=== PATIENT | female | born 1985 | race Caucasian/White ===

== ENCOUNTER 2022-12-24 14:55 | Outpatient (OUT) | payer OTHER, SELFPAY ==
--- NOTE | 2022-12-24 15:01 | CT_ITS ---
The [address] [address] Patient Name: TARYN SANTACRUZ MRN: [id number] date: 1985 Sex: F Assigned Patient Location: CT Current Patient Location: Accession/Order Number: [id number] Exam Date: 12/24/2022 15:06 Report Date: 12/25/2022 08:05 At the request of: NIRAV RAMOS Procedure: CT chest wo con EXAMINATION: CT chest wo con HISTORY: Multiple Pulmonary Nodules R91.8 COMPARISON: No relevant comparison available. TECHNIQUE: Multi-planar CT images were created with IV contrast. Axial, Coronal, and Sagittal images. Dose reduction techniques were achieved by using automated exposure control and/or adjustment of mA and/or kV according to patient size and/or use of iterative reconstruction technique. FINDINGS: LUNGS: A few scattered subcentimeter pulmonary nodules noted throughout both lungs the largest identified in the right upper lobe subpleural axial image #42 measuring 6 mm in diameter, semisolid. No bronchiectasis or peribronchial thickening. No focal parenchymal infiltrates PLEURA: No mass, effusion, or pneumothorax. VASCULATURE: No abnormality. LISA: No mass or adenopathy. MEDIASTINUM: No mass or adenopathy. CARDIAC: No enlargement, pericardial thickening, or significant calcification. AORTA: No aneurysm or dissection. CHEST WALL: No mass or axillary adenopathy. BONES: No bone lesion or fracture. LIMITED ABDOMEN: No suspicious findings. Limited images of the upper abdomen. OTHER: Negative. CT/CT chest wo con IMPRESSION: Scattered pulmonary nodules measuring up to 6 mm in the right, nonspecific Electronically authenticated by: SHIVANI METZGER Date: 12/25/2022 08:05
== END 2022-12-24 14:56 | disposition home or self-care (01) ==
LOC: CT 14:55
PROVIDERS: PCP Internal Medicine; Visit Provider Internal Medicine
DX: R91.8 Other nonspecific abnormal finding of lung field (principal)
CPT/HCPCS: 71250

== ENCOUNTER 2023-04-19 06:38 | Outpatient (OUT) | payer OTHER, SELFPAY ==
[2023-04-19 07:32] LABS: Bilirubin Urine NEGATIVE (NEGATIVE); Blood Urine TRACE-I (NEGATIVE); Clarity Urine CLEAR (CLEAR); Color Urine YELLOW (YELLOW); Glucose Urine UA NEGATIVE (NEGATIVE); Ketones Urine TRACE mg/dL (NEGATIVE); Leukocyte Esterase Urine NEGATIVE (NEGATIVE); Nitrite Urine NEGATIVE (NEGATIVE); Protein Urine NEGATIVE (NEG/TRACE); Urobilinogen Urine 0.2 EU/dL (0.2-1.0); pH Urine 6.5 (5.0-9.0)
[2023-04-19 07:56] LABS: Bacteria Urine NONE SEEN #/HPF (NONE SEEN); Microalbumin Urine Random <1.3 mg/dL (<=30.0); Mucus Urine NONE SEEN (NONE SEEN); RBC Urine 0-2 #/HPF (0-2); Squamous Epithelial Cell Urine FEW #/LPF (NONE/RARE); WBC Urine NONE SEEN #/HPF (NONE SEEN)
[2023-04-19 07:56] LABS: Chol HDL Ratio 3.3; Cholesterol 175 mg/dL (<=200); Estimated GFR (African America >60 (>=60); Estimated GFR (Non-African Ame >60 (>=60); Glucose 92 mg/dL (74-106); HDL Cholesterol 53 mg/dL (40-60); Phosphorus 2.9 mg/dL (2.6-4.7); Triglycerides 70 mg/dL (<=150)
[2023-04-19 08:14] LABS: Estimated Average Glucose 91 mg/dL; Glycohemoglobin A1C 4.8 % (4.5-6.2)
== END 2023-04-19 06:39 | disposition home or self-care (01) ==
LOC: LAB 06:43
PROVIDERS: PCP Internal Medicine
DX: Z52.4 Kidney donor (principal)
CPT/HCPCS: 36415; 80061; 81001; 82043; 82565; 82947; 83036; 84100; 86900; 86901

== ENCOUNTER 2024-02-04 14:59 | Outpatient (OUT) | payer OTHER, SELFPAY ==
--- OUTSIDE RECORDS SUMMARY | 2024-02-04 15:26 | XMS_ITS | CCD ---
Author Organization [facility] Care Team Providers Care Art History Professor Name Role Phone MICHELINE BELLE Unavailable Unavailable FLAQUITO MASSEY Unavailable Unavailable Tonia Morin Unavailable Tonia Morin Unavailable SAMSA, NIRAV Primary Care Unavailable SHIVANI KENDRICK Consulting Unavailable FORTE, QUINN Admitting Unavailable FORTE, QUINN Attending Unavailable ANDRE RED Consulting Unavailable FORTE, QUINN Consulting Unavailable SAMSA, NIRAV Primary Care Unavailable SAMSA, NIRAV Admitting Unavailable SAMSA, NIRAV Attending Unavailable SAMSA, NIRAV Consulting Unavailable SAMSA, NIRAV Primary Care Unavailable SAMSA, NIRAV Admitting Unavailable SAMSA, NIRAV Attending Unavailable DR VALENCIA KEMP Consulting Unavailable SAMSA, NIRAV Consulting Unavailable SAMSA, NIRAV Primary Care Unavailable SAMSA, NIRAV Admitting Unavailable SAMSA, NIRAV Attending Unavailable SAMSA, NIRAV Consulting Unavailable Wes Chaves Attending Unavailable Wes Chaves Admitting Unavailable Tonia Morin Primary Care Unavailable DO Tonia Morin Primary Care Provider [phone] DO Wes Chaves Attending Provider [facility], Other Unavailable Christopher-Archuleta DO, Fatou Primary Care Provider NASEEM BAGLEY Attending Unavailable NASEEM BAGLEY Referring Unavailable CHRISTOPHER-EMERY, FATOU Primary Care Unavailable SELF, SELF Referring Unavailable CHRISTOPHER-EMERY, FATOU Primary Care Unavailable CHRISTOPHER-EMERY, FATOU Primary Care Unavailable JOAB AMER Referring Unavailable YUMIKO MAZARIEGOSER Attending Unavailable CHRISTOPHER-EMERY, FATOU Primary Care Unavailable SELF, SELF Referring Unavailable NASEEM BAGLEY Attending Unavailable CHRISTOPHER-EMERY, FATOU Primary Care Unavailable SELF, SELF Referring Unavailable RAJAB, AMER Attending Unavailable RAJAB, AMER Referring Unavailable CHRISTOPHER-EMERY, FATOU Primary Care Unavailable RAJAB, AMER Attending Unavailable BALDERRAMA, BEBETO Admitting Unavailable BALDERRAMA, BEBETO Attending Unavailable CHRISTOPHER-EMERY, FATOU Primary Care Unavailable RAJAB, AMER Attending Unavailable CHRISTOPHER-EMERY, FATOU Primary Care Unavailable SELF, SELF Referring Unavailable RAJAB, AMER Referring Unavailable RAJAB, AMER Attending Unavailable CHRISTOPHER-EMERY, FATOU Primary Care Unavailable CHRISTOPHER-EMERY, FATOU Primary Care Unavailable SELF, SELF Referring Unavailable RAJAB, AMER Attending Unavailable Ashwin-Fatou Alarcon DO Primary Care Provider Fatou Marr DO Unavailable FATOU MARR Attending Unavailab FATOU Cabezas Referring Unavailab le MAY THOMAS Attending Unavailable Medications Current Medications Medication Drug Class(es) Dates Sig (Normalized) Sig (Original) acetaminophen 325 mg oral tablet (5 sources) Start: 08-25-2023 End: 09-01-2023 take 2 tablets by mouth every six hours as needed Acetaminophen 325 MG tablet Take 2 tablets by mouth every 6 hours as needed for Mild Pain or Moderate Pain for up to 7 days. Maximum dose 4000 mg from all sources in 24 hours. 56 tablet 08/25/2023 Active Start: 08-23-2023 End: 08-25-2023 650 mg, Oral, EVERY 6 HOURS, First dose on Sat08/23/23 at 1800, Until Discontinued, Maximum dose of acetaminophen is 4000 mg from all sources in 24 hours., Post-op/Post-Proc ascorbic acid 500 mg chewable tablet (11 sources) Vitamin C take 1 tablet by jono th in the morning ascorbic acid (Vitamin C) 500 MG tablet Take 500 mg by mouth in the morning. Active End: 08-22-2023 Ascorbic Acid (VITAMIN C PO) Take by mouth. 08/22/2023 Discontinued (Medication Reconciliation (suppress cancel msg)) Ascorbic Acid (V ITAMIN C PO) Take by mouth. Active Breo Ellipta 200-25 MCG/INH (1 source) take 1 puff(s) by inhalation once daily Breo Ellipta 200-25 MCG/INH 1 puff Inhalation Once a day Active cephalexin 500 mg oral capsule (1 source) Cephalosporin Antibacterial Start: 2018 take 1 capsule by mouth every six hours Cephalexin (Keflex) 500 mg capsule Active 500 MG PO Q6H 28 October 27, 2018 12:00am cholecalciferol 0.025 mg oral capsule (10 sources) Vitamin D take 1 capsule by mouth once daily cholecalciferol (Vitamin D-3) 25 MCG (1000 UT) capsule Take 1 capsule by mouth 1 (one) time each day at the same time. Active Cholecalciferol (VITAMIN D-3 PO) Take by mouth. Active docusate sodium 100 mg oral capsule (2 sources) Start: 08-23-2023 End: 09-01-2023 take 1 capsule by mouth twice daily docusate 100 MG capsule Take 1 capsule by mouth 2 times daily for 7 days. Hold for loose stool 14 capsule 08/25/2023 09/01/2023 Active 0.4 ml enoxaparin sodium 100 mg/ml prefilled syringe (2 sources) Low Molecular Weight Heparin Start: 08-25-2023 End: 09-24-2023 inject 40 mg by subcutaneous injection every twenty-four hours Enoxaparin Sodium 40 MG/0.4ML injection Inject one syringe (0.4 mL) under the skin every 24 hours. 12 mL 08/25/2023 09/24/2023 Active ethinyl estradiol 0.02 mg / norethindrone acetate 1 mg oral tablet (13 sources) Estrogen Start: 01-09-2024 End: 01-08-2025 norethindrone-ethi nyl estradiol (Loestrin 120, 21,) 1-20 MG-MCG tablet Indications: Encounter for surveillance of contraceptive pills Take 1 tablet by mouth Daily Take continuous. 84 tablet 4 01/09/2024 01/08/2025 Active Start: 08-24-2023 End: 08-25-2023 take 1 tablet by mouth once daily 1 tablet, Oral, DAILY, First dose on 08/24/23 at 1215, Until Discontinued Start: 03-01-2023 End: 01-09-2024 take 1 tablet by mouth in the morning Loestrin 1/20, 21, 1-20 MG-MCG tablet Indications: Encounter for surveillance of contraceptive pills Take 1 tablet by mouth in the morning. Take continuous.. 84 tablet 4 03/01/2023 01/09/2024 Discontinued (Reorder) {21 (ethinyl estradiol 0.035 MG / norgestimate 0.25 MG Oral Tablet) / 7 (inert ingredients 1 MG Oral Tablet) } Pack (2 sources) Progestin, Estrogen take 1 tablet by mouth every twenty-four hours Norgestimate-Eth Estradiol 0.25-35 MG-MCG 1 tablet Orally Once a day for 28 day(s) Active 30 actuat fluticasone furoate 0.2 mg/actuat / vilanterol 0.025 mg/actuat dry powder inhaler (1 source) Corticosteroid, beta2-Adrenergic Agonist take 1 puff(s) by inhalation once daily Breo Ellipta 200-25 MCG/INH 1 puff Inhalation Once a day Active Fluticasone-Umeclidi n-Vilant (TRELEGY ELLIPTA IN) (6 sources) Fluticasone-Umec lidin- Vilant (TRELEGY ELLIPTA IN) Inhale. Active Fluticasone-Umeclidi n-Vilant (Trelegy Ellipta) 200-62.5-25 MCG/ACT aerosol powder (2 sources) take 1 puff(s) by inhalation in the morning Fluticasone-Umeclidin- Vilant (Trelegy Ellipta) 200-62.5-25 MCG/ACT aerosol powder Inhale 1 puff in the morning. Rx'd by Dr. Hewitt. Active Fluticasone-Umeclidi n-Vilant 200-62.5-25 MCG/ACT Aerosol Powder, breath activated (2 sources) take 1 puff(s) by inhalation once daily Fluticasone-Umeclidin- Vilant 200-62.5-25 MCG/ACT Aerosol Powder, breath activated Inhale 1 puff daily. Active ibuprofen 600 mg oral tablet (1 source) Nonsteroidal Anti-inflammatory Drug Start: 2018 take 600 mg by mouth every six hours Ibuprofen Active 600 MG PO Q6H October 22, 2018 12:00am meclofenamate 100 mg oral capsule (1 source) Start: 2018 take 100 mg by mouth three times daily Meclofenamate Active 100 MG PO Three times daily 9 3 October 27, 2018 12:00am melatonin 5 mg sublingual tablet (2 sources) Melatonin [address] 5 mg under the tongue as needed at bedtime (sleep issues). Active metroNIDAZOLE 500 mg oral tablet (1 source) Nitroimidazole Antimicrobial Start: 2018 take 1 tablet by mouth twice daily Metronidazole (Flagyl) 500 mg tablet Active 500 MG PO Twice daily 14 October 27, 2018 12:00am Multiple Vitamin (multivitamin) capsule (8 sources) take 1 capsule by mouth once daily Multiple Vitamin (multivitamin) capsule Take 1 capsule by mouth daily. Active Multiple Vitamins-Minerals (MULTIVITAMIN GUMMIES ADULTS PO) (2 sources) take 1 tablet by mouth in the morning Multiple Vitamins-Minerals (MULTIVITAMIN GUMMIES ADULTS PO) Take 1 tablet by mouth in the morning. Active ondansetron 4 mg disintegrating oral tablet (2 sources) Serotonin-3 Receptor Antagonist Start: 2023 End: 2023 take 1 tablet by mouth every eight hours as needed Ondansetron 4 MG Tab Dispersible tablet Take 1 tablet by mouth every 8 hours as needed for Nausea / Vomiting for up to 3 days. 9 tablet 08/25/2023 08/28/2023 Active Start: 08-23-2023 End: 08-25-2023 take 4 mg intravenously every four hours as needed 4 mg, Intravenous, EVERY 4 HOURS NEEDED, Starting on 08/23/23 at 1557, Until 08/25/23 at 1837, Nausea / Vomiting, 1st Line, Post-op/Post-Proc Probiotic Product (PROBIOTIC PO) (8 sources) take 1 tablet by jono th once daily Probiotic Product (PROBIOTIC PO) Take 1 tablet by mouth daily. Active Probiotic Produc t (PROBIOTIC PO) Take by mouth. Active traMADol hydrochloride 50 mg oral tablet (4 sources) Opioid Agonist Start: 08-23-2023 End: 09-01-2023 take 1 tablet by mouth every six hours as needed for pain traMADol 50 MG tablet Indications: Renal donor Take 1 tablet by mouth every 6 hours as needed for Moderate Pain (First line pain) for up to 7 days. 28 tablet 08/25/2023 Active Start: 10-27-2018 Tramadol (Ultr am) 50 mg tablet Active 50 MG PO every 6 to 8 hours 7 3 October 27, 2018 12:00am turmeric extract 500 mg oral capsule (2 sources) take 1 tablet by jono th once daily Turmeric 500 MG capsule Take 1 tablet by mouth 1 (one) time each day. Active Completed/Discontinued Medications Medication Drug Class(es) Dates Sig (Normalized) Sig (Original) [id number] 60 actuat albuterol 0.09 mg/actuat metered dose inhaler (4 sources) beta2-Adrenergic Agonist Start: 06-15-2021 take 2 puff(s) by inhalation twice daily as needed Albuterol Sulfate HFA 108 (90 Base) MCG/ACT Inhalation Aerosol Solution 2 puffs twice daily as needed Quantity: 0 Refills: 0 Ordered: 15-Jun-2021 DO Start : 15-Jun-2021 Active take 2 puff(s) by in halation every four hours for wheezing albuterol HFA 90 mcg/act inhaler Inhale 2 puffs every 4 (four) hours if needed for wheezing or shortness of breath. Rx'd by Dr. Hewitt Active Estradiol-Norethindrone Acet 0.5-0.1 MG Oral Tablet (2 sources) Start: 07-10-2021 Estradiol-Norethindrone Acet 0.5-0.1 MG Oral Tablet TAKE 1 TABLET DAILY. Quantity: 0 Refills: 0 Ordered: 10-Jul-2021 Juan C GARNER [facility] Start : 10-Jul-2021 Active Oyabzhzgzpk-Fbjoqpije-Za lant 200-62.5-25 MCG/ACT AEPB 1 puff ++Patient supplied++ (1 source) Start: 08-24-2023 End: 08-25-2023 take 1 puff(s) by inhalation once daily 1 puff, Inhalation, DAILY, First dose on Sat08/24/23 at 1115, Until Discontinued gabapentin 100 mg oral capsule (1 source) Anti-epilepti c Agent Start: 08-23-2023 End: 08-25-2023 take 100 mg by mouth once daily at bedtime 100 mg, Oral, DAILY AT BEDTIME, First dose on Sat08/23/23 at 2100, Until Discontinued, Post-op/Post-Proc Gadopiclenol SOLN 1-25 mL (1 source) Start: 06-24-2023 End: 06-24-2023 1-25 mL, Intravenous, ONCE, 1 dose, On Sat06/24/23 at 1715 1 ml heparin sodium, porcine 5000 unt/ml prefilled syringe (2 sources) Unfractionate d Heparin, Anti-coagulan t Start: 08-23-2023 End: 08-25-2023 inject 5000 [IU] by subcutaneous injection every eight hours 5,000 Units, Subcutaneous, EVERY 8 HOURS (0800/1600/2200), First dose on Sat08/23/23 at 1600, Until Discontinued, Post-op/Post-Proc Start: 08-23-2023 End: 08-23-2023 5,000 Units, Subcutaneous, O N CALL TO PROCEDURE, 1 dose, Starting on Sat08/23/23 at 0739, Until Sat08/23/23 at 1142, Other, Pre-op/Pre-Proc 1 ml HYDROmorphone hydrochloride 1 mg/ml cartridge (1 source) Opioid Agonist Start: 08-23-2023 End: 08-23-2023 0.5 mg, Intravenous, EVERY 10 MINUTES NEEDED, 8 doses, Starting on Sat08/23/23 at 1453, Until Sat08/23/23 at 1550, Moderate Pain, Severe Pain, May give a total of 4mg in PACU., Recovery iohexol (OMNIPAQUE) 350 MG/ML injection 1-171 mL (1 source) Start: 06-10-2023 End: 06-10-2023 1-171 mL, Intravenous, ONCE, 1 dose, On Sat06/10/23 at 1115, Extravasation Risk, CT Procedure 1 ml ketorolac tromethamine 15 mg/ml cartridge (1 source) Nonsteroidal Anti-inflammatory Drug, Cyclooxygenase Inhibitor Start: 08-23-2023 End: 08-25-2023 15 mg, Intravenous, EVERY 6 HOURS, 8 doses, First dose on Sat08/23/23 at 1800, Last dose on Sat08/25/23 at 1200, Post-op/Post-Proc promethazine hydrochloride 25 mg oral tablet (1 source) Phenothiazine Start: 08-25-2023 End: 08-25-2023 take 1 dose by mouth once 25 mg, Oral, ONCE, 1 dose, On Sat08/25/23 at 1300 sennosides, snf 8.6 mg oral tablet (1 source) Start: 08-23-2023 End: 08-25-2023 take 8.6 mg by mouth twice daily 8.6 mg, Oral, 2 TIMES DAILY, First dose on Sat08/23/23 at 1700, Until Discontinued, Post-op/Post-Proc simethicone 80 mg chewable tablet (1 source) Start: 08-23-2023 End: 08-25-2023 take 1 tablet by mouth every four hours as needed 80 mg, Oral, EVERY 4 HOURS NEEDED, Starting on Sat08/23/23 at 1557, Until 08/25/23 at 1837, Gas, Post-op/Post-Proc 1000 ml sodium chloride 9 mg/ml injection (4 sources) Start: 08-23-2023 End: 08-24-2023 Intravenous, at 100 mL/hr, CONTINUOUS, Starting on Sat08/23/23 at 1600, Until 08/24/23 at 0820, Post-op/Post-Proc Start: 06-24-2023 End: 06-24-2023 1-250 mL, Intravenous, ONCE NEEDED, 1 dose, Starting on Sat06/24/23 at 1713, Until Sat06/24/23 at 1717, Flush, MR Procedure Start: 06-10-2023 End: 06-10-2023 1-100 mL, Intravenous, ONCE NEEDED, 1 dose, Starting on Sat06/10/23 at 1102, Until Sat06/10/23 at 1103, Flush, CT Procedure Problems Active Problems Problem Classification Problem Date Documented Da te Episodic/Chronic Acquired foot deformities (2 sources) Bunion; Translations: [Bunion of right foot] Episodic Acute and chronic tonsillitis (2 sources) Hypertrophy of tonsils; Translations: [Hypertrophy of tonsils] Chronic Asthma (5 sources) Asthma; Translations: [Asthma, unspecified type, unspecified] Onset: 04-17-2021 03-06-2023 Chronic Contraceptive and procreative management (2 sources) Oral contraception; Translations: [Encounter for surveillance of contraceptive pills] 01-08-2024 Episodic Endometriosis (3 sources) Endometriosis, unspecified; Translations: [Endometriosis (clinical)] Onset: 02-28-2022 11-08-2022 Chronic Mood disorders (2 sources) Major depression, single episode; Translations: [Major depressive disorder, single episode, unspecified] Onset: 11-08-2022 11-08-2022 Chronic Nonspecific chest pain (1 source) Chest pain, unspecified; Translations: [Chest pain, unspecified] Onset: 02-20-2018 Episodic Osteoarthritis (5 sources) Unspecified osteoarthritis, unspecified site; Translations: [Primary osteoarthritis, unspecified site] Onset: 02-24-2022 Chronic Other connective tissue disease (2 sources) Pain in limb; Translations: [Pain in left foot] Episodic Other connective tissue disease (2 sources) Foot pain; Translations: [Pain in right foot] Episodic Other female genital disorders (1 source) Abnormal vaginal bleeding; Translations: [Abnormal uterine and vaginal bleeding, unspecified] 10-27-2018 Chronic Other gastrointestinal disorders (2 sources) Irritable bowel syndrome characterized by constipation; Translations: [Irritable bowel syndrome with constipation] Onset: 03-06-2023 03-06-2023 Chronic Other lower respiratory disease (5 sources) Other nonspecific abnormal finding of lung field; Translations: [OTH NONSPECIFIC ABN FIND LNG FIELD] Onset: 12-26-2021 Episodic Other nervous system disorders (2 sources) Chronic pain; Translations: [Other chronic pain] Chronic Other nervous system disorders (2 sources) Chronic pain syndrome; Translations: [Chronic pain syndrome] Onset: 11-09-2022 11-13-2022 Chronic Other screening for suspected conditions (not mental disorders or infectious disease) (2 sources) Cancer cervix screening status; Translations: [Encounter for screening for malignant neoplasm of cervix] 01-08-2024 Episodic Other upper respiratory infections (1 source) Chronic sinusitis, unspecified; Translations: [CHRONIC SINUSITIS UNSPECIFIED] Onset: 04-17-2021 Chronic Residual codes; unclassified (1 source) Periodic limb movement disorder; Translations: [PERIODIC LIMB MOVEMENT DISORDER] Onset: 02-28-2022 Chronic Residual codes; unclassified (1 source) Hypersomnia, unspecified; Translations: [HYPERSOMNIA UNSPECIFIED] Onset: 02-28-2022 Chronic Residual codes; unclassified (4 sources) Obstructive sleep apnea (adult) (pediatric); Translations: [OBSTRUCTIVE SLEEP APNEA] Onset: 01-30-2022 Chronic Residual codes; unclassified (1 source) Idiopathic hypersomnia with long sleep time; Translations: [IDIO HYPERSOMNIA W/LONG SLEEP TIME] Onset: 02-05-2022 Chronic Residual codes; unclassified (2 sources) Periodic limb movement disorder; Translations: [Periodic limb movement disorder] Onset: 11-09-2022 03-06-2023 Chronic Residual codes; unclassified (2 sources) Hypersomnia; Translations: [Hypersomnia, unspecified] Onset: 11-09-2022 11-09-2022 Chronic Syncope (1 source) Syncope Onset: 02-20-2018 Systemic lupus erythematosus and connective tissue disorders (3 sources) Granulomatosis with polyangiitis; Translations: [Steffen's granulomatosis without renal involvement] Onset: 02-28-2021 Resolved: 02-28-2021 Chronic Unclassified (2 sources) Chest pain, unspecified / R07.9(ICD-9) Onset: 02-20-2018 Urinary tract infections (1 source) Acute cystitis; Translations: [Acute cystitis without hematuria] 10-27-2018 Episodic Past or Other Problems Problem Classification Problem Date Documented Date Episodic/Chronic Immunizations and screening for infectious disease (7 sources) Anti-nuclear factor positive; Translations: [Other and unspecified nonspecific immunological findings] Onset: 02-28-2022 11-09-2022 Episodic Other lower respiratory disease (2 sources) Multiple nodules of lung; Translations: [Other nonspecific abnormal finding of lung field] Onset: 11-09-2022 03-06-2023 Episodic Residual codes; unclassified (13 sources) Kidney donor; Translations: [Kidney donors] Onset: 08-23-2023 06-09-2023 Episodic Results Test Name Value Interpretation Reference Range Facility CBC AND ELECTRONIC DIFFon Basophils (Bld) [#/Vol] 0.08 10*3/uL 0.00 - 0.15 K/uL [facility] Basophils/100 WBC (Bld) 1.2 % [facility] Differential cell count method Nom (Bld) Electronic Differential [facility] Eosinophils (Bld) [#/Vol] 0.08 10*3/uL 0.00 - 0.42 K/uL [facility] Eosinophils/100 WBC (Bld) 1.2 % [facility] Erythrocyte distribution width (RBC) [Ratio] 12.1 % 10.8 - 14.9 % [facility] Hematocrit (Bld) [Volume fraction] 43.1 % 34.9 - 44.3 % [facility] Hemoglobin (Bld) [Mass/Vol] 13.6 g/dL 11.4 - 15.2 g/dL [facility] Immature granulocytes (Bld) [#/Vol] K/uL NINF - 0.08 K/uL [facility] Immature granulocytes/100 WBC (Bld) 0.4 % [facility] Interpretation and review of laboratory results Abnormal [facility] Lymphocytes (Bld) [#/Vol] 2.17 10*3/uL 1.16 - 3.51 K/uL [facility] Lymphocytes/100 WBC (Bld) 32.4 % [facility] MCH (RBC) [Entitic mass] 28.4 pg 25.9 - 33.9 pg [facility] MCHC (RBC) [Mass/Vol] 31.6 g/dL 31.4 - 35.9 g/dL [facility] MCV (RBC) [Entitic vol] 90.0 fL 79.6 - 97.7 fL [facility] Monocytes (Bld) [#/Vol] 0.63 10*3/uL 0.22 - 0.87 K/uL [facility] Monocytes/100 WBC (Bld) 9.4 % [facility] Neutrophils (Bld) [#/Vol] 3.70 10*3/uL 1.64 - 7.28 K/uL [facility] Nucleated RBC/100 WBC (Bld) [Ratio] 0.0 % [facility] Platelet mean volume (Bld) [Entitic vol] 9.2 fL 8.5 - 12.2 fL [facility] Platelets (Bld) [#/Vol] 482 10*3/uL High 150 - 393 K/uL [facility] RBC (Bld) [#/Vol] 4.79 10*6/uL [facility] Segmented neutrophils/100 WBC (Bld) 55.4 % [facility] WBC (Bld) [#/Vol] 6.69 10*3/uL 3.99 - 11. 19 K/uL [facility] Basophils (Bld) [#/Vol] 0.08 10*3/uL Normal 0.00-0.15 [facility] Comment on above: Performed By: #### P TPTT #### [facility] (DEFAULT) [address] [address] Basophils/100 WBC (Bld) 1.2 % Normal [facility] Comment on above: Performed By: #### P TPTT #### [facility] (DEFAULT) [address] [address] DIFF STATUS Electronic Differential Normal [facility] Comment on above: Performed By: #### P TPTT #### [facility] (DEFAULT) [address] [address] Eosinophils (Bld) [#/Vol] 0.08 10*3/uL Normal 0.00-0.42 [facility] Comment on above: Performed By: #### P TPTT #### [facility] (DEFAULT) [address] [address] Eosinophils/100 WBC (Bld) 1.2 % Normal [facility] Comment on above: Performed By: #### P TPTT #### [facility] (DEFAULT) [address] [address] Hematocrit (Bld) [Volume fraction] 43.1 % Normal 34.9-44.3 [facility] Comment on above: Performed By: #### P TPTT #### [facility] (DEFAULT) [address] [address] Hemoglobin (Bld) [Mass/Vol] 13.6 g/dL Normal 11.4-15.2 [facility] Comment on above: Performed By: #### P TPTT #### [facility] (DEFAULT) [address] [place] [address] Immature Grans % 0.4 % Normal [facility] Comment on above: Performed By: #### P TPTT #### [facility] (DEFAULT) [address] [address] Immature Grans Absolute < Normal <=0.08 [facility] Comment on above: Performed By: #### P TPTT #### [facility] (DEFAULT) [address] [address] Lymphocytes (Bld) [#/Vol] 2.17 10*3/uL Normal 1.16-3.51 [facility] Comment on above: Performed By: #### P TPTT #### [facility] (DEFAULT) [address] [address] Lymphocytes/100 WBC (Bld) 32.4 % Normal [facility] Comment on above: Performed By: #### P TPTT #### [facility] (DEFAULT) [address] [address] MCV (RBC) [Entitic vol] 90.0 fL Normal 79.6-97.7 [facility] Comment on above: Performed By: #### P TPTT #### [facility] (DEFAULT) [address] [address] Mean Cell Hgb 28.4 pg Normal 25.9-33.9 [facility] Comment on above: Performed By: #### P TPTT #### [facility] (DEFAULT) [address] [address] Mean Cell Hgb Conc 31.6 g/dL Normal 31.4-35.9 [facility] Comment on above: Performed By: #### P TPTT #### [facility] (DEFAULT) [address] [address] Monocytes (Bld) [#/Vol] 0.63 10*3/uL Normal 0.22-0.87 [facility] Comment on above: Performed By: #### P TPTT #### [facility] (DEFAULT) [address] [place] [address] Monocytes/100 WBC (Bld) 9.4 % Normal [facility] Comment on above: Performed By: #### P TPTT #### [facility] (DEFAULT) [address] [place] [address] Nucleated RBC 0.0 /100 WBC Normal <=0.2 [facility] Comment on above: Performed By: #### P TPTT #### [facility] (DEFAULT) [address] [place] [address] Platelet mean volume (Bld) [Entitic vol] 9.2 fL Normal 8.5-12.2 [facility] Comment on above: Performed By: #### P TPTT #### [facility] (DEFAULT) [address] [place] [address] Platelets (Bld) [#/Vol] 482 10*3/uL High 150-393 [facility] Comment on above: Performed By: #### P TPTT #### [facility] (DEFAULT) [address] [place] [address] RBC (Bld) [#/Vol] 4.79 10*6/uL Normal 3.91-5.04 [facility] Comment on above: Performed By: #### P TPTT #### [facility] (DEFAULT) [address] [place] [address] RBC Distribution 12.1 % Normal 10.8-14.9 [facility] Comment on above: Performed By: #### P TPTT #### [facility] (DEFAULT) [address] [place] [address] Segs + Bands Auto 55.4 % Normal [facility] Comment on above: Performed By: #### P TPTT #### [facility] (DEFAULT) [address] [place] [address] Segs + Bands,Absolute Auto 3.70 K/uL Normal 1.64-7.28 [facility] Comment on above: Performed By: #### P TPTT #### [facility] (DEFAULT) [address] [place] [address] WBC (Bld) [#/Vol] 6.69 10*3/uL Normal 3.99-11.19 [facility] Comment on above: Performed By: #### P TPTT #### [facility] (DEFAULT) [address] [place] [address] CHEM 7 (LYTES,BUN,CREA,GLUC) on 09-18-2023 Anion gap [Moles/Vol] 12 mmol/L 7 - 17 mmol/L [facility] Chloride [Moles/Vol] 102 mmol/L 98 - 10 8 mmol/L [facility] CO2 [Moles/Vol] 29 mmol/L 21 - 31 mmol/L [facility] Creatinine [Mass/Vol] 1.19 mg/dL 0.50 - 1.20 mg/dL [facility] eGFR, CKD-EPI, Female 63 - PINF [facility] Comment on above: Reported eGFR is bas ed on the CKD-EPI 2020 equation using creatinine, age, and sex. Glucose [Mass/Vol] 88 mg/dL 70 - 99 mg/dL [facility] Osmolality Calc [Osmolality] 291 [facility] Potassium [Moles/Vol] 3.8 mmol/L 3.5 - 5.0 mmol/L [facility] Sodium [Moles/Vol] 139 mmol/L 135 - 145 mmol/L [facility] Urea nitrogen [Mass/Vol] 17 mg/dL 7 - 25 mg/dL [facility] Urea nitrogen/Creatinine [Mass ratio] 14 mg/mg [facility] Anion gap [Moles/Vol] 12 mmol/L Normal 7-17 [facility] Comment on above: Performed By: #### H LAB #### [facility] (DEFAULT) [address] [place] [address] 40987 Chloride [Moles/Vol] 102 mmol/L Normal 98-108 [facility] Comment on above: Performed By: #### H LAB #### [facility] (DEFAULT) [address] [place] [address] 61256 CO2 [Moles/Vol] 29 mmol/L Normal 21-31 [facility] Comment on above: Performed By: #### H LAB #### [facility] (DEFAULT) [address] [place] [address] 01977 Creatinine [Mass/Vol] 1.19 mg/dL Normal 0.50-1.20 [facility] Comment on above: Performed By: #### H LAB #### [facility] (DEFAULT) [address] [place] [address] 04450 GFR/1.73 sq M.predicted among non-blacks MDRD (S/P/Bld) [Vol rate/Area] 61 mL/min/{1.73_m2} Normal >=60 [facility] Comment on above: Result Comment: Repo rted eGFR is based on the CKD-EPI 2020 equation using creatinine, age, and sex. Performed By: #### H LAB #### [facility] (DEFAULT) [address] [place] [address] 54826 Glucose [Mass/Vol] 88 mg/dL Normal 70-99 [facility] Comment on above: Performed By: #### H LAB #### [facility] (DEFAULT) [address] [place] [address] 51595 Osmolality [Osmolality] 291 mosm/kg Normal 278-305 [facility] Comment on above: Performed By: #### H LAB #### [facility] (DEFAULT) [address] [address] Potassium [Moles/Vol] 3.8 mmol/L Normal 3.5-5.0 [facility] Comment on above: Performed By: #### H LAB #### [facility] (DEFAULT) [address] [place] [address] 99598 Sodium [Moles/Vol] 139 mmol/L Normal 135-145 [facility] Comment on above: Performed By: #### H LAB #### [facility] (DEFAULT) [address] [place] [address] 03241 Urea nitrogen [Mass/Vol] 17 mg/dL Normal 7-25 [facility] Comment on above: Performed By: #### H LAB #### [facility] (DEFAULT) [address] [address] Urea nitrogen/Creatinine [Mass ratio] 14 mg/mg Normal [facility] Comment on above: Performed By: #### H LAB #### [facility] (DEFAULT) [address] [place] [address] 96337 URINALYSIS REFLEX TO CULTURE PERFORMABLEon 09-18-2023 Appearance (U) Clear Clear [facility] Bacteria LM Ql (Urine sed) ABSENT ABSENT [facility] Color (U) Yellow Yellow [facility] Epithelial cells.squamous LM Ql (Urine sed) 0-2/hpf 0-2/hpf, 3-5/hpf = 1+ [facility] Glucose Test strip (U) [Mass/Vol] Negative Negative [facility] Interpretation and review of laboratory results Abnormal [facility] Ketones (U) [Mass/Vol] Negative Negative [facility] Leukocyte esterase Test strip Ql (U) Trace Abnormal Negative [facility] Nitrite Ql (U) [facility] pH (U) 7.0 [pH] 5.0 - 7.0 [facility] Protein (U) [Mass/Vol] Negative Negative [facility] RBC (U) [#/Vol] [facility] RBC LM.HPF (Urine sed) [#/Area] 0-[facility] Specific gravity (U) [Rel density] 1.008 1.001 - 1.035 [facility] Urobilinogen (U) [Mass/Vol] 0.2 E.U./dL 0.2 E.U/dL, 1.0 E.U/dL [facility] WBC LM.HPF (Urine sed) [#/Area] 0 - 5 [facility] Appearance (U) Clear Normal Clear [facility] Comment on above: Performed By: #### U RIN #### [facility] (DEFAULT) [address] [place] [address] 19306 Bacteria ABSENT Normal ABSENT [facility] Comment on above: Performed By: #### U RIN #### [facility] (DEFAULT) [address] [place] [address] 19262 Blood Urine Negative Normal Negative [facility] Comment on above: Performed By: #### U RIN #### [facility] (DEFAULT) [address] [place] [address] 89527 Color (U) Yellow Normal Yellow [facility] Comment on above: Performed By: #### U RIN #### [facility] (DEFAULT) [address] [place] [address] 99182 Glucose Ql (U) Negative Normal Negative [facility] Comment on above: Performed By: #### U RIN #### [facility] (DEFAULT) [address] [place] [address] 19938 Ketones Ql (U) Negative Normal Negative [facility] Comment on above: Performed By: #### U RIN #### [facility] (DEFAULT) [address] [place] [address] 95353 Leukocyte esterase Test strip Ql (U) Trace Abnormal Negative [facility] Comment on above: Performed By: #### U RIN #### [facility] (DEFAULT) [address] [place] [address] 08631 Nitrites Urine Negative Normal Negative [facility] Comment on above: Performed By: #### U RIN #### [facility] (DEFAULT) [address] [place] [address] 46170 pH (U) 7.0 [pH] Normal 5.0-7.0 [facility] Comment on above: Performed By: #### U RIN #### [facility] (DEFAULT) [address] [place] [address] 51636 Protein Urine Negative Normal Negative [facility] Comment on above: Performed By: #### U RIN #### [facility] (DEFAULT) [address] [place] [address] 38606 RBC Urine 0-2 Normal 0-2 [facility] Comment on above: Performed By: #### U RIN #### [facility] (DEFAULT) [address] [place] [address] 69590 Specific [place] Urine 1.008 Normal 1.001-1.035 [facility] Comment on above: Performed By: #### U RIN #### [facility] (DEFAULT) [address] [place] [address] 77203 Squamous/Epithelial Cells 0-2/hpf Normal 0-2/hpf, 3-5/hpf = 1+ [facility] Comment on above: Performed By: #### U RIN #### [facility] (DEFAULT) [address] [place] [address] 36121 Urobilinogen Urine 0.2 E.U./dL Normal 0.2 E.U/d L, 1.0 E.U/dL [facility] Comment on above: Performed By: #### U RIN #### [facility] (DEFAULT) [address] [place] [address] 37966 WBC Urine 0 - 5 Normal 0 - 5 [facility] Comment on above: Performed By: #### U RIN #### [facility] (DEFAULT) [address] [place] [address] 01340 BUN CREAon 08-25-2023 Creatinine [Mass/Vol] 1.02 mg/dL 0.50 - 1.20 mg/dL [facility] eGFR, CKD-EPI, Female 75 - PINF [facility] Comment on above: Reported eGFR is bas ed on the CKD-EPI 2020 equation using creatinine, age, and sex. Urea nitrogen [Mass/Vol] 14 mg/dL 7 - 25 mg/dL [facility] Urea nitrogen/Creatinine [Mass ratio] 14 mg/mg [facility] Creatinine [Mass/Vol] 1.02 mg/dL Normal 0.50-1.20 [facility] Comment on above: Performed By: #### P TPTT #### [facility] (DEFAULT) [address] [place] [address] 76897 GFR/1.73 sq M.predicted among non-blacks MDRD (S/P/Bld) [Vol rate/Area] 73 mL/min/{1.73_m2} Normal >=60 [facility] Comment on above: Result Comment: Repo rted eGFR is based on the CKD-EPI 2020 equation using creatinine, age, and sex. Performed By: #### P TPTT #### [facility] (DEFAULT) [address] [place] [address] 08357 Urea nitrogen [Mass/Vol] 14 mg/dL Normal 7-25 [facility] Comment on above: Performed By: #### P TPTT #### [facility] (DEFAULT) [address] [place] [address] 26963 Urea nitrogen/Creatinine [Mass ratio] 14 mg/mg Normal [facility] Comment on above: Performed By: #### P TPTT #### [facility] (DEFAULT) [address] [place] [address] 82513 RUBENS AURIS SCREEN BY PCRO rdered By: Tuan Liu on 08-25-2023 Rubens auris Screen by PCR Not detected Not Detected [facility] Interpretation and review of laboratory results Normal [facility] This test was performed using a real-time PCR assay. This test was developed, and its performance characteristics determined by [facility]. It has not been cleared or approved by the FDA. The laboratory is regulated under CLIA as qualified to perform high-complexity testing. This test is used for clinical purposes. It should not be regarded as investigational or for research. This test was performed using a real-time PCR assay. This test was developed, and its performance characteristics determined by [facility]. It has not been cleared or approved by the FDA. The laboratory is regulated under CLIA as qualified to perform high-complexity testing. This test is used for clinical purposes. It should not be regarded as investigational or for research. [facility] BUN CREAon 08-24-2023 Creatinine [Mass/Vol] 1.16 mg/dL 0.50 - 1.20 mg/dL [facility] eGFR, CKD-EPI, Female 65 - PINF [facility] Comment on above: Reported eGFR is bas ed on the CKD-EPI 2021 equation using creatinine, age, and sex. Urea nitrogen [Mass/Vol] 12 mg/dL 7 - 25 mg/dL [facility] Urea nitrogen/Creatinine [Mass ratio] 10 mg/mg [facility] Creatinine [Mass/Vol] 1.16 mg/dL Normal 0.50-1.20 [facility] Comment on above: Performed By: #### H LAB #### [facility] (DEFAULT) [address] [place] [address] 03259 GFR/1.73 sq M.predicted among non-blacks MDRD (S/P/Bld) [Vol rate/Area] 63 mL/min/{1.73_m2} Normal >=60 [facility] Comment on above: Result Comment: Repo rted eGFR is based on the CKD-EPI 2021 equation using creatinine, age, and sex. Performed By: #### H LAB #### [facility] (DEFAULT) [address] [place] [address] 42621 Urea nitrogen [Mass/Vol] 12 mg/dL Normal 7-25 [facility] Comment on above: Performed By: #### H LAB #### [facility] (DEFAULT) [address] [place] [address] 14858 Urea nitrogen/Creatinine [Mass ratio] 10 mg/mg Normal [facility] Comment on above: Performed By: #### H LAB #### [facility] (DEFAULT) [address] [place] [address] 48394 HEMOGLOBIN & HEMATOCRITon Hematocrit (Bld) [Volume fraction] 39.9 % 34.9 - 44.3 % [facility] Hemoglobin (Bld) [Mass/Vol] 12.8 g/dL 11.4 - 15.2 g/dL [facility] Interpretation and review of laboratory results Normal [facility] Hematocrit (Bld) [Volume fraction] 39.9 % Normal 34.9-44.3 [facility] Comment on above: Performed By: #### H LAB #### [facility] (DEFAULT) [address] [place] [address] 01068 Hemoglobin (Bld) [Mass/Vol] 12.8 g/dL Normal 11.4-15.2 [facility] Comment on above: Performed By: #### H LAB #### [facility] (DEFAULT) [address] [place] [address] 52895 BETA HCG, URINE (POC DEVICE) on 08-23-2023 Beta HCG ( test) Ql (U) Negative Negative [facility] Interpretation and review of laboratory results Normal [facility] Test performed at address of the patient encounter. [facility] RUBENS AURIS SCREEN BY PCRo n 08-23-2023 Rubens auris Screen by PCR Not detected Normal Not Detected [facility] Comment on above: Order Comment: This test was performed using a real-time PCR assay. This test was developed, and its performance characteristics determined by [facility]. It has not been cleared or approved by the FDA. The laboratory is regulated under CLIA as qualified to perform high-complexity testing. This test is used for clinical purposes. It should not be regarded as investigational or for research. This test was performed using a real-time PCR assay. This test was developed, and its performance characteristics determined by [facility]. It has not been cleared or approved by the FDA. The laboratory is regulated under CLIA as qualified to perform high-complexity testing. This test is used for clinical purposes. It should not be regarded as investigational or for research. Performed By: #### C ROBIN AURIS SCREEN BY PCR #### [facility] (DEFAULT) [address] [place] [address] 17031 CARDIAC RHYTHM (SCANNED)on 0 08-23-2023 [facility] No Panel Informationon 08-22 Sample Received Yes [facility] PRE-TX LIVING DONOR ACD SAMP LE (TISSUE TYPING)on 08-23-2023 Sample Received Yes Normal [facility] Comment on above: Order Comment: Ok to use EDTA tube. Performed By: #### A COLBY #### [facility] (DEFAULT) [address] [place] [address] 22086 Performed By: #### C ANDIDA AURIS SCREEN BY PCR #### [facility] (DEFAULT) [address] [place] [address] 13142 [place] Unspecified body regionOr dered By: Unassigned Pacs on 08-23-2023 [facility] Work Phone: [place] Unspecified body regionon 08-23-2023 Radiology Study observation (narrative) [facility] BETA HCG, QUANT, BLOODon HCG (Quant) Serum <2.[address] [facility] Comment on above: Result Comment: Non- : <10 mIU/mL Postmenopause: <10 mIU/mL Male: <10 mIU/mL FEMALE GESTATIONAL AGE 2-4 Weeks: 39.1-8,388 mIU/mL 5-6 Weeks: 861-88,769 mIU/mL 6-8 Weeks: 8,636-218,085 mIU/mL 8-10 Weeks: 18,700-244,467 mIU/mL 10-12 Weeks: 23,143-181,899 mIU/mL 13-27 Weeks: 6,303-97,171 mIU/mL 24-40 Weeks: 4,360-74,883 mIU/mL Test results cannot be interpreted as absolute evidence for the presence or absence of malignant disease. Performed By: #### A BORH #### [facility] (DEFAULT) [address] [place] [address] 86402 CALCIUMon 08-12-2023 Calcium [Mass/Vol] 9.4 mg/dL Normal 8.6-10.5 [facility] Comment on above: Performed By: #### C A, MGO, CHM7, IPB #### [facility] (DEFAULT) [address] [place] [address] 43643 CBC,PLATELETSon 08-12-2023 Hematocrit (Bld) [Volume fraction] 47.1 % High 34.9-44.3 [facility] Comment on above: Performed By: #### C ANDIDA AURIS SCREEN BY PCR #### [facility] (DEFAULT) [address] [place] [address] 53924 Hemoglobin (Bld) [Mass/Vol] 14.8 g/dL Normal 11.4-15.2 [facility] Comment on above: Performed By: #### C ANDIDA AURIS SCREEN BY PCR #### [facility] (DEFAULT) [address] [address] MCV (RBC) [Entitic vol] 88.5 fL Normal 79.6-97.7 [facility] Comment on above: Performed By: #### C ANDIDA AURIS SCREEN BY PCR #### [facility] (DEFAULT) [address] [address] Mean Cell Hgb 27.8 pg Normal 25.9-33.9 [facility] Comment on above: Performed By: #### C ANDIDA AURIS SCREEN BY PCR #### [facility] (DEFAULT) [address] [address] Mean Cell Hgb Conc 31.4 g/dL Normal 31.4-35.9 [facility] Comment on above: Performed By: #### C ANDIDA AURIS SCREEN BY PCR #### [facility] (DEFAULT) [address] [address]22 Platelet mean volume (Bld) [Entitic vol] 9.6 fL Normal 8.5-12.2 [facility] Comment on above: Performed By: #### C ANDIDA AURIS SCREEN BY PCR #### [facility] (DEFAULT) [address] [place] [address] 10494 Platelets (Bld) [#/Vol] 351 10*3/uL Normal 150-393 [facility] Comment on above: Performed By: #### C ANDIDA AURIS SCREEN BY PCR #### [facility] (DEFAULT) [address] [place] [address] 11636 RBC (Bld) [#/Vol] 5.32 10*6/uL High 3.91-5.04 [facility] Comment on above: Performed By: #### C ANDIDA AURIS SCREEN BY PCR #### [facility] (DEFAULT) [address] [place] [address] 47641 RBC Distribution 12.1 % Normal 10.8-14.9 [facility] Comment on above: Performed By: #### C ANDIDA AURIS SCREEN BY PCR #### [facility] (DEFAULT) [address] [place] [address] 61852 WBC (Bld) [#/Vol] 7.52 10*3/uL Normal 3.99-11.19 [facility] Comment on above: Performed By: #### C ANDIDA AURIS SCREEN BY PCR #### [facility] (DEFAULT) [address] [place] [address] 71712 CHEM 7 (LYTES,BUN,CREA,GLUC) on 08-12-2023 Anion gap [Moles/Vol] 14 mmol/L Normal 7-17 [facility] Comment on above: Performed By: #### C A, MGO, CHM7, IPB #### [facility] (DEFAULT) [address] [place] [address] 58908 Chloride [Moles/Vol] 105 mmol/L Normal 98-108 [facility] Comment on above: Performed By: #### C A, MGO, CHM7, IPB #### [facility] (DEFAULT) [address] [place] [address] 71523 CO2 [Moles/Vol] 25 mmol/L Normal 21-31 [facility] Comment on above: Performed By: #### C A, MGO, CHM7, IPB #### [facility] (DEFAULT) [address] [place] [address] 68317 Creatinine [Mass/Vol] 0.80 mg/dL Normal 0.50-1.20 [facility] Comment on above: Performed By: #### C A, MGO, CHM7, IPB #### [facility] (DEFAULT) [address] [place] [address] 26457 eGFR, CKD-EPI, Female > Normal >=60 [facility] Comment on above: Result Comment: Repo rted eGFR is based on the CKD-EPI 2020 equation using creatinine, age, and sex. Performed By: #### C A, MGO, CHM7, IPB #### [facility] (DEFAULT) [address] [place] [address] 18023 Glucose [Mass/Vol] 100 mg/dL High 70-99 [facility] Comment on above: Performed By: #### C A, MGO, CHM7, IPB #### [facility] (DEFAULT) [address] [place] [address] 46092 Osmolality [Osmolality] 293 mosm/kg Normal 278-305 [facility] Comment on above: Performed By: #### C A, MGO, CHM7, IPB #### [facility] (DEFAULT) [address] [place] [address] 10211 Potassium [Moles/Vol] 4.0 mmol/L Normal 3.5-5.0 [facility] Comment on above: Performed By: #### C A, MGO, CHM7, IPB #### [facility] (DEFAULT) [address] [place] [address] 60908 Sodium [Moles/Vol] 140 mmol/L Normal 135-145 [facility] Comment on above: Performed By: #### JONO Buckner CHM7, IPB #### [facility] (DEFAULT) [address] [place] [address] 30424 Urea nitrogen [Mass/Vol] 14 mg/dL Normal 7-25 [facility] Comment on above: Performed By: #### JONO Buckner CHM7, IPB #### [facility] (DEFAULT) [address] [place] [address] 18734 Urea nitrogen/Creatinine [Mass ratio] 18 mg/mg Normal [facility] Comment on above: Performed By: #### JONO Buckner CHM7, DAMIANB #### [facility] (DEFAULT) [address] [place] [address] 96488 CMV IGG/IGM TOTAL - CIBCon 0 08-12-2023 CMV Antibody (total IgG/IgM) Negative Normal [facility] Comment on above: Result Comment: [id number] Testing performed by [address] [place] [address] Performed By: #### A BORH #### [facility] (DEFAULT) [address] [place] [address] 24097 DLIDON PERFOMABLEon 08-12-19 24 BKR CIRBC [id number] Normal [facility] Comment on above: Result Comment: Test ing performed by [address] [place] [address] Performed By: #### H LAB #### [facility] (DEFAULT) [address] [place] [address] 91017 Chagas Antibody (T. cruzi) Negative Normal [facility] Comment on above: Result Comment: Test ing performed by [address] [place] [address] Performed By: #### H LAB #### [facility] (DEFAULT) [address] [place] [address] 46483 HBV CARY (IDT) Negative Normal [facility] Comment on above: Result Comment: Test ing performed by [address] [place] [address] Performed By: #### H LAB #### [facility] (DEFAULT) [address] [address] HCV CARY (IDT) Negative Normal [facility] Comment on above: Result Comment: Test ing performed by [address] [place] [address] Performed By: #### H LAB #### [facility] (DEFAULT) [address] [address] Hepatitis B Core Antibody Negative Normal [facility] Comment on above: Result Comment: Test ing performed by [address] [place] [address] Performed By: #### H LAB #### [facility] (DEFAULT) [address] [address] Hepatitis B Surface Antigen Negative Normal [facility] Comment on above: Result Comment: Test ing performed by [address] [place] [address] Performed By: #### H LAB #### [facility] (DEFAULT) [address] [address] Hepatitis C Virus Antibody Negative [facility] Comment on above: Result Comment: Test ing performed by [address] [place] [address] Performed By: #### H LAB #### [facility] (DEFAULT) [address] [place] [address] 26377 HIV CARY (IDT) Negative [facility] Comment on above: Result Comment: Test ing performed by [address] [place] [address] Performed By: #### H LAB #### [facility] (DEFAULT) [address] [address] HIV-1/2/O Antibody Negative Normal [facility] Comment on above: Result Comment: Test ing performed by [address] [place] [address] Performed By: #### H LAB #### [facility] (DEFAULT) [address] [place] [address] 17397 West Nile Virus CARY (IDT) Negative Normal [facility] Comment on above: Result Comment: Test ing performed by [address] [place] [address] Performed By: #### H LAB #### [facility] (DEFAULT) [address] [place] [address] 16081 EBV VCA IGG ABon 08-12-2023 EBV VCA IgG Antibody Positive Abnormal Negative [facility] Comment on above: Performed By: #### P TPTT #### [facility] (DEFAULT) [address] [place] [address] 15982 MAGNESIUMon 08-12-2023 Magnesium [Mass/Vol] 1.8 mg/dL Normal 1.6-2.6 [facility] Comment on above: Performed By: #### C A, MGO, CHM7, IPB #### [facility] (DEFAULT) [address] [place] [address] 60839 PHOSPHATE, INORGANICon 08-11 Phosphorous 2.7 mg/dL Normal 2.2-4.6 [facility] Comment on above: Performed By: #### P TPTT #### [facility] (DEFAULT) [address] [place] [address] 37458 PT,INR,PTTon 08-12-2023 aPTT Coag (Bld) [Time] 26.0 s Normal 24.0-34.3 [facility] Comment on above: Performed By: #### H LAB #### [facility] (DEFAULT) [address] [place] [address] 92247 INR Coag (PPP) [Relative time] 1.0 {INR} Normal 0.9-1.1 [facility] Comment on above: Performed By: #### H LAB #### [facility] (DEFAULT) [address] [place] [address] 17147 PT Coag (PPP) [Time] 13.2 s Normal 11.9-14.2 [facility] Comment on above: Performed By: #### H LAB #### [facility] (DEFAULT) [address] [place] [address] 89238 RPR (CIB)on 08-12-2023 Syphillis (PK-TP) Negative Normal [facility] Comment on above: Result Comment: [id number] Testing performed by [facility] [address] [place] [address] Performed By: #### H LAB #### [facility] (DEFAULT) [address] [id number] TYPE AND SCREEN - PREADMISSI ONon 08-12-2023 ABO/RH(D) TYPE Positive Normal [facility] Comment on above: Performed By: #### P TPTT #### [facility] (DEFAULT) [address] [place] [phone] URINALYSIS REFLEX TO CULTURE PERFORMABLEon 08-12-2023 Appearance (U) Clear Normal Clear [facility] Comment on above: Performed By: #### C ANDIDA AURIS SCREEN BY PCR #### [facility] (DEFAULT) [address] [address] Bacteria ABSENT Normal ABSENT [facility] Comment on above: Performed By: #### C ANDIDA AURIS SCREEN BY PCR #### [facility] (DEFAULT) [address] [place] [address] Blood Urine Negative Normal Negative [facility] Comment on above: Performed By: #### C ANDIDA AURIS SCREEN BY PCR #### [facility] (DEFAULT) [address] [address] Color (U) Yellow Normal Yellow [facility] Comment on above: Performed By: #### C ANDIDA AURIS SCREEN BY PCR #### [facility] (DEFAULT) [address] [place] [address] Glucose Ql (U) Negative Normal Negative [facility] Comment on above: Performed By: #### C ANDIDA AURIS SCREEN BY PCR #### [facility] (DEFAULT) [address] [place] [address] Ketones Ql (U) Negative Normal Negative [facility] Comment on above: Performed By: #### C ANDIDA AURIS SCREEN BY PCR #### [facility] (DEFAULT) [address] [place] [address] Leukocyte esterase Test strip Ql (U) Trace Abnormal Negative [facility] Comment on above: Performed By: #### C ANDIDA AURIS SCREEN BY PCR #### [facility] (DEFAULT) [address] [place] [address] Nitrites Urine Negative Normal Negative [facility] Comment on above: Performed By: #### C ANDIDA AURIS SCREEN BY PCR #### [facility] (DEFAULT) [address] [place] [address] pH (U) 7.0 [pH] Normal 5.0-7.0 [facility] Comment on above: Performed By: #### C ANDIDA AURIS SCREEN BY PCR #### [facility] (DEFAULT) [address] [address] Protein Urine Negative Normal Negative [facility] Comment on above: Performed By: #### C ANDIDA AURIS SCREEN BY PCR #### [facility] (DEFAULT) [address] [place] [address]91 RBC Urine 0-2 Normal 0-2 [facility] Comment on above: Performed By: #### C ANDIDA AURIS SCREEN BY PCR #### [facility] (DEFAULT) [address] [address] Specific [place] Urine 1.007 Normal 1.001-1.035 [facility] Comment on above: Performed By: #### C ANDIDA AURIS SCREEN BY PCR #### [facility] (DEFAULT) [address] [address] Squamous/Epithelial Cells 0-2/hpf Normal 0-2/hpf, 3-5/hpf = 1+ [facility] Comment on above: Performed By: #### C ANDIDA AURIS SCREEN BY PCR #### [facility] (DEFAULT) [address] [place] [address] Urobilinogen Urine 0.2 E.U./dL Normal 0.2 E.U/d L, 1.0 E.U/dL [facility] Comment on above: Performed By: #### C ANDIDA AURIS SCREEN BY PCR #### [facility] (DEFAULT) [address] [place] [address] WBC Urine 0 - 5 Normal 0 - 5 [facility] Comment on above: Performed By: #### C ANDIDA AURIS SCREEN BY PCR #### [facility] (DEFAULT) [address] [address] XR CHEST PA AND LATERAL 2 EWSon 08-12-2023 XR CHEST PA AND LATERAL 2 VIEWS EXAM: XR CHEST PA AND LATERAL 2 VIEWS, 08/12/2023 11:16 AM COMPARISON: Compared to prior study dated June 24, 2023. CLINICAL INDICATIONS: LIVING KIDNEY DONOR EVALUATION RELEVANT CLINICAL HISTORY: Z52.4:Kidney donor FINDINGS: (Adequate technique) Implanted Devices: None Lungs: Clear, without mass, interstitial disease, or consolidation. Pleural Spaces: No pleural effusion. No pneumothorax. Mediastinum and Alia: Normal Cardiac silhouette and great vessels: Normal heart size. Unremarkable aorta. Chest Wall: Normal IMPRESSION: No acute cardiopulmonary disease I personally viewed and interpreted these images and I have reviewed and approved this report. Normal [facility] XR Chest PA and Lateralon IMPRESSION: No acute cardiopulmonary disease I personally viewed and interpreted these images and I have reviewed and approved this report. OLOGY EXAM: XR CHEST PA AN D LATERAL 2 VIEWS, 08/12/2023 11:16 AM COMPARISON: Compared to prior study dated June 24, 2023. CLINICAL INDICATIONS: LIVING KIDNEY DONOR EVALUATION RELEVANT CLINICAL HISTORY: Z52.4:Kidney donor FINDINGS: (Adequate technique) Implanted Devices: None Lungs: Clear, without mass, interstitial disease, or consolidation. Pleural Spaces: No pleural effusion. No pneumothorax. Mediastinum and Alia: Normal Cardiac silhouette and great vessels: Normal heart size. Unremarkable aorta. Chest Wall: Normal RADIOLOGY Sabrina Silvestre M D - 08/12/2023 EXAM: XR CHEST PA AND LATERAL 2 VIEWS, 08/12/2023 11:16 AM COMPARISON: Compared to prior study dated June 24, 2023. CLINICAL INDICATIONS: LIVING KIDNEY DONOR EVALUATION RELEVANT CLINICAL HISTORY: Z52.4:Kidney donor FINDINGS: (Adequate technique) Implanted Devices: None Lungs: Clear, without mass, interstitial disease, or consolidation. Pleural Spaces: No pleural effusion. No pneumothorax. Mediastinum and Alia: Normal Cardiac silhouette and great vessels: Normal heart size. Unremarkable aorta. Chest Wall: Normal IMPRESSION IMPRESSION: No acute cardiopulmonary disease I personally viewed and interpreted these images and I have reviewed and approved this report. [facility] Radiology Study observation (narrative) [facility] XR Chest PA and LateralOrder ed By: Sabrina Silvestre on 08-12-2023 [facility] Work Phone: MR Abdomen WO and W contrast Charlene 06-25-2023 IMPRESSION: 1. Benign hepatic hemangioma in segment 7/8. 2. Stable small arterially enhancing focus in hepatic segment 2/3 which is favored to be benign. It may be a small FNH or a shunt. OLOGY EXAM: MRI ABDOMEN WITH AND WITHOUT CONTRAST, 06/24/2023 18:13 PM CLINICAL INDICATIONS: CT angiogram on 06/10/2023 demonstrated a1.4 cm hepatic lesion, which may represent a hemangioma. - Hepatology f/u MRI requested; Z52.4:Kidney donor Sex: Female, Age: 38 years COMPARISON: CTA dated June 10, 2023 TECHNIQUE: Multiplanar, multisequence MRI scanning was performed of the abdomen before and after the administration of intravenous contrast. CONTRAST: Gadopiclenol SOLN 1-25 mL; Route of Administration: Intravenous; Dose: 6 mL. FINDINGS: Lung Bases: Normal. Liver: Normal size, morphology and signal. Segment 7/8 markedly T2 hyperintense lesion measuring 0.9 cm (series 8 image 8). On postcontrast sequences, this has discontinuous peripheral nodular enhancement with progressive fill-in, consistent with a benign hemangioma. Segment 2/3 arterially enhancing focus measures 1.0 x 0.8 cm, stable. This is not seen on T2 or precontrast T1 images. It fades to background liver on subsequent phases. There are a few tiny cysts. Gallbladder: Normal. Bile Ducts: Normal in caliber. Spleen: Normal. Pancreas: Normal. Adrenals: Normal. Right Kidney: Normal aside from a tiny interpolar simple cyst. No hydronephrosis. Left Kidney: There are couple of tiny superior pole simple cysts. No hydronephrosis. Gastrointestinal: No bowel dilation or wall thickening. Lymph nodes: No enlarged or morphologically abnormal lymph nodes. Peritoneum/retroperit oneum: No ascites. Vasculature: The abdominal aorta is normal in course and caliber. Patent celiac and superior mesenteric arteries. Patent portal, splenic, and superior mesenteric veins. Body Wall: Normal. Bones: Benign hemangiomas. No aggressive lesion RADIOLOGY Blanka Mcgraw MD - 06/25/2023 EXAM: MRI ABDOMEN WITH AND WITHOUT CONTRAST, 06/24/2023 18:13 PM CLINICAL INDICATIONS: CT angiogram on 06/10/2023 demonstrated a1.4 cm hepatic lesion, which may represent a hemangioma. - Hepatology f/u MRI requested; Z52.4:Kidney donor Sex: Female, Age: 38 years COMPARISON: CTA dated June 10, 2023 TECHNIQUE: Multiplanar, multisequence MRI scanning was performed of the abdomen before and after the administration of intravenous contrast. CONTRAST: Gadopiclenol SOLN 1-25 mL; Route of Administration: Intravenous; Dose: 6 mL. FINDINGS: Lung Bases: Normal. Liver: Normal size, morphology and signal. Segment 7/8 markedly T2 hyperintense lesion measuring 0.9 cm (series 8 image 8). On postcontrast sequences, this has discontinuous peripheral nodular enhancement with progressive fill-in, consistent with a benign hemangioma. Segment 2/3 arterially enhancing focus measures 1.0 x 0.8 cm, stable. This is not seen on T2 or precontrast T1 images. It fades to background liver on subsequent phases. There are a few tiny cysts. Gallbladder: Normal. Bile Ducts: Normal in caliber. Spleen: Normal. Pancreas: Normal. Adrenals: Normal. Right Kidney: Normal aside from a tiny interpolar simple cyst. No hydronephrosis. Left Kidney: There are couple of tiny superior pole simple cysts. No hydronephrosis. Gastrointestinal: No bowel dilation or wall thickening. Lymph nodes: No enlarged or morphologically abnormal lymph nodes. Peritoneum/retroperit oneum: No ascites. Vasculature: The abdominal aorta is normal in course and caliber. Patent celiac and superior mesenteric arteries. Patent portal, splenic, and superior mesenteric veins. Body Wall: Normal. Bones: Benign hemangiomas. No aggressive lesion IMPRESSION IMPRESSION: 1. Benign hepatic hemangioma in segment 7/8. 2. Stable small arterially enhancing focus in hepatic segment 2/3 which is favored to be benign. It may be a small FNH or a shunt. [facility] MR Abdomen WO and W contrast IVOrdered By: Blanka Mcgraw on 06-25-2023 [facility] Work Phone: MRI ABDOMEN WITH AND WITHOUT CONTRASTon 06-25-2023 MRI ABDOMEN WITH AND WITHOUT CONTRAST EXAM: MRI ABDOMEN WITH AND WITHOUT CONTRAST, 06/24/2023 18:13 PM CLINICAL INDICATIONS: CT angiogram on 06/10/2023 demonstrated a1.4 cm hepatic lesion, which may represent a hemangioma. - Hepatology f/u MRI requested; Z52.4:Kidney donor Sex: Female, Age: 38 years COMPARISON: CTA dated June 10, 2023 TECHNIQUE: Multiplanar, multisequence MRI scanning was performed of the abdomen before and after the administration of intravenous contrast. CONTRAST: Gadopiclenol SOLN 1-25 mL; Route of Administration: Intravenous; Dose: 6 mL. FINDINGS: Lung Bases: Normal. Liver: Normal size, morphology and signal. Segment 7/8 markedly T2 hyperintense lesion measuring 0.9 cm (series 8 image 8). On postcontrast sequences, this has discontinuous peripheral nodular enhancement with progressive fill-in, consistent with a benign hemangioma. Segment 2/3 arterially enhancing focus measures 1.0 x 0.8 cm, stable. This is not seen on T2 or precontrast T1 images. It fades to background liver on subsequent phases. There are a few tiny cysts. Gallbladder: Normal. Bile Ducts: Normal in caliber. Spleen: Normal. Pancreas: Normal. Adrenals: Normal. Right Kidney: Normal aside from a tiny interpolar simple cyst. No hydronephrosis. Left Kidney: There are couple of tiny superior pole simple cysts. No hydronephrosis. Gastrointestinal: No bowel dilation or wall thickening. Lymph nodes: No enlarged or morphologically abnormal lymph nodes. Peritoneum/retroperit oneum: No ascites. Vasculature: The abdominal aorta is normal in course and caliber. Patent celiac and superior mesenteric arteries. Patent portal, splenic, and superior mesenteric veins. Body Wall: Normal. Bones: Benign hemangiomas. No aggressive lesion IMPRESSION: 1. Benign hepatic hemangioma in segment 7/8. 2. Stable small arterially enhancing focus in hepatic segment 2/3 which is favored to be benign. It may be a small FNH or a shunt. Normal [facility] AFP TUMOR MARKERon 4 AFP Tumor Marker <2.2 Normal <8.1 [facility] Comment on above: Result Comment: This test was performed on the [employer] IM Immunoassay platform by [employer] which is a two-site sandwich chemiluminescent immunoassay. It is important to note that assays using different manufacturers and/or methods may not be comparable. Performed By: #### A FPTMR #### [facility] (DEFAULT) [address] [place] [address] CA 19-9on 06-24-2023 CA 19-9 <15.00 Normal <=37.00 [facility] Comment on above: Result Comment: This test was performed on the Siemens Atellica IM Immunoassay platform which is a 2-step sandwich chemiluminescent immunoassay. It is important to note that assays using different manufacturers and/or methods may not be comparable. Performed By: #### C ANDIDA AURIS SCREEN BY PCR #### [facility] (DEFAULT) [address] [place] [address] MR Abdomen WO and W contrast Charlene 06-24-2023 [facility]) [facility] LATERAL 2 EWSon 06-24-2023 XR CHEST PA AND LATERAL 2 VIEWS EXAM: XR CHEST PA AND LATERAL 2 VIEWS, 06/24/2023 15:28 PM COMPARISON: No prior studies available for comparison. CLINICAL INDICATIONS: Living Kidney Donor Evaluation RELEVANT CLINICAL HISTORY: Z52.4:Kidney donor Living Kidney Donor Evaluation; FINDINGS: (Adequate technique) Implanted Devices: None Lungs: Clear, without mass, interstitial disease, or consolidation. Pleural Spaces: No pleural effusion. No pneumothorax. Mediastinum and Alia: Normal Cardiac silhouette and great vessels: Normal heart size. Unremarkable aorta. Chest Wall: Normal IMPRESSION: No acute cardiopulmonary disease Normal [facility] XR Chest PA and Lateralon IMPRESSION: No acute cardiopulmonary disease OLOGY EXAM: XR CHEST PA AN D LATERAL 2 VIEWS, 06/24/2023 15:28 PM COMPARISON: No prior studies available for comparison. CLINICAL INDICATIONS: Living Kidney Donor Evaluation RELEVANT CLINICAL HISTORY: Z52.4:Kidney donor Living Kidney Donor Evaluation; FINDINGS: (Adequate technique) Implanted Devices: None Lungs: Clear, without mass, interstitial disease, or consolidation. Pleural Spaces: No pleural effusion. No pneumothorax. Mediastinum and Alia: Normal Cardiac silhouette and great vessels: Normal heart size. Unremarkable aorta. Chest Wall: Normal RADIOLOGY Sabrina Silvestre M D - 06/24/2023 EXAM: XR CHEST PA AND LATERAL 2 VIEWS, 06/24/2023 15:28 PM COMPARISON: No prior studies available for comparison. CLINICAL INDICATIONS: Living Kidney Donor Evaluation RELEVANT CLINICAL HISTORY: Z52.4:Kidney donor Living Kidney Donor Evaluation; FINDINGS: (Adequate technique) Implanted Devices: None Lungs: Clear, without mass, interstitial disease, or consolidation. Pleural Spaces: No pleural effusion. No pneumothorax. Mediastinum and Alia: Normal Cardiac silhouette and great vessels: Normal heart size. Unremarkable aorta. Chest Wall: Normal IMPRESSION IMPRESSION: No acute cardiopulmonary disease [facility]narrative) [facility] and LateralOrder ed By: Sabrina Silvestre on 06-24-2023 [facility] Work Phone: HLA TYPING (SOLID ORGAN)on 0 06-14-2023 BW 4,6 [facility] DPA1* 01:03 [facility] DPA11 - [facility] DPB1* DPB11 04:01 [facility] DPB1*DPB1A 02:01 [facility] DQA1* 01:02 [facility] DQA1*DQA11 03:01 [facility] DQB1 8,6 [facility] DQB1* 03:02 [facility] DQB1* - DQB11 06:[address] [facility] [address] 4,[address] [facility] [address]51,52,53 53,51 [facility] DRB1* 04:01 [facility] DRB1* - DRB11 15:01 [facility] DRB4* 01:03 [facility] DRB5* 01:01 [facility] HLA A* 02:01 [facility] HLA A* - HLAAA 31:01 [facility] HLA B* 13:02 [facility] HLA B* - HLABBB 15:01 [facility] HLA C* 03:03 [facility] HLA C* - HLACC 06:02 [facility] HLA INTERPRETATION LISTED AMBIGUITIES ARE NOT EXCLUDED: DPB1*1315:01 DPB1*1321:03/1321:01/ 1436:03/1443:01Q [facility] Comment on above: Testing performed by NGS (next-generation sequencing) and/or SSOP (sequence-specific oligonucleotide probe methodology). Additional testing may be performed by real-time PCR (qPCR).Some of the reagents used for testing in the Clinical Histocompatibility Laboratory have yet to be approved by the FDA. Our certification by CLIA to perform high complexity tests allows us to use these reagents in the context of a stringent QC program, and obviates the need for FDA approval.Testing performed by the [facility] Clinical Histocompatibility Laboratory. [facility] number: [id number]. CLIA number: [id number], Director: Jamal Jim, PhD, F([facility]). HLA-A High resolution Nom (Bld/Tiss) 2,31 [facility] HLA-B SBT High resolution Nom (Bld/Tiss) 13,62 [facility] HLA-C SBT High resolution Nom (Bld/Tiss) 9,6 [facility] CA 125on 06-12-2023 Cancer Ag 125 Qn 17 [arb'U]/mL NINF - 30 U/mL [facility] Comment on above: This test was perfor med on the Siemens [employer] IM Immunoassay platform which is a 2-step sandwich chemiluminescent immunoassay. It is important to note that assays using different manufacturers and/or methods may not be comparable. Interpretation and review of laboratory results Normal [facility] CEAon 06-12-2023 Carcinoembryonic Ag [Mass/Vol] ng/mL NINF - 5.0 ng/mL [facility] Comment on above: This test was perfor med on the Siemens [employer] IM Immunoassay platform which is a 2-step sandwich chemiluminescent immunoassay. It is important to note that assays using different manufacturers and/or methods may not be comparable. Interpretation and review of laboratory results Normal [facility] OXALATE, 24HR URINEon 2023 Collection duration (U) 24 h O [facility] Oxalate (24H U) [Mass/Time] 27.3 [facility] Oxalate (24H U) [Moles/Time] 0.31 [facility] Comment on above: ADDITIONAL INFORMATION This test has been modified from the engineering supplies sales's instructions. Its performance characteristics were determined by [facility] in a manner consistent with CLIA requirements. This test has not been cleared or approved by the U.S. Food and Drug Administration. Specimen volume (24H U) 4.387 L O [facility] Comment on above: Test Performed by: [address] [address] Hair Dresser: Brennan Cummings M.D. Ph.D.; CLIA# [id number] [facility] CT ANGIO LIVING KIDNEY DONOR on 06-11-2023 CT ANGIO LIVING KIDNEY DONOR EXAM: CT ANGIO LIVING KIDNEY DONOR (CTA of the Abdomen), 06/10/2023 11:35 AM CLINICAL INDICATIONS: Living Kidney Donor Evaluation; RELEVANT CLINICAL HISTORY: Z52.4:Kidney donor CONTRAST: iohexol (OMNIPAQUE) 350 MG/ML injection 1-171 mL; Route of Administration: Intravenous; Dose: 80 mL. COMPARISON: No prior studies available for comparison. TECHNIQUE: Submillimeter contiguous axial sections were taken from the dome of the diaphragm to the mid-iliac region during and following intravenous injection of contrast. Both arterial and venous phases were obtained. Delayed imaging was also performed to the proximal femur to depict the renal collection systems and ureters. Oral contrast was not used so as to optimize the visualization of the vasculature. Additional multiplanar and 3D reconstructions were provided. FINDINGS: Left Kidney: Normal cortical enhancement. Subcentimeter hypodensities are too small to characterize, but are likely cysts. No hydronephrosis or renal calculi. Number of ureters: 1 The kidney measures approximately 104 x 61 x 47 mm. Volumetrically it measures 145 cm^3. Left Renal Artery: Underlying renal artery disease: None Number of renal arteries: 1 Percentage of kidney supplied by renal artery(ies): 100% Diameter of main renal artery origin: 6.9 x 5.2 mm Distance from the main renal artery aortic origin to its first branching point is 15 mm. First arterial branching point is located approximately 23 mm from the renal hilum. Left Renal Vein: Number of renal veins: 1 Location of renal vein(s): Anatomical Right Kidney: Normal cortical enhancement. Subcentimeter hypodensities are too small to characterize, but are likely cysts. No hydronephrosis or renal calculi. Number of ureters: 1 The kidney measures approximately 105 x 54 x 41 mm. Volumetrically it measures 145 cm^3. Right Renal Artery: Underlying renal artery disease: None Number of renal arteries: 1 Percentage of kidney supplied by renal artery(ies): 100% Diameter of main renal artery origin: 6.9 x 5.2 mm Distance from the main renal artery origin to its first branching point is 35 mm. First arterial branching point is located approximately 15 mm from the renal hilum. First arterial branching point is located approximately 3.3 mm from the lateral edge of the IVC. Right Renal Vein: Number of renal veins: 1 Location of renal vein(s): Anatomical Lung Bases: Punctate subpleural pulmonary nodule in the right lung base on image 3, series 19 is likely of doubtful clinical significance. Liver: There is a right hepatic lobe 1.4 cm hypodense lesion with nodular peripheral enhancement on image 31, series 19. Suspected cholelithiasis, without evidence for acute cholecystitis. Spleen: Unremarkable. Additional findings: The remaining visualized soft tissues are unremarkable. IMPRESSION: 1. Patent bilateral renal vasculature as described within the body of the report. 2. Normal bilateral renal cortical enhancement. Subcentimeter hypodensities are too small to characterize, but are likely cysts. No hydronephrosis or renal calculi. 3. Right hepatic lobe 1.4 cm hypodense lesion with nodular peripheral enhancement is incompletely evaluated although a hemangioma is on the differential. 4. Ancillary findings as described above. Normal [facility] DLIDON PERFOMABLEon 06-11-19 24 BKR [facility] [id number] [facility] Comment on above: Testing performed by [facility] [address] [place] [address] [place] Antibody (T. cruzi) Negative [facility] Comment on above: Testing performed by [facility] [address] [place] [place] [address] HBV CARY (IDT) Negative [facility] Comment on above: Testing performed by [address] [place] [address] HCV CARY (IDT) Negative [facility] Comment on above: Testing performed by [address] [place] [address] Hepatitis B Core Antibody Negative [facility] Comment on above: Testing performed by [address] [place] [address] Hepatitis B Surface Antigen Negative [facility] Comment on above: Testing performed by [address] [place] [address] Hepatitis C Virus Antibody Negative [facility] Comment on above: Testing performed by [address] [place] [address] HIV CARY (IDT) Negative [facility] Comment on above: Testing performed by [address] [place] [address] HIV-1/2/O Antibody Negative [facility] Comment on above: Testing performed by [address] [place] [address] West Nile Virus CARY (IDT) Negative [facility] Comment on above: Testing performed by [address] [place] [address] [facility] Laboratory - Chemistry and C hemistry - challengeon 06-11-2023 Citrate (24H U) [Mass/Time] 439 [facility] Comment on above: ADDITIONAL INFORMATION This test was developed and its performance characteristics determined by [facility] in a manner consistent with CLIA requirements. This test has not been cleared or approved by the U.S. Food and Drug Administration. Laboratory - Specimen inform ationon 06-11-2023 Collection duration (U) 24 h O [facility] Specimen volume (24H U) 4.387 L O [facility] Comment on above: Test Performed by: [facility] - [address] [address] Hair Dresser: Brennan Cummings M.D. Ph.D.; CLIA# [id number] No Panel Informationon 06-10 [facility] No Panel InformationOrdered By: Judie Reeves on 06-11-2023 CMV Antibody (total IgG/IgM) Negative [facility] Comment on above: [id number] Testing performed by [address] [place] [address] [facility] RPR (CIBC)on 06-11-2023 Syphillis (PK-TP) Negative [facility] Comment on above: [id number] Testing performed by [address] [place] [address] [facility] ABO/RH(D) TYPINGon ABO/RH(D) TYPE Positive Normal [facility] Comment on above: Performed By: #### A COLBY #### [facility] (DEFAULT) [address] [place] [address] BASIC METABOLIC PANELon Anion gap [Moles/Vol] 15 mmol/L Normal 7-17 [facility] Comment on above: Performed By: #### A COLBY #### [facility] (DEFAULT) [address] [place] [address]223 Calcium [Mass/Vol] 9.6 mg/dL Normal 8.6-10.5 [facility] Comment on above: Performed By: #### A COLBY #### [facility] (DEFAULT) [address] [place] [address] 43891 Chloride [Moles/Vol] 101 mmol/L Normal 98-108 [facility] Comment on above: Performed By: #### A COLBY #### [facility] (DEFAULT) [address] [place] [address] CO2 [Moles/Vol] 26 mmol/L Normal 21-31 [facility] Comment on above: Performed By: #### A COLBY #### [facility] (DEFAULT) [address] [place] [address] Creatinine [Mass/Vol] 0.65 mg/dL Normal 0.50-1.20 [facility] Comment on above: Performed By: #### A COLBY #### [facility] (DEFAULT) [address] [place] [address] Performed By: #### C ROBIN WHITTEN SCREEN BY PCR #### [facility] (DEFAULT) [address] [place] [address] 08928 eGFR, CKD-EPI, Female > Normal >=60 [facility] Comment on above: Result Comment: Repo rted eGFR is based on the CKD-EPI 2020 equation using creatinine, age, and sex. Performed By: #### A COLBY #### [facility] (DEFAULT) [address] [place] [address] 88526 Glucose [Mass/Vol] 85 mg/dL Normal 70-99 [facility] Comment on above: Performed By: #### A COLBY #### [facility] (DEFAULT) [address] [place] [address] 42867 Osmolality [Osmolality] 288 mosm/kg Normal 278-305 [facility] Comment on above: Performed By: #### A COLBY #### [facility] (DEFAULT) [address] [place] [address] 95955 Potassium [Moles/Vol] 3.6 mmol/L Normal 3.5-5.0 [facility] Comment on above: Performed By: #### A COLBY #### [facility] (DEFAULT) [address] [place] [address] 45145 Sodium [Moles/Vol] 138 mmol/L Normal 135-145 [facility] Comment on above: Performed By: #### A COLBY #### [facility] (DEFAULT) [address] [place] [address] 65321 Urea nitrogen [Mass/Vol] 15 mg/dL Normal 7-25 [facility] Comment on above: Performed By: #### A COLBY #### [facility] (DEFAULT) [address] [address] Urea nitrogen/Creatinine [Mass ratio] 23 mg/mg Normal [facility] Comment on above: Performed By: #### A COLBY #### [facility] (DEFAULT) [address] [place] [address] 57526 BETA HCG, QUANT, BLOODon HCG (Quant) Serum 3.9 mIU/mL Normal [facility] Comment on above: Result Comment: Non- : <10 mIU/mL Postmenopause: <10 mIU/mL Male: <10 mIU/mL FEMALE GESTATIONAL AGE 2-4 Weeks: 39.1-8,388 mIU/mL 5-6 Weeks: 861-88,769 mIU/mL 6-8 Weeks: 8,636-218,085 mIU/mL 8-10 Weeks: 18,700-244,467 mIU/mL 10-12 Weeks: 23,143-181,899 mIU/mL 13-27 Weeks: 6,303-97,171 mIU/mL 24-40 Weeks: 4,360-74,883 mIU/mL Test results cannot be interpreted as absolute evidence for the presence or absence of malignant disease. Performed By: #### P TPTT #### [facility] (DEFAULT) [address] [address] [place] 125on 06-10-2023 CA-125 17 U/mL Normal <=30 [facility] Comment on above: Result Comment: This test was performed on the [employer] IM Immunoassay platform which is a 2-step sandwich chemiluminescent immunoassay. It is important to note that assays using different manufacturers and/or methods may not be comparable. Performed By: #### P TPTT #### [facility] (DEFAULT) [address] [place] [address] CALCIUM, URINE 24HRon 2023 Urine Calcium 5.3 mg/dL Normal [facility] Comment on above: Performed By: #### U RIN #### [facility] (DEFAULT) [address] [place] [address] Urine Calcium 24 Hr 232.5 mg/24 hrs Normal 100.0-300.0 [facility] Comment on above: Performed By: #### U RIN #### [facility] (DEFAULT) [address] [place] [address] CBC AND ELECTRONIC DIFFon Basophils (Bld) [#/Vol] 0.07 10*3/uL 0.00 - 0.15 K/uL [facility] Basophils/100 WBC (Bld) 0.8 % [facility] Differential cell count method Nom (Bld) Electronic Differential [facility] Eosinophils (Bld) [#/Vol] K/uL 0.00 - 0.42 K/uL [facility] Eosinophils/100 WBC (Bld) 0.0 % [facility] Erythrocyte distribution width (RBC) [Ratio] 12.2 % 10.8 - 14.9 % [facility] Hematocrit (Bld) [Volume fraction] 47.4 % High 34.9 - 44.3 % [facility] Hemoglobin (Bld) [Mass/Vol] 15.3 g/dL High 11.4 - 15.2 g/dL [facility] Immature granulocytes (Bld) [#/Vol] 0.05 10*3/uL NINF - 0.08 K/uL [facility] Immature granulocytes/100 WBC (Bld) 0.6 % [facility] Interpretation and review of laboratory results Abnormal [facility] Lymphocytes (Bld) [#/Vol] 1.96 10*3/uL 1.16 - 3.51 K/uL [facility] Lymphocytes/100 WBC (Bld) 21.9 % [facility] MCH (RBC) [Entitic mass] 28.8 pg 25.9 - 33.9 pg [facility] MCHC (RBC) [Mass/Vol] 32.3 g/dL 31.4 - 35.9 g/dL [facility] MCV (RBC) [Entitic vol] 89.3 fL 79.6 - 97.7 fL [facility] Monocytes (Bld) [#/Vol] 0.49 10*3/uL 0.22 - 0.87 K/uL [facility] Monocytes/100 WBC (Bld) 5.5 % [facility] Neutrophils (Bld) [#/Vol] 6.39 10*3/uL 1.64 - 7.28 K/uL [facility] Nucleated RBC/100 WBC (Bld) [Ratio] 0.0 % [facility] Platelet mean volume (Bld) [Entitic vol] 9.1 fL 8.5 - 12.2 fL [facility] Platelets (Bld) [#/Vol] 439 10*3/uL High 150 - 393 K/uL [facility] RBC (Bld) [#/Vol] 5.31 10*6/uL High [facility] Segmented neutrophils/100 WBC (Bld) 71.2 % [facility] WBC (Bld) [#/Vol] 8.96 10*3/uL 3.99 - 11. 19 K/uL [facility] Abs Eos Auto < Normal 0.00-0.42 [facility] Comment on above: Performed By: #### H LAB #### [facility] (DEFAULT) [address] [address] Basophils (Bld) [#/Vol] 0.07 10*3/uL Normal 0.00-0.15 [facility] Comment on above: Performed By: #### H LAB #### [facility] (DEFAULT) [address] [place] [address]94 Basophils/100 WBC (Bld) 0.8 % Normal [facility] Comment on above: Performed By: #### H LAB #### [facility] (DEFAULT) [address] [address] DIFF STATUS Electronic Differential Normal [facility] Comment on above: Performed By: #### H LAB #### [facility] (DEFAULT) [address] [address] Eosinophils/100 WBC (Bld) 0.0 % Normal [facility] Comment on above: Performed By: #### H LAB #### [facility] (DEFAULT) [address] [address] Hematocrit (Bld) [Volume fraction] 47.4 % High 34.9-44.3 [facility] Comment on above: Performed By: #### H LAB #### [facility] (DEFAULT) [address] [address] Hemoglobin (Bld) [Mass/Vol] 15.3 g/dL High 11.4-15.2 [facility] Comment on above: Performed By: #### H LAB #### [facility] (DEFAULT) [address] [address] Immature Grans % 0.6 % Normal [facility] Comment on above: Performed By: #### H LAB #### [facility] (DEFAULT) [address] [address] Immature Grans Absolute 0.05 K/uL Normal <=0.08 [facility] Comment on above: Performed By: #### H LAB #### [facility] (DEFAULT) [address] [address] Lymphocytes (Bld) [#/Vol] 1.96 10*3/uL Normal 1.16-3.51 [facility] Comment on above: Performed By: #### H LAB #### [facility] (DEFAULT) [address] [address] Lymphocytes/100 WBC (Bld) 21.9 % Normal [facility] Comment on above: Performed By: #### H LAB #### [facility] (DEFAULT) [address] [address] MCV (RBC) [Entitic vol] 89.3 fL Normal 79.6-97.7 [facility] Comment on above: Performed By: #### H LAB #### [facility] (DEFAULT) [address] [address] Mean Cell Hgb 28.8 pg Normal 25.9-33.9 [facility] Comment on above: Performed By: #### H LAB #### [facility] (DEFAULT) [address] [address] Mean Cell Hgb Conc 32.3 g/dL Normal 31.4-35.9 [facility] Comment on above: Performed By: #### H LAB #### [facility] (DEFAULT) [address] [address] Monocytes (Bld) [#/Vol] 0.49 10*3/uL Normal 0.22-0.87 [facility] Comment on above: Performed By: #### H LAB #### [facility] (DEFAULT) [address] [address] Monocytes/100 WBC (Bld) 5.5 % Normal [facility] Comment on above: Performed By: #### H LAB #### [facility] (DEFAULT) [address] [address] Nucleated RBC 0.0 /100 WBC Normal <=0.2 [facility] Comment on above: Performed By: #### H LAB #### [facility] (DEFAULT) [address] [address] Platelet mean volume (Bld) [Entitic vol] 9.1 fL Normal 8.5-12.2 [facility] Comment on above: Performed By: #### H LAB #### [facility] (DEFAULT) [address] [address] Platelets (Bld) [#/Vol] 439 10*3/uL High 150-393 [facility] Comment on above: Performed By: #### H LAB #### [facility] (DEFAULT) [address] [place] [address] RBC (Bld) [#/Vol] 5.31 10*6/uL High 3.91-5.04 [facility] Comment on above: Performed By: #### H LAB #### [facility] (DEFAULT) [address] [address] RBC Distribution 12.2 % Normal 10.8-14.9 [facility] Comment on above: Performed By: #### H LAB #### [facility] (DEFAULT) [address] [address] Segs + Bands Auto 71.2 % Normal [facility] Comment on above: Performed By: #### H LAB #### [facility] (DEFAULT) [address] [address] Segs + Bands,Absolute Auto 6.39 K/uL Normal 1.64-7.28 [facility] Comment on above: Performed By: #### H LAB #### [facility] (DEFAULT) [address] [address] WBC (Bld) [#/Vol] 8.96 10*3/uL Normal 3.99-11.19 [facility] Comment on above: Performed By: #### H LAB #### [facility] (DEFAULT) [address] [address] CEAon 06-10-2023 Cea <2.0 Normal <=5.0 [facility] Comment on above: Result Comment: This test was performed on the [employer] IM Immunoassay platform which is a 2-step sandwich chemiluminescent immunoassay. It is important to note that assays using different manufacturers and/or methods may not be comparable. Performed By: #### P TPTT #### [facility] (DEFAULT) [address] [address] CITRATE URINE 24 HOURon 04-0 CITRATE, URINE 24 HOUR 439 mg/24 h Normal 264-1191 [facility] Comment on above: Result Comment: ADDITIONAL INFORMATION This test was developed and its performance characteristics determined by [facility] in a manner consistent with CLIA requirements. This test has not been cleared or approved by the U.S. Food and Drug Administration. Performed By: #### U RIN #### [facility] (DEFAULT) [address] [address] INTERVAL: 24 h Normal [facility] Comment on above: Performed By: #### U RIN #### [facility] (DEFAULT) [address] [address] VOLUME: 4387 mL Normal [facility] Comment on above: Result Comment: Test Performed by: [place] [address] Hair Dresser: Brennan Cummings M.D. Ph.D.; CLIA# [id number] Performed By: #### U RIN #### [facility] (DEFAULT) [address] [address] CMV IGG/IGM TOTAL - CIBCon 0 06-10-2023 CMV Antibody (total IgG/IgM) Negative Normal [facility] Comment on above: Result Comment: [id number] Testing performed by [facility] Blood [place] [id number] [facility] [address] Performed By: #### A COLBY #### [facility] (DEFAULT) [address] [address] CREATININE, 24 HR URINEon Creatinine (U) [Mass/Vol] 34.14 mg/dL Normal [facility] Comment on above: Performed By: #### U RIN #### [facility] (DEFAULT) [address] [address] Creatinine Urine 24 Hr 1.50 g/24 hrs Normal 0.60-1.80 [facility] Comment on above: Performed By: #### U RIN #### [facility] (DEFAULT) [address] [address] CREATININE,RANDOM URINEon Creatinine (U) [Mass/Vol] 39.32 mg/dL Normal [facility] Comment on above: Order Comment: This test was performed using a real-time PCR assay. This test was developed, and its performance characteristics determined by [facility]. It has not been cleared or approved by the FDA. The laboratory is regulated under CLIA as qualified to perform high-complexity testing. This test is used for clinical purposes. It should not be regarded as investigational or for research. This test was performed using a real-time PCR assay. This test was developed, and its performance characteristics determined by [facility]. It has not been cleared or approved by the FDA. The laboratory is regulated under CLIA as qualified to perform high-complexity testing. This test is used for clinical purposes. It should not be regarded as investigational or for research. Performed By: #### C ANDIDA AURIS SCREEN BY PCR #### [facility] (DEFAULT) [address] [address] CYSTATIN C AND CREATININE WI TH ESTIMATED GFRon 06-10-2023 Cystatin C 0.79 mg/L Normal 0.51-1.05 [facility] Comment on above: Performed By: #### C ANDIDA AURIS SCREEN BY PCR #### [facility] (DEFAULT) [address] [address] EGFR BY CYS C AND CREATININE, FEMALE 115 mL/min/1.73m2 Normal >=60 [facility] Comment on above: Result Comment: Repo rted eGFR is based on the CKD-EPI 2020 equation using cystatin C, creatinine, age, and sex. Performed By: #### C ANDIDA AURIS SCREEN BY PCR #### [facility] (DEFAULT) [address] [address] DLIDON PERFOMABLEon 06-10-19 24 BKR CIRBC [id number] Normal [facility] Comment on above: Result Comment: Test ing performed by [facility] [address] [facility] [place] [address] Performed By: #### P TPTT #### [facility] (DEFAULT) [address] [place] [address] Chagas Antibody (T. cruzi) Negative Normal [facility] Comment on above: Result Comment: Test ing performed by [address] [place] [address] Performed By: #### P TPTT #### [facility] (DEFAULT) [address] [address] HBV CARY (IDT) Negative Normal [facility] Comment on above: Result Comment: Test ing performed by [address] [place] [address] Performed By: #### P TPTT #### [facility] (DEFAULT) [address] [address] HCV CARY (IDT) Negative Normal [facility] Comment on above: Result Comment: Test ing performed by [address] [place] [address] Performed By: #### P TPTT #### [facility] (DEFAULT) [address] [address] Hepatitis B Core Antibody Negative Normal [facility] Comment on above: Result Comment: Test ing performed by [address] [place] [address] Performed By: #### P TPTT #### [facility] (DEFAULT) [address] [address] Hepatitis B Surface Antigen Negative Normal [facility] Comment on above: Result Comment: Test ing performed by [address] [place] [address] Performed By: #### P TPTT #### [facility] (DEFAULT) [address] [address] Hepatitis C Virus Antibody Negative Normal [facility] Comment on above: Result Comment: Test ing performed by [address] [place] [address] Performed By: #### P TPTT #### [facility] (DEFAULT) [address] [place] [address] HIV CARY (IDT) Negative Normal [facility] Comment on above: Result Comment: Test ing performed by [address] [place] [address] Performed By: #### P TPTT #### [facility] (DEFAULT) [address] [place] [address] HIV-1/2/O Antibody Negative Normal [facility] Comment on above: Result Comment: Test ing performed by [address] [place] [address] Performed By: #### P TPTT #### [facility] (DEFAULT) [address] [place] [address] West Nile Virus CARY (IDT) Negative Normal [facility] Comment on above: Result Comment: Test ing performed by [address] [place] [address] Performed By: #### P TPTT #### [facility] (DEFAULT) [address] [place] [address] EBV VCA IGG ABon 06-10-2023 EBV VCA IgG Antibody Positive Abnormal Negative [facility] Comment on above: Performed By: #### H LAB #### [facility] (DEFAULT) [address] [place] [address] GGTon 06-10-2023 Gamma glutamyl transferase [Catalytic activity/Vol] 16 U/L Normal 8-64 [facility] Comment on above: Performed By: #### A BORH #### [facility] (DEFAULT) [address] [place] [address] HCG ( test) Qlon HCG.beta subunit [Moles/Vol] 3.9 mmol/L mIU/mL [facility] Comment on above: Non-: <10 mI U/mL Postmenopause: <10 mIU/mL Male: <10 mIU/mL FEMALE GESTATIONAL AGE 2-4 Weeks: 39.1-8,388 mIU/mL 5-6 Weeks: 861-88,769 mIU/mL 6-8 Weeks: 8,636-218,085 mIU/mL 8-10 Weeks: 18,700-244,467 mIU/mL 10-12 Weeks: 23,143-181,899 mIU/mL 13-27 Weeks: 6,303-97,171 mIU/mL 24-40 Weeks: 4,360-74,883 mIU/mL Test results cannot be interpreted as absolute evidence for the presence or absence of malignant disease. [facility] HEMOGLOBIN A1Con 06-10-2023 Glucose [Mass/Vol] 88 mg/dL Normal [facility] Comment on above: Performed By: #### P TPTT #### [facility] (DEFAULT) [address] [address] Hemoglobin A1C HPLC 4.7 % Normal 4.7-5.6 [facility] Comment on above: Performed By: #### P TPSIMEON #### [facility] (DEFAULT) [address] [address] HEPATIC FUNCTION PANELon Albumin [Mass/Vol] 4.7 g/dL Normal 3.5-5.0 [facility] Comment on above: Performed By: #### A COLBY #### [facility] (DEFAULT) [address] [address] ALP [Catalytic activity/Vol] 50 U/L Normal 32-126 [facility] Comment on above: Performed By: #### A BORPablito #### [facility] (DEFAULT) [address] [address] ALT [Catalytic activity/Vol] 22 U/L Normal 9-48 [facility] Comment on above: Performed By: #### A BORPablito #### [facility] (DEFAULT) [address] [address] AST [Catalytic activity/Vol] 25 U/L Normal 10-39 [facility] Comment on above: Performed By: #### A COLBY #### [facility] (DEFAULT) [address] [place] [address] Bilirubin [Mass/Vol] 0.5 mg/dL Normal <1.5 [facility] Comment on above: Performed By: #### A COLBY #### [facility] (DEFAULT) [address] [place] [address] Bilirubin.indirect [Mass/Vol] 0.1 mg/dL Normal <0.3 [facility] Comment on above: Performed By: #### A COLBY #### [facility] (DEFAULT) [address] [place] [address] Protein [Mass/Vol] 8.2 g/dL Normal 6.4-8.3 [facility] Comment on above: Performed By: #### A COLBY #### [facility] (DEFAULT) [address] [place] [address] HLA TYPING (SOLID ORGAN)on 0 06-10-2023 A 2,31 [facility] Comment on above: Performed By: #### H LAB #### [facility] (DEFAULT) [address] [place] [address] B 13,62 [facility] Comment on above: Performed By: #### H LAB #### [facility] (DEFAULT) [address] [place] [address] BW 4,6 [facility] Comment on above: Performed By: #### H LAB #### [facility] (DEFAULT) [address] [place] [address] C 9,6 [facility] Comment on above: Performed By: #### H LAB #### [facility] (DEFAULT) [address] [address] DPA1* 01:03 [facility] Comment on above: Performed By: #### H LAB #### [facility] (DEFAULT) [address] [place] [address] DPA11 - [facility] Comment on above: Performed By: #### H LAB #### [facility] (DEFAULT) [address] [place] [address] DPB1* DPB11 04:01 [facility] Comment on above: Performed By: #### H LAB #### [facility] (DEFAULT) [address] [place] [address] DPB1*DPB1A 02:01 [facility] Comment on above: Performed By: #### H LAB #### [facility] (DEFAULT) [address] [place] [address] DQA1* 01:02 [facility] Comment on above: Performed By: #### H LAB #### [facility] (DEFAULT) [address] [place] [address] DQA1*DQA11 03:01 [facility] Comment on above: Performed By: #### H LAB #### [facility] (DEFAULT) [address] [place] [address] DQB1 8,6 [facility] Comment on above: Performed By: #### H LAB #### [facility] (DEFAULT) [address] [place] [address] DQB1* 03:02 [facility] Comment on above: Performed By: #### H LAB #### [facility] (DEFAULT) [address] [place] [address] DQB1* - DQB11 06:02 [facility] Comment on above: Performed By: #### H LAB #### [facility] (DEFAULT) [address] [place] [address] 4,15 [facility] Comment on above: Performed By: #### H LAB #### [facility] (DEFAULT) [address] [place] [address] DR51,52,53 53,51 [facility] Comment on above: Performed By: #### H LAB #### [facility] (DEFAULT) [address] [place] [address] DRB1* 04:01 [facility] Comment on above: Performed By: #### H LAB #### [facility] (DEFAULT) [address] [place] [address] DRB1* - DRB11 15:01 [facility] Comment on above: Performed By: #### H LAB #### [facility] (DEFAULT) [address] [place] [address] DRB4* 01:03 [facility] Comment on above: Performed By: #### H LAB #### [facility] (DEFAULT) [address] [place] [address] DRB5* 01:01 [facility] Comment on above: Performed By: #### H LAB #### [facility] (DEFAULT) [address] [place] [address] HLA A* 02:01 [facility] Comment on above: Performed By: #### H LAB #### [facility] (DEFAULT) [address] [place] [address] HLA A* - HLAAA 31:01 [facility] Comment on above: Performed By: #### H LAB #### [facility] (DEFAULT) [address] [place] [address] HLA B* 13:02 [facility] Comment on above: Performed By: #### H LAB #### [facility] (DEFAULT) [address] [place] [address] HLA B* - HLABBB 15:01 [facility] Comment on above: Performed By: #### H LAB #### [facility] (DEFAULT) [address] [place] [address] HLA C* 03:03 [facility] Comment on above: Performed By: #### H LAB #### [facility] (DEFAULT) [address] [address] HLA C* - HLACC 06:02 Normal [facility] Comment on above: Performed By: #### H LAB #### [facility] (DEFAULT) [address] [address] HLA INTERPRETATION Normal [facility] Comment on above: Result Comment: LIST ED AMBIGUITIES ARE NOT EXCLUDED: DPB1*1315:01 DPB1*1321:03/1321:03/1435:03/1443:01Q Testing performed by NGS (next-generation sequencing) and/or SSOP (sequence-specific oligonucleotide probe methodology). Additional testing may be performed by real-time PCR (qPCR).Some of the reagents used for testing in the Clinical Histocompatibility Laboratory have yet to be approved by the FDA. Our certification by CLIA to perform high complexity tests allows us to use these reagents in the context of a stringent QC program, and obviates the need for FDA approval.Testing performed by the [facility] Clinical Histocompatibility Laboratory. [facility] number: [id number]. CLIA number: [id number], Director: Jamal Jim, PhD, F([facility]). Performed By: #### H LAB #### [facility] (DEFAULT) [address] [address] LACTATE DEHYDROGENASEon 04-0 LD Total 178 U/L Normal 100-190 [facility] Comment on above: Performed By: #### A COLBY #### [facility] (DEFAULT) [address] [address] Laboratory - Chemistry and C hemistry - challengeon 06-10-2023 Albumin DL <= 20 mg/L (24H U) [Mass/Time] [facility] Comment on above: Not Calculated Albumin DL <= 20 mg/L (U) [Mass/Vol] mg/L mg/L [facility] Creatinine (24H U) [Mass/Vol] 34.14 mg/dL [facility] Creatinine (24H U) [Mass/Vol] 1.50 [facility] Sodium (24H U) [Moles/Vol] 50 mmol/L [facility] Sodium (24H U) [Moles/Vol] 219 [facility] Calcium (24H U) [Mass/Time] 5.3 mg/dL [facility] Calcium (24H U) [Mass/Time] 232.5 [facility] Urate (24H U) [Mass/Time] 0.8 [facility] Urate (U) [Mass/Vol] 18.9 mg/dL [facility] Creatinine [Mass/Vol] 0.65 mg/dL 0.50 - 1.20 mg/dL [facility] Average glucose Estimated from glycated hemoglobin (Bld) [Mass/Vol] 88 mg/dL [facility] Albumin DL <= 20 mg/L (U) [Mass/Vol] mg/L mg/L [facility] Albumin/Creatinine DL <= 20 mg/L (U) [Ratio] [facility] Comment on above: Not Calculated Creatinine (24H U) [Mass/Vol] 38.96 mg/dL [facility] Creatinine (24H U) [Mass/Vol] 39.32 mg/dL [facility] Albumin [Mass/Vol] 4.7 g/dL 3.5 - 5.0 g/dL [facility] ALP [Catalytic activity/Vol] 50 U/L 32 - 126 U/L [facility] ALT [Catalytic activity/Vol] 22 U/L 9 - 48 U/L [facility] Anion gap [Moles/Vol] 15 mmol/L 7 - 17 mmol/L [facility] AST [Catalytic activity/Vol] 25 U/L 10 - 39 U/L [facility] Bilirubin [Mass/Vol] 0.5 mg/dL NINF - 1.5 mg/dL [facility] Bilirubin.direct [Mass/Vol] 0.1 mg/dL NINF - 0.3 mg/dL [facility] Calcium [Mass/Vol] 9.6 mg/dL 8.6 - 10. 5 mg/dL [facility] Chloride [Moles/Vol] 101 mmol/L 98 - 10 8 mmol/L [facility] CO2 [Moles/Vol] 26 mmol/L 21 - 31 mmol/L [facility] Creatinine [Mass/Vol] 0.65 mg/dL 0.50 - 1.20 mg/dL [facility] Gamma glutamyl transferase [Catalytic activity/Vol] 16 U/L 8 - 64 U/L [facility] Glucose [Mass/Vol] 85 mg/dL 70 - 99 mg/dL [facility] LDH Lactate to pyruvate reaction [Catalytic activity/Vol] 178 U/L 100 - 190 U/L [facility] Magnesium [Mass/Vol] 2.0 mg/dL 1.6 - 2 .6 mg/dL [facility] Osmolality Calc [Osmolality] 288 [facility] Phosphate [Mass/Vol] 3.0 mg/dL 2.2 - 4 .6 mg/dL [facility] Potassium [Moles/Vol] 3.6 mmol/L 3.5 - 5.0 mmol/L [facility] Protein [Mass/Vol] 8.2 g/dL 6.4 - 8.3 g/dL [facility] Sodium [Moles/Vol] 138 mmol/L 135 - 145 mmol/L [facility] Urea nitrogen [Mass/Vol] 15 mg/dL 7 - 25 mg/dL [facility] Urea nitrogen/Creatinine [Mass ratio] 23 mg/mg [facility] Urate [Mass/Vol] 3.4 mg/dL 2.8 - 6.0 mg/dL [facility] pH (U) 7.0 [pH] 5.0 - 7.0 [facility] Specific gravity (U) [Rel density] 1.007 1.001 - 1.035 [facility] Urobilinogen (U) [Mass/Vol] 0.2 E.U./dL 0.2 E.U/dL, 1.0 E.U/dL [facility] Laboratory - Chemistry and C hemistry - challengeOrdered By: Nora Langford on 06-10-2023 Protein (24H U) [Mass/Time] [facility] Comment on above: Not Calculated Laboratory - Coagulationon 0 06-10-2023 aPTT Coag (PPP) [Time] 27.2 s [facility] INR Coag (Bld) [Relative time] 0.9 {INR} 0.9 - 1.1 [facility] PT Coag (PPP) [Time] 12.4 [facility] Laboratory - Fertility testi ngOrdered By: Nora Langford on 06-10-2023 Specimen volume (Deon) 4387 mL [facility] - Fertility testi ngon 06-10-2023 Specimen volume (Deon) 4387 mL [facility] Specimen volume (Deon) 4387 mL [facility] Specimen volume (Deon) 4387 mL [facility] Laboratory - Hematology and Cell countson 06-10-2023 HbA1c (Bld) [Mass fraction] 4.7 % 4.7 - 5.6 % [facility] Laboratory - Microbiology an d Antimicrobial susceptibilityon 06-10-2023 EBV capsid IgG Ql (S) Positive Abnormal Negative [facility] Laboratory - Specimen inform ationOrdered By: Nora Langford on 06-10-2023 Collection interval from baseline (Specimen) [Time] 24 hrs [facility] Laboratory - Specimen inform ationon 06-10-2023 Collection interval from baseline (Specimen) [Time] 24 hrs [facility] Collection interval from baseline (Specimen) [Time] 24 hrs [facility] Collection interval from baseline (Specimen) [Time] 24 hrs [facility] Appearance (U) Clear Clear [facility] Color (U) Yellow Yellow [facility] Laboratory - UrinalysisOrder ed By: Nora Langford on 06-10-2023 Protein Unsp time (U) [Mass/Vol] mg/dL mg/dL [facility] Laboratory - UrinalysisOrder ed By: Pawel Ruffin on 06-10-2023 Protein Unsp time (U) [Mass/Vol] mg/dL mg/dL [facility] Laboratory - Urinalysison Bacteria LM Ql (Urine sed) ABSENT ABSENT U [facility] Epithelial cells.squamous LM Ql (Urine sed) 0-2/hpf 0-2/hpf, 3-5/hpf = 1+ [facility] Glucose Test strip (U) [Mass/Vol] Negative Negative [facility] Ketones (U) [Mass/Vol] Negative Negative OS [facility] Leukocyte esterase Test strip Ql (U) Negative Negative [facility] Nitrite Ql (U) Negative Negative [facility] Protein (U) [Mass/Vol] Negative Negative OS [facility] RBC (U) [#/Vol] Negative Negative [facility] RBC LM.HPF (Urine sed) [#/Area] 0-2 [facility] WBC LM.HPF (Urine sed) [#/Area] 0 - 5 [facility] MAGNESIUMon 06-10-2023 Magnesium [Mass/Vol] 2.0 mg/dL Normal 1.6-2.6 [facility] Comment on above: Performed By: #### A COLBY #### [facility] (DEFAULT) [address] [place] [address] MICROALBUMIN, 24HR URINEon 0 06-10-2023 Albumin DL <= 20 mg/L (U) [Mass/Vol] mg/dL Normal [facility] Comment on above: Performed By: #### U RIN #### [facility] (DEFAULT) [address] [place] [address] Microalbumin 24 HR URINE Normal [facility] Comment on above: Result Comment: Not Calculated Performed By: #### U RIN #### [facility] (DEFAULT) [address] [place] [address] MICROALBUMIN,RANDOM URINEon 06-10-2023 Creatinine (U) [Mass/Vol] 38.96 mg/dL Normal [facility] Comment on above: Performed By: #### U RIN #### [facility] (DEFAULT) [address] [place] [address] Microalbumin/Creatinine Ratio Normal [facility] Comment on above: Result Comment: Not Calculated Performed By: #### U RIN #### [facility] (DEFAULT) [address] [place] [address] No Panel InformationOrdered By: Nora Langford on 06-10-2023 [facility] No Panel Informationon 06-09 [facility] Interpretation and review of laboratory results Abnormal [facility] Cystatin C 0.79 mg/L 0.51 - 1.05 mg/L [facility] EGFR BY CYS C AND CREATININE, FEMALE 115 - PINF [facility] Comment on above: Reported eGFR is bas ed on the CKD-EPI 2020 equation using cystatin C, creatinine, age, and sex. Interpretation and review of laboratory results Normal [facility] ABO/RH(D) TYPE Positive [facility] The reference range has not been established for random urine specimens. The test result should be integrated into the clinical context for interpretation. [facility] eGFR, CKD-EPI, Female - PINF [facility] Comment on above: Reported eGFR is bas ed on the CKD-EPI 2020 equation using creatinine, age, and sex. Interpretation and review of laboratory results Normal [facility] Interpretation and review of laboratory results Normal [facility] Interpretation and review of laboratory results Normal [facility] Interpretation and review of laboratory results Normal [facility] No Panel InformationOrdered By: Pawel Ruffin on 06-10-2023 The reference range has not been established for random urine specimens. The test result should be integrated into the clinical context for interpretation. [facility] OXALATE, 24HR URINEon 2023 Oxalate, Urine 24 Hour 0.31 mmol/24 h Normal 0.11-0.46 [facility] Comment on above: Result Comment: ADDITIONAL INFORMATION This test has been modified from the engineering supplies sales's instructions. Its performance characteristics were determined by [facility] in a manner consistent with CLIA requirements. This test has not been cleared or approved by the U.S. Food and Drug Administration. Performed By: #### U RIN #### [facility] (DEFAULT) [address] [place] [address] OXALATES, URINE 24HR 27.3 mg/24 h Normal 9.7-40.5 [facility] Comment on above: Performed By: #### U RIN #### [facility] (DEFAULT) [address] [place] [address] PHOSPHATE, INORGANICon 06-09 Phosphorous 3.0 mg/dL Normal 2.2-4.6 [facility] Comment on above: Performed By: #### A BORH #### [facility] (DEFAULT) [address] [place] [address] PROTEIN ,RANDOM URINEon 04-0 Protein Ql (U) <4 Normal [facility] Comment on above: Order Comment: This test was performed using a real-time PCR assay. This test was developed, and its performance characteristics determined by The [facility] Laboratory at [facility]. It has not been cleared or approved by the FDA. The laboratory is regulated under CLIA as qualified to perform high-complexity testing. This test is used for clinical purposes. It should not be regarded as investigational or for research. This test was performed using a real-time PCR assay. This test was developed, and its performance characteristics determined by [facility]. It has not been cleared or approved by the FDA. The laboratory is regulated under CLIA as qualified to perform high-complexity testing. This test is used for clinical purposes. It should not be regarded as investigational or for research. Performed By: #### C ANDIDA AURIS SCREEN BY PCR #### [facility] (DEFAULT) [address] [address] Performed By: #### U RIN #### [facility] (DEFAULT) [address] [place] [address] PROTEIN, 24 HR URINEon 06-09 Protein, Urine 24 Hr Normal [facility] Comment on above: Result Comment: Not Calculated Performed By: #### U RIN #### [facility] (DEFAULT) [address] [address] PT,INR,PTTon 06-10-2023 aPTT Coag (Bld) [Time] 27.2 s Normal 24.0-34.3 [facility] Comment on above: Performed By: #### P TPTT #### [facility] (DEFAULT) [address] [address] INR Coag (PPP) [Relative time] 0.9 {INR} Normal 0.9-1.1 [facility] Comment on above: Performed By: #### P TPTT #### [facility] (DEFAULT) [address] [address] PT Coag (PPP) [Time] 12.4 s Normal 11.9-14.2 [facility] Comment on above: Performed By: #### P TPTT #### [facility] (DEFAULT) [address] [address] RPR (CIB)on 06-10-2023 Syphillis (PK-TP) Negative Normal [facility] Comment on above: Result Comment: [id number] Testing performed by [facility] Blood [place] [address] [place] [address] Performed By: #### H LAB #### [facility] (DEFAULT) [address] [place] [address] SODIUM, 24 HR URINEon 2023 Sodium (U) [Moles/Vol] 50 mmol/L Normal [facility] Comment on above: Performed By: #### U RIN #### [facility] (DEFAULT) [address] [address] Urine Sodium 24 Hr 219 mmol/24 hrs Normal 40-220 [facility] Comment on above: Performed By: #### U RIN #### U [facility] (DEFAULT) [address] [address] URIC ACIDon 06-10-2023 Urate [Mass/Vol] 3.4 mg/dL Normal 2.8-6.0 [facility] Comment on above: Performed By: #### H LAB #### [facility] (DEFAULT) [address] [address] URIC ACID, 24HRon 06-10-2023 Interval 24 hrs Normal [facility] Comment on above: Performed By: #### U RIN #### [facility] (DEFAULT) [address] [address] Urine Uric Acid 18.9 mg/dL Normal [facility] Comment on above: Performed By: #### U RIN #### [facility] (DEFAULT) [address] [address] Urine Uric Acid 24 Hr 0.8 g/24 hrs Normal 0.3-0.8 [facility] Comment on above: Performed By: #### U RIN #### [facility] (DEFAULT) [address] [address] Urine Volume 4387 mL Normal [facility] Comment on above: Performed By: #### U RIN #### [facility] (DEFAULT) [address] [address] URINALYSISon 06-10-2023 Appearance (U) Clear Normal Clear [facility] Comment on above: Performed By: #### U RIN #### [facility] (DEFAULT) [address] [address] Bacteria ABSENT Normal ABSENT [facility] Comment on above: Performed By: #### U RIN #### [facility] (DEFAULT) [address] [place] [address] Blood Urine Negative Normal Negative [facility] Comment on above: Performed By: #### U RIN #### [facility] (DEFAULT) [address] [place] [address] Color (U) Yellow Normal Yellow [facility] Comment on above: Performed By: #### U RIN #### [facility] (DEFAULT) [address] [place] [address] Glucose Ql (U) Negative Normal Negative [facility] Comment on above: Performed By: #### U RIN #### [facility] (DEFAULT) [address] [place] [address] Ketones Ql (U) Negative Normal Negative [facility] Comment on above: Performed By: #### U RIN #### [facility] (DEFAULT) [address] [place] [address] Leukocyte esterase Test strip Ql (U) Negative Normal Negative [facility] Comment on above: Performed By: #### U RIN #### [facility] (DEFAULT) [address] [place] [address] Nitrites Urine Negative Normal Negative [facility] Comment on above: Performed By: #### U RIN #### [facility] (DEFAULT) [address] [place] [address] pH (U) 7.0 [pH] Normal 5.0-7.0 [facility] Comment on above: Performed By: #### U RIN #### [facility] (DEFAULT) [address] [place] [address] Protein Urine Negative Normal Negative [facility] Comment on above: Performed By: #### U RIN #### [facility] (DEFAULT) [address] [place] [address] RBC Urine 0-2 Normal 0-2 [facility] Comment on above: Performed By: #### U RIN #### [facility] (DEFAULT) [address] [place] [address] Specific [place] Urine 1.007 Normal 1.001-1.035 [facility] Comment on above: Performed By: #### U RIN #### [facility] (DEFAULT) [address] [place] [address] Squamous/Epithelial Cells 0-2/hpf Normal 0-2/hpf, 3-5/hpf = 1+ [facility] Comment on above: Performed By: #### U RIN #### [facility] (DEFAULT) [address] [address] Urobilinogen Urine 0.2 E.U./dL Normal 0.2 E.U/d L, 1.0 E.U/dL [facility] Comment on above: Performed By: #### U RIN #### [facility] (DEFAULT) [address] [place] [address] WBC Urine 0 - 5 Normal 0 - 5 [facility] Comment on above: Performed By: #### U RIN #### [facility] (DEFAULT) [address] [address] Basic Metabolic Panelon 09- Anion gap [Moles/Vol] 12.5 mmol/L Normal 6.0-15.0 [facility] Comment on above: Performed By: #### L IPID, BMP #### [facility] [address] [place] [address] [place] Calcium [Mass/Vol] 9.5 mg/dL Normal 8.6-10.3 [facility] Comment on above: Performed By: #### L IPID, BMP #### [facility] [address] [place] [address] [place] Chloride [Moles/Vol] 104 mmol/L Normal 98-107 [facility] Comment on above: Performed By: #### L IPID, BMP #### [facility] [address] [place] [address] [place] CO2 [Moles/Vol] 25.9 mmol/L Normal 21.0-31.0 [facility] Comment on above: Performed By: #### L IPID, BMP #### [facility] [address] [place] [address] [place] Creatinine [Mass/Vol] 0.82 mg/dL Normal 0.60-1.20 [facility] Comment on above: Performed By: #### L IPID, BMP #### [facility] [address] [place] [address] [place] GFR/1.73 sq M.predicted MDRD (S/P/Bld) [Vol rate/Area] mL/min/{1.73_m2} Normal [facility] Comment on above: Performed By: #### L IPID, BMP #### [facility] [address] [place] [address] [place] Glucose [Mass/Vol] 77 mg/dL Normal 70-100 [facility] Comment on above: Result Comment: [facility] Glucose Reference Range is dependent on time and content of last meal. Glucose of more than 200 mg/dL in a nonstressed, ambulatory subject supports the diagnosis of Diabetes Mellitus. ADA recommended reference range Performed By: #### L IPID, BMP #### [facility] [address] [place] [address] [place] Potassium [Moles/Vol] 4.4 mmol/L Normal 3.5-5.1 [facility] Comment on above: Performed By: #### L IPID, BMP #### [facility] [address] [place] [address] [place] Sodium [Moles/Vol] 138 mmol/L Normal 136-145 [facility] Comment on above: Performed By: #### L IPID, BMP #### [facility] [address] [place] [id number] [place] Urea nitrogen [Mass/Vol] 12 mg/dL Normal 7-25 [facility] Comment on above: Performed By: #### L IPID, BMP #### [facility] [address] [place] [address] [place] Calcium [Mass/volume] in Ser um or PlasmaOrdered By: Wes Chaves on 11-22-2022 Calcium [Mass/Vol] 9.5 mg/dL 8.6-10.3 [facility] Carbon dioxide, total [Moles /volume] in Serum or PlasmaOrdered By: Wes Chaves on 11-22-2022 CO2 [Moles/Vol] 25.9 mmol/L 21.0-31.0 [facility] Chloride [Moles/volume] in S kaci or PlasmaOrdered By: Wes Chaves on 11-22-2022 Chloride [Moles/Vol] 104 mmol/L 98-107 [facility] Cholesterol [Mass/volume] in Serum or PlasmaOrdered By: Wes Chaves on 11-22-2022 Cholesterol [Mass/Vol] 181 mg/dL 140-200 [facility] Comment on above: Chol less than 200 m g/dl low riskChol 201-239 mg/dl borderline riskChol 240 mg/dl and greater high risk Cholesterol in LDL Calc [Mas s/Vol]Ordered By: Wes Chaves on 11-22-2022 Cholesterol in LDL [Mass/Vol] 107 mg/dL 0-100 [facility] Comment on above: LDL ATP III CLASSIFI CATIONLDL less than 100 mg/dL OptimalLDL 100-129 mg/dL Near or above optimalLDL 130-159 mg/dL Borderline highLDL 160-189 mg/dL HighLDL greater than 189 mg/dL Very high Cholesterol in VLDL Calc [Ma ss/Vol]Ordered By: Wes Chaves on 11-22-2022 Cholesterol in VLDL [Mass/Vol] 16 mg/dL [facility] Creatinine [Mass/volume] in Serum or PlasmaOrdered By: Wes Chaves on 11-22-2022 Creatinine [Mass/Vol] 0.82 mg/dL 0.60-1.20 [facility] Glucose [Mass/volume] in Ser um or PlasmaOrdered By: Wes Chaves on 11-22-2022 Glucose [Mass/Vol] 77 mg/dL 70-100 [facility] Comment on above: ADA recommended refe rence rangeRandom Glucose Reference Range is dependent on time and content of last meal. Glucose of more than 200 mg/dL in a nonstressed, ambulatory subject supports the diagnosis of Diabetes Mellitus. Lipid Panelon 11-22-2022 Cholesterol [Mass/Vol] 181 mg/dL Normal 140-200 [facility] Comment on above: Result Comment: Chol less than 200 mg/dl low risk Chol 201-239 mg/dl borderline risk Chol 240 mg/dl and greater high risk Performed By: #### L IPID, BMP #### [facility] [address] Cholesterol in HDL [Mass/Vol] 58 mg/dL Normal 23-92 [facility] Comment on above: Result Comment: HDL CHOL ATP-III CLASSIFICATION Cardiovascular Risk HDL > or equal to 60 mg/dL LOW HDL < 40 mg/dL HIGH Performed By: #### L IPID, BMP #### [facility] [address] Cholesterol.total/Tangela sterol in HDL [Mass ratio] 3.1 {ratio} Normal <5.0 [facility] Comment on above: Result Comment: PERF ORMED BY: [place] [address] PATHOLOGIST [employer] GLENROY DÍAZ M.D. Performed By: #### L IPID, BMP #### [address] LDL Cholesterol,Calculated 107 mg/dL High 0-100 [facility] Comment on above: Result Comment: LDL ATP III CLASSIFICATION LDL less than 100 mg/dL Optimal LDL 100-129 mg/dL Near or above optimal LDL 130-159 mg/dL Borderline high LDL 160-189 mg/dL High LDL greater than 189 mg/dL Very high Performed By: #### L IPID, BMP #### [facility] [address] [place] [address] [place] Triglyceride w/Reflex 82 mg/dL Normal 0-149 [facility] Comment on above: Result Comment: TRIG ATP III CLASSIFICATION TRIG less than 150 mg/dL Normal TRIG 150-199 mg/dL Borderline high TRIG 200-500 mg/dL High TRIG greater than 500 mg/dL Very high Standard traceable to the Center for Disease Conrtrol and Prevention (CDC) test method. Performed By: #### L IPID, BMP #### [facility] [address] VLDL CHOLESTEROL 16 mg/dL Normal [facility] Comment on above: Performed By: #### L IPID, BMP #### [facility] [address] No Panel InformationOrdered By: Wes Chaves on 11-22-2022 Estimated GFR (CKD-EPI) > 60.0 mL/Min [facility] Creatinine Clearance (Chem N/A [facility] Potassium [Moles/volume] in Serum or PlasmaOrdered By: Wes Chaves on 11-22-2022 Potassium [Moles/Vol] 4.4 mmol/L 3.5-5.1 [facility] Serum or plasma anion gap de terminationOrdered By: Wes Chaves on 11-22-2022 Anion gap [Moles/Vol] 12.5 mmol/L 6.0-15.0 [facility] Serum or plasma high density lipoprotein (HDL) cholesterol measurementOrdered By: Wes Chaves on 11-22-2022 Cholesterol in HDL [Mass/Vol] 58 mg/dL 23-92 [facility] Comment on above: HDL CHOL ATP-III CLA SSIFICATION Cardiovascular RiskHDL > or equal to 60 mg/dL LOWHDL < 40 mg/dL HIGH Serum or plasma total choles terol/high density lipoprotein (HDL) cholesterol mass ratOrdered By: Wes Chaves on 11-22-2022 Cholesterol.total/Tangela sterol in HDL [Mass ratio] 3.1 {ratio} <5.0 [facility] Sodium [Moles/volume] in Ser um or PlasmaOrdered By: Wes Chaves on 11-22-2022 Sodium [Moles/Vol] 138 mmol/L 136-145 [facility] Triglyceride [Mass/volume] i n Serum or PlasmaOrdered By: Wes Chaves on 11-22-2022 Triglyceride [Mass/Vol] 82 mg/dL 0-149 [facility] Comment on above: TRIG ATP III CLASSIF ICATIONTRIG less than 150 mg/dL NormalTRIG 150-199 mg/dL Borderline highTRIG 200-500 mg/dL High TRIG greater than 500 mg/dL Very highStandard traceable to the Center for Disease Conrtrol and Prevention (CDC) test method. Urea nitrogen [Mass/volume] in Serum or PlasmaOrdered By: Wes Chaves on 11-22-2022 Urea nitrogen [Mass/Vol] 12 mg/dL 7-25 [facility] COMPLEMENT C1Qon 03-02-2022 Complement C1q, Quantitative 14.5 mg/dL Normal 10.3-20.5 [facility] Comment on above: Performed By: #### C OMPC1 #### [facility] [address] [address] [address] Rose Marie Robles CRYOGLOBIN QUAL W/QUANT REFE LXon 03-01-2022 Cryoglobulin, Ql, Serum, Rflx Comment Normal None detected [facility] Comment on above: Result Comment: None Detected at 72 hours This test was developed and its performance characteristics determined by [facility]. It has not been cleared or approved by the Food and Drug Administration. Performed By: #### C RYOGLO ####[facility] [address] [address]Dr. Rose Marie Robles IMMUNOGLOBULIN E, TOTALon Immunoglobulin E, Total 9 IU/mL Normal 6-495 T [facility] Comment on above: Performed By: #### I GETOT #### [facility] [address] [address] [address] Rose Marie Robles CK TOTAL ISO ENZYMESon 02-27 CK-BB 0 % Normal 0 [facility] Comment on above: Performed By: #### C K ISO #### [facility] [address] [address] [address] Rose Marie Robles CK-MB 0 % Normal 0-3 [facility] Comment on above: Performed By: #### C K ISO #### [facility] [address] [address] [address] Rose Marie Robles CK-MM 100 % Normal 97-100 [facility] Comment on above: Performed By: #### C K ISO #### [facility] [address] [address] [address] Rose Marie Robles Creatine Kinase,Total,Serum 94 U/L Normal 32-182 [facility] Comment on above: Performed By: #### C K ISO #### [facility] [address] [place] [address] Dr. Rose Marie Robles Macro Type 1 0 % Normal Not Observed The [facility] Comment on above: Performed By: #### C K ISO #### [facility] [address] [place] [address] Dr. Rose Marie Robles Macro Type 2 0 % Normal Not Observed The [facility] Comment on above: Performed By: #### C K ISO #### [facility] [address] [place] [address] Dr. Rose Marie Robles IGG SUBCLASSES (1-4) AND TOT Lily 02-27-2022 IgG, Subclass 1 700 mg/dL Normal 248-810 [facility] Comment on above: Performed By: #### I GGSB #### [facility] [address] [place] [address] Dr. Rose Marie Robles IgG, Subclass 2 436 mg/dL Normal 130-555 [facility] Comment on above: Performed By: #### I GGSB #### [facility] [address] [place] [address] Dr. Rose Marie Robles IgG, Subclass 3 58 mg/dL Normal 15-102 [facility] Comment on above: Performed By: #### I GGSB #### [facility] [address] [place] [address] Dr. Rose Marie Robles IgG, Subclass 4 29 mg/dL Normal 2-96 [facility] Comment on above: Performed By: #### I GGSB #### [facility] [address] [place] [address] Dr. Rose Marie Robles Immunoglobulin G, Qn, Serum 1111 mg/dL Normal 586-1602 [facility] Comment on above: Performed By: #### I GGSB #### [facility] [address] [place] [address] Dr. Rose Marie Robles ALDOLASEon 02-26-2022 Aldolase 2.1 U/L Critically low 3.3-10.3 [facility] Comment on above: Performed By: #### A LDOLAS #### [facility] [address] [address] [address] Rose Marie Robles C3 and C4 COMPLEMENTon 02-26 Complement C3, Serum 104 mg/dL Normal 82-167 [facility] Comment on above: Performed By: #### C SUITE ####[facility] [address] [id number] Rose Marie Robles Complement C4, Serum 15 mg/dL Normal 12-38 [facility] Comment on above: Performed By: #### C SUITE ####[facility] [address] [id number]. Rose Marie Robles COMPLEMENT TOTAL (CH50)on Complement, Total (CH50) 53 U/mL Normal >41 [facility] Comment on above: Result Comment: Age Male Female 1 - 30 days Not Estab. Not Estab. 31 days - 6 months >32 >20 7 months - 17 years >39 >39 >17 years >41 >41 NOTE: The adult ( >17 years ) reference interval range is used to flag abnormals on this report. If the patient is 17 years old or younger, use the table above to determine out of range values. Performed By: #### C H50T #### [facility] [address] [address] [address] Rose Marie Robles HEPATITIS PANEL, ACUTEon HBsAg Screen Negative Normal Negative [facility] Comment on above: Performed By: #### H EPACUT #### [facility] [address] [address] [address] Rose Marie Robles HCV AB <0.1 Normal 0.0-0.9 [facility] Comment on above: Performed By: #### H EPACUT #### [facility] [address] [place] [address] Dr. Rose Marie Robles Hep A Ab, IgM Negative Normal Negative [facility] Comment on above: Performed By: #### H EPACUT #### [facility] [address] [address] [address] Rose Marie Robles Hep B Core Ab, IgM Negative Normal Negative [facility] Comment on above: Performed By: #### H EPACUT #### [facility] [address] [place], [place] [address] Dr. Rose Marie Robles Interpretation: Comment Normal [facility] Comment on above: Result Comment: Nega tive Not infected with HCV, unless recent infection is suspected or other evidence exists to indicate HCV infection. Performed By: #### H EPACUT #### [facility] [address] [place], [place] [address] Dr. Rose Marie Robles IMMUNOGLOBULIN IGA QUANTITIA VEon 02-25-2022 Immunoglobulin A, Qn, Serum 268 mg/dL Normal 87-352 [facility] Comment on above: Performed By: #### I MIGAQN #### [facility] [address] [place], [place] [address] Dr. Rose Marie Robles IMMUNOGLOBULIN IGM QUANTITAT IVEon 02-25-2022 Immunoglobulin M, Qn, Serum 192 mg/dL Normal 26-217 [facility] Comment on above: Performed By: #### I MIGMQN ####[facility] [address] [place], [place] [address]RtDr. Rose [address]les CT CHEST WO CONon 12-26-2021 CT CHEST WO CON EXAMINATION: CT CHES T WO CON HISTORY: Lung field abnormal ; follow-up lung nodules COMPARISON: CT chest 04/15/2021 TECHNIQUE: Axial, Coronal, and Sagittal images were created without the administration of IV contrast material. Dose reduction techniques were achieved by using automated exposure control and/or adjustment of mA and/or kV according to patient size and/or use of iterative reconstruction technique. FINDINGS: LUNGS: Stable appearance of the 2 small nodules, one within the right upper lobe and one within the right lower lobe. No new nodules, acute infiltrates, or chronic interstitial changes. PLEURA: No mass, effusion, or pneumothorax. VASCULATURE: No abnormality. ALIA: No mass or adenopathy. MEDIASTINUM: No mass or adenopathy. CARDIAC: No enlargement or pericardial thickening. AORTA: No aneurysm or dissection. CHEST WALL: No mass or axillary adenopathy. BONES: No bone lesion or fracture. LIMITED ABDOMEN: No suspicious findings. Limited images of the upper abdomen. OTHER: Negative. IMPRESSION: 1. Stable appearance of the 2 small nodules within the right lung, largest is 6 mm. Neither or overtly suspicious. If patient is at increased risk for lung cancer consider follow-up imaging in one year. Otherwise no additional follow-up recommended at this time. Electronically authenticated by: VALENCIA KEMP Date: 2021-12-26 21:30 Normal [facility] URINALYSISon 07-12-2021 Appearance (U) CLEAR Normal CLEAR [facility] Comment on above: Performed By: #### U A #### [facility] [address] [place] [address] Bilirubin Ql (U) Negative Normal NEGATIVE [facility] Comment on above: Performed By: #### U A #### [facility] [address] [place] [address] Color (U) YELLOW Normal STRAW,YELLOW [facility] Comment on above: Performed By: #### U A #### [facility] [address] [place] [address] Glucose Ql (U) Negative Normal NEGATIVE [facility] Comment on above: Performed By: #### U A #### [facility] [address] [place] [address] Hemoglobin Ql (U) Negative Normal NEGATIVE [facility] Comment on above: Performed By: #### U A #### [facility] [address] [place] [address] Ketones Ql (U) 5 (TRACE) Abnormal NEGATIVE [facility] Comment on above: Performed By: #### U A #### [facility] [address] [place] [address] Leukocyte esterase Test strip Ql (U) Negative Normal NEGATIVE [facility] Comment on above: Performed By: #### U A #### [facility] [address] [place] [address] Nitrite Ql (U) Negative Normal NEGATIVE [facility] Comment on above: Performed By: #### U A #### [facility] [address] [place] [address] pH (U) 6.0 [pH] Normal 5.0 - 8.0 [facility] Comment on above: Performed By: #### U A #### [facility] [address] [place] [address] Protein Ql (U) Negative Normal NEGATIVE [facility] Comment on above: Performed By: #### U A #### [facility] [address] [place] [address] Specific gravity (U) [Rel density] 1.020 Normal 1.005 - 1.035 [facility] Comment on above: Performed By: #### U A #### [facility] [address] [place] [address] Urobilinogen (U) [Mass/Vol] mg/dL Normal 0.0 - 1.9 [facility] Comment on above: Performed By: #### U A #### [facility] [address] 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 Her pulm wants to r/o GPA. However, pt has clear sinus and pulm CTs. She does not have hypereosinophilia, although she does have mild asthma. She does not have hemoptysis, epistaxis, or other sx to suggest active vasculitis. I cannot find a UA CORINE+ with low +ds DNA RF, CCP Ab, ESR, CRP, CBC, CMP, and TSH are nl The significance of her +autoantibodies is unclear. MPO antibodies are seen in MPA but can be seen in people with autoimmune thyroid dz, RA, SLE, other atuoimmune dz, infection, malignancy, and in people without any obvious dz. Pt had cardiac monitoring, and although she reported palpitations, nausea, CP, and SOB, there were no events recorded, and the monitoring was unremarkable She may have an element of FM - she has had decades of chronic pain and fatigue. I d/w pt and expl that I do not treat I cannot r/o a low-level CTD, but clinically, she does not have evidence of vasculitis or CTD She has not had a UA, so I will check to r/o hematuria I discussed periodic re-eval - she lives 2 hrs away, so I recommended that she establish with a closer rheum, although she is free to f/u with me if she desires. >80 min with pt and reviewing notes Chief Complaint Ref per Dr. Hewitt abnormal labs with poss autoimmune issue. Eval with Dr. carroll with no definitive diagnosis. She continued to offer me all kinds of pain medication and that is not what I want Ordered repeat labs from Dr. Hewitt. CT scan sinus / lung, neg results with exception of small nodule of no concern per Dr. Hewitt. C/O chronic fatigue I feel like I ran a marathon every day. Bilat foot coldness Joint stiffness with dull achiness head to toe. Red / hot rash on cheeks off and on, significantly out with light exposure. Small lumps with exposure to sunlight, disappearing in approx 3 days. mother has sever arthritis, hospitalized as at age 17, unsure of diagosis New diagnosis of asthma x 1 year. bc History of Present IllnessShe is here for a second opinion. Sx are lifelong She has chronic bronchitis, pulmonary - related issues and has a lot of drainage. She has a lot of fatigue. She was found to have a positive ANCA which kind of correlated with a lot of my other sx - her feet and hands always seem like they are submerged in ice but the rest of her body feels very hot. For 7 yrs, her face gets hot and red, but the rest of her body is ice cold - can last quite awhile - hours. Id she is in a bright room or in sunlight all day, she gets these little dots - they look like the start of a plantar wart She has pain everywhere - legs, ankles, arms deep dull pain. She will pop little blood vessels in my hands . She has had pain even as a young child and was told that she has growing pains - she hasn't seen rheum as child. Most recently, she was referred to a local rheum but said never saw the dr, just the nurse, and they wouldn't see her because they thought she had GPA. She was sent to [facility], and she states that she was offered any kind of pain medicine that I wanted - yet she couldn't say what she had rambled off - this was at a phone note - per chart, she was offered hcq, but pt refused because no definitive dx was given. The pain is not my biggest complaint by any means - her cold ft, her hot face, and her fatiguge ar her problems. She sometimes takes tylenol qhs for a better night's rest but doesn't take very often I know it's not good to take I usually curl up with a heating pad or hot bath to relax She gen sleeps well 7 hrs and wakes at least 1x for BR. She is achy when she gets OOB I sound like a rice krispie treat She used to run, but this made her knees hurt. She uses an exercise bike and does yardwork on [address]. Sometimes she feels like she is dragging herself through it. Her hands swell, mainly upon awakening or with overuse. Gets fevers I also have endometriosis easily 102 or [address] about this. There was no pattern to this. +freq BRITO. Lips get very dry sometimes but no sicca. No mouth sores. No raynauds although nailbeds get purple. Had episodes of sharp R-sided CP. Sl SOB - she was dx with asthma - breo helped, and she doesn't get drainage any more. No epistaxis or hemoptysis. A lot of gastrointestinal pain - I want to curl up in a position No other GI. Rare numbness in her hands. FH - +arthritis. GM - lupus SH - nonsmoker. No EtOH. No drugs Active Problems Asthma (493.90) (J45.909) Surgical History History of Appendectomy History of Tonsillectomy Social History Never a smoker Occasional alcohol use Allergies No Known Allergies Recorded By: Antonella Ritchie; 07/10/2021 4:32:03 PM Current Meds Medi (more content not included)... Normal [facility] Urinalysison 07-11-2021 Color (U) YELLOW See Below [facility] 150 Work Phone: Comment on above: Reference Range: STR AW,YELLOW Glucose Ql (U) Negative NEGATIVE [facility] 150 Work Phone: Ketones Ql (U) 5 (TRACE) Abnormal NEGATIVE [facility] 150 Work Phone: Leukocyte esterase Test strip Ql (U) Negative NEGATIVE [facility] Work Phone: pH (U) 6.0 [pH] 5.0 - 8.0 [facility] 150 Work Phone: Protein (U) [Mass/Vol] Negative NEGATIVE [facility] 150 Work Phone: RBC (U) [#/Vol] Negative NEGATIVE [facility] 150 Work Phone: Specific gravity (U) [Rel density] 1.020 1 See Below [facility] 150 Work Phone: Comment on above: Reference Range: 1.0 05 - 1.035 Urinalysis Negative NEGATIVE [facility] 150 Work Phone: Urinalysis <2.0 0.0 - 1.9 [facility] 150 Work Phone: Urinalysis CLEAR [facility]AR [facility] Work Phone: CNPNon 05-01-2021 CNPN Telephone (RHEUMN) CHRYSTAL TERAN ([id number]) 1985 F Date Time Provider Department 05/01/21 QUINN LEVINN During your visit today, we recorded the following information about you: Sonya Gisele Tovar 05/01/2021 3:[address] Zhu, The patient is calling for her next treatment steps. Please call her at [phone] (home) Thank you Quinn Garza MD 05/02/2021 7:09 AM Signed I spoke to patient yesterday She continues to have polyarthralgia and fatigue Cough and SOB better since on Breo Chest and sinus CT were normal + MPO-ANCA Symptoms, physical exam, labs and CTs - at this time, despite positive ANCA, the diagnosis of GPA cannot be established with certainty Her main symptom is joint pain - I suggested a trial of hydroxychloroquine: benefits and risks discussed. She will read and think more about it an call me back with a decision. Electronically Signed by Quinn Zhu MD, MPH Allergies As of Date: 05/01/2021 (No Known Allergies) Date Reviewed: 04/07/2021 Reviewed by: Paris Jaramillo Ma - Fully Assessed Reason for Visit: Patient Question [9647] Prescriptions as of 05/02/2021 - Biotin 10,000 mcg cap - cholecalciferol (VITAMIN D-3) 5,000 unit tab - Cyanocobalamin 2,000 mcg TbER Take 1 tablet by mouth once daily. - BREO ELLIPTA 200-25 mcg/dose inhaler - ibuprofen (MOTRIN) 600 mg tablet 600 mg. - Lacto no.76/Bifido/FOS/larc h (WOMEN'S PROBIOTIC ORAL) - Norethindrone Acet-Ethinyl Est 1-20 mg-mcg per tablet - pcjyi-0k-dlq-epa-fish oil 600-1,200 mg cap - multivitamin (MULTIPLE VITAMIN ORAL) Take 1 tablet by mouth once daily. - TURMERIC ORAL - MULTIVITAMIN TAB Take one(1) tablet daily. Problem List As Of Date 05/01/2021 Noted Resolved Anemia [D64.9] 01/03/2009 Encounter Status:Closed by QUINN LEVIN on 05/02/21 Normal [facility] CNPNupur 04-27-2021 CNPN Telephone (RHEUMN) CHRYSTAL TERAN ([id number]) 1985 F Date Time Provider Department 04/27/21 QUINN LEVIN During your visit today, we recorded the following information about you: Mireille Sung 04/27/2021 9:29 AM Signed Received an office note from Dr. Hewitt dated 04/26/2021. Scanned to chart and forwarded to doctor for review. Allergies As of Date: 04/27/2021 (No Known Allergies) Date Reviewed: 04/07/2021 Reviewed by: Paris Jaramillo Ma - Fully Assessed Reason for Visit: Office Note Received [Other] Prescriptions as of 04/27/2021 - Biotin 10,000 mcg cap - cholecalciferol (VITAMIN D-3) 5,000 unit tab - Cyanocobalamin 2,000 mcg TbER Take 1 tablet by mouth once daily. - BREO ELLIPTA 200-25 mcg/dose inhaler - ibuprofen (MOTRIN) 600 mg tablet 600 mg. - Lacto no.76/Bifido/FOS/larc h (WOMEN'S PROBIOTIC ORAL) - Norethindrone Acet-Ethinyl Est 1-20 mg-mcg per tablet - lvuih-2b-mnd-epa-fish oil 600-1,200 mg cap - multivitamin (MULTIPLE VITAMIN ORAL) Take 1 tablet by mouth once daily. - TURMERIC ORAL - MULTIVITAMIN TAB Take one(1) tablet daily. Problem List As Of Date 04/27/2021 Noted Resolved Anemia [D64.9] 01/03/2009 Encounter Status:Closed by MIREILLE MARX on 04/27/21 [facility] MILLIEN Telephone (RHEUMN) CHRYSTAL TERAN ([id number]) 1985 F Date Time Provider Department 04/27/21 QUINN LEVIN During your visit today, we recorded the following information about you: Mireille Anh Sung 04/27/2021 8:28 AM Signed Patient has been identified by name and date of : Yes . Patient calling for :results. Patient was calling to discuss her CT results (scanned into [employer]) Pharmacy has been updated: Yes . [facility] Return call needed: Patient is expecting a call back. Can be reached at phone number listed below.. Patient can be reached at : [phone] Allergies As of Date: 04/27/2021 (No Known Allergies) Date Reviewed: 04/07/2021 Reviewed by: Paris Jaramillo Ma - Fully Assessed Reason for Visit: Results [95] Prescriptions as of 05/24/2021 - Biotin 10,000 mcg cap - cholecalciferol (VITAMIN D-3) 5,000 unit tab - Cyanocobalamin 2,000 mcg TbER Take 1 tablet by mouth once daily. - BREO ELLIPTA 200-25 mcg/dose inhaler - ibuprofen (MOTRIN) 600 mg tablet 600 mg. - Lacto no.76/Bifido/FOS/larc h (WOMEN'S PROBIOTIC ORAL) - Norethindrone Acet-Ethinyl Est 1-20 mg-mcg per tablet - rcblm-6v-hsw-epa-fish oil 600-1,200 mg cap - multivitamin (MULTIPLE VITAMIN ORAL) Take 1 tablet by mouth once daily. - TURMERIC ORAL - MULTIVITAMIN TAB Take one(1) tablet daily. Problem List As Of Date 04/27/2021 Noted Resolved Anemia [D64.9] 01/03/2009 Encounter Status:Closed by MIREILLE MARX on 05/24/[address] [facility] [address] CHEST WO CONon 04-15-2021 CT CHEST WO CON CT CHEST WITHOUT CONTRAST CLINICAL: Immunoglobulin level -patient reports history of positive ANCA. COMPARISON: No prior CT is available. Correlation is with chest radiographs 01/17/2021. TECHNIQUE: High-resolution thin section axial images were obtained from thoracic inlet to the level of the adrenals. Dose reduction: mA and/or kV are were adjusted by automated exposure control software based upon patients height and weight. FINDINGS: Thoracic inlet and axillary structures are grossly intact. Triangular soft tissue density in the anterior mediastinum is consistent with thymic remnant in light of patient's age. No mediastinal or hilar adenopathy, within limits of noninfused technique. Heart size is normal. No pericardial effusion or mediastinal fluid collection. Limited upper abdominal images show a small calcification in the gallbladder fossa at the derrick hepatis level which may be vascular or represent a tiny gallstone. No CT evidence of biliary obstruction. No acute upper abdominal findings. Lung windows show no regional airspace consolidation, focal infiltrate, pleural effusion or pneumothorax. There is a pleural-based nodule of 6 mm in the anterior right upper lobe on series 3 image 63 additional tiny pleural-based nodular density in the posteromedial right lower lobe measures 3 mm on image 84. Osseous structures show no acute traumatic or osseous destructive lesion. Sclerotic opacity within the left scapular acromion process likely a benign bone island. IMPRESSION: 1. No acute intrathoracic findings. 2. Two right sided pleural-based nodules of up to 6 mm are identified. Although patient is below typical age threshold of 35 for application of Fleischner Society criteria, the criteria would suggest a 3-6 month follow-up for nodules of this size. Correlate clinically, with CT follow-up as warranted. Electronically authenticated by: SHIVANI KENDRICK Date: 2021-04-15 11:16 Normal [facility] CT SINUSES WO CONon 04-15-[address] SINUSES WO CON CT SINUS WITHOUT CONTRAST COMPARISON: Head CT 12/26/2020 TECHNIQUE: Axial CT images of the paranasal sinuses were obtained without intravenous contrast. Coronal and sagittal reconstructions were obtained after post processing. Dose reduction techniques were achieved by using automated exposure control and/or adjustment of mA and/or kV according to patient size and/or use of iterative reconstruction technique. HISTORY: Chronic sinusitis FINDINGS: The frontal sinuses and frontal ethmoidal junctions are clear. The sphenoid sinuses and sphenoid-ethmoidal recesses are clear. The ethmoid air cells are clear. The maxillary sinuses are clear. The ostiomeatal units are patent. The carotid canals are well covered by bone. The laminae papyracea are intact. The roofs of the ethmoid air cells are symmetric. The optic canals are well covered by bone. Visualized soft tissues of the face are unremarkable. The imaged intracranial structures, calvarium, skull base, craniocervical junction and cervical spine are unremarkable. IMPRESSION: Unremarkable noncontrast CT of the paranasal sinuses. Electronically authenticated by: ANDRE RED Date: 2021-04-15 15:19 Normal [facility] Anti-Neutro.Cyto.Abon 2021 ANCA Interpretation Positive for P-ANCA pattern by confirmatory indirect immunofluorescence and by multiplex flow immunoassay for Myeloperoxidase. Clinical correlation is required. Normal [facility] Comment on above: Performed By: #### T SH, CBCDIF, WSR, CANBLL, PANBLL, CMP, CRP, ANCA #### [place] [address] [place] [phone] C-ANCA Fluorescence Negative Normal Negative [facility] Comment on above: Performed By: #### T SH, CBCDIF, WSR, CANBLL, PANBLL, CMP, CRP, ANCA #### [place] [address] [place] [phone] Myeloperoxidase Ab >8.0 High <1.0 [facility] Comment on above: Performed By: #### T SH, CBCDIF, WSR, CANBLL, PANBLL, CMP, CRP, ANCA #### [place] [address] [place] [phone] P-ANCA Fluorescence Positive Critically abnormal Negative [facility] Comment on above: Performed By: #### T SH, CBCDIF, WSR, CANBLL, PANBLL, CMP, CRP, ANCA #### [place] [address] [place] [phone] Proteinase-3 Ab <0.2 Normal <1.0 [facility] Comment on above: Performed By: #### T SH, CBCDIF, WSR, CANBLL, PANBLL, CMP, CRP, ANCA #### [place] [address] [place] [phone] Staff Review Reviewed by Felix Pradhan, Ph.D, D([facility]) Normal [facility] Comment on above: Performed By: #### T SH, CBCDIF, WSR, CANBLL, PANBLL, CMP, CRP, ANCA #### [place] [address] [place], [place] [id number] C-Reactive Proteinon 022 CRP [Mass/Vol] mg/L Normal <0.9 [facility] Comment on above: Performed By: #### T SH, CBCDIF, WSR, CANBLL, PANBLL, CMP, CRP, ANCA #### [place] [address] CANCA Reflexon 04-07-2021 CANCA Reflex Billed for services performed Normal [facility] Comment on above: Performed By: #### T SH, CBCDIF, WSR, CANBLL, PANBLL, CMP, CRP, ANCA #### [place] [address] CBC and Differentialon 04-07 Abs Baso 0.05 k/uL Normal <0.11 [facility] Comment on above: Performed By: #### T SH, CBCDIF, WSR, CANBLL, PANBLL, CMP, CRP, ANCA #### [address] [address] Abs Eosin <0.03 Normal <0.46 [facility] Comment on above: Performed By: #### T SH, CBCDIF, WSR, CANBLL, PANBLL, CMP, CRP, ANCA #### [place] [address] [place], [place] [address] Abs Fulton 0.44 k/uL Normal <0.87 [facility] Comment on above: Performed By: #### T SH, CBCDIF, WSR, CANBLL, PANBLL, CMP, CRP, ANCA #### [address] [address] Abs Neut 4.28 k/uL Normal 1.45-7.50 [facility] Comment on above: Performed By: #### T SH, CBCDIF, WSR, CANBLL, PANBLL, CMP, CRP, ANCA #### [place] [address] [place] [address] Absolute nRBC <0.01 Normal <0.01 [facility] Comment on above: Performed By: #### T SH, CBCDIF, WSR, CANBLL, PANBLL, CMP, CRP, ANCA #### [place] [address] Basophils/100 WBC (Bld) 0.8 % [facility] on above: Performed By: #### T SH, CBCDIF, WSR, CANBLL, PANBLL, CMP, CRP, ANCA #### [place] [address] DTYPE Auto Diff Normal [facility] Comment on above: Performed By: #### T SH, CBCDIF, WSR, CANBLL, PANBLL, CMP, CRP, ANCA #### [place] [address] [place] [address] Eosinophils/100 WBC (Bld) 0.2 % Normal [facility] Comment on above: Performed By: #### T SH, CBCDIF, WSR, CANBLL, PANBLL, CMP, CRP, ANCA #### [place] [address] Erythrocyte distribution width (RBC) [Ratio] 12.8 % Normal 11.5-15.0 [facility] Comment on above: Performed By: #### T SH, CBCDIF, WSR, CANBLL, PANBLL, CMP, CRP, ANCA #### [place] [id number] Hematocrit (Bld) [Volume fraction] 45.3 % Normal 36.0-46.0 [facility] Comment on above: Performed By: #### T SH, CBCDIF, WSR, CANBLL, PANBLL, CMP, CRP, ANCA #### [place] [address] [place], [place] [address] Hemoglobin (Bld) [Mass/Vol] 13.8 g/dL Normal 11.5-15.5 [facility] Comment on above: Performed By: #### T SH, CBCDIF, WSR, CANBLL, PANBLL, CMP, CRP, ANCA #### [place] [address] Lymphocytes (Bld) [#/Vol] 1.84 10*3/uL Normal 1.00-4.00 [facility] Comment on above: Performed By: #### T SH, CBCDIF, WSR, CANBLL, PANBLL, CMP, CRP, ANCA #### [place] [address] [place] [address] Lymphocytes/100 WBC (Bld) 27.7 % Normal [facility] Comment on above: Performed By: #### T SH, CBCDIF, WSR, CANBLL, PANBLL, CMP, CRP, ANCA #### [place] [address] [place] [address] MCH 27.9 pG Normal 26.0-34.0 [facility] Comment on above: Performed By: #### T SH, CBCDIF, WSR, CANBLL, PANBLL, CMP, CRP, ANCA #### [place] [address] [place] [address] MCHC (RBC) [Mass/Vol] 30.5 g/dL Normal 30.5-36.0 [facility] Comment on above: Performed By: #### T SH, CBCDIF, WSR, CANBLL, PANBLL, CMP, CRP, ANCA #### [place] [address] [place], [place] [address] MCV (RBC) [Entitic vol] 91.5 fL Normal 80.0-100.0 C [facility] Comment on above: Performed By: #### T SH, CBCDIF, WSR, CANBLL, PANBLL, CMP, CRP, ANCA #### [place] [address] [place] [address] Monocytes/100 WBC (Bld) 6.6 % Normal C [facility] Comment on above: Performed By: #### T SH, CBCDIF, WSR, CANBLL, PANBLL, CMP, CRP, ANCA #### [place] [address] [place] [address] Neutrophils/100 WBC (Bld) 64.7 % Normal [facility] Comment on above: Performed By: #### T SH, CBCDIF, WSR, CANBLL, PANBLL, CMP, CRP, ANCA #### [address] [address] NRBCs 0.0 /100 WBC Normal 0 [facility] Comment on above: Performed By: #### T SH, CBCDIF, WSR, CANBLL, PANBLL, CMP, CRP, ANCA #### [place] [address] [place], [place] [address] Platelet mean volume (Bld) [Entitic vol] 9.6 fL Normal 9.0-12.7 [facility] Comment on above: Performed By: #### T SH, CBCDIF, WSR, CANBLL, PANBLL, CMP, CRP, ANCA #### [place] [address] [place], [place] [address] Platelets (Bld) [#/Vol] 426 10*3/uL High 150-400 [facility] Comment on above: Performed By: #### T SH, CBCDIF, WSR, CANBLL, PANBLL, CMP, CRP, ANCA #### [facility] [address] [place], [place] [address] RBC (Bld) [#/Vol] 4.95 10*6/uL Normal 3.90-5.20 [facility] Comment on above: Performed By: #### T SH, CBCDIF, WSR, CANBLL, PANBLL, CMP, CRP, ANCA #### [facility] [address] [place], [place] [address] WBC (Bld) [#/Vol] 6.64 10*3/uL Normal 3.70-11.00 [facility] Comment on above: Performed By: #### T SH, CBCDIF, WSR, CANBLL, PANBLL, CMP, CRP, ANCA #### [facility] [address] [place], [place] [address] CNOVon 04-07-2021 CNOV Office Visit (RHEUMN ) CHRYSTAL TERAN ([id number]) 1985 F Date Time Provider Department 04/07/21 8:00 QUINN SOLER During your visit today, we recorded the following information about you: Temperature Pulse Blood pressure Weight 99 degrees 89/minute 116/69 61.7 kg Height 1.575 m Quinn Garza MD 04/11/2021 2:42 PM Signed Chrystal Lino is a 35 year old female. Consultation was requested by Dr. Hewitt (mail handler assistant) for an opinion regarding possible ANCA-vasculitis; my final assessment and recommendations will be communicated back to the requesting physician by way of shared medical record, or by letter via fax or [place] mail. Evaluation Date: 04/07/2021 Chief Complaint: abnormal blood tests: ANCA HPI: History was obtained from the patient and from outside records. Chrystal Teran dates her history back to about 2 yrs ago when she started to have worse symptoms fatigue, multiple joint pain and stiffness, mainly in the morning. She has had chronic sinus symptoms all her life: pressure, drainage, chronic cough Frequent episodes of bronchitis She had tonsillectomy May 2020 and she had relief of some of the symptoms Fall 2020: she went back to ENT because of persistent SOB (last 2-3 yrs but didn't get better after the tonsillectomy). ENT referred her to pulmonology. Jan 2021: first visit with mail handler assistant; she had PFTs: mildly abnormal suggestive of asthma. She was started on BREO with minimal improvement: SOB and cough CXR normal She has had fatigue all her life but has been feeling it much worse in the last 2 yrs She had a positive MPO-ANCA and was referred for evaluation of possible GPA or EGPA No chest CT She has not been given prednisone She exercises every day. She is able to walk on the treadmill with resistance for 30 minutes since age 6 she has been taken to doctors because of severe body pain and she was told she had growing pains Review of Systems CONSTITUTION: Negative for: Fever and Recent weight change HEENT: Negative for: Nosebleeds, Mouth sores, Trouble swallowing and Dry mouth RESPIRATORY: Positive for: Cough and Shortness of breath Negative for: Pain with breathing and Coughing up blood GASTROINTESTINAL: Negative for: Melena, Diarrhea, Heartburn and Abdominal pain MUSCULOSKELETAL: Positive for: Arthralgias and Morning Joint Stiffness Negative for: Myalgias, Muscle weakness and Joint swelling NEUROLOGICAL: Positive for: Headaches and Numbness Negative for: Memory loss SKIN: Positive for: Skin changes and Hair loss Negative for: Rash and Nail changes thinning of the hair in the last 3 yrs no rashes EYES: Positive for: Eye dryness Negative for: Eye pain, Eye redness and visual disturbance CARDIOVASCULAR: Negative for: Chest pain and Leg swelling GENITOURINARY: Negative for: Dysuria and Hematuria HEMATOLOGIC/LYMPHATIC : Negative for: Swollen glands hands and feet always feel very cold ROS GENERAL: fatigue FEVER: at least once a week - up to 100.3. She attributes it to endometriosis WEIGHT CHANGE: none HEAD: negative for, scalp tenderness, jaw claudication, tongue claudication, temporal tenderness + migraines ENT: negative for, sinus tenderness, nasal crusting, epistaxis, ear pain, decreased hearing, sore throat, difficulty swallowing, mouth lesions, voice changes, loud noisy breathing or stridor + post nasal drip EYES: negative for , pain, visual blurring, permanent visual loss, transient visual loss, diplopia, proptosis NECK: negative for, mass, pain, swelling, tenderness RESPIRATORY: + dry cough and sometimes with clear phlegm No hemoptysis + SOB, worse with exertion no chest pain CARDIOVASCULAR: negative for, extremity claudication, digital ischemia, Raynaud's GASTROINTESTINAL: negative for, abdominal pain, vomiting, diarrhea URINARY: negative for, dysuria, hematuria 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 endometriosis PAST SURGICAL HISTORY: PAST SURGICAL HISTORY Procedure Laterality Date tonsillectomy bilateral bunionectomy CURRENT MEDICATIONS: Current Outpatient Medications Medication Sig - Biotin 10,000 mcg cap - cholecalciferol (VITAMIN D-3) 5,000 unit tab - Cyanocobalamin 2,000 mcg TbER Take 1 tablet by mouth once daily. - BREO ELLIPTA 200-25 mcg/dose inhaler - ibuprofen (MOTRIN) 600 mg tablet 600 mg. - Lacto no.76/Bifido/FOS/larc h (WOMEN'S PROBIOTIC ORAL) - Norethindrone Acet-Ethinyl Est 1-20 mg-mcg per tablet - urmhd-8a-ceo-epa-fish oil 600-1,200 mg cap - multivitamin (MUL (more content not included)... Normal [facility] Comp Metabolic Panelon 04-07 Albumin [Mass/Vol] 4.3 g/dL Normal 3.9-4.9 [facility] Comment on above: Performed By: #### T SH, CBCDIF, WSR, CANBLL, PANBLL, CMP, CRP, ANCA #### [facility] [address] [place], [place] [address] ALP [Catalytic activity/Vol] 58 U/L Normal 34-123 [facility] Comment on above: Performed By: #### T SH, CBCDIF, WSR, CANBLL, PANBLL, CMP, CRP, ANCA #### [place] [address] [place] [address] ALT [Catalytic activity/Vol] 21 U/L Normal 7-38 [facility] Comment on above: Performed By: #### T SH, CBCDIF, WSR, CANBLL, PANBLL, CMP, CRP, ANCA #### [place] [address] [place] [address] Anion gap [Moles/Vol] 11 mmol/L Normal 9-18 [facility] Comment on above: Performed By: #### T SH, CBCDIF, WSR, CANBLL, PANBLL, CMP, CRP, ANCA #### [address] [address] AST [Catalytic activity/Vol] 27 U/L Normal 13-35 [facility] Comment on above: Performed By: #### T SH, CBCDIF, WSR, CANBLL, PANBLL, CMP, CRP, ANCA #### [place] [address] [place], [place] [address] Bilirubin [Mass/Vol] 0.2 mg/dL Normal 0.2-1.3 [facility] Comment on above: Performed By: #### T SH, CBCDIF, WSR, CANBLL, PANBLL, CMP, CRP, ANCA #### [place] [address] [place] [address] Calcium [Mass/Vol] 9.3 mg/dL Normal 8.5-10.2 [facility] Comment on above: Performed By: #### T SH, CBCDIF, WSR, CANBLL, PANBLL, CMP, CRP, ANCA #### [place] [address] [place], [place] [address] Chloride [Moles/Vol] 106 mmol/L High 97-105 [facility] Comment on above: Performed By: #### T SH, CBCDIF, WSR, CANBLL, PANBLL, CMP, CRP, ANCA #### [place] [address] [place] [phone] CO2 [Moles/Vol] 24 mmol/L Normal 22-30 [facility] Comment on above: Performed By: #### T SH, CBCDIF, WSR, CANBLL, PANBLL, CMP, CRP, ANCA #### [place] [address] [place] [phone] Creatinine [Mass/Vol] 0.75 mg/dL Normal 0.58-0.96 [facility] Comment on above: Performed By: #### T SH, CBCDIF, WSR, CANBLL, PANBLL, CMP, CRP, ANCA #### [place] [phone] eGFR- Amer. >60 Normal [facility] Comment on above: Performed By: #### T SH, CBCDIF, WSR, CANBLL, PANBLL, CMP, CRP, ANCA #### [place] [phone] eGFR-All Other Races >60 Normal [facility] Comment on above: Result Comment: eGFR (Estimated GFR) Units of measure: mL/min/1.73 meters squared eGFR is derived from the reexpressed MDRD Study equation using the following parameters: serum creatinine, age, gender and race. The creatinine assay has been calibrated to be traceable to IDMS. An eGFR <60 mL/min/1.73m2 for >3 months is consistent with chronic kidney disease. Refer to KDOQI guidelines for clinical interpretation. In patients with unstable renal function, e.g. those with acute kidney injury, the eGFR may not accurately reflect actual GFR. Note: On 05/06/2021, the eGFR calculation will be updated to the NKF-ASN Task Force recommended 2020 CKD-EPI creatinine equation which does not include a race variable. For more information or to access a 2020 CKD-EPI calculator, visit the National Kidney Foundation website at kidney.org/professionals/kdoqi/gfr_calculator. Performed By: #### T SH, CBCDIF, WSR, CANBLL, PANBLL, CMP, CRP, ANCA #### [facility] [address] [place], [place] [address] Glucose [Mass/Vol] 96 mg/dL Normal 74-99 [facility] Comment on above: Result Comment: The [place] Diabetes Association (ADA) provides guidance for cutoff values for fasting glucose and random glucose. The ADA defines fasting as no caloric intake for at least 8 hours. Fasting plasma glucose results between 100 to 125 mg/dL indicate increased risk for diabetes (prediabetes). Fasting plasma glucose results greater than or equal to 126 mg/dL meet the criteria for diagnosis of diabetes. In the absence of unequivocal hyperglycemia, results should be confirmed by repeat testing. In a patient with classic symptoms of hyperglycemia or hyperglycemic crisis, random plasma glucose results greater than or equal to 200 mg/dL meet the criteria for diagnosis of diabetes. Reference: Standards of Medical Care in Diabetes 2016, [place] Diabetes Association. Diabetes Care. 2016.39(Suppl 1). Performed By: #### T SH, CBCDIF, WSR, CANBLL, PANBLL, CMP, CRP, ANCA #### [facility] [address] [place], [place] [address] Potassium [Moles/Vol] 4.1 mmol/L Normal 3.7-5.1 [facility] Comment on above: Performed By: #### T SH, CBCDIF, WSR, CANBLL, PANBLL, CMP, CRP, ANCA #### [facility] [address] [place], [place] [address] Protein [Mass/Vol] 7.1 g/dL Normal 6.3-8.0 [facility] Comment on above: Performed By: #### T SH, CBCDIF, WSR, CANBLL, PANBLL, CMP, CRP, ANCA #### [facility] [address] [place], [place] [address] Sodium [Moles/Vol] 141 mmol/L Normal 136-144 [facility] Comment on above: Performed By: #### T SH, CBCDIF, WSR, CANBLL, PANBLL, CMP, CRP, ANCA #### [place] [address] [place] [id number] Urea nitrogen [Mass/Vol] 11 mg/dL Normal 7-21 [facility] Comment on above: Performed By: #### T SH, CBCDIF, WSR, CANBLL, PANBLL, CMP, CRP, ANCA #### [place] [address] PANCA Reflexon 04-07-2021 PANCA Reflex Billed for services performed Normal [facility] Comment on above: Performed By: #### T SH, CBCDIF, WSR, CANBLL, PANBLL, CMP, CRP, ANCA #### [place] [id number] Sed Rate Westergrenon 2021 Sed Rate Westergren 2 mm/hr Normal 0-20 [facility] Comment on above: Performed By: #### T SH, CBCDIF, WSR, CANBLL, PANBLL, CMP, CRP, ANCA #### [place] [id number] TSHon 04-07-2021 TSH Qn 1.770 m[IU]/L Normal 0.270-4.200 [facility] Comment on above: Result Comment: If t he patient is , TSH reference range varies by gestational period: First Trimester (weeks 9-12): 0.180-2.990 mcIU/mL Second Trimester: 0.110-3.980 mcIU/mL Third Trimester: 0.480-4.710 mcIU/mL Garcia Stuart et al. A Practical Approach for the Verifications and Determination of Site- and Trimester-Specific Reference Intervals for Thyroid Function tests in . Thyroid, 2019:29:3:412-420. Juan Perez, et al. 2017 Guidelines of the [place] Thyroid Association for the Diagnosis and Management of Thyroid Disease during and the . Thyroid, 2017:27:3:315-389. Performed By: #### T SH, CBCDIF, WSR, CANBLL, PANBLL, CMP, CRP, ANCA #### [facility] [address] [place], [place] [address] CNPNupur 04-04-2021 CNPN Telephone (RHEUMN) CHRYSTAL TERAN ([id number]) 1985 F Date Time Provider Department 04/04/21 QUINN LEVIN During your visit today, we recorded the following information about you: Mireille Sung 04/04/2021 12:18 PM Signed Records received from Dr. Hewitt at [facility] for upcoming appt w/ Dr. Frandy Garza on Apr 07 Records scanned to chart. Allergies As of Date: 04/04/2021 (No Known Allergies) Date Reviewed: 07/07/2009 Reviewed by: Rosa Isela Mitchell Ma - Reviewed Reason for Visit: Received Outside Medical Records [[id number]] Prescriptions as of 04/04/2021 - MULTIVITAMIN TAB Take one(1) tablet daily. Problem List As Of Date 04/04/2021 Noted Resolved Anemia [D64.9] 01/03/2009 Encounter Status:Closed by MIREILLE MARX on 04/04/21 Normal [facility] CNPNupur 02-22-2021 CNPN Telephone (ORQ) CHRYSTAL TERAN ([id number]) 1985 F Date Time Provider Department 02/22/21 LILI PRECIADO During your visit today, we recorded the following information about you: Nayla Irwin 02/22/2021 8:47 AM Signed Per message waitlist leave detailed VM rfv GPA (Granulomatosis with Polyangiitis) LAYO NEW VASCULITIS [[id number]] All patients must be scheduled within 5 business days, send TRIAGE to department. no appts pulling Block match required for LAYO NEW VASCULITIS but not enough providers with matching blocks could be found. DECLINED ALL OTHER PROVIDER PLEASE CALL TO SCHEDULE Radha Haro 02/28/2021 12:25 PM Signed Patient is scheduled as requested below. Allergies As of Date: 02/22/2021 (No Known Allergies) Date Reviewed: 07/07/2009 Reviewed by: Rosa Isela Mitchell Ma - Reviewed Reason for Visit: Appointment [[id number]] Prescriptions as of 03/01/2021 - MULTIVITAMIN TAB Take one(1) tablet daily. Problem List As Of Date 02/22/2021 Noted Resolved Anemia [D64.9] 01/03/2009 Encounter Status:Closed by FARTUN HENNING on 03/01/21 Normal [facility] Vital Signs Date Time Vital Sign Value Performing Clinician Facility 01-09-2024 15:48-0400 Body mass index (BMI) [Ratio] 24.87 kg/m2 [employer] DO Work Phone: [facility] 01-09-2024 15:48-0400 Body weight 61.69 kg [employer] DO Work Phone: [facility] 01-09-2024 15:48-0400 Diastolic blood pressure 74 mm[Hg] [employer] DO Work Phone: [facility] 01-09-2024 15:48-0400 Systolic blood pressure 122 mm[Hg] [employer] DO Work Phone: [facility] 09-18-2023 09:48-0400 Body mass index (BMI) [Ratio] 23.65 kg/m2 Tayla Mazariegos MD, PhD Work Phone: [facility] 09-18-2023 09:48-0400 Body temperature 98.6 [degF] Tayla Mazariegos MD, PhD Work Phone: [facility] 09-18-2023 09:48-0400 Body weight 58.65 kg Tayla Mazariegos MD, PhD Work Phone: 8(184)988-774024 [place] [address] 09-18-2023 09:48-0400 Diastolic blood pressure 84 mm[Hg] Tayla Mazariegos MD, PhD Work Phone: 5(194)322-331824 [place] [address] 09-18-2023 09:48-0400 Heart rate 113 /min Tayla Mazariegos MD, PhD Work Phone: 4(021)929-72[address] [place] [address] 09-18-2023 09:48-0400 Systolic blood pressure 132 mm[Hg] Tayla Mazariegos MD, PhD Work Phone: 0(277)[phone] [place] [address] 08-25-2023 10:46-0400 Body temperature 97.81 [degF] Bebeto MCFADDEN Work Phone: 8(269)422-261924 [place] [address] 08-25-2023 10:46-0400 Diastolic blood pressure 62 mm[Hg] Bebeto MCFADDEN Work Phone: 3(635)087-151424 [place] [address] 08-25-2023 10:46-0400 Heart rate 76 /min Bebeto MCFADDEN Work Phone: 9(778)676-523424 [place] [address] 08-25-2023 10:46-0400 Respiratory rate 12 /min Bebeto MCFADDEN Work Phone: 9(360)528-807524 [place] [address] 08-25-2023 10:46-0400 SaO2% (BldA) [Mass fraction] 97 % Bebeto MCFADDEN Work Phone: [facility] 08-25-2023 10:46-0400 Systolic blood pressure 111 mm[Hg] Bebeto MCFADDEN Work Phone: 8(641)153-439924 [place] [address] 08-23-2023 07:42-0400 Body height 157.5 cm Bebeto Balderrama [facility] Work Phone: [facility] 08-23-2023 07:42-0400 Body mass index (BMI) [Ratio] 23.59 kg/m2 Bebeto Balderrama [facility] Work Phone: [facility] 08-23-2023 07:42-0400 Body weight 58.51 kg Bebeto Balderrama [facility] Work Phone: [facility] 06-24-2023 17:10-0400 Diastolic blood pressure 78 mm[Hg] Tayla Mazariegos MD, PhD Work Phone: 1(700)107-443048 [address] 06-24-2023 17:10-0400 Systolic blood pressure 115 mm[Hg] Tayla Mazariegos MD, PhD Work Phone: 5(327)002-310248 [address] 06-10-2023 08:28-0400 Diastolic blood pressure 83 mm[Hg] Naseem Bagley MD Work Phone: [facility] 06-10-2023 08:28-0400 Heart rate 95 /min Naseem Bagley MD Work Phone: [facility] 06-10-2023 08:28-0400 Systolic blood pressure 128 mm[Hg] Naseem Bagley MD Work Phone: [facility] 06-10-2023 08:27-0400 Body height 157.5 cm Naseem Bagley MD Work Phone: [facility] 06-10-2023 08:27-0400 Body mass index (BMI) [Ratio] 24.66 kg/m2 Naseem Bagley MD Work Phone: [facility] 06-10-2023 08:27-0400 Body temperature 98.2 [degF] Naseem Bagley MD Work Phone: [facility] 06-10-2023 08:27-0400 Body weight 61.15 kg Naseem Bagley MD Work Phone: [facility] 06-10-2023 07:28-0400 Diastolic blood pressure 87 mm[Hg] Tayla Mazariegos MD, PhD Work Phone: [facility] 06-10-2023 07:28-0400 Heart rate 105 /min Tayla Mazariegos MD, PhD Work Phone: [facility] 06-10-2023 07:28-0400 Systolic blood pressure 129 mm[Hg] Tayla Mazariegos MD, PhD Work Phone: [facility] 06-10-2023 07:25-0400 Body height 157.5 cm Tayla Mazariegos MD, PhD Work Phone: [facility] 06-10-2023 07:25-0400 Body mass index (BMI) [Ratio] 24.66 kg/m2 Tayla Mazariegos MD, PhD Work Phone: [facility] 06-10-2023 07:25-0400 Body temperature 98.2 [degF] Tayla Mazariegos MD, PhD Work Phone: [facility] 06-10-2023 07:25-0400 Body weight 61.15 kg Tayla Mazariegos MD, PhD Work Phone: [facility] 07-11-2021 16:08-0400 Diastolic blood pressure 64 mm[Hg] Tonia Morin Work Phone: [facility] Work Phone: 07-11-2021 16:08-0400 Systolic blood pressure 118 mm[Hg] Tonia Morin Work Phone: [facility] Work Phone: 07-11-2021 15:57-0400 Body height 157.48 cm Tonia Morin Work Phone: [facility] Work Phone: 07-11-2021 15:57-0400 Body mass index (BMI) [Ratio] 24.51 kg/m2 Tonia Morin Work Phone: [facility] Work Phone: 07-11-2021 15:57-0400 Body surface area Derived from formula 1.61 m2 Tonia Morin Work Phone: [facility] Work Phone: 07-11-2021 15:57-0400 Body weight 60.78 kg Tonia Morin Work Phone: [facility] Work Phone: 02-28-2021 16:00-0500 Body height 157.48 cm Tonia Morin Other [facility] Other 02-28-2021 16:00-0500 Body mass index (BMI) [Ratio] 24.43 kg/m2 Tonia Morin Other [facility] Other 02-28-2021 16:00-0500 Body temperature 98.8 [degF] Tonia Morin Other [facility] Other 02-28-2021 16:00-0500 Body weight 60.6 kg Tonia Morin Other [facility] Other 02-28-2021 16:00-0500 Diastolic blood pressure 80 mm[Hg] Tonia Morin Other [facility] Other 02-28-2021 16:00-0500 Respiratory rate 18 /min Tonia Morin Other [facility] Other 02-28-2021 16:00-0500 SaO2% (BldA) [Mass fraction] 98 % Tonia Morin Other [facility] Other 02-28-2021 16:00-0500 Systolic blood pressure 118 mm[Hg] Tonia Morin Other [facility] Other Encounters Encounter Date Encounter Type Care Provider Facility Start: 01-09-2024 End: 01-09-2024 Patient encounter status May Thomas DO Work Phone: [facility] Start: 01-09-2024 End: 01-09-2024 Periodic preventive med est patient 18-39 yrs May Perez Zainabtara DO Work Phone: [facility] Comment on above: Encounter for gyneco logical examination without abnormal finding; Screening for malignant neoplasm of cervix; Encounter for surveillance of contraceptive pills Start: 01-09-2024 End: 01-09-2024 ambulatory MAY THOMAS Not Available Start: 09-18-2023 End: 09-18-2023 Postop follow up visit related to original px Tayla Mazariegos MD, PhD Work Phone: [facility] Comment on above: Donor, kidney (Prima ry Dx) Start: 09-18-2023 ambulatory [facility] Facility:[facility] Start: 08-23-2023 End: 08-25-2023 Evaluation and management of inpatient Bebeto MCFADDEN Work Phone: [facility] Comment on above: Kidney donor Start: 08-12-2023 ambulatory [facility] Facility:[facility] Start: 08-12-2023 End: 08-12-2023 Subsequent hospital visit by physician Tayla Mazariegos MD, PhD Work Phone: [facility] Comment on above: Arrived Start: 08-12-2023 ambulatory FATOU [place]:[facility] Start: 06-24-2023 End: 06-24-2023 Subsequent hospital visit by physician Tayla Mazariegos MD, PhD Work Phone: [facility] Comment on above: Arrived Start: 06-24-2023 ambulatory [facility] Start: 06-10-2023 End: 06-10-2023 Office outpatient new 60 minutes Naseem Bagley MD Work Phone: [facility] Comment on above: Kidney living donor evaluation, pre-op (Primary Dx); Kidney donor Start: 06-10-2023 End: 06-10-2023 Patient encounter status Naseem Bagley MD Work Phone: [facility] Work Phone: Start: 06-10-2023 End: 06-10-2023 Patient encounter procedure Tayla Mazariegos MD, PhD Work Phone: [facility] Comment on above: Kidney donor (Primar y Dx) Start: 06-10-2023 End: 06-10-2023 Subsequent hospital visit by physician Tayla Mazariegos MD, PhD Work Phone: [facility] Comment on above: Arrived Start: 06-10-2023 ambulatory TAYLA MAZARIEGOS Facility:[facility] Start: 03-06-2023 End: 03-06-2023 ambulatory FATOU MARR Not Available Start: 11-22-2022 End: 11-22-2022 ambulatory Wes Chaves Facility:[facility] Start: 11-22-2022 End: 11-22-2022 ambulatory DO Tonia Morin Work Phone: [facility] Work Phone: Start: 11-22-2022 End: 11-22-2022 Departed Referred DO Tonia Morin Work Phone: [facility] Work Phone: Start: 04-16-2022 End: 04-16-2022 ambulatory Tonia Morin Other [facility] Other Start: 04-16-2022 Telephone encounter Tonia Mikel [facility] Start: 02-24-2022 End: 02-25-2022 ambulatory [facility] Facility: Start: 01-30-2022 End: 01-31-2022 ambulatory [facility] Facility: Start: 12-26-2021 End: 12-27-2021 ambulatory [facility] Facility: Start: 07-12-2021 Chart Update Tonia B Sajan rs Work Phone: [facility] Work Phone: Start: 07-11-2021 Patient encounter procedure Tonia Morin Work Phone: [facility] Work Phone: Start: 04-17-2021 Encounter for genera l adult medical examination without abnormal findings [facility] Start: 04-15-2021 End: 04-16-2021 ambulatory [facility] Facility: Start: 04-15-2021 End: 04-16-2021 Encounter for general adult medical examination without abnormal findings [facility] Facility: Start: 02-28-2021 End: 02-28-2021 ambulatory Tonia Morin Other [facility] Other Start: 02-28-2021 Encounter for genera l adult medical examination without abnormal findings Tonia Mikel [facility] Start: 02-28-2021 Periodic preventive med est patient 18-39 yrs Tonia Morin [facility] Start: 02-20-2018 Patient encounter procedure MICHELINE DENNEYNIKOS Facility:[id number] Procedures Date Procedure Procedure Detail Performing Clinician Start: 09-18-2023 CBC AND ELECTRONIC DIFF Tayla Mazariegos MD, PhD Work Phone: Start: 09-18-2023 Complete blood count with white cell differential, automated Tayla Mazariegos MD, PhD Work Phone: Start: 09-18-2023 Creatinine blood Tayla chino MD, PhD Work Phone: Start: 09-18-2023 Urnls dip stick/tabl et reagent auto microscopy Tayla Mazariegos MD, PhD Work Phone: Start: 08-25-2023 Creatinine blood Libby MCFADDEN Work Phone: Start: 08-24-2023 Blood count hematocrit Steven Llanos MD Work Phone: Start: 08-23-2023 RUBENS AURIS SCREEN BY PCR Charu Lyon Pepe GRAIN 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 Work Phone: Start: 08-23-2023 US Unspecified body region Mar Barragan MD Work Phone: Start: 08-23-2023 CARDIAC RHYTHM Other Ot her Start: 08-23-2023 PRE-TX LIVING DONOR ACD SAMPLE (TISSUE TYPING) Anum Marsh PA-C Work Phone: Start: 08-23-2023 PRE-TX LIVING DONOR SERUM SAMPLE Anum ISABEL-Constantine Work Phone: Start: 08-23-2023 Gonadotropin chorion ic qualitative Bebeto MCFADDEN Work Phone: Start: 08-12-2023 Radiologic exam ches t 2 views Tayla Mazariegos MD, PhD Work Phone: Start: 08-12-2023 Antibody screen NASEEM VILLASENOR Comment on above: Performed By: #### P TPTT #### [facility] [address] [place] [address] Start: 06-24-2023 Mri abdomen w/o & w/contrast material Tayla Mazariegos MD, PhD Work Phone: Start: 06-24-2023 Radiologic exam ches t 2 views Naseem Bagley MD Work Phone: Start: 06-10-2023 CBC AND ELECTRONIC DIFF Naseem Bagley MD Work Phone: Start: 06-10-2023 Complete blood count with white cell differential, automated Naseem Bagley MD Work Phone: Start: 06-10-2023 Comprehensive metabo lic panel Naseem Bagley MD Work Phone: Start: 06-10-2023 Hla class i&ii low h la-a -b -c -drb1/3/4/5&dqb Tayla Mazariegos MD, PhD Work Phone: Start: 06-10-2023 Immunoassay tumor an tigen quantitative ca 125 Tayla Mazariegos MD, PhD Work Phone: Start: 06-10-2023 TXP LIVING DONOR Naseem Bagley MD Work Phone: Start: 06-10-2023 Urnls dip stick/tabl et reagent auto microscopy Naseem Bagley MD Work Phone: Start: 12-18-2022 Microscopic observat ion [Identifier] in Cervix by Cyto stain May Thomas DO Work Phone: Appendectomy Tonia Blanchard s Work Phone: Tonsillectomy Tonia Moeller rs Work Phone: Plan of Treatment Date Care Activity Detail Author Start: 12-19-2027 Screening for malign ant neoplasm of cervix [facility] Start: 12-18-2025 Screening for malign ant neoplasm of cervix Pap Smear [facility] Start: 08-25-2025 End: 08-25-2025 Patient encounter procedure 08/25/2025 10:00 AM EDT Office Visit [facility] [address] [place] [address] May Thomas DO [address] [place] [address] [facility] Start: 02-25-2024 End: 02-25-2024 Patient encounter procedure 02/25/2024 3:00 PM EST Office Visit [facility] [address] [place] [address] Fatou Marr, DO [address] [place] [address] [facility] Start: 11-10-2023 Influenza vaccination [facility] Start: 09-18-2023 End: 09-17-2024 URINALYSIS REFLEX TO CULTURE [facility] Comment on above: Expected: 09/18/2023 , Expires: 09/17/2024 Start: 09-18-2023 End: 09-18-2023 Patient encounter procedure 09/18/2023 10:00 AM EDT Office Visit [facility] [address] [place] [id number] Natanael Kay MD, PhD [address] [place] [address] [facility] Start: 08-23-2023 End: 08-23-2023 Laparoscopy donor nephrectomy living donor DONOR NEPHRECTOMY LIVING DONOR LAPAROSCOPIC Kidney donor 08/23/2023 11:35 AM EDT [facility] Start: 08-23-2023 End: 08-23-2023 Evaluation and management of inpatient [facility] Comment on above: Kidney donor DONOR NEPHRECTOMY LI VING DONOR LAPAROSCOPIC Start: 06-24-2023 Subsequent hospital visit by physician 06/24/2023 7:40 PM EDT Hospital Encounter Imaging [facility] [address] [place] [id number] Tayla Mazariegos MD, PhD [address] [place] [address] Imaging [facility] Start: 06-10-2023 End: 05-26-2024 XR Chest PA and Lateral XR CHEST PA AND LATERAL 2 VIEWS Imaging Routine Kidney donor Expected: 06/10/2023, Expires: 05/26/2024 [facility] Comment on above: Expected: 06/10/2023 , Expires: 05/26/2024 Start: 05-27-2023 End: 05-26-2024 DONOR T&B FLOW CROSSMATCH DONOR T&B FLOW CROSSMATCH Lab Routine Kidney donor Expected: 05/27/2023, Expires: 05/26/2024 [facility] Comment on above: Expected: 05/27/2023 , Expires: 05/26/2024 Start: 05-27-2023 End: 05-26-2024 HLA TYPING (SOLID ORGAN) HLA TYPING (SOLID ORGAN) Lab Routine Kidney donor Expected: 05/27/2023, Expires: 05/26/2024 [facility] Comment on above: Expected: 05/27/2023 , Expires: 05/26/2024 Start: 05-27-2023 End: 05-26-2024 Standard ECG ECG ECG Routine Kidney donor Expected: 05/27/2023, Expires: 05/26/2024 [facility] Work Phone: Comment on above: Expected: 05/27/2023 , Expires: 05/26/2024 Start: 11-09-2022 COVID-19 VACCINE ( season) COVID-19 VACCINE () [facility] Start: 02-07-2009 Tetanus vaccination TETANUS [facility] Start: 05-29-2008 Screening for malign ant neoplasm of cervix CERVICAL CANCER SCREENING DISCUSSION [facility] Start: 05-29-2006 Third diphtheria, tetanus and acellular pertussis (DTaP) vaccination TDAP (ADULT) [facility] Start: 05-29-2002 HIV screening HIV SCREENING DISCUSSION [facility] Start: 1987 Hepatitis C screening HEPATITI S C VIRUS SCREENING [facility] End: 06-09-2023 CT angiography of renal artery [facility] Work Phone: Comment on above: 1 Occurrences starti ng 06/09/2023 until 06/09/2023 DONOR T&B FLOW CROSSMATCH DONOR T&B FLOW CROSSMATCH Lab Routine Kidney donor 06/10/2023 10:47 AM EDT [facility] EXTRA 24 HR URINE TUBE EXTRA 24 HR URINE TUBE Lab Routine Kidney donor 06/10/2023 10:47 AM EDT [facility] EXTRA MICRO EXTRA MICRO Flui ds Routine Donor, kidney 09/18/2023 10:04 AM EDT [facility] EXTRA TUBES EXTRA TUBES Lab Routine Kidney donor 06/10/2023 10:47 AM EDT [facility] HLA TYPING (SOLID ORGAN) HLA TYPING (SOLID ORGAN) Lab Routine Kidney donor 06/10/2023 10:47 AM EDT [facility] OXALATE, 24HR URINE OXALATE, 24H R URINE Fluids Routine Kidney donor 06/10/2023 10:47 AM [facility] SENDOUT TEST MISCELLANEOUS [facility] SENDOUT TEST MISCELLANEOUS [facility] Lab Routine Screening for malignant neoplasm of cervix Ordered: 01/09/2024 [facility] Work Phone: Comment on above: Ordered: 01/09/2024 Immunizations Immunization Date Immunization Notes Care Provider [facility] 07-01-2009 human papilloma viru s vaccine, quadrivalent May Rinkes DO Work Phone: [facility] 02-28-2009 human papilloma viru s vaccine, quadrivalent May Rinkes DO Work Phone: [facility] 12-24-2008 human papilloma viru s vaccine, quadrivalent May Rinkes DO Work Phone: [facility] 12-24-2008 influenza virus vaccine, unspecified formulation Tayla Mazariegos MD, PhD Work Phone: [facility] 08-10-1999 hepatitis B vaccine, pediatric or pediatric/adolescent dosage Tonia Morin Work Phone: [facility] Work Phone: 03-09-1999 hepatitis B vaccine, pediatric or pediatric/adolescent dosage Tonia Morin Work Phone: [facility] Work Phone: 02-07-1999 hepatitis B vaccine, pediatric or pediatric/adolescent dosage Tonia Morin Work Phone: [facility] Work Phone: 02-07-1999 measles, mumps and rubella virus vaccine Tonia Morin Work Phone: [facility] Work Phone: 02-07-1999 tetanus and diphther ia toxoids, adsorbed, preservative free, for adult use (5 Lf of tetanus toxoid and 2 Lf of diphtheria toxoid) Tonia Morin Work Phone: [facility] Work Phone: 07-04-1992 diphtheria, tetanus toxoids and pertussis vaccine Tonia Morin Work Phone: [facility] Work Phone: 07-04-1992 trivalent poliovirus vaccine, live, oral Tonia Morin Work Phone: [facility] Work Phone: 11-14-1990 diphtheria, tetanus toxoids and pertussis vaccine Tonia Morin Work Phone: [facility] Work Phone: 11-14-1990 trivalent poliovirus vaccine, live, oral Tonia Morin Work Phone: [facility] Work Phone: 12-04-1988 haemophilus influenz ae type b vaccine, HbOC conjugate Tonia Morin Work Phone: [facility] Work Phone: 10-31-1988 measles, mumps and rubella virus vaccine Tonia Morin Work Phone: [facility] Work Phone: 1985 diphtheria, tetanus toxoids and pertussis vaccine Tonia Terrie Morin Work Phone: [facility] Work Phone: 1987 diphtheria, tetanus toxoids and pertussis vaccine Tonia B Morin Work Phone: [facility] Work Phone: 1987 trivalent poliovirus vaccine, live, oral Tonia B Morin Work Phone: [facility] Work Phone: 1987 diphtheria, tetanus toxoids and pertussis vaccine Tonia B Mikel Work Phone: [facility] Work Phone: 1987 trivalent poliovirus vaccine, live, oral Tonia B Omrin Work Phone: [facility] Work Phone: Payers Date Payer Category Payer Unknown [id number] 2023 Unknown [id number] 2022 Self-pay 2022 Private Health Insurance [id number] 2020 Unknown 2020 Unknown [id number] 1987 Unknown [id number] 1987 Unknown [id number] 1987 Unknown [id number] [id number] 1987 Unknown [id number] [id number] 1987 Unknown [id number] [id number] 1987 Unknown [id number] [id number] 9 1987 Unknown [id number] [id number] 9 1959 Unknown [id number] Unknown [id number] [id number] Unknown [id number] [id number] Unknown [id number] [id number] Unknown [id number] [id number] Unknown [id number] [id number] Unknown [id number] [id number] Unknown [id number] [id number] Unknown [id number] [id number] Unknown [id number] [id number] Unknown [id number] [id number] Unknown [id number] [id number] Unknown HCAP/HFA/FAP Active [id number] Social History Date Type Detail Facility Start: 03-06-2023 End: 05-10-2023 Never a smoker Never a smoker [facility] Other Start: 03-06-2023 End: 05-10-2023 Sex Assigned At [facility] Other Start: 10-27-2018 End: 11-08-2022 Tobacco smoking status NHIS Never smoked tobacco (finding) [facility] Start: 1985 Sex Assigned At Female [facility] Start: 11-08-2022 End: 05-10-2023 Tobacco use and exposure Smokeless tobacco non-user [facility] Start: 06-10-2023 End: 01-09-2024 Alcoholic beverage intake Ex-drinker (finding) [facility] Start: 1985 Sex assigned at Not on file [facility] Start: 12-12-2022 Alcohol Comment Caffeine intake: none [facility] Start: 11-08-2022 Gender identity Identifies as female gender (finding) [facility] Start: 11-08-2022 Sexual orientation Heterosexual (finding) [facility] Clinical Notes 02-28-2021 to 01-09-2024 May Thomas, - 01/09/2024 4:00 PM Luis Herrera RN - 09/18/2023 10:00 AM Nora Mazariegos MD, PhD - 09/18/2023 10:00 AM BOB Quintero - 09/18/2023 10:00 AM EDTPatient Instructions Note Date & Type Note Facility 01-09-2024 History of Present illness Narrative Images from the original note were not included. May Thomas D.O. 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 Pt would like to discuss control.Pt happy with current OCP. Menses silent with OCP, take OCP continuously. Denies bowel/bladder/breast concerns. Visit Vitals BP 122/74 Wt 136 lb BMI 24.87 kg/m Smoking Status Never BSA 1.64 m No Known Allergies History of Present Illness, Associated Treatments and Results - OB History Para Term AB Living 0 0 0 0 0 0 SAB IAB Ectopic Multiple Live Births 0 0 0 0 0 Obstetric Comments Pap smear 12/13/22 wnl Review of Systems - General: Chills denies. Allergy/Immunology: Rash Denies. ENT: Denies Difficulty swallowing. Endocrine: Denies Cold intolerance denies. Heat intolerance denied. Respiratory: Denies Chest pain denies. Shortness of breath denies. Breast: Denies Bloody nipple discharge denies. Breast lump denies. Cardiovascular: Denies Chest pain. Gastrointestinal: Abdominal pain denies. Blood in stool denies. Hematology: Easy bruising denies. Prolonged bleeding denies. Women Only: Breast lump denies. Vaginal bleeding between periods is denied. Vaginal discharge/itching denied. Genitourinary: Blood in urine denies. Painful urination denies. Incontinence denies. Skin: Hair changes. Neurologic: Seizures denied. Stroke denies. Psychiatric: Anxiety denies. Depressed mood denies. Medication Documentation Review Audit Reviewed by Milli Wilde MA ([employer]) on 01/09/24 at 1545 Medication Order Taking? Sig Documenting Provider Last Dose Status acetaminophen (Tylenol) 325 MG tablet [id number] No Take 325 mg by mouth every 6 (six) hours. Take two tablets as needed Historical ProviderMD Taking Active albuterol HFA 90 mcg/act inhaler [id number] No Inhale 2 puffs every 4 (four) hours if needed for wheezing or shortness of breath. Rx'd by Dr. Hewitt Historical Provider, Taking Active ascorbic acid (Vitamin C) 500 MG tablet [id number] No Take 500 mg by mouth in the morning. Fatou Marr DO Taking Active cholecalciferol (Vitamin D-3) 25 MCG (1000 UT) capsule [id number] No Take 1 capsule by mouth 1 (one) time each day at the same time. Historical ProviderMD Taking Active Naboxdnzggg-Udujtgvxw-Lekoux (Trelegy Ellipta) 200-62.5-25 MCG/ACT aerosol powder [id number] No Inhale 1 puff in the morning. Rx'd by Dr. Hewitt. Historical Provider, Taking Active Loestrin /, 21, 1-20 MG-MCG tablet [id number] No Take 1 tablet by mouth in the morning. Take continuous.. May Thomas, Taking Active Melatonin 5 MG sublingual tablet [id number] No Place 5 mg under the tongue as needed at bedtime (sleep issues). Historical Provider, Taking Active Multiple Vitamins-Minerals (MULTIVITAMIN GUMMIES ADULTS PO) [id number] No Take 1 tablet by mouth in the morning. Historical Provider, Taking Active Turmeric 500 MG capsule [id number] No Take 1 tablet by mouth 1 (one) time each day. 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 Hewitt Multiple pulmonary nodules she follows with PULM/XDr Marcelina Periodic limb movement 01/30/2022 PSG done Positive P-ANCA titer per [facility] notes Past Surgical History: Procedure Laterality Date BUNIONECTOMY Bilateral 2016 Right Foot 08/10/2016; Left Foot 09/14/2016 CT ANGIOGRAM PELVIS 06/10/2023 CT ANGIOGRAM PELVIS 06/10/2023 IR INJECTION NERVE BLOCK 08/23/2023 IR INJECTION NERVE BLOCK PELVIC LAPAROSCOPY 2018 Diagnostic laparoscopy PELVIC LAPAROSCOPY 2013 Diagnostic laparoscopy with fulguration of endometriosis: Irregular menstrual cycle SURGICAL PROCUREMENT, KIDNEY, LIVING DONOR Left 08/2023 TONSILLECTOMY Bilateral 05/17/2020 tonsils and adenoids removed Family History Problem Relation Name Age of Onset Arthritis Mother Endometriosis Mother Diverticulosis Mother COPD Father Hypertension Father Coronary artery disease Father Other (susbstance abuse) Father Other (substance abuse) Brother Lupus Mother's Sister Colon cancer Mother's Sister dx in her 40s Lupus Father's Sister Crohn's disease Father's Sister Hypertension Maternal Grandmother Heart disease Maternal Grandmother Arthritis Maternal Grandmother Lupus Maternal Grandmother Hypertension Maternal Grandfather Diabetes Maternal Grandfather Hyperlipidemia Maternal Grandfather Other (bladder cancer) Maternal Grandfather Other (Carcinoma in situ of esphagus) Maternal Grandfather Coronary artery disease Maternal Grandfather Other (liver cancer) Paternal Grandmother Stroke Paternal Grandfather Physical Exam - General appearance, mentation, extraocular movements, facial strength and movement, hearing, upper and lower extremity strength and tone, sensation to gross testing, coordination, and gait are normal or at baseline unless noted below. General Examination: GENERAL APPEARANCE: alert oriented well developed, well nourished. HEAD: normocephalic atraumatic. EYES: sclera anicteric. EARS: no obvious hearing deficit. SKIN: warm and dry. HEART: regular rate and rhythm. LUNGS: clear to auscultation bilaterally. CHEST: axillary nodes grossly normal. BREASTS: no masses palpable bilaterally, normal nipples bilaterally. ABDOMEN: soft, nontender, nondistended, no masses palpable. BACK: no costovertebral angle tenderness, no obvious scoliosis/kyphosis. FEMALE GENITOURINARY: normal vaginal mucosa, cervix absent of lesions, nontender, uterus AV, mobile, ovaries nonpalpable and nontender. EXTREMITIES: no edema. NEUROLOGIC: alert and oriented. PSYCH: cooperative with exam. Diagnoses and all orders for this visit: Encounter for gynecological examination without abnormal finding Screening for malignant neoplasm of cervix - SENDOUT TEST MISCELLANEOUS [facility] Encounter for surveillance of contraceptive pills - norethindrone-ethinyl estradiol (Loestrin 03/30, ,) 1-20 MG-MCG tablet; Take 1 tablet by mouth Daily Take continuous. Pap, pelvic and breast exam completed. Findings of today's exam discussed with the patient. Continue MSBE. Ca/Vit D recommendations reviewed with the patient. The patient is to contact the office with any changes to her gynecological condition. The patient is to return in 1 year or as needed Patient wishing to continue to ANALILIA LoEstrin 03/30. Has tried several other OCPs and unable to take, including generics of Loestrin ICD-10-CM 1. Encounter for gynecological examination without abnormal finding Z01.419 2. Screening for malignant neoplasm of cervix Z12.4 SENDOUT TEST MISCELLANEOUS [facility] 3. Encounter for surveillance of contraceptive pills Z30.41 norethindrone-ethinyl estradiol (Loestrin 03/30, 21,) 1-20 MG-MCG tablet documented in this encounter [facility] 09-18-2023 History of Present illness Narrative Patient denies complaints BM: WNL Urination: WNL Pain: tylenol as needed Activity: good, still increasing NVD: denies Appetite: good Patient denies complaints BM: WNL Urination: WNL Pain: tylenol as needed Activity: good, still increasing NVD: denies Appetite: good Physical Exam: Pulse Readings from Last 1 Encounters: 09/18/23 113 BP Readings from Last 1 Encounters: 09/18/23 132/84 Wt Readings from Last 1 Encounters: 09/18/23 58.7 kg (129 lb 4.8 oz) Estimated body mass index is 23.65 kg/m as calculated from the following: Height as of 08/23/23: 1.575 m (5' 2 ). Weight as of this encounter: 58.7 kg (129 lb 4.8 oz). General Appearance: normal HEENT:normal Respiratory: normal Cardiac: normal Abdomen:normal Extremities:normal Other: Assessment: status post left donor nephrectomy and she is doing well Plan: Labs: today We discussed with patient follow up, blood pressure monitoring and avoiding NSAIDS Lab Letter: Scripts: Current Outpatient Medications Medication Sig Dispense Refill Acetaminophen 325 MG tablet Take 2 tablets by mouth every 6 hours as needed for Mild Pain or Moderate Pain for up to 7 days. Maximum dose 4000 mg from all sources in 24 hours. 56 tablet 0 Ascorbic acid 500 MG tablet Take 1 tablet by mouth daily. Cholecalciferol (Vitamin D-3) 25 MCG (1000 UT) capsule Take 1 capsule by mouth daily. Enoxaparin Sodium 40 MG/0.4ML injection Inject one syringe (0.4 mL) under the skin every 24 hours. 12 mL 0 Knpddcpetbr-Vzvctgjrm-Edtutp 200-62.5-25 MCG/ACT Aerosol Powder, breath activated Inhale 1 puff daily. Multiple Vitamin (multivitamin) capsule Take 1 capsule by mouth daily. norethindrone-ethinyl estradiol (Loestrin 1/, 21,) 1-20 MG-MCG tablet Take 1 tablet by mouth daily. Probiotic Product (PROBIOTIC PO) Take 1 tablet by mouth daily. traMADol 50 MG tablet Take 1 tablet by mouth every 6 hours as needed for Moderate Pain (First line pain) for up to 7 days. 28 tablet 0 No current facility-administered medications for this visit. Ms. Mason is scheduled to [facility] on Visit date not found MOOSE met with pt during her first post-donation clinic appointment on 09/18/2023. Patient donated to her friend on 08/23/2023. Patient stated that she feels positive about being able to donate. Patient stated that her friend has been doing well. Pt denied experiencing any depression, anxiety or PTSD associated with donating. LDA provided emotional support. Patient was able to receive paid leave while she was off. Patient denied that donating caused her any financial hardship. Patient stated that she feels that donating did not have a negative impact on her life in anyway. MOOSE reminded pt of her follow-up (6months, one year and two years). Patient did not identify any additional questions or concerns. MOOSE provided patient with contact information and encouraged her to call with any needs. documented in this encounter [facility] 09-18-2023 Instructions Prema Herrera RN - 09/18/2023 10:00 AM EDT You may slowly increase activities at tolerated. Stop any activities that cause pain, your body may not be ready. Call donor nurses with names of new medications. Inform your provider your GFR is likely 50-60% at this time. * Most people live normal, healthy lives with one kidney. However, it's important to stay as healthy as possible, and protect the only kidney you have * Lifelong avoidance of NSAIDS ( Motrin, Ibuprofen, Advil, Aleve, Naprosyn and certain arthritis medications) * It is OK to use Tylenol and occasional Aspirin * Seek prompt treatment of UTI or kidney stone symptoms ( painful urination, inability to pass urine, pelvic pain, pain in mid back on side of remaining kidney, urine that does not look or smell normal, bloody or dark urine) * Check blood pressure every few months and seek prompt evaluation if your blood pressure is greater than 140/85 mmHg * Drink at least 2 liters of fluid daily ( mostly water ) * You will preserve 75% of you pre donation renal function. You will run a slightly higher creatinine reaching a new baseline between 1-2 years post donation * Make sure you see your PCP annually and have a Blood Creatinine and Urine test for protein each year ( We will obtain these at your 6, 12 and 24 month post donation visit ) .........what living donors have in common is that they stepped up to help others live better lives...family, friends, even total strangers. Thank you for your amazing gift!!! documented in this encounter [facility] 08-25-2023 Nurse Note AVS reviewed with pt and family. All questions and concerns answered and addressed. Pt discharged with all personal belongings, accompanied by RN and family, via wheelchair. No barriers to discharge at this time. [facility] 08-25-2023 Miscellaneous Notes AVS reviewed with pt and family. All questions and concerns answered and addressed. Pt discharged with all personal belongings, accompanied by RN and family, via wheelchair. No barriers to discharge at this time. Problem: Oral Intake Inadequate Goal: Improved Oral Intake Outcome: Progressing Nutrition Plan of Care/DISCHARGE PLAN Continue current diet order; Monitor return of bowel function adj bowel regimen assisted avoid protein powders and other protein supplements, encouraged joint terminal attack controller hydration, Encouraged to contact donor transplant team for any issues after discharge; Discharge Planning: Oral Diet Suggestion: Heart Healthy (subject to change based on organ function and labs at discharge) Nutrition education and materials provided to patient and family Provided: Living Kidney Donor Diet Guide and Heart Healthy Eating with the DASH diet RD will continue to follow per clinical protocol and assess further as needed. Should patient discharge this will act as their discharge recommendations Ms. Mason was admitted to [address] [place] [address]. On admission to 0, from PACU a dual RN initial assessment of skin condition was performed by Zakia Moya RN and Batool Corado RN. Skin Assessment: Skin not within defined limits. Abd incision and 2 lap sites with dermabond Mc Score: 20 LDA Added: Yes Based on fall prevention risk stratification tool, patient is at low risk for fall. The following interventions were implemented: Low Risk 0-16 GREEN Call light plugged into bed Fall Color placed above door Gait belt at bedside Education on falls provided. Operative Report DATE PERFORMED: 08/23/23 PREOPERATIVE DIAGNOSIS: Kidney donor POSTOPERATIVE DIAGNOSIS: Kidney donor PROCEDURE PERFORMED Procedure(s) (LRB): Hand assisted Laparoscopic left donor nephrectomy SURGEON: Gamaliel Drake, MBBS Fellow- Steven Llanos MD ANESTHESIA: General endotracheal. COMPLICATION: none ESTIMATED BLOOD LOSS: minimal SPECIMEN: None FINDINGS: DESCRIPTION OF PROCEDURE: The patient was appropriately identified and wheeled into the operating room and placed on the operating table in supine position. A sign-in was conducted. The patient received perioperative prophylactic antibiotics in addition to preoperative immunosuppressive medications. Sequential compression devices were applied to the legs bilaterally. General endotracheal anesthesia was administered without complications. A Belcher catheter was inserted into the bladder under sterile conditions. The abdomen was then prepped and draped in standard sterile fashion. A time-out was conducted. Patient was then placed in left lateral position, patient secured to the table and care taken to cushion all the pressure points. After position abdomen prepped and draped using all sterile precautions. Lower midline incision given, the fascia opened in the midline and peritoneum entered. Rubia wound retractor placed in the incision and gel port applied on top of the rubia wound retractor. Right hand inserted into the abdomen, 12 mm port inserted in the mid clavicular line in sub costal region, 12mm camera port inserted above the umbilicus. The left colon reflected medially from the kidney upto the gonadal vein. Splenic flexure of colon also mobilized. Ureter identified and mobilized. Gonadal vein traced upto the origin from the left renal vein and divided between clips, adrenal vein identified and divided between clips. Kidney mobilized from all sides and adrenal grand from upper pole the kidney with ligasure. Lower polar artery identified and dissected. The main renal vein dissection uptil below the adrenal vein origin. MAIN Renal Artery dissected free from lymphatics and upto origin from aorta. Ureter clipped above the common iliac artery and divided, urine seen spurting out of cut end of ureter. Patient given 3000 U of heparin intraop. Renal vein divided with 45 caldwell vascular stapler. Kidney taken out via lower midline incision. Kidney placed in cold solution and taken to recipient room by the attending surgeon. Heparin was reversed with 30 ml protamine Lower midline peritoneal and fascia closed. Peritoneal cavity inspected for hemostatis. Compete hemostasis achieved. Ports taken out and gas removed from the abdomen. Ports site closed with vicryl 1-0 and skin incisions closed with subcuticular sutures. Abdominal TAP block given by the anesthesia team and patient extubated and shifted to the PACU. I was present in the room throughout the case. Bebeto Balderrama Attending Chrystal Mason ([id number]) PRE OPERATIVE DIAGNOSIS Kidney donor [Z52.4] POST OPERATIVE DIAGNOSIS Kidney donor [Z52.4] PROCEDURE PERFORMED Procedure(s) (LRB): DONOR NEPHRECTOMY LIVING DONOR LAPAROSCOPIC (Left) PRIMARY CLOSURE Yes INTRAOPERATIVE FINDINGS No abnormalities SURGEON Surgeons and Role: * BOGDAN Drake - Primary ANESTHESIOLOGIST Anesthesiologist: Cher Cash MD; Chino Andrews MD HIGH SCHOOL HISTORY TEACHER: ALMA Manrique; ALMA Barney SURGICAL STAFF Twine Reeling Machine Operator: Titus Traore RN Relief Twine Reeling Machine Operator: Sweta Cleary RN Scrub Person: Kyle lEkins Resident Assisting: Manish Naranjo MD Fellow: Steven Llanos MD COMPLICATIONS None ESTIMATED BLOOD LOSS 100 ml SPECIMENS No specimen sent * No specimens in log * OLD JOSE New JOSE [facility] BOGDAN Drake August 23, 2023 2:14 PM Report given to Beverly Sharpe RN SPR documented in this encounter [facility] 08-25-2023 History of Present illness Narrative Images from the original note were not included. [facility] Note: Bedside Delivery Documentation The following prescription(s) were delivered to the nurse's station, Nurse Crystal Cao RN . [facility] ([place]) [phone] [facility] [phone] [facility] Bedside Delivery [phone] [facility] [phone] [facility] Bedside Delivery [phone] [facility] [phone] [facility] Bedside Delivery [phone] [place] [phone] [place] [phone] Images from the original note were not included. [facility] Note: Non-Verbal Med Rec [facility] received the following discharge prescription(s): Total cost is $0. I have reviewed the Discharge Rx Reconciliation Report. The discharge prescription(s) will be delivered to the patient on 08/25/2023. Sabrina Kellogg RPH Specialty ([place]) [phone] [facility] [phone] [facility] Bedside Delivery [phone] [facility] [phone] [facility] Bedside Delivery [phone] [facility] [phone] [facility] Bedside Delivery [phone] [place] [phone] [place] [phone] MOOSE called pt in order to follow-up with her regarding her recent donation. Pt donated to her friend on 08/23/2023. MOOSE left pt a message requesting a return call. Mere NESBITT,AIRPLANE TUBE BUILDER [facility] [phone] TRANSPLANT SURGERY PROGRESS NOTE: Date of Service: 08/25/2023 Admit Date: 08/23/2023 Date of last transplant: 08/23/23 Surgery Post-op Days: 2 Days Post-Op s/p Procedure(s) (LRB): DONOR NEPHRECTOMY LIVING DONOR LAPAROSCOPIC (Left) SUBJECTIVE: NAEON, on RA. Passed void trial. Tolerating RD, passing flatus, denies BM. Denies N/V. Ambulating. Cr stable 1.02 < 1.16. Lovenox teaching completed. Plan: Will need prophylactic lovenox at discharge for 4 weeks post-op while taking OCP for endometriosis. Discharge today. PMH/PSH/ROS: Refer to H&P OBJECTIVE: BP 103/66 (BP Location: Right arm, BP Position: Lying) Pulse 78 Temp 98.8 F (37.1 C) (Oral) Resp 16 Ht 1.575 m (5' 2 ) Wt 58.5 kg (129 lb) SpO2 96% BMI 23.59 kg/m Smoking Status Never Intake/Output Summary (Last 24 hours) at 08/25/2023 0540 Last data filed at 08/25/2023 0529 Gross per 24 hour Intake 4234.36 ml Output 800 ml Net 3434.36 ml Physical Exam: General: No acute distress Neuro: alert and oriented x 3 Cardiovascular: regular rate and rhythm, no murmurs, rubs, gallops Pulmonary: CTAB Abdomen: soft, nondistended incision-clean, dry, intact, appropriate periincisional erythema and tenderness Extremities: warm and well perfused, 2+dp/pt pulses Skin: no lesions Medications: Refer to [facility] Labs: Lab Results Component Value Date WBC 7.52 08/12/2023 HGB 12.8 08/24/2023 HCT 39.9 08/24/2023 PLATELET 351 08/12/2023 MCV 88.5 08/12/2023 Lab Results Component Value Date SODIUM 140 08/12/2023 POTASSIUM 4.0 08/12/2023 CHLORIDE 105 08/12/2023 CO2 25 08/12/2023 BUN 14 08/25/2023 CREATSERUM 1.02 08/25/2023 GLUCOSE 100 (H) 08/12/2023 Lab Results Component Value Date ALT 22 06/10/2023 AST 25 06/10/2023 GGT 16 06/10/2023 ALKPHOS 50 06/10/2023 BILITOTAL 0.5 06/10/2023 BILIDIRECT 0.1 06/10/2023 ASSESSMENT/PLAN 2 Days Post-Op s/p Procedure(s) (LRB): DONOR NEPHRECTOMY LIVING DONOR LAPAROSCOPIC (Left) Blood pressure: continue to monitor Electrolytes: continue to monitor Nutrition: DIET REGULAR Belcher: removed POD1 08/23 Pain adequately controlled on intermittent narcotic IV fluids: discontinued 08/23 Prophylaxis: DVT: subcutaneous heparin/SCDs GI: colace, pepcid/protonix Dispo: home 08/24, lovenox teaching completed Complexity. Any conditions listed below are present on admission unless otherwise specified. . . The plan of care was discussed with the patient and nursing staff. All questions and concerns addressed. These multidisciplinary rounds were represented by transplant surgery including attending surgeon, fellow, advanced practice provider and/or resident, physician care assistant, transplant pharmacy, discharge planning and nursing. Manish Naranjo MD Associated attestation - Trisha Acevedo MD, PhD - 08/25/2023 8:42 PM EDT Transplant Attending Staff Progress and Discharge Note: The patient is 2 Days Post-Op. I interviewed, examined, reviewed records and formulated plans for this patient. I discussed the patient's condition and care plans with the residents, fellows, NELIA and entire care team and agree with the details of the progress note above with the following additions: The patient's VS are stable (BP 111/62 (BP Location: Right arm, BP Position: Lying) Pulse 76 Temp 97.8 F (36.6 C) (Oral) Resp 12 Ht 1.575 m (5' 2 ) Wt 58.5 kg (129 lb) SpO2 97% BMI 23.59 kg/m Smoking Status Never ). On exam the patient is alert, Lungs clear, CV RRR, abdomen soft nondistended and nontender, incision without sign of infection, LE warm and well perfused. Feeling better today, ambulating, eating a regular diet, urinating without difficulty; Has received teaching for Lovenox given to cover continued taking of BCP for endometriosis postop. Her has been taught how to administer it. Postop labs hgb creat good. The patient is alert and comfortable and appropriate for discharge to home. The patient's condition, potential and actual diagnoses have been discussed with the patient. The care plan has been communicated to the patient and care team. All questions have been answered. Trisha Acevedo MD PhD Clinical Reclamation Supervisor (CCM) Post-Operative Assessment of Discharge Needs for Living Donor Assessment Patient presented to hospital for kidney donation surgery on 08/23/23. She is independent with activities of daily living, including driving. Patient's primary support person at discharge will be spouse and mother. CCM did review demographic sheet with the patient to confirm accuracy. Outside services: Not Applicable Provided by: Not Applicable Durable medical equipment: None. Medical supplies: None. Patient Care Team: Fatou Marr DO as PCP - General (Internal Medicine) Other [facility] as PCP - X Ray Technologist (Transplant) Financial Patient is employed full-time. Patient denies financial concerns related to taking time off from work related to her organ donation. Post-Operative Appointments & Medications Follow-Up Appointments scheduled by the [facility]. CCM has reviewed the patient's chart to confirm appointments are reflected. Patient was reminded to grain picker discharge transplant medications from the outpatient [facility]. Discharge Plan Prior to admission she was living with her . Patient will discharge home with the support of her and mother. Patient will not need transportation assistance home at discharge. Patient assessment does not identify needs by the clinical director of casework at this time. Reconsult Case Management if discharge needs arise. Gardenia BRADFORD RN Clinical Reclamation Supervisor Please note that I am a float director of casework and may not cover the same service every day. Please call the main Case Management office at [phone] for up-to-date coverage. Verified patients identity using date of . Appropriate PPE utilized. NUTRITION CONSULT FOR DONOR NEPHRECTOMYASSESSMENT & EDUCATION Nutrition Plan of Care/DISCHARGE PLAN Continue current diet order; Monitor return of bowel function adj bowel regimen intermediate project manager avoid protein powders and other protein supplements, encouraged joint terminal attack controller hydration, Encouraged to contact donor transplant team for any issues after discharge; Discharge Planning: Oral Diet Suggestion: Heart Healthy (subject to change based on organ function and labs at discharge) Nutrition education and materials provided to patient and family Provided: Living Kidney Donor Diet Guide and Heart Healthy Eating with the DASH diet RD will continue to follow per clinical protocol and assess further as needed. Should patient discharge this will act as their discharge recommendations Thanks Dipika Arellano, MS, RD, LD Pager: [phone] For up to date coverage please see [employer] schedule for Dietitian Stone Rougher or Dietitian Weekends/Holidays Schedule. Thank you. 08/24/23Pt seen for inpatient nutrition assessment: POD#1; BMI Class normal; Reason for Admission/History of Present Illness: Per team notes, Chrystal Mason is a 38 y.o. female s/p donor nephrectomy 08/23/23 Past Medical History: Diagnosis Date Asthma Endometriosis Past Surgical History: Procedure Laterality Date BUNIONECTOMY Bilateral LAPAROSCOPY ABDOMEN PERITONEUM OMENTUM DIAGNOSTIC TONSILLECTOMY ADENOIDECTOMY No Known Allergies Nutrition History: Transplant Donor Screen completed 06/11/23 08/23/23 Nutrition Risk Screening (MST) Have you recently lost weight without trying?: 0- no Have you been eating poorly because of decreased appetite?: 0- No Malnutrition Screening Tool Score: 0 Met w/ patient this morning; family arrived at bedside; no problems with appetite prior to admission; eating healthier; lean proteins, more fruits/vegetables; no added salt; occ uses protein powder for a meal replacement at breakfast- discussed using whole foods like yogurt, peanut butter- PB2 powder instead of protein powder; reviewed spark energy drink from [employer] and discussed avoiding r/t vitamin/mineral supplementation significantly above 100%; uses a fiber supplement and may use an [employer] rehydration powder; Activity some recombinat bike, weights, large piece of property; Denies N/V especially since able to eat now; denies diarrhea/constipation prior to admission; Food Allergies: NKFA 08/24/23 Current Diet Orders Procedures DIET REGULAR Standing Status: Standing Number of Occurrences: 1 Assessments Edema: none noted Gastrointestinal:WDL except abd tender, hypoactive BSx4; LBM? Enteral Access: none Skin Mc Score: 20 Wound Incision 08/23/23 1223 Abdomen (1) Labs: Latest Reference Range & Units 08/24/23 03:08 BUN 7 - 25 mg/dL 12 Creatinine 0.50 - 1.20 mg/dL 1.16 BUN/CREA RATIO 10 eGFR, CKD-EPI, Female >=60 mL/min/1.73m2 63 Latest Reference Range & Units 04/19/23 07:00 06/10/23 10:47 HDL, MANUAL ENTER 53 LDL, MANUAL ENTER 108 TOTAL CHOLESTERL, MANUAL ENTER 175 TRIGLYCERIDES, MANUAL ENTER 70 HEMOGLOBIN A1C 4.7 - 5.6 % 4.7 HEMOGLOBIN A1C, MANUAL ENTER % 4.8 Current Meds reviewed including: docusate, gabapentin, heparin, scopalamine, senna PRNs reviewed including: morphine*, ondansetron*, simethicone*, tramadol* (*if given on or after 08/23/23) Monitored Food-Drug Interactions: None Continuous Infusions:none Fluid Management:Since Adm Net+2340 ml,UOP 3200 ml Anthropometrics Height: 157.5 cm (5' 2 ) IBW: 50 lg 08/23/23 Admission/Adult (Dosing) Weight: 58.5 kg (129 lb) %IBW: 118% BMI of 23.6kg/mg Wt Readings from Last 10 Encounters: 08/23/23 58.5 kg (129 lb) 08/12/23 59.3 kg (130 lb 12.8 oz) 06/10/23 61.1 kg (134 lb 12.8 oz) 06/10/23 61.1 kg (134 lb 12.8 oz) 04/16/23 60.3 kg (133 lb) Estimated Nutrition Needs Weight Used: other (see comments) (adm wt: 58.5 kg) Energy Requirements (kcal/day): 4669-8955 Kcal/k-33 Protein Requirements (g/day): 45-70 Protein (g/kg): other (see comments) (0.8-1.2) Fluid Requirements (mL): 2000+ Nutrition Focused Physical Exam Subcutaneous Fat Loss: Subcutaneous Fat Loss: Orbital: (WNL) Subcutaneous Fat Loss: Buccal: (WNL) Muscle Wasting: Muscle Wasting: Temples (temporalis): (WNL) Muscle Wasting: Clavicles (pectoralis & deltoids): (WNL) Muscle Wasting: Shoulders (deltoids): (WNL) Muscle Wasting: Dorsal Hand (Interosseous): (WNL) Fluid Evaluation: (WNL) Malnutrition Statement: Malnutrition criteria met: Does the patient meet criteria for malnutrition: No *Based on The Academy and ASPEN Indicators to Diagnose Malnutrition (AAIM) criteria (2012) TRANSPLANT SURGERY PROGRESS NOTE: Date of Service: 08/24/2023 Admit Date: 08/23/2023 Date of last transplant: 08/23/23 Surgery Post-op Days: 1 Day Post-Op s/p Procedure(s) (LRB): DONOR NEPHRECTOMY LIVING DONOR LAPAROSCOPIC (Left) SUBJECTIVE: POD1 lap assisted donor nephrectomy. NAEON, on RA. Tolerating CLD, belching, denies flatus or BM. Denies N/V. Appropriate peter-incisional pain controlled with PRN narcotics. Belcher removed this morning. Looking forward to food. Plan: discontinue IVF, regular diet, encourage PO and ambulation. Will need prophylactic lovenox at discharge for 2-4 weeks post-op while taking OCP for endometriosis PMH/PSH/ROS: Refer to H&P OBJECTIVE: BP 96/60 (BP Location: Right arm, BP Position: Lying) Pulse 84 Temp 97.5 F (36.4 C) (Oral) Resp 14 Ht 1.575 m (5' 2 ) Wt 58.5 kg (129 lb) SpO2 97% BMI 23.59 kg/m Smoking Status Never Intake/Output Summary (Last 24 hours) at 08/24/2023 0916 Last data filed at 08/24/2023 0850 Gross per 24 hour Intake 5590 ml Output 3250 ml Net 2340 ml Physical Exam: General: No acute distress Neuro: alert and oriented x 3 Cardiovascular: regular rate and rhythm, no murmurs, rubs, gallops Pulmonary: CTAB Abdomen: soft, nondistended incision-clean, dry, intact, appropriate periincisional erythema and tenderness Extremities: warm and well perfused, 2+dp/pt pulses Skin: no lesions Medications: Refer to [facility] Labs: Lab Results Component Value Date WBC 7.52 08/12/2023 HGB 12.8 08/24/2023 HCT 39.9 08/24/2023 PLATELET 351 08/12/2023 MCV 88.5 08/12/2023 Lab Results Component Value Date SODIUM 140 08/12/2023 POTASSIUM 4.0 08/12/2023 CHLORIDE 105 08/12/2023 CO2 25 08/12/2023 BUN 12 08/24/2023 CREATSERUM 1.16 08/24/2023 GLUCOSE 100 (H) 08/12/2023 Lab Results Component Value Date ALT 22 06/10/2023 AST 25 06/10/2023 GGT 16 06/10/2023 ALKPHOS 50 06/10/2023 BILITOTAL 0.5 06/10/2023 BILIDIRECT 0.1 06/10/2023 ASSESSMENT/PLAN 1 Day Post-Op s/p Procedure(s) (LRB): DONOR NEPHRECTOMY LIVING DONOR LAPAROSCOPIC (Left) Blood pressure: continue to monitor Electrolytes: continue to monitor Nutrition: DIET REGULAR Belcher: removed POD1 08/23 Pain adequately controlled on intermittent narcotic IV fluids: discontinue Prophylaxis: DVT: subcutaneous heparin/SCDs GI: colace, pepcid/protonix Dispo: home 08/24 Complexity. Any conditions listed below are present on admission unless otherwise specified. . . The plan of care was discussed with the patient and nursing staff. All questions and concerns addressed. These multidisciplinary rounds were represented by transplant surgery including attending surgeon, fellow, advanced practice provider and/or resident, physician care assistant, transplant pharmacy, discharge planning and nursing. Manish Naranjo MD Associated attestation - Tayla Mazariegos MD, PhD - 08/24/2023 3:48 PM EDT I. Tayla Mazariegos MD, PhD, have independently seen and examined the patient, reviewed the labs, discussed the patient with the fellow/resident and agree with the note. Transplant Surgery Post-Operative Check ID/CC: Chrystal Mason is a 38 y.o. female who is now status donor nephrectomy. I came to evaluate the patient after she came up to the hospital floor. Subjective: Patient reports mild abdominal pain, well-controlled with pain medications. She denies any nausea, emesis, chest pain, palpitations, or dyspnea. She has had adequate UOP, has not ambulated, has tolerated CLD PO. The patient would like to advance her diet but had no other immediate concerns. Objective: BP 106/67 Pulse 97 Temp 97.1 F (36.2 C) (Infrared) Resp 14 Ht 1.575 m (5' 2 ) Wt 58.5 kg (129 lb) SpO2 100% BMI 23.59 kg/m Smoking Status Never Physical Exam: Gen: lying in bed, NAD Cardiac: regular rate and rhythm Lung: no increased work of breathing, equal chest rise bilaterally, oxygen via RA Abdomen: soft, appropriately tender to palpation, non-distended; dermabond over umbilicus, LLQ, pfannensteil incisions clean, dry, and intact : belcher bag with clear yellow urine Extremities: no cyanosis, no edema, warm and well-perfused Neuro: AAOx3, CN 2-12 grossly intact, no focal motor or sensory deficits Psych: no evidence of delirium or psychosis, appropriate mood and affect Assessment/Plan: Chrystal Mason is a 38 y.o. female who is now s/p donor nephrectomy. She is recovering well post-operatively. - pain and nausea control as needed - DIET CLEAR LIQUID, anticipate advance in AM - IS, OOB; ambulate as able - I/Os, continue belcher, IVF - will continue to monitor If there are any questions or concerns, please do not hesitate to page the groundwater consultant resident (on Web Exchange, search Transplant > groundwater consultant now > Resident Consult Days TRR OR Resident Evenings and Weekends [Evenings start at 5pm except start at 6pm] ). Stephie Jon MD PGY-2 General Surgery [phone] Department of Pharmacy Transplant Note Patient: Chrystal Mason Room/Bed: [facility] Chrystal Mason is s/p donor nephrectomy on 08/23/23. This patient's medications prior to surgery were reviewed and restarted as appropriate for the hospital admission. On discharge, the following medications should NOT be resumed: Loestrin for 30 days post operatively due to clot risk . No further needs anticipated, patient ready for discharge from a pharmacy perspective. I remain available for consultation and can be contacted, as needed by the other members of the transplant team. Name: Radha Cosby RPH Phone #: [phone] Date/Time: 08/23/2023 3:39 PM Summary: Pharmacy Med Rec--Donor Department of Pharmacy Admission Medication Reconciliation Note Patient: Chrystal Mason Room/Bed: Room/bed info not found The patient's allergies have been reviewed with Patient.I also have reviewed the patient's home medication list with the following sources Patient recall with prompting, Dispense Report, OARRs, Outside hospital record in Care Everywhere, and [facility] Review. I have also reviewed this list with the pharmacist. I am recommending the following changes to the home medication list. These recommendations are considered preliminary until attestation of this note by a pharmacist. Edits to Home Medications: ascorbic acid PO TO 500 mg tab daily. cholecalciferol PO TO 1,000 unit cap daily. fryqxkeonwh-foeqisued-itfoms IN, inhale TO 200-62.5-25 mcg/act, inhale 1 puff daily. Probiotic product PO TO take 1 cap daily. OARRs Report: Has been reviewed. Medications that need removed from Outside Medication Reconciliation list: Please remove all medications. Please feel free to contact me with any further questions. Name: Sheyla Ceronalba Phone #: [phone] Date/Time: 08/22/2023 3:50 PM Time Spent: 10 minutes Associated attestation - Rahda Cosby, [facility] - 08/22/2023 4:04 PM EDT Department of Pharmacy Admission Medication Reconciliation Note Patient: Chrystal Mason Room/Bed: Room/bed info not found I have reviewed the home medication list with the Excellence Manager. The home medication list status is: complete. All changes to the home medication list have been updated in IHIS. Updated PLAN EXAMINER Med List: Cannot display prior to admission medications because the patient has not been admitted in this contact. Please feel free to contact me with any further questions. Name: Radha Cosby [facility] Phone #: [phone] Date/Time: 08/22/2023 4:04 PM documented in this encounter [facility] 08-24-2023 Plan of care note Problem: Oral Intake Inadequate Goal: Improved Oral Intake Outcome: Progressing Nutrition Plan of Care/DISCHARGE PLAN Continue current diet order; Monitor return of bowel function adj bowel regimen intermediate project manager avoid protein powders and other protein supplements, encouraged joint terminal attack controller hydration, Encouraged to contact donor transplant team for any issues after discharge; Discharge Planning: Oral Diet Suggestion: Heart Healthy (subject to change based on organ function and labs at discharge) Nutrition education and materials provided to patient and family Provided: Living Kidney Donor Diet Guide and Heart Healthy Eating with the DASH diet RD will continue to follow per clinical protocol and assess further as needed. Should patient discharge this will act as their discharge recommendations [facility] 08-23-2023 Nurse Note Ms. Mason was admitted to [address] [place] [address]. On admission to 0, from PACU a dual RN initial assessment of skin condition was performed by Zakia Moya, CHANDRAKANT and Batool Corado RN. Skin Assessment: Skin not within defined limits. Abd incision and 2 lap sites with dermabond Mc Score: 20 LDA Added: Yes Based on fall prevention risk stratification tool, patient is at low risk for fall. The following interventions were implemented: Low Risk 0-16 GREEN Call light plugged into bed Fall Color placed above door Gait belt at bedside Education on falls provided. [facility] 08-23-2023 Hospital Discharge instructions Yesica Alas, JANETT-SOLID DIE CUTTER - 08/23/2023 3:22 PM EDT TO CONTACT US: To reach a Coordinator: Call the PreTransplant Office [phone] (8:00am -4:00pm) After hours call the PreTransplant Call ACTIVITY - No driving for 1-[address] if you are taking narcotic pain medication. - No lifting, pulling or pushing over 5-10 pounds until your post-operative exam. A gallon of milk weighs about 8 pounds. - Wear an abdominal binder while up and moving for next 2 weeks - Activity as tolerated. Walking is good exercise and is appropriate as tolerated. - May resume sexual activity INCISION CARE - Covering your incision will be white strips called steri-strips. If you do not have steri-strips you will have dermabond (a glue) closing your incision. - Your steri strips should remain dry and in place for 7-10 days after your surgery date. - If your steri strips begin to loosen and curl, you may trim them. - Do not soak your incision or take a tub bath until your incision is healed (approximately 6-8 weeks You may allow water to run over your incision during your daily shower, but do not scrub the incision. Gently pat dry. - Do not put creams, lotions, or ointments on your incision. DONOR GUIDELINES - Check blood pressure every few months and seek prompt evaluation if your blood pressure is consistently greater than 140/85 mmHg - Whenever you seek medical care, always let your healthcare provider know that you have one kidney. - Make sure you see your donor team for checkups at 4-6 weeks post operatively, 6 months, 1 year and 2 years post donation. Lab tests for kidney function will be completed at each time interval. - You should also have an annual exam with your primary care physician to have your urine checked for protein and to have your blood drawn to check your kidney function. -Eat plenty of fruits, vegetables, juices, and drink 2 liters of fluid daily (mostly water) - If you are prescribed any medications, you should let your health care provider know that you have only one kidney. This may effect the dose you are prescribed. - DO NOT use any NSAIDS (non-steroidal anti-inflammatory drugs). Examples are ibuprofen (Advil, Motrin), Aleve and Naprosyn. It is safer for your kidney to use acetaminophen (Tylenol) for pain. Contact your coordinator if you have the following symptoms FEVER/CHILLS/FLU - Temperature greater than 101 degrees F and/or chills/ or body aches. SYMPTOMS OF WOUND INFECTION - Increase in pain in or around wound - Change in the amount of drainage - Change in the color of drainage - Change in the odor of drainage - Warmth in the tissues around the wound - Red streaks on the skin near the wound - Fever (temperature greater than 100.5 degrees F) - Incision separates or opens up NAUSEA VOMITING - Nausea and vomiting that continues for more than 24 hours - Not able to keep medicine down - Not able to keep fluids down CONSTIPATION - If you have not had a bowel movement 3 days after your discharge. PAIN MEDICATION You have been given a prescription containing oxycodone or hydrocodone. This is an opioid pain medication. It can be helpful in controlling pain after your surgery. Use this medication sparingly. If you continue to have discomfort and you have taken all of your prescription, you can use acetaminophen (Tylenol) 325-650mg every six hours. Side effects of opioid pain medicine: Dizziness Light-headedness Feeling faint Sleepiness Nausea or vomiting Constipation You must not drink alcohol with this medicine. If you take this medication and drink alcohol, it can slow down your breathing, or stop it altogether. When you take this medicine, you should not drive. If you are driving and are stopped while on this medicine, you may be charged with a DUI. You should not run machinery or other heavy equipment. You may have difficulty thinking clearly, or you may not be able to respond quickly when taking this medicine, which could place you, or others around you, in danger. This medication can be addictive. Usually, patients do not become addicted to this medication if used as prescribed and if taken for a short period of time. However, people respond to medications in different ways and it is important to know that there are risks. Store this medicine in a locked cabinet, drawer or lock box. Because of its potential for addiction and misuse, this medication should be kept away from anyone for whom it is not prescribed. Do not share this medication with anyone. Find a place that you can lock to keep it away from children, teens and young adults. Dispose of this medication properly if you no longer have the need and have leftover tablets. Extra tablets can be flushed, or turned in to specific locations. See link for more information: http://rxdrugdropbox.org/ Potential serious long-term effects If you chose to continue with this drug or get additional prescriptions from other clinicians you run the risk of addiction, increased pain, inability to perform sexually, serious health problems, and . The following attachments cannot be sent through Care Everywhere.Anticoagulant: Injectable (Bangladeshi)documented in this encounter [facility] 08-23-2023 Nurse Surgical operation note Report given to Roseanna WRAPPING MACHINE HELPER. All questions answered. Patient to be transported to PACU with anesthesia. [facility] Note Report given to Roseanna WRAPPING MACHINE HELPER. All questions answered. Patient to be transported to PACU with anesthesia. documented in this encounter [facility] 08-23-2023 Surgery Postoperative evaluation and management note Operative Report DATE PERFORMED: 08/23/23 PREOPERATIVE DIAGNOSIS: Kidney donor POSTOPERATIVE DIAGNOSIS: Kidney donor PROCEDURE PERFORMED Procedure(s) (LRB): Hand assisted Laparoscopic left donor nephrectomy SURGEON: Gamaliel Drake, MBBS Fellow- Steven Llanos MD ANESTHESIA: General endotracheal. COMPLICATION: none ESTIMATED BLOOD LOSS: minimal SPECIMEN: None FINDINGS: DESCRIPTION OF PROCEDURE: The patient was appropriately identified and wheeled into the operating room and placed on the operating table in supine position. A sign-in was conducted. The patient received perioperative prophylactic antibiotics in addition to preoperative immunosuppressive medications. Sequential compression devices were applied to the legs bilaterally. General endotracheal anesthesia was administered without complications. A Belcher catheter was inserted into the bladder under sterile conditions. The abdomen was then prepped and draped in standard sterile fashion. A time-out was conducted. Patient was then placed in left lateral position, patient secured to the table and care taken to cushion all the pressure points. After position abdomen prepped and draped using all sterile precautions. Lower midline incision given, the fascia opened in the midline and peritoneum entered. Rubia wound retractor placed in the incision and gel port applied on top of the rubia wound retractor. Right hand inserted into the abdomen, 12 mm port inserted in the mid clavicular line in sub costal region, 12mm camera port inserted above the umbilicus. The left colon reflected medially from the kidney upto the gonadal vein. Splenic flexure of colon also mobilized. Ureter identified and mobilized. Gonadal vein traced upto the origin from the left renal vein and divided between clips, adrenal vein identified and divided between clips. Kidney mobilized from all sides and adrenal grand from upper pole the kidney with ligasure. Lower polar artery identified and dissected. The main renal vein dissection uptil below the adrenal vein origin. MAIN Renal Artery dissected free from lymphatics and upto origin from aorta. Ureter clipped above the common iliac artery and divided, urine seen spurting out of cut end of ureter. Patient given 3000 U of heparin intraop. Renal vein divided with 45 caldwell vascular stapler. Kidney taken out via lower midline incision. Kidney placed in cold solution and taken to recipient room by the attending surgeon. Heparin was reversed with 30 ml protamine Lower midline peritoneal and fascia closed. Peritoneal cavity inspected for hemostatis. Compete hemostasis achieved. Ports taken out and gas removed from the abdomen. Ports site closed with vicryl 1-0 and skin incisions closed with subcuticular sutures. Abdominal TAP block given by the anesthesia team and patient extubated and shifted to the PACU. I was present in the room throughout the case. Bebeto Balderrama Attending [facility] Work Phone: 08-23-2023 Surgery Postoperative evaluation and management note Chrystal Mason ([id number]) PRE OPERATIVE DIAGNOSIS Kidney donor [Z52.4] POST OPERATIVE DIAGNOSIS Kidney donor [Z52.4] PROCEDURE PERFORMED Procedure(s) (LRB): DONOR NEPHRECTOMY LIVING DONOR LAPAROSCOPIC (Left) PRIMARY CLOSURE Yes INTRAOPERATIVE FINDINGS No abnormalities SURGEON Surgeons and Role: * BOGDAN Drake - Primary ANESTHESIOLOGIST Anesthesiologist: Cher Cash MD; Chino Andrews MD HIGH SCHOOL HISTORY TEACHER: Leila Gallo APRN-HIGH SCHOOL HISTORY TEACHER; Aristides George APRN-VAL SURGICAL STAFF Twine Reeling Machine Operator: Titus Traore RN Relief Twine Reeling Machine Operator: Sweta Cleary RN Scrub Person: Kyle Polk Assisting: Manish Naranjo MD Fellow: Steven Llanos MD COMPLICATIONS None ESTIMATED BLOOD LOSS 100 ml SPECIMENS No specimen sent * No specimens in log * [facility] BOGDAN Drake August 23, 2023 2:14 PM [facility] 08-23-2023 Nurse Note Report given to Beverly Sharpe RN SPR [facility] 08-23-2023 History and physical note Transplant Surgery Admission Note Patient: Chrystal Mason Date: 08/23/2023 7:52 AM Reason for Admission: possible kidney transplant HPI: Chrystal Mason is a 38 y.o. female with no pertinent PMH who presents for lap donor nephrectomy. The patient has had no changes to their medical status since last being seen. No recent emergency department visits, and no recent illnesses. She has been compliant with pre-op testing. She has had no cough, fever, chills, headache, chest pain, nausea, vomiting, abdominal pain, constipation, or diarrhea at this time. The patient is not anticoagulated. The patient is not on steroids or chemotherapy. REVIEW OF SYSTEMS: (all positives in bold, otherwise negative) GENERAL: fever, chills, weight loss, fatigue, night sweats EYES: blurry vision, eye pain HENT: headache, hearing loss, sore throat, dysphagia, sinus pain CARDIO: chest pain, palpitations, orthopnea PULM: shortness of breath, wheezing, cough, sputum, hemoptysis GI: nausea, vomiting, diarrhea, abdominal pain, blood in stool : urinary frequency, urgency, dysuria, urethral discharge MSK: joint pain, back pain, swelling SKIN: rash, redness HEME: easy bruising, bleeding Medical History PAST MEDICAL/SURGICAL HISTORY has a past medical history of Asthma and Endometriosis. has a past surgical history that includes bunionectomy (Bilateral); laparoscopy abdomen peritoneum omentum diagnostic; and tonsillectomy adenoidectomy. MEDS Current Outpatient Medications Medication Instructions Ascorbic acid (VITAMIN C) 500 mg, Oral, DAILY Zbmbawctkqo-Prxsychkh-Ksvhqv 200-62.5-25 MCG/ACT Aerosol Powder, breath activated 1 puff, Inhalation, DAILY Multiple Vitamin (multivitamin) capsule 1 capsule, Oral, DAILY norethindrone-ethinyl estradiol (Loestrin 03/30, ,) 1-20 MG-MCG tablet 1 tablet, Oral, DAILY Probiotic Product (PROBIOTIC PO) 1 tablet, Oral, DAILY Vitamin D-3 1,000 Units, Oral, DAILY FAMILY HISTORY Her family history is not on file. SOCIAL HISTORY reports that she has never smoked. She has never used smokeless tobacco. She reports that she does not currently use alcohol. No history on file for drug use. ALLERGIES Patient has no known allergies. Vitals/Physical Exam VITALS: PHYSICAL EXAM Constitutional: No acute distress. HEENT: Head normocephalic, atraumatic. Cardiovascular: Regular rate and rhythm. Pulmonary/Chest: Unlabored breathing on room air. Abdomen: Soft, non-distended, non-tender. Extremities: Moving all extremities equally and purposefully. Neurological: Alert, oriented. No gross deficits. Skin: No rash noted. Psychiatric: Mood, affect, and memory normal. Labs/Imaging LABS: No results for input(s): WBC , HGB , PLATELET , CREATSERUM , INR , LACT , CRP in the last 72 hours. No results for input(s): SODIUM , POTASSIUM , CHLORIDE , CO2 , BUN , CREATSERUM , MAGNESIUM , PHOSPHORUS in the last 72 hours. No results for input(s): PT , PTT , INR in the last 72 hours. No results for input(s): AST , ALT , BILITOTAL , BILIDIRECT , TOTALPROTEIN , ALBUMIN , ALBUMINALB , ALBUMINFLD , ALBUMINCSF , ALBUMINSERUM , ALKPHOS , PREALBUMIN in the last 72 hours. Invalid input(s): ALB Assessment/Plan Chrystal Mason is a 38 y.o. female with no pertinent medical history presenting for lap assisted donor nephrectomy. - NPO, IVF - Routine pre-op labs and imaging - Patient consented, discussed procedure and all questions were answered The plan was discussed with transplant fellow/attending. Manish Naranjo MD Department of General Surgery Pager: [phone] Associated attestation - Bebeto Balderrama MBBS - 08/23/2023 11:01 AM EDT I saw and examined Chrystal Mason on 08/23/2023 prior to surgery. The risks and benefits of donor nephrectomy were discussed. I explained the potential complications that may occur during/after donor nephrectomy that include but are not limited to bleeding, infection, need for additional procedures. BOGDAN Drake [facility] 08-23-2023 History and physical note Transplant Surgery Admission Note Patient: Chrystal Mason Date: 08/23/2023 7:52 AM Reason for Admission: possible kidney transplant HPI: Chrystal Mason is a 38 y.o. female with no pertinent PMH who presents for lap donor nephrectomy. The patient has had no changes to their medical status since last being seen. No recent emergency department visits, and no recent illnesses. She has been compliant with pre-op testing. She has had no cough, fever, chills, headache, chest pain, nausea, vomiting, abdominal pain, constipation, or diarrhea at this time. The patient is not anticoagulated. The patient is not on steroids or chemotherapy. REVIEW OF SYSTEMS: (all positives in bold, otherwise negative) GENERAL: fever, chills, weight loss, fatigue, night sweats EYES: blurry vision, eye pain HENT: headache, hearing loss, sore throat, dysphagia, sinus pain CARDIO: chest pain, palpitations, orthopnea PULM: shortness of breath, wheezing, cough, sputum, hemoptysis GI: nausea, vomiting, diarrhea, abdominal pain, blood in stool : urinary frequency, urgency, dysuria, urethral discharge MSK: joint pain, back pain, swelling SKIN: rash, redness HEME: easy bruising, bleeding Medical History PAST MEDICAL/SURGICAL HISTORY has a past medical history of Asthma and Endometriosis. has a past surgical history that includes bunionectomy (Bilateral); laparoscopy abdomen peritoneum omentum diagnostic; and tonsillectomy adenoidectomy. MEDS Current Outpatient Medications Medication Instructions Ascorbic acid (VITAMIN C) 500 mg, Oral, DAILY Lapplelytud-Mngondijd-Zarilv 200-62.5-25 MCG/ACT Aerosol Powder, breath activated 1 puff, Inhalation, DAILY Multiple Vitamin (multivitamin) capsule 1 capsule, Oral, DAILY norethindrone-ethinyl estradiol (Loestrin 03/30, ,) 1-20 MG-MCG tablet 1 tablet, Oral, DAILY Probiotic Product (PROBIOTIC PO) 1 tablet, Oral, DAILY Vitamin D-3 1,000 Units, Oral, DAILY FAMILY HISTORY Her family history is not on file. SOCIAL HISTORY reports that she has never smoked. She has never used smokeless tobacco. She reports that she does not currently use alcohol. No history on file for drug use. ALLERGIES Patient has no known allergies. Vitals/Physical Exam VITALS: PHYSICAL EXAM Constitutional: No acute distress. HEENT: Head normocephalic, atraumatic. Cardiovascular: Regular rate and rhythm. Pulmonary/Chest: Unlabored breathing on room air. Abdomen: Soft, non-distended, non-tender. Extremities: Moving all extremities equally and purposefully. Neurological: Alert, oriented. No gross deficits. Skin: No rash noted. Psychiatric: Mood, affect, and memory normal. Labs/Imaging LABS: No results for input(s): WBC , HGB , PLATELET , CREATSERUM , INR , LACT , CRP in the last 72 hours. No results for input(s): SODIUM , POTASSIUM , CHLORIDE , CO2 , BUN , CREATSERUM , MAGNESIUM , PHOSPHORUS in the last 72 hours. No results for input(s): PT , PTT , INR in the last 72 hours. No results for input(s): AST , ALT , BILITOTAL , BILIDIRECT , TOTALPROTEIN , ALBUMIN , ALBUMINALB , ALBUMINFLD , ALBUMINCSF , ALBUMINSERUM , ALKPHOS , PREALBUMIN in the last 72 hours. Invalid input(s): ALB Assessment/Plan Chrystal Mason is a 38 y.o. female with no pertinent medical history presenting for lap assisted donor nephrectomy. - NPO, IVF - Routine pre-op labs and imaging - Patient consented, discussed procedure and all questions were answered The plan was discussed with transplant fellow/attending. Manish Naranjo MD Department of General Surgery Pager: [phone] Associated attestation - Bebeto Balderrama MBBS - 08/23/2023 11:01 AM EDT I saw and examined Chrystal Mason on 08/23/2023 prior to surgery. The risks and benefits of donor nephrectomy were discussed. I explained the potential complications that may occur during/after donor nephrectomy that include but are not limited to bleeding, infection, need for additional procedures. BOGDAN Drake documented in this encounter [facility] 06-10-2023 History of Present illness Narrative Transplant Donor Psychosocial Evaluation Demographics: Patient is a 38 y.o., White, female who presented for a Kidney donor transplant evaluation. Patient completed evaluation with spouse. Patient was AOx4. The [facility] psychosocial assessment consent form has been signed and this social media marketing specialist informed patient confidentiality. Patient does demonstrate the ability to make informed decisions. grease rack worker educated patient on the benefits of having advanced directives. Patient identifies with HOLINESS worship. Patient confirms being a [place] Citizen. Patient's preferred language is Bangladeshi. Patient identifies as an MYRANDA donor and her relationship to recipient is friend. Education: Patient's highest level of education is an Associate's degree in applied science (PLAN EXAMINER). She denies a history of developmental delay or learning disabilities. Patient is literate. Patient denies recent changes to memory, concentration, or attention. Functional Status: Patient's current transportation is has valid license, has own vehicle, independent/drives and patient identifies additional access to transportation through her spouse and mother. She reports no sensory impairments. There is no evidence of patient having difficulty following medical recommendations. Support/Caregiver: Patient lives in a house that she owns with her spouse and two dogs (indoors- other farm animals not in house). Patient plans on discharging to home for post donation care. Patient's primary support team will include spouse (Vinicio -[phone]). Additional support includes her mother (61) who is recently retired. She has a valid license and vehicle, is generally healthy, lives 15 minutes away. She will come stay during the day while spouse is at work. Patient was encouraged to discuss needs with family and friends to ensure that she has appropriate care post-surgery. Education was provided on the need to avoid steps, lifting, and driving post-surgery. Patient and social work spent approximately 15 minutes discussing post care protocol and need for patient to access supportive care for recovery. Financial: Social work explained financial, employment and insurance implications related to being an organ donor. Financial resources provided to patient, including NLDAC and tax incentives. Patient's employment status is Full-Time. 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 Patient denies current financial concerns. Social work reviewed the importance with patient the need to discuss with employer, if applicable, time expected off of work and access to Family Medical Leave Act. Patient reports access to insurance through Own employer, Spouse employer (spouse employer insuance as secondary). Social work reviewed with patient the importance of life-long routine medical follow-up. Mental Health: Patient denies being previously diagnosed with a mental health diagnosis. Patient denies current symptoms and/or daily functioning concerns. Patient confirms current or history of outpatient grief counseling when her grandfather . Patient denies current or history of psychotropic medication use. She denies a history of psychiatric hospitalizations. Patient denies a history of abuse. Patient confirms feeling safe in her current environment and relationship. grease rack worker reviewed stress related to medical procedures and major surgery, including stress of staying in the hospital, being away from home, and being unable to complete typical household and work tasks. Patient's coping skills include watching television, watching movies (drawing). Patient and patient's support were educated about the mental health symptoms that some patients have reported experiencing post-transplant including depression and anxiety. Patient was informed of the availability of mental health resources and access to the Transplant Clinical Health Psychologist. Mental Status Exam: Patient's mood was noted as euthymic Patient's appearance was noted as appropriately dressed and groomed Patient affect was noted as appropriately groomed with normal affect Her behavior was noted as calm, cooperative and appropriate Eye contact was maintained and appropriate Insight was good Memory was noted as intact, no impairments noted Patient's attention was sustained. Patient's judgment was noted to be good Patient's speech was of adequate volume and rate Patient's thought content was noted as logical and coherent Psychomotor functioning was within normal limits Visual/auditory/olfactory hallucinations were not noted. Delusions were not noted as present. Patient denies current SI, plan and intent along with HI, plan and intent. Patient denies a history of suicide attempts or self-injurious behaviors. Alcohol and Substance Use: Tobacco: denies Alcohol: denies (has maybe one drink a year, if that) Patient denies all other substance use and support person(s) present, outside documentation, and patient's medical records appear to confirm same. Based on evaluation, patient meets criteria for No Alcohol or Substance Use Disorder diagnosis Donor Motivation: The patient states that they have known the recipient for 15 years. Patient states that she learned about the recipient's need for a transplant through a facebook page that recipient uses to update friends and family on her health issues. She reports that they offered to donate and the recipient was very touched . She states that their motivation to donate includes I have donated blood since I was 18 and always loved the feeling of donating and helping others She stated that she has been interested in organ donation for a long time, but seeing that her friend had an imminent need spurred her to look into it more. The donor feels that the recipient's life will change because time is the greatest gift, it's not just her life it's her son and her and her parents' lives too . Patient does not expect donation to change their relationship with the recipient. Patient reports that her family and friends have been supportive of the desire to donate. Patient denies having any second thoughts regarding organ donation. If donor is ruled out for any reason, patient voices that they would feel pretty defeated, it would be a bummer . I'm a helper and a caregiver at heart but stated that if she wasn't able to donate there would be a purpose for that too. The donor indicates that if recipient experiences complications at any point post-transplant they would feel It would be bummer, but I wouldn't feel like it was a waste or anything like that. Patient voices that she has no concerns regarding donation . Patient denies feeling pressure to donate or being offered pay/reward to donate. Patient's decision to donate was free of coercion and other undue pressure. Social work explained the option for a medical out with the patient and encouraged they were encourage to notify transplant staff at any time to express those wishes. Understanding of Donation Process: Patient voices understanding regarding how donation will change their life as a potential organ donor including post-surgical limitations and long-term needs, as well as transplant care for recipient. Patient does demonstrate understanding regarding organ donation process. Social work reviewed with patient Donor Risk Criteria Survey and they verbalized understanding the purpose of the questions. Patient denies current or history of surveyed behaviors to note within the last 30 days. She identified with none of the indicated behaviors. Patient denies any questions regarding Donor Risk Criteria Survey. Patient was encouraged to discuss additional questions with pre coordinator or physician. She has demonstrated an understanding of short-term and long-term risks associated with organ donation and transplant. Patient acknowledged being educated and receiving information about the short and long-term medical and psychosocial risks of living donation for both the donor and recipient. Patient demonstrates minimal knowledge of the recipient's diagnosis and prognosis. Social work discussed and reviewed the short and joint terminal attack controller psychological risks associated with donation, which include: body image, scarring, functional status, treatment benefits and risks, PTSD, anxiety, and depression. She denies current concerns regarding psychological risks factors. Patient was given a donor education packet with checklist to prepare for donation, financial/tax incentives, support information, and smoking cessation resources. Psychosocial impression: Social work reinforced the option for a medical out with the patient and encouraged them to notify transplant staff at any time to express those wishes. Based on patient's presentation, it appears that patient has been forthcoming with evaluation information. Patient does present as an adequate psychosocial candidate at this time. Psychosocial evaluation information shared multidisciplinary team for continuity of care. DELICIA Garcia, ROSALIO-Mar Outpatient Transplant Apparatus Cleaner [facility] [address] [place], [place] [address] [email or web address] Chrystal Mason was seen for evaluation for kidney donation. The patient observed the donor education video and completed a questionnaire to show understanding of the donation process and requirements. The patient was provided with donor education booklet, consent for donor evaluation and copy of surgical consent. Patient has reviewed consent for evaluation and wishes to proceed. Patient and present support asked appropriate questions and demonstrated understanding of answers. [facility] high risk survey completed and reviewed by physician, SW and coordinator; patient does not endorse risk behaviors. Medical history and current medications were reviewed with the patient. Patient is being evaluated for kidney donation to other - friend. Patient endorsed medical/surgical history as documented. Medications and allergies were reviewed. Patient has completed donor laboratory studies, HLA typing, ABO confirmation. Will complete EKG, CXR and renal CTA today during evaluation. Social work, KIKE, academic assistant and transplant surgeon also evaluated this patient. Patient's case will be discussed by the multidisciplinary team and discussed at Patient Selection Committee when evaluation is complete. Patient has no further concerns or questions today and understands that we will be in touch after review of donor evaluation studies. Patient has contact information for the transplant clinic and was encouraged to call if there are any further questions. Outstanding Needs: none Chrystal Mason [id number] 06/19/23 Living Kidney Donor Evaluation Chief complaint: To be a living kidney donor History of present situation: 38 y.o. year-old female who seeks to be a living kidney donor. 1. She is overall healthy without any chronic active medical problems. 2. She specifically denies any history of hypertension, diabetes, cardiovascular disease, or renal disease. 3. There is no history of any urinary tract infections or kidney stones. 4. There is no history of any chronic analgesic use. 5. There is no history of hematuria, proteinuria, nocturia, or enuresis. 6. Other pertinent history includes: Asthma, controlled with no ER visits 7. She has a total of 0 pregnancies without the development of hypertension, hyperglycemia, or proteinuria. 8. She has been healthy all of her adult life 9. She voluntarily has come forward to be a kidney donor and has no reservations Past medical history: overall unremarkable except for what has already been listed. She denies any liver disease, lung disease, or malignancies. 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 Other review of systems are all negative unless noted below. Family history: Mother: 61 alive and well Father: copd, alcoholic Siblings: brother alive and well Are there other primary family members who have: diabetes: no renal disease: no renal cell carcinoma: no Physical examination: - in general, well-developed, well-nourished 38 y.o. female in no acute distress. Vitals: 06/10/23 0827 06/10/23 0828 BP: 129/87 128/83 Pulse: 95 95 Temp: 98.2 degrees F (36.8 degrees C) TempSrc: Temporal Weight: 61.1 kg (134 lb 12.8 oz) Height: 1.575 m (5' 2 ) 1. HEENT - normocephalic, atraumatic, pupils equal, round and reactive to light. Extraocular muscles were intact. Funduscopic exam showed sharp discs with normal vascularity. There is no hemorrhages or exudates. Her nasal and oropharynx were clear. 2. Neck was supple. There was no lymphadenopathy, JVP, carotid bruits, or thyromegaly. 3. Lungs were clear to auscultation and percussion. 4. Heart had a regular rate and rhythm with a normal S1 and S2. There was no S3 or S4 or murmur. Her PMI was nondisplaced. 5. Abdomen was obese, soft, nontender with good bowel sounds. Liver and spleen not palpable. No other abdominal masses or bruits. 6. Extremities - 2+ pulses. No cyanosis, clubbing or edema. 7. Neurological exam was overall normal grossly to motor and sensory exam. 8. Musculoskeletal - there was no spinal or CVA tenderness or joint inflammation. 9. Skin - no obvious abnormal skin lesions. Impression and plan: Based on the above information, she appears to be an overall healthy individual and genuinely motivated to be a kidney donor. At this point, I would proceed with a standard transplant work up. She needs to have an up to date pap smear and clinical breast exam. Females over the age of 40 need a mammogram. Females over the age of 50 should have an update colonoscopy or stool hemocults. She has been explained the donation process in detail, and specifically understands the potential of the future development of hypertension, proteinuria, need for chronic or temporary dialysis or . She further understands that the recipient may have rejection or loss of the transplanted organ or recurrence of any [place] kidney disease. She understands everything, all questions have been answered and wishes to proceed. She has been advised to avoid the use of non-steroidal anti-inflammatory medications, to promptly seek medical attention if she develops signs or symptoms of a urinary tract infection or kidney stone. She knows she should have annual physical examinations and assessment of renal function and blood pressure with her primary physician. She does not report a family history of diabetes and does not need to have an oral glucose tolerance test. She has been explained the potential for the future development of diabetes and the implications of that upon a solitary kidney. This information supplements what has been written at the time of her initial clinic evaluation. Greater than 60 minutes has been spent in evaluation of the patient, review of records and data, counseling and coordination of care. Naseem Bagley M.D. senior actuarial analyst Enforcement Manager, Kidney and Pancreas Transplantation documented in this encounter [facility] 06-10-2023 Instructions Chino Sweeney RN - 06/10/2023 10:00 AM EDT Images from the original note were not included. You have been seen in the living donor evaluation clinic. Your living donor coordinators are Cl, they can be reached at [phone] for questions during the donation process. You will need to complete additional testing today. When your visit is complete please take the elevator to the second floor, turn right and follow the hallway to the end for radiology. You will have a chest x-ray and CTA scan completed (2 separate tests). Once that is complete your appointment today is finished. You need to complete the following tests: none Donor Education Reminders: * Most people live normal, healthy lives with one kidney. However, it's important to stay as healthy as possible, and protect the only kidney you have * Lifelong avoidance of NSAIDS ( Motrin, Ibuprofen, Advil, Aleve, Naprosyn and certain arthritis medications) * It is OK to use Tylenol and occasional Asprin * Seek prompt treatment of UTI or kidney stone symptoms ( painful urination, inability to pass urine, pelvic pain, pain in mid back on side of remaining kidney, urine that does not look or smell normal, bloody or dark urine) * Check blood pressure every few months and seek prompt evaluation if your blood pressure is greater than 140/85 mmHg * Drink at least 2 liters of fluid daily ( mostly water ) * You will preserve 75% of you pre donation renal function. You will run a slightly higher creatinine reaching a new baseline between 1-2 years post donation * Make sure you see your PCP annually and have a Blood Creatinine and Urine test for protein each year ( We will obtain these at your 6, 12 and 24 month post donation visit ) .........what living donors have in common is that they stepped up to help others live better lives...family, friends, even total strangers. Thank you for your amazing gift!!! Laparoscopic Nephrectomy: Before Your Surgery What is laparoscopic nephrectomy? A nephrectomy is surgery to take out part or all of the kidney. Sometimes other tissue near the kidney is taken out at the same time. The doctor will put special tools and a thin, lighted tube called a laparoscope through several small cuts in your belly. These cuts are called incisions. Then the doctor will remove your kidney through one of the incisions. The incisions will leave scars that will fade with time. Your body can work fine with one healthy kidney. You will probably spend 3 or 4 days in the hospital. You will need to take it easy for 4 to 6 weeks at home. Follow-up care is a waters part of your treatment and safety. Be sure to make and go to all appointments, and call your doctor if you are having problems. It's also a good idea to know your test results and keep a list of the medicines you take. How do you prepare for surgery? Surgery can be stressful. This information will help you understand what you can expect. And it will help you safely prepare for surgery. Preparing for surgery If you take aspirin or some other blood thinner, ask your doctor if you should stop taking it before your surgery. Make sure that you understand exactly what your doctor wants you to do. These medicines increase the risk of bleeding. Tell your doctor ALL the medicines, vitamins, supplements, and herbal remedies you take. Some may increase the risk of problems during your surgery. Your doctor will tell you if you should stop taking any of them before the surgery and how soon to do it. Stop taking aspirin, NSAIDS (Motrin, Ibuprofen, Advil, Aleve, Naprosyn and certain arthritis medications) and/or herbal medications two weeks prior to surgery Discontinue tobacco and alcohol use at least 2 (two) weeks before donation and need to refrain from use until seen for follow up appointment after donation Women must stop control pills or hormone therapy at least 1 (one) month before donation What happens on the day of surgery? Follow the instructions exactly about when to stop eating and drinking. If you don't, your surgery may be canceled. If your doctor told you to take your medicines on the day of surgery, take them with only a sip of water. Take a bath or shower before you come in for your surgery. Do not apply lotions, perfumes, deodorants, or nail kyrgyz. Do not shave the surgical site yourself. Take off all jewelry and piercings. And take out contact lenses, if you wear them. At the hospital or surgery center Bring a picture ID. The area for surgery is often marked to make sure there are no errors. You will be kept comfortable and safe by your anesthesia provider. You will be asleep during the surgery. The surgery will take about 2 to 4 hours. You will have a tube that drains urine from your bladder. This is called a urinary catheter. When should you call your doctor? You have questions or concerns. You don't understand how to prepare for your surgery. You become ill before the surgery (such as fever, flu, or a cold). You need to reschedule or have changed your mind about having the surgery. Where can you learn more? Go to [email or web address] [email or web address]. Enter A409 in the search box to learn more about 'Laparoscopic Nephrectomy: Before Your Surgery.' Interested in seeing a video go to [email or web address]/video library to see all video content. Current as of: October 20, 2018 Content Version: 12.5 [employer]. Care instructions adapted under license by your healthcare professional. If you have questions about a medical condition or this instruction, always ask your healthcare professional. [employer] disclaims any warranty or liability for your use of this information. Laparoscopic Nephrectomy: What to Expect at Home Your Recovery Your belly will feel sore after the surgery. This usually lasts about 1 to 2 weeks. Your doctor will give you pain medicine for this. You may also have other symptoms such as nausea, diarrhea, constipation, gas, or a headache. At first, you may have low energy and get tired quickly. It may take 3 to 6 months for your energy to fully return. This care sheet gives you a general idea about how long it will take for you to recover. But each person recovers at a different pace. Follow the steps below to get better as quickly as possible. How can you care for yourself at home? Activity Rest when you feel tired. Getting enough sleep will help you recover. Try to walk each day. Start by walking a little more than you did the day before. Bit by bit, increase the amount you walk. Walking boosts blood flow and helps prevent pneumonia and constipation. Avoid exercises that use your belly muscles and strenuous activities such as bicycle riding, jogging, weight lifting, or aerobic exercise until your doctor says it is okay. For at least 4 weeks, avoid lifting anything that would make you strain. This may include a child, heavy grocery bags and milk containers, a heavy briefcase or backpack, cat litter or dog food bags, or a vacuum service cleaner. Hold a pillow over the cuts the doctor made (incisions) when you cough or take deep breaths. This will support your belly and decrease your pain. Do breathing exercises at home as instructed by your doctor. This will help prevent pneumonia. No driving for 2 weeks after surgery or while taking narcotic pain medication. You will probably need to take 4 to 6 weeks off from work. It depends on the type of work you do and how you feel. You may be able to take showers. Do not take a bath for the first 2 weeks, or until your doctor tells you it is okay. Ask your doctor when it is okay for you to have sex. Diet You can eat your normal diet. If you were on a special diet for your kidneys before surgery, follow that diet until your doctor tells you to stop. If your stomach is upset, try bland, low-fat foods like plain rice, broiled chicken, toast, and yogurt. Drink plenty of fluids (unless your doctor tells you not to). You may notice that your bowel movements are not regular right after your surgery. This is common. Try to avoid constipation and straining with bowel movements. You may want to take a fiber supplement every day. If you have not had a bowel movement after a couple of days, ask your doctor about taking a mild laxative. Medicines Your doctor will tell you if and when you can restart your medicines. He or she will also give you instructions about taking any new medicines. If you take aspirin or some other blood thinner, ask your doctor if and when to start taking it again. Make sure that you understand exactly what your doctor wants you to do. Take pain medicines exactly as directed. If the doctor gave you a prescription medicine for pain, take it as prescribed. If you are not taking a prescription pain medicine, take an gmoe-ehu-gkkaigy medicine that your doctor recommends. Read and follow all instructions on the label. Do not take aspirin, ibuprofen (Advil, Motrin), or naproxen (Aleve), or other nonsteroidal anti-inflammatory drugs (NSAIDs) unless your doctor says it is okay. If you think your pain medicine is making you sick to your stomach: Take your medicine after meals (unless your doctor has told you not to). Ask your doctor for a different pain medicine. If your doctor prescribed antibiotics, take them as directed. Do not stop taking them just because you feel better. You need to take the full course of antibiotics. Incision care If you have strips of tape on the incisions, leave the tape on for a week or until it falls off. Wash the area around the incisions daily with warm, soapy water and pat it dry. Don't use hydrogen peroxide or alcohol, which can slow healing. You may cover the incisions with gauze bandages if they weep or rub against clothing. Change the bandages every day. Keep the area around the incisions clean and dry. Follow-up care is a waters part of your treatment and safety. Be sure to make and go to all appointments, and call your doctor if you are having problems. It's also a good idea to know your test results and keep a list of the medicines you take. When should you call for help? Call 911 anytime you think you may need emergency care. For example, call if: You passed out (lost consciousness). You have chest pain, are short of breath, or cough up blood. Call your doctor now or seek immediate medical care if: You have pain that does not get better after you take your pain medicine. You have symptoms of a urinary tract infection. These may include: Pain or burning when you urinate. A frequent need to urinate without being able to pass much urine. Pain in the flank, which is just below the rib cage and above the waist on either side of the back. Blood in the urine. A fever. You have signs of infection, such as: Increased pain, swelling, warmth, or redness. Red streaks leading from the incisions. Pus draining from the incisions. A fever. Your incisions come open. You are bleeding from the incisions. You cannot urinate. You are sick to your stomach or cannot drink fluids. You have signs of a blood clot in your leg (called a deep vein thrombosis), such as: Pain in the calf, back of the knee, thigh, or groin. Redness and swelling in your leg. Watch closely for changes in your health, and be sure to contact your doctor if you are having any problems. Where can you learn more? Go to [email or web address] pitt. Enter L270 in the search box to learn more about 'Laparoscopic Nephrectomy: What to Expect at Home.' Interested in seeing a video go to [email or web address] library to see all video content. Current as of: October 20, 2018 Content Version: 12.5 [employer]. Care instructions adapted under license by your healthcare professional. If you have questions about a medical condition or this instruction, always ask your healthcare professional. [employer] disclaims any warranty or liability for your use of this information. Checking Your Blood Pressure What is blood pressure? Your heart is a pump. Its job is to pump blood throughout your body. Each time your heart beats, it creates a force. Blood pressure is the force of your blood pushing against the aguila of your blood vessels. Blood pressure is written as two numbers. The higher number is the amount of force or pressure pushing against the artery when your heart pumps out blood. This is your systolic pressure. The lower number is the amount of pressure pushing against the artery when your heart relaxes. This second number is called the diastolic pressure. A blood pressure is written like this: 120 / 80 (systolic/diastolic). Be sure to keep a record of your blood pressure readings Always write your blood pressure down on your record sheet. Ask your doctor or nurse what your blood pressure goal range should be. A normal blood pressure is below 120 / 80. Take your blood pressure record with you to share with your doctor when you go in for your appointments. Ask your doctor or nurse what your blood pressure is when it is checked in the office. Follow your diet and exercise plan. Take any medicines your doctor has prescribed for you, even if you feel better. documented in this encounter [facility] 06-10-2023 History of Present illness Narrative Note placed under Txp Neph Chrystal Mason was examined for surgical evaluation as a living kidney donor to friend. I discussed risks and benefits of laparoscopic donor nephrectomy. Potential donor understands and wishes to proceed. All questions answered to donor's satisfaction. Previous abdominal surgeries: LS laparoscopy for endometriosis : None BMI: 24.3 Additional comments: Abdomen: Normal I discussed with patient all aspect of surgery, side selection (left versus right) and location of incisions. We also discussed post operative recovery and pain management. I explained to them in details that the post operative pain may be more intense than expected due to the fact that they are healthy individual undergoing a major surgery. We discuss pain management including block by anesthesia during surgery, oral and IV medications as well as MECHANICAL MANUFACTURING TECHNICIAN if needed. I explained to her that the natural history of endometriosis and the possibility of flare after donations. LIVING DONOR ADVOCATE ASSESSMENT grease rack worker requested as Living Donor Advocate for patient who is a potential kidney donor. The potential recipient is her friend. Pt met her friend when she worked with her friend's 15 years ago. Pt's friend has since moved away, but they have remained in contact. This social media marketing specialist met with patient and discussed her motivations, concerns and understanding of the donation process. TRUE Patient has reviewed the surgical consent form and has had her questions answered to her satisfaction. LDA comments: Patient acknowledged receiving the surgical consent form today and reviewing it. Patient has received detailed information from the LDA about 6,12 and 24 month follow-up requirements, including the benefits of the follow-up and the importance of participating in the follow-up process to ensure the donor receives the best care possible. Patient did not identify any questions or concerns. TRUE Patient understands the surgical procedure of kidney donation. LDA comments: Patient stated that she feels that she has a better understanding of the surgery after attending the teaching session today. Patient learned about the psychosocial evaluation requirements and medical evaluation requirements. Patient did not identify any additional questions. TRUE Patient understands that the evaluation process includes both a psychosocial evaluation and medical evaluation and he various components involved in these evaluations. LDA comments: none TRUE Patient understands the risks, complications and side-effects associated with kidney donation. LDA comments: Patient is also aware of the risk for depression, anxiety and/or PTSD post donation. Patient was informed that there are transplant psychologist, in addition to this LDA, that are available, if needed. Patient did not identify any concerns. TRUE Patient denies feeling any pressure or compulsion to donate her kidney. LDA comments: Patient stated that she volunteered to donate to her friend after seeing a Facebook post expressing her need. Pt has been interested in being a kidney donor since she first donated blood when she was 18yo. Knowing someone that is in need gave her the motivation to pursue donation. Pt's friend is aware of her desire to donate. Patient denied feeling any pressure to donate. TRUE Patient denies any financial compensation from the recipient for this kidney donation. Patient has been educated by LDA and acknowledges and understands that it is a federal crime for any person knowingly acquire, obtain or otherwise transfer any human organ or anything of value, including, but not limited to, [place], property and vacations. LDA comments: none TRUE Patient denies any secondary gain from her kidney donation. LDA comments: none TRUE Patient understands her medical records are confidential and will not be shared with the recipient. LDA comments: none TRUE Patient understands she has a right to withdraw from the donor program at any time prior to surgery without repercussions LDA comments: LDA explained medical out to patient. Patient declined stating that she is committed to the donation process. Patient verbalized her understanding. LDA provided patient with contact information and encouraged her to call with any needs. TRUE None of the patient s comments or questions during the interview generated any concerns regarding her mental capacity. LDA comments: Patient denied having any history/current depression or anxiety. Pt attended grief counseling for a short time after her grandpa . Pt denied drinking, smoking, using illicit substances or having any citations from law enforcement. Patient denied having any learning challenges. Patient answered all questions appropriately. TRUE Patient has identified a support person(s) to help her during recovery. LDA comments: Patient lives with her of a year. They do not have any children. Pt is aware of the need to wait at least a year after donation in order to try to become . Patient stated that she feels that her family and friends have been supportive of her decision to donate. Patient stated that her and mom will be able to assist her during her recovery. Pt's mom is retired and lives 10 minutes from pt. Pt's attended the donor education with pt. LDA met with pt separately from her support person. Patient states she is motivated to donate her kidney because: she wants to see her friend feel better. 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 She has enough ill time to cover her leave, but she hopes to donate when she is on break. Pt denied that donating would cause her a financial hardship. Living Donor Advocate concerns: LDA did not identify any concerns and supports this patient s decision to donate. documented in this encounter [facility] 06-10-2023 Instructions Chino Sweeney RN - 06/10/2023 7:30 AM EDT documented in this encounter [facility] 04-07-2021 Note HNO ID: [id number] Author: Quinn Garza MD Service: ? Author Type: Physician Type: Progress Notes Filed: 04/11/2021 2:42 PM Note Text: Chrystal Teran is a 35 year old female. Consultation was requested by Dr. Hewitt (mail handler assistant) for an opinion regarding possible ANCA-vasculitis; my final assessment and recommendations will be communicated back to the requesting physician by way of shared medical record, or by letter via fax or US mail. Evaluation Date: 04/07/2021 Chief Complaint: abnormal blood tests: ANCA HPI: History was obtained from the patient and from outside records. Chrystal Teran dates her history back to about 2 yrs ago when she started to have worse symptoms fatigue, multiple joint pain and stiffness, mainly in the morning. She has had chronic sinus symptoms all her life: pressure, drainage, chronic cough Frequent episodes of bronchitis She had tonsillectomy May 2020 and she had relief of some of the symptoms Fall 2020: she went back to ENT because of persistent SOB (last 2-3 yrs but didn't get better after the tonsillectomy). ENT referred her to pulmonology. Jan 2021: first visit with mail handler assistant; she had PFTs: mildly abnormal suggestive of asthma. She was started on BREO with minimal improvement: SOB and cough CXR normal She has had fatigue all her life but has been feeling it much worse in the last 2 yrs She had a positive MPO-ANCA and was referred for evaluation of possible GPA or EGPA No chest CT She has not been given prednisone She exercises every day. She is able to walk on the treadmill with resistance for 30 minutes since age 6 she has been taken to doctors because of severe body pain and she was told she had growing pains Review of Systems CONSTITUTION: Negative for: Fever and Recent weight change HEENT: Negative for: Nosebleeds, Mouth sores, Trouble swallowing and Dry mouth RESPIRATORY: Positive for: Cough and Shortness of breath Negative for: Pain with breathing and Coughing up blood GASTROINTESTINAL: Negative for: Melena, Diarrhea, Heartburn and Abdominal pain MUSCULOSKELETAL: Positive for: Arthralgias and Morning Joint Stiffness Negative for: Myalgias, Muscle weakness and Joint swelling NEUROLOGICAL: Positive for: Headaches and Numbness Negative for: Memory loss SKIN: Positive for: Skin changes and Hair loss Negative for: Rash and Nail changes thinning of the hair in the last 3 yrs no rashes EYES: Positive for: Eye dryness Negative for: Eye pain, Eye redness and visual disturbance CARDIOVASCULAR: Negative for: Chest pain and Leg swelling GENITOURINARY: Negative for: Dysuria and Hematuria HEMATOLOGIC/LYMPHATIC: Negative for: Swollen glands hands and feet always feel very cold ROS GENERAL: fatigue FEVER: at least once a week - up to 100.3. She attributes it to endometriosis WEIGHT CHANGE: none HEAD: negative for, scalp tenderness, jaw claudication, tongue claudication, temporal tenderness + migraines ENT: negative for, sinus tenderness, nasal crusting, epistaxis, ear pain, decreased hearing, sore throat, difficulty swallowing, mouth lesions, voice changes, loud noisy breathing or stridor + post nasal drip EYES: negative for , pain, visual blurring, permanent visual loss, transient visual loss, diplopia, proptosis NECK: negative for, mass, pain, swelling, tenderness RESPIRATORY: + dry cough and sometimes with clear phlegm No hemoptysis + SOB, worse with exertion no chest pain CARDIOVASCULAR: negative for, extremity claudication, digital ischemia, Raynaud's GASTROINTESTINAL: negative for, abdominal pain, vomiting, diarrhea URINARY: negative for, dysuria, hematuria 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 endometriosis PAST SURGICAL HISTORY: PAST SURGICAL HISTORY Procedure Laterality Date tonsillectomy bilateral bunionectomy CURRENT MEDICATIONS: Current Outpatient Medications Medication Sig - Biotin 10,000 mcg cap - cholecalciferol (VITAMIN D-3) 5,000 unit tab - Cyanocobalamin 2,000 mcg TbER Take 1 tablet by mouth once daily. - BREO ELLIPTA 200-25 mcg/dose inhaler - ibuprofen (MOTRIN) 600 mg tablet 600 mg. - Lacto no.76/Bifido/FOS/larch (WOMEN'S PROBIOTIC ORAL) - Norethindrone Acet-Ethinyl Est 1-20 mg-mcg per tablet - yyblu-3h-nib-epa-fish oil 600-1,200 mg cap - multivitamin (MULTIPLE VITAMIN ORAL) Take 1 tablet by mouth once daily. - TURMERIC ORAL - MULTIVITAMIN TAB Take one(1) tablet daily. No current facility-administered medications for this visit. ALLERGIES: Patient has no known allergies. SOCIAL HISTORY: Social History Tobacco Use (more content not included)... [facility] 02-28-2021 Evaluation note Encounter Date Diagnosis Assessment Notes Feb, Wellness examination (ICD-10 - Z00.00) Age appropriate screening & recommendations reviewed & discussed with patient. Feb, Granulomatosis with polyangiitis (ICD-10 - M31.30) See HPI for details on dx. Since last seen patient has been dx with Wegeners. She is seeing pulm, doing well. [facility] Other Evaluation noteNo InformationNort Kog[place] Other Evaluation noteNo assessment information available [facility] Work Phone: Evaluation note* Diagnosis [facility] Diagnosis Kidney living donor evaluation, pre-op- Primary Kidney donor [facility] donor Kid[facility] Diagnosis Kidney donor- Primary Renal donor Kidney [facility] Donor, kidney- Primary [facility] Diagnosis Encounter for preventative adult health care examination- Primary Periodic limb movement disorder Multiple pulmonary nodules Other diseases of lung, not elsewhere classified Irritable bowel syndrome with predominant constipation Mild intermittent asthma without complication ([facility]) Encounter for gynecological examination without abnormal finding Screening for malignant neoplasm of cervix Screening for malignant neoplasm of the cervix Encounter for surveillance of contraceptive pills documented in this encounter [facility] HealthcareHistory general Narrative - Reported* Type Description Date Medical History Polycystic ovaries Medical History Endometriosis Medical History Bunions Medical History Granulomatosis with polyangitis ([facility]) Surgical History laparoscopy for cyst removal on ovaries 2013 Surgical History Laparoscopy for endometriosis Surgical History Tonsilectomy 05/2020 Hospitalization History see above [facility] Other History of Present illness Narrative* She is here for a second opinion. Sx are lifelong She has chronic bronchitis, pulmonary - related issues and has a lot of drainage. She has a lot of fatigue. She was found to have a positive ANCA which kind of correlated with a lot of my other sx - her feet and hands always seem like they are submerged in ice but the rest of her body feels very hot. For 7 yrs, her face gets hot and red, but the rest of her body is ice cold - can last quite awhile - hours. Id she is in a bright room or in sunlight all day, she gets these little dots - they look like the start of a plantar wart She has pain everywhere - legs, ankles, arms deep dull pain. She will pop little blood vessels inmy hands . She has had pain even as a young child and was told that she has growing pains - she hasn't seen rheum as child. Most recently, she was referred to a local rheum but said never saw the dr,just the nurse, and they wouldn't see her because they thought she had GPA. She was sent to [facility], and she states that she was offered any kind of pain medicine that I wanted - yet she couldn't say what she had rambled off - this was at a phone note - per chart, she was offered hcq, but pt refused because no definitive dx was given. The pain is not my biggest complaint by any means - her coldft, her hot face, and her fatiguge ar her problems. She sometimes takes tylenol qhs for a better ni ght's rest but doesn't take very often I know it's not good to take I usually curl up with a heating pad or hot bath to relax She gen sleeps well 7 hrs and wakes at least 1x for BR. She is achy when she gets OOB I sound like a rice krispie treat She used to run, but this made her knees hurt.She uses an exercise bike and does yardwork on [address]. Sometimes she feels like she is draggingherself through it. Her hands swell, mainly upon awakening or with overuse. Gets fevers I also have endometriosis easily 102 [address] about this. There was no pattern to this. +freq BRITO. Lips get very dry sometimes but no sicca. No mouth sores. No raynauds although nailbeds get purple. Had episodes of sharp R-sided CP. Sl SOB - she was dx with asthma - breo helped, and she doesn't get drainage any more. No epistaxis or hemoptysis. A lot of gastrointestinal pain - I want to curl up in a position No other GI. Rare numbness in her hands. * FH - +arthritis. GM - lupus * SH - nonsmoker. No EtOH. No drugs [facility] Work Phone: Reason for referral (narrative)* (Routine) Specialty Diagnoses / Procedures Referred By [facility] Referred To Contact [address] [place] [address] Referral ID Status Reason Start Date Expiration Date Visits Re quested Visits Authorized * Radiology (Routine) - New Request Specialty Diagnoses / Procedures Referred By [facility] Referred To Contact Procedures [facility] Jhonathan Santos MD [address] [place] [address] Referral ID Status Reason Start Date Expiration Date V isits Requested Visits Authorized [id number] New Request 08/23/2023 09/16/2024 1 1 [facility] Summary Purpose Family History No Family History Records FoundUnknown Family Member Name Dates Details Family history of hypertensi on: Father(V17.49, Z82.49) Status:Active Family history of cardiac di sorder: Father(V17.49, Z82.49) Status:Active Family history of chronic ob structive pulmonary disease: Father(V17.6, Z82.5) Status:Active Unknown Family Member Name Dates Details Family history of hypertensi on: Father(V17.49, Z82.49) Status:Active Family history of cardiac di sorder: Father(V17.49, Z82.49) Status:Active Family history of chronic ob structive pulmonary disease: Father(V17.6, Z82.5) Status:Active Relationship Condition Age at Onset Recorded Date/T flo family member Malignant neoplasm of colon Unknown Not Specified Endometriosis Unknown Advance Directives No Advanced Directives Records Found Advance Directive Response Recorded Date/ Time Advance Directives No November 2:24pm Documents on File Type Date Recorded Patient Cloth Mercerizer Back Tender Expl anation HealthCare Power of Nurses Medical Assistants Phlebotomists 08/23/2023 6:54 AM Advance Directives/Living Will 08/23/2023 6:54 AM Date Activated Date Inactivated Comments 08/23/2023 7:39 AM Documents on File Type Date Recorded Patient Cloth Mercerizer Back Tender Expl anation HealthCare Power of Nurses Medical Assistants Phlebotomists 08/23/2023 6:54 AM Advance Directives/Living Will 08/23/2023 6:54 AM Date Activated Date Inactivated Comments 08/23/2023 7:39 AM Chief Complaint * Ref per Dr. Hewitt abnormal labs with poss autoimmune issue. Eval with Dr. carroll with no definitive diagnosis. She continued to offer me all kinds of pain medication and that is not what I want Ordered repeat labs from Dr. Hewitt. CT scan sinus / lung, neg results with exception of small nodule of no concern per Dr. Hewitt. * C/O chronic fatigue I feel like I ran a marathon every day. Bilat foot coldness Joint stiffness with dull achiness head to toe. Red / hot rash on cheeks off and on, significantly out with light exposure. Small lumps with exposure to sunlight, disappearing in approx 3 days. * mother has sever arthritis, hospitalized as at age 17, unsure of diagosis * New diagnosis of asthma x 1 year. Chief Complaint and Reason for Visit Chief Complaint [facility] Reason for Referral Specialty Diagnoses / Procedures Referred By Anna river Referred To Contact Diagnoses Kidney donor Procedures MRI ABDOMEN WITH AND WITHOUT CONTRAST MO MRI, ABDOMEN, COMBO Tayla Mazariegos MD, PhD [address] [place] [address] Referral ID Status Reason Start Date Expiration Date Visits Re quested Visits Authorized [id number] Closed 06/12/2023 07/06/2024 1 1 Specialty Diagnoses / Procedures Referred By Anna river Referred To Contact Diagnoses Kidney donor Procedures ECG Naseem Bagley MD [address] [place] [address] Referral ID Status Reason Start Date Expiration Date V isits Requested Visits Authorized [id number] New Request 05/27/2023 06/20/2024 1 1 Specialty Diagnoses / Procedures Referred By Anna river Referred To Contact Diagnoses Kidney donor Procedures CT ANGIO LIVING KIDNEY DONOR MO CT ANGIO, PELVIS, COMBO, INCL IMAGE PROC Tayla Mazariegso MD, PhD [address] [place] [address] Referral ID Status Reason Start Date Expiration Date Visits Re quested Visits Authorized [id number] Closed 05/09/2023 06/02/2024 1 1 Additional Source Comments INFORMATION SOURCE (unrecogn ized section and content) DATE CREATED AUTHOR 02/23/2018 [facility] DATE CREATED AUTHOR AUTHOR'S ORGANIZ ATION 06/01/2021 [facility] DATE CREATED AUTHOR AUTHOR'S ORGANIZ ATION 07/13/2021 [facility] DATE CREATED AUTHOR AUTHOR'S ORGANIZ ATION 08/02/2021 [facility] DATE CREATED AUTHOR AUTHOR'S ORGANIZ ATION 03/04/2022 [facility] DATE CREATED AUTHOR AUTHOR'S ORGANIZ ATION 11/24/2022 [facility] DATE CREATED AUTHOR AUTHOR'S ORGANIZ ATION 12/23/2023 [facility] DATE CREATED AUTHOR AUTHOR'S ORGANIZ ATION 01/11/2024 [facility] EPIC REASON FOR VISIT (unrecogniz ed section and content) Specialty Diagnoses / Procedures Referred By Contac t Referred To Contact Diagnoses Kidney donor Procedures CT ANGIO LIVING KIDNEY DONOR MO CT ANGIO, PELVIS, COMBO, INCL IMAGE PROC Tayla Mazariegos MD, PhD [address] [place] [address] Referral ID Status Reason Start Date Expiration Date Visits Re quested Visits Authorized [id number] Closed 05/09/2023 06/02/2024 1 1 Reason Comments Kidney Donor Evaluation Reason Comments Kidney Donor Evaluation Specialty Diagnoses / Procedures Referred By Contac t Referred To Contact Diagnoses Kidney donor Procedures MRI ABDOMEN WITH AND WITHOUT CONTRAST MO MRI, ABDOMEN, COMBO Tayla Mazariegos MD, PhD [address] [place] [address] Referral ID Status Reason Start Date Expiration Date Visits Re quested Visits Authorized [id number] Closed 06/12/2023 07/06/2024 1 1 Specialty Diagnoses / Procedures Referred By Contac t Referred To Contact Diagnoses Kidney donor Kidney donor [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 Pt would like to discuss control.Pt happy with current OCP. Menses silent with OCP, take OCP continuously. Denies bowel/bladder/breast concerns. Care Teams (unrecognized sec tion and content) Team Status: Active Member Role Status Dates Tonia Morin DO Primary Care Provider Active Team Status: Inactive Member Role Status Dates Tonia Morin DO Primary Care Provider Active Wes Chaves DO [facility] Attending Provider Active Art History Professor Relationship Specialty Start Date End Date [facility] [place], Other [address] [place], [place] [phone] PCP - X Ray Technologist Transplant 04/16/23 Fatou Marr DO [address] [facility] [place] [address] PCP - General Internal Medicine 06/10/23 Art History Professor Relationship Specialty Start Date End Date [facility], [facility] [address] [place], [place] [phone] PCP - X Ray Technologist Transplant 04/16/23 Fatou Marr DO [address] [place] [address] PCP - General Internal Medicine 06/10/23 Art History Professor Relationship Specialty Start Date End Date [facility], [facility] [address] [place] [address] PCP - X Ray Technologist Transplant 04/16/23 Fatou Marr DO [address] [place] [address] PCP - General Internal Medicine 06/10/23 Art History Professor Relationship Specialty Start Date End Date [facility], Other [address] [place] [address] PCP - X Ray Technologist Transplant 04/16/23 Fatou Marr DO [address] [place] [address] PCP - General Internal Medicine 06/10/23 Art History Professor Relationship Specialty Start Date End Date [facility], Other [address] [place], [place] [phone] PCP - X Ray Technologist Transplant 04/16/23 Fatou Marr DO [address] [place] [address] PCP - General Internal Medicine 06/10/23 Art History Professor Relationship Specialty Start Date End Date [facility] [place], Other [address] [place] [address] PCP - X Ray Technologist Transplant 04/16/23 Fatou Marr DO [address] [place] [address] PCP - General Internal Medicine 06/10/23 Art History Professor Relationship Specialty Start Date End Date [facility] [place], Other [address] [place] [address] PCP - X Ray Technologist Transplant 04/16/23 Fatou aMrr DO [address] [place] [address] PCP - General Internal Medicine 06/10/23 Art History Professor Relationship Specialty Start Date End Date [facility], Other [address] [place] [address] PCP - X Ray Technologist Transplant 04/16/23 Fatou Marr DO [address] [place] [address] PCP - General Internal Medicine 06/10/23 Art History Professor Relationship Specialty Start Date End Date Fatou Marr DO PCP - General Internal Medicine 10/15/22 Fatou Marr DO [address] [place] [address] PCP - Medical [employer] 11/09/14 03/10/99 Goals (unrecognized section and content) Goals may be documented in a n alternate section Scheduled Active and Recently Administ ered Medications (unrecognized section and content) Medication Order 08/23/2023 08/24/2023 08/25/2023 Acetaminophen (TYLENOL) tablet 650 mg 650 mg, Oral, EVERY 6 HOURS, First dose on Sat08/23/23 at 1800, Until Discontinued, Maximum dose of acetaminophen is 4000 mg from all sources in 24 hours., Post-op/Post-Proc 1733 (Given - Provider: Zakia Moya, CHANDRAKANT)2318 (Given - Provider: Yesica Stallworth, CHANDRAKANT) 0607 (Given - Provider: Yesica Stallworth, CHANDRAKANT)1102 (Given - Provider: Zakia Moya RN)1701 (Given - Provider: Zakia Moya RN)2344 (Given - Provider: Yesica Stallworth, CHANDRAKANT) 0624 (Given - Provider: Yesica Stallworth, CHANDRAKANT)1108 (Given - Provider: Crystal Cao RN)1800 (Canceled Entry - Provider: System Discharge - Comment: Automatically canceled at discontinue of medication order) Docusate (COLACE) capsule 100 mg 100 mg, Oral, 2 TIMES DAILY, First dose on Sat08/23/23 at 1700, Until Discontinued, Post-op/Post-Proc 173 (Given - Provider: Zakia Moya RN) 08 (Given - Provider: Zakia Moya RN)170 (Given - Provider: Zakia Moya RN) 09 (Given - Provider: Crystal Cao RN)170 (Canceled Entry - Provider: System Discharge - Comment: Automatically canceled at discontinue of medication order) Yjhgmqoqqcv-Xbgymiwky-P ilant 200-62.5-25 MCG/ACT AEPB 1 puff ++Patient supplied++ 1 puff, Inhalation, DAILY, First dose on Sat08/24/23 at 1115, Until Discontinued 0900 (Given - Provider: Zakia Moya RN - Comment: Pt took after getting the okay from Dr. Mazariegos. Took prior to RN entering room) 925 (Given - Provider: Crystal Cao RN) Gabapentin (NEURONTIN) capsule 100 mg 100 mg, Oral, DAILY AT BEDTIME, First dose on Sat08/23/23 at 2100, Until Discontinued, Post-op/Post-Proc 2017 (Given - Provider: Yesica Stallworth RN) 193 (Given - Provider: Yesica Stallworth RN) Heparin injection 5,000 Units 5,000 Units, Subcutaneous, EVERY 8 HOURS (0800/1600/2200), First dose on Sat08/23/23 at 1600, Until Discontinued, Post-op/Post-Proc 1700 (Not Given - Provider: Zakia Moya RN - Reason: Other - Comment: received dose at 1200)2017 (Given - Provider: Yesica Stallworth RN) 830 (Given - Provider: Zakia Moya RN)1700 (Given - Provider: Zakia Moya RN)221 (Given - Provider: Yesica Stallworth RN) 925 (Given - Provider: Crystal Cao RN)1600 (Canceled Entry - Provider: System Discharge - Comment: Automatically canceled at discontinue of medication order) Ketorolac (TORADOL) injection 15 mg (COMPLETED) 15 mg, Intravenous, EVERY 6 HOURS, 8 doses, First dose on Sat08/23/23 at 1800, Last dose on Sat08/25/23 at 1200, Post-op/Post-Proc 1734 (Given - Provider: Zakia Moya RN) 0043 (Given - Provider: Yesica Stallworth RN)0608 (Given - Provider: Yesica Stallworth RN)1102 (Given - Provider: Zakia Moya RN)1702 (Given - Provider: Zakia Moya, CHANDRAKANT)2344 (Given - Provider: Yesica Stallworth, CHANDRAKANT) 0624 (Given - Provider: Yesica Stallworth RN)1108 (Given - Provider: Crystal Cao RN) norethindrone-ethinyl estradiol (MICROGESTIN 03/30) 1-20 MG-MCG tablet ++Patient supplied++ 1 tablet, Oral, DAILY, First dose on Sat08/24/23 at 1215, Until Discontinued 0900 (Given - Provider: Zakia Moya RN - Comment: Pt took after getting the okay from Dr. Mazariegos. Took prior to RN entering room) 0926 (Given - Provider: Crystal Coa RN) Promethazine (PHENERGAN) tablet 25 mg (COMPLETED) 25 mg, Oral, ONCE, 1 dose, On Sat08/25/23 at 1300 1533 (Given - Provider: Crystal Cao RN) Scopolamine (TRANSDERM-SCOP) patch 1 patch(Linked Group 1) 1 patch, Transdermal, ONCE, 1 dose, On Sat08/23/23 at 0945, Apply patch to site behind the ear. Rotate sites for each application. Do not cut or alter patch. Each patch delivers 1 mg over 72 hours., Pre-op/Pre-Proc 0938 (Patch Applied - Provider: Anum Wyatt RN) 1637 (Due: Patch Removed - Provider: System Discharge - Comment: Time automatically adjusted from order being discontinued) Senna (SENOKOT) tablet 8.6 mg 8.6 mg, Oral, 2 TIMES DAILY, First dose on Sat08/23/23 at 1700, Until Discontinued, Post-op/Post-Proc 1734 (Given - Provider: Zakia Moya RN) 0831 (Given - Provider: Zakia Moya RN)1701 (Given - Provider: Zakia Moya RN) 0926 (Given - Provider: Crystal Cao RN)1700 (Canceled Entry - Provider: System Discharge - Comment: Automatically canceled at discontinue of medication order) Continuous Medication Order 08/23/2023 08/24/2023 08/25/2023 Sodium chloride 0.9% IV solution (CANCELED) Intravenous, at 75 mL/hr, CONTINUOUS, Starting on Sat08/23/23 at 0745, Until Sat08/23/23 at 1550, Pre-op/Pre-Proc 0835 ($$New Bag$$ - Provider: Tonie Avalos RN)1626 (Stopped - Provider: Zakia Moya RN) Sodium chloride 0.9% IV solution (CANCELED) Intravenous, at 100 mL/hr, CONTINUOUS, Starting on Sat08/23/23 at 1600, Until 08/24/23 at 0820, Post-op/Post-Proc 1612 ($$New Bag$$ - Provider: Batool Corado, CHANDRAKANT)2320 (Rate/Dose Verify - Provider: Zakia Moya RN) 0618 (Stopped - Provider: Zakia Moya RN)0618 ($$New Bag$$ - Provider: Yesica Stallworth RN)0833 (Stopped - Provider: Zakia Moya, CHANDRAKANT) PRN Medication Order 08/23/2023 08/24/2023 08/25/2023 ceFAZolin (ANCEF) 2 g in dextrose 100 mL premix IVPB (COMPLETED) 2 g, Intravenous, Administer over 30 Minutes, CLAIM TECHNICIAN TO PROCEDURE, 1 dose, Starting on Sat08/23/23 at 0739, Until Sat08/23/23 at 1218, Other, surgical prophylaxis, Initiate antibiotic administration 30-60 minutes prior to surgical incision and complete administration prior to surgical incision., Pre-op/Pre-Proc 1203 ($$New Bag$$ - Provider: Aristides George APRN-HIGH SCHOOL HISTORY TEACHER) Heparin injection 5,000 Units (COMPLETED) 5,000 Units, Subcutaneous, CLAIM TECHNICIAN TO PROCEDURE, 1 dose, Starting on Sat08/23/23 at 0739, Until Sat08/23/23 at 1142, Other, Pre-op/Pre-Proc 1142 (Given - Provider: Isabel Snell RN) HYDROmorphone (DILAUDID) injection 0.5 mg (CANCELED) 0.5 mg, Intravenous, EVERY 10 MINUTES NEEDED, 8 doses, Starting on Sat08/23/23 at 1453, Until Sat08/23/23 at 1550, Moderate Pain, Severe Pain, May give a total of 4mg in PACU., Recovery 1515 (Given - Provider: Lissette Weaver RN) Morphine (PF) injection 2 mg ()(Linked Group 2) 2 mg, Intravenous, EVERY 4 HOURS NEEDED, Starting on Sat08/23/23 at 1557, Until 08/24/23 at 1556, Moderate Pain, Severe Pain, 2nd Line Pain Control, Use as initial dose. Higher dose may be administered if lower dose was previously documented as ineffective and did not result in adverse effects (RR<10, decrease in level of consciousness). For severe pain IF patient unable to tolerate PO., Post-op/Post-Proc 1607 (Given - Provider: Batool Corado RN) Ondansetron 4mg/2ml (ZOFRAN) injection 4 mg 4 mg, Intravenous, EVERY 4 HOURS NEEDED, Starting on Sat08/23/23 at 1557, Until 08/25/23 at 1837, Nausea / Vomiting, 1st Line, Post-op/Post-Proc 2130 (Given - Provider: Yesica Stallworth RN) 2222 (Given - Provider: Yesica Stallworth RN) simethicone (MYLICON) chewable tablet 80 mg 80 mg, Oral, EVERY 4 HOURS NEEDED, Starting on Sat08/23/23 at 1557, Until 08/25/23 at 1837, Gas, Post-op/Post-Proc 1746 (Given - Provider: Zakia Moya RN) 0831 (Given - Provider: Zakia Moya RN) traMADol (ULTRAM) tablet 50 mg 50 mg, Oral, EVERY 6 HOURS NEEDED, Starting on Sat08/23/23 at 1557, Until 08/25/23 at 1837, Mild Pain, Moderate Pain, First line pain, Post-op/Post-Proc 1745 (Given - Provider: Zakia Moya, CHANDRAKANT) 0831 (Given - Provider: Zakia Moya RN) Linked Groups Order Group 1: Scopolamine (TRANSDERM-SCOP) patch 1 patchJump to med 1 patch, Transdermal, ONCE, 1 dose, On Sat08/23/23 at 0945, Apply patch to site behind the ear. Rotate sites for each application. Do not cut or alter patch. Each patch delivers 1 mg over 72 hours., Pre-op/Pre-Proc And VERIFY LINKED PATCH PLACEMENT (CANCELED) Other, EVERY 12 HOURS, First dose on Sat08/23/23 at 0945, Until Discontinued, Confirm continued adhesion of scopolamine 1.5 mg/72hr patch at documented site. Group 2: Morphine (PF) injection 2 mg ()Jump to med 2 mg, Intravenous, EVERY 4 HOURS NEEDED, Starting on Sat08/23/23 at 1557, Until 08/24/23 at 1556, Moderate Pain, Severe Pain, 2nd Line Pain Control, Use as initial dose. Higher dose may be administered if lower dose was previously documented as ineffective and did not result in adverse effects (RR<10, decrease in level of consciousness). For severe pain IF patient unable to tolerate PO., Post-op/Post-Proc Or Morphine sulfate (PF) injection 4 mg () 4 mg, Intravenous, EVERY 4 HOURS NEEDED, Starting on Sat08/23/23 at 1557, Until 08/24/23 at 1556, Moderate Pain, Severe Pain, 2nd Line Pain Control, Higher dose may be administered if lower dose was previously documented as ineffective and did not result in adverse effects (RR<10, decrease in level of consciousness). Decrease back to lower dose if patient has adverse effects, or no PRN used in previous 12 hours. For severe pain IF patient unable to tolerate PO., Post-op/Post-Proc FOR RECORDS PERTAINING TO PATIENTS WHO ARE OR HAVE BEEN ENROLLED IN A CHEMICAL DEPENDENCY/SUBSTANCEABUSE PROGRAM, SOME INFORMATION MAY BE OMITTED. This clinical summary was aggregated from multiple sources. Caution should be exercised in using it in the provision of clinical care. This summary normalizes information from multiple sources, and as a consequence, information in this document may materially change the coding, format and clinical context of patient data. In addition, data may be omitted in some cases. CLINICAL DECISIONS SHOULD BE BASED ON THE PRIMARY CLINICAL RECORDS. [facility]. provides no warranty or guarantee of the accuracy or completeness of information in this document.
[2024-02-04 15:34] LABS: Estimated GFR (African America 59 (>=60 mL/min/1.73m^2); Estimated GFR (Non-African Ame 49 (>=60 mL/min/1.73m^2)
[2024-02-04 15:35] LABS: Creatinine Urine Random 38.76 mg/dL (20.00-300.00); Microalbumin Urine Random <1.3 mg/dL (<=30.0); Total Protein Urine Random <6.0 mg/dL (<=11.9)
== END 2024-02-04 15:00 | disposition home or self-care (01) ==
LOC: LAB 15:03
PROVIDERS: PCP Internal Medicine
DX: Z52.4 Kidney donor (principal)
CPT/HCPCS: 36415; 82043; 82565; 82570; 84156

== ENCOUNTER 2024-08-13 10:15 | Outpatient (OUT) | payer OTHER, SELFPAY ==
[2024-08-13 10:43] LABS: Microalbumin Urine Random <1.3 mg/dL (<=30.0); Protein Creatinine Ratio Urine 0.12; Total Protein Urine Random 13.1 mg/dL (<=11.9)
[2024-08-13 11:02] LABS: Estimated GFR (African America >60 (>=60 mL/min/1.73m^2); Estimated GFR (Non-African Ame 50 (>=60 mL/min/1.73m^2)
== END 2024-08-13 10:16 | disposition home or self-care (01) ==
LOC: LAB 10:18
PROVIDERS: PCP Internal Medicine
DX: Z52.4 Kidney donor (principal)
CPT/HCPCS: 36415; 82043; 82565; 82570; 84156

== ENCOUNTER 2025-01-06 13:36 | Outpatient (OUT) | payer OTHER, SELFPAY ==
--- OUTSIDE RECORDS SUMMARY | 2025-01-05 09:45 | XMS_ITS | Encounter Summary ---
Author Organization [facility] Address [address] [place] [address] Care Team Providers Care Retail Brand Ambassador Name Role Phone Fatou Kelly DO Primary Care Provider Fatou Kelly DO Unavailable [phone] Reason for Referral * Imaging (Routine) - AuthorizedSpecialtyDiagnoses / ProceduresReferred By ContactReferred To ContactRadiology Diagnoses Positive P-ANCA titer Elevated platelet count New onset headache Procedures MR brain w and wo contrast routine Fatou Kelly DO [address] [place] [address] Phone: tel: fax: [facility] Schedule fax: Referral IDStatusReasonStart DateExpiration DateVisits RequestedVisits [id number]/28/20254/ Reason for Visit * ReasonCommentsMigraine Encounter Details DateTypeDepartmentCare Team (Latest Contact Info)Sxvbznwfclb72/28/2025 9:45 AM EDTOffice Visit [facility] [address] [place] [phone] Fatou Kelly DO [address] [place] [address] New onset headache (Primary Dx); Positive P-ANCA titer; Elevated platelet count; Episodic paroxysmal hemicrania, not intractable; Kidney donor Social History Tobacco UseTypesPacks/DayYears UsedDateSmoking Tobacco: NeverSmokeless Tobacco: Never Tobacco Cessation:Counseling Given: Not Answered Alcohol UseStandard Drinks/WeekCommentsNever0 (1 standard drink = 0.6 oz pure alcohol)Caffeine intake: noneCommentsUnknownSex and Gender Information ValueDate RecordedSex Assigned at GdsqxEzxhie47/31/2023 10:34 AM EDTLegal Sex Raspcc5305/23/2022 6:46 PM EDTGender QvrkxemfMlwako99/31/2023 10:34 AM EDTSexual MsxlpzxemchUsdqdygm45/31/2023 10:34 AM EDTOccupationIndustryJob Start DateJob End DatePhysical Therapist AssistantNot on fileNot on fileNot on filedocumented as of this encounter Last Filed Vital Signs Vital SignReadingTime TakenCommentsBlood Qktgvtaq095/7401/05/2025 10:03 AM EDT Tkwll525501/05/2025 10:03 AM EDTTemperature--Respiratory Rate--Oxygen Saturation 98%01/05/2025 10:03 AM EDTInhaled Oxygen Concentration--Bapfch02.7 kg (140 lb 6.4 oz)01/05/2025 10:03 AM SEQKvlecm285.5 cm (5' 2 )01/05/2025 10:03 AM EDTBody [...] years, but has mainly discussed with her CYTOTECHNOLOGIST/HISTOTECHNOLOGIST as she has seemed to correlate the [...] UT) capsule 1 capsule, Every 24 hours Byectwcavul-Ifzmjrpaf-Iuwneo (Trelegy Ellipta) 200-62.5-25 MCG/ACT aerosol powder 1 [...] HEMOGRAM CBC WITHOUT DIFF ([facility]) TSH Sedimentation rate, automated [...] HEMOGRAM CBC WITHOUT DIFF ([facility]) Comprehensive metabolic panel TSH [...] previously scheduled. Fatou Kelly D.O. Board Certified Patrol Lady [1] No Known Allergies [2] Patient Active [...] Plan of Treatment DateTypeDepartmentCare Team (Latest Contact Info)Fhtgbsqkord91/03/2025 3:30 PM ESTOffice Visit MATTHI[facility]Mar PurdyMillers [place] [address] [place] [phone] May Thomas, DO [address] [place] [address] 02/25/2025 3:30 PM ESTOffice Visit [facility] [address] [place] [phone] Fatou Kelly, [address] [place] [address] 08/25/2025 10:00 AM EDTOffice Visit [facility] [address] [place] [phone] May Thomas, DO [address] [place] [address] NameTypePriorityAssociated DiagnosesOrder ScheduleHEMOGRAM CBC WITHOUT DIFF ([facility])LabRoutine Positive P-ANCA titer Elevated [...] DO [address] [place] [address] PCP - GeneralInternal Medicine10/15/22 Fatou Kelly DO [address] [place] [address] PCP - Medical [place] [employer]11/10/1511documented as of this encounter
--- OUTSIDE RECORDS SUMMARY | 2025-01-06 13:47 | XMS_ITS | Clinical Summary ---
Author Organization [facility] Address [address] [place] [address] Care Team Providers Care Enamel Shader Name Role Phone Fatou Kelly DO Primary Care Provider Fatou Kelly DO Unavailable [phone] Allergies No known active allergies Medications MedicationSigDispense QuantityRefillsLast FilledStart DateEnd DateStatus Multiple Vitamins-Minerals (MULTIVITAMIN GUMMIES ADULTS PO) Take 1 tablet by mouth in the morning.Active cholecalciferol (Vitamin D-3) 25 MCG (1000 UT) capsule Take 1 capsule by mouth 1 (one) time each day at the same time.Active acetaminophen (Tylenol) 325 MG tablet Take 325 mg by mouth every 6 (six) hours. Take two tablets as neededActive Crssgimlmvy-Htntpwwwn-Gfckmi (Trelegy Ellipta) 200-62.5-25 MCG/ACT aerosol powder Inhale 1 puff in the morning. Rx'd by Dr. Hewitt.Active albuterol HFA 90 mcg/act inhaler Inhale 2 puffs every 4 (four) hours if needed for wheezing or shortness of breath. Rx'd by Dr. HewittActive Melatonin [address] 5 mg under the tongue as needed at bedtime (sleep issues).Active norethindrone-ethinyl estradiol (Loestrin 03/30, ,) 1-20 MG-MCG tablet Indications:Encounter for surveillance of contraceptive pillsTake 1 tablet by mouth Daily Take continuous. 84 tablet [id number] Rimegepant Sulfate (Nurtec) 75 MG tablet dispersible Indications:Episodic paroxysmal hemicrania, not intractableTake 75 mg by mouth Daily as needed (migraine) 10 tablet 5Active Turmeric 500 MG capsule Take 1 tablet by mouth 1 (one) time each day.01/05/2025Discontinued(Therapy completed) Active Problems ProblemNoted DateDiagnosed DateEpisodic paroxysmal hemicrania, not intractable 01/05/2025 Overview (01/05/2025): 12/2024- samples of Nurtec Assessment & Plan (01/05/2025 1:36 PM EDT): Discussed using meds for acute treatment of [...] Rx to see is insurance will cover. 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 She reports the recipient (a friend of hers) is doing very well. -She will be followed by the Transplant Team for 2 years Irritable bowel syndrome with predominant bckfsfdxxhbo69/27/2023 Assessment & Plan (03/06/2023 9:14 AM EST): While she reports that her overall sx are tolerable, she does worry a little due to family hx of bowel issues. She reports she tends to follow a pretty healthy diet, but could maybe do a little more. She will work on this to see if that helps. If she has any worsening issues, would consider referral to GI for possible colonoscopy Periodic limb movement noczhosv76/01/2023 Overview (03/06/2023): PSG done 01/30/2022: no evidence of MARJORIE. +PLM with 239 events. Limb movement index 44.7/hr with 24.3 causing arousals Medication options have been discussed with her by her art dealer (Dr Hewitt); ie Mirapex, Neurontin -She has tried both neurontin and mirapex, but did not really not much improvement with some SE. Soshe just takes melatonin 5mg when feeling more restless at night. Positive P-ANCA titer11/09/2022 Assessment & Plan (01/05/2025 1:23 PM EDT): Since having this condition predisposes her to microscopic polyangiitis and other forms of vasculitis, need to assess for this as a cause for her new (worsening) headaches. Will get labs and MRI (with and without contrast) to better assess for evidence of inflammation Multiple pulmonary edotzhj3911/09/2022 Overview (03/06/2023): she follows with PULM/Dr Hewitt. The areas have been stable Saidevvxksf50/01/2023 Overview (11/09/2022): STOP-BANG-3; [place]-12 PSG 01/2022- no evidence of MARJORIE Chronic pain grtybtny01/01/2023 Overview (11/13/2022): -She reports that since the age of 6, she has been taken to the doctor because of severe body pain . When she was younger, the doctors said she had growing pains . -She reports pain more in muscles than in her joints, eps forearms. 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 She has been seen by [facility] - Dr Zhu at [facility] and then 07/11/2021 she got a 2nd opinionfrom Dr Rick Al at ) and dx with fibromyalgia, but she does not agree with this dx. There has also been discussion of MCTD Major depressive disorder, single episode, fcddkoifakr04/31/2023Mild intermittent asthma without norjfscannfu57/31/2023 Overview (03/06/2023): Follows with Dr. Hewitt PFT 01/23/2021 She is using Trelegy and has reported significant improvement in her symptoms (on Spiriva and Breo in the past). 02/2023- she reports overall sx control have been very good since starting Trelegy (no recent use of Albuterol rescue) Ykyeetrgjavfu04/31/2023 Overview (11/08/2022): Follows with Dr. Thomas Encounters DateTypeDepartmentCare CiqrMjuxqwkzija05/28/2025 9:45 AM EDTOffice Visit [facility] [address] [place] [phone] Fatou Kelly, New onset headache (Primary Dx); Positive P-ANCA titer; Elevated platelet count; Episodic paroxysmal hemicrania, not intractable; Kidney donor01/05/20256836Zclexq28/27/2025Travelfrom Last 3 Months Immunizations ImmunizationAdministration DatesNext DueHPV, Umjshimiysvf35/23/2010,02/28/2009, 12/24/2008Td (adult), 5 Lf tetanus toxoid, preservative free, /30/1999 Family History Medical HistoryRelationNameCommentsAlcohol abuseBrotherDavid RossDrug abuse BrotherDavid Rosssubstance abuseBrotherDavid RossAlcohol abuseFatherDarrell Ross AsthmaFatherDarrell RossCOPDFatherDarrell RossCoronary artery diseaseFather Edward RossHypertensionFatherDarrell Rosssusbstance abuseFatherDarrell Ross Crohn's diseaseFather's Sister 1LupusFather's Sister 1Alcohol abuseFather's Sister 2Kathy RossDrug abuseFather's Sister 2Kathy RossAlcohol abuseFather's Sister 3Kathy RossDrug abuseFather's Sister 3Kathy RossCarcinoma in situ of esphagusMaternal GrandfatherThomas DzobaCoronary artery diseaseMaternal GrandfatherThomas DzobaDiabetesMaternal GrandfatherThomas DzobaHeart disease Maternal GrandfatherThomas DzobaHyperlipidemiaMaternal GrandfatherThomas Dzoba HypertensionMaternal GrandfatherThomas Dzobabladder cancerMaternal Grandfather Shailesh DzobaArthritisMaternal GrandmotherAlice DzobaHeart diseaseMaternal GrandmotherAlice DzobaHypertensionMaternal GrandmotherAlice DzobaLupusMaternal GrandmotherAlice DzobaAlcohol abuseMotherCatherine RossArthritisMotherCatherine RossDiverticulosisMotherCatherine RossEndometriosisMotherCatherine Ross HypertensionMotherCatherine RossColon cancerMother's Sister 1dx in her 40sLupus Mother's Sister 1Alcohol abuseMother's Sister 2Donna KnowlinCancerMother's Sister 2Donna KnowlinAlcohol abuseMother's Sister 3Donna KnowlinStrokePaternal GrandfatherDavid Rossliver cancerPaternal GrandmotherRelationNameStatusComments BrotherDavid Ross1, healthyFatherDarrell RossDeceasedFather's Sister 1Father's Sister 2Kathy RossAliveFather's Sister 3Kathy RossAliveMaternal Grandfather Shailesh DzobaAliveMaternal GrandmotherAlice DzobaMotherCatherine RossMother's Sister 1Mother's Sister 2Donna KnowlinAliveMother's Sister 3Donna KnowlinAlive Paternal GrandfatherDavid RossPaternal Grandmother Social History Tobacco UseTypesPacks/DayYears UsedDateSmoking Tobacco: NeverSmokeless Tobacco: Never Tobacco Cessation:Counseling Given: Not Answered Alcohol UseStandard Drinks/WeekCommentsNever0 (1 standard drink = 0.6 oz pure alcohol)Caffeine intake: noneCommentsUnknownSex and Gender Information ValueDate RecordedSex Assigned at XqziaDapwvu87/31/2023 10:34 AM EDTLegal Sex Qccntw3305/23/2022 6:46 PM EDTGender VhdhnlfeOqfttt15/31/2023 10:34 AM EDTSexual TsvjefrqgujPcchycyc50/31/2023 10:34 AM EDTOccupationIndustryJob Start DateJob End DatePhysical Therapist AssistantNot on fileNot on fileNot on file Last Filed Vital Signs Vital SignReadingTime TakenCommentsBlood Counvqvx288/7410 10:03 AM EDT Otbnk4282 10:03 AM EDTTemperature--Respiratory Rate--Oxygen Saturation 98%01/05/2025 10:03 AM EDTInhaled Oxygen Concentration--Arvzsj74.7 kg (140 lb 6.4 oz)01/05/2025 10:03 AM QVWDskqsw352.5 cm (5' 2 )01/05/2025 10:03 AM EDTBody Mass Index25.6801/05/2025 10:03 AM EDT Plan of Treatment DateTypeDepartmentCare Team (Latest Contact Info)Klxrrsazqki16/03/2025 3:30 PM ESTOffice Visit [facility] [address] [place] [phone] May Thomas, DO [address] [place] [address] 02/25/2025 3:30 PM ESTOffice Visit [facility] [address] [place] [phone] Fatou Kelly, DO [address] [place] [address] 08/25/2025 10:00 AM EDTOffice Visit [facility] [address] [place] [phone] May Thomas, DO [address] [place] [address] Health MaintenanceDue DateLast DoneCommentsMMR Vaccines (1 of 1 - Standard series)05/29/1988DTaP/Tdap/Td Vaccines (2 - Tdap)Varicella Vaccines (1 of 2 - 13+ 2-dose series)05/29/2000Hepatitis B Vaccines (1 of 3 - 19+ 3-dose series)05/29/2006Pneumococcal Vaccine: Pediatrics (0 to 5 Years) and At-Risk Patients (6 to 64 Years) (1 of 2 - PCV)05/29/2006COVID-19 Vaccine (1 - season)2024Influenza Vaccine (#1)Pap Smear , 12/18/2022ervical Cancer Zvdullqpa29/10/2028HPV/Cotest , 11/23/2021, 11/17/2020, Additional history existsHPV IhxtpasaNbngvnqza20/23/2010, 02/28/2009, 12/24/2008HIB VaccinesAged OutNo longer eligible based on patient's age to complete this topicHepatitis A VaccinesAged OutNo longer eligible based on patient's age to complete this topicIPV Vaccines Aged OutNo longer eligible based on patient's age to complete this topic Meningococcal B VaccineAged OutNo longer eligible based on patient's age to complete this topicMeningococcal VaccineAged OutNo longer eligible based on patient's age to complete this topicRotavirus VaccinesAged OutNo longer eligible based on patient's age to complete this topic Procedures Procedure NamePriorityDate/TimeAssociated DiagnosisCommentsTHINPREP TIS PAP W/REFL HPV MRNA E6/U9Oahekcr65/10/2023 9:04 AM EDT Screening for malignant neoplasm of cervix from Last 3 Months or Most Recently Relevant to Health Maintenance Results * THINPREP TIS PAP W/REFL HPV MRNA E6/E7 (12/18/2022 9:04 AM EDT)ComponentValue Ref RangeTest MethodAnalysis TimePerformed AtPathologist SignatureCLINICAL INFORMATIONQUESTComment:CERVICALLMPQUESTComment:SILENT WITH OCPPREV. PAPQUEST Comment:NONE GIVENPREV. BXQUESTComment:NONE GIVENSOURCEQUESTComment:None given STATEMENT OF ADEQUACYQUESTComment: Satisfactory for evaluation. Endocervical/transformation zone component present. INTERPRETATION/RESULTQUESTComment: Cytology Results: Negative for intraepithelial lesion or malignancy. CYTOTECHNOLOGISTQUESTComment: DMK CT(ASCP) CT screening location: [place] [address]. REVIEW CYTOTECHNOLOGISTQUESTComment: PEREECE(ASCP) CT screening location: [facility], [address] [place] [address], [place] [address]. (ALWAYS MESSAGE)QUESTComment: EXPLANATORY NOTE: The Pap is a screening test for cervical cancer. It is not a diagnostic test and is subject to false negative and false positive results. It is most reliable when a satisfactory sample, regularly obtained, is submitted with relevant clinical findings and history, and when the Pap result is evaluated along with historic and current clinical information. EFFECTIVE FEBRUARY 04, 2023, the version of ThinPrep you ordered, commonly known as manual ThinPrep, will be DISCONTINUED. An alternative form of ThinPrep, called ThinPrep Imaging, will continue to be available. For a copy of the client communication (TIS Client Letter) showing TIS test codes, see [email or web address].[email or web address], and navigate to [employer]>Physician Materials>TIS Client Letter. You can also call for test code assistance. Specimen (Source)Anatomical Location / LateralityCollection Method / Volume Collection TimeReceived TimeVaginal Fluid12/18/2022 9:04 AM EDT1 4:27 AM EDT Narrative Resulting Agency Comment Performing Organization Information ?Site ID: [id number] ?Name: [facility] ?Address: [address] [place] [id number] ?Director: Ilya Canchola MD Authorizing ProviderResult TypeResult StatusKatstuart Thomas [facility] ORDERABLESFinal ResultPerforming OrganizationAddressCity/State/ZIP CodePhone Number [facility] from Last 3 Months or Most Recently Relevant to Health Maintenance Insurance Care Teams Team MemberRelationshipSpecialtyStart DateEnd Date Fatou Kelly DO [address] [facility] [address] [place] [address] PCP - GeneralInternal Medicine10/15/22 Fatou Kelly DO [address] [facility] [address] [place] [address] PCP - Medical [facility]11/10/1511
--- OUTSIDE RECORDS SUMMARY | 2025-01-06 13:47 | XMS_ITS | Encounter Summary ---
Author Organization [facility] Address [address] [place] [address] Care Team Providers Care Grab Jack Man Name Role Phone Fatou Kelly DO Primary Care Provider Fatou Kelly DO Unavailable [phone] Encounter Details DateTypeDepartmentCare Team (Latest Contact Info)Cgvkmxffbmv17/27/2025Travel Social History Tobacco UseTypesPacks/DayYears UsedDateSmoking Tobacco: NeverSmokeless Tobacco: NeverAlcohol UseStandard Drinks/WeekCommentsNot Currently0 (1 standard drink = 0.6 oz pure alcohol)Caffeine intake: noneCommentsUnknownSex and Gender InformationValueDate RecordedSex Assigned at LdbzhVfcgkc79/31/2023 10:34 AM EDT Legal RheKqizfl91/15/2023 6:46 PM EDTGender GwtfbbwrWabhmu79/31/2023 10:34 AM EDTSexual QfkjwbdtmztWewvrgel72/31/2023 10:34 AM EDTOccupationIndustryJob Start DateJob End DatePhysical Therapist AssistantNot on fileNot on fileNot on file documented as of this encounter Plan of Treatment DateTypeDepartmentCare Team (Latest Contact Info)Qmnkkzebifz52/03/2025 3:30 PM ESTOffice Visit [facility] [address] [place] [phone] Rinkes, May E, DO [address] [place] [address] 02/25/2025 3:30 PM ESTOffice Visit [facility] [address] [place] [phone] Fatou Kelly, DO [address] [place] [address] 08/25/2025 10:00 AM EDTOffice Visit [facility] [address] [place] [phone] Mya Thomas, DO [address] [place] [address] documented as of this encounter Visit Diagnoses Not on filedocumented in this encounter Care Teams Team MemberRelationshipSpecialtyStart DateEnd Date Fatou Kelly DO [address] [place] [address] PCP - GeneralInternal Medicine10/15/22 Fatou Kelly DO [address] [place] [address] PCP - Medical [place] [employer]11/10/1511documented as of this encounter
--- OUTSIDE RECORDS SUMMARY | 2025-01-06 13:47 | XMS_ITS | Encounter Summary ---
Author Organization [facility] Address [address] [place] [address] Care Team Providers Care Cashier Supervisor Name Role Phone Fatou Kelly DO Primary Care Provider Fatou Kelly DO Unavailable Encounter Details DateTypeDepartmentCare Team (Latest Contact Info)Gkmdglaxqml30/28/2025Travel Social History Tobacco UseTypesPacks/DayYears UsedDateSmoking Tobacco: NeverSmokeless Tobacco: NeverAlcohol UseStandard Drinks/WeekCommentsNever0 (1 standard drink = 0.6 oz pure alcohol)Caffeine intake: noneCommentsUnknownSex and Gender InformationValueDate RecordedSex Assigned at OubhgUhzkym52/31/2023 10:34 AM EDT Legal JfsGbpakg63/15/2023 6:46 PM EDTGender FzzyfwmwQdcevx69/31/2023 10:34 AM EDTSexual FyknbduyaciFxodbtps37/31/2023 10:34 AM EDTOccupationIndustryJob Start DateJob End DatePhysical Therapist AssistantNot on fileNot on fileNot on file documented as of this encounter Plan of Treatment DateTypeDepartmentCare Team (Latest Contact Info)Bqyudkyiexn84/03/2025 3:30 PM ESTOffice Visit [facility] [address] [place] [phone] Rinkes, May E, DO [address] [place] [address] 02/25/2025 3:30 PM ESTOffice Visit [facility] [address] [place] [phone] Fatou Kelly, DO [address] [place] [address] 08/25/2025 10:00 AM EDTOffice Visit [facility] [address] [place] [phone] May Thomas, DO [address] [place] [address] documented as of this encounter Visit Diagnoses Not on filedocumented in this encounter Care Teams Team MemberRelationshipSpecialtyStart DateEnd Date Fatou Kelly DO [address] [place] [address] PCP - GeneralInternal Medicine10/15/22 Fatou Kelly DO [address] [place] [address] PCP - Medical [place] [employer]11/10/1511documented as of this encounter
--- OUTSIDE RECORDS SUMMARY | 2025-01-06 13:47 | XMS_ITS | Clinical Summary ---
Author Organization [facility] Address [address] [place] [address] Care Team Providers Care Professor Of Forest Planning Name Role Phone [facility], Other Unavailable [phone] Fatou Kelly DO Primary Care Provider [phone] Allergies No known active allergies Medications MedicationSigDispense QuantityRefillsLast FilledStart DateEnd DateStatus norethindrone-ethinyl estradiol (Loestrin ,) 1-20 MG-MCG tablet Take 1 tablet by mouth daily.Active Multiple Vitamin (multivitamin) capsule Take 1 capsule by mouth daily.Active Probiotic Product (PROBIOTIC PO) Take 1 tablet by mouth daily.Active Efhtrdrocrn-Ndmstuarc-Gchqbc 200-62.5-25 MCG/ACT Aerosol Powder, breath activated Inhale 1 puff daily.Active Cholecalciferol (Vitamin D-3) 25 MCG (1000 UT) capsule Take 1 capsule by mouth daily.Active Ascorbic acid 500 MG tablet Take 1 tablet by mouth daily.Active Enoxaparin Sodium 40 MG/0.4ML injection Inject one syringe (0.4 mL) under the skin every 24 hours. 12 mL 08/25/2023 12:04 PM EDT08/25/2023ctive Acetaminophen 325 MG tablet Take 2 tablets by mouth every 6 hours as needed for Mild Pain or Moderate Pain for up to 7 days. Maximum dose 4000 mg from all sources in 24 hours. 56 tablet 08/25/2023 12:04 PM EDT08/25/2023ctive traMADol 50 MG tablet Indications:Renal donorTake 1 tablet by mouth every 6 hours as needed for Moderate Pain (First line pain) for up to 7 days. 28 tablet 08/25/2023 12:04 PM EDT08/25/2023ctive Active Problems ProblemNoted DateDiagnosed DateKidney donor08/23/2023 Social History Tobacco UseTypesPacks/DayYears UsedDateSmoking Tobacco: NeverSmokeless Tobacco: Never Tobacco Cessation:Counseling Given: Not Answered Alcohol UseStandard Drinks/WeekCommentsNot Currently0 (1 standard drink = 0.6 oz pure alcohol)CommentsNoSex and Gender InformationValueDate RecordedSex Assigned at BirthNot on fileLegal HxnQcfhac81/06/2024 8:05 AM ESTGender Identity Not on fileSexual OrientationNot on file Last Filed Vital Signs Vital SignReadingTime TakenCommentsBlood Hqjafhkg615/8409/18/2023 9:48 AM EDT Qfhut30348/10/2024 9:48 AM BNNNgwjhgritst27 ??C (98.6 ??F)09/18/2023 9:48 AM EDT Respiratory Jtib236008/25/2023 10:46 AM EDTOxygen Ppkizajqcb75%08/25/2023 10:46 AM EDTInhaled Oxygen Concentration--Kfionf72.7 kg (129 lb 4.8 oz)09/18/2023 9:48 AM SGJUfhzum225.5 cm (5' 2 )08/23/2023 7:42 AM EDTBody Mass Index23.65008/23/2023 7:42 AM EDT Plan of Treatment Health MaintenanceDue DateLast DoneCommentsHEPATITIS C VIRUS HLGRPDMTL17/21/1988 HIV SCREENING LEMXOSJWIA22/21/2003TDAP (ADULT)05/29/2006CERVICAL CANCER SCREENING LCGDWHOXJB09/21/1382DEDQLJC49COVID-19 VACCINE ( season)2024INFLUENZA VACCINE (#1)51HEP B VACCINE Sfcfusfko42/01/2000, 03/09/1999, 02/07/1999HPV SHWKNMDHxejjkqrh42/23/2010, 02/28/2009, 12/24/2008PNEUMOCOCCAL VACCINE SERIESAged OutNo longer eligible based on patient's age to complete this topic Insurance * Guarantor: [facility] TypeRelation to PatientDate of BirthPhone Billing AddressDonorOther [address] [place] [address] on file Advance Directives For more information, please contact: [phone] (7:30 AM - 6PM [facility], Saturday-Saturday) TypeDate RecordedPatient RepresentativeExplanationHealthCare Power of Steward/Stewardess Deck 08/23/2023 6:54 AMAdvance Directives/Living Will08/23/2023 6:54 AM * Full Code (Latest Code Status on File) Date ActivatedDate InactivatedComments08/23/2023 7:39 AM Care Teams Team MemberRelationshipSpecialtyStart DateEnd Date [facility], Other [address] [place] [address] PCP - Transplant CoordinatorTransplant04/16/23 Fatou Kelly DO [address] [place] [address] PCP - GeneralInternal Medicine06/10/23
--- OUTSIDE RECORDS SUMMARY | 2025-01-06 13:53 | XMS_ITS | CCD ---
Author Organization [facility] CliniSymt Care Team Providers Care Patient Relations Director Name Role Phone MICHELINE BELLE Unavailable Unavailable MASSEY, FLAQUITO Unavailable Unavailable Tonia Morin Unavailable Tonia Morin [...] NIRAV Attending Unavailable SAMSA, NIRAV Consulting Unavailable DO Tonia Morin Primary Care Provider DO Wes Chaves Attending Provider [facility], Other Unavailable [phone] Fatou Marr DO Primary Care Provider Fatou Marr DO Primary Care Provider Fatou Marr DO Unavailable Fatou Marr DO Primary Care Provider CHRISTOPHER-RONDA FATOU Primary Care Unavailable BEBETO BALDERRAMA Attending Unavailable BEBETO BALDERRAMA Admitting Unavailable FATOU MARR Primary Care Unavailable TAYLA MAZARIEGOS Referring Unavailable TAYLA MAZARIEGOS Attending Unavailable CHRISTOPHER-EMERY, FATOU Primary Care Unavailable TAYLA MAZARIEGOS Attending Unavailable SELF, SELF Referring Unavailable SELF, SELF Referring Unavailable FATOU MARR Primary Care Unavailable TAYLA MAZARIEGOS Attending Unavailable JAELYN FOWLER Attending Unavailable JAELYN FOWLER Attending Unavailable MAY THOMAS Attending Unavailable FATOU MARR Attending UnavailJAELYN Gonzales Attending Unavailable Tonia Morin DO Primary Care Provider [facility] Wes ADAME Attending [facility] Un[facility] Admitting Unavailable Tonia Morin Primary Care Unavailable Medications Current Medications MedicationDrug Class(es)DatesSig (Normalized)Sig (Original)acetaminophen 325 mg oral tablet (15 sources)Start: 08-25-2023 End: 01-65-9471bzky 2 tablets by mouth every six hours as neededAcetaminophen 325 MG tablet Take 2 tablets by mouth every 6 hours as needed for Mild Pain or Moderate Pain for up to 7 days. Maximum dose 4000 mg from all sources in 24 hours. 56 tablet 08/25/2023 ActiveStart: 08-23-2023 End: 37-37-5788141 mg, Oral, EVERY 6 HOURS, First dose on Sat08/23/23 at 1800, Until Discontinued, Maximum dose ofacetaminophen is 4000 mg from all sources in 24 hours., Post-op/Post-[id number] 200 actuat albuterol 0.09 mg/actuat metered dose inhaler (15 sources)beta2-Adrenergic AgonistStart: 35-58-9677Otxnx: 93-73-2539jnrj 2 puff(s) by inhalation twice daily as neededAlbuterol Sulfate HFA 108 (90 Base) MCG/ACT Inhalation Aerosol Solution 2 puffs twice daily as needed Quantity: 0 Refills: 0 Ordered: 15-Jun-2021 DO Start : 15-Jun-2021 Activetake 2 puff(s) by inhalation every four hours for wheezingalbuterol HFA 90 mcg/act inhaler Inhale 2 puffs every 4 (four) hours if needed for wheezing or shortness of breath. Rx'd by Dr. Hewitt Activeamoxicillin 875 mg / clavulanate 125 mg oral tablet (1 source)Penicillin-class AntibacterialStart: 66-60-5349dzty 1 tablet by mouth twice dailyascorbic acid 500 mg chewable tablet (16 sources)Vitamin C End: 91-32-2939bpga 1 tablet by mouth in the morningascorbic acid (Vitamin C) 500 MG tablet Take 500 mg by mouth in the morning. 06/03/2024 Discontinued End: 80-37-2390Ynkfraiw Acid (VITAMIN C PO) Take by mouth. 08/22/2023 Discontinued (Medication Reconciliation (suppress cancel msg))Ascorbic Acid (VITAMIN C PO) Take by mouth. ActiveBreo Ellipta 200-25 MCG/INH (1 source)take 1 puff(s) by inhalation once dailyBreo Ellipta 200-25 MCG/INH 1 puff Inhalation Once a day Activecholecalciferol 0.025 mg oral capsule (20 sources)Vitamin Dtake 1 capsule by mouth once dailycholecalciferol (Vitamin D-3) 25 MCG (1000 UT) capsule Take 1 capsule by mouth 1 (one) time each day at the same time. ActiveCholecalciferol (VITAMIN D-3 PO) Take by mouth. Active docusate sodium 100 mg oral capsule (2 sources)Start: 08-23-2023 End: 09-91-6595bvlw 1 capsule by mouth twice dailydocusate 100 MG capsule Take 1 capsule by mouth 2 times daily for 7 days. Hold for loose stool 14 capsule 08/25/2023 09/01/2023 Active0.4 ml enoxaparin sodium 100 mg/ml prefilled syringe (2 sources)Low Molecular Weight HeparinStart: 08-25-2023 End: 07-74-5227hcdzun 40 mg by subcutaneous injection every twenty-four hours Enoxaparin Sodium 40 MG/0.4ML injection Inject one syringe (0.4 mL) under the skin every 24 hours. 12 mL 08/25/2023 09/24/2023 ActiveNorethindrone Ac-Eth Estradiol (20 sources)EstrogenStart: 02-36-6683Iisna: 01-09-2024 End: 98-68-0015adilaptrpycpc-ethinyl estradiol (Loestrin 03/30, 21,) 1-20 MG-MCG tablet Indications: Encounter for surveillance of contraceptive pills Take 1 tablet by mouth Daily Take continuous. 84 tablet 4 01/09/2024 01/08/2025 Active Start: 08-24-2023 End: 43-43-1651eijq 1 tablet by mouth once daily1 tablet, Oral, DAILY, First dose on 08/24/23 at 1215, Until DiscontinuedStart: 03-01-2023 End: 85-88-2060yjlb 1 tablet by mouth in the morningLoestrin 1/, 21, 1-20 MG- MCG tablet Indications: Encounter for surveillance of contraceptive pills Take 1 tablet by mouth in the morning. Take continuous.. 84 tablet 4 03/01/2023 01/09/2024 Discontinued (Reorder)norethindrone-ethinyl estradiol (Loestrin /20, 21,) 1-20 MG-MCG tablet Take 1 tablet by mouth daily. Active{21 (ethinyl estradiol 0.035 MG / norgestimate 0.25 MG Oral Tablet) / 7 (inert ingredients 1 MG Oral Tablet) } Pack (2 sources)Progestin, Estrogentake 1 tablet by mouth every twenty-four hours Norgestimate-Eth Estradiol 0.25-35 MG-MCG 1 tablet Orally Once a day for 28 day(s) Ryengq28 actuat fluticasone furoate 0.2 mg/actuat / vilanterol 0.025 mg/actuat dry powder inhaler (1 source)Corticosteroid, beta2-Adrenergic Agonisttake 1 puff(s) by inhalation once dailyBreo Ellipta 200-25 MCG/INH 1 puff Inhalation Once a day Active Ojbdwhfmawm-Morqkoxbp-Yaxvud (TRELEGY ELLIPTA IN) (7 sources)Yornuaozbdk-Kggmgxerr-Gegjjy (TRELEGY ELLIPTA IN) Inhale. Active Abkdnndsojs-Dmgbbmxyf-Lbcprv (Trelegy Ellipta) 200-62.5-25 MCG/ACT aerosol powder (12 sources)take 1 puff(s) by inhalation in the morning Pjupyndftng-Nktakxtmc-Zpbyne (Trelegy Ellipta) 200-62.5-25 MCG/ACT aerosol powder Inhale 1 puff in the morning. Rx'd by Dr. Hewitt. Active Yurbeugfhvm-Iaygjchvd-Ezbbuz 200-62.5-25 MCG/ACT Aerosol Powder, breath activated (2 sources)take 1 puff(s) by inhalation once vdawpIomghxxnudm-Zccktgebq-Lfzgnk 200-62.5-25 MCG/ACT Aerosol Powder, breath activated Inhale 1 puff daily. Active Tzuklowvboq-Vmoanpmas-Btitcdsv (1 source)Start: 66-96-5589rrbdbqath 5 mg sublingual tablet (12 sources)Melatonin [address] 5 mg under the tongue as needed at bedtime (sleep issues). ActiveMultiple Vitamin (multivitamin) capsule (9 sources)take 1 capsule by mouth once dailyMultiple Vitamin (multivitamin) capsule Take 1 capsule by mouth daily. ActiveMultiple Vitamins-Minerals (MULTIVITAMIN GUMMIES ADULTS PO) (12 sources)take 1 tablet by mouth in the morningMultiple Vitamins-Minerals (MULTIVITAMIN GUMMIES ADULTS PO) Take 1 tablet by mouth in the morning. Active ondansetron 4 mg disintegrating oral tablet (2 sources)Serotonin-3 Receptor AntagonistStart: 08-25-2023 End: 51-91-0112bhnp 1 tablet by mouth every eight hours as neededOndansetron 4 MG Tab Dispersible tablet Take 1 tablet by mouth every 8 hours as needed for Nausea /Vomiting for up to 3 days. 9 tablet 08/25/2023 08/28/2023 ActiveStart: 08-23-2023 End: 33-93-4727qdoy 4 mg intravenously every four hours as needed4 mg, Intravenous, EVERY 4 HOURS NEEDED, Starting on Sat08/23/23 at 1557, Until 08/25/23 at 1837, Nausea / Vomiting, 1st Line, Post-op/Post-ProcProbiotic Product (PROBIOTIC PO) (9 sources)take 1 tablet by mouth once dailyProbiotic Product (PROBIOTIC PO) Take 1 tablet by mouth daily. ActiveProbiotic Product (PROBIOTIC PO) Take by mouth. ActivetraMADol hydrochloride 50 mg oral tablet (5 sources)Opioid AgonistStart: 10-27-2018 End: 17-28-9271vkyj 1 tablet by mouth every six hours as needed for paintraMADol 50 MG tablet Indications: Renal donor Take 1 tablet by mouth every 6 hours as needed for Moderate Pain (First line pain) for up to 7 days. 28 tablet 08/25/2023 Activeturmeric extract 500 mg oral capsule (12 sources)take 1 tablet by mouth once dailyTurmeric 500 MG capsule Take 1 tablet by mouth 1 (one) time each day. Active Completed/Discontinued Medications MedicationDrug Class(es)DatesSig (Normalized)Sig (Original)cephalexin 500 mg oral capsule (2 sources)Cephalosporin AntibacterialStart: 10-27-2018 End: 21-86-4216ltzf 1 capsule by mouth every six hoursCephalexin (Keflex) 500 mg capsule Discontinued 500 MG PO Q6H 28 October 27, 2018 12:00am February 12, 2024 1:21pmEstradiol-Norethindrone Acet 0.5-0.1 MG Oral Tablet (2 sources)Start: 81-05-7052Azvxbprpe-Norethindrone Acet 0.5-0.1 MG Oral Tablet TAKE 1 TABLET DAILY. Quantity: 0 Refills: 0 Ordered: 10-Jul-2021 Lory Irizarry MD Start : 10-Jul-2021 DlxxtzJdvjtnzedqv-Noclwnqxr-Akajyx 200-62.5-25 MCG/ACT AEPB 1 puff ++Patient supplied++ (1 source)Start: 08-24-2023 End: 92-45-0730rzvq 1 puff(s) by inhalation once daily1 puff, Inhalation, DAILY, First dose on Sat08/24/23 at 1115, Until Discontinuedgabapentin 100 mg oral capsule (1 source)Anti-epileptic AgentStart: 08-23-2023 End: 19-11-0852jctq 100 mg by mouth once daily at madgbrj189 mg, Oral, DAILY AT BEDTIME, First dose on Sat08/23/23 at 2100, Until Discontinued, Post-op/Post- ProcGadopiclenol SOLN 1-25 mL (1 source)Start: 06-24-2023 End: -25 mL, Intravenous, ONCE, 1 dose, [place] Sat06/24/23 [place] 567[address] ml heparin sodium, porcine 5000 unt/ml prefilled syringe (2 sources)Unfractionated Heparin, Anti-coagulantStart: 08-23-2023 End: 18-44-7442rabxtz 5000 [IU] by subcutaneous injection every eight hours5,000 Units, Subcutaneous, EVERY 8 HOURS (0800/1600/2200), First dose on Sat08/23/23 at 1600, UntilDiscontinued, Post-op/Post-ProcStart: 08-23-2023 End: ,000 Units, Subcutaneous, MINIBUS DRIVER TO PROCEDURE, 1 dose, Starting on Sat08/23/23 at 0739, Until Sat08/23/23 at 1142, Other, Pre-op/Pre-Proc1 ml HYDROmorphone hydrochloride 1 mg/ml cartridge (1 source)Opioid AgonistStart: 08-23-2023 End: .5 mg, Intravenous, EVERY 10 MINUTES NEEDED, 8 doses, Starting on Sat08/23/23 at 1453, Until Sat08/23/23 at 1550, Moderate Pain, Severe Pain, May give a total of 4mg in PACU., Recoveryibuprofen 600 mg oral tablet (2 sources)Nonsteroidal Anti-inflammatory DrugStart: 10-22-2018 End: 96-30-1013rwbx 1 tablet by mouth every six hours as needed for pain Ibuprofen 600 mg tablet Discontinued 600 MG PO Q6H as needed for pain October 22, 2018 12:00am February 12, 2024 1:21pmiohexol (OMNIPAQUE) 350 MG/ML injection 1-171 mL (1 source)Start: 06-10-2023 End: -171 mL, Intravenous, ONCE, 1 dose, On Sat06/10/23 at 1115, Extravasation Risk, CT Procedure1 ml ketorolac tromethamine 15 mg/ml cartridge (1 source)Nonsteroidal Anti-inflammatory Drug, Cyclooxygenase InhibitorStart: 08-23-2023 End: 03-28-340727 mg, Intravenous, EVERY 6 HOURS, 8 doses, First dose on Sat08/23/23 at 1800, Last dose on Sat08/25/23 at 1200, Post-op/Post-Proc meclofenamate 100 mg oral capsule (2 sources)Start: 10-27-2018 End: 48-03-1729ayqr 1 capsule by mouth three times dailyMeclofenamate 100 mg capsule Discontinued 100 MG PO Three times daily 9 October 27, 2018 12:00am February 12, 2024 1:21pmmetroNIDAZOLE 500 mg oral tablet (2 sources)Nitroimidazole AntimicrobialStart: 10-27-2018 End: 97-68-6859wknk 1 tablet by mouth twice dailyMetronidazole (Flagyl) 500 mg tablet Discontinued 500 MG PO Twice daily 14 October 27, 2018 12:00am February 12, 2024 1:21pmpromethazine hydrochloride 25 mg oral tablet (1 source)PhenothiazineStart: 08-25-2023 End: 54-32-9743jfln 1 dose by mouth once25 mg, Oral, ONCE, 1 dose, On Sat08/25/23 at 1300sennosides, intermediate 8.6 mg oral tablet (1 source)Start: 08-23-2023 End: 93-01-3346tizq 8.6 mg by mouth twice daily8.6 mg, Oral, 2 TIMES DAILY, First dose on Sat08/23/23 at 1700, Until Discontinued, Post-op/Post-Proc simethicone 80 mg chewable tablet (1 source)Start: 08-23-2023 End: 32-86-2537lbci 1 tablet by mouth every four hours as tfuitj62 mg, Oral, EVERY 4 HOURS NEEDED, Starting on Sat08/23/23 at 1557, Until 08/25/23 at 1837, Gas, Post-op/Post-Rkot0318 ml sodium chloride 9 mg/ml injection (4 sources)Start: 08-23-2023 End: 29-91-6479Ejldxbdrdvc, at 100 mL/hr, CONTINUOUS, Starting on Sat08/23/23 at 1600, Until Sat08/24/23 at 0820, Post-op/Post-ProcStart: 06-24-2023 End: -250 mL, Intravenous, ONCE NEEDED, 1 dose, Starting on Sat06/24/23 at 1713, Until Sat06/24/23 at 1717, Flush, MR ProcedureStart: 06-10-2023 End: -100 mL, Intravenous, ONCE NEEDED, 1 dose, Starting on Sat06/10/23 at 1102, Until Sat06/10/23 at 1103, Flush, CT Procedure Problems Active Problems Problem ClassificationProblemDateDocumented DateEpisodic/ChronicAcquired foot deformities (2 sources)Bunion; Translations: [Bunion of right foot]EpisodicAcute and chronic tonsillitis (2 sources)Hypertrophy of tonsils; Translations: [Hypertrophy of tonsils]Chronic Asthma (15 sources)Asthma; Translations: [Asthma, unspecified type, unspecified]Onset: 952305-35-9440EpgfyibTlcizkocrcpi of device; implant or graft (6 sources)Mechanical complication associated with orthopedic device; Translations: [Other mechanical complication of other internal orthopedic devices, implants and grafts, initial encounter]23-18-2882UpuynkbfAqccvrpcxjrxm and procreative management (2 sources)Oral contraception; Translations: [Encounter for surveillance of contraceptive pills]56-04-8776EjfsnuffQykzwpevfhoyz (13 sources)Endometriosis, unspecified; Translations: [Endometriosis (clinical)] Onset: 792523-37-8759AgipsczHpej disorders (12 sources)Major depression, single episode; Translations: [Major depressive disorder, single episode, unspecified]Onset: 777997-34-7084Sqifrdb Nonspecific chest pain (1 source)Chest pain, unspecified; Translations: [Chest pain, unspecified]Onset: 38-07-6957CucxmxebWjsasdjdqahxmj (5 sources)Unspecified osteoarthritis, unspecified site; Translations: [Primary osteoarthritis, unspecified site]Onset: 15-99-3161IoqsggmNraaj aftercare (2 sources)Surgical follow-up; Translations: [Encounter for follow-up examination after completed treatment for conditions other than malignant neoplasm]12-77-0115DrevzztwDucfp connective tissue disease (2 sources)Pain in limb; Translations: [Pain in left foot]EpisodicOther connective tissue disease (2 sources)Foot pain; Translations: [Pain in right foot]EpisodicOther connective tissue disease (6 sources)Pain in left foot; Translations: [Pain in left foot]06-03-2024 EpisodicOther female genital disorders (2 sources)Abnormal vaginal bleeding; Translations: [Abnormal uterine and vaginal bleeding, unspecified]41-23-6501WdgrmygXxtbibx on above:Problem List clean-up per request of Phys. EHR CmteOther gastrointestinal disorders (12 sources)Irritable bowel syndrome characterized by constipation; Translations: [Irritable bowel syndrome with constipation]Onset: 03-06-2023 22-96-9591CvvixjwWlvtz lower respiratory disease (5 sources)Other nonspecific abnormal finding of lung field; Translations: [OTH NONSPECIFIC ABN FIND LNG FIELD]Onset: 95-23-5774KjwzjwswEwbpb nervous system disorders (2 sources)Chronic pain; Translations: [Other chronic pain]ChronicOther nervous system disorders (12 sources)Chronic pain syndrome; Translations: [Chronic pain syndrome]Onset: 768347-42-6472WdxzdihUglth screening for suspected conditions (not mental disorders or infectious disease) (2 sources)Cancer cervix screening status; Translations: [Encounter for screening for malignant neoplasm of cervix]12-76-0885WjekbdwbEirfw upper respiratory infections (1 source)Chronic sinusitis, unspecified; Translations: [CHRONIC SINUSITIS UNSPECIFIED]Onset: 43-42-1038KbikfsoArfpo upper respiratory infections (1 source)Acute bacterial sinusitis; Translations: [Acute sinusitis, unspecified]27-20-5919PclvkshpIreuubbu codes; unclassified (1 source)Periodic limb movement disorder; Translations: [PERIODIC LIMB MOVEMENT DISORDER]Onset: 19-99-4278PueyvljAyduquan codes; unclassified (1 source)Hypersomnia, unspecified; Translations: [HYPERSOMNIA UNSPECIFIED] Onset: 53-91-8263PxulvwwGblolklx codes; unclassified (4 sources)Obstructive sleep apnea (adult) (pediatric); Translations: [OBSTRUCTIVE SLEEP APNEA]Onset: 17-07-7971YwtbflkYghuituy codes; unclassified (1 source)Idiopathic hypersomnia with long sleep time; Translations: [IDIO HYPERSOMNIA W/LONG SLEEP TIME]Onset: 04-04-3691SjyjskmYldhvbcd codes; unclassified (6 sources)Periodic limb movement disorder; Translations: [Periodic limb movement disorder]Onset: 933949-99-9435DyjqzceEzbenbwl codes; unclassified (12 sources)Hypersomnia; Translations: [Hypersomnia, unspecified]Onset: 521620-29-8367CwsylcqMqmllmbs codes; unclassified (6 sources)Periodic leg movements of sleep ; Translations: [Periodic limb movement disorder]Onset: 044395-77-6492WdifakaZtnngwgq codes; unclassified (2 sources)Influenza vaccination declined; Translations: [Immunization not carried out because of patient refusal]23-53-0936FpmruxvaCjfghtp (1 source)SyncopeOnset: 05-74-3999Rtqmpzoj lupus erythematosus and connective tissue disorders (3 sources)Granulomatosis with polyangiitis; Translations: [Steffen's granulomatosis without renal involvement]Onset: 02-28-2021 Resolved: 08-36-5648IrnaflmLrzuxgwbxxfk (2 sources)Chest pain, unspecified / R07.9(ICD-9)Onset: 51-56-6780Jazibei tract infections (2 sources)Acute cystitis; Translations: [Acute cystitis without hematuria] 71-01-6606OuxofqriFuelrsg on above:Problem List clean-up per request of Phys. EHR Cmte Past or Other Problems Problem ClassificationProblemDateDocumented DateEpisodic/ChronicImmunizations and screening for infectious disease (17 sources)Anti-nuclear factor positive; Translations: [Other and unspecified nonspecific immunological findings]Onset: 713451-63-7391DwqowmypAfkna lower respiratory disease (12 sources)Multiple nodules of lung; Translations: [Other nonspecific abnormal finding of lung field]Onset: 457619-07-4631OqgwkskbAqjcvjai codes; unclassified (20 sources)Kidney donor; Translations: [Kidney donors]Onset: 08-10-2023 81-59-7414Nkykvmlt Results Test NameValueInterpretationReference RangeFacilityCholesterol [Mass/volume] in Serum or PlasmaOrdered By: Wes Chaves on 33-78-3820Zaaaaajfifb [Mass/Vol]193 mg/xEAvjzve900-180MsjigwduxProtestant Deaconess HospitalComment on above:Chol less than 200 mg/dl low riskChol 201-239 mg/dl borderline riskChol 240 mg/dl and greater high riskResult Comment: Chol less than 200 mg/dl low risk Chol 201-239 mg/dl borderline risk Chol 240 mg/dl and greater high riskPerformed By: #### LIPID, GLU #### [address] [address] USACholesterol in HDL [Mass/volume] in Serum or PlasmaOrdered By: Wes Chaves on 49-62-9369Soahmmzdjpv in HDL [Mass/Vol]58 mg/bTByswrz88-14 [facility]acon[facility] HospitalComment on above:HDL CHOL ATP-III CLASSIFICATION Cardiovascular RiskHDL > or equal to 60 mg/dL LOWHDL < 40 mg/dL HIGHResult Comment: HDL CHOL ATP-III CLASSIFICATION Cardiovascular Risk HDL > or equal to 60 mg/dL LOW HDL < 40 mg/dL HIGHPerformed By: #### LIPID, GLU #### [facility] [address] [place] [address] USACholesterol in LDL Calc [Mass/Vol]Ordered By: Wes Chaves on 70-88-5028Xglxpyoauvs in LDL [Mass/Vol]114 mg/dLHigh0-100Pro[facility]acon[facility] HospitalComment on above:LDL ATP III CLASSIFICATIONLDL less than 100 mg/dL OptimalLDL 100-129 mg/dL Near or above itwcpkoCWD301-368 mg/dL Borderline highLDL 160-189 mg/dL HighLDL greater than 189 mg/dL Very highCholesterol in VLDL Calc [Mass/Vol]Ordered By: Wes Chaves on 22-69-1132Phqxyjdmtub in VLDL [Mass/Vol]20 mg/dLProtestant Deaconess HospitalGlucose [Mass/volume] in Serum or PlasmaOrdered By: Wes Chaves on 49-83-0489Gudvtqn [Mass/Vol]89 mg/dL Mqzarj36-707SddmkfveuProtestant Deaconess HospitalComment on above:ADA recommended reference rangeRandom Glucose Reference Range is dependent on time and content of last meal. Glucose of more than 200 mg/dL in a nonstressed, ambulatory subject supports the diagnosisof Diabetes Mellitus.Result Comment: Random Glucose Reference Range is dependent on time and content of last meal. Glucose of more than 200 mg/dL in a nonstressed, ambulatory subject supports the diagnosis of Diabetes Mellitus. ADA recommended reference rangePerformed By: #### LIPID, GLU #### [facility] [address] [place] [address] USALipid Panelon 22-44-3070IHX Cholesterol,Ejjmtbczfv429 mg/dLHigh0-100The Replaced By [facility] Physician GroupComment on above:Result Comment: LDL ATP III CLASSIFICATION LDL less than 100 mg/dL Optimal LDL 100-129 mg/dL Near or above optimal LDL 130-159 mg/dL Borderline high LDL 160-189 mg/dL High LDL greater than 189 mg/dL Very highPerformed By: #### LIPID, GLU #### [facility] [address] [place] [address] USATriglyceride w/Dhsajk420 mg/dLNormal0-149[facility] Physician GroupComment on above:Result Comment: TRIG ATP III CLASSIFICATION TRIG less than 150 mg/dL Normal TRIG 150-199 mg/dL Borderline high TRIG 200-500 mg/dL High TRIG greater than 500 mg/dL Very high Standard traceable to the Center for Disease Conrtrol and Prevention (CDC) test method.Performed By: #### LIPID, GLU #### [place] [address] USAVLDL YZRCHWONWID66 mg/dLNormalThSt. Luke's McCall Physician [facility] BiloxiComment on above:Performed By: #### LIPID, GLU #### [place] [id number] USASerum or plasma total cholesterol/high density lipoprotein (HDL) cholesterol mass ratOrdered By: Wes Chaves on 11-20-2024 Cholesterol.total/Cholesterol in HDL [Mass ratio]3.3 {ratio}Normal<5.0Pro[facility] Deaconess HospitalComment on above:Result Comment: PERFORMED BY: [place] [address] PATHOLOGIST AURICULAR THERAPIST KADY NOGUERA M.D.Performed By: #### LIPID, GLU #### [place] [id number] USATriglyceride [Mass/volume] in Serum or PlasmaOrdered By: Wes Chaves on 43-61-1668Errklbfuywpu [Mass/Vol]104 mg/dL0-149Pro[facility]acon[facility] HospitalComment on above:TRIG ATP III CLASSIFICATIONTRIG less than 150 mg/dL NormalTRIG 150-199 mg/dL Borderline highTRIG 200-500 mg/dL High TRIG greater than 500 mg/dL Very highStandard traceable to the Center for Disease Co nrtrol and Prevention (CDC) test method.XR Foot - left 2 Viewson 06-03-2024 Imaging Result: Two views of the left foot: AP, MO, LAT were performed today in the office. Radiographs were read by myself and demonstrate: No evidence of acute fracture or dislocation. Normal joint spaces noted with no evidence of narrowing or osteophyte formation. There are no structural deformities noted. K-wire intact to the left 1st metatarsal.[facility] Radiology Study observation (narrative)[facility] InstituteCBC AND ELECTRONIC DIFFon 20-66-1694Roodrnpbr (Bld) [#/Vol]0.08 10*3/uL0.00 - 0.15 K/uLOSOhiohealth Southeastern Medical CenterBasophils/100 WBC (Bld)1.2 %[facility] HospitalDifferential cell count method Nom (Bld)Electronic DifferentialOSU Memorial Health System Eosinophils (Bld) [#/Vol]0.08 10*3/uL0.00 - 0.42 K/uLCleveland Clinic [facility] Eosinophils/100 WBC (Bld)1.2 %[facility] HospitalErythrocyte distribution width (RBC) [Ratio]12.1 %10.8 - 14.9 %[facility] HospitalHematocrit (Bld) [Volume fraction]43.1 %34.9 - 44.3 %[facility] HospitalHemoglobin (Bld) [Mass/Vol]13.6 g/dL11.4 - 15.2 g/dLCleveland Clinic [facility] HospitalImmature granulocytes (Bld) [#/Vol]K/uLNINF - 0.08 K/uLOSU Memorial Health SystemImmature granulocytes/100 WBC (Bld)0.4 %[facility] HospitalInterpretation and review of laboratory resultsAbnormalOSU Memorial Health SystemLymphocytes (Bld) [#/Vol]2.17 10*3/uL1.16 - 3.51 K/uLOSU Memorial Health SystemLymphocytes/100 WBC (Bld)32.4 %[facility] HospitalMCH (RBC) [Entitic mass]28.4 pg25.9 - 33.9 pgOSU Wexner Medical Center CenterMCHC (RBC) [Mass/Vol]31.6 g/dL31.4 - 35.9 g/dLCleveland Clinic Ak[facility] General Lodi HospitalMCV (RBC) [Entitic vol]90.0 fL79.6 - 97.7 [facility] HospitalMonocytes (Bld) [#/Vol]0.63 10*3/uL0.22 - 0.87 K/[facility] CenterMonocytes/100 WBC (Bld)9.4 %[facility] HospitalNeutrophils (Bld) [#/Vol]3.70 10*3/uL1.64 - 7.28 K/[facility] Medical CenterNucleated RBC/100 WBC (Bld) [Ratio]0.0 %NINVan Wert County HospitalPlatelet mean volume (Bld) [Entitic vol]9.2 fL8.5 - 12.2 [facility] HospitalPlatelets (Bld) [#/Vol]482 10*3/rVWsrd252 - 393 K/[facility] Medical CenterRBC (Bld) [#/Vol] 4.79 10*6/uLSouthwest General Health Centeregmented neutrophils/100 WBC (Bld)55.4 % [facility] HospitalWBC (Bld) [#/Vol]6.69 10*3/uL3.99 - 11.19 K/[facility] Medical CenterOSOhiohealth Southeastern Medical CenterBasophils (Bld) [#/Vol]0.08 10*3/uLNormal0.00-0.15[facility] TownshipComment on above:Performed By: #### PTPTT #### [facility] (DEFAULT) [address] [address]Vzxgsbmlz/100 WBC (Bld)1.2 %NormalKettering Health Washington TownshipComment on above:Performed By: #### PTPTT #### [facility] (DEFAULT) [address] [address]PZQD STATUSElectronic DifferentialNormalOTrumbull Memorial HospitalComment on above:Performed By: #### PTPTT #### [facility] (DEFAULT) [address] [place] [address] 13904Czcmetsgmfh (Bld) [#/Vol]0.08 10*3/uLNormal0.00-0.42[facility] TownshipComment on above:Performed By: #### PTPTT #### [facility] (DEFAULT) [address] [place] [address] 60363Qrpmrvclcpb/100 WBC (Bld)1.2 %[facility] County HospitalComment on above:Performed By: #### PTPTT #### [facility] (DEFAULT) [address] [place] [address] 76453Ggoclvwspn (Bld) [Volume fraction]43.1 %Xdukmh64.9-44.3[facility] TownshipComment on above:Performed By: #### PTPTT #### [facility] (DEFAULT) [address] [place] [address] 07130Ntcatwsyfh (Bld) [Mass/Vol]13.6 g/nBHeoxrm36.4-15.2[facility] TownshipComment on above:Performed By: #### PTPTT #### [facility] (DEFAULT) [address] [place] [address] 38716Ulcpopio Grans %0.4 %[facility] County HospitalComment on above:Performed By: #### PTPTT #### [facility] (DEFAULT) [address] [place] [address] 45312Ehxmqkkv Grans Absolute<Normal<=0.08[facility] TownshipComment on above:Performed By: #### PTPTT #### [facility] (DEFAULT) [address] [place] [address] 96307Udmvbrsgekf (Bld) [#/Vol]2.17 10*3/uLNormal1.16-3.51[facility] TownshipComment on above:Performed By: #### PTPTT #### [facility] (DEFAULT) [address] [place] [address] 48507Aytnhmbmttj/100 WBC (Bld)32.4 %NormalKettering Health Washington TownshipComment on above:Performed By: #### PTPTT #### [facility] (DEFAULT) [address] [place] [address] 22467TVW (RBC) [Entitic vol]90.0 uLCtrhuq01.6-97.7[facility] TownshipComment on above:Performed By: #### PTPTT #### [facility] (DEFAULT) [address] [place] [address] 51226Ydxz Cell Hgb28.4 jrEotfqx28.9-33.9[facility] TownshipComment on above:Performed By: #### PTPTT #### [facility] (DEFAULT) [address] [place] [address] 74063Helg Cell Hgb Conc31.6 g/lIYhbsrg21.4-35.9[facility] TownshipComment on above:Performed By: #### PTPTT #### [facility] (DEFAULT) [address] [place] [address] 07681Ptmbtqdja (Bld) [#/Vol]0.63 10*3/uLNormal0.22-0.87[facility] TownshipComment on above:Performed By: #### PTPTT #### [facility] (DEFAULT) [address] [place] [address] 95530Pbibjjxsn/100 WBC (Bld)9.4 %NormalKettering Health Washington TownshipComment on above:Performed By: #### PTPTT #### [facility] (DEFAULT) [address] [place] [address] 30654Klodveukr RBC0.0 /100 WBCNormal<=0.2[facility] TownshipComment on above:Performed By: #### PTPTT #### [facility] (DEFAULT) [address] [place] [address] 67647Wqerwwli mean volume (Bld) [Entitic vol]9.2 fLNormal8.5-12.2 [facility] TownshipComment on above:Performed By: #### PTPTT #### [facility] (DEFAULT) [address] [place] [address] 49533Mfbpeevge (Bld) [#/Vol]482 10*3/sGZkpi151-337VnntKettering Health Washington TownshipComment on above:Performed By: #### PTPTT #### [facility] (DEFAULT) [address] [place] [address] 55724ZUF (Bld) [#/Vol]4.79 10*6/uLNormal3.91-5.04[facility] TownshipComment on above:Performed By: #### PTPTT #### [facility] (DEFAULT) [address] [place] [address] 50594ZIU Vjbpcfpzmpbn12.1 %Cfcqmm40.8-14.9[facility] TownshipComment on above:Performed By: #### PTPTT #### [facility] (DEFAULT) [address] [place] [address] 86585Mcxh + Bands Auto55.4 %NormalKettering Health Washington TownshipComment on above:Performed By: #### PTPTT #### [facility] (DEFAULT) [address] [place] [address] 32012Mngm + Bands,Absolute Auto3.70 K/uLNormal1.64-7.28[facility] TownshipComment on above:Performed By: #### PTPTT #### [facility] (DEFAULT) [address] [place] [address] 81744FCV (Bld) [#/Vol]6.69 10*3/uLNormal3.99-11.19[facility] TownshipComment on above:Performed By: #### PTPTT #### [facility] (DEFAULT) [address] [place] [address] 75640YECB 7 (LYTES,BUN,CREA,GLUC)on 76-00-7402Yuqft gap [Moles/Vol] 12 mmol/L7 - 17 mmol/[facility] HospitalChloride [Moles/Vol]102 mmol/L98 - 108 mmol/[facility] HospitalCO2 [Moles/Vol]29 mmol/L21 - 31 mmol/[facility] HospitalCreatinine [Mass/Vol]1.19 mg/dL0.50 - 1.20 mg/dLOSOhiohealth Southeastern Medical CentereGFR, CKD-EPI, Xcqjlz04- [facility] HospitalComment on above:Reported eGFR is based on the CKD-EPI 2020 equation using creatinine, age, and sex.Glucose [Mass/Vol]88 mg/dL70 - 99 mg/dLCleveland Clinic [facility] Osmolality Calc [Osmolality]291OSOhiohealth Southeastern Medical CenterPotassium [Moles/Vol]3.8 mmol/L3.5 - 5.0 mmol/[facility] Francis Hospitalodium [Moles/Vol]139 mmol/L135 - 145 mmol/[facility] HospitalUrea nitrogen [Mass/Vol]17 mg/dL7 - 25 mg/dLCleveland Clinic [facility] HospitalUrea nitrogen/Creatinine [Mass ratio]14 mg/mgOak Valley HospitalAnion gap [Moles/Vol]12 mmol/L Normal7-17[facility] TownshipComment on above:Performed By: #### CHM7 #### [facility] (DEFAULT) [address] [place] [address] 80524Btxzqcrw [Moles/Vol]102 mmol/SOhhbng55-422XuxqKettering Health Washington TownshipComment on above:Performed By: #### CHM7 #### [facility] (DEFAULT) [address] [place], [place] [address]TV3 [Moles/Vol]29 mmol/PTfyozs67-46GwdeKettering Health Washington TownshipComment on above:Performed By: #### CHM7 #### [facility] (DEFAULT) [address] [place], [place] [address]Jpgxsiiryo [Mass/Vol]1.19 mg/dLNormal0.50-1.20[facility] TownshipComment on above:Performed By: #### CHM7 #### [facility] (DEFAULT) [address] [place] [address] 18548BQB/1.73 sq M.predicted among non-blacks MDRD (S/P/Bld) [Vol rate/Area]61 mL/min/{1.73_m2}Normal>=60[facility] TownshipComment on above:Result Comment: Reported eGFR is based on the CKD-EPI 2020 equation using creatinine, age, and sex.Performed By: #### CHM7 #### [facility] (DEFAULT) [address] [address]Apwpzkc [Mass/Vol]88 mg/iVRgrgui79-70AheyKettering Health Washington TownshipComment on above:Performed By: #### CHM7 #### [facility] (DEFAULT) [address] [place] [address] 28263Ltixxypulu [Osmolality]291 mosm/oqQquhjw108-799XlmmKettering Health Washington TownshipComment on above:Performed By: #### CHM7 #### [facility] (DEFAULT) [address] [place] [address] 02045Tvxdcfueo [Moles/Vol]3.8 mmol/LNormal3.5-5.0[facility] TownshipComment on above:Performed By: #### CHM7 #### [facility] (DEFAULT) [address] [address]Xqyfcb [Moles/Vol]139 mmol/QAskqlb712-954LhzlKettering Health Washington TownshipComment on above:Performed By: #### CHM7 #### [facility] (DEFAULT) [address] [address]Sadb nitrogen [Mass/Vol]17 mg/dLNormal7-25[facility] TownshipComment on above:Performed By: #### CHM7 #### [facility] (DEFAULT) [address] [address]Zvkr nitrogen/Creatinine [Mass ratio]14 mg/mgNoOhioHealth Grant Medical CenterComment on above:Performed By: #### CHM7 #### [facility] (DEFAULT) [address] [address]MAQIJNPABH REFLEX TO CULTURE PERFORMABLEon 09-18-2023 Appearance (U)ClearClearOCommunity Memorial HospitalBacteria LM Ql (Urine sed) ABSENTABSENTOSU Memorial Health SystemColor (U)YellowYellowOSOhiohealth Southeastern Medical CenterEpithelial cells.squamous LM Ql (Urine sed)0-2/hpf0-2/hpf, 3-5/hpf = 1+[facility] HospitalGlucose Test strip (U) [Mass/Vol]NegativeNegativeOSOhiohealth Southeastern Medical CenterInterpretation and review of laboratory resultsAbnoMadison HealthKetones (U) [Mass/Vol]NegativeNegativeOSOhiohealth Southeastern Medical Center Leukocyte esterase Test strip Ql (U)TraceAbnormalNegativeOSU Memorial Health SystemNitrite Ql (U)NegativeNegativeOSOhiohealth Southeastern Medical CenterpH (U)7.0 [pH]5.0 - 7.0OS[facility] Health SystemProtein (U) [Mass/Vol]NegativeNegativeOSU Memorial Health SystemRBC (U) [#/Vol]NegativeNegativeOSU Memorial Health SystemRBC LM.HPF (Urine sed) [#/Area]0-2OSU [facility] - Andersonpecific gravity (U) [Rel density]1.0081.001 - 1.035OSU Memorial Health SystemUrobilinogen (U) [Mass/Vol] 0.2 E.U./dL0.2 E.U/dL, 1.0 E.U/dLOSU Memorial Health SystemWBC LM.HPF (Urine sed) [#/Area]0 - 5OS[facility] Health SystemOSU Memorial Health SystemAppearance (U) ClearNormalCCentervilleComment on above: Performed By: #### [id number] #### [facility] (DEFAULT) [address] [place], [place] [address]ZrtscttgQGCJNNPljmziSEPZHBDintKettering Health Washington TownshipComment on above:Performed By: #### [id number] #### [facility] (DEFAULT) [address] [place], [place] [address]Doftf UrineNegativeNormalNegativeKettering Health Washington TownshipComment on above:Performed By: #### [id number] #### [facility] (DEFAULT) [address] [place], [place] [address]Scawo (U)YellowNormalYellowKettering Health Washington TownshipComment on above:Performed By: #### [id number] #### [facility] (DEFAULT) [address] [place] [address] 32096Wwakrsv Ql (U)NegativeNormalNegWexner Medical CenterComment on above:Performed By: #### [id number] #### [facility] (DEFAULT) [address] [place] [address] 03873Vjxpmqm Ql (U)NegativeNormalNegWexner Medical CenterComment on above:Performed By: #### [id number] #### [facility] (DEFAULT) [address] [place] [address] 56466Bunhuowwm esterase Test strip Ql (U)TraceAbnormalNegWexner Medical CenterComment on above:Performed By: #### [id number] #### [facility] (DEFAULT) [address] [place] [address] 63733Vozymtvq UrineNegativeNormalNegWexner Medical CenterComment on above:Performed By: #### [id number] #### [facility] (DEFAULT) [address] [place] [address] 19571sR (U)7.0 [pH]Normal5.0-7.0[facility] TownshipComment on above:Performed By: #### [id number] #### [facility] (DEFAULT) [address] [place] [address] 26073Odrmcus UrineNegativeNormalNegativeKettering Health Washington TownshipComment on above:Performed By: #### [id number] #### [facility] (DEFAULT) [address] [place] [address] 23043KYV Ykvcm9-1Dhnmbl8-5BtylKettering Health Washington TownshipComment on above:Performed By: #### [id number] #### [facility] (DEFAULT) [address] [place] [address] 60697Omozpsgb Ashkum Urine1.224Rreiha8.001-1.035[facility] TownshipComment on above:Performed By: #### [id number] #### [facility] (DEFAULT) [address] [place] [address] 988[address]Swaphkys/Epithelial Cells0-2/hpfNormal0-2/hpf, 3-5/hpf = 1+ [facility] TownshipComment on above:Performed By: #### [id number] #### [facility] (DEFAULT) [address] [place] [address] 97023Norcgbvfcywq Urine0.2 E.U./dLNormal0.2 E.U/dL, 1.0 E.U/dLKettering Health Washington TownshipComment on above:Performed By: #### [id number] #### [facility] (DEFAULT) [address] [place] [address] 85552RXE Urine0 - 6Xohygu1 - 5[facility] TownshipComment on above:Performed By: #### [id number] #### [facility] (DEFAULT) [address] [place] [address] 37991ITY CREAon [id number] [Mass/Vol]1.02 mg/dL0.50 - 1.20 mg/dLOSOhiohealth Southeastern Medical CentereGFR, CKD-EPI, Fwonyx54- PINFOSU Memorial Health SystemComment on above:Reported eGFR is based on the CKD-EPI 2021 equation using creatinine, age, and sex.Urea nitrogen [Mass/Vol]14 mg/dL7 - 25 mg/dLU Memorial Health SystemUrea nitrogen/Creatinine [Mass ratio]14 mg/mgU Memorial Health SystemOSU Memorial Health SystemCreatinine [Mass/Vol]1.02 mg/dL Normal0.50-1.20[facility] TownshipComment on above: Performed By: #### CHM7 #### [facility] (DEFAULT) [address] [address]TCY/1.73 sq M.predicted among non-blacks MDRD (S/P/Bld) [Vol rate/Area]73 mL/min/{1.73_m2}Normal>=60[facility] TownshipComment on above:Result Comment: Reported eGFR is based on the CKD-EPI 2020 equation using creatinine, age, and sex.Performed By: #### CHM7 #### [facility] (DEFAULT) [address] [address]Rqot nitrogen [Mass/Vol]14 mg/dLNormal7-25[facility] TownshipComment on above:Performed By: #### CHM7 #### [facility] (DEFAULT) [address] [address]Kodw nitrogen/Creatinine [Mass ratio]14 mg/mgNoalOTrumbull Memorial HospitalComment on above:Performed By: #### CHM7 #### [facility] (DEFAULT) [address] [address]VBICAJJ AURIS SCREEN BY PCROrdered By: Tuan Liu on 25-57-5104Ixaltcg auris Screen by PCRNot detectedNot DetectedC[facility] Clinic [facility] HospitalInterpretation and review of laboratory resultsNormRegency Hospital CompanyThis test was performed using a real-time PCR assay. This test was developed, and its performance characteristics determined by [facility]. It has not been cleared or approved by the FDA. The laboratory is regulated under C BISMARK as qualified to perform high-complexity testing. This test is used for clinical purposes. It should not be regarded as investigational or for research. This test was performed using a real-time PCR assay. This test was developed, and its performance characteristics determined by [facility]. It has not been cleared or approved by the FDA. The laboratory is regulated under CLIA as qualified to perform high-complexity testing. This test is used for clinical purposes. It should not be regarded as investigational or for research. [facility] HospitalBUN CREAon 08-24-2023 Creatinine [Mass/Vol]1.16 mg/dL0.50 - 1.20 mg/dLCleveland Clinic [facility] HospitaleGFR, CKD-EPI, Ygxgmd02- PINFOCommunity Memorial HospitalComment on above:Reported eGFR is based on the CKD-EPI 2021 equation using creatinine, age, and sex.Urea nitrogen [Mass/Vol]12 mg/dL7 - 25 mg/dLCleveland Clinic [facility] HospitalUrea nitrogen/Creatinine [Mass ratio]10 mg/mgOak Valley HospitalCreatinine [Mass/Vol]1.16 mg/dLNormal0.50-1.20[facility] TownshipComment on above:Performed By: #### BCR #### [facility] (DEFAULT) [address] [place] [address] 70715WHT/1.73 sq M.predicted among non-blacks MDRD (S/P/Bld) [Vol rate/Area]63 mL/min/{1.73_m2}Normal>=60[facility] TownshipComment on above:Result Comment: Reported eGFR is based on the CKD-EPI 2021 equation using creatinine, age, and sex.Performed By: #### BCR #### [facility] (DEFAULT) [address] [place] [address] 83049Bjfy nitrogen [Mass/Vol]12 mg/dLNormal7-25[facility] TownshipComment on above:Performed By: #### BCR #### [facility] (DEFAULT) [address] [address]Dmjw nitrogen/Creatinine [Mass ratio]10 mg/mgNormHighland District HospitalComment on above:Performed By: #### BCR #### [facility] (DEFAULT) [address] [place] [address] 20534TPGXUTRACL & HEMATOCRITon [id number] (Bld) [Volume fraction]39.9 %34.9 - 44.3 %[facility] HospitalHemoglobin (Bld) [Mass/Vol] 12.8 g/dL11.4 - 15.2 g/dLCleveland Clinic [facility] HospitalInterpretation and review of laboratory resultsNoVencor Hospital Hematocrit (Bld) [Volume fraction]39.9 %Weeply39.9-44.3[facility] TownshipComment on above:Performed By: #### CHM7 #### [facility] (DEFAULT) [address] [place] [address] 17501Wotkaymran (Bld) [Mass/Vol]12.8 g/mLGafqvu26.4-15.2[facility] TownshipComment on above:Performed By: #### CHM7 #### [facility] (DEFAULT) [address] [place] [address] 962[address]MEJG HCG, URINE (POC DEVICE)on [id number] HCG ( test) Ql (U)NegativeNegativeCleveland Clinic [facility] HospitalInterpretation and review of laboratory resultsNoMadison HealthTest performed at address of the patient encounter.[facility] HospitalCANDIDA AURIS SCREEN BY PCRon [id number] auris Screen by PCRNot detectedNormal Not DetectedKettering Health Washington TownshipComment on above:Order Comment: This test was performed using a real-time PCR assay. This test was developed, and its performance characteristics determined by [facility]. It has not been cleared or approved [...] by [facility]. It has not been cleared or approved by the FDA. The laboratory is regulated under CLIA as qualified to perform high-complexity testing. This test is used for clinical purposes. It should not be regarded as investigational or for research.Performed By: #### RUBENS AURIS SCREEN BY PCR #### [facility] (DEFAULT) [address] [address]BWVWTBU RHYTHM (SCANNED)on [id number] Clinic [facility] Hospital No Panel Informationon [id number] ReceivedLoma Linda University Medical Center-EastPRE-TX LIVING DONOR SERUM SAMPLEon [id number] ReceivedKettering Health PrebleComment on above: Performed By: #### PTXSER #### [facility] (DEFAULT) [address] [address]Vociy Comment: Ok to use EDTA tube.Performed By: #### PTPTT #### [facility] (DEFAULT) [address] [address]VE Unspecified body regionOrdered By: Unassigned Pacs on [id number] Clinic [facility] Hospital Work Phone: [place] Unspecified body regionon [id number] Study observation (narrative)[facility] HospitalBETA HCG, QUANT, BLOODon [id number] (Quant) Serum<2.6[facility] Comment on above:Result Comment: Non-: <10 mIU/mL Postmenopause: <10 mIU/mL Male: <10 mIU/mL FEMALE GESTATIONAL AGE 2-4 Weeks: 39.1-8,388 mIU/mL 5-6 Weeks: 861-88,769 mIU/mL 6-8 Weeks: 8,636-218,085 mIU/mL 8-10 Weeks: 18,700-244,467 mIU/mL 10-12 Weeks: 23,143-181,899 mIU/mL 13-27 Weeks: 6,303-97,171 mIU/mL 24-40 Weeks: 4,360-74,883 mIU/mL Test results cannot be interpreted as absolute evidence for the presence or absence of malignant disease.Performed By: #### PTPTT #### [facility] (DEFAULT) [address] [place], [place] [address]AUKTFKTfv 29-34-4518Koybtwj [Mass/Vol]9.4 mg/dL8.6 - 10.5 mg/dLCleveland Clinic [facility] General [facility] HospitalCalcium [Mass/Vol]9.4 mg/dLNormal8.6-10.5[facility] TownshipComment on above:Performed By: #### PTPTT #### [facility] (DEFAULT) [address] [place], [place] [address]CHL,PLATELETSon 43-10-0640Wdmsqwtqemn distribution width (RBC) [Ratio]12.1 %10.8 - 14.9 %[facility] HospitalHematocrit (Bld) [Volume fraction]47.1 %High34.9 - 44.3 %[facility] HospitalHemoglobin (Bld) [Mass/Vol]14.8 g/dL11.4 - 15.2 g/dLCleveland Clinic [facility] HospitalInterpretation and review of laboratory resultsAbnormRegency Hospital CompanyMCH (RBC) [Entitic mass]27.8 pg25.9 - 33.9 pgCleveland Clinic Akron General Lodi HospitalMCHC (RBC) [Mass/Vol]31.4 g/dL31.4 - 35.9 g/dLCleveland Clinic [facility] HospitalMCV (RBC) [Entitic vol]88.5 fL79.6 - 97.7 [facility] HospitalPlatelet mean volume (Bld) [Entitic vol]9.6 fL 8.5 - 12.2 [facility] HospitalPlatelets (Bld) [#/Vol]351 10*3/uL150 - 393 K/uLOSU Memorial Health SystemRBC (Bld) [#/Vol]5.32 10*6/uLHighOSU Memorial Health SystemWBC (Bld) [#/Vol]7.52 10*3/uL3.99 - 11.19 K/uLOSU Memorial Health SystemOSU Memorial Health SystemHematocrit (Bld) [Volume fraction]47.1 %High 34.9-44.3[facility] TownshipComment on above:Performed By: #### PTPTT #### [facility] (DEFAULT) [address] [place], [place] [address]Lvdojmabjs (Bld) [Mass/Vol]14.8 g/tBGzlswa73.4-15.2[facility] TownshipComment on above:Performed By: #### PTPTT #### [facility] (DEFAULT) [address] [place] [address] 59874QLG (RBC) [Entitic vol]88.5 lZHhskmu17.6-97.7[facility] TownshipComment on above:Performed By: #### PTPTT #### [facility] (DEFAULT) [address] [place] [address] 20229Mibt Cell Hgb27.8 ryZquyfv93.9-33.9[facility] TownshipComment on above:Performed By: #### PTPTT #### [facility] (DEFAULT) [address] [place] [address] 83477Brqj Cell Hgb Conc31.4 g/qLFtkkcd19.4-35.9[facility] TownshipComment on above:Performed By: #### PTPTT #### [facility] (DEFAULT) [address] [place] [address] 81983Gqjulvag mean volume (Bld) [Entitic vol]9.6 fLNormal8.5-12.2 [facility] TownshipComment on above:Performed By: #### PTPTT #### [facility] (DEFAULT) [address] [place] [address] 34681Gbackllqe (Bld) [#/Vol]351 10*3/rLXtqbwb644-729NvroKettering Health Washington TownshipComment on above:Performed By: #### PTPTT #### [facility] (DEFAULT) [address] [place], [place] [address]KAZ (Bld) [#/Vol]5.32 10*6/uLHigh3.91-5.04[facility] TownshipComment on above:Performed By: #### PTPTT #### [facility] (DEFAULT) [address] [place], [place] [address]YHU Uysrjnxsjvdy52.1 %Eztmnt57.8-14.9[facility] TownshipComment on above:Performed By: #### PTPTT #### [facility] (DEFAULT) [address] [place], [place] [address]QCE (Bld) [#/Vol]7.52 10*3/uLNormal3.99-11.19K[facility]tering Health Washington TownshipComment on above:Performed By: #### PTPTT #### [facility] (DEFAULT) [address] [place] [address] 33328RVQC 7 (LYTES,BUN,CREA,GLUC)on 49-84-1316Weslg gap [Moles/Vol] 14 mmol/L7 - 17 mmol/[facility] HospitalChloride [Moles/Vol]105 mmol/L98 - 108 mmol/[facility] HospitalCO2 [Moles/Vol]25 mmol/L21 - 31 mmol/[facility] HospitalCreatinine [Mass/Vol]0.80 mg/dL0.50 - 1.20 mg/dLCleveland Clinic Akron General Lodi HospitaleGFR, CKD-EPI, Female- PINFOCommunity Memorial HospitalComment on above:Reported eGFR is based on the CKD-EPI 2020 equation using creatinine, age, and sex.Glucose [Mass/Vol]100 mg/dVJzph15 - 99 mg/dLCleveland Clinic [facility] Interpretation and review of laboratory resultsAbnoMadison Health Osmolality Calc [Osmolality]293OS[facility] SystemPotassium [Moles/Vol]4.0 mmol/L3.5 - 5.0 mmol/LONE [facility] HOSPITALU [facility] - Andersonodium [Moles/Vol]140 mmol/L135 - 145 mmol/LONE [facility]AK HOSPITALU [facility] SystemUrea nitrogen [Mass/Vol]14 mg/dL7 - 25 mg/dLU Memorial Health SystemUrea nitrogen/Creatinine [Mass ratio]18 mg/mgOSOhiohealth Southeastern Medical CenterAnion gap [Moles/Vol]14 mmol/LNormal7-17[facility] TownshipComment on above:Performed By: #### PTPTT #### [facility] (DEFAULT) [address] [place] [address] 12325Ooziecjt [Moles/Vol]105 mmol/WSykelq59-695WwzqKettering Health Washington TownshipComment on above:Performed By: #### PTPTT #### [facility] (DEFAULT) [address] [place] [address] 11040NQ7 [Moles/Vol]25 mmol/HTglked70-27QdltKettering Health Washington TownshipComment on above:Performed By: #### PTPTT #### [facility] (DEFAULT) [address] [place] [address] 60431Yjnjglqtsx [Mass/Vol]0.80 mg/dLNormal0.50-1.20[facility] TownshipComment on above:Performed By: #### PTPTT #### [facility] (DEFAULT) [address] [place] [address] 57621tYFN, CKD-EPI, Female>Normal>=60K[facility] Washington TownshipComment on above:Result Comment: Reported eGFR is based on the CKD-EPI 2020 equation using creatinine, age, and sex.Performed By: #### PTPTT #### [facility] (DEFAULT) [address] [place] [address] 32740Nkzmfbm [Mass/Vol]100 mg/aPDjoe81-28VjovKettering Health Washington TownshipComment on above:Performed By: #### PTPTT #### [facility] (DEFAULT) [address] [place], [place] [address]Gamzptpvjs [Osmolality]293 mosm/zbJwayua716-561GlntKettering Health Washington TownshipComment on above:Performed By: #### PTPTT #### [facility] (DEFAULT) [address] [place] [address] 12289Vtjvxqyhe [Moles/Vol]4.0 mmol/LNormal3.5-5.0[facility] TownshipComment on above:Performed By: #### PTPTT #### [facility] (DEFAULT) [address] [place], [place] [address]Dlrgxv [Moles/Vol]140 mmol/LJiflwl916-863YfujKettering Health Washington TownshipComment on above:Performed By: #### PTPTT #### [facility] (DEFAULT) [address] [place] [address] 85496Hctb nitrogen [Mass/Vol]14 mg/dLNoformerly [facility]7-25[facility] Washington TownshipComment on above:Performed By: #### PTPTT #### [facility] (DEFAULT) [address] [place] [address] 69254Vmve nitrogen/Creatinine [Mass ratio]18 mg/mgClermont County HospitalComment on above:Performed By: #### PTPTT #### [facility] (DEFAULT) [address] [place] [address] 00960RCR IGG/IGM TOTAL - CIBCon 90-98-0763SNY Antibody (total IgG/IgM)NegativeClermont County HospitalComment on above:Result Comment: [id number] Testing performed by [address], [place] [address]Umxycuqtr By: #### PTPTT #### [facility] (DEFAULT) [address] [place] [address] 93469IBOLHC PERFOMABLEon 08-58-6158RYD [id number] County HospitalComment on above:Result Comment: Testing performed by [address], [place] [address]Klvdcnxvg By: #### [id number] #### [facility] (DEFAULT) [address] [place] [address] 12248Ifrisr Antibody (T. cruzi)NegativeClermont County HospitalComment on above:Result Comment: Testing performed by [address], [place] [address]Lcwmtgqag By: #### [id number] #### [facility] (DEFAULT) [address] [place] [address] 15317NWK CARY (IDT)NegativeClermont County HospitalComment on above:Result Comment: Testing performed by [address], [place] [address]Imxpvbpyc By: #### [id number] #### [facility] (DEFAULT) [address] [place] [address] 14029MSV CARY (IDT)NegativeClermont County HospitalComment on above:Result Comment: Testing performed by [address], [place] [address]Vzjjqcxbq By: #### [id number] #### [facility] (DEFAULT) [address] [place] [address] 35684Bkgfmzuro B Core AntibodyNegativeClermont County HospitalComment on above:Result Comment: Testing performed by [address], [place] [address]Nawvcezpd By: #### [id number] #### [facility] (DEFAULT) [address] [place] [address] 41710Cecmnturm B Surface AntigenNegativeClermont County HospitalComment on above:Result Comment: Testing performed by [address], [place] [address]Hadhrisfh By: #### [id number] #### [facility] (DEFAULT) [address] [place] [address] 90834Jfaqqxknc C Virus AntibodyNegativeClermont County HospitalComment on above:Result Comment: Testing performed by [address], [place] [address]Lnsniawib By: #### [id number] #### [facility] (DEFAULT) [address] [address]KUJ CARY (IDT)NegativeClermont County HospitalComment on above:Result Comment: Testing performed by [address], [place] [address]Shcduszul By: #### [id number] #### [facility] (DEFAULT) [address] [address]BIN-5/2/O AntibodyNegativeClermont County HospitalComment on above:Result Comment: Testing performed by [address] [place] [address]Fvtgwnwta By: #### [id number] #### [facility] (DEFAULT) [address] [address]Rcai Nile Virus CARY (IDT)NegativeClermont County HospitalComment on above:Result Comment: Testing performed by [address], [place] [address]Eterbdfyw By: #### [id number] #### [facility] (DEFAULT) [address] [address]BME VCA IGG ABon 24-43-6127RRD capsid IgG Ql (S)Positive AbnormalNegativeCleveland Clinic [facility] HospitalInterpretation and review of laboratory resultsAbnoMadison HealthOSOhiohealth Southeastern Medical CenterEBV VCA IgG AntibodyPositiveAbnormalNegativeK[facility]tering Health Washington Township Comment on above:Performed By: #### PTPTT #### [facility] (DEFAULT) [address] [address]QDH ( test) QlOrdered By: Cathy Lubin on 08-12-2023 HCG.beta subunit [Moles/Vol]mIU/mLOSOhiohealth Southeastern Medical CenterComment on above:Non- : <10 mIU/mL Postmenopause: <10 mIU/mL Male: <10 mIU/mL FEMALE GESTATIONAL AGE 2-4 Weeks: 39.1-8,388 mIU/mL 5-6 Weeks: 861-88,769 mIU/mL 6-8 Weeks: 8,636-218,085 mIU/mL 8-10 Weeks: 18,700-244,467 mIU/mL 10-12 Weeks: 23,143-181,899 mIU/mL 13-27 Weeks: 6,303-97,171 mIU/mL 24-40 Weeks: 4,360-74,883 mIU/mL Test results cannot be interpreted as absolute evidence for the presence or absence of malignant disease. [facility] HospitalMAGNESIUMon 89-30-5897Evxgqyouz [Mass/Vol]1.8 mg/dL1.6 - 2.6 mg/dLCleveland Clinic [facility] HospitalMagnesium [Mass/Vol]1.8 mg/dLNormal1.6-2.6 [facility] TownshipComment on above:Performed By: #### PTPTT #### [facility] (DEFAULT) [address] [address]Ka Panel Informationon 96-20-3280Qjivipqkbrxvqy and review of laboratory resultsNoVencor Hospital PHOSPHATE, INORGANICon 15-56-7674Fpsatncms [Mass/Vol]2.7 mg/dL2.2 - 4.6 mg/dLCleveland Clinic [facility] HospitalPhosphorous2.7 mg/dLNormal2.2-4.6[facility] TownshipComment on above:Performed By: #### PTPTT #### [facility] (DEFAULT) [address] [address]MI,INR,PTTon 50-85-9695kHDX Coag (PPP) [Time]26.0 [facility] HospitalINR Coag (Bld) [Relative time]1.0 {INR}0.9 - 1.1[facility] HospitalInterpretation and review of laboratory resultsNoMadison HealthPT Coag (PPP) [Time]13.2 sOSU Memorial Health SystemOSU Memorial Health SystemaPTT Coag (Bld) [Time]26.0 zLnobum41.0-34.3[facility] TownshipComment on above:Performed By: #### PTPTT #### [facility] (DEFAULT) [address] [place] [address] 24024JEK Coag (PPP) [Relative time]1.0 {INR}Normal0.9-1.1[facility] TownshipComment on above:Performed By: #### PTPTT #### [facility] (DEFAULT) [address] [place] [address] 27274QI Coag (PPP) [Time]13.2 xVbzkhv01.9-14.2[facility] TownshipComment on above:Performed By: #### PTPTT #### [facility] (DEFAULT) [address] [place] [address] 88758VWI ([facility])on 74-21-7200Omiobijkx (PK-TP)NegativeClermont County HospitalComment on above:Result Comment: [id number] Testing performed by [address] [place] [address]Ljofhwvgz By: #### XRPR #### [facility] (DEFAULT) [address] [place] [address] 14658EYHV AND SCREEN - PREADMISSIONon 67-04-1221ZRZ/RH(D) TYPE PositiveClermont County HospitalComment on above: Performed By: #### XMPO #### [facility] (DEFAULT) [address] [place] [address] 38937PGTHRLYFZW REFLEX TO CULTURE PERFORMABLEon 08-12-2023 Appearance (U)ClearClearOSU Memorial Health SystemBacteria LM Ql (Urine sed) ABSENTABSENTOSU Memorial Health SystemColor (U)YellowYellowOSOhiohealth Southeastern Medical CenterEpithelial cells.squamous LM Ql (Urine sed)0-2/hpf0-2/hpf, 3-5/hpf = 1+[facility] HospitalGlucose Test strip (U) [Mass/Vol]NegativeNegativeOSOhiohealth Southeastern Medical CenterInterpretation and review of laboratory resultsAbnormalOSU Memorial Health SystemKetones (U) [Mass/Vol]NegativeNegativeOSOhiohealth Southeastern Medical CenterLeukocyte esterase Test strip Ql (U)TraceAbnormalNegativeOSU Memorial Health SystemNitrite Ql (U)NegativeNegativeOSOhiohealth Southeastern Medical CenterpH (U)7.0 [pH]5.0 - 7.0OS[facility] Health SystemProtein (U) [Mass/Vol]NegativeNegativeOSU Memorial Health SystemRBC (U) [#/Vol]NegativeNegativeOSU Memorial Health SystemRBC LM.HPF (Urine sed) [#/Area]0-2OSU [facility] - Andersonpecific gravity (U) [Rel density]1.0071.001 - 1.035OSU Memorial Health SystemUrobilinogen (U) [Mass/Vol]0.2 E.U./dL0.2 E.U/dL, 1.0 E.U/dLOSU Memorial Health SystemWBC LM.HPF (Urine sed) [#/Area]0 - 5OS[facility] SystemOS[facility] Appearance (U)ClearNormalClearKettering Health Washington TownshipComment on above:Performed By: #### CHM7 #### [facility] (DEFAULT) [address] [place] [address] 83857HxlmyatjEBZFPBPlvmrxGYWNGBRtcrKettering Health Washington TownshipComment on above:Performed By: #### CHM7 #### [facility] (DEFAULT) [address] [place], [place] [address]Yjgik UrineNegativeNormalNegativeKettering Health Washington TownshipComment on above:Performed By: #### CHM7 #### [facility] (DEFAULT) [address] [place], [place] [address]Acbah (U)YellowNormalYellowKettering Health Washington TownshipComment on above:Performed By: #### CHM7 #### [facility] (DEFAULT) [address] [place] [address] 757[address]Dltedkn Ql (U)NegativeNormalNegWexner Medical CenterComment on above:Performed By: #### CHM7 #### [facility] (DEFAULT) [address] [place] [address] 18230Cbvrlgy Ql (U)NegativeNormalNegWexner Medical CenterComment on above:Performed By: #### CHM7 #### [facility] (DEFAULT) [address] [place] [address] 25122Wuxvvjqwr esterase Test strip Ql (U)TraceAbnormalNegWexner Medical CenterComment on above:Performed By: #### TAYAM7 #### [facility] (DEFAULT) [address] [place] [address] 88367Mtsottnh UrineNegativeNormalNegWexner Medical CenterComment on above:Performed By: #### TAYAM7 #### [facility] (DEFAULT) [address] [place] [address] 11297zY (U)7.0 [pH]Normal5.0-7.0K[facility] Washington TownshipComment on above:Performed By: #### TAYAM7 #### [facility] (DEFAULT) [address] [place] [address]Wchsrua UrineNegativeNormalNegWexner Medical CenterComment on above:Performed By: #### TAYAM7 #### [facility] (DEFAULT) [address] [place] [address] 93246UVV Zoolc2-3Hkjfle3-9McfqKettering Health Washington TownshipComment on above:Performed By: #### CHM7 #### [facility] (DEFAULT) [address] [place] [address] 35568Woctjpse Ashkum Urine1.639Hdzcye4.001-1.035K[facility] Health Washington TownshipComment on above:Performed By: #### CHM7 #### [facility] (DEFAULT) [address] [place], [place] [address]Mlhefghn/Epithelial Cells0-2/hpfNormal0-2/hpf, 3-5/hpf = 1+ [facility] TownshipComment on above:Performed By: #### CHM7 #### [facility] (DEFAULT) [address] [place] [address] 854[address]Ubsxjroowksn Urine0.2 E.U./dLNormal0.2 E.U/dL, 1.0 E.U/dLKettering Health Washington TownshipComment on above:Performed By: #### CHM7 #### [facility] (DEFAULT) [address] [place] [address] 13933JOR Urine0 - 8Hcihxj9 - 5K[facility] Health Washington TownshipComment on above:Performed By: #### CHM7 #### [facility] (DEFAULT) [address] [place] [address] 0[address]BP CHEST PA AND LATERAL 2 VIEWSon 87-21-1447CK CHEST PA AND LATERAL 2 VIEWSEXAM: XR CHEST PA AND LATERAL 2 VIEWS, [...] I have reviewed and approved this report. NormalKettering Health Washington TownshipXR Chest PA and Lateralon 84-12-2753WPGTKDPTPM: No acute cardiopulmonary disease I personally viewed and interpreted these images and I have reviewed and approved this report. RADIOLOGYEXAM: XR CHEST PA AND LATERAL 2 VIEWS, [...] heart size. Unremarkable aorta. Chest Wall: Normal RADIOLOGYWright, Sabrina Perez MD - 08/12/2023 EXAM: XR CHEST PA AND [...] I have reviewed and approved this report. [facility] HospitalRadiology Study observation (narrative)[facility] HospitalXR Chest PA and LateralOrdered By: Sabrina Silvestre on 45-81-9078YTICleveland Clinic [facility] Hospital Work Phone: mr Abdomen WO and W contrast Charlene 06-25-2023 IMPRESSION: 1. Benign hepatic hemangioma in segment 7/8. 2. Stable small arterially enhancing focus in hepatic segment 2/3 which is favored to be benign. It may be a small FNH or a shunt. RADIOLOGYEXAM: MRI ABDOMEN WITH AND WITHOUT CONTRAST, 06/24/2023 [...] No enlarged or morphologically abnormal lymph nodes. Peritoneum/retroperitoneum: No ascites. Vasculature: The abdominal aorta is normal in course and caliber. Patent celiac and superior mesenteric arteries. Patent portal, splenic, and superior mesenteric veins. Body Wall: Normal. Bones: Benign hemangiomas. No aggressive lesion RADIOLOGYBlanka Mcgraw MD - 06/25/2023 EXAM: MRI ABDOMEN [...] No enlarged or morphologically abnormal lymph nodes. Peritoneum/retroperitoneum: No ascites. Vasculature: The abdominal aorta is [...] be a small FNH or a shunt. [facility] HospitalMR Abdomen WO and W contrast IVOrdered By: Blanka Mcgraw on 17-80-2816RYXCleveland Clinic [facility] Work Phone: MR Abdomen WO and W contrast Charlene 71-39-1151Jcfdkoiqu Study observation (narrative)[facility] HospitalXR Chest PA and Lateralon 70-98-2703YRWOFGOPAU: No acute cardiopulmonary disease RADIOLOGYEXAM: XR CHEST PA AND LATERAL 2 VIEWS, [...] heart size. Unremarkable aorta. Chest Wall: Normal RADIOLOGYWright, Sabrina Perez MD - 06/24/2023 EXAM: XR CHEST PA AND [...] Normal IMPRESSION IMPRESSION: No acute cardiopulmonary disease [facility] SystemRadiology Study observation (narrative)OSOhiohealth Southeastern Medical CenterXR Chest PA and LateralOrdered By: Sabrina Silvestre on 05-94-8497UDWCleveland Clinic [facility] Work Phone: HLX TYPING (SOLID ORGAN)on 76-02-6280ST4,6OSOhiohealth Southeastern Medical CenterDPA1*01:03OS[facility] SystemDPA11-[facility] DPB1* IGD1488:01OSOhiohealth Southeastern Medical CenterDPB1*RML8J00:01OSOhiohealth Southeastern Medical CenterDQA1*01:02OS[facility] Health SystemDQA1*CMK3253:01OSOhiohealth Southeastern Medical CenterDQB18,6OS[facility] SystemDQB1*03:02[facility] SystemDQB1* - VDQ6649:02[facility] SystemDR4,15OS[facility] SystemDR51,52,53 53,51OS[facility] Health SystemDRB1*04:01[facility] SystemDRB1* - DRB11 15:01[facility] SystemDRB4*01:03[facility] SystemDRB5*01:01OSOhiohealth Southeastern Medical CenterHLA A*02:01OSU [facility] Health SystemHLA A* - HLAAA31:01[facility] SystemHLA B*13:02OS[facility] Health SystemHLA B* - XJYEAI10:01OS[facility] Health SystemHLA C*03:03[facility] Health SystemHLA C* - HLACC06:02OSU [facility] Health SystemHL INTERPRETATIONLISTED AMBIGUITIES ARE NOT EXCLUDED: DPB1*1315:01 DPB1*1321:03/1321:03/1435:03/1443:01QOSU Memorial Health SystemComment on above: Testing performed by NGS (next-generation sequencing) and/or SSOP (sequence- specific oligonucleotide probe methodology). Additional testing may be [...] need for FDA approval.Testing performed by the [facility] Clinical Histocompatibility Laboratory. [facility] number: [id number]. CLIA number: [id number], Director: Jamal Jim, PhD, F([facility]). HLA-A High resolution Nom (Bld/Tiss)2,31OSU [facility] Health SystemHLA-B SBT High resolution Nom (Bld/Tiss)13,62OSU Memorial Health SystemHLA-C SBT High resolution Nom (Bld/Tiss)9,6OS[facility] Health SystemOSOhiohealth Southeastern Medical CenterCA 125on 62-61-4855Giawwy Ag 125 Qn17 [arb'U]/mLNINF - 30 U/mLCleveland Clinic [facility] General [facility] Hospital Comment on above:This test was performed on the Quantum OPS Immunoassay platform which is a 2-step sandwich chemiluminescent immunoassay. It is important to note that assays using different manufacturers and/or methods may not be comparable.Interpretation and review of laboratory resultsNormalOSU Memorial Health SystemOSOhiohealth Southeastern Medical CenterCEAon 92-38-9942Eohhqvnmmykgnzky Ag [Mass/Vol]ng/mLNINF - 5.0 ng/mLCleveland Clinic Akron General Lodi HospitalComment on above:This test was performed on the Siemens CeloNova IM Immunoassay platform which is a 2-step sandwich chemiluminescent immunoassay. It is important to note that assays using different manufacturers and/or methods may not be comparable. Interpretation and review of laboratory resultsNoMadison Health OSU Memorial Health SystemOXALATE, 24HR URINEon 94-88-5059Vcinfvtngb duration (U) 24 hOSU Memorial Health SystemOxalate (24H U) [Mass/Time]27.3OSU Memorial Health SystemOxalate (24H U) [Moles/Time]0.31OSU [facility] Health SystemComment on above: ADDITIONAL INFORMATION This test has been modified from the executive assistant to general counsel's instructions. Its performance characteristics were determined by [facility] in a manner consistent with CLIA requirements. This test has not been cleared or approved by the U.S. Food and Drug Administration. Specimen volume (24H U)4.387 LOSOhiohealth Southeastern Medical CenterComment on above: Test Performed by: [place] [address] Can Reconditioner: Brennan Cummings M.D. Ph.D.; CLIA# [id number] [facility] HospitalDLIDON PERFOMABLEon 18-12-1290KCA [id number] Clinic [facility] HospitalComment on above:Testing performed by [address] [place] [address] Chag[place] Antibody (T. cruzi)NegativeCleveland Clinic Akron General Lodi HospitalComment on above: Testing performed by [address] [place] [address] HBV CARY (IDT)NegativeCleveland Clinic Akron General Lodi HospitalComment on above:Testing performed by [address] [place] [address] HCV CARY (IDT)NegativeCleveland Clinic Akron General Lodi HospitalComment on above:Testing performed by [address] [place] [address] Hepatitis B Core AntibodyNegativeCleveland Clinic [facility] Lodi HospitalComment on above: Testing performed by [address] [place] [address] Hepatitis B Surface AntigenNegativeCleveland Clinic [facility] HospitalComment on above: Testing performed by [address] [place] [address] Hepatitis C Virus AntibodyNegativeCleveland Clinic [facility] Lodi HospitalComment on above: Testing performed by [address] [place] [address] HIV CARY (IDT)NegativeCleveland Clinic [facility] General Lodi HospitalComment on above:Testing performed by [address] [place] [address] HIV-1/2/O AntibodyNegativeCleveland Clinic [facility] L[facility] HospitalComment on above:Testing performed by [address] [place] [address] West Nile Virus CARY (IDT)NegativeCleveland Clinic Akron General Lodi HospitalComment on above: Testing performed by [address] [place] [address] [facility] SystemLaboratory - Chemistry and Chemistry - challengeon 06-29-5484Lbhcmht (24H U) [Mass/Time]439[facility] HospitalComment on above: ADDITIONAL INFORMATION This test was developed and its performance characteristics determined by [facility] in a manner consistent with CLIA requirements. This test has not been cleared or approved by the U.S. Food and Drug Administration. Laboratory - Specimen informationon 41-19-0345Nhqxktbgwb duration (U)[address] [facility] Hospitalpecimen volume (24H U)4.387 [facility] Comment on above: Test Performed by: [facility] [address] [address] Can Reconditioner: Brennan Cummings M.D. Ph.D.; CLIA# [id number] No Panel Informationon 43-04-0072EQCCleveland Clinic [facility]ron General [facility] HospitalNo Panel Information Ordered By: Judie Reeves on 95-61-5490MUI Antibody (total IgG/IgM)Negative [facility] HospitalComment on above:[id number] Testing performed by [address] [place] [address] [facility] HospitalRPR (CIBC)on 13-53-5006Othkfjbox (PK-TP)NegativeCleveland Clinic Ak[facility] General Lodi HospitalComment on above:[id number] Testing performed by [address] [place] [address] [facility] HospitalCBC AND ELECTRONIC DIFFon 17-77-3703Xdjmafjmq (Bld) [#/Vol]0.07 10*3/uL0.00 - 0.15 K/uLCleveland Clinic [facility] General [facility] HospitalBasophils/100 WBC (Bld)0.8 %[facility] HospitalDifferential cell count method Nom (Bld) Electronic DifferentialCleveland Clinic [facility] HospitalEosinophils (Bld) [#/Vol]K/uL 0.00 - 0.42 K/uLCleveland Clinic [facility] HospitalEosinophils/100 WBC (Bld)0.0 %[facility] HospitalErythrocyte distribution width (RBC) [Ratio]12.2 %10.8 - 14.9 %[facility] HospitalHematocrit (Bld) [Volume fraction]47.4 %High34.9 - 44.3 %[facility] HospitalHemoglobin (Bld) [Mass/Vol]15.3 g/tLHhwz03.4 - 15.2 g/dLCleveland Clinic [facility] HospitalImmature granulocytes (Bld) [#/Vol]0.05 10*3/uLNINF - 0.08 K/uLOSOhiohealth Southeastern Medical CenterImmature granulocytes/100 WBC (Bld)0.6 %[facility] HospitalInterpretation and review of laboratory resultsAbnormalOCommunity Memorial HospitalLymphocytes (Bld) [#/Vol]1.96 10*3/uL 1.16 - 3.51 K/uLCleveland Clinic Akron General Lodi HospitalLymphocytes/100 WBC (Bld)21.9 %[facility] HospitalH (RBC) [Entitic mass]28.8 pg25.9 - 33.9 pgCleveland Clinic Akron General Lodi HospitalMCHC (RBC) [Mass/Vol]32.3 g/dL31.4 - 35.9 g/dLCleveland Clinic Akron General Lodi HospitalMCV (RBC) [Entitic vol]89.3 fL79.6 - 97.7 [facility] Monocytes (Bld) [#/Vol]0.49 10*3/uL0.22 - 0.87 /[facility] Monocytes/100 WBC (Bld)5.5 %[facility] HospitalNeutrophils (Bld) [#/Vol] 6.39 10*3/uL1.64 - 7.28 /[facility] CenterNucleated RBC/100 WBC (Bld) [Ratio]0.0 %[facility] HospitalPlatelet mean volume (Bld) [Entitic vol]9.1 fL8.5 - 12.2 [facility] HospitalPlatelets (Bld) [#/Vol]439 10*3/dIBnzv155 - 393 K/[facility] CenterRBC (Bld) [#/Vol]5.31 10*6/uL HighSouthwest General Health Centeregmented neutrophils/100 WBC (Bld)71.2 %[facility] HospitalWBC (Bld) [#/Vol]8.96 10*3/uL3.99 - 11.19 /[facility]CSF Medical CenterHCG ( test) Ql 84-85-6745ADB.beta subunit [Moles/Vol]3.9 mmol/LmIU/mLCleveland Clinic Akron General Lodi HospitalComment on above: Non-: <10 mIU/mL Postmenopause: <10 mIU/mL Male: <10 mIU/mL FEMALE GESTATIONAL AGE 2-4 Weeks: 39.1-8,388 mIU/mL 5-6 Weeks: 861-88,769 mIU/mL 6-8 Weeks: 8,636-218,085 mIU/mL 8-10 Weeks: 18,700-244,467 mIU/mL 10-12 Weeks: 23,143-181,899 mIU/mL 13-27 Weeks: 6,303-97,171 mIU/mL 24-40 Weeks: 4,360-74,883 mIU/mL Test results cannot be interpreted as absolute evidence for the presence or absence of malignant disease. [facility] HospitalLaboratory - Chemistry and Chemistry - challengeon 46-52-9400Tspneef DL <= 20 mg/L (24H U) [Mass/Time][facility] Comment on above:Not CalculatedAlbumin DL <= 20 mg/L (U) [Mass/Vol]mg/Lmg/LOSU [facility] Health SystemCreatinine (24H U) [Mass/Vol]34.14 mg/dLCleveland Clinic Akron General Lodi HospitalCreatinine (24H U) [Mass/Vol]1.50OS[facility] Andersonodium (24H U) [Moles/Vol]50 mmol/LOSU [facility] Andersonodium (24H U) [Moles/Vol]219OS[facility] SystemCalcium (24H U) [Mass/Time]5.3 mg/dLCleveland Clinic Akron General Lodi HospitalCalcium (24H U) [Mass/Time]232.5OS[facility] Health SystemUrate (24H U) [Mass/Time]0.8OS[facility] Health SystemUrate (U) [Mass/Vol]18.9 mg/dLCleveland Clinic Ak[facility] Lodi HospitalCreatinine [Mass/Vol]0.65 mg/dL0.50 - 1.20 mg/dLCleveland Clinic [facility] HospitalAverage glucose Estimated from glycated hemoglobin (Bld) [Mass/Vol]88 mg/dLCleveland Clinic [facility] HospitalAlbumin DL <= 20 mg/L (U) [Mass/Vol]mg/Lmg/LOSOhiohealth Southeastern Medical CenterAlbumin/Creatinine DL <= 20 mg/L (U) [Ratio][facility] HospitalComment on above:Not CalculatedCreatinine (24H U) [Mass/Vol]38.96 mg/dLCleveland Clinic [facility] HospitalCreatinine (24H U) [Mass/Vol]39.32 mg/dLOSU Memorial Health SystemAlbumin [Mass/Vol]4.7 g/dL3.5 - 5.0 g/dLOSU [facility] ALP [Catalytic activity/Vol]50 U/L32 - 126 U/[facility] HospitalALT [Catalytic activity/Vol]22 U/L9 - 48 U/[facility] HospitalAnion gap [Moles/Vol]15 mmol/L7 - 17 mmol/[facility] HospitalAST [Catalytic activity/Vol]25 U/L10 - 39 U/[facility] HospitalBilirubin [Mass/Vol]0.5 mg/dLNINF - 1.5 mg/dLOSU Memorial Health SystemBilirubin.direct [Mass/Vol]0.1 mg/dLNINF - 0.3 mg/dLOSU Memorial Health SystemCalcium [Mass/Vol]9.6 mg/dL8.6 - 10.5 mg/dLOSOhiohealth Southeastern Medical CenterChloride [Moles/Vol]101 mmol/L98 - 108 mmol/L [facility] SystemCO2 [Moles/Vol]26 mmol/L21 - 31 mmol/[facility] HospitalCreatinine [Mass/Vol]0.65 mg/dL0.50 - 1.20 mg/dLOSOhiohealth Southeastern Medical CenterGamma glutamyl transferase [Catalytic activity/Vol]16 U/L8 - 64 U/[facility] HospitalGlucose [Mass/Vol]85 mg/dL70 - 99 mg/dLCleveland Clinic Akron General Lodi HospitalLDH Lactate to pyruvate reaction [Catalytic activity/Vol]178 U/L100 - 190 U/[facility] HospitalMagnesium [Mass/Vol]2.0 mg/dL1.6 - 2.6 mg/dLOSOhiohealth Southeastern Medical CenterOsmolality Calc [Osmolality]288[facility] Phosphate [Mass/Vol]3.0 mg/dL2.2 - 4.6 mg/dLOSU Memorial Health SystemPotassium [Moles/Vol]3.6 mmol/L3.5 - 5.0 mmol/[facility] HospitalProtein [Mass/Vol] 8.2 g/dL6.4 - 8.3 g/dLOSU [facility] - Andersonodium [Moles/Vol]138 mmol/L135 - 145 mmol/LOSU Memorial Health SystemUrea nitrogen [Mass/Vol]15 mg/dL7 - 25 mg/dL [facility] Health SystemUrea nitrogen/Creatinine [Mass ratio]23 mg/mgOSU Memorial Health SystemUrate [Mass/Vol]3.4 mg/dL2.8 - 6.0 mg/dLOSOhiohealth Southeastern Medical Center pH (U)7.0 [pH]5.0 - 7.0OS[facility] - Andersonpecific gravity (U) [Rel density]1.0071.001 - 1.035OSOhiohealth Southeastern Medical CenterUrobilinogen (U) [Mass/Vol] 0.2 E.U./dL0.2 E.U/dL, 1.0 E.U/dLOSOhiohealth Southeastern Medical CenterLaboratory - Chemistry and Chemistry - challengeOrdered By: Nora Langford on 02-48-1647Iblemvb (24H U) [Mass/Time][facility] Health SystemComment on above: Not Calculated Laboratory - Coagulationon 26-77-7128eLKB Coag (PPP) [Time]27.2 [facility] HospitalINR Coag (Bld) [Relative time]0.9 {INR}0.9 - 1.1[facility] HospitalPT Coag (PPP) [Time]12.4 [facility] HospitalLaboratory - Fertility testingOrdered By: Nora Langford on 27-55-4281Yflaxmcm volume (Deon)4387 mLCleveland Clinic Akron General [facility] HospitalLaboratory - Fertility testingon 67-14-2187Nbsmmtvr volume (Deon)4387 mLSouthwest General Health Centerpecimen volume (Deon)4387 mLSouthwest General Health Centerpecimen volume (Deon)4387 mLCleveland Clinic Ak[facility] HospitalLaboratory - Hematology and Cell countson 65-06-9404VtD9w (Bld) [Mass fraction]4.7 %4.7 - 5.6 %[facility] SystemLaboratory - Microbiology and Antimicrobial susceptibilityon 97-36-9195FTR capsid IgG Ql (S)PositiveAbnormalNegativeOSU Memorial Health SystemLaboratory - Specimen informationOrdered By: Nora Langford on 64-16-3581Dkhwtxmpno interval from baseline (Specimen) [Time]24hrs [facility] SystemLaboratory - Specimen informationon 06-10-2023 Collection interval from baseline (Specimen) [Time]24hrsOSU Memorial Health SystemCollection interval from baseline (Specimen) [Time]24hrsOSU Memorial Health SystemCollection interval from baseline (Specimen) [Time]24hrsOSU Memorial Health SystemAppearance (U)ClearClearOSU Memorial Health SystemColor (U)Yellow YellowOSU Memorial Health SystemLaboratory - UrinalysisOrdered By: Nora Langford on 12-32-8878Khegjec Unsp time (U) [Mass/Vol]mg/dLmg/dLOSU Memorial Health SystemLaboratory - UrinalysisOrdered By: Pawel Ruffin on 06-10-2023 Protein Unsp time (U) [Mass/Vol]mg/dLmg/dLOSU Memorial Health SystemLaboratory - Urinalysison 39-13-6332Todglcbv LM Ql (Urine sed)ABSENTABSENTOSU Memorial Health SystemEpithelial cells.squamous LM Ql (Urine sed)0-2/hpf0-2/hpf, 3-5/hpf = 1+[facility] SystemGlucose Test strip (U) [Mass/Vol]NegativeNegativeOSU Memorial Health SystemKetones (U) [Mass/Vol]NegativeNegativeOSU Memorial Health SystemLeukocyte esterase Test strip Ql (U)NegativeNegativeOSU Memorial Health SystemNitrite Ql (U)NegativeNegativeOSU Memorial Health SystemProtein (U) [Mass/Vol]NegativeNegativeOSU Memorial Health SystemRBC (U) [#/Vol]Negative NegativeOSU Memorial Health SystemRBC LM.HPF (Urine sed) [#/Area]0-2OS[facility] Health SystemWBC LM.HPF (Urine sed) [#/Area]0 - 5OS[facility] SystemNo Panel InformationOrdered By: Nora Langford on 59-50-9258DVUOhiohealth Southeastern Medical CenterNo Panel Informationon 14-94-3684WID Virtua MarltonInterpretation and review of laboratory resultsAbHighland Springs Surgical CenterCystatin C0.79 mg/L0.51 - 1.05 mg/LOSU [facility] Health SystemEGFR BY CYS C AND CREATININE, VRETDT030- [facility] HospitalComment on above:Reported eGFR is based on the CKD-EPI 2020 equation using cystatin C, creatinine, age, and sex. Interpretation and review of laboratory resultsNoWest Anaheim Medical CenterABO/RH(D) TYPEPositiveOSOhiohealth Southeastern Medical CenterOSOhiohealth Southeastern Medical CenterOSOhiohealth Southeastern Medical CenterOSOhiohealth Southeastern Medical CenterThe reference range has not been established for random urine specimens. The test result should be integrated into the clinical context for interpretation.[facility] Valley HospitaleGFR, CKD-EPI, Female- [facility] HospitalComment on above:Reported eGFR is based on the CKD-EPI 2020 equation using creatinine, age, and sex.Interpretation and review of laboratory resultsNoVencor HospitalInterpretation and review of laboratory resultsNoVencor HospitalInterpretation and review of laboratory resultsNoVencor HospitalInterpretation and review of laboratory resultsNoVencor HospitalNo Panel InformationOrdered By: Pawel Ruffin on 05-56-8966Lxd reference range has not been established for random urine specimens. The test result should be i ntegrated into the clinical context for interpretation.[facility] OaklandCalcium [Mass/volume] in Serum or PlasmaOrdered By: Wes Chaves on 35-25-2936Dxatkck [Mass/Vol]9.5 mg/dL8.6-10.3FSelect Medical [place]Health Rehabilitation HospitalCarbon dioxide, total [Moles/volume] in Serum or PlasmaOrdered By: Wes Chaves on 07-16-4013VT3 [Moles/Vol]25.9 mmol/L21.0-31.0[facility]acon[facility] HospitalChloride [Moles/volume] in Serum or PlasmaOrdered By: Wes Chaves on 44-08-0877Hvytlayi [Moles/Vol]104 mmol/F21-417ThbbocpvtProtestant Deaconess HospitalCholesterol [Mass/volume] in Serum or PlasmaOrdered By: Wes Chaves on 07-39-7985Ilovclulkxj [Mass/Vol]181 mg/oH069-168JuizxmedxProtestant Deaconess HospitalComment on above:Chol less than 200 mg/dl low riskChol 201-239 mg/dl borderline riskChol 240 mg/dl and greater high riskCholesterol in LDL Calc [Mass/Vol]Ordered By: Wes Chaves on 85-95-3455Xgvxgydrcxk in LDL [Mass/Vol]107 mg/dL0-100[facility] HospitalComment on above:LDL ATP III CLASSIFICATIONLDL less than 100 mg/dL OptimalLDL 100-129 mg/dL Near or above qjkvqfyZUJ833-254 mg/dL Borderline highLDL 160-189 mg/dL HighLDL greater than 189 mg/dL Very highCholesterol in VLDL Calc [Mass/Vol]Ordered By: Wes Chaves on 09-09-2459Bgkleqdrrpm in VLDL [Mass/Vol]16 mg/dLProtestant Deaconess HospitalCreatinine [Mass/volume] in Serum or PlasmaOrdered By: Wes Chaves on 24-86-6567Viungztnws [Mass/Vol]0.82 mg/dL0.60-1.20[facility] HospitalGlucose [Mass/volume] in Serum or PlasmaOrdered By: Wes Chaves on 00-14-3131Pdwfniz [Mass/Vol]77 mg/qY18-908YxmllzgxzProtestant Deaconess Hospital Comment on above:ADA recommended reference rangeRandom Glucose Reference Range is dependent on time and content of last meal. Glucose of more than 200 mg/dL in a nonstressed, ambulatory subject supports the diagnosisof Diabetes Mellitus.No Panel InformationOrdered By: Wes Chaves on 94-35-1123Ojhiiqsem GFR (CKD-EPI)> 60.0 mL/MinProtestant Deaconess HospitalPharmacy Creatinine Clearance (Chem N/AFSelect Medical OhioHealth Rehabilitation HospitalPotassium [Moles/volume] in Serum or Plasma Ordered By: Wes Chaves on 54-51-2365Lzcywbinj [Moles/Vol]4.4 mmol/L3.5-5.1 [facility] Hospitalerum or plasma anion gap determinationOrdered By: Wes Chaves on 53-88-4392Sbqnq gap [Moles/Vol]12.5 mmol/L6.0-15.0[facility] Hospitalerum or plasma high density lipoprotein (HDL) cholesterol measurementOrdered By: Wes Chaves on 39-97-7681Elitjgdbqgg in HDL [Mass/Vol]58 mg/nE91-45IihprnacrProtestant Deaconess HospitalComment on above:HDL CHOL ATP-III CLASSIFICATION Cardiovascular RiskHDL > or equal to 60 mg/dL LOWHDL < 40 mg/dL HIGHSerum or plasma total cholesterol/high density lipoprotein (HDL) cholesterol mass ratOrdered By: Wes Chaves on 11-22-2022 Cholesterol.total/Cholesterol in HDL [Mass ratio]3.1 {ratio}<5.0[facility] Hospitalodium [Moles/volume] in Serum or PlasmaOrdered By: Wes Chaves on 40-25-4268Pbbzsv [Moles/Vol]138 mmol/B836-998UqhxvhlfwProtestant Deaconess HospitalTriglyceride [Mass/volume] in Serum or PlasmaOrdered By: Wes Chaves on 39-36-3119Hqcregaulfcm [Mass/Vol]82 mg/dL0-149[facility] Comment on above:TRIG ATP III CLASSIFICATIONTRIG less than 150 mg/dL NormalTRIG 150-199 mg/dL Borderline highTRIG 200-500 mg/dL High TRIG greater than 500 mg/dL Very highStandard traceable to the Center for Disease Conrtrol and Prevention (CDC) test method.Urea nitrogen [Mass/volume] in Serum or PlasmaOrdered By: Wes Chaves on 68-74-5368Shri nitrogen [Mass/Vol]12 mg/dL7-[facility] HospitalCOMPLEMENT C1Qon 72-02-8946Kqdipnocjw C1q, Lhtrwlerqeks48.5 mg/dL Tppopp03.3-20.5ThBarnesville HospitalComment on above:Performed By: #### COMPC1 #### [facility] [address] [address] [address] Rose Marie CruzGLOBINicol QUAL W/QUANT REFELXon 46-47-8693Vwecewmrtqtg, Ql, Serum, RflxCommentNormalNone detectedThe [facility] Hospitalment on above: Result Comment: None Detected at 72 hours This test was developed and its performance characteristics determined by [facility]. It has not been cleared or approved by the Food and Drug Administration.Performed By: #### CRYOGLO ####[facility] [address] [address]Dr. Rose Marie Robles IMMUNOGLOBULIN E, TOTALon 53-31-6630Uddegpssvzrkom E, Total9 IU/mLNormal6-495The [facility] on above:Performed By: #### IGETOT #### [facility] [address] [place] [address] Dr. Rose Marie Zurita TOTAL ISO ENZYMESon 05-91-0406KK-BB0 %Hafsky8Qhn [facility] Hospitalment on above:Performed By: #### CK ISO #### [facility] [address] [place] [address] Dr. Rose Marie Zurita-MB0 %Normal0-3The [facility] Hospitalment on above:Performed By: #### CK ISO #### [facility] [address] [place] [address] Dr. Rose Marie Zurita-MM100 %Zyvcwj42-306Kbj [facility] Hospitalment on above: Performed By: #### CK ISO #### [facility] [address] [place] [address] Dr. Rose Marie RoblesCreatine Kinase,Total,Serum94 U/PYrazul64-530Jvg [facility] on above:Performed By: #### CK ISO #### [facility] [address] [place] [address] Dr. Rose Marie Causey Type 10 %NormalNot ObservedThe [facility] HospitalCombronson lakeview hospital on above:Performed By: #### CK ISO #### [facility] [address] [place] [address] Dr. Rose Marie Causey Type 20 %NormalNot ObservedThe [facility] HospitalComment on above:Performed By: #### CK ISO #### [facility] [address] [place] [address] Dr. Rose Marie Matos SUBCLASSES (1-4) AND TOTALon 57-31-0493CtC, Subclass 1700 mg/vOTvdhuz663-931Zfx [facility] HospitalComment on above:Performed By: #### IGGSB #### [facility] [address] [place] [address] Dr. Rose Marie Matos, Subclass 2436 mg/iFHcmdwv605-242Akp [facility] on above:Performed By: #### IGGSB #### [facility] [address] [place] [address] Dr. Rose Marie Matos, Subclass 358 mg/zXEwpfru18-740Saf [facility] on above:Performed By: #### IGGSB #### [facility] [address] [place] [address] Dr. Rose Marie Matos, Subclass 429 mg/dLNormal2-96The [facility] Hospitalment on above:Performed By: #### IGGSB #### [facility] [address] [place] [address] Dr. Rose Marie RoblesImmunoglobulin G, Qn, Cwkem1256 mg/mLBclsst769-5624Cuc [facility] on above:Performed By: #### IGGSB #### [facility] [address] [place] [address] Dr. Rose Marie RoblesALDOLASEon 24-31-3958Hqkklibf3.1 U/LCritically low3.3-10.3The [facility] HospitalComment on above:Performed By: #### ALDOLAS #### [facility] [address] [place] [address] Dr. Rose Marie RoblesC3 and C4 COMPLEMENTon 77-95-0995Jtmkybdihv C3, Tedmz863 mg/dL Uqwuic42-499Rxh [facility] HospitalComment on above:Performed By: #### CSUITE ####[facility] [address] [address]Dr. Rose Marie Rosenbergplement C4, Serum15 mg/eQXytphf72-26Aob [facility] HospitalComment on above:Performed By: #### CSUITE ####[facility] [address] [address]Dr. Rose Marie RosenbergPLEMENT TOTAL (CH50)on 22-30-9694Intocjqswx, Total (CH50)53 U/mLNormal>41The [facility] HospitalComment on above:Result Comment: Age Male Female 1 - 30 [...] table above to determine out of range values.Performed By: #### CH50T #### [facility] [address] [place] [address] Dr. Rose Marie MoffettTIS PANEL, ACUTEon 29-93-5353NPgSi ScreenNegativeNormal NegativeThe [facility] HospitalComment on above:Performed By: #### HEPACUT #### [facility] [address] [place] [address] Dr. Rose Marie RoblesHCV AB<0.8Ogjmlr7.0-0.9The [facility] HospitalComment on above: Performed By: #### HEPACUT #### [facility] [address] [place] [address] Dr. Rose Marie Jaramillo Ab, IgMNegativeNormalNegativeThe [facility] HospitalComment on above:Performed By: #### HEPACUT #### [facility] [address] [place] [address] Dr. Rose Marie Falcon Core Ab, IgMNegativeNormalNegativeThe [facility] Comment on above:Performed By: #### HEPACUT #### [facility] [address] [place] [address] Dr. Rose Marie RoblesInterpretation:CommentWright-Patterson Medical Center on above:Result Comment: Negative Not infected with HCV, unless recent infection is suspected or other evidence exists to indicate HCV infection.Performed By: #### HEPACUT #### [facility] [address] [place], [place] [address] Dr. Rose Marie RoblesIMMUNOGLOBULIN IGA QUANTITIAVEon 71-15-9995Gcbpbqlxfvwteh A, Qn, Exaue047 mg/tQOdsukn17-318Srh [facility] on above:Performed By: #### IMIGAQN #### [facility] [address] [place], [place] [address] Dr. Rose Marie RoblesIMMUNOGLOBULIN IGM QUANTITATIVEon 73-82-7903Csaispxgeryabt M, Qn, Bdxqj409 mg/mWBdilvc22-862Ewb [facility] on above:Performed By: #### IMIGMQN ####[facility] [address] [place], [place] [address]LuDr. Rose Marie RoblesCT CHEST WO CONon 64-62-2490KN CHEST WO CONEXAMINATION: CT CHEST WO CON HISTORY: Lung field abnormal ; [...] Electronically authenticated by: VALENCIA KEMP Date: 2021-12-26 21:30[facility] SystemURINALYSISon 1987Jlthhsaumd (U)CLEARNormalCLEARAncora Psychiatric HospitalComment on above:Performed By: #### UA #### [facility] [address] [place], [place] [address]Joijrlalu Ql (U)NegativeNormalNEGATIVEAncora Psychiatric HospitalComment on above:Performed By: #### UA #### [facility] [address] [place], [place] [address]Sgwqc (U)YELLOWNormalSTRAW,YELLOWAncora Psychiatric Hospital Comment on above:Performed By: #### UA #### [facility] [address] [place], [place] [address]Ftyttik Ql (U)NegativeNormalNEGATIVEAncora Psychiatric HospitalComment on above:Performed By: #### UA #### [facility] [address] [place], [place] [address]Ibgpyyhjij Ql (U)NegativeNormalNEGATIVEAncora Psychiatric HospitalComment on above:Performed By: #### UA #### [facility] [address] [place], [place] [address]Aiktodj Ql (U)5 (TRACE)AbnormalNEGATIVEAncora Psychiatric HospitalComment on above:Performed By: #### UA #### [facility] [address] [place], [place] [address]Ejsbuntuo esterase Test strip Ql (U)NegativeNormalNEGATIVEAncora Psychiatric HospitalComment on above:Performed By: #### UA #### [place] [address] [place], [place] [address]Okwfzoi Ql (U)NegativeNormalNEGATIVEAncora Psychiatric HospitalComment on above:Performed By: #### UA #### [facility] [address] [place], [place] [address]iF (U)6.0 [pH]Normal5.0 - 8.0[facility] Comment on above:Performed By: #### UA #### [facility] [address] [place], [place] [address]Scacvss Ql (U)NegativeNormalNEGATIVEAncora Psychiatric HospitalComment on above:Performed By: #### UA #### [facility] [address] [place], [place] [address]Qqartifr gravity (U) [Rel density]1.940Dbiepx1.005 - 1.035[facility] Psychiatric HospitalComment on above:Performed By: #### UA #### [facility] [address] [place], [place] [address]Clnvlrungkyc (U) [Mass/Vol]mg/dLNormal0.0 - 1.9[facility] HospitalComment on above:Performed By: #### UA #### [facility] [address] 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 Her pulm wants to r/o GPA. However, pt has clear sinus and pulm CTs. She does nothave hypereosinophilia, although she does have mild asthma. [...] my other sx - her feet and handsalways seem like they are submerged in ice [...] I know it's not good to take Iusually curl up with a heating pad or hot bath to relax She gen sleeps well 7 hrs and wakes at least 1x for BR. She is achy when she gets OOB I sound like a rice krispie treat She used to run, butthis made her knees hurt. She uses an [...] PM Current Meds Medi (more content not included)...NormalUH TouchworksUrinalysison 07-11-2021 Color (U)YELLOWSee BelowFirstHealth 150 Work Phone: Comment on above:Reference Range: STRAW,YELLOWGlucose Ql (U)NegativeNEGATIVEFirstHealth 150 Work Phone: Ketones Ql (U)5 (TRACE)AbnormalNEGATIVEMP-[facility] 150 Work Phone: Leukocyte esterase Test strip Ql (U)NegativeNEGATIVE MP-[facility] 150 Work Phone: pH (U)6.0 [pH]5.0 - 8.0MP-[facility] 150 Work Phone: Protein (U) [Mass/Vol]NegativeNEGATIVEMP-[facility] 150 Work Phone: RBC (U) [#/Vol]NegativeNEGATIVE-[facility] 150 Work Phone: Specific gravity (U) [Rel density]1.020 1See Below- [facility] 150 Work Phone: Comment on above:Reference Range: 1.005 - 1.035 UrinalysisNegativeNEGATIVEMP-[facility] 150 Work Phone: Urinalysis<2.00.0 - 1.9MP-[facility] 150 Work Phone: [phone]-FhqmgrwnuE[facility] 150 Work Phone: CNPNon [phone] (RHEUMN) CHRYSTAL TERAN ([id number]) 1985 F Date Time Provider Department 05/01/21 QUINN LEVINN During your visit today, we recorded the following information about you: Sonya Jaquez Ma 05/01/2021 3:[address] Zhu, The patient is calling for her next treatment steps. Please call her at [phone] (home) Thank you Quinn Garza MD 05/02/2021 [...] Fully Assessed Reason for Visit: Patient Question [7647] Prescriptions as of 05/02/2021 - Biotin 10,000 mcg cap - cholecalciferol (VITAMIN D-3) 5,000 unit tab - Cyanocobalamin 2,000 mcg TbER Take 1 tablet by mouth once daily. - BREO ELLIPTA 200-25 mcg/dose inhaler - ibuprofen (MOTRIN) 600 mg tablet 600 mg. - Lacto no.76/Bifido/FOS/larch (WOMEN'S PROBIOTIC ORAL) - Norethindrone Acet-Ethinyl Est 1-20 mg-mcg per tablet - ewncc-8u-vmm-epa-fish oil 600-1,200 mg cap - multivitamin (MULTIPLE VITAMIN ORAL) Take 1 tablet by mouth once daily. - TURMERIC ORAL - MULTIVITAMIN TAB Take one(1) tablet daily. Problem List As Of Date 05/01/2021 Noted Resolved Anemia [D64.9] 01/03/2009 Encounter Status:Closed by QUINN LEVIN on 05/02/21NoShelby [facility] HospitalCNPNon [id number] (RHEUMN) CHRYSTAL TERAN ([id number]) 1985 F Date Time Provider Department 04/27/21 [...] Acet-Ethinyl Est 1-20 mg-mcg per tablet - ncoyt-8h-frq-epa-fish oil 600-1,200 mg cap - multivitamin (MULTIPLE VITAMIN ORAL) Take 1 tablet by mouth once daily. - TURMERIC ORAL - MULTIVITAMIN TAB Take one(1) tablet daily. Problem List As Of Date 04/27/2021 Noted Resolved Anemia [D64.9] 01/03/2009 Encounter Status:Closed by MIREILLE MARX on 04/27/21[facility]RADHAPNTelephone (RHEUMN) CHRYSTAL TERAN ([id number]) 1985 F Date Time Provider Department 04/27/21 QUINN LEVIN During your visit today, we recorded the following information about you: Mireille Sung 04/27/2021 8:28 AM Signed Patient has been identified by name and date of : Yes . Patient calling for :results. Patient was calling to discuss her CT results (scanned into Interventional Imaging) Pharmacy has been updated: Yes . [facility] Return call needed: Patient is expecting a call back. Can be reached at phone number listed below.. Patient can be reached at : [phone] Allergies As of Date: 04/27/2021 (No Known [...] Acet-Ethinyl Est 1-20 mg-mcg per tablet - tixxj-2c-hoo-epa-fish oil 600-1,200 mg cap - multivitamin (MULTIPLE VITAMIN ORAL) Take 1 tablet by mouth once daily. - TURMERIC ORAL - MULTIVITAMIN TAB Take one(1) tablet daily. Problem List As Of Date 04/27/2021 Noted Resolved Anemia [D64.9] 01/03/2009 Encounter Status:Closed by MIREILLE MARX on 05/24/21[facility] CHEST WO CONon [id number] CHEST WO CONCT CHEST WITHOUT CONTRAST CLINICAL: Immunoglobulin level -patient [...] Electronically authenticated by: SHIVANI KENDRICK Date: 2021-04-15 11:[address] [place] [address] SINUSES WO CONon [id number] SINUSES WO CONCT SINUS WITHOUT CONTRAST COMPARISON: Head CT 12/26/2020 [...] Electronically authenticated by: ANDRE RED Date: 2021-04-15 15:19[facility] SystemAnti-Neutro.Cyto.Abon [id number] InterpretationPositive for P-ANCA pattern by confirmatory indirect immunofluorescence and by multiplex flow immunoassay for Myeloperoxidase. Clinical correlation is required.Normal [facility] HospitalComment on above:Performed By: #### TSH, CBCDIF, WSR, CANBLL, PANBLL, CMP, CRP, ANCA #### [place] [address] I-ANCA FluorescenceNegativeNormalNegativeHarrison Community Hospital Comment on above:Performed By: #### TSH, CBCDIF, WSR, CANBLL, PANBLL, CMP, CRP, ANCA #### [place] [address] Yhnhuiwpyyvocsc Ab>8.0High<1.0[facility] HospitalComment on above:Performed By: #### TSH, CBCDIF, WSR, CANBLL, PANBLL, CMP, CRP, ANCA #### [place] [address] Y-ANCA FluorescencePositiveCritically abnormalNegativeCleMagruder HospitalComment on above:Performed By: #### TSH, CBCDIF, WSR, CANBLL, PANBLL, CMP, CRP, ANCA #### [place] [address] Vmvvuhqfeo-3 Ab<0.2Normal<1.0[facility] on above:Performed By: #### TSH, CBCDIF, WSR, CANBLL, PANBLL, CMP, CRP, ANCA #### [address], [place] [id number] [phone] ReviewReviewed by Felix Pradhan, Ph.D, D([facility])Normal [facility] on above:Performed By: #### TSH, CBCDIF, WSR, CANBLL, PANBLL, CMP, CRP, ANCA #### [place] [address] X-Reactive Proteinon [id number] [Mass/Vol]mg/LNormal<0.9CMercy Health Willard Hospital on above:Performed By: #### TSH, CBCDIF, WSR, CANBLL, PANBLL, CMP, CRP, ANCA #### [place] [address] JUATA Reflexon [id number] ReflexBilled for services performed NormalOhio State Health System on above:Performed By: #### TSH, CBCDIF, WSR, CANBLL, PANBLL, CMP, CRP, ANCA #### [place] [address] SCM and Differentialon 63-86-2113Fzu Baso0.05 k/uLNormal<0.11 [facility] on above:Performed By: #### TSH, CBCDIF, WSR, CANBLL, PANBLL, CMP, CRP, ANCA #### [place] [address] Llr Eosin<0.03Normal<0.46[facility] on above: Performed By: #### TSH, CBCDIF, WSR, CANBLL, PANBLL, CMP, CRP, ANCA #### [place] [address] Wwo Mono0.44 k/uLNormal<0.87[facility] on above:Performed By: #### TSH, CBCDIF, WSR, CANBLL, PANBLL, CMP, CRP, ANCA #### [place] [address] Xet Neut4.28 k/uLNormal1.45-7.50White Hospitalment on above:Performed By: #### TSH, CBCDIF, WSR, CANBLL, PANBLL, CMP, CRP, ANCA #### [place] [address] Znugguvy nRBC<0.01Normal<0.01[facility] on above:Performed By: #### TSH, CBCDIF, WSR, CANBLL, PANBLL, CMP, CRP, ANCA #### [place] [address] Acgzpgzba/100 WBC (Bld)0.8 %NormalOhio State Health System on above:Performed By: #### TSH, CBCDIF, WSR, CANBLL, PANBLL, CMP, CRP, ANCA #### [place] [address] UNKNITydu DiffNormalCMercy Health Willard Hospital on above: Performed By: #### TSH, CBCDIF, WSR, CANBLL, PANBLL, CMP, CRP, ANCA #### [place] [address] Qhjycsziwuo/100 WBC (Bld)0.2 %NormalHarrison Community Hospital Comment on above:Performed By: #### TSH, CBCDIF, WSR, CANBLL, PANBLL, CMP, CRP, ANCA #### [place] [address] Eqbawstobmj distribution width (RBC) [Ratio]12.8 %Lyqcxp17.5-15.0 [facility] on above:Performed By: #### TSH, CBCDIF, WSR, CANBLL, PANBLL, CMP, CRP, ANCA #### [place] [address] [place] [address] Ibnwwnmfij (Bld) [Volume fraction]45.3 %Ejmbcp43.0-46.0[facility] on above:Performed By: #### TSH, CBCDIF, WSR, CANBLL, PANBLL, CMP, CRP, ANCA #### [place] [address] Ssyvbzejsq (Bld) [Mass/Vol]13.8 g/yUSozxbr71.5-15.5CMarymount Hospitalment on above:Performed By: #### TSH, CBCDIF, WSR, CANBLL, PANBLL, CMP, CRP, ANCA #### [place] [address] Jplnnhluvbe (Bld) [#/Vol]1.84 10*3/uLNormal1.00-4.00[facility] on above:Performed By: #### TSH, CBCDIF, WSR, CANBLL, PANBLL, CMP, CRP, ANCA #### [place] [address] Sxmiumdcqxb/100 WBC (Bld)27.7 %NormalHarrison Community Hospital Comment on above:Performed By: #### TSH, CBCDIF, WSR, CANBLL, PANBLL, CMP, CRP, ANCA #### [place] [address] UTH55.9 sTGacadr31.0-34.0[facility] on above: Performed By: #### TSH, CBCDIF, WSR, CANBLL, PANBLL, CMP, CRP, ANCA #### [place] [address] MEHS (RBC) [Mass/Vol]30.5 g/zACsiyvc93.5-36.0[facility] on above:Performed By: #### TSH, CBCDIF, WSR, CANBLL, PANBLL, CMP, CRP, ANCA #### [place] [address] SRA (RBC) [Entitic vol]91.5 nTHdposn73.0-100.0[facility] on above:Performed By: #### TSH, CBCDIF, WSR, CANBLL, PANBLL, CMP, CRP, ANCA #### [place] [address] Jxqeftmzv/100 WBC (Bld)6.6 %NormalOhio State Health System on above:Performed By: #### TSH, CBCDIF, WSR, CANBLL, PANBLL, CMP, CRP, ANCA #### [place] [address] Ydxrcvzftsx/100 WBC (Bld)64.7 %NormalHarrison Community Hospital Comment on above:Performed By: #### TSH, CBCDIF, WSR, CANBLL, PANBLL, CMP, CRP, ANCA #### [place] [address] OJDQz7.0 /100 MMXPdxxje8VhlxwuasoOhio State Health System on above: Performed By: #### TSH, CBCDIF, WSR, CANBLL, PANBLL, CMP, CRP, ANCA #### [place] [address] [place] [address] Nsjpollk mean volume (Bld) [Entitic vol]9.6 fLNormal9.0-12.7 [facility] on above:Performed By: #### TSH, CBCDIF, WSR, CANBLL, PANBLL, CMP, CRP, ANCA #### [place] [address] Oyqvglwqd (Bld) [#/Vol]426 10*3/oMCbwk186-578BsbdqemubOhio State Health System on above:Performed By: #### TSH, CBCDIF, WSR, CANBLL, PANBLL, CMP, CRP, ANCA #### [facility] [address] [place] [address] HGX (Bld) [#/Vol]4.95 10*6/uLNormal3.90-5.20[facility] on above:Performed By: #### TSH, CBCDIF, WSR, CANBLL, PANBLL, CMP, CRP, ANCA #### [facility] [place] [address] ZRU (Bld) [#/Vol]6.64 10*3/uLNormal3.70-11.00[facility] on above:Performed By: #### TSH, CBCDIF, WSR, CANBLL, PANBLL, CMP, CRP, ANCA #### [facility] [place] [address] XENUeo [id number] Visit (RHEUMN) JEFFRYCHRYSTAL ([id number]) 1985 F Date Time Provider Department 04/07/21 8:00 AM QUINN LEVIN During your visit today, we recorded the following information about you: Temperature Pulse Blood pressure Weight 99 degrees 89/minute 116/69 61.7 kg Height 1.575 m Quinn Garza MD 04/11/2021 2:42 PM Signed Chrystal Teran is a 35 year old female. Consultation was requested by Dr. Hewitt (transcription) for an opinion regarding possible ANCA-vasculitis; my [...] to pulmonology. 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 Metabolic Panelon 01-02-8784Nrydsbv [Mass/Vol]4.3 g/dLNormal 3.9-4.9CMercy Health Willard Hospital on above:Performed By: #### TSH, CBCDIF, WSR, CANBLL, PANBLL, CMP, CRP, ANCA #### [place] [address] [place], [place] [address] EGZ [Catalytic activity/Vol]58 U/ACmmdku88-723CkbcgqmubHarrison Community HospitalComment on above:Performed By: #### TSH, CBCDIF, WSR, CANBLL, PANBLL, CMP, CRP, ANCA #### [place] [address] [place] [address] PRG [Catalytic activity/Vol]21 U/LNormal7-38[facility] on above:Performed By: #### TSH, CBCDIF, WSR, CANBLL, PANBLL, CMP, CRP, ANCA #### [place] [address] [place], [place] [address] Hdgjn gap [Moles/Vol]11 mmol/LNormal9-18[facility] Comment on above:Performed By: #### TSH, CBCDIF, WSR, CANBLL, PANBLL, CMP, CRP, ANCA #### [place] [address] VSC [Catalytic activity/Vol]27 U/QAbmxuv52-46EpzgdjxylOhio State Health System on above:Performed By: #### TSH, CBCDIF, WSR, CANBLL, PANBLL, CMP, CRP, ANCA #### [place] [address] [place] [id number] Qtvqsialp [Mass/Vol]0.2 mg/dLNormal0.2-1.3CSelect [facility] Comment on above:Performed By: #### TSH, CBCDIF, WSR, CANBLL, PANBLL, CMP, CRP, ANCA #### [place] [address] [place] [address] Bddkogw [Mass/Vol]9.3 mg/dLNormal8.5-10.2CSelect [facility]ty [facility] Comment on above:Performed By: #### TSH, CBCDIF, WSR, CANBLL, PANBLL, CMP, CRP, ANCA #### [place] [address] Cuorspwm [Moles/Vol]106 mmol/PDkkh47-609FblnpleshHarrison Community Hospital Comment on above:Performed By: #### TSH, CBCDIF, WSR, CANBLL, PANBLL, CMP, CRP, ANCA #### [place] [address] PK5 [Moles/Vol]24 mmol/IPoyokt62-26TwsbmwxdiHarrison Community HospitalComment on above:Performed By: #### TSH, CBCDIF, WSR, CANBLL, PANBLL, CMP, CRP, ANCA #### [place] [address] Mmhtrakqgl [Mass/Vol]0.75 mg/dLNormal0.58-0.96[facility] HospitalComment on above:Performed By: #### TSH, CBCDIF, WSR, CANBLL, PANBLL, CMP, CRP, ANCA #### [place] [address] hQXF- Amer.>60NormalCleveland Formerly [facility], [facility]idant North HospitalComment on above:Performed By: #### TSH, CBCDIF, WSR, CANBLL, PANBLL, CMP, CRP, ANCA #### [place] [address] nHMA-All Other Races>60NormalClevelNovant Health Thomasville Medical CenterComment on above:Result Comment: eGFR (Estimated GFR) Units of measure: [...] visit the National Kidney Foundation website at kidney.org/professiona ls/kdoqi/gfr_calculator.Performed By: #### TSH, CBCDIF, WSR, CANBLL, PANBLL, CMP, CRP, ANCA #### [facility] [address] [place], [place] [address] Xryofcy [Mass/Vol]96 mg/zYJblpea25-07GsiipyujrHarrison Community Hospital Comment on above:Result Comment: The [place] Diabetes Association (ADA) provides guidance for cutoff [...] Standards of Medical Care in Diabetes 2016, [place] Diabetes Association. Diabetes Care. 2016.39(Suppl 1).Performed By: #### TSH, CBCDIF, WSR, CANBLL, PANBLL, CMP, CRP, ANCA #### [facility] [address] [place], [place] [id number] [phone] [Moles/Vol]4.1 mmol/LNormal3.7-5.1CSelect Medical Specialty Hospital - [facility] NorthComment on above:Performed By: #### TSH, CBCDIF, WSR, CANBLL, PANBLL, CMP, CRP, ANCA #### [facility] [address] [place], [place] [address] Ptnsiey [Mass/Vol]7.1 g/dLNormal6.3-8.0[facility] Comment on above:Performed By: #### TSH, CBCDIF, WSR, CANBLL, PANBLL, CMP, CRP, ANCA #### [place] [address] Mqnmez [Moles/Vol]141 mmol/LLmwzey018-220JlxrhnidxHarrison Community Hospital Comment on above:Performed By: #### TSH, CBCDIF, WSR, CANBLL, PANBLL, CMP, CRP, ANCA #### [place] [address] Crus nitrogen [Mass/Vol]11 mg/dLNormal7-21[facility] Comment on above:Performed By: #### TSH, CBCDIF, WSR, CANBLL, PANBLL, CMP, CRP, ANCA #### [place] [address] KAESR Reflexon [id number] ReflexBilled for services performed NormalOhio State Health System on above:Performed By: #### TSH, CBCDIF, WSR, CANBLL, PANBLL, CMP, CRP, ANCA #### [place] [address] Voe Rate Westergrenon 55-30-3389Xfx Rate Westergren2 mm/hrNormal0-20 [facility] on above:Performed By: #### TSH, CBCDIF, WSR, CANBLL, PANBLL, CMP, CRP, ANCA #### [place] [address] DGGdu 47-55-3679JQM Qn1.770 m[IU]/LNormal0.270-4.200[facility] on above:Result Comment: If the patient is , TSH reference range varies by gestational period: First Trimester (weeks 9-12): 0.180-2.990 mcIU/mL Second Trimester: 0.110-3.980 mcIU/mL Third Trimester: 0.480-4.710 mcIU/mL Garcia Stuart et al. A Practical Approach for the Verifications and Determination of Site- and Trimester-Specific Reference Intervals for Thyroid Function tests in . Thyroid, 2019:29:3:412-420.Juan Perez, et al. 2017 Guidelines of the [place] Thyroid Association for the Diagnosis and Management of Thyroid Disease during and the . Thyroid, 2017:27:3:315-389. Performed By: #### TSH, CBCDIF, WSR, CANBLL, PANBLL, CMP, CRP, ANCA #### [facility] [address] [place] [address] YOTXfs 58-53-1800XNYXBeyggelmj (RHEUMN) CHRYSTAL TERAN ([id number]) 1985 F Date Time Provider Department 04/04/21 QUINN LEVIN During your visit today, we recorded the following information about you: Mireille Sung 04/04/2021 12:18 PM Signed Records received from Dr. Hewitt at [place] for upcoming appt w/ Dr. Frandy Garza [...] 01/03/2009 Encounter Status:Closed by MIREILLE MARX on 04/04/21NoShelby Memorial HospitalCNPNon [id number] (ORQ) CHRYSTAL TERAN ([id number]) 1985 F Date Time Provider Department 02/22/21 LILI PRECIADO During your visit today, we recorded the following information about you: Nayla Irwin 02/22/2021 8:47 AM Signed Per message waitlist leave detailed VM rfv GPA (Granulomatosis with Polyangiitis) LAYO NEW VASCULITIS [6564] All patients must be scheduled within 5 [...] 01/03/2009 Encounter Status:Closed by FARTUN HENNING on 03/01/21NoShelby Memorial Hospital Vital Signs Date TimeVital SignValuePerforming ZrhtqynekUuigqtir40-50-9985 15:35-0500Body mass index (BMI) [Ratio]25.2 kg/a2Rktxsrsussy Marr DO Work Phone: [employer] TechnologyTbbesoubtz71-42-4054 15:35-0500Body qzfiyn97.51 kgSasussy Marr DO Work Phone: [employer] TechnologyTvhrjawrdi93-30-0262 15:35-0500Diastolic blood vzmeoini35 mm[Hg]Fatou Marr DO Work Phone: [facility] InstitutePevqizkhgs78-99-7090 15:35-0500Heart rate77 /min Fatou Marr DO Work Phone: [facility] InstituteOeldygxbjk32-01-5586 15:35-5541NrM2% (BldA) [Mass fraction]98 %Fatou Marr DO Work Phone: [facility] InstituteNvabujkcqb13-24-5281 15:35-0500Systolic blood mm[Hg]Fatou Marr DO Work Phone: [facility] InstituteKtpnmefupr32-70-0830 15:48-0400Body mass index (BMI) [Ratio]24.87 kg/i4Btrncnxpstuart Thomas DO Work Phone: [facility] InstituteIlpghrdbny61-57-6085 15:48-0400Body .69 kgKatstuart Thomas DO Work Phone: [facility] InstituteFadnsrgdui75-93-7961 15:48-0400Diastolic blood mm[Hg]May Thomas DO Work Phone: [facility] InstituteYtnmlawuxv90-95-9864 15:48-0400Systolic blood pikyijcr110 mm[Hg]May Thomas DO Work Phone: [facility] InstituteGwgecfoypu96-23-0893 09:48-0400Body mass index (BMI) [Ratio]23.65 kg/m2Tayla Mazariegos MD, PhD Work Phone: [facility]07-10-2024 09:48-0400Body iusslsdfmjc17.6 [degF]Tayla Mazariegos MD, PhD Work Phone: [facility]07-10-2024 09:48-0400Body vyygox22.65 kgTayla Mazariegos MD, PhD Work Phone: [phone]07-10-2024 09:48-0400 Diastolic blood zivljkrc75 mm[Hg]Tayla Mazariegos MD, PhD Work Phone: 1(286)[address] [place], [place] [address]007-10-2024 09:48-0400Heart yhms128 /minTayla Mazariegos MD, PhD Work Phone: 1(114)[address] [place], [place] 1367307-10-2024 09:48-0400Systolic blood icmikuic025 mm[Hg]Tayla Mazariegos MD, PhD Work Phone: 1(421)[address] [place], [place] 1367306-16-2024 10:46-0400Body hocfsrxlmtq75.81 [degF]Bebeto MCFADDEN Work Phone: 1(229)[address] [place], [place] 1367306-16-2024 10:46-0400 Diastolic blood huwbaegc88 mm[Hg]Bebeto MCFADDEN Work Phone: 1(680)[address] [place], [place] 1367306-16-2024 10:46-0400Heart rate76 /minNavdanjelp Tacos MCFADDEN Work Phone: 1(647)[address] [place], [place] 1367306-16-2024 10:46-0400 Respiratory rate12 /minBebeto MCFADDEN Work Phone: 1(721)[address] [place], [place] 1367306-16-2024 10:46-2470WuU9% (BldA) [Mass fraction]97 %Bebeto MCFADDEN Work Phone: 1(305)[address] [place], [place] 1367306-16-2024 10:46-0400Systolic blood azyzeblr709 mm[Hg]Bebeto MCFADDEN Work Phone: 1(172)[address] [place], [place] 1367306-14-2024 07:42-0400Body zxogyj137.5 cmBebeto MCFADDEN Work Phone: 1(783)[address] [place], [place] 1367306-14-2024 07:42-0400Body mass index (BMI) [Ratio]23.59 kg/w5JkkeuinBebeto MCFADDEN Work Phone: 1(925)[address] [place], [place] 136[address]306-14-2024 07:42-0400Body ytqqdo58.51 kgBebeto MCFADDEN Work Phone: [facility]06-03-2024 09:00-0400 Diastolic blood xozdnaqp89 mm[Hg][facility]06-03-2024 09:00-0400Systolic blood nbiqtokl893 mm[Hg][facility]06-03-2024 08:56-0400Body mass index (BMI) [Ratio]23.92 kg/z7Mobpnx Pre Op Donor [facility]06-03-2024 08:56-0400Body uknvkagsgyr06.49 [degF][facility]06-03-2024 08:56-0400Body epafbo90.33 kgK[facility]06-03-2024 08:56-0400Heart gbah298 /minK[facility] Medical Center [facility]04-15-2024 17:10-0400Diastolic blood voxgknit17 mm[Hg]Tayla Mazariegos MD, PhD Work Phone: 1(184)[address]04-15-2024 17:10-0400Systolic blood mm[Hg]Tayla Mazariegos MD, PhD Work Phone: 1(308)[address]04-01-2024 08:28-0400 Diastolic blood oslaarfv94 mm[Hg]Mir Bagley MD Work Phone: 1(445)[address]04-01-2024 08:28-0400Heart rate95 /minMir Bagley MD Work Phone: 1(447)[address]04-01-2024 08:28-0400Systolic blood roinroxz849 mm[Hg]Mir Bagely MD Work Phone: 1(536)[address]04-01-2024 08:27-0400Body ycysxy425.5 Enmanuel Bagley MD Work Phone: 1(304)[address]04-01-2024 08:27-0400Body mass index (BMI) [Ratio]24.66 kg/m2Mir Bagley MD Work Phone: 1(623)[address] [place], [place] 1367304-01-2024 08:27-0400Body epgohparzwq25.2 [degF]Mir Bagley MD Work Phone: 1(193)[address] [place], [place] 1367304-01-2024 08:27-0400Body oezknx53.15 kgMir Bagley MD Work Phone: 1(436)[address] [place], [place] 1367304-01-2024 07:28-0400 Diastolic blood mm[Hg]Tayla Mazariegos MD, PhD Work Phone: 1(835)[address] [place], [place] 1367304-01-2024 07:28-0400Heart baoa074 /minTayla Mazariegos MD, PhD Work Phone: 1(137)[address] [place], [place] 136[address]304-01-2024 07:28-0400Systolic blood sugefbbe401 mm[Hg]Tayla Mazariegos MD, PhD Work Phone: 1(258)[address] [place], [place] 1367304-01-2024 07:25-0400Body kwidjp872.5 Jordin Mazariegos MD, PhD Work Phone: 1(632)[address] [place], [place] 1367304-01-2024 07:25-0400Body mass index (BMI) [Ratio]24.66 kg/m2Tayla Mazariegos MD, PhD Work Phone: 1(785)[address] [place], [place] 136[address]304-01-2024 07:25-0400Body ftetbnrsipa32.2 [degF]Tayla Mazariegos MD, PhD Work Phone: 1(960)[address] [place], [place] 1367304-01-2024 07:25-0400Body ptehzn81.15 kgTayla Mazariegos MD, PhD Work Phone: 1(753)[address] [place], [place] 136[address]305-03-2022 16:08-0400 Diastolic blood hmpavqcp04 mm[Hg]Tonia Morin Work Phone: m887-2896AJ-XpudoxG[facility]ano [facility] Work Phone: 1(284) 898-476505-03-2022 16:08-0400Systolic blood yfghgjvh009 mm[Hg] Tonia Morin Work Phone: mp247-2735KC-SstmcsGolisano [facility] Work Phone: 1(179) 302-663805-03-2022 15:57-0400Body obdvmr971.48 Kaycee Morin Work Phone: mp593-0425BX-EtakfcGolisano [facility] Work Phone: 1(262) 852-582905-03-2022 15:57-0400Body mass index (BMI) [Ratio] 24.51 kg/y2TnustpfTonia Morin Work Phone: mp722-9209CC-PqzseyGolisano [facility] Work Phone: 1(415) 886-403405-03-2022 15:57-0400Body surface area Derived from formula1.61 l2TlocskyTonia Morin Work Phone: mp112-3471KC-GydtiuGolisano [facility] Work Phone: 1(662) 867-504205-03-2022 15:57-0400Body pnlelt00.78 kgTonia Morin Work Phone: mp809-8079OR-EhisxkGolisano [facility] Work Phone: 1(429) 545-819412-21-2021 16:00-0500Body .48 Kaycee Morin Other [employer] Other 12-21-2021 16:00-0500Body mass index (BMI) [Ratio] 24.43 kg/l4PznevgsTonia Morin Other [employer] Other 12-21-2021 16:00-0500Body jwkcomihvry08.8 [degF] Tonia Morin Other [employer] Other 12-21-2021 16:00-0500Body swgebj79.6 kgRoxanne Morin Other [place] [facility] Other 12-21-2021 16:00-0500Diastolic blood yoxxsutd00 mm[Hg] Tonia Morin Other [facility] [employer] Other 12-21-2021 16:00-0500Respiratory rate18 /minTonia Morin Other [place] [facility] Other 12-21-2021 16:00-5893StU5% (BldA) [Mass fraction]98 % Tonia Morin Other [place] [employer] [facility] Other 12-21-2021 16:00-0500Systolic blood ctzvooum694 mm[Hg] Tonia Morin Other [place] [employer] [facility] Other Encounters Encounter DateEncounter Type[facility] ProviderFacilityStart: 11-20-2024 End: 61-00-8193Hdgfojhr ReferredWes Bowser DO-[facility] [address] Work Phone: start: 11-20-2024 End: 08-22-9988ipsnjxdzowAihkkcm B Rogers DO Work Phone: [facility] Work Phone: Start: 07-09-2024 End: 94-99-0087Mbtrdm Jeffrey Fowler DPM Work Phone: [facility] PODIATRYStart: 07-09-2024 End: 23-47-2395Uruhkz Jeffrey Fowler DPM Work Phone: [facility] PODIATRYStart: 07-09-2024 End: 45-14-8956Mjdtub follow up visit related to original Alice KOHLERM Work Phone: [facility] PODIATRYComment on above:Mechanical complication associated with orthopedic device, initial encounter (Primary Dx); Left foot pain; Surgery follow-up examinationStart: 07-09-2024 End: 72-97-7074jabkopjietAQDKHLNIO H SMITHNot AvailableStart: 07-02-2024 End: 17-58-6675Npeqfo flowsheetAfshanneo Fowler DPM Work Phone: [facility] PODIATRYStart: 07-02-2024 End: 15-12-2741Aictjv flowsheetAfshanneo Fowler DPM Work Phone: [facility] PODIATRYStart: 07-02-2024 End: 27-77-9363Myyhjhn encounter procedureCasharneo Fowler DPM Work Phone: [facility] PODIATRYComment on above:Mechanical complication associated with orthopedic device, initial encounter (Primary Dx); Left foot painStart: 07-02-2024 End: 95-63-6121wemheaolooEPIPGUMNS H SMITHNot AvailableStart: 06-02-2024 End: 61-21-9843Jgkpjx outpatient new 30 minutesCasharneo Fowler DPM Work Phone: [facility] PODIATRYComment on above:Mechanical complication associated with orthopedic device, initial encounter ([facility]) (Primary Dx); Left foot painStart: 06-02-2024 End: 05-14-5253piglcckicuFADHODTUK H SMITHNot AvailableStart: 02-25-2024 End: 82-71-1129Rjnxrrb encounter statusSasussy Marr DO Work Phone: [facility] Work Phone: Start: 02-25-2024 End: 93-09-2970Ezeiyjzb preventive med est patient 18-39 yrsSandra Nakul Alarcon DO Work Phone: noms [facility] IMComment on above:Encounter for preventative adult health care examination (Primary Dx); Influenza vaccination declined; Kidney donorStart: 02-25-2024 End: 88-02-1201dhveivdrqcQETQWP D CHRISTOPHER-EMERYNot AvailableStart: 01-09-2024 End: 74-72-5621Nyytjzd encounter statusMay Thomas DO Work Phone: noms HealthcareStart: 01-09-2024 End: 53-85-7906Alzvoled preventive med est patient 18-39 yrsKathlmartinez E William DO Work Phone: noms SWS OBComment on above:Encounter for gynecological examination without abnormal finding; Screening for malignant neoplasm of cervix; Encounter for surveillance of contraceptive pillsStart: 01-09-2024 End: 05-06-5691asuqnvdrbeTFBYIDSL E RINKESNot AvailableStart: 09-18-2023 End: 60-27-8018Wqqpoy follow up visit related to original Nino Mazariegos MD, PhD Work Phone: [facility] Transplant [facility] InstituteComment on above:Donor, kidney (Primary Dx)Start: 57-23-3884ipqhawwjcc SELF SELFFacility:[facility]ITALtart: 08-23-2023 End: 68-68-1445Jqhykwgyns and management of inpatientNavdeep Tacos MCFADDEN Work Phone: [phone] on above:Kidney donorStart: 08-12-2023 ambulatorySANDRA CHRISTOPHER-EMERYFacility:[facility]tart: 08-12-2023 End: 44-15-8198Gsinwvands hospital visit by Guerrero Mazariegos MD, PhD Work Phone: Imaging DoanComment on above:ArrivedStart: 08-12-2023 End: 41-87-8604Ezltqajq Support EncounterOscentral islip [facility] Pre Op Donor ClinicCompresbyterian [facility] Trans[facility] InstituteComment on above:Kidney donor (Primary Dx)Start: 52-09-6047knzlksomljTGTIQX WEAVER-EMERYFacility:[facility]tart: 06-24-2023 End: 43-01-1437Sqmftdhkhw hospital visit by Guerrero Mazariegos MD, PhD Work Phone: Imaging [facility] Outpatient CareComment on above:ArrivedStart: 06-10-2023 End: 77-18-7670Tjpvpl outpatient new 60 minutesMir Bagley MD Work Phone: [facility] Transplant [facility] Medical CenterComment on above:Kidney living donor evaluation, pre-op (Primary Dx); Kidney donorStart: 06-10-2023 End: 71-34-6937Dctrkuv encounter Alexus Bagley MD Work Phone: [facility] Work Phone: Start: 06-10-2023 End: 86-00-9624Hakuodg encounter Bela Mazariegos MD, PhD Work Phone: [facility] CenterComment on above:Kidney donor (Primary Dx)Start: 06-10-2023 End: 19-73-6897Ybkfdjlepy hospital visit by Guerrero Mazariegos MD, PhD Work Phone: Imaging DoanComment on above:ArrivedStart: 11-22-2022 End: 37-64-4708rltfkmrxpuJI Roxanne B Rogers Work Phone: [facility] Work Phone: Start: 11-22-2022 End: 04-04-2162Dbznqvir ReferredDO Tonia Morin Work Phone: [facility] Work Phone: start: 04-16-2022 End: 59-51-5255chkccgbpxmOgpeutv Rogers Other [facility] Other Start: 25-64-2755Odsnkfmbi encounterTonia Winchester Ramone Primary CareStart: 02-24-2022 End: 90-11-6077azmuhdtjreEWSKJC ORCHARD HOSPITALSAFacility:K4Kawbf: 01-30-2022 End: 17-97-5999yckabywgiwIWHBAO PEACE HARBOR HOSPITALFacility:S1Yuujv: 12-26-2021 End: 87-56-7248ozwamckzftFCDHYN SAMSAFacility:I4Lrrrx: 26-78-9669Iakob Update Toniaanum Morin Work Phone: [phone]-Ukfzevjzu [facility] 150 Work Phone: Start: 53-82-4930Gqkpwlt encounter procedureTonia Morin Work Phone: [phone]-Nibxse Internal MedicineFranciscan Health [facility] Central Work Phone: Start: 21-66-8572Vydfekgsz for general adult medical examination without abnormal findingsPascack Valley Medical Center HospitalStart: 04-15-2021 End: 22-86-6869slxblzjvfpHHQXQT SAMSAFacility:J2Qpnar: 04-15-2021 End: 73-19-8772Quvoqvblh for general adult medical examination without abnormal findingsNATANOOP RACHELFacility:N7Pqmnq: 02-28-2021 End: 82-54-4569udyiiuzhxxCgurmrt Rogers Other [place] [facility] Other Start: 34-50-2763Dopzcykkt for general adult medical examination without abnormal findingsTonia Pack Primary CareStart: 31-57-5336Mqzvynib preventive med est patient 18-39 yrsRoxanum Pack Primary CareStart: 66-93-9744Zvagrqr encounter procedureMILITTLEHENNY DENNEYNIKOS Facility:[id number] Procedures DateProcedureProcedure DetailPerforming ClinicianStart: 19-81-4647Vsbsidscgx examination foot 2 viewsCashabbir Fowler DPM Work Phone: start: 60-84-6523ZYD AND ELECTRONIC DIFFTayla Mazariegos MD, PhD Work Phone: Start: 20-15-9986Asqcesox blood count with white cell differential, automatedTayla Mazariegos MD, PhD Work Phone: Start: 56-81-9847Phokmybaaq bloodTayla Mazariegos MD, PhD Work Phone: Start: 72-89-1978Lggrg dip stick/tablet reagent auto microscopyTayla Mazariegos MD, PhD Work Phone: Start: 16-78-9628Enxxveyrwy bloodNaeamon MCFADDEN Work Phone: Start: 69-82-7627Ygpus count Robert Llanos MD Work Phone: Start: 09-80-8914GCEDPYJ AURIS SCREEN BY Ruby Cantu [employer] Work Phone: Start: 56-90-0384YK Unspecified body regionPamelyaneli Barragan MD Work Phone: Start: 13-67-6505MRUUKEY RHYTHMOther OtherStart: 16-24-0179ORU-[place] LIVING DONOR ACD SAMPLE (TISSUE TYPING)Anum Marsh PA-C Work Phone: Start: 78-04-7749TNZ-TX LIVING DONOR SERUM SAMPLEAnum Marsh PA-C Work Phone: Start: 93-60-4902Cyskkjvyvstb chorionic qualitative Bebeto MCFADDEN Work Phone: Start: 51-37-9402Dxxchnotsl exam chest 2 viewsTayla Mazariegos MD, PhD Work Phone: Start: 08-40-6622Iwbbpoud screenSANDRA MARR Comment on above:Performed By: #### XMPO #### [facility] (DEFAULT) [address] [place] [address]Mfduq: 21-17-9534Awyyayjd do-bahena eb virus viral capsid vcParish Mazariegos MD, PhD Work Phone: Start: 81-97-5158Itzuq of magnesiumTayla Mazariegos MD, PhD Work Phone: Start: 53-96-0076Zhnrj dip stick/tablet reagent auto microscopyTayla Mazariegos MD, PhD Work Phone: Start: 91-83-5474Qrn abdomen w/o & w/contrast material Tayla Mazariegos MD, PhD Work Phone: Start: 53-58-8416Woapakiwqx exam chest 2 viewsToevens Bagley MD Work Phone: Start: 57-45-6973ZLJ AND ELECTRONIC DIFFToevens Bagley MD Work Phone: Start: 49-21-9772Bvwkomic blood count with white cell differential, automatedToevens Bagley MD Work Phone: Start: 89-78-9604Ubdfunddrfmzr metabolic panelToevens Bagley MD Work Phone: Start: 16-63-9154Yak class i&ii low hla-a -b -c -drb1/3/4/5&dqbAmer Kandi GARNER, PhD Work Phone: [phone]: 02-71-1994Ozoebhpqxsj tumor antigen quantitative ca 125Amer Kandi GARNER, PhD Work Phone: Start: 34-16-4190BLC LIVING DONORToevens Bagley MD Work Phone: Start: 00-19-9646Xsdhe dip stick/tablet reagent auto microscopyToevens Bagley MD Work Phone: Start: 30-68-3670Udntkqkaxio observation [Identifier] in Cervix by Cyto stainKatstuart Thomas DO Work Phone: appendectomyRoxanne B Mikel Work Phone: TonsillectomyRoxannanthony Morin Work Phone: Plan of Treatment DateCare ActivityDetailAuthorStart: 19-75-8488Vanmsrrti for malignant neoplasm of cervixNOMS HealthcareStart: 48-43-2747Arxyftjsm for malignant neoplasm of cervixPap SmearNOMS HealthcareStart: 08-25-2025 End: 19-40-6432Pilrmno encounter bynxqlsnl32/17/2026 10:00 AM EDT Office Visit [facility] [address] [place] [phone] May Thomas, DO [address] [place] [address] [facility] OBStart: 02-25-2025 End: 43-24-9926Zarfxsk encounter zlsqmegsy44/18/2025 3:30 PM EST Office Visit [facility] IM [address] [place] [phone] Fatou Barnes, DO [address] [place] [address] [facility] IMStart: 23-00-2278Erkjmkwgw vaccination Influenza Vaccine (Season Ended)NOMS HealthcareStart: 07-09-2024 End: 16-66-1490Eogmcbv encounter procedureNOMS [facility] PODIATRYComment on above: ArrivedStart: 07-02-2024 End: 24-91-5486Nozkcjs encounter cfhoxlmnj09/24/2025 8:45 AM EDT Office Visit [facility] PODIATRY [address] [place] [phone] Jaelyn Fowler, DPM [address] [place] [address] ArrivedNOMS [facility] PODIATRYComment on above:ArrivedStart: 02-25-2024 End: 51-58-9156Uqnknvs encounter ueusnuwzl00/17/2024 3:00 PM EST Office Visit [facility] IM [address] [place] [phone] Fatou Barnes, DO [address] [place] [address] [facility] IMStart: 15-24-2642Itaqwnnxw vaccination Influenza Vaccine (#1)NOMS HealthcareComment on above:Postponed from 11/10/2023 (Patient Refused)Start: 09-57-5203Cdpbbkwtc vaccinationC[facility] Clinic [facility] Start: 09-18-2023 End: 97-23-2262ORYYBHWVZA REFLEX TO CULTURECleveland Clinic Akron [facility] HospitalComment on above:Expected: 09/18/2023, Expires: 09/17/2024Start: 09-18-2023 End: 89-51-7452Yjztisv encounter qyevuewpx58/10/2024 10:00 AM EDT Office Visit [facility] Transplant [facility] Spine [facility] [address] [place] [address] Natanael Kay MD, PhD [address] [place] [address] [facility] Trans[facility] Institutetart: 08-23-2023 End: 86-98-3496Uvgdhrfhsut donor nephrectomy living donorDONOR NEPHRECTOMY LIVING DONOR LAPAROSCOPIC Kidney donor 08/23/2023 11:35 AM EDTOSU MAIN OR Start: 08-23-2023 End: 39-90-0568Idvhgifajt and management of inpatientBASUComment on above:Kidney donorDONOR NEPHRECTOMY LIVING DONOR LAPAROSCOPICStart: 08-12-2023 End: 52-87-6025BBO IGG/IGM TOTAL - [facility] Work Phone: Comment on above:Expected: 08/12/2023, Expires: 08/11/2024Start: 08-12-2023 End: 00-13-5381QJOXX T&B FLOW CROSSMATCHCleveland Clinic Akron [facility] HospitalComment on above:Expected: 08/12/2023, Expires: 08/11/2024Start: 08-12-2023 End: 24-35-0340Ggftebyb ECGECG ECG Routine Kidney donor Expected: 08/12/2023, Expires: 08/11/2024[facility] SystemComment on above:Expected: 08/12/2023, Expires: 08/11/2024Start: 08-12-2023 End: 97-25-4911BNO LIVING DONOROSOhiohealth Southeastern Medical CenterComment on above: Expected: 08/12/2023, Expires: 08/11/2024Start: 08-12-2023 End: 75-53-0648IEPO AND SCREEN - PREADMISSIONTYPE AND SCREEN - PREADMISSION Blood Bank Routine Kidney donor Expected: 08/12/2023, Expires: 08/11/2024OSOhiohealth Southeastern Medical CenterComment on above:Expected: 08/12/2023, Expires: 08/11/2024 Start: 08-12-2023 End: 57-47-6296TPUDFDNEUR REFLEX TO CULTURECleveland Clinic [facility] HospitalComment on above:Expected: 08/12/2023, Expires: 08/11/2024Start: 77-89-8335Tgfeytqjri hospital visit by amubkdkcs98/15/2024 7:40 PM EDT Hospital Encounter Imaging [facility] [address] [place] [address] Tayla Mazariegos MD, PhD [address] [place] [address] [facility] CareStart: 06-10-2023 End: 37-11-3489XY Chest PA and LateralXR CHEST PA AND LATERAL 2 VIEWS Imaging Routine Kidney donor Expected: 06/10/2023, Expires: 05/26/2024OSOhiohealth Southeastern Medical CenterComment on above:Expected: 06/10/2023, Expires: 05/26/2024Start: 05-27-2023 End: 98-35-6481VUQSR T&B FLOW CROSSMATCHDONOR T&B FLOW CROSSMATCH Lab Routine Kidney donor Expected: 05/27/2023, Expires: 05/26/2024[facility] Comment on above:Expected: 05/27/2023, Expires: 05/26/2024Start: 05-27-2023 End: 95-54-4470KKP TYPING (SOLID ORGAN)HLA TYPING (SOLID ORGAN) Lab Routine Kidney donor Expected: 05/27/2023, Expires: 05/26/2024[facility] Comment on above:Expected: 05/27/2023, Expires: 05/26/2024Start: 05-27-2023 End: 84-40-6938Frqjuruo ECGECG ECG Routine Kidney donor Expected: 05/27/2023, Expires: 05/26/2024[facility] Work Phone: Comment on above:Expected: 05/27/2023, Expires: 05/26/2024Start: 34-18-4765KFPHU-19 VACCINE ( season)COVID-19 VACCINE ()[facility] Centertart: 21-70-5575Nsbrqdk vaccinationTETANUSOSMcKitrick Hospitaltart: 35-89-3376Lnilmtnry for malignant neoplasm of cervixCERVICAL CANCER SCREENING DISCUSSIONOSMcKitrick Hospitaltart: 40-53-5211Cscji diphtheria, tetanus and acellular pertussis (DTaP) vaccinationTDAP (ADULT)[facility] Centertart: 52-44-5379CHZ screeningHIV SCREENING DISCUSSIONOSMcKitrick Hospitaltart: 1985 Hepatitis C screeningHEPATITIS C VIRUS SCREENINGC[facility] Clinic [facility] End: 94-03-9893IS angiography of renal arteryOSOhiohealth Southeastern Medical Center Work Phone: Comment on above:1 Occurrences starting 06/09/2023 until 06/09/2023LIDON PERFOMABLEDLIDON PERFOMABLE Lab Routine Kidney donor 08/12/2023 10:50 [facility] T&B FLOW CROSSMATCHDONOR T&B FLOW CROSSMATCH Lab Routine Kidney donor 06/10/2023 10:47 AM [facility]EXTRA 24 HR URINE TUBEEXTRA 24 HR URINE TUBE Lab Routine Kidney donor 06/10/2023 10:47 AM [facility] HospitalEXTRA MICROEXTRA MICRO Fluids Routine Donor, kidney 09/18/2023 10:04 AM [facility] EXTRA MICROEXTRA MICRO Fluids Routine Kidney donor 08/12/2023 10:50 AM [facility] HospitalEXTRA TUBESEXTRA TUBES Lab Routine Kidney donor 06/10/2023 10:47 AM [facility] HospitalHLA TYPING (SOLID ORGAN)HLA TYPING (SOLID ORGAN) Lab Routine Kidney donor 06/10/2023 10:47 AM [facility] OXALATE, 24HR URINEOXALATE, 24HR URINE Fluids Routine Kidney donor 06/10/2023 10:47 AM [facility] HospitalReagin Ab [Presence] in Serum by RPRRPR ([facility]) Lab Routine Kidney donor 08/12/2023 10:50 AM [facility] SENDOUT TEST MISCELLANEOUS LABCORPSENDOUT TEST MISCELLANEOUS LABCORP Lab Routine Screening for malignant neoplasm of cervix Ordered: 01/09/2024[facility] Work Phone: comment on above:Ordered: 01/09/2024 Immunizations Immunization DateImmunizationNotesCare ScdnjcfeLyrfjtxb93-01-5249bizwa papilloma virus vaccine, quadrivalentKathleen Rinkes DO Work Phone: [facility] InstituteZnlgqjwasl41-76-9778yzwfr papilloma virus vaccine, quadrivalentKathleen Rinkes DO Work Phone: [facility] InstituteUlzsubmirx78-55-2223yqsse papilloma virus vaccine, quadrivalentKathleen Rinkes DO Work Phone: [facility] InstituteDpmuxgjkuc63-31-9339tztuagvfe virus vaccine, unspecified formulationTayla Mazariegos MD, PhD Work Phone: [facility] SystemYruyat06-78-9309eoiyeyutl B vaccine, pediatric or pediatric/adolescent dosageRoxanne B Mikel Work Phone: [phone]-Zflnwa Internal MedicineFranciscan Health [facility] Work Phone: [phone]psnlgq B vaccine, pediatric or pediatric/adolescent dosageRoxanne B Mikel Work Phone: [phone]-Ltbaza Internal MedicineFranciscan Health [facility] Work Phone: [phone]pdgfhw B vaccine, pediatric or pediatric/adolescent dosageRoxannanthony B Mikel Work Phone: [phone]-Lhjyvq Internal [facility] Work Phone: [phone]qpzc, mumps and rubella virus vaccine Tonia B Mikel Work Phone: [phone]-DlrosrGolisano [facility] Work Phone: [phone]gkm and diphtheria toxoids, adsorbed, preservative free, for adult use (5 Lf of tetanus toxoid and 2 Lf of diphtheria toxoid)Toniaanum Morin Work Phone: [phone]-XftqcdGolisano [facility] Work Phone: [phone]xjwrdg, tetanus toxoids and pertussis vaccineRoxanum B Mikel Work Phone: [phone]-QogekyGolisano [facility] Work Phone: [phone]mrzqs poliovirus vaccine, live, oral Toniaanum Morin Work Phone: [phone]-HtdpxtGolisano [facility] Work Phone: [phone]ahtalw, tetanus toxoids and pertussis vaccineRoxanum B Mikel Work Phone: [phone]-QkdsylGolisano [facility] Work Phone: [phone]qkmaj poliovirus vaccine, live, oral Toniaanum Morin Work Phone: [phone]-Wngyxm Internal [facility] Work Phone: [phone]xppapgoc influenzae type b vaccine, HbOC conjugateTonia B Mikel Work Phone: [phone]-CpfdqzGolisano [facility] Work Phone: [phone], mumps and rubella virus vaccine Toniaanum Morin Work Phone: [phone]-RcuqshGolisano [facility] Work Phone: [phone]amtxph, tetanus toxoids and pertussis vaccineRoxanne B Mikel Work Phone: [phone]-Jlmxqa [facility] Work Phone: [phone]klej, tetanus toxoids and pertussis vaccineRoxanne B Mikel Work Phone: [phone]-Kfyrfk [facility] Work Phone: [phone]nzsos poliovirus vaccine, live, oral Tonia B Mikel Work Phone: [phone]-Onpcql [facility] Work Phone: [phone]esqidh, tetanus toxoids and pertussis vaccineRoxanne B Mikel Work Phone: [phone]-Wxmmrw [facility] Work Phone: [phone]etdri poliovirus vaccine, live, oral Tonia B Mikel Work Phone: [phone]-Ydsoia [facility] Work Phone: Payers DatePayer CategoryPayerPolicy [id number]-aqr [id number] [id number] Health Insurance [id number]01492.50436-36-5421Mnpbhba79-51-4988 [id number] 2..1.678138.3.57[id number] 2.0.1.021887.3.57[id number] 2.16.840.1.951129.3.57[id number] 2.840.1.772269.3.57[id number] 2.16.840.1.816784.3.57[id number] 2.840.1.380498.3.57[id number] 2.0.1.971040.3.57[id number] 2.0.1.585250.3.57[id number] 2.0.1.449157.3.57[id number] 2.0.1.425946.3.579.2.025475-18-3376Plewfxo49796000272322-12-6177Wlhhffr [id number] 2.0.1.542844.3.57[id number] 2.840.1.639077.3.57[id number] 2.840.1.587938.3.57[id number] 2.840.1.191160.3.579.2.594UnknownHCAP/HFA/FAP [id number] [id number]-lw4s-799y-1h8u-[id number] 2.840.1.259502.3.579.2.531 Social History DateTypeDetailFacilityStart: 05-10-2023 End: 96-15-7495Pgltu a smokerNever a smokerNorthridge [facility] Other Start: 05-10-2023 End: 20-47-2449Rcc Assigned At [facility] Other Start: 10-27-2018 End: 68-44-6324Nqwpmqa smoking status NHISNever smoked tobacco (finding) [facility]: 81-79-6822Sts Assigned At [facility] CenterF[facility]ol[facility]tart: 11-08-2022 End: 89-09-8645Kzlpeev use and exposureSmokeless tobacco non-userOSU [facility] Hospital - Andersontart: 06-10-2023 End: 55-94-4071Gubgkhfqz beverage intakeEx-drinker (finding)[facility] Andersontart: 00-73-4889Sao assigned at [facility]hamNot on fileC[facility] Clinic [facility] Start: 00-15-2273Caqdftg CommentCaffeine intake: noneNOMS HealthcareStart: 76-58-4869Vgfhxh identityIdentifies as female gender (finding)[facility] Start: 20-14-8409Wmxxkp orientationHeterosexual (finding)[facility] HealthcareSex Female (finding)[facility] Clinical Notes 02-28-2021 to 07-09-2024 Note Date & DbfjWixhOsscuohu56-25-8664 History of Present illness Narrative* Jaelyn Fowler DPM - 07/09/2024 8:00 AM EDT Images from the original note were not included. HPI: Chrystal Mason presents today for hardware removal left foot. Patient states that she has had painin the foot for 4 months. She describes the pain as aching, burning, and pressure-like which has not increased with time. Patient relates a negative history of trauma to the area. She has tried padding and shoe changes for treatment. No other complaints. Exam: General Examination: GENERAL APPEARANCE: awake, aware of surroundings, in no acute distress Vascular: DORSALIS PEDIS PULSE: 2/4, bilaterally POSTERIOR TIBIAL PULSE: 2/4, bilaterally TEMPERATURE GRADIENT: warm to cool EDEMA: none CAPILLARY FILLING TIME(sec): capillary fill inact bilateral digits less than 3 secs Neurologic: NEUROLOGIC: light touch is intact to the plantar foot Dermatologic: SKIN FINDINGS: incision site to the hardware removal area is healed. HYPERKERATOSIS: none NAIL PATHOLOGY: digits 1-5 bilateral are intact SKIN PATHOLOGY: texture, turgor, hair growth, within normal limits Orthopedic: FOOT MORPHOLOGY: neutral JOINT RANGE OF MOTION: without pain or crepitus to the foot and ankle bilateral DEFORMITIES: none PAIN ELICITED WITH PALPATION OF: No pain with palpation to the left foot PAIN ELICITED WITH ROM: none MUSCLE STRENGTH: 5/5 for all pedal groups tested Assessments: Mechanical complication of hardware left foot Left foot pain Plan: Patient's sutures have been removed. She is back into normal shoe gear without any complaints. Encouraged her to slowly return to normal activity and exercises. She can continue with ROM and stretching to the right 1st MPJ. Patient can do joint distraction as well to help with ROM in the great toe. Patient can go back to exercises as tolerated. RTC: as needed. documented in this encounterFreeman Heart InstituteGiphymctad38-96-5569 History of Present illness Narrative* Jaelyn Fowler DPM - 07/02/2024 8:45 AM EDT Images from the original note were not included. HPI: Chrystal Mason presents today for hardware removal left foot. Patient states that she has had painin the foot for 4 months. She describes the pain as aching, burning, and pressure-like which has not increased with time. Patient relates a negative history of trauma to the area. She has tried padding and shoe changes for treatment. No other complaints. Exam: General Examination: GENERAL APPEARANCE: awake, aware of surroundings, in no acute distress Vascular: DORSALIS PEDIS PULSE: 2/4, bilaterally POSTERIOR TIBIAL PULSE: 2/4, bilaterally TEMPERATURE GRADIENT: warm to cool EDEMA: none CAPILLARY FILLING TIME(sec): capillary fill inact bilateral digits less than 3 secs Neurologic: NEUROLOGIC: light touch is intact to the plantar foot Dermatologic: SKIN FINDINGS: normal HYPERKERATOSIS: none NAIL PATHOLOGY: digits 1-5 bilateral are intact SKIN PATHOLOGY: texture, turgor, hair growth, within normal limits Orthopedic: FOOT MORPHOLOGY: neutral JOINT RANGE OF MOTION: without pain or crepitus to the foot and ankle bilateral DEFORMITIES: none PAIN ELICITED WITH PALPATION OF: pain with palpation to the dorsal medial left foot along the pin site to the left foot bunion correction PAIN ELICITED WITH ROM: none MUSCLE STRENGTH: 5/5 for all pedal groups tested Assessments: Mechanical complication of hardware left foot Left foot pain Plan: Patient presents today for removal of hardware right foot. Area was anesthetized along the dorsal aspect of the left foot at the site of K wire using 5 ml of 2% lidocaine plain. Foot was then preppedwith Betadine. The pin was easily palpated along the dorsal/medial aspect of the left foot. Using a15 blade incision was performed and deepened through the skin and subcutaneous tissue down to the level of periosteum. Hemostasis was controlled with pressure. Periosteal tissue was incised and the Kwire was identified. A pair of pliers was used to remove the K wire from the underlying first metatarsal bone. After removal again hemostasis was obtained and the skin was closed using 4-0 nylon in ahorizontal mattress fashion. Dressing was applied with 2 x 2's and Band-Aid. Patient was instructedon daily dressing changes and suture removal. She will follow-up in 1-2 weeks for recheck. documented in this encounterFreeman Heart [id number] History of Present illness Narrative* Jaelyn Fowler DPM - 06/02/2024 4:00 PM EDT Images from the original note were not included. HPI: Chrystal Mason presents today for evaluation of left foot pain. Patient states that she has had pain in the foot for 4 months. She describes the pain as aching, burning, and pressure-like which has not increased with time. Patient relates a negative history of trauma to the area. She has tried padding and shoe changes for treatment. No other complaints. Exam: General Examination: GENERAL APPEARANCE: awake, aware of surroundings, in no acute distress Vascular: DORSALIS PEDIS PULSE: 2/4, bilaterally POSTERIOR TIBIAL PULSE: 2/4, bilaterally TEMPERATURE GRADIENT: warm to cool EDEMA: none CAPILLARY FILLING TIME(sec): capillary fill inact bilateral digits less than 3 secs Neurologic: NEUROLOGIC: light touch is intact to the plantar foot Dermatologic: SKIN FINDINGS: normal HYPERKERATOSIS: none NAIL PATHOLOGY: digits 1-5 bilateral are intact SKIN PATHOLOGY: texture, turgor, hair growth, within normal limits Orthopedic: FOOT MORPHOLOGY: neutral JOINT RANGE OF MOTION: without pain or crepitus to the foot and ankle bilateral DEFORMITIES: none PAIN ELICITED WITH PALPATION OF: pain with palpation to the dorsal medial left foot along the pin site to the left foot bunion correction PAIN ELICITED WITH ROM: none MUSCLE STRENGTH: 5/5 for all pedal groups tested Assessments: Mechanical complication of hardware left foot Left foot pain Plan: Discussed with the patient the findings of the radiographs, examination and further options for treatment. Patient's symptoms are consistent with hardware irritation to the 1st metatarsal. I discussed with the patient proceeding with hardware removal. Advised her that we will check with her insurance for removal in office. Advised her to continue with offloading and shoe gear for pressure relief.RTC: once approved with insurance. documented in this encounterFreeman Heart [id number] History of Present illness Narrative* Fatou Marr, - 02/25/2024 3:00 PM EST Images from the original note were not included. Subjective Patient ID: Chrystal Mason (: 1985) is a 38 y.o. female who presents for Annual Adult Preventive Visit. HPI : Chrystal is being seen today for an annual adult preventive visit. Pt has several lab results ordered per her specialists documented in EHR. Care gaps indicate recommendation for a seasonal flu vaccine and this will be offered to her today.... Pt declines at this time, update EHR. She reports she called the office on 02/12/2024- to request an appt and reports the person was rude and said we had no appts and what do you expect us to do? There is no note in the EHR, but I will have to check in to this She ended up going to an Urgent Care and was treated with Augmentin. She had done a My Chart message on 02/11/2024- but not sure where that went. Current Outpatient Medications Medication Instructions acetaminophen (TYLENOL) 325 mg, Every 6 hours albuterol HFA 90 mcg/act inhaler 2 puffs, Every 4 hours PRN ascorbic acid (VITAMIN C) 500 mg, Daily cholecalciferol (Vitamin D-3) 25 MCG (1000 UT) capsule 1 capsule, Every 24 hours Tdvspzsnuxx-Olcrwxddg-Tkriep (Trelegy Ellipta) 200-62.5-25 MCG/ACT aerosol powder 1 puff, Daily Melatonin 5 mg, Nightly PRN Multiple Vitamins-Minerals (MULTIVITAMIN GUMMIES ADULTS PO) 1 tablet, Daily norethindrone-ethinyl estradiol (Loestrin 03/30, ,) 1-20 MG-MCG tablet 1 tablet, Oral, Daily, Takecontinuous. Turmeric 500 MG capsule 1 tablet, Daily No Known Allergies Patient Active Problem List Diagnosis Major depressive disorder, single episode, unspecified (CMS/HCC) Mild intermittent asthma without complication (CMS/HCC) Endometriosis Periodic limb movement disorder Positive P-ANCA titer Multiple pulmonary nodules Hypersomnia Chronic pain syndrome Irritable bowel syndrome with predominant constipation Kidney donor Social History Tobacco Use Smoking status: Never Smokeless tobacco: Never Substance Use Topics Alcohol use: Not Currently Comment: Caffeine intake: none Drug use: Never Review of Systems Constitutional: Negative for activity change, appetite change, fatigue and unexpected weight change. She reports that she does not feel like her pre-transplant self (ie energy/stamina), but is slowly improving HENT: Negative for ear pain, [...] for immunocompromised state. 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 She reports the recipient (a friend of hers) is doing very well. -She will be followed by the Transplant Team for 2 years Other Visit Diagnoses Encounter for preventative adult health care examination - Primary -Reviewed age appropriate screenings, as well as recommended immunizations and lab monitoring. Health goals established. Patient Plan of care summary available. Encouraged healthy lifestyle choices regarding food choices and regular exercise. Pt expressed understanding of these recommendations. Medi cations have been reviewed and pt understands importance of taking medications as prescribed. Influenza vaccination declined Health Maintenance Topic Date Due Influenza Vaccine (1) 02/25/2024 (Originally 11/10/2023) Cervical Cancer Screening 12/19/2027 Immunization History Administered Date(s) Administered HPV, Quadrivalent 12/24/2008, 02/28/2009, 07/01/2009 Td (adult), 5 Lf tetanus toxoid, preservative free, adsorbed 02/07/1999 I spent a total of 25 minutes on the date of the service which included: time spent preparing to see the patient by reviewing last office note and chronic conditions, talking to the patient/documenting in the chart, examining the patient, placing orders in the chart and documenting in the chart after the visit. Protocols reviewed and updated. A collaborative plan of care has been created for pt regarding specific health concerns. Any barriers to care have been identified and addressed. Any part of this document that has been added/copied from other documents has been reviewed for accuracy and updated as appropriate at the time of the patient encounter. -Follow up in about 1 year (around 02/24/2025) for Annual Preventive visit. Fatou Marr D.O. Board Certified Fern Cutter documented in this encounterFreeman Heart [id number] History of Present illness Narrative* May Thomas DO - 01/09/2024 4:00 PM EDT Images from the original note [...] Review Audit Reviewed by Milli Wilde MA (Customer Assistant) on 01/09/24 at 1545 Medication Order Taking? Sig Documenting Provider Last Dose Status acetaminophen (Tylenol) 325 MG tablet [id number] No Take 325 mg by mouth every 6 (six) hours. Take two tablets as needed Historical ProviderMD Taking Active albuterol HFA 90 mcg/act inhaler [id number] No Inhale 2 puffs every 4 (four) hours if needed for wheezing or shortness of breath. Rx'd by Dr. Hewitt Historical ProviderMD Taking Active ascorbic acid (Vitamin C) 500 MG tablet [id number] No Take 500 mg by mouth in the morning. Fatou Marr, DO Taking Active cholecalciferol (Vitamin D-3) 25 MCG (1000 UT) capsule [id number] No Take 1 capsule by mouth 1 (one) time each day at the same time. Historical ProviderMD Taking Active Tmuubujowoh-Xampmpsgr-Rzazts (Trelegy Ellipta) 200-62.5-25 MCG/ACT aerosol powder [id number] No Inhale 1 puff in the morning. Rx'd by Dr. Hewitt. Historical ProviderMD Taking Active Loestrin 1/20, 21, 1-20 MG-MCG tablet [id number] No Take 1 tablet by mouth in the morning. Take continuous.. May Thomas, DO Taking Active Melatonin 5 MG sublingual tablet [id number] No Place 5 mg under the tongue as needed at bedtime (sleep issues). Historical ProviderMD Taking Active Multiple Vitamins-Minerals (MULTIVITAMIN GUMMIES ADULTS PO) [id number] No Take 1 tablet by mouth in the morning. Historical Provider, Taking Active Turmeric 500 MG capsule [id number] No Take 1 tablet by mouth 1 (one) time each day. 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 Hewitt Multiple pulmonary nodules she follows with PULM/XDr Rachel Periodic limb movement 01/30/2022 PSG done Positive [...] to gross testing, coordination, and gait are normalor at baseline unless noted below. General Examination: [...] of contraceptive pills - norethindrone-ethinyl estradiol (Loestrin 1/20, 21,) 1-20 MG-MCG tablet; Take 1 tablet by [...] Patient wishing to continue to ANALILIA LoEstrin 1/20. Has tried several other OCPs and unable to take, including generics of Loestrin ICD-10-CM 1. Encounter for gynecological examination without abnormal finding Z01.419 2. Screening for malignant neoplasm of cervix Z12.4 SENDOUT TEST MISCELLANEOUS [facility] 3. Encounter for surveillance of contraceptive pills Z30.41 norethindrone- ethinyl estradiol (Loestrin 1/20, 21,) 1-20 MG-MCG tablet documented in this encounterFreeman Heart [id number] History of Present illness Narrative* Prema Herrera RN - 09/18/2023 10:00 AM EDT Patient denies complaints BM: WNL Urination: WNL Pain: tylenol as needed Activity: good, still increasing NVD: denies Appetite: good * Tayla Mazariegos MD, PhD - 09/18/2023 10:00 AM EDT Patient denies complaints BM: WNL Urination: WNL [...] skin every 24 hours. 12 mL 0 Jqapvebrwgb-Hzqtsdyyl-Gipfjn 200-62.5-25 MCG/ACT Aerosol Powder, breath activated Inhale 1 puff daily. Multiple Vitamin (multivitamin) capsule Take 1 capsule by mouth daily. norethindrone-ethinyl estradiol (Loestrin 1/20, 21,) 1-20 MG-MCG tablet Take 1 tablet [...] Transplant Clinic on Visit date not found * BOB Colmenares - 09/18/2023 10:00 AM EDT MOOSE met with pt during her first [...] did not identify any additional questions or con cerns. MOOSE provided patient with contact information and encouraged her to call with any needs. documented in this encounterC[facility] Instructions* Patient Instructions* Prema Herrera RN - 09/18/2023 10:00 AM EDT You may slowly increase activities at tolerated. Stop any activities that cause pain, your body maynot be ready. Call donor nurses with names [...] for your amazing gift!!! documented in this encounterCleveland Clinic [facility]06-16-[facility] Nurse Note* Nursing Notes - Crystal Cao RN - 08/25/2023 3:54 PM EDT AVS reviewed with pt and family. All questions and concerns answered and addressed. Pt discharged with all personal belongings, accompanied by RN and family, via wheelchair. No barriers to discharge at this time. [facility]06[facility] Miscellaneous Notes* Nursing Notes - Crystal Cao RN - 08/25/2023 3:54 PM EDT AVS reviewed with pt and family. All questions and concerns answered and addressed. Pt discharged with all personal belongings, accompanied by RN and family, via wheelchair. No barriers to discharge at this time. 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 Mason was admitted to [address] [place] [address]. On admission to [facility], from PACU a dual RN initial assessment [...] belt at bedside Education on falls provided. * Op Note - BOGDAN Drake - 08/23/2023 2:39 PM EDT Operative Report DATE PERFORMED: 08/23/23 PREOPERATIVE DIAGNOSIS: Kidney donor POSTOPERATIVE DIAGNOSIS: Kidney donor PROCEDURE PERFORMED Procedure(s) (LRB): Hand assisted Laparoscopic left donor nephrectomy SURGEON: Gamaliel Drake MBBS Fellow- Steven Llanos MD ANESTHESIA: General [...] fashion. A time-out was conducted. Patient was thenplaced in left lateral position, patient secured to the table and care taken to cushion all the pressure points. After position abdomen prepped and draped using all sterile precautions. Lower midline incision given, the fascia opened in the midline and peritoneum entered. Rubia woundretractor placed in the incision and gel port [...] and taken to recipient room by the a ttending surgeon. Heparin was reversed with 30 ml protamine Lower midline peritoneal and fascia closed. Peritoneal cavity inspected for hemostatis. Compete hemostasis achieved. Ports taken out and gas removed from the abdomen. Ports site closed with vicryl 1-0 and skin incisions closed with subcuticular sutures. Abdominal TAP block given by the anesthesia team and patient extubated and shifted tothe PACU. I was present in the room throughout the case. Bebeto Balderrama Attending * Brief Op Note - BOGDAN Drake - 08/23/2023 2:14 PM EDT Chrystal Mason ([id number]) PRE OPERATIVE DIAGNOSIS Kidney donor [Z52.4] POST OPERATIVE DIAGNOSIS Kidney donor [Z52.4] PROCEDURE PERFORMED Procedure(s) (LRB): DONOR NEPHRECTOMY LIVING DONOR LAPAROSCOPIC (Left) PRIMARY CLOSURE Yes INTRAOPERATIVE FINDINGS No abnormalities SURGEON Surgeons and Role: * BOGDAN Drake - Primary ANESTHESIOLOGIST Anesthesiologist: Cher Cash MD; Chino Andrews MD STOKER INSTALLER: Leila Gallo APRN-STOKER INSTALLER; Aristides George APRN-VAL SURGICAL STAFF [employer]: Titus Traore RN Relief [employer]: Sweta Cleary RN Scrub Person: Kyle Elkins Resident Assisting: Manish Naranjo MD Fellow: Steven Llanos MD COMPLICATIONS None ESTIMATED BLOOD LOSS 100 ml SPECIMENS No specimen sent * No specimens in log * [facility] August 23, 2023 2:14 PM * Nursing Notes - Tonie Avalos RN - 08/23/2023 9:29 AM EDT Report given to Beverly Sharpe RN SPR documented in this encounterC[facility] Clinic [facility]06-16-[facility] History of Present illness Narrative* Socorro Rodriguez - 08/25/2023 12:29 PM EDT Images from the original note were not included. [facility] Note: Bedside Delivery Documentation The following prescription(s) were delivered to the nurse's station, Nurse Crystal Cao RN . Socorro Rodriguez [facility] ([place]) [phone] [facility] [phone] [facility] Bedside Delivery [phone] [facility] [phone] [facility] Bedside Delivery [phone] [facility] [phone] [facility] Bedside Delivery [phone] [place] [phone] [place] [phone] * Sabrina Kellogg [facility] - 08/25/2023 12:01 PM EDT Images from the original note were not included. [facility] Note: Non-Verbal Med Rec [facility] received the following discharge prescription(s): Total cost is $0. I have reviewed the Discharge Rx Reconciliation Report. The discharge prescription(s) will be delivered to the patient on 08/25/2023. Sabrina Kellogg RPH [facility] ([place]) [phone] [facility] [phone] [facility] [phone] [facility] [phone] [facility] Bedside Delivery [phone] [facility] [phone] [facility] [phone] [place] [phone] [place] [phone] * BOB Colmenarse - 08/25/2023 11:45 AM EDT MOOSE called pt in order to follow-up with her regarding her recent donation. Pt donated to her friend on 08/23/2023. MOOSE left pt a message requesting a return call. Mere NESBITT,BRICK VENEER MAKER Independent Living Donor Advocate [phone] * Manish Naranjo MD - 08/25/2023 5:40 AM EDT TRANSPLANT SURGERY PROGRESS NOTE: Date of Service: [...] pulses Skin: no lesions Medications: Refer to MAR Labs: Lab Results Component Value Date WBC [...] fellow, advanced practice provider and/or resident, physician pest controller assistant, transplant pharmacy, discharge planning and nursing. Manish Naranjo MD Associated attestation - Trisha Acevedo MD, PhD - 08/25/2023 8:42 PM EDT Transplant Attending Staff Progress and Discharge Note: The patient is 2 Days Post-Op. I interviewed, examined, reviewed records and formulated plans for this patient. I discussed the patient's condition and care plans with the residents, fellows, NELIA andentire care team and agree with the details [...] condition, potential and actual diagnoses have been discus sed with the patient. The care plan has been communicated to the patient and care team. All questions have been answered. Trisha Acevedo MD PhD * Gardenia Summers RN - 08/24/2023 4:47 PM EDT Clinical Business Process Associate (CCM) Post-Operative Assessment of Discharge Needs for Living Donor Assessment Patient presented to hospital for kidney donation surgery on 08/23/23. She is independent with activities of daily living, including driving. Patient's primary support person at discharge will be spouse and mother. CCM did review demographicsheet with the patient to confirm accuracy. Outside services: Not Applicable Provided by: Not Applicable Durable medical equipment: None. Medical supplies: None. Patient Care Team: Fatou Marr DO as PCP - General (Internal Medicine) Other [facility] as PCP - Employment Program Representative (Transplant) Financial Patient is employed full-time. Patient denies financial concerns related to taking time off from work related to her organ donation. Post-Operative Appointments & Medications Follow-Up Appointments scheduled by the Donor Office Associates in the [facility] Transplant [facility]. [facility] has reviewed the patient's chart to confirm appointments are reflected. Patient was reminded to bulk picker discharge transplant medications from the outpatient [facility]. Discharge Plan Prior to admission she was living with her . Patient will discharge home with the support ofher and mother. Patient will not need transportation assistance home at discharge. Patient assessment does not identify needs by the clinical nurse case manager at this time. Reconsult Case Management if discharge needs arise. Gardenia BRADFORD RN Clinical Business Process Associate Please note that I am a float nurse case manager and may not cover the same service every day. Please call the main Case Management office at [phone] for up-to-date coverage. Verified patients identity using date of . Appropriate PPE utilized. * Dipika Arellano RD - 08/24/2023 10:02 AM EDT NUTRITION CONSULT FOR DONOR NEPHRECTOMYASSESSMENT & EDUCATION Nutrition Plan of Care/DISCHARGE PLAN Continue current diet order; Monitor return of bowel function adj bowel regimen retail warehouse supervisor avoid protein powders and other protein supplements, encouraged payroll assistant hydration, Encouraged to contact donor transplant team [...] Thanks Dipika Arellano, MS, RD, LD Pager: [phone] For up to date coverage please see iovation schedule for Dietitian Electrician Ship or Dietitian Weekends/Holidays Schedule. Thank you. 08/24/23Pt [...] whole foods like yogurt, peanut butter- PB2 powde r instead of protein powder; reviewed spark energy drink from [employer] and discussed avoiding r/tvitamin/mineral supplementation significantly above 100%; uses a fiber [...] (adm wt: 58.5 kg) Energy Requirements (kcal/day): 1353-6858 Kcal/k-33 Protein Requirements (g/day): 45-70 Protein (g/kg): [...] Indicators to Diagnose Malnutrition (AAIM) criteria (2012) * Manish Naranjo MD - 08/24/2023 6:55 AM EDT TRANSPLANT SURGERY PROGRESS NOTE: Date of Service: [...] PO and ambulation. Will need prophylactic lovenox atdischarge for 2-4 weeks post-op while taking OCP [...] pulses Skin: no lesions Medications: Refer to MAR Labs: Lab Results Component Value Date WBC [...] fellow, advanced practice provider and/or resident, physician pest controller assistant, transplant pharmacy, discharge planning and nursing. Manish Naranjo MD Associated attestation - Tayla Mazariegos MD, PhD - 08/24/2023 3:48 PM EDT I. Tayla Mazariegos MD, PhD, have independently seen and examined the patient, reviewed the labs, discussed the patient with the fellow/resident and agree with the note. * Stephie Jon MD - 08/23/2023 6:53 PM EDT Transplant Surgery Post-Operative Check ID/CC: Chrystal Mason [...] please do not hesitate to page the parlor chaperone resident (on WebExchange, search Transplant > parlor chaperone now > Resident Consult Days TRR OR Resident Evenings and Weekends [Evenings start at 5pm except start at 6pm] ). Stephie Jon MD PGY-2 General Surgery [phone] * Radha Cosby [facility] - 08/23/2023 3:38 PM EDT Department of Pharmacy Transplant Note Patient: Chrystal Mason Room/Bed: [facility] Chrystal Mason is s/p donor nephrectomy on 08/23/23. This patient's medications prior to surgery werereviewed and restarted as appropriate for the hospital admission. On discharge, the following medications should NOT be resumed: Loestrin for 30 days post operatively due to clot risk . No further needs anticipated, patient ready for discharge from a pharmacy perspective. I remain available for consultation and can be contacted, as needed by the other members of the transplant team. Name: Radha Cosby [facility] Phone #: [phone] Date/Time: 08/23/2023 3:39 PM * Sheyla Adkins - 08/22/2023 3:49 PM EDTSummary: Pharmacy Med Rec--Donor Department of Pharmacy Admission [...] cholecalciferol PO TO 1,000 unit cap daily. oieyglhcgsv-xslcqwdqi-dvjrip IN, inhale TO 200-62.5-25 mcg/act, inhale 1 puff daily. Probiotic product PO TO take 1 cap daily. OARRs Report: Has been reviewed. Medications that need removed from Outside Medication Reconciliation list: Please remove all medications. Please feel free to contact me with any further questions. Name: Sheyla Adkins Phone #: [phone] Date/Time: 08/22/2023 3:50 PM Time Spent: 10 minutes Associated attestation - Radha Cosby RPH - 08/22/2023 4:04 PM EDT Department of Pharmacy Admission Medication Reconciliation Note Patient: Chrystal Mason Room/Bed: Room/bed info not found I have reviewed the home medication list with the Pole Peeling Machine Operator Helper. The home medication list status is: complete. All changes to the home medication list have been updated in [facility]HIS. Updated TELEVISION OPERATOR Med List: Cannot display prior to admission medications because the patient has not been admitted in this contact. Please feel free to contact me with any further questions. Name: Radha Cosby, [facility] Phone #: [phone] Date/Time: 08/22/2023 4:04 PM documented in this encounterOS[facility]24 Plan of care note* Plan of Care - Dipika Arellano RD - 08/24/2023 10:48 AM EDT Problem: Oral Intake Inadequate Goal: Improved Oral Intake Outcome: Progressing Nutrition Plan of Care/DISCHARGE PLAN Continue current diet order; Monitor return of bowel function adj bowel regimen retail warehouse supervisor avoid protein powders and other protein supplements, encouraged halfway hydration, Encouraged to contact donor transplant team [...] this will act as their discharge recommendations [facility]06-14-2024 Nurse Note* Nursing Notes - Zakia Moya RN - 08/23/2023 4:29 PM EDT Ms. Mason was admitted to [address] [place] [address]. On admission to [facility], from PACU a dual RN initial assessment [...] belt at bedside Education on falls provided. [facility]06-14-2024 Hospital Discharge instructions* Discharge Instructions* JAMIR Biggs - 08/23/2023 3:22 PM EDT TO CONTACT US: To reach a Coordinator: Call the PreTransplant Office [phone] (8:00am -4:00pm) After hours call the PreTransplant [...] medications in different ways and it is importantto know that there are risks. Store this [...] perform sexually, serious health problems, and . * Attachments The following attachments cannot be sent through Care Everywhere. * Anticoagulant: Injectable ([place] Citizen) [facility] Nurse Surgical operation note* Titus Traore RN - 08/23/2023 2:47 PM EDT Report given to Roseanna AUTOGRAPHER. All questions answered. Patient to be transported to PACU with anesthesia. [facility] Note* Titus Traore RN - 08/23/2023 2:47 PM EDT Report given to Roseanna AUTOGRAPHER. All questions answered. Patient to be transported to PACU with anesthesia. documented in this encounter[facility] Surgery Postoperative evaluation and management note* Op Note - BOGDAN Drake - 08/23/2023 2:39 PM EDT Operative Report DATE PERFORMED: 08/23/23 PREOPERATIVE DIAGNOSIS: Kidney donor POSTOPERATIVE DIAGNOSIS: Kidney donor PROCEDURE PERFORMED Procedure(s) (LRB): Hand assisted Laparoscopic left donor nephrectomy SURGEON: Gamaliel Drake MBBS Fellow- Steven Llanos MD ANESTHESIA: General [...] fashion. A time-out was conducted. Patient was thenplaced in left lateral position, patient secured to the table and care taken to cushion all the pressure points. After position abdomen prepped and draped using all sterile precautions. Lower midline incision given, the fascia opened in the midline and peritoneum entered. Rubia woundretractor placed in the incision and gel port [...] and taken to recipient room by the a ttending surgeon. Heparin was reversed with 30 ml protamine Lower midline peritoneal and fascia closed. Peritoneal cavity inspected for hemostatis. Compete hemostasis achieved. Ports taken out and gas removed from the abdomen. Ports site closed with vicryl 1-0 and skin incisions closed with subcuticular sutures. Abdominal TAP block given by the anesthesia team and patient extubated and shifted tothe PACU. I was present in the room throughout the case. Bebeto Balderrama Attending [facility] Work Phone: [phone] Surgery Postoperative evaluation and management note* Brief Op Note - BOGDAN Drake - 08/23/2023 2:14 PM EDT Chrystal Mason ([id number]) PRE OPERATIVE DIAGNOSIS Kidney donor [Z52.4] POST OPERATIVE DIAGNOSIS Kidney donor [Z52.4] PROCEDURE PERFORMED Procedure(s) (LRB): DONOR NEPHRECTOMY LIVING DONOR LAPAROSCOPIC (Left) PRIMARY CLOSURE Yes INTRAOPERATIVE FINDINGS No abnormalities SURGEON Surgeons and Role: * BOGDAN Drake - Primary ANESTHESIOLOGIST Anesthesiologist: Cher Cash MD; Chino Andrews MD STOKER INSTALLER: Leila Gallo APRN-STOKER INSTALLER; Aristides George APRN-VAL SURGICAL STAFF [employer]: Titus Traore RN Relief [employer]: Sweta Cleary RN Scrub Person: Kyle Elkins Resident Assisting: Manish Naranjo MD Fellow: Steven Llanos MD COMPLICATIONS None ESTIMATED BLOOD LOSS 100 ml SPECIMENS No specimen sent * No specimens in log * [facility] BOGDAN Drake August 23, 2023 2:14 PM [facility]06-14-2024 Nurse Note* Nursing Notes - Tonie Avalos RN - 08/23/2023 9:29 AM EDT Report given to Beverly Sharpe RN SPR [facility]06-14-2024 History and physical note* Manish Naranjo MD - 08/23/2023 7:51 AM EDT Transplant Surgery Admission Note Patient: Chrystal Mason [...] acid (VITAMIN C) 500 mg, Oral, DAILY Faxttalnyhv-Fxitceaqd-Nrymev 200-62.5-25 MCG/ACT Aerosol Powder, breath activated 1 [...] Naranjo MD Department of General Surgery Pager: [phone] Associated attestation - Bebeto Balderrama MBBS - 08/23/2023 11:01 AM EDT I saw and examined Chrystal Mason on 08/23/2023 prior to surgery. The risks and benefits of donor nephrectomy were discussed. I explained the potential complications that may occur during/after donornephrectomy that include but are not limited to bleeding, infection, need for additional procedures. BOGDAN Drake [facility]06-14-2024 History and physical note* Manish Naranjo MD - 08/23/2023 7:51 AM EDT Transplant Surgery Admission Note Patient: Chrystal Mason [...] acid (VITAMIN C) 500 mg, Oral, DAILY Hzpchhknayk-Vgjafsxxc-Trpndy 200-62.5-25 MCG/ACT Aerosol Powder, breath activated 1 [...] Naranjo MD Department of General Surgery Pager: [phone] Associated attestation - Bebeto Balderrama MBBS - 08/23/2023 11:01 AM EDT I saw and examined Chrystal Mason on 08/23/2023 prior to surgery. The risks and benefits of donor nephrectomy were discussed. I explained the potential complications that may occur during/after donornephrectomy that include but are not limited to bleeding, infection, need for additional procedures. BOGDAN Drake documented in this encounterC[facility] History of Present illness Narrative* Chino Sweeney RN - 08/12/2023 9:00 AM EDT Chrystal Mason attended pre-op donor education session, including pre-op labs, EKG and CXR. Patient was provided written and verbal education regarding admission date/time/location, pre-op and surgery procedures, post-op hospital stay, discharge and post donation care. Reviewed current medical center visitation policy. Reinforced required post donation follow-up schedule, patient verbalized acceptance. Stressed donor educational points: * Avoid lifting, pushing, pulling > 5lbs, strenuous activity and exercise for 4- 6 weeks post donation * Most people live normal, healthy lives [...] post donation * Make sure you see you complete donor follow up at 4-6 weeks, 6 months, 1 yr and 2 yrs post donation Donor notified that The [facility] Transplant program is required to obtain a living donor blood specimen at surgery to store the specimen for 10 years, only to be used for investigation of potential donor-derived disease. * BOB Colmenares - 08/12/2023 9:00 AM EDT MOOSE met with this 38 y.o. Female who is scheduled to be a kidney donor to her friend on 08/23/2023. TELEVISION OPERATOR pt lived with her of a year and was independent in her activities of daily living. Pt did not receive any outside services and did not use any durable medical equipment. Pt was open with her emotions and appears to be coping adequately. LDA provided emotional support. Pt denied having any current depression or anxiety. MOOSE stressed to pt that anxiety and depression are common after donation. MOOSE encouraged pt to call this LDA if she feels that she is experiencing any depression and or anxiety after surgery. MOOSE also informed pt that a transplant psychologist is available to pt if wanted. Pt voiced her understanding. Pt stated that she feels that her family and friends have been supportive of her decision to donate. Pt stated her and mom, who were present, will be able to assist her upon discharge. Pt works FT and will receive paid leave. Pt denied that donating would cause her a financial hardship. MOOSE explained the medical out to pt and offered it to her. Pt yann lized her understanding and declined it stating that she is committed to the donation process. MOOSE reviewed health care power of atomizer assembler (HCPOA) information with pt and provided her with the documents. LDA discussed Legal Next Of Kin. MOOSE discussed that by designating a HCPOA, this allows for her to name a person to act on her behalf to make health care decisions if she was unable to make the decision herself. MOOSE explained that designating a HCPOA is only for health care decisions and not financial power of atomizer assembler. MOOSE advised HCPOA does not have to be completed while at [facility] and can be completed outside of [facility] as well either by a public notary or witnessed by two individuals not related to patient. Patient expressed an understanding. LDA reminded pt to fill her [facility] upon discharge and they will be covered in full for her. MOOSE discussed and stressed to pt the personal benefit, need and importance of completing the donor follow-up, the first being 4-6 weeks post donation, then at 6 months, one year and two years post donation. Pt verbalized her understanding. Pt did not identify any additional needs. Pt verbalized that she has this LDA s contact information. MOOSE encouraged pt to call with any needs. documented in this encounterC[facility]06[facility] Instructions* Patient Instructions* Chino Sweeney RN - 08/12/2023 9:00 AM EDT Images from the original note were not included. You will need to complete additional testing today. When your visit is complete please take the elevator to the second floor, turn right and follow the hallway to the end for radiology. You will havea chest x-ray completed. Once that is complete your appointment today is finished. Once discharged from the hospital, our parlor chaperone coordinator can be reached after 4pm or on weekends at . Planning for Surgery: Discontinue the following medications at least 2 weeks prior to your scheduled surgery: -oral control and / or hormone replacement pills or patches -aspirin and NSAIDS -herbal supplements It is recommended to discontinue tobacco and alcohol use at least 2 weeks prior to surgery. Reminders for surgery day: - Nothing by mouth after midnight - Shower with surgical soap the night before and morning of surgery - Take medications with small amount water - Bring photo ID, medication list and loose, comfortable clothing for discharge - [facility], [address]) Donor Education Reminders: * Most people live [...] take it easy for 4 to 6 weeksat home. Follow-up care is a waters part of your treatment and safety. Be sure to make and go to all appointments, and call your doctor if you are having problems. It's also a good idea to know your test resultsand keep a list of the medicines you [...] weeks before donation and need to refrain fromuse until seen for follow up appointment after [...] not apply lotions, perfumes, deodorants, or nail greenlandic. Do not shave the surgical site yourself. [...] Where can you learn more? Go to http://www.[email or web address]/patiented. Enter A490 in the search box to learn more about 'Laparoscopic Nephrectomy: Before Your Surgery.' Interested in seeing a video go to [email or web address]/[email or web address] to see all video content. Current as of: October 20, 2018 Content Version: 12. [employer]. Care instructions adapted under license by your healthcare professional. If you have questions about a medical condition or this instruction, always ask your healthcare professional. [employer] disclaims any warranty or liability for your [...] or dog food bags, or a vacuum sack cleaner. Hold a pillow over the cuts [...] special diet for your kidneys before surgery, followthat diet until your doctor tells you to [...] taking a prescription pain medicine, take an zeba-loo-rfhhlzp medicine that your doctor recommends. Read and [...] cover the incisions with gauze bandages if theyweep or rub against clothing. Change the bandages every day. Keep the area around the incisions clean and dry. Follow-up care is a waters part of your treatment and safety. Be sure to make and go to all appointments, and call your doctor if you are having problems. It's also a good idea to know your test resultsand keep a list of the medicines you [...] Where can you learn more? Go to http://www.[email or web address]/patiented. Enter L270 in the search box to learn more about 'Laparoscopic Nephrectomy: What to Expect at Home.' Interested in seeing a video go to [email or web address]/videolibrary to see all video content. Current as of: October 20, 2018 Content Version: 12.5 [employer]. Care instructions adapted under license by your healthcare professional. If you have questions about a medical condition or this instruction, always ask your healthcare professional. [employer] disclaims any warranty or liability for your use of this information. Checking Your Blood Pressure What is blood pressure? Your heart is a pump. Its job is to pump blood throughout your body. Each time your heart beats, itcreates a force. Blood pressure is the force [...] against the artery when your heart relaxes. Thissecond number is called the diastolic pressure. A [...] if you feel better. documented in this encounterC[facility] History of Present illness Narrative* ROSALIO Garcia - 06/10/2023 10:00 AM EDT Transplant Donor Psychosocial Evaluation Demographics: Patient is a 38 y.o., White, female who presented for a Kidney donor transplant evaluation.Patient completed evaluation with spouse. Patient was AOx4. The [facility] psychosocial assessment consentform has been signed and this outreach and education social worker informed patient confidentiality. Patient does demonstrate the ability to make informed decisions. leather worker educated patient on the benefits of havingadvanced directives. Patient identifies with SHINTO rastafarian. Patient confirms being a [place] Citizen. Patient's preferred language is [place] Citizen. Patient identifies as an MYRANDA donor and her relationship to recipient is friend. Education: Patient's highest level of education is an Associate's degree in applied science (TELEVISION OPERATOR). She denies a history of developmental delay [...] primary support team will include spouse (Vinicio Naranjo35). Additional support includes her mother (61) who [...] Full-Time. 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 leather worker reviewed stress related to medical procedures and major surgery, including stress of staying in the hospital, being awayfrom home, and being unable to complete typical [...] for 15 years. Patient states that she learnedabout the recipient's need for a transplant through a facebook page that recipient uses to update friends and family on her health issues. She reports that they offered to donate and the recipient was very touched . She states that their motivation to donate includes I have donated blood since Iwas 18 and always loved the feeling of [...] purpose for that too. The donor indicates thatif recipient experiences complications at any point post-transplant they would feel It would be bummer, but I wouldn't feel like it was a waste or anything like that. Patient voices that she has noconcerns regarding donation . Patient denies feeling pressure to donate or being offered pay/rewardto donate. Patient's decision to donate was free of coercion and other undue pressure. Social work e xplained the option for a medical out with the patient and encouraged they were encourage to notifytransplant staff at any time to express those wishes. Understanding of Donation Process: Patient voices understanding regarding how donation will change their life as a potential organ donor including post-surgical limitations and long-term needs, as well as transplant care for recipient. Patient does demonstrate understanding regarding organ donation process. Social work reviewed withpatient Donor Risk Criteria Survey and they verbalized understanding the purpose of the questions. Patient denies current or history of surveyed behaviors to note within the last 30 days. She identified with none of the indicated behaviors. Patient denies any questions regarding Donor Risk CriteriaSurvey. Patient was encouraged to discuss additional questions [...] work discussed and reviewed the short and halfway psychological risks associated with donation, which include: [...] team for continuity of care. DELICIA Garcia, LEONARD Outpatient Transplant Wind Tunnel Mechanic [facility] [address] [place], [place] [address] [email or web address] * Chino Sweeney RN - 06/10/2023 10:00 AM EDT Chrystal Mason was seen for evaluation for [...] appropriate questions and demonstrated understanding of answers. [facility] high risk survey completed and reviewed by [...] CTA today during evaluation. Social work, KIKE, log buncher and transplant surgeon also evaluated this patient. [...] are any further questions. 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 Females over the age of 40 needa mammogram. Females over the age of 50 should have an update colonoscopy or stool hemocults. She has been explained the donation process in detail, and specifically understands the potential of the future development of hypertension, proteinuria, need for chronic or temporary dialysis or . She further understands that the recipient may have rejection or loss of the transplanted organ or recurrence of any chitimacha kidney disease. She understands everything, all questions have been answered and wishes to proceed. She has been advised to avoid the use of non-steroidal anti-inflammatory medications, to promptly seek medical attention if she develops signs or symptoms of a urinary tract infection or kidney stone. She knows she should have annual physical examinations and assessment of renal function and blood p ressure with her primary physician. She does not [...] and data, counseling and coordination of care. Mir Bagley M.D. concrete puddler Air Traffic Control Equipment Repairer, Kidney and Pancreas Transplantation documented in this encounterC[facility] Instructions* Patient Instructions* Chino Sweeney RN - 06/10/2023 10:00 AM EDT Images from the original note were not included. You have been seen in the living donor evaluation clinic. Your living donor coordinators are Cl, they can be reached at [phone] for questions during the donation process. You will need to complete additional testing today. When your visit is complete please take the elevator to the second floor, turn right and follow the hallway to the end for radiology. You will havea chest x-ray and CTA scan completed (2 [...] take it easy for 4 to 6 weeksat home. Follow-up care is a waters part of your treatment and safety. Be sure to make and go to all appointments, and call your doctor if you are having problems. It's also a good idea to know your test resultsand keep a list of the medicines you [...] weeks before donation and need to refrain fromuse until seen for follow up appointment after [...] not apply lotions, perfumes, deodorants, or nail greenlandic. Do not shave the surgical site yourself. [...] Where can you learn more? Go to http://www.[email or web address]/patiented. Enter A419 in the search box to learn more about 'Laparoscopic Nephrectomy: Before Your Surgery.' Interested in seeing a video go to [email or web address]/videolibrary to see all video content. Current as of: October 20, 2018 Content Version: 12.5 [employer]. Care instructions adapted under license by your healthcare professional. If you have questions about a medical condition or this instruction, always ask your healthcare professional. [employer] disclaims any warranty or liability for your [...] or dog food bags, or a vacuum sack cleaner. Hold a pillow over the cuts [...] special diet for your kidneys before surgery, followthat diet until your doctor tells you to [...] taking a prescription pain medicine, take an ltbv-uik-gwdwkxq medicine that your doctor recommends. Read and [...] cover the incisions with gauze bandages if theyweep or rub against clothing. Change the bandages every day. Keep the area around the incisions clean and dry. Follow-up care is a waters part of your treatment and safety. Be sure to make and go to all appointments, and call your doctor if you are having problems. It's also a good idea to know your test resultsand keep a list of the medicines you [...] Where can you learn more? Go to http://www.[employer].[email or web address]/patiented. Enter L270 in the search box to learn more about 'Laparoscopic Nephrectomy: What to Expect at Home.' Interested in seeing a video go to [email or web address].[email or web address]/videolibrary to see all video content. Current as of: October 20, 2018 Content Version: 12.5 [employer]. Care instructions adapted under license by your healthcare professional. If you have questions about a medical condition or this instruction, always ask your healthcare professional. [employer] disclaims any warranty or liability for your use of this information. Checking Your Blood Pressure What is blood pressure? Your heart is a pump. Its job is to pump blood throughout your body. Each time your heart beats, itcreates a force. Blood pressure is the force [...] against the artery when your heart relaxes. Thissecond number is called the diastolic pressure. A [...] if you feel better. documented in this encounterC[facility] History of Present illness Narrative* Chino Sweeney RN - 06/10/2023 7:30 AM EDT Note placed under Txp Neph * Tayla Mazariegos MD, PhD - 06/10/2023 7:30 AM EDT Chrystal Mason was examined for surgical evaluation [...] oral and IV medications as well as EVS MANAGER if needed. I explained to her that the natural history of endometriosis and the possibility of flare after donations. * BOB Colmenares - 06/10/2023 7:30 AM EDT LIVING DONOR ADVOCATE ASSESSMENT leather worker requested as Living Donor Advocate for patient who is a potential kidney donor. The potential recipient is her friend. Pt met her friend when she worked with her friend's 15 years ago. Pt's friend has since moved away, but they have remained in contact. This outreach and education social worker met with patient and discussed her motivations, [...] from the recipient for this kidney donation. Patienthas been educated by LDA and acknowledges and understands that it is a federal crime for any personknowingly acquire, obtain or otherwise transfer any human [...] been supportive of her decision to donate. Patientstated that her and mom will be able to assist her during her recovery. Pt's mom is retiredand lives 10 minutes from pt. Pt's attended [...] for the schools. 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 She has enough ill time to cover her leave, but she hopes to donate when she is on break. Pt denied that donating would cause her a financial hardship. Living Donor Advocate concerns: LDA did not identify any concerns and supports this patient s decision to donate. documented in this [facility] Instructions* Patient Instructions* Chino Sweeney RN - 06/10/2023 7:30 AM EDT documented in this encounterOSU [facility] System01-28-2022 NoteHNO ID: [id number] Author: Quinn Garza MD Service: ? Author Type: Physician Type: Progress Notes Filed: 04/11/2021 2:42 PM Note Text: Chrystal Teran is a 35 year old female. Consultation was requested by Dr. Hewitt (transcription) for an opinion regarding possible ANCA-vasculitis; my [...] to pulmonology. Jan 2021: first visit with transcription; she had PFTs: mildly abnormal suggestive of [...] vomiting, diarrhea URINARY: negative for, dysuria, hematuria TESTICULAR/LAB PACK CHEMIST: negative for, pain, swelling, genital lesions or [...] Acet-Ethinyl Est 1-20 mg-mcg per tablet - xmkkt-9r-rln-epa-fish oil 600-1,200 mg cap - multivitamin (MULTIPLE VITAMIN ORAL) Take 1 tablet by mouth once daily. - TURMERIC ORAL - MULTIVITAMIN TAB Take one(1) tablet daily. No current facility-administered medications for this visit. ALLERGIES: Patient has no known allergies. SOCIAL HISTORY: Social History Tobacco Use (more content not included)...[facility]12-21-2021 Evaluation note* Encounter Date Diagnosis Assessment Notes Treatment Notes Treatment Clinical Notes Feb, Wellness examination (ICD-10 - Z 00.00) Age appropriate screening & recommendations reviewed & discussed with patient. Feb,Granulomatosis with polyangiitis (ICD-10 - M31.30) See HPI for details on dx. Since last seen patient has been dx with Wegeners. She is seeing pulm, doing well. Primordial Other Evaluation noteNo InformationNortWellSpan Surgery [facility] Other evaluation noteNo assessment information available [facility] Work Phone: Evaluation note* Diagnosis [facility]- [facility] Diagnosis Kidney living donor evaluation, pre-op- Primary Kidney [facility] Diagnosis Kidney donor Kidney [facility] Diagnosis Kidney donor- Primary Renal donor Kidney [facility] Diagnosis Donor, kidney- Primary Kidney [facility] Diagnosis Encounter for preventative adult health care examination- Primary Periodic limb movement disorder Multiple pulmonary nodules Other diseases of lung, not elsewhere classified Irritable bowel syndrome with predominant constipation Mild intermittent asthma without complication ([facility]/HCC) Encounter for gynecological examination without abnormal finding Screening for malignant neoplasm of cervix Screening for malignant neoplasm of the cervix Encounter for surveillance of contraceptive pills documented in this encounter [facility]* Diagnosis Kidney donor- Primary Kidney donor Kidney [facility] Diagnosis Encounter for preventative adult health care examination- Primary Periodic limb movement disorder Multiple pulmonary nodules Other diseases of lung, not elsewhere classified Irritable bowel syndrome with predominant constipation Mild intermittent asthma without complication (CMS/HCC) Encounter for preventative adult health care examination- Primary Influenza vaccination declined Kidney donor [facility] Diagnosis Encounter for preventative adult health care examination- Primary Periodic limb movement disorder Multiple pulmonary nodules Other diseases of lung, not elsewhere classified Irritable bowel syndrome with predominant constipation Mild intermittent asthma without complication (CMS/HCC) Mechanical complication associated with orthopedic device, initial encounter (CMS/HCC)- Primary Left foot pain Pain in soft tissues of limb [facility]* Diagnosis Encounter for preventative adult health care examination- Primary Periodic limb movement disorder Multiple pulmonary nodules Other diseases of lung, not elsewhere classified Irritable bowel syndrome with predominant constipation Mild intermittent asthma without complication (CMS/HCC) Mechanical complication associated with orthopedic device, initial encounter- Primary Left foot pain Pain in soft tissues of limb [facility]* Diagnosis Encounter for preventative adult health care examination- Primary Periodic limb movement disorder Multiple pulmonary nodules Other diseases of lung, not elsewhere classified Irritable bowel syndrome with predominant constipation Mild intermittent asthma without complication (CMS/HCC) Mechanical complication associated with orthopedic device, initial encounter- Primary Left foot pain Pain in soft tissues of limb Surgery follow-up examination Follow-up examination, following unspecified surgery [facility] Narrative - Reported* Type Description Date Medical History Polycystic ovaries Medical HistoryEndometriosisMedical HistoryBunionsMedical HistoryGranulomatosis with polyangitis (Steffen's)Surgical Historylaparoscopy for cyst removal on [id number] HistoryLaparoscopy for endometriosis10/2018Surgical History Tonsilectomy05/2020Hospitalization Historysee above Primordial Other History of Present illness Narrative* She [...] SH - nonsmoker. No EtOH. No drugs [facility] Work Phone: Reason for referral (narrative)* (Routine)Specialty Diagnoses / ProceduresReferred By ContactReferred To Contact [address] [place] [address] Referral IDStatusReasonStart DateExpiration DateVisits RequestedVisits Authorized * Radiology (Routine) - New RequestSpecialtyDiagnoses / ProceduresReferred By ContactReferred To Contact Procedures [facility] ANESTHESIA Jhonathan Santos MD [address] [place] [address] Referral IDStatusReasonStart DateExpiration DateVisits RequestedVisits [id number] [facility]/ [facility] for [facility] (narrative)No reason for referral information availableAultman Orrville Hospital Work Phone: Summary Purpose Family History No Family History Records FoundUnknown Family Member Name Dates Details Family history of hypertensi on: Father(V17.49, Z82.49) Status:ActiveFamily history of cardiac disorder: Father(V17.49, Z82.49) Status:ActiveFamily history of chronic obstructive pulmonary disease: Father (V17.6, Z82.5) Status:Active Unknown Family Member Name Dates Details Family history of hypertensi on: Father(V17.49, Z82.49) Status:ActiveFamily history of cardiac disorder: Father(V17.49, Z82.49) Status:ActiveFamily history of chronic obstructive pulmonary disease: Father (V17.6, Z82.5) Status:Active Relationship Condition Age at Onset Recorded Date/T flo family member Malignant neoplasm of colon Unknown Not SpecifiedEndometriosisUnknown Relationship Condition Age at Onset Recorded Date/T flo family member Malignant neoplasm of colon Unknown motherEndometriosisUnknowngrandparentMalignant neoplasmUnknown Advance Directives No Advanced Directives Records Found Advance Directive Response Recorded Date/ Time Advance Directives No November 2:24pm TypeDate RecordedPatient RepresentativeExplanationHealthCare Power of Campus Monitor 08/23/2023 6:54 AMAdvance Directives/Living Will08/23/2023 6:54 AMDate Activated Date InactivatedComments08/23/2023 7:39 AMTypeDate RecordedPatient Technology Lead ExplanationHealthCare Power of Attorney08/23/2023 6:54 AMAdvance Directives/Living Will08/23/2023 6:54 AMDate ActivatedDate InactivatedComments 08/23/2023 7:39 AM Chief Complaint * Ref [...] Complaint and Reason for Visit Chief Complaint [facility] wellness Chief Complaint Admit Date wellness screen November 20, 2024 8:04am Reason for Referral SpecialtyDiagnoses / ProceduresReferred By ContactReferred To Contact Diagnoses Kidney donor Procedures ECG Tayla Mazariegos MD, PhD [address] [place] [address] Referral IDStatusReasonStart DateExpiration DateVisits RequestedVisits [id number] Request/[id number] / Procedures Referred By ContactReferred To Contact Diagnoses Kidney donor Procedures MRI ABDOMEN WITH AND WITHOUT CONTRAST [place] MRI, ABDOMEN, COMBO Tayla Mazariegos MD, PhD [address] [place] [address] Referral IDStatusReasonStart DateExpiration DateVisits RequestedVisits [id number] / Procedures Referred By ContactReferred To Contact Diagnoses Kidney donor Procedures ECG Mir Bagley MD [address] [place] [address] Referral IDStatusReasonStart DateExpiration DateVisits RequestedVisits [id number] Request/[id number] / Procedures Referred By ContactReferred To Contact Diagnoses Kidney donor Procedures CT ANGIO LIVING KIDNEY DONOR [place] CT ANGIO, PELVIS, COMBO, INCL IMAGE PROC Tayla Mazariegos MD, PhD [address] [place] [address] Referral IDStatusReasonStart DateExpiration DateVisits RequestedVisits [id number]/29/20243/ Additional Source Comments INFORMATION SOURCE (unrecogn ized section and content) DATE CREATED AUTHOR 02/23/2018 [facility] DATE CREATED AUTHOR AUTHOR'S ORGANIZ ATION 06/01/2021 [facility] DATE CREATED AUTHOR AUTHOR'S ORGANIZ ATION 07/13/2021 [facility] DATE CREATED AUTHOR AUTHOR'S ORGANIZ ATION 08/02/2021 [facility] DATE CREATED AUTHOR AUTHOR'S ORGANIZ ATION 03/04/2022 [facility] DATE CREATED AUTHOR AUTHOR'S ORGANIZ ATION 06/28/2024 [facility] DATE CREATED AUTHOR AUTHOR'S ORGANIZ ATION 07/13/2024 [facility] DATE CREATED AUTHOR AUTHOR'S ORGANIZ ATION 11/22/2024 [facility] REASON FOR VISIT (unrecogniz ed section and content) SpecialtyDiagnoses / ProceduresReferred By ContactReferred To Contact Diagnoses Kidney donor Procedures CT ANGIO LIVING KIDNEY DONOR [place] CT ANGIO, PELVIS, COMBO, INCL IMAGE PROC Tayla Mazariegos MD, PhD [address] [place] [address] Referral IDStatusReasonStart DateExpiration DateVisits RequestedVisits [id number] Donor EvaluationReasonCommentsKidney Donor EvaluationSpecialtyDiagnoses / Procedures Referred By ContactReferred To Contact Diagnoses Kidney donor Procedures MRI ABDOMEN WITH AND WITHOUT CONTRAST [place] MRI, ABDOMEN, COMBO Tayla Mazariegos MD, PhD [address] [place] [address] Referral IDStatusReasonStart DateExpiration DateVisits RequestedVisits [id number] / Procedures Referred By ContactReferred To Contact Diagnoses Kidney donor Kidney donor [Z52.4] Procedures [place] LAPAROSCOPY DONOR NEPHRECTOMY LIVING DONOR DONOR NEPHRECTOMY LIVING DONOR LAPAROSCOPIC Natanael Kay MD, PhD [address] [place] [address] [facility] [address] [place] [address] Referral IDStatusReasonStart DateExpiration DateVisits RequestedVisits [id number] Donor Follow-upReasonComments Gynecologic ExamPt donated Kidney 08/2023. Pt would like to discuss control.Pt happy with current OCP. Menses silent with OCP, take OCP continuously. Denies bowel/bladder/breast concerns.ReasonCommentsAnnual Adult Preventive Visit Care Teams (unrecognized sec tion and content) Team Status: Active Member Role Status Dates Tonia Morin , Primary Care Provider Active Team Status: Inactive Member Role Status Dates Tonia B Morin , DO Primary Care Provider Active Wes Chaves DO CHCAttending ProviderActiveTeam MemberRelationshipSpecialty Start DateEnd Date [facility], Other [address] [place] [address] PCP - Transplant CoordinatorTransplant04/16/23 Fatou Marr DO [address] [place] [address] PCP - GeneralInternal Medicine06/10/23Team MemberRelationshipSpecialtyStart Date End Date [facility] Other [address] PCP - Transplant CoordinatorTransplant04/16/23 Fatou Marr DO [address] [place] [address] PCP - GeneralInternal Medicine06/10/23Team MemberRelationshipSpecialtyStart Date End Date [facility] Other [address] [place] [phone] PCP - Transplant CoordinatorTransplant04/16/23 Fatou Marr DO [address] [place] [address] PCP - GeneralInternal Medicine06/10/23Team MemberRelationshipSpecialtyStart Date End Date [facility] Other [address] [place] [phone] PCP - Transplant CoordinatorTransplant04/16/23 Fatou Marr DO [address] [place] [address] PCP - GeneralInternal Medicine06/10/23Team MemberRelationshipSpecialtyStart Date End Date [facility] Other [address] [place] [phone] PCP - Transplant CoordinatorTransplant04/16/23 Fatou Marr DO [address] [place] [address] PCP - GeneralInternal Medicine06/10/23Team MemberRelationshipSpecialtyStart Date End Date [facility] Other [address] [place] [phone] PCP - Transplant CoordinatorTransplant04/16/23 Fatou Marr DO [address] [place] [address] PCP - GeneralInternal Medicine06/10/23Team MemberRelationshipSpecialtyStart Date End Date [facility] Other [address] [place] [phone] PCP - Transplant CoordinatorTransplant04/16/23 Fatou Marr DO [address] [place] [address] PCP - GeneralInternal Medicine06/10/23Team MemberRelationshipSpecialtyStart Date End Date [facility] Other [address] [place] [address] PCP - Transplant CoordinatorTransplant04/16/23 Fatou Marr DO [address] [place] [address] PCP - GeneralInternal Medicine06/10/23Team MemberRelationshipSpecialtyStart Date End Date Fatou Marr DO PCP - GeneralInternal Medicine10/15/22 Fatou Marr DO [address] [place] [address] PCP - [facility] [employer]11/10/1511Team MemberRelationshipSpecialty Start DateEnd Date [facility] Other [address] [place] [address] PCP - Transplant CoordinatorTransplant04/16/23 Fatou Marr DO [address] [place] [phone] PCP - GeneralInternal Medicine06/10/23Team MemberRelationshipSpecialtyStart Date End Date Fatou Marr DO [address] [place] [address] PCP - GeneralInternal Medicine10/15/22 Fatou Marr DO [address] [place] [address] PCP - [facility] [employer]11/10/1511Team MemberRelationshipSpecialty Start DateEnd Date Fatou Marr DO [address] [place] [address] [facility] - [facility]10/15/22 Fatou Marr DO [address] [place] [address] PCP - [facility] [employer]11/10/1511Team MemberRelationshipSpecialty Start DateEnd Date ChristopherFatou Simms DO [address] [place] [address] PCP - [facility]10/15/22 AshwinFatou Simms DO [address] [place] [address] PCP - [facility]11/10/1511 Team Status: Inactive Member Role Status Dates Tonia Morin , Primary Care Provider Active Start: November 20, 2024 End: November 20norm Naranjo [facility] DO [facility]ITALAttending ProviderActive Start: November 20, 2024 End: November 20, 2024 Goals (unrecognized section and content) Goals may be documented in a n alternate section Scheduled Active and Recently Administ ered Medications (unrecognized section and content) Medication Order08/22//// Acetaminophen (TYLENOL) tablet 650 mg 650 mg, Oral, EVERY 6 HOURS, First dose on Sat08/23/23 at 1800, Until Discontinued, Maximum dose ofacetaminophen is 4000 mg from all sources in 24 hours., Post-op/Post-Proc * 1733 (Given - Provider: Zakia Moya RN) * 2318 (Given - Provider: Yesica Stallworth RN) * 0607 (Given - Provider: Yesica Stallworth RN) * 1102 (Given - Provider: Zakia Moya RN) * 1701 (Given - Provider: Zakai Moya RN) * 2344 (Given - Provider: Yesica tSallworth RN) * 0624 (Given - Provider: Yesica Stallworth RN) * 1108 (Given - Provider: Crystal Cao RN) * 1800 (Canceled Entry - Provider: System Discharge - Comment: Automatically canceled at discontinue of medication order) Docusate (COLACE) capsule 100 mg 100 mg, Oral, 2 TIMES DAILY, First dose on Sat08/23/23 at 1700, Until Discontinued, Post-op/Post-Proc * 1733 (Given - Provider: Zakia Moya RN) * 0831 (Given - Provider: Zakia Moya RN) * 170 (Given - Provider: Zakia Moya RN) * 0926 (Given - Provider: Crystal Cao RN) * 1700 (Canceled Entry - Provider: System Discharge - Comment: Automatically canceled at discontinue of medication order) Scnjvmrwouw-Qqwhmcjnx-Einnif 200-62.5-25 MCG/ACT AEPB 1 puff ++Patient supplied++ 1 puff, Inhalation, DAILY, First dose on Sat08/24/23 at 1115, Until Discontinued * 0900 (Given - Provider: Zakia Moya RN - Comment: Pt took after getting the okay from Dr. Mazariegos. Took prior to RN entering room) * 0926 (Given - Provider: Crystal Cao RN) Gabapentin (NEURONTIN) capsule 100 mg 100 mg, Oral, DAILY AT BEDTIME, First dose on Sat08/23/23 at 2100, Until Discontinued, Post-op/Post-Proc * 2018 (Given - Provider: Yesica Stallworth, CHANDRAKANT) * 193 (Given - Provider: Yesica Stallworth RN) Heparin injection 5,000 Units 5,000 Units, Subcutaneous, EVERY 8 HOURS (0800/1600/2200), First dose on Sat08/23/23 at 1600, UntilDiscontinued, Post-op/Post-Proc * 1700 (Not Given - Provider: Zakia Moya RN - Reason: Other - Comment: received dose at 1200) * 2018 (Given - Provider: Yesica Stallworth RN) * 0831 (Given - Provider: Zakia Moya, CHANDRAKANT) * 1701 (Given - Provider: Zakia Moya, RN) * 2212 (Given - Provider: Yesica Stallworth RN) * 0926 (Given - Provider: Crystal Cao RN) * 1600 (Canceled Entry - Provider: System Discharge - Comment: Automatically canceled at discontinue of medication order) Ketorolac (TORADOL) injection 15 mg (COMPLETED) 15 mg, Intravenous, EVERY 6 HOURS, 8 doses, First dose on Sat08/23/23 at 1800, Last dose on Sat08/25/23 at 1200, Post-op/Post-Proc * 1734 (Given - Provider: Zakia Moya RN) * 0043 (Given - Provider: Yesica Stallworth RN) * 0608 (Given - Provider: Yesica Stallworth RN) * 1102 (Given - Provider: Zakia Moya RN) * 1702 (Given - Provider: Zakia Moya RN) * 2344 (Given - Provider: Yesica Stallworth RN) * 0624 (Given - Provider: Yesica Stallworth RN) * 1108 (Given - Provider: Crystal Cao, CHANDRAKANT) norethindrone-ethinyl estradiol (MICROGESTIN 03/30) 1-20 MG-MCG tablet ++Patient supplied++ 1 tablet, Oral, DAILY, First dose on Sat08/24/23 at 1215, Until Discontinued * 0900 (Given - Provider: Zakia Moya RN - Comment: Pt took after getting the okay from Dr. Mazariegos. Took prior to RN entering room) * 0926 (Given - Provider: Crystal Cao, CHANDRAKANT) Promethazine (PHENERGAN) tablet 25 mg (COMPLETED) 25 mg, Oral, ONCE, 1 dose, On Sat08/25/23 at 1300 * 1533 (Given - Provider: Crystal Cao, CHANDRAKANT) Scopolamine (TRANSDERM-SCOP) patch 1 patch(Linked Group 1) 1 patch, Transdermal, ONCE, 1 dose, On Sat08/23/23 at 0945, Apply patch to site behind the ear. Rotate sites for each application. Do not cut or alter patch. Each patch delivers 1 mg over 72 hours., Pre-op/Pre-Proc * 0938 (Patch Applied - Provider: Anum Wyatt, CHANDRAKANT) * 1637 (Due: Patch Removed - Provider: System Discharge - Comment: Time automatically adjusted from order being discontinued) Senna (SENOKOT) tablet 8.6 mg 8.6 mg, Oral, 2 TIMES DAILY, First dose on Sat08/23/23 at 1700, Until Discontinued, Post-op/Post-Proc * 1734 (Given - Provider: Zakia Moya RN) * 0831 (Given - Provider: Zakia Moya RN) * 1701 (Given - Provider: Zakia Moya RN) * 0926 (Given - Provider: Crystal Cao RN) * 1700 (Canceled Entry - Provider: System Discharge - Comment: Automatically canceled at discontinue of medication order) Medication Order/ Sodium chloride 0.9% IV solution (CANCELED) Intravenous, at 75 mL/hr, CONTINUOUS, Starting on Sat08/23/23 at 0745, Until Sat08/23/23 at 1550, Pre-op/Pre-Proc * 0835 ($$New Bag$$ - Provider: Tonie Avalos RN) * 1626 (Stopped - Provider: Zakia Moya RN) Sodium chloride 0.9% IV solution (CANCELED) Intravenous, at 100 mL/hr, CONTINUOUS, Starting on Sat08/23/23 at 1600, Until Sat08/24/23 at 0820, Post-op/Post-Proc * 1612 ($$New Bag$$ - Provider: Batool Corado RN) * 2320 (Rate/Dose Verify - Provider: Zakia Moya, CHANDRAKANT) * 0618 (Stopped - Provider: Zakia Moya RN) * 0618 ($$New Bag$$ - Provider: Yesica Stallworth RN) * 0833 (Stopped - Provider: Zakia Moya RN) Medication Order// ceFAZolin (ANCEF) 2 g in dextrose 100 mL premix IVPB (COMPLETED) 2 g, Intravenous, Administer over 30 Minutes, MINIBUS DRIVER TO PROCEDURE, 1 dose, Starting on Sat08/23/23at 0739, Until Sat08/23/23 at 1218, Other, surgical prophylaxis, Initiate antibiotic [id number] minutes prior to surgical incision and complete administration prior to surgical incision., Pr e-op/Pre-Proc * 1203 ($$New Bag$$ - Provider: Aristides George APRN-STOKER INSTALLER) Heparin injection 5,000 Units (COMPLETED) 5,000 Units, Subcutaneous, MINIBUS DRIVER TO PROCEDURE, 1 dose, Starting on Sat08/23/23 at 0739, Until Sat08/23/23 at 1142, Other, Pre-op/Pre-Proc * 1142 (Given - Provider: Isabel Snell, CHANDRAKANT) HYDROmorphone (DILAUDID) injection 0.5 mg (CANCELED) 0.5 mg, Intravenous, EVERY 10 MINUTES NEEDED, 8 doses, Starting on Sat08/23/23 at 1453, Until Sat08/23/23 at 1550, Moderate Pain, Severe Pain, May give a total of 4mg in PACU., Recovery * 1515 (Given - Provider: Lissette Weaver RN) Morphine (PF) injection 2 mg ()(Linked Group 2) 2 mg, Intravenous, EVERY 4 HOURS NEEDED, Starting on Sat08/23/23 at 1557, Until Sat08/24/23 at 1556, Moderate Pain, Severe Pain, 2nd Line Pain Control, Use as initial dose. Higher dose may be administered if lower dose was previously documented as ineffective and did not result in adverse effects (RR<10, decrease in level of consciousness). For severe pain IF patient unable to tolerate PO.,Post-op/Post-Proc * 1607 (Given - Provider: Batool Corado RN) Ondansetron 4mg/2ml (ZOFRAN) injection 4 mg 4 mg, Intravenous, EVERY 4 HOURS NEEDED, Starting on Sat08/23/23 at 1557, Until Sat08/25/23 at 1837, Nausea / Vomiting, 1st Line, Post-op/Post-Proc * 2130 (Given - Provider: Yesica Stallworth, CHANDRAKANT) * 2222 (Given - Provider: Yesica Stallworth, CHANDRAKANT) simethicone (MYLICON) chewable tablet 80 mg 80 mg, Oral, EVERY 4 HOURS NEEDED, Starting on Sat08/23/23 at 1557, Until 08/25/23 at 1837, Gas, Post-op/Post-Proc * 1746 (Given - Provider: Zakia Moya RN) * 0831 (Given - Provider: Zakia Moya RN) traMADol (ULTRAM) tablet 50 mg 50 mg, Oral, EVERY 6 HOURS NEEDED, Starting on Sat08/23/23 at 1557, Until 08/25/23 at 1837, Mild Pain, Moderate Pain, First line pain, Post-op/Post-Proc * 1745 (Given - Provider: Zakia Moya RN) * 0831 (Given - Provider: Zakia Moya RN) Order Group 1: Scopolamine (TRANSDERM-SCOP) patch 1 [...] severe pain IF patient unable to tolerate PO.,Post-op/Post-Proc Or Morphine sulfate (PF) injection 4 mg () 4 mg, Intravenous, EVERY 4 HOURS NEEDED, Starting on Sat08/23/23 at 1557, Until 08/24/23 at 1556, Moderate Pain, Severe Pain, 2nd Line Pain Control, Higher dose may be administered if lower dose was previously documented as ineffective and did not result in adverse effects (RR<10, decreasein level of consciousness). Decrease back to lower [...] BE BASED ON THE PRIMARY CLINICAL RECORDS. [facility]. provides no warranty or guarantee of the accuracy or completeness of information in this document.
[2025-01-06 14:32] LABS: Hematocrit 45.0 % (36.0-48.0); Hemoglobin 14.5 g/dL (12.0-16.0); Mean Corpuscular HGB Conc 32.2 g/dL (29.9-35.2); Mean Corpuscular Hemoglobin 28.7 pg (26.7-34.0); Mean Corpuscular Volume 88.9 fL (81.0-99.0); Platelet Count 451 10^3/uL (150-450); Red Blood Count 5.06 10^6/uL (4.20-5.40); White Blood Count 8.2 10^3/uL (4.0-11.0)
[2025-01-06 15:34] LABS: Alanine Aminotransferase 26 U/L (14-59); Albumin Globulin Ratio 1.1; Albumin Level 4.0 g/dL (3.4-5.0); Alkaline Phosphatase 66 U/L (46-116); Anion Gap 13.8; Aspartate Amino Transferase 22 U/L (15-37); Blood Urea Nitrogen 12.0 mg/dL (7.0-18.0); Calcium 9.0 mg/dL (8.5-10.1); Carbon Dioxide 26.2 mmol/L (21.0-32.0); Chloride 102 mmol/L (98-107); Estimated GFR (African America >60 (>=60 mL/min/1.73m^2); Estimated GFR (Non-African Ame 55 (>=60 mL/min/1.73m^2); Globulin 3.7 g/dL; Glucose 84 mg/dL (74-106); Potassium 4.0 mmol/L (3.5-5.1); Sodium 138 mmol/L (136-145); Thyroid Stimulating Hormone 1.399 uIU/mL (0.358-3.740); Total Protein 7.7 g/dL (6.4-8.2)
== END 2025-01-06 13:37 | disposition home or self-care (01) ==
PROVIDERS: PCP Internal Medicine; Visit Provider Internal Medicine
DX: Z52.4 Kidney donor (principal); R79.89 Other specified abnormal findings of blood chemistry; R76.0 Raised antibody titer; R51.9 Headache, unspecified
CPT/HCPCS: 36415; 80053; 84443; 85027; 85652; 86140

== ENCOUNTER 2025-01-15 13:34 | Outpatient (OUT) | payer OTHER, SELFPAY ==
--- OUTSIDE RECORDS SUMMARY | 2024-12-30 11:00 | XMS_ITS ---
Author Organization [facility] in [place] Address [address] [place] [address] Care Team Providers Care Cigarette Tipper Name Role Phone Fatou Kelly DO Primary Care Provider Un available Pedro Hewitt Unavailable [phone] REASON FOR VISIT 1YEAR-ASTHMA, PLMD Encounters Encounter Location Date Provider Diagnosis Pulmonary Medicine [address] [address] 12/30/2024 Pedro Hewitt Plan Of Treatment No Information Progress Notes * Chrystal MASON MDOB:[birth year] (39 yo F)Acc No.[id number]:12/30/2024 UNLOCKED PROGRESS NOTE Follow Up Patient: Dominic Chrysatl BRADFORD :?PRINCE WalkerOB:1985???Age:39 Y ???Sex:FemaleDate:12/30/2024Phone:[phone]:[address] [place] [address], [place], [place]Jai:Fatou Kelly DO Subjective: * Chief Complaints: * 1 . 1YEAR-ASTHMA, PLMD. * Medical History: Objective: * Vitals: Assessment: Plan: * Treatment: * * Electronic signature of Pedro Hewitt DO on 01/15/2025 at 01:37 PM ESTSign off status: PendingVisit Status:?CANC (Cancelled) * Provider: Nicol Hewitt DO Date: Generated for Printing/Faxing/eTransmitting on:?01/15/2025 01:37 PM EST
--- OUTSIDE RECORDS SUMMARY | 2025-01-05 08:45 | XMS_ITS | Encounter Summary ---
Author Organization [facility] Address [address] [place] [address] Care Team Providers Care Consumer Educator Name Role Phone Fatou Kelly DO Primary Care Provider Fatou Kelly DO Unavailable [phone] Reason for Referral * Imaging (Routine) - AuthorizedSpecialtyDiagnoses / ProceduresReferred By ContactReferred To ContactRadiology Diagnoses Positive P-ANCA titer Elevated platelet count New onset headache Procedures MR brain w and wo contrast routine Fatou Kelly DO [address] [place] [address] Phone: tel: fax: [facility] Schedule fax: Referral IDStatusReasonStart DateExpiration DateVisits RequestedVisits [id number]/28/20254/ Reason for Visit * ReasonCommentsMigraine Encounter Details DateTypeDepartmentCare Team (Latest Contact Info)Rtkpnsztpkp42/28/2025 9:45 AM EDTOffice Visit [facility] [address] [place] [address] Fatou Kelly DO [address] [place] [address] New onset headache (Primary Dx); Positive P-ANCA titer; Elevated platelet count; Episodic paroxysmal hemicrania, not intractable; Kidney donor Social History Tobacco UseTypesPacks/DayYears UsedDateSmoking Tobacco: NeverSmokeless Tobacco: Never Tobacco Cessation:Counseling Given: Not Answered Alcohol UseStandard Drinks/WeekCommentsNever0 (1 standard drink = 0.6 oz pure alcohol)Caffeine intake: noneCommentsUnknownSex and Gender Information ValueDate RecordedSex Assigned at KlinwAfcezk65/31/2023 10:34 AM EDTLegal Sex Egonlp3605/23/2022 6:46 PM EDTGender PzsuawgjIkkqip04/31/2023 10:34 AM EDTSexual FbvrsnvuxwaEmkentaz49/31/2023 10:34 AM EDTOccupationIndustryJob Start DateJob End DatePhysical Therapist AssistantNot on fileNot on fileNot on filedocumented as of this encounter Last Filed Vital Signs Vital SignReadingTime TakenCommentsBlood Oslcrpvf278/7401/05/2025 10:03 AM EDT Hqudx794401/05/2025 10:03 AM EDTTemperature--Respiratory Rate--Oxygen Saturation 98%01/05/2025 10:03 AM EDTInhaled Oxygen Concentration--Pibusd49.7 kg (140 lb 6.4 oz)01/05/2025 10:03 AM VZCKdwnll482.5 cm (5' 2 )01/05/2025 10:03 AM EDTBody Mass Index25.6801/05/2025 10:03 AM EDTdocumented in this encounter Progress Notes * Fatou Kelly DO - 01/05/2025 1:36 PM EDTAssociated Problem(s): Episodic paroxysmal hemicrania, not intractable Discussed using meds for acute treatment of migraine, as well as med for prophylaxis (briefly). At this time, would not start routine/daily medication. Samples of Nurtec provided. I did advise her that we may have to try a generic triptan per her insurance. But if she feels the Nurtec is helping, she will let me know and I will send in Rx to see is insurance will cover. * Fatou Kelly DO - 01/05/2025 1:23 PM EDTAssociated Problem(s): Positive P-ANCA titer Since having this condition predisposes her to microscopic polyangiitis and other forms of vasculitis, need to assess for this as a cause for her new (worsening) headaches. Will get labs and MRI (with and without contrast) to better assess for evidence of inflammation * Fatou Kelly DO - 01/05/2025 9:45 AM EDT Images from the original note were not included. Subjective Patient ID: Chrystal Mason (: 1985) is a 39 y.o. female who presents for Migraine. HPI: Chrystal is being seen for an acute visit today. She scheduled the appt to discuss (migraine) headaches. She does not currently have documented hx of Migraines/headaches. Today, she reports she has been having headaches for several years, but has mainly discussed with her [facility] as she has seemed to correlate the migraines with her control. She has switched brands over the years to try to help with her headaches. She reports she is (recently) having at least 3-4 migraines a week that can last all day and are debilitating. In the last 6-9 months she has been having more frequently and more severe. This past Saturday (12/30/24), she experienced numbness on right side of face and lips associated with the headache. Tylenol doesn't help the migraine. She does find that a cold compress and a dark room do help. She is not supposed to take NSAIDs since she only has 1 kidney now. So while she would have taken Exedrine migraine in the past, she stopped after donating her kidney. Current Outpatient Medications Medication Instructions acetaminophen (TYLENOL) 325 mg, Every 6 hours albuterol HFA 90 mcg/act inhaler 2 puffs, Every 4 hours PRN cholecalciferol (Vitamin D-3) 25 MCG (1000 UT) capsule 1 capsule, Every 24 hours Pnzlgefwxnf-Ybplbjcaa-Zslpku (Trelegy Ellipta) 200-62.5-25 MCG/ACT aerosol powder 1 puff, Daily Melatonin 5 mg, Nightly PRN Multiple Vitamins-Minerals (MULTIVITAMIN GUMMIES ADULTS PO) 1 tablet, Daily norethindrone-ethinyl estradiol (Loestrin 03/30, ,) 1-20 MG-MCG tablet 1 tablet, Oral, Daily, Takecontinuous. Nurtec 75 mg, Oral, Daily PRN Allergies[1] Problem List[2] Social History[3] Review of Systems Constitutional: Negative for activity change, appetite change, fatigue and unexpected weight change. 02/2024: She reports that she does not feel like her pre-transplant self (ie energy/stamina), butis slowly improving HENT: Negative for ear pain, hearing loss, postnasal drip, sinus pain, trouble swallowing and voicechange. Eyes: Negative for photophobia, pain and visual disturbance. Respiratory: Negative for cough, shortness of breath and wheezing. Cardiovascular: Negative for chest pain, palpitations and leg swelling. Gastrointestinal: Negative for abdominal distention, abdominal pain, blood in stool and nausea. Genitourinary: Negative for difficulty urinating, dysuria and hematuria. Musculoskeletal: Negative for arthralgias, back pain, gait problem and joint swelling. Skin: Negative for rash and wound. Neurological: Negative for dizziness, tremors, speech difficulty, weakness, numbness and headaches. Psychiatric/Behavioral: Negative for confusion, decreased concentration, hallucinations and sleep disturbance. Endocrine: Negative for polydipsia, polyphagia and polyuria. Allergic/Immunologic: Negative for immunocompromised state. Objective Vital signs: BP 136/74 Pulse 81 Ht 5' 2 Wt 140 lb 6.4 oz SpO2 98% BMI 25.68 kg/m?? Physical Exam Constitutional: General: She is not in acute distress. Appearance: Normal appearance. HENT: Head: Normocephalic. Eyes: General: No scleral icterus. Extraocular Movements: Extraocular movements intact. Conjunctiva/sclera: Conjunctivae normal. Neck: Vascular: No carotid bruit. Cardiovascular: Rate and Rhythm: Normal rate and regular rhythm. Heart sounds: No murmur heard. Pulmonary: Effort: Pulmonary effort is normal. No respiratory distress. Breath sounds: Normal breath sounds. No wheezing or rhonchi. Musculoskeletal: General: No swelling. Normal range of motion. Cervical back: Normal range of motion. Skin: General: Skin is warm and dry. Coloration: Skin is not jaundiced. Findings: No rash. Neurological: General: No focal deficit present. Mental Status: She is alert and oriented to person, place, and time. Motor: No weakness. Gait: Gait normal. Psychiatric: Mood and Affect: Mood normal. Thought Content: Thought content normal. Judgment: Judgment normal. Assessment/Plan Problem List Items Addressed This Visit Positive P-ANCA titer Current Assessment & Plan Since having this condition predisposes her to microscopic polyangiitis and other forms of vasculitis, need to assess for this as a cause for her new (worsening) headaches. 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 She reports the recipient (a friend of hers) is doing very well. -She will be followed by the Transplant Team for 2 years Relevant Orders Comprehensive metabolic panel TSH Episodic paroxysmal hemicrania, not intractable Overview 12/2024- samples of Nurtec Current Assessment & Plan Discussed using meds for acute treatment of migraine, as well as med for prophylaxis (briefly). At this time, would not start routine/daily medication. Samples of Nurtec provided. I did advise her that we may have to try a generic triptan per her insurance. But if she feels the Nurtec is helping, she will let me know and I will send in Rx to see is insurance will cover. Relevant Medications Rimegepant Sulfate (Nurtec) 75 MG tablet dispersible Other Visit Diagnoses New onset headache - Primary Relevant Orders TSH Sedimentation rate, automated C-reactive protein MR brain w and wo contrast routine Elevated platelet count Relevant Orders HEMOGRAM CBC WITHOUT DIFF ([facility]) Comprehensive metabolic panel TSH MR brain w and wo contrast routine Her sx could be related to migraines, but she has risk factors for vasculitis, so this needs to be investigated (labs and MRI). Will follow up with her as testing results available. Health Maintenance Topic Date Due MMR Vaccines (1 of 1 - Standard series) Never done DTaP/Tdap/Td Vaccines (2 - Tdap) 03/07/1999 Varicella Vaccines (1 of 2 - 13+ 2-dose series) Never done Hepatitis B Vaccines (1 of 3 - 19+ 3-dose series) Never done Pneumococcal Vaccine: Pediatrics (0 to 5 Years) and At-Risk Patients (6 to 64 Years) (1 of 2 - PCV)Never done Influenza Vaccine (1) 11/09/2024 COVID-19 Vaccine (1 - season) Never done Cervical Cancer Screening 12/19/2027 HPV Vaccines Completed HIB Vaccines Aged Out IPV Vaccines Aged Out Hepatitis A Vaccines Aged Out Meningococcal Vaccine Aged Out Rotavirus Vaccines Aged Out Meningococcal B Vaccine Aged Out Immunization History Administered Date(s) Administered HPV, Quadrivalent 12/24/2008, 02/28/2009, 07/01/2009 Td (adult), 5 Lf tetanus toxoid, preservative free, adsorbed 02/07/1999 I spent >30 minutes on the date of the service to complete this exam. -This included: time spentpreparing to see the patient by reviewing last office note and chronic conditions, any notes from other providers, talking to and examining the patient, placing orders and documenting in the chart after the visit. -Protocols reviewed and updated. A collaborative plan of care has been created for pt regarding specific health concerns. -Any barriers to care have been identified and addressed. -Any part of this document that has been added/copied from other documents has been reviewed for accuracy and updated as appropriate at the time of the patient encounter. -AVS is available to patient at completion of the visit. -Follow up with Dr. Fatou Kelly in about 7 weeks (around 02/25/2025), annual preventive visit as previously scheduled. Fatou Kelly D.O. Board Certified Acupressurist [1] No Known Allergies [2] Patient Active Problem List Diagnosis Major depressive disorder, single episode, unspecified Mild intermittent asthma without complication (HCC) Endometriosis Periodic limb movement disorder Positive P-ANCA titer Multiple pulmonary nodules Hypersomnia Chronic pain syndrome Irritable bowel syndrome with predominant constipation Kidney donor Episodic paroxysmal hemicrania, not intractable [3] Social History Tobacco Use Smoking status: Never Smokeless tobacco: Never Substance Use Topics Alcohol use: Never Comment: Caffeine intake: none Drug use: Never documented in this encounter Plan of Treatment DateTypeDepartmentCare Team (Latest Contact Info)Rlgcxdhylny96/03/2025 3:30 PM ESTOffice Visit [facility]dy[facility]lington[facility] [address] [place] [phone] May Thomas, DO [address] [place] [address] 02/25/2025 3:30 PM ESTOffice Visit [facility] [address] [place] [phone] Fatou Kelly, [address] [place] [address] 08/25/2025 10:00 AM EDTOffice Visit [facility] [address] [place] [phone] May Thomas, DO [address] [place] [address] NameTypePriorityAssociated DiagnosesOrder ScheduleHEMOGRAM CBC WITHOUT DIFF ([facility])LabRoutine Positive P-ANCA titer Elevated platelet count Expected: 06/28/2025 (Approximate), Expires: 01/05/2026omprehensive metabolic panelLabRoutine Elevated platelet count Kidney donor Expected: 01/05/2025 (Approximate), Expires: 01/05/2026TSHLabRoutine Positive P-ANCA titer Elevated platelet count New onset headache Kidney donor Expected: 01/05/2025 (Approximate), Expires: 01/05/2026Sedimentation rate, automatedLabRoutine Positive P-ANCA titer New onset headache Expected: 01/05/2025, Expires: 01/05/2026-reactive proteinLabRoutine Positive P-ANCA titer New onset headache Expected: 01/05/2025 (Approximate), Expires: 01/05/2026MR brain w and wo contrast routineImagingRoutine Positive P-ANCA titer Elevated platelet count New onset headache Expected: 01/05/2025, Expires: 01/05/2026documented as of this encounter Visit Diagnoses Diagnosis New onset headache- Primary Headache Positive P-ANCA titer Elevated platelet count Essential thrombocythemia Episodic paroxysmal hemicrania, not intractable Kidney donor documented in this encounter Care Teams Team MemberRelationshipSpecialtyStart DateEnd Date Fatou Kelly DO [address] [place] [address] PCP - GeneralInternal Medicine10/15/22 Fatou Kelly DO [address] [place] [address] PCP - Medical [employer]11/10/1511documented as of this encounter
--- OUTSIDE RECORDS SUMMARY | 2025-01-05 15:00 | XMS_ITS | Encounter Summary ---
Author Organization [facility] Address [address], [address] [place] [address] Care Team Providers Care Hand Upper And Bottom Lacer Name Role Phone Fatou Christopher MD Primary Care Provider [phone] Reason for Visit * ReasonCommentsFollow-upPatient presents for a follow up for Asthma. Patient is using Trelegy daily. Encounter Details DateTypeDepartmentCare Team (Latest Contact Info)Jerofstqizq13/28/2025 4:00 PM EDTOffice Visit [facility] Pulmonology [address] [place] [address] [address] [place] [address] [facility], [address] [place] [address] Mild persistent asthma, uncomplicated (Primary Dx); P-ANCA and MPO antibodies positive; PLMD (periodic limb movement disorder); Multiple pulmonary nodules; FCI (current) use of inhaled steroids Social History Tobacco UseTypesPacks/DayYears UsedDateSmoking Tobacco: NeverSmokeless Tobacco: NeverAlcohol UseStandard Drinks/WeekCommentsNo0 (1 standard drink = 0.6 oz pure alcohol)socialCommentsNoSex and Gender InformationValueDate RecordedSex Assigned at JulwiNplobi48/03/2025 2:35 PM EDTLegal HswHchmcy91/12/2013 2:50 AM ESTGender YhnjyhtsIwdjzl48/03/2025 2:35 PM EDTSexual OrientationStraight 12/11/2024 2:36 PM 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 Not on fileNot on fileNot on filedocumented as of this encounter Last Filed Vital Signs Vital SignReadingTime TakenCommentsBlood Jncmgsrw377/6801/05/2025 4:05 PM EDT Chksk053301/05/2025 4:05 PM YHMYnttzkywyhx99.1 ??C (97 ??F)01/05/2025 4:05 PM EDT Respiratory Yyzc0054 4:05 PM EDTOxygen Lwspktokoc46%01/05/2025 4:05 PM EDTon room airInhaled Oxygen Concentration--Ohztjj05.8 kg (134 lb)01/05/2025 4:05 PM SJTQyxyrs204.9 cm (5' 1 )01/05/2025 4:05 PM EDTBody Mass Index25.32 01/05/2025 4:05 PM EDTdocumented in this encounter Patient Instructions * Patient Instructions* Pedro Hewitt DO - 01/05/2025 4:33 PM EDT Stop Trelegy and use Breo for 1-2 months. If your breathing is doing well, contact the office and we can discuss further step-down therapy. documented in this encounter Progress Notes * Pedro Hewitt DO - 01/05/2025 4:45 PM EDT Images from the original note were not included. Date of encounter: 01/05/25 Chrystal Mason 1985 (39 y.o.) [address] [place] [id number] Chrystal Sonali McfarlandRipplemead was seen today in the office by me. Below is my assessment and plan of the patient: Assessment & Plan Mild persistent asthma, uncomplicated Asthma has been controlled for nearly 2 years at this point. Last year, discussed de-escalating therapy from Trelegy 200. Patient voiced she is ready to do so. She believes she has Breo samples at home. She was to change that Breo sample for 1 to 2 months and if she continues to be breathing fine, she is to contact the office regarding further de-escalation therapy. P-ANCA and MPO antibodies positive Patient has seen several student services vice president who have been unable to diagnose her with any particular disease process or syndrome. There are no eosinophils which essentially rules out eosinophilic granulomatosis with polyangiitis (EGPA, formerly known as Churg-Enrique). Question microscopic polyangiitis-I am unclear what else I can do for her at this point as I am not a student services vice president. She voiced appreciation of my assistance. PLMD (periodic limb movement disorder) Limb movement index 44.7x/hr - PSG 01/30/2022 Prior treatments: Gabapentin (Side effects: LEAD RADIATION THERAPIST, dyspnea), Pramipexole (ineffective) Holding off on any further treatment at this time. Multiple pulmonary nodules Unchanged 6mm RUL and RLL nodules compared 12/24/2022 to 12/26/2021 and 04/15/2021. According to current [place] Society guidelines, no further imaging is required FCI (current) use of inhaled steroids The patient was counseled to rinse and gargle after use of her steroid- containing inhaler to reducethe risk of oral candidiasis and other potential adverse effects. Planned follow-up: Return in about 1 year (around 01/05/2026) for Asthma. Data: Alpha-1 antitrypsin (AAT) -Screening test: 12/11/2022 -Genotype: MM PFT: -Date: 01/23/2021 -Location: [facility] -FEV1/FVC: 74% -FEV1: 96% -FVC: 110% -Bronchodilator response: Positive in IWU10-02% -RV: 129% -T% -DLCO: 156% -Flow-volume loop: Scooping of expiratory limb Subjective: Chrystal Mason was previously established with me at [facility] and is now establishing with me at [facility]. She was last seen by me on 12/31/2023. Her records from [facility] were reviewed. She states her breathing has been doing well over the past year. She remains on Trelegy 200 and denies any adverse effects. She is not having to use albuterol. She is very happy with her asthma control. She continues to complain of fatigue and pain, along with a malar rash, migraines, and other symptoms. She has already been evaluated by several rheumatologists who have not been able to diagnose herwith anything concretely, despite positive p-ANCA and MPO. She is frustrated about the lack of diagnosis, even with a strong family history of connective tissue diseases. However, she voiced appreciation of the assistance this office provided on her behalf. Review of systems: Review of Systems Constitutional: Positive for fatigue. Negative for diaphoresis and fever. HENT: Negative for congestion and nosebleeds. Respiratory: Negative for cough, chest tightness, shortness of breath and wheezing. Cardiovascular: Negative for chest pain. Musculoskeletal: Positive for myalgias. Skin: Positive for color change (digits can become pale/white) and rash (malar). Neurological: Positive for numbness (right side of face). Exam: BP 122/68 (BP Site: Left Upper Arm, Patient Position: Sitting, BP Cuff Size: Medium Adult) Pulse 78 Temp 97 ??F (36.1 ??C) (Infrared) Resp 16 Ht 1.549 m (5' 1 ) Wt 60.8 kg (134 lb) SpO2 99% Comment: on room air BMI 25.32 kg/m?? Physical Exam Constitutional: Appearance: Normal appearance. HENT: Mouth/Throat: Mouth: Mucous membranes are moist. Pharynx: Oropharynx is clear. Comments: Mallampati III. Macroglossia. Cardiovascular: Rate and Rhythm: Normal rate and regular rhythm. Pulmonary: Effort: Pulmonary effort is normal. No respiratory distress. Breath sounds: Normal breath sounds. No wheezing or rhonchi. Skin: General: Skin is warm. Findings: No erythema or rash. Neurological: Mental Status: She is alert. Psychiatric: Mood and Affect: Mood normal. Behavior: Behavior normal. 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 Multiple Vitamin (MULTI-VITAMIN DAILY PO) Take 1 tablet by mouth daily. Cyanocobalamin (VITAMIN B-12) 2000 MCG TBCR Take 1 tablet by mouth daily. (Patient not taking: Reported on 01/05/2025) naproxen sodium (ANAPROX DS) 550 MG tablet Take 1 tablet by mouth 2 times daily (with meals) for 20days. (Patient not taking: Reported on 01/05/2025) 40 tablet 11 No current facility-administered medications for this visit. Immunization History Administered Date(s) Administered DTP 1985, [birth year], 11/14/1990, 07/04/1992 Hepatitis B 02/07/1999, 03/09/1999, 08/10/1999 Hib, unspecified 12/04/1988 MMR, PRIORIX, M-M-R II, (age 12m+), SC, 0.5mL 10/31/1988, 02/07/1999 PPD Test 06/08/1988, 05/27/1990, 10/06/2007, 10/06/2007 Tetanus 02/07/1999 Social History Tobacco Use Smoking status: Never Smokeless tobacco: Never Substance Use Topics Alcohol use: No Comment: social Family History Problem Relation Age of Onset Crohn's Disease Maternal Aunt Cancer Paternal Aunt 45 colon cancer Early Maternal Grandfather Cancer Maternal Grandfather bladder Heart Disease Neg Hx An electronic signature was used to authenticate this note. -Pedro Hewitt DO, PharmD, FACOI documented in this encounter Plan of Treatment DateTypeDepartmentCare Team (Latest Contact Info)Gmtpxyvfcho68/27/2026 4:00 PM EDTOffice Visit [facility] Pulmonology [address], [address] [place] [id number] Pedro Hewitt DO [address] [place] [address] F/U 1 YR ASTHMAdocumented as of this encounter Visit Diagnoses Diagnosis Mild persistent asthma, uncomplicated- Primary Unspecified asthma P-ANCA and MPO antibodies positive Other and unspecified nonspecific immunological findings PLMD (periodic limb movement disorder) Periodic limb movement disorder Multiple pulmonary nodules Other nonspecific abnormal finding of lung field medical terminologist (current) use of inhaled steroids documented in this encounter Care Teams Team MemberRelationshipSpecialtyStart DateEnd Date Fatou Christopher MD [address] [place] [address] PCP - GeneralInternal Legbffiu01/3/25documented as of this encounter
--- NOTE | 2025-01-15 13:37 | MR_ITS ---
[address] [address] Patient Name: TARYN SANTACRUZ MRN: [id number] date: 1985 Sex: F Assigned Patient Location: MRI Current Patient Location: MRI Accession/Order Number: [id number] Exam Date: 01/15/2025 13:52 Report Date: 01/15/2025 16:18 At the request of: FLORENCIA BOND Procedure: MR head/brain wo/w con MR head/brain wo/w con 01/15/2025 2:48 PM SIGN AND SYMPTOMS: ^New Onset Headache, Elevated Platelet Count, Positive P-ANCA PROTOCOL: Multiplanar multisequence MR images of the brain with and without IV contrast CONTRAST: 12 mL of intravenous Dotarem COMPARISON: None. FINDINGS: Extra axial spaces: Age appropriate. Hemorrhage: None. Ventricular system: Within normal limits. Basal cisterns: Within normal limits and not effaced. Cerebral parenchyma: Normal in signal. Midline shift: None.. Cerebellum: Within normal limits. Brainstem: Within normal limits. OTHER: Calvarium: Normal marrow signal. Vascular system: Satisfactory flow voids within the anterior and posterior circulation. Visualized Paranasal sinuses: Within normal limits. Visualized Orbits: Within normal limits. Visualized upper cervical spine: Within normal limits. Sella and skull base: Within normal limits. MR/MR head/brain wo/w con IMPRESSION: No acute intracranial pathology. No abnormal postcontrast enhancement. Impression dictated by: Flo Meza M.D. 01/15/2025 4:18 PM Dictation Location: [place] [address] Electronically authenticated by: [id number] Y Date: 01/15/2025 16:18
--- OUTSIDE RECORDS SUMMARY | 2025-01-15 13:37 | XMS_ITS | Patient Health Record ---
Author Organization [facility] [place] Address [address] [place] [address] Care Team Providers Care Business Process Lead Name Role Phone Fatou Kelly DO Primary Care Provider Un available Pedro Hewitt Unavailable [phone] Allergies No Known Allergies Reason For Referral No Information Medications Medication SIG (Take, Route, Frequency, Duration) Notes Start Date End Date Status Albuterol Sulfate HFA 108 (9 0 Base) MCG/ACT 2 puffs as needed for SOB Inhalation jessica ry 4 hrs; Duration: 30 days ActiveTrelegy Ellipta 200-62.5-25 MCG/ACT1 puff Inhalation Once a day; Duration: 90 daysRinse after useActiveLoestrin 1/20 (21) 1-20 MG-MCGOral; Duration: 84 DaysActiveTurmeric 500 MGas directed OrallyActiveMulti Vitamin -1 tablet Orally Once a dayActive Social History Tobacco Use: Social History Observation Description Date Details (start date - stop date) Never Smoker NA - NA Tobacco Use/Smoking Question Answer Notes Patient is a nonsmoker Tobacco Control (Standard) Question Answer Notes Tobacco use: Nonsmoker Problems Problem Type SNOMED Code ICD Code Onset Dates Problem Status W/U Status Risk Notes Problem Uncomplicated mild p ersistent asthma (799516236) Mild persistent asthma, uncomplicated (J45.30) ActiveconfirmedProblemLong-term current use of inhaled steroid (787131493)custodial (current) use of inhaled steroids (Z79.51)ActiveconfirmedProblemPeriodic limb movement disorder (244671796)PLMD (periodic limb movement disorder) (G47.61)ActiveconfirmedProblemMultiple pulmonary nodules (759790010)Multiple pulmonary nodules (R91.8)ActiveconfirmedProblemPositive P-ANCA titer (R76.8) Activeconfirmed Plan Of Treatment No Information Insurance Providers Payer Name Payer Address Payer Phone Subscriber Number Group Number Insured Name Patient Relationship to Insured Coverage Start Date Coverage End Date MMO [address] [place], [place] [id number] Chrystal Mason Self - patient is the insured Medical (General) History Medical History History ICD Code PLMD (periodic limb movement disorder) G 47.61 Mild persistent asthma, uncomplicated J4 5.30 Multiple pulmonary nodules R91.8 Positive P-ANCA titer R76.8 Endometriosis N80.9 Primary osteoarthritis M19.91 custodial (current) use of inhaled stero ids Z79.51 Surgical History Surgery Date(Month/Year) diagnostic laparoscopy x2 nephrectomy(organ donor)4bunionectomy-bilateraltonsillectomy and mmfaynjtksqot40/29/2021Hospitalization History Reason Date(Month/Year) Nephrectomy-Organ Donation-[facility] 4
--- OUTSIDE RECORDS SUMMARY | 2025-01-15 13:37 | XMS_ITS | Encounter Summary ---
Author Organization [facility] Address [address] [place] [address] Care Team Providers Care Supply Room Clerk Name Role Phone Fatou Kelly DO Primary Care Provider Fatou Kelly DO Unavailable [phone] Encounter Details DateTypeDepartmentCare Team (Latest Contact Info)Kkjzamcchkb11/29/2025Clinisync Result Encounter [facility] External Department Unsolicited Fatou Kelly, DO [address] [facility] [address] [place] [address] Social History Tobacco UseTypesPacks/DayYears UsedDateSmoking Tobacco: NeverSmokeless Tobacco: NeverAlcohol UseStandard Drinks/WeekCommentsNever0 (1 standard drink = 0.6 oz pure alcohol)Caffeine intake: noneCommentsUnknownSex and Gender InformationValueDate RecordedSex Assigned at SwxfcKapuff32/31/2023 10:34 AM EDT Legal ZheZqwovi36/15/2023 6:46 PM EDTGender SskgtcqoYfzqhi24/31/2023 10:34 AM EDTSexual OjbcyjjvkzgGtjktmol12/31/2023 10:34 AM EDTOccupationIndustryJob Start DateJob End DatePhysical Therapist AssistantNot on fileNot on fileNot on file documented as of this encounter Plan of Treatment DateTypeDepartmentCare Team (Latest Contact Info)Iirwfknyujn73/03/2025 3:30 PM ESTOffice Visit [facility] [address] [place] [phone] WilliamKellyMay E, DO [address] [place] [address] 02/25/2025 3:30 PM ESTOffice Visit [facility] [address] [place] [phone] ChristopherFatou Cohen, DO [address] [place] [address] 08/25/2025 10:00 AM EDTOffice Visit [facility] [address] [place] [phone] May Thomas, DO [address] [place] [address] documented as of this encounter Procedures Procedure NamePriorityDate/TimeAssociated DiagnosisCommentsHP CBC WITH PLATELET NO XBROFRSOWIRKHhmqqbd94/29/2025 2:18 PM EDT [facility] CMP (CMP) (FOR REMOTE [facility] USE)Sryxoee6001/06/2025 2:18 PM EDT ALL THYROID STIM RQEZICXOzmbfrg32/29/2025 2:18 PM EDT ALL SED MQDYBikjqbg06/29/2025 2:18 PM EDT ALL C REACTIVE THEMCMBKcfcasr88/29/2025 2:18 PM EDT documented in this encounter Results * ALL THYROID STIM HORMONE (01/06/2025 2:18 PM EDT)ComponentValueRef RangeTest MethodAnalysis TimePerformed AtPathologist SignatureTHYROID STIMULATING HORMONE1.3990.358 - 3.740 uIU/mLTBHSpecimen (Source)Anatomical Location / LateralityCollection Method / VolumeCollection TimeReceived Time01/06/2025 2:18 PM EDT1 2:20 PM EDT Narrative CLINISYNC - 01/06/2025 3:49 PM EDT Authorizing ProviderResult TypeResult StatusSand Nakul SaxenaChristopherEast Orange [facility] Center Final ResultPerforming OrganizationAddressCity/State/ZIP CodePhone Number [facility] * ALL C REACTIVE PROTEIN (01/06/2025 2:18 PM EDT)ComponentValueRef RangeTest MethodAnalysis TimePerformed AtPathologist SignatureC REACTIVE PROTEIN<0.50 <=0.50 mg/dLTBHSpecimen (Source)Anatomical Location / LateralityCollection Method / VolumeCollection TimeReceived Time01/06/2025 2:18 PM EDT1 2:20 PM EDT Narrative CLINISYSD - 01/06/2025 3:49 PM EDT Authorizing ProviderResult TypeResult StatusSand Nakul SaxenaChristopherEast Orange [facility] Final ResultPerforming OrganizationAddressCity/State/ZIP CodePhone Number [facility] * (ABNORMAL) [facility] CMP (CMP) (FOR REMOTE [facility] USE) (01/06/2025 2:18 PM EDT) ComponentValueRef RangeTest MethodAnalysis TimePerformed AtPathologist WxisybcpwRBJMQH021486 - 145 mmol/LTBHPOTASSIUM4.03.5 - 5.1 mmol/LTBHCHLORIDE 94814 - 107 mmol/LTBHCARBON SUIEPXR76.221.0 - 32.0 mmol/LTBHANION GAP13.8TBH VRNCSFQ6821 - 106 mg/dLTBHBLOOD UREA ZSMVGLEC92.07.0 - 18.0 mg/dLTBHCREATININE 1.12(H)0.55 - 1.02 mg/dLTBHTBH EGFR-AF SAUDI ARABIAN>60>=60 mL/min/1.73m 2TBHTBH EGFR-NON AF JQATLWJY81(L)>=60 mL/min/1.73m 2TBHBUN CREATININE RATIO10.7TBH CALCIUM9.08.5 - 10.1 mg/dLTBHBILIRUBIN TOTAL0.50.2 - 1.0 mg/dLTBHASPARTATE AMINO OSBXTOVPGTH6137 - 37 U/LTBHALANINE HMDXJVUWCEQTVMKG2562 - 59 U/LTBH ALKALINE ATIXYDJIDVU7708 - 116 U/LTBHTOTAL PROTEIN7.76.4 - 8.2 g/dLTBHALBUMIN LEVEL4.03.4 - 5.0 g/dLTBHGLOBULIN3.7g/dLTBHALBUMIN GLOBULIN RATIO1.1TBH Specimen (Source)Anatomical Location / LateralityCollection Method / Volume Collection TimeReceived Time01/06/2025 2:18 PM EDT1 2:20 PM EDT Narrative CLINISYSD - 01/06/2025 3:49 PM EDT Authorizing ProviderResult TypeResult StatusSandOlmsted Medical Center Final ResultPerforming OrganizationAddressCity/State/ZIP CodePhone Number [facility] * ALL SED RATE (01/06/2025 2:18 PM EDT)ComponentValueRef RangeTest Method Analysis TimePerformed AtPathologist SignatureTB SED RATE14<=20 mm/hrTBH Specimen (Source)Anatomical Location / LateralityCollection Method / Volume Collection TimeReceived Time01/06/2025 2:18 PM EDT1 2:20 PM EDT Narrative [facility] - 01/06/2025 2:57 PM EDT Authorizing ProviderResult TypeResult StatusSandOlmsted Medical Center Final ResultPerforming OrganizationAddressCity/State/ZIP CodePhone Number [facility] * (ABNORMAL) [facility] CBC WITH PLATELET NO DIFFERENTIAL (01/06/2025 2:18 PM EDT) ComponentValueRef RangeTest MethodAnalysis TimePerformed AtPathologist SignatureTBH WBC8.24.0 - 11.0 10 3/uLTBHTBH RBC5.064.20 - 5.40 10 6/uLTBHTBH HGB14.512.0 - 16.0 g/dLTBHTBH HCT45.036.0 - 48.0 %TBHTBH MCV88.981.0 - 99.0 fL TBHTBH MCH28.726.7 - 34.0 pgTBHTBH MCHC32.229.9 - 35.2 g/dLTBHTBH RDW12.111.0 - 15.0 %TBHTBH CYP585(H)150 - 450 10 3/uLTBHTBH MPV9.0(L)9.5 - 13.5 fLTBH Specimen (Source)Anatomical Location / LateralityCollection Method / Volume Collection TimeReceived Time01/06/2025 2:18 PM EDT1 2:20 PM EDT Narrative CLINISYNC - 01/06/2025 2:35 PM EDT Authorizing ProviderResult TypeResult StatusSandra Nakul Kelly DOCLINISYNC Final ResultPerforming OrganizationAddressCity/State/ZIP CodePhone Number [facility] documented in this encounter Visit Diagnoses Not on filedocumented in this encounter Care Teams Team MemberRelationshipSpecialtyStart DateEnd Date Fatou Kelly DO [address] [place] [address] PCP - GeneralInternal Medicine10/15/22 Fatou Kelly DO [address] [place] [address] PCP - Medical [place] [employer]11/10/1511documented as of this encounter
--- OUTSIDE RECORDS SUMMARY | 2025-01-15 13:37 | XMS_ITS | Encounter Summary ---
Author Organization [facility] Address [address] [place] [address] Care Team Providers Care Mother Repairer Name Role Phone Fatou Kelly DO Primary Care Provider Fatou Kelly DO Unavailable [phone] Encounter Details DateTypeDepartmentCare Team (Latest Contact Info)Bnfcuvbaije36/31/2025Results Follow-Up [facility] [place] [facility] [address] [facility] [address] [place] [phone] Fatou Kelly, DO [address] [facility] [address] [place] [address] HMHP CBC WITH PLATELET NO DIFFERENTIAL, ALL SED RATE, [facility] CMP (CMP) (FOR REMOTE [facility] USE), Additional followed-up results: 2 Social History Tobacco UseTypesPacks/DayYears UsedDateSmoking Tobacco: NeverSmokeless Tobacco: NeverAlcohol UseStandard Drinks/WeekCommentsNever0 (1 standard drink = 0.6 oz pure alcohol)Caffeine intake: noneCommentsUnknownSex and Gender InformationValueDate RecordedSex Assigned at MexdkMnkgdq89/31/2023 10:34 AM EDT Legal LyaGqwfeu95/15/2023 6:46 PM EDTGender MovhbuihAlvykz72/31/2023 10:34 AM EDTSexual DuljzwjfsmvWpdqyyol48/31/2023 10:34 AM EDTOccupationIndustryJob Start DateJob End DatePhysical Therapist AssistantNot on fileNot on fileNot on file documented as of this encounter Plan of Treatment DateTypeDepartmentCare Team (Latest Contact Info)Zmeoaydtyxz98/03/2025 3:30 PM ESTOffice Visit [facility] [address] [place] [phone] May Thomas, DO [address] [place] [address] 02/25/2025 3:30 PM ESTOffice Visit [facility] [place] [facility] [address] [place] [phone] Fatou Kelly, DO [address] [place] [address] 08/25/2025 10:00 AM EDTOffice Visit [facility] [address] [place] [phone] May Thomas, DO [address] [place] [address] documented as of this encounter Visit Diagnoses Not on filedocumented in this encounter Care Teams Team MemberRelationshipSpecialtyStart DateEnd Date Fatou Kelly DO [address] [place] [address] PCP - GeneralInternal Medicine10/15/22 Fatou Kelly DO [address] [place] [address] PCP - Medical [place] [employer]/documented as of this encounter
--- OUTSIDE RECORDS SUMMARY | 2025-01-15 13:37 | XMS_ITS | Clinical Summary ---
Author Organization [facility] Healthcare Address [address] [place] [address] Care Team Providers Care Fruit Grower Name Role Phone Fatou Kelly DO Primary Care Provider Fatou Kelly DO Unavailable [phone] Allergies No known active allergies Medications MedicationSigDispense [...] (six) hours. Take two tablets as neededActive Sswpmbhedca-Bagptatqe-Dhlcmr (Trelegy Ellipta) 200-62.5-25 MCG/ACT aerosol powder Inhale [...] by mouth Daily Take continuous. 84 tablet 410/31/2024Active Rimegepant Sulfate (Nurtec) 75 MG tablet dispersible [...] 2 years Irritable bowel syndrome with predominant pgjegeribnjk34/27/2023 Assessment & Plan (03/06/2023 9:14 AM EST): [...] GI for possible colonoscopy Periodic limb movement krnuwaow91/01/2023 Overview (03/06/2023): PSG done 01/30/2022: no evidence of MARJORIE. +PLM with 239 events. Limb movement index 44.7/hr with 24.3 causing arousals Medication options have been discussed with her by her slitter service and setter (Dr Hewitt); ie Mirapex, Neurontin -She has tried both neurontin and mirapex, but did not really not much improvement with some SE. Dank just takes melatonin 5mg when feeling more [...] assess for evidence of inflammation Multiple pulmonary rmmufwj0111/09/2022 Overview (03/06/2023): she follows with PULM/Dr Hewitt. The areas have been stable Hrayhmtcdps60/01/2023 Overview (11/09/2022): STOP-BANG-3; Marana-12 PSG 01/2022- no evidence of MARJORIE Chronic pain ntxnslew38/01/2023 Overview (11/13/2022): -She reports that since the age of 6, she has been taken to the doctor because of severe body pain . When she was younger, the doctors said she had growing pains . -She reports pain more in muscles than in her joints, eps forearms. 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 She has been seen by Spray Gun Operator - Dr Zhu at [facility] and then 07/11/2021 she got a 2nd opinionfrom Dr Rick Al at ) and dx with fibromyalgia, but she does not agree with this dx. There has also been discussion of MCTD Major depressive disorder, single episode, qzogzorpifr67/31/2023Mild intermittent asthma without cnatzpzneece67/31/2023 Overview (03/06/2023): Follows with Dr. Hewitt PFT 01/23/2021 She is using Trelegy and has reported significant improvement in her symptoms (on Spiriva and Breo in the past). 02/2023- she reports overall sx control have been very good since starting Trelegy (no recent use of Albuterol rescue) Clrvbovlwpwls21/31/2023 Overview (11/08/2022): Follows with Dr. Thomas Encounters DateTypeDepartmentCare ValvBtienmgsthr73/31/2025Results Follow-Up [facility] [address] [place] [address] Fatou Kelly DO HMHP CBC WITH PLATELET NO DIFFERENTIAL, ALL SED RATE, [facility] CMP (CMP) (FOR REMOTE [facility] USE), Additional followed-up results: linisync Result Encounter [facility] External Department Unsolicited Fatou Kelly DO 01/05/2025 9:45 AM EDTOffice Visit [facility] [address] [place] [address] Fatou Kelly, New onset headache (Primary Dx); Positive P-ANCA titer; Elevated platelet count; Episodic paroxysmal hemicrania, not intractable; Kidney donor01/05/20251903Hdslnd04/27/2025Travelfrom Last 3 Months Immunizations ImmunizationAdministration DatesNext DueHPV, Zlqsnyjpbndl93/23/2010,02/28/2009, 12/24/2008Td (adult), 5 Lf tetanus toxoid, preservative free, gwitfjky14/30/1999 Family History Medical HistoryRelationNameCommentsAlcohol abuseBrotherDavid RossDrug abuse [...] and Gender Information ValueDate RecordedSex Assigned at FwkqvZepwvq40/31/2023 10:34 AM EDTLegal Sex Qvjqqx82/ 6:46 PM EDTGender EktzwkofFiqjas61/31/2023 10:34 AM EDTSexual TjwouydtdkuTderiphy03/31/2023 10:34 AM EDTOccupationIndustryJob Start DateJob End DatePhysical Therapist AssistantNot on fileNot on fileNot on file Last Filed Vital Signs Vital SignReadingTime TakenCommentsBlood Nhbsbbpm203/7401/05/2025 10:03 AM EDT Wpuxc581601/05/2025 10:03 AM EDTTemperature--Respiratory Rate--Oxygen Saturation 98%01/05/2025 10:03 AM EDTInhaled Oxygen Concentration--Ibepkh13.7 kg (140 lb 6.4 oz)01/05/2025 10:03 AM MTZTgulzv413.5 cm (5' 2 )01/05/2025 10:03 AM EDTBody Mass Index25.6801/05/2025 10:03 AM EDT Plan of Treatment DateTypeDepartmentCare Team (Latest Contact Info)Wwvbtuyzbpp11/03/2025 3:30 PM ESTOffice Visit [facility] [address] [place] [address] May Thomas, DO [address] [place] [address] 02/25/2025 3:30 PM ESTOffice Visit [facility] [address] [place] [phone] Fatou Kelly, DO [address] [place] [address] 08/25/2025 10:00 AM EDTOffice Visit [facility] [address] [place] [address] May Thomas, DO [address] [place] [address] Health MaintenanceDue DateLast DoneCommentsPneumococcal Vaccine: Pediatrics (0 to 5 Years) and At-Risk Patients (6 to 64 Years) (1 of 2 - PCV)05/29/2006COVID- 19 Vaccine (1 - season)2024Influenza Vaccine (#1)2024 12/24/2008Pap Smear, 12/18/2022ervical Cancer Screening 12/19/2027HPV/Lgmqyh43, 11/23/2021, 11/17/2020, Additional history exists Procedures Procedure NamePriorityDate/TimeAssociated DiagnosisCommentsALL THYROID STIM LSGXDXDEfmzzqn49/29/2025 2:18 PM EDT ALL C REACTIVE UYRVYGINkxdigj29/29/2025 2:18 PM EDT [facility] CMP (CMP) (FOR REMOTE [facility] USE)Pnkhrar1101/06/2025 2:18 PM EDT ALL SED PSUKNkfxqnz09/29/2025 2:18 PM EDT HMHP CBC WITH PLATELET NO BNSALQMCOJAIEwdcvri76/29/2025 2:18 PM EDT THINPREP TIS PAP W/REFL HPV MRNA E6/I2Vppeazi73/10/2023 9:04 AM EDT Screening for malignant neoplasm of cervix from Last 3 Months or Most Recently Relevant to Health Maintenance Results * (ABNORMAL) HMHP CBC WITH PLATELET NO DIFFERENTIAL (01/06/2025 2:18 PM EDT) ComponentValueRef RangeTest MethodAnalysis TimePerformed AtPathologist SignatureTBH WBC8.24.0 - 11.0 10 3/uLTBHTBH RBC5.064.20 - 5.40 10 6/uLTBHTBH HGB14.512.0 - 16.0 g/dLTBHTBH HCT45.036.0 - 48.0 %TBHTBH MCV88.981.0 - 99.0 fL TBHTBH MCH28.726.7 - 34.0 pgTBHTBH MCHC32.229.9 - 35.2 g/dLTBHTBH RDW12.111.0 - 15.0 %TBHTBH FDV093(H)150 - 450 10 3/uLTBHTBH MPV9.0(L)9.5 - 13.5 fLTBH Specimen (Source)Anatomical Location / LateralityCollection Method / Volume Collection TimeReceived Time01/06/2025 2:18 PM EDT1 2:20 PM EDT Narrative [facility] - 01/06/2025 2:35 PM EDT Authorizing ProviderResult TypeResult StatusSandra Nakul Kelly DOCLINISYNC Final ResultPerforming OrganizationAddressCity/State/ZIP CodePhone Number [facility]IN[facility] TBH * (ABNORMAL) [facility] CMP (CMP) (FOR REMOTE [facility] USE) (01/06/2025 2:18 PM EDT) ComponentValueRef RangeTest MethodAnalysis TimePerformed AtPathologist KwnrqbxsqHXIYBE674222 - 145 mmol/LTBHPOTASSIUM4.03.5 - 5.1 mmol/LTBHCHLORIDE 49406 - 107 mmol/LTBHCARBON URLYGKJ33.221.0 - 32.0 mmol/LTBHANION GAP13.8TBH EEUNTDU9911 - 106 mg/dLTBHBLOOD UREA OTNNZSZV42.07.0 - 18.0 mg/dLTBHCREATININE 1.12(H)0.55 - 1.02 mg/dLTBHTBH EGFR-AF MACANESE>60>=60 mL/min/1.73m 2TBHTBH EGFR-NON AF IACQGNIS42(L)>=60 mL/min/1.73m 2TBHBUN CREATININE RATIO10.7TBH CALCIUM9.08.5 - 10.1 mg/dLTBHBILIRUBIN TOTAL0.50.2 - 1.0 mg/dLTBHASPARTATE AMINO SLUACNRFZTO4570 - 37 U/LTBHALANINE XDTQHIXIJDIYYXQP8774 - 59 U/LTBH ALKALINE KOHRQBURCBT7270 - 116 U/LTBHTOTAL PROTEIN7.76.4 - 8.2 g/dLTBHALBUMIN LEVEL4.03.4 - 5.0 g/dLTBHGLOBULIN3.7g/dLTBHALBUMIN GLOBULIN RATIO1.1TBH Specimen (Source)Anatomical Location / LateralityCollection Method / Volume Collection TimeReceived Time01/06/2025 2:18 PM EDT1 2:20 PM EDT Narrative [facility] - 01/06/2025 3:49 PM EDT Authorizing ProviderResult TypeResult StatusSandra D Christopher-Dorian [facility]ONCEN[facility] Final ResultPerforming OrganizationAddressCity/State/ZIP CodePhone Number [facility] * ALL THYROID STIM HORMONE (01/06/2025 2:18 PM EDT)ComponentValueRef RangeTest MethodAnalysis TimePerformed AtPathologist SignatureTHYROID STIMULATING HORMONE1.3990.358 - 3.740 uIU/mLTBHSpecimen (Source)Anatomical Location / LateralityCollection Method / VolumeCollection TimeReceived Time01/06/2025 2:18 PM EDT1 2:20 PM EDT Narrative [facility] - 01/06/2025 3:49 PM EDT Authorizing ProviderResult TypeResult StatusSandra D [facility] JANAYCEN[facility] Final ResultPerforming OrganizationAddressty/State/ZIP CodePhone Number [facility] * ALL SED RATE (01/06/2025 2:18 PM EDT)ComponentValueRef RangeTest Method Analysis TimePerformed AtPathologist SignatureTBH SED RATE14<=20 mm/hrTBH Specimen (Source)Anatomical Location / LateralityCollection Method / Volume Collection TimeReceived Time01/06/2025 2:18 PM EDT1 2:20 PM EDT Narrative [facility]MS - 01/06/2025 2:57 PM EDT Authorizing ProviderResult TypeResult StatusSandra D ChristopherChristian [facility] Final ResultPerforming OrganizationAddressty/State/ZIP CodePhone Number [facility] * ALL C REACTIVE PROTEIN (01/06/2025 2:18 PM EDT)ComponentValueRef RangeTest MethodAnalysis TimePerformed AtPathologist SignatureC REACTIVE PROTEIN<0.50 <=0.50 mg/dLTBHSpecimen (Source)Anatomical Location / LateralityCollection Method / VolumeCollection TimeReceived Time01/06/2025 2:18 PM EDT1 2:20 PM EDT Narrative [facility] - 01/06/2025 3:49 PM EDT Authorizing ProviderResult TypeResult StatusSandra Nakul Robin DOCLINISYNC Final ResultPerforming OrganizationAddressCity/State/ZIP CodePhone Number [facility] * THINPREP TIS PAP W/REFL HPV MRNA E6/E7 (12/18/2022 9:04 AM EDT)ComponentValue Ref RangeTest MethodAnalysis TimePerformed AtPathologist SignatureCLINICAL INFORMATIONQUESTComment:CERVICALLMPQUESTComment:SILENT WITH OCPPREV. PAPQUEST Comment:NONE GIVENPREV. BXQUESTComment:NONE GIVENSOURCEQUESTComment:None given STATEMENT OF ADEQUACYQUESTComment: Satisfactory for evaluation. Endocervical/transformation zone component present. INTERPRETATION/RESULTQUESTComment: Cytology Results: Negative for intraepithelial lesion or malignancy. CYTOTECHNOLOGISTQUESTComment: [facility], CT(ASCP) CT screening location: [place] [address]. REVIEW CYTOTECHNOLOGISTQUESTComment: [facility], CT(ASCP) CT screening location: [place] [address]. (ALWAYS MESSAGE)QUESTComment: EXPLANATORY NOTE: The Pap is [...] Client Letter) showing TIS test codes, see www.INFOGRAPHIQS/Resources, and navigate to Well-Woman>Physician Materials>TIS Client Letter. You can also call for test code assistance. Specimen (Source)Anatomical Location / LateralityCollection Method / Volume Collection TimeReceived TimeVaginal Fluid12/18/2022 9:04 AM EDT1 4:27 AM EDT Narrative Resulting Agency Comment Performing Organization Information ?Site ID: [id number] ?Name: [facility] ?Address: [address] [place] [address], [address] [place] [id number] ?Director: Ilya Canchola MD Authorizing ProviderResult TypeResult StatusKatstuart Thomas DOLAB CYTOLOGY ORDERABLESFinal ResultPerforming OrganizationAddressCity/State/ZIP CodePhone Number [facility] from Last 3 Months or Most Recently Relevant to Health Maintenance Insurance Care Teams Team MemberRelationshipSpecialtyStart DateEnd Date Fatou Kelly DO [address] [place] [address] PCP - GeneralInternal Medicine10/15/22 Fatou Kelly DO [address] [place] [address] PCP - Medical [employer] [employer]11/10/1511
--- OUTSIDE RECORDS SUMMARY | 2025-01-15 13:37 | XMS_ITS | Encounter Summary ---
Author Organization [facility] Address [address] [place] [address] Care Team Providers Care Porcelain Finisher Name Role Phone Fatou Kelly DO Primary Care Provider Fatou Kelly DO Unavailable Encounter Details DateTypeDepartmentCare Team (Latest Contact Info)Rwhneqoqnux80/28/2025Travel Social History Tobacco UseTypesPacks/DayYears UsedDateSmoking Tobacco: NeverSmokeless Tobacco: NeverAlcohol UseStandard Drinks/WeekCommentsNever0 (1 standard drink = 0.6 oz pure alcohol)Caffeine intake: noneCommentsUnknownSex and Gender InformationValueDate RecordedSex Assigned at ZcebgKisngb73/31/2023 10:34 AM EDT Legal BbhImvwgy16/15/2023 6:46 PM EDTGender YumorgodJwwmkm98/31/2023 10:34 AM EDTSexual IorpkegstehDdvptxxo51/31/2023 10:34 AM EDTOccupationIndustryJob Start DateJob End DatePhysical Therapist AssistantNot on fileNot on fileNot on file documented as of this encounter Plan of Treatment DateTypeDepartmentCare Team (Latest Contact Info)Lotsoyjtigb97/03/2025 3:30 PM ESTOffice Visit [facility] [address] [place] [phone] Rinkes, May E, DO [address] [place] [address] 02/25/2025 3:30 PM ESTOffice Visit [facility] [address] [place] [phone] Fatou Kelly, DO [address] [place] [address] 08/25/2025 10:00 AM EDTOffice Visit [facility] [address] [place] [address] May Thomas, DO [address] [place] [address] documented as of this encounter Visit Diagnoses Not on filedocumented in this encounter Care Teams Team MemberRelationshipSpecialtyStart DateEnd Date Fatou Kelly DO [address] [place] [address] PCP - GeneralInternal Medicine10/15/22 Fatou Kelly DO [address] [place] [address] PCP - Medical [place] [employer]11/10/1511documented as of this encounter
--- OUTSIDE RECORDS SUMMARY | 2025-01-15 13:37 | XMS_ITS | Clinical Summary ---
Author Organization [facility] Address [address] [place] [address] Care Team Providers Care Supervisor Mapping Name Role Phone [facility], Other Unavailable [phone] Fatou Kelly DO Primary Care Provider [phone] Allergies No known active allergies Medications MedicationSigDispense QuantityRefillsLast FilledStart DateEnd DateStatus norethindrone-ethinyl estradiol (Loestrin ,) 1-20 MG-MCG tablet Take 1 tablet by mouth daily.Active Multiple Vitamin (multivitamin) capsule Take 1 capsule by mouth daily.Active Probiotic Product (PROBIOTIC PO) Take 1 tablet by mouth daily.Active Wncxyangcff-Cpquttqxz-Kuilnx 200-62.5-25 MCG/ACT Aerosol Powder, breath activated Inhale [...] InformationValueDate RecordedSex Assigned at BirthNot on fileLegal ZbwJurgrw09/06/2024 8:05 AM ESTGender Identity Not on fileSexual OrientationNot on file Last Filed Vital Signs Vital SignReadingTime TakenCommentsBlood Fawmppgm206/8409/18/2023 9:48 AM EDT Oyzib06630/10/2024 9:48 AM FMKImryazexnxl69 ??C (98.6 ??F)09/18/2023 9:48 AM EDT Respiratory Qiqu284608/25/2023 10:46 AM EDTOxygen Dafnmcujvl29%08/25/2023 10:46 AM EDTInhaled Oxygen Concentration--Qapitw23.7 kg (129 lb 4.8 oz)09/18/2023 9:48 AM CEYGxgvdn444.5 cm (5' 2 )08/23/2023 7:42 AM EDTBody Mass Index23.65008/23/2023 7:42 AM EDT Plan of Treatment Health MaintenanceDue DateLast DoneCommentsHEPATITIS C VIRUS JPPPTCKEI01/21/1988 HIV SCREENING HZXDMUMUIQ16/21/2003TDAP (ADULT)05/29/2006CERVICAL CANCER SCREENING VLSCJSCOON84/21/4772VFFGUPR07COVID-19 VACCINE ( season)2024INFLUENZA VACCINE (#1)51HEP B VACCINE Wnrbhkmrd72/01/2000, 03/09/1999, 02/07/1999HPV YFRYKXSGmvauzpyw12/23/2010, 02/28/2009, 12/24/2008PNEUMOCOCCAL VACCINE SERIESAged OutNo longer eligible based on patient's age to complete this topic Insurance * Guarantor: [facility] TypeRelation to PatientDate of BirthPhone Billing AddressDonorOther [address] [place] [address] on file Advance Directives For more information, please contact: [phone] (7:30 AM - 6PM [facility], Saturday-Saturday) TypeDate RecordedPatient RepresentativeExplanationHealthCare Power of Engraver 08/23/2023 6:54 AMAdvance Directives/Living Will08/23/2023 6:54 AM * Full Code (Latest Code Status on File) Date ActivatedDate InactivatedComments08/23/2023 7:39 AM Care Teams Team MemberRelationshipSpecialtyStart DateEnd Date [facility], Other [address] [place] [address] PCP - Transplant CoordinatorTransplant04/16/23 Fatou Kelly DO [address] [place] [address] PCP - GeneralInternal Medicine06/10/23
--- OUTSIDE RECORDS SUMMARY | 2025-01-15 13:37 | XMS_ITS | Encounter Summary ---
Author Organization [facility] Address [address] [place] [address] Care Team Providers Care Fast Food Assistant Restaurant Manager Name Role Phone Fatou Kelly DO Primary Care Provider Fatou Kelly DO Unavailable [phone] Encounter Details DateTypeDepartmentCare Team (Latest Contact Info)Dzwrutmhmtx65/27/2025Travel Social History Tobacco UseTypesPacks/DayYears UsedDateSmoking Tobacco: NeverSmokeless Tobacco: NeverAlcohol UseStandard Drinks/WeekCommentsNot Currently0 (1 standard drink = 0.6 oz pure alcohol)Caffeine intake: noneCommentsUnknownSex and Gender InformationValueDate RecordedSex Assigned at RmcpaZrwtac80/31/2023 10:34 AM EDT Legal EefTerqyr48/15/2023 6:46 PM EDTGender UmynyovhHgijpk62/31/2023 10:34 AM EDTSexual GbgojddlowcHmfzdjhz47/31/2023 10:34 AM EDTOccupationIndustryJob Start DateJob End DatePhysical Therapist AssistantNot on fileNot on fileNot on file documented as of this encounter Plan of Treatment DateTypeDepartmentCare Team (Latest Contact Info)Xrrqzuipxik79/03/2025 3:30 PM ESTOffice Visit [facility] [address] [place] [phone] Rinkes, May E, DO [address] [place] [address] 02/25/2025 3:30 PM ESTOffice Visit [facility] [address] [place] [phone] Fatou Kelly, DO [address] [place] [address] 08/25/2025 10:00 AM EDTOffice Visit [facility] [address] [place] [address] May Thomas, DO [address] [place] [address] documented as of this encounter Visit Diagnoses Not on filedocumented in this encounter Care Teams Team MemberRelationshipSpecialtyStart DateEnd Date Fatou Kelly DO [address] [place] [address] PCP - GeneralInternal Medicine10/15/22 Fatou Kelly DO [address] [place] [address] PCP - Medical [place] [employer]11/10/1511documented as of this encounter
--- OUTSIDE RECORDS SUMMARY | 2025-01-15 13:37 | XMS_ITS | Clinical Summary ---
Author Organization [facility] Address [address], [address] [place] [address] Care Team Providers Care Steam Tunnel Feeder Name Role Phone Fatou Christopher MD Primary Care Provider [phone] Allergies No known active allergies Medications MedicationSigDispense QuantityRefillsLast FilledStart DateEnd DateStatus naproxen sodium (ANAPROX DS) 550 MG tablet Indications:Dysmenorrhea,MenorrhagiaTake 1 tablet by mouth 2 times daily (with meals) for 20 days. 40 tablet 11007/05/2011ctive Additional Information Patient not taking.Reported on 01/05/2025 Multiple Vitamin (MULTI-VITAMIN DAILY PO) Take 1 tablet by mouth daily.Active Cyanocobalamin (VITAMIN B-12) 2000 MCG TBCR Take 1 tablet by mouth daily.Active levonorgestrel-ethinyl estradiol (AVIANE) 0.1-20 MG-MCG per tablet Take 1 tablet by mouth daily.Active albuterol sulfate HFA (PROVENTIL;VENTOLIN;PROAIR) 108 (90 Base) MCG/ACT inhaler Inhale 2 puffs into the lungs every 4 hours as neededActive TRELEGY ELLIPTA 200-62.5-25 MCG/ACT AEPB inhaler Inhale 1 puff into the lungs dailyActive Active Problems ProblemNoted DateDiagnosed DateOvarian cyst02/21/2012bdominal pain02/21/2012 Lhwhwmh0002/21/2012Mild persistent asthma, uncomplicated Assessment & Plan (01/05/2025 4:58 PM EDT): Asthma has been controlled for nearly 2 [...] de-escalation therapy. P-ANCA and MPO antibodies positive Assessment & Plan (01/05/2025 4:58 PM EDT): Patient has seen several cyber systems engineer who have been unable to diagnose her with any particular disease process or syndrome. There are no eosinophils which essentially rules out eosinophilic granulomatosis with polyangiitis (EGPA, formerly known as Churg-Enrique). Question microscopic polyangiitis-I am unclear what else I can do for her at this point as I am not a cyber systems engineer. She voiced appreciation of my assistance. PLMD (periodic limb movement disorder) Assessment & Plan (01/05/2025 4:58 PM EDT): Limb movement index 44.7x/hr - PSG 01/30/2022 Prior treatments: Gabapentin (Side effects: TECHNOLOGY AND ENGINEERING TEACHER, dyspnea), Pramipexole (ineffective) Holding off on any further treatment at this time. Multiple pulmonary nodules Assessment & Plan (01/05/2025 4:58 PM EDT): Unchanged 6mm RUL and RLL nodules compared 12/24/2022 to 12/26/2021 and 04/15/2021. According to current [employer] Society guidelines, no further imaging is required Encounters DateTypeDepartmentCare NeqgRgtuisnadxm44/28/2025 4:00 PM EDTOffice Visit [facility] [address], [address] [place] [address] Pedro Hewitt DO Mild persistent asthma, uncomplicated (Primary Dx); P-ANCA and MPO antibodies positive; PLMD (periodic limb movement disorder); Multiple pulmonary nodules; superintendent container terminal (current) use of inhaled qiknvahp57/07/2025bstract [facility] [address] [id number] Pedro Hewitt DO from Last 3 Months Immunizations ImmunizationAdministration DatesNext OjcZUK3207/04/1992,11/14/1990,1987, 1987,1987Hepatitis B008/10/1999,03/09/1999,02/07/1999Hib, unspecified 12/04/1988MMR, PRIORIX, M-M-R II, (age 12m+), SC, 0.5mL02/07/1999,10/31/1988PPD Test10/06/2007,10/06/2007,05/27/1990,06/08/19885859Qxbexow33/30/1999 Family History Medical HistoryRelationNameCommentsCrohn's DiseaseMaternal AuntCancerMaternal GrandfatherbladderEarly DeathMaternal GrandfatherCancerPaternal Auntcolon cancer Heart DiseaseNeg HxRelationNameStatusCommentsMaternal AuntMaternal Grandfather MotherAliveendometriosisPaternal Aunt Social History Tobacco UseTypesPacks/DayYears UsedDateSmoking Tobacco: NeverSmokeless Tobacco: NeverAlcohol UseStandard Drinks/WeekCommentsNo0 (1 standard drink = 0.6 oz pure alcohol)socialCommentsNoSex and Gender InformationValueDate RecordedSex Assigned at IxkjtEjlpff58/03/2025 2:35 PM EDTLegal GlfNazqfs48/12/2013 2:50 AM ESTGender CwlbsupzNrvrsd06/03/2025 2:35 PM EDTSexual OrientationStraight 12/11/2024 2:36 PM EDTOccupationIndustryJob Start DateJob End 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 Not on fileNot on fileNot on file Last Filed Vital Signs Vital SignReadingTime TakenCommentsBlood Mckqjvpf522/6801/05/2025 4:05 PM EDT Lrlth3493 4:05 PM JBVOutnrzchhzl36.1 ??C (97 ??F)01/05/2025 4:05 PM EDT Respiratory Ezgg8878 4:05 PM EDTOxygen Pudgheysfd02%01/05/2025 4:05 PM EDTon room airInhaled Oxygen Concentration--Fwfwrz13.8 kg (134 lb)01/05/2025 4:05 PM OYSMpomgw888.9 cm (5' 1 )01/05/2025 4:05 PM EDTBody Mass Index25.32 01/05/2025 4:05 PM EDT Plan of Treatment DateTypeDepartmentCare Team (Latest Contact Info)Fjikboodupe38/27/2026 4:00 PM EDTOffice Visit [facility] [address], [address] [place] [address] Pedro Hewitt DO [address] [facility] [address] [place] [address] F/U 1 YR ASTHMAHealth MaintenanceDue DateLast DoneCommentsDTaP/Tdap/Td vaccine (6 - Tdap), 07/04/1992, 11/14/1990, Additional history existsDepression Vnerwt6105/30/1999Varicella vaccine (1 of 2 - 13+ 2-dose series) 05/29/2000HIV ufrxit4905/29/2002Hepatitis C lcmtua0805/29/2005Pneumococcal 0-49 years Vaccine (1 of 2 - PCV)05/29/2006Pap smear05/29/2008Cervical cancer screen 05/29/2017HPV (without or with Pap)05/29/2017Diabetes vxqljq1205/29/2022Flu vaccine (#1)COVID-19 Vaccine ( season)2024 Hib mnjyjnbIdfwmzgmw28/26/1989Polio rhrechwOahmquwvp07/26/1993, 11/14/1990, 1987, Additional history existsHepatitis B dyjhczgGewiqodam81/01/2000, 03/09/1999, 02/07/1999HPV duurxvrWixcburfv18/23/2010, 02/28/2009, 12/24/2008 Hepatitis A vaccineAged OutNo longer eligible based on patient's age to complete this topicMeningococcal (ACWY) vaccineAged OutNo longer eligible based on patient's age to complete this topicMeningococcal B vaccineAged OutNo longer eligible based on patient's age to complete this topic Insurance * Guarantor: Chrystal Mason TypeRelation to PatientDate of BirthPhone Billing AddressPersonal/IjybnxVngu64/21/1986 [facility] [place][note 2][address] [phone] Care Teams Team MemberRelationshipSpecialtyStart DateEnd Date Fatou Christopher MD [address] [facility] [address] [place] [address] PCP - GeneralInternal Rphargxh96/3/25
--- OUTSIDE RECORDS SUMMARY | 2025-01-15 13:40 | XMS_ITS | CCD ---
Author Organization [facility] Care Team Providers Care General Internal Medicine Physician Name Role Phone MICHELINE BELLE Unavailable Unavailable [...] Care Provider DO Wes Chaves Attending Provider [facility], Other Unavailable [phone] Fatou Marr DO Primary Care Provider Fatou Marr DO Primary Care Provider Fatou Marr DO Unavailable Fatou Marr DO Primary Care Provider FATOU MARR Primary Care Unavailable BEBETO BALDERRAMA Attending Unavailable BEBETO BALDERRAMA Admitting Unavailable FATOU MARR Primary Care Unavailable TAYLA MAZARIEGOS Referring Unavailable TAYLA MAZARIEGOS Attending Unavailable FATOU MARR Primary Care Unavailable TAYLA MAZARIEGOS Attending Unavailable SELF, SELF Referring Unavailable SELF, SELF Referring Unavailable FATOU MARR Primary Care Unavailable TAYLA MAZARIEGOS Attending Unavailable Tonia Morin DO Primary Care Provider [facility] Wes ADAME [facility] Admitting Unavailable Tonia Morin Primary Care Unavailable JAELYN FOWLER Attending Unavailable JAELYN FOWLER Attending Unavailable MAY THOMAS Attending Unavailable FATOU MARR Attending JAELYN Ford Attending Unavailable FATOU MARR Attending Unavailab thomas Medications Current Medications MedicationDrug Class(es)DatesSig (Normalized)Sig (Original)acetaminophen 325 mg oral tablet (18 sources)Start: 08-25-2023 End: 72-73-7264chhq 2 tablets by mouth every six hours as neededAcetaminophen 325 MG tablet Take 2 tablets by mouth every 6 hours as needed for Mild Pain or Moderate Pain for up to 7 days. Maximum dose 4000 mg from all sources in 24 hours. 56 tablet 08/25/2023 ActiveStart: 08-23-2023 End: 08-24-7163904 mg, Oral, EVERY 6 HOURS, First dose on Sat08/23/23 at 1800, Until Discontinued, Maximum dose ofacetaminophen is 4000 mg from all sources in 24 hours., Post-op/Post-[id number] 200 actuat albuterol 0.09 mg/actuat metered dose inhaler (18 sources)beta2-Adrenergic AgonistStart: 03-57-2660Iyibl: 13-08-5783omai 2 puff(s) by inhalation twice daily as [...] 125 mg oral tablet (1 source)Penicillin-class AntibacterialStart: 78-72-8309yfym 1 tablet by mouth twice dailyascorbic acid 500 mg chewable tablet (16 sources)Vitamin C End: 73-94-3133eldh 1 tablet by mouth in the morningascorbic acid (Vitamin C) 500 MG tablet Take 500 mg by mouth in the morning. 06/03/2024 Discontinued End: 89-32-0681Nkilavus Acid (VITAMIN C PO) Take by mouth. [...] mg oral capsule (2 sources)Start: 08-23-2023 End: 72-16-2479eyxm 1 capsule by mouth twice dailydocusate 100 MG capsule Take 1 capsule by mouth 2 times daily for 7 days. Hold for loose stool 14 capsule 08/25/2023 09/01/2023 Active0.4 ml enoxaparin sodium 100 mg/ml prefilled syringe (2 sources)Low Molecular Weight HeparinStart: 08-25-2023 End: 49-30-5947wuedgd 40 mg by subcutaneous injection every twenty-four hours Enoxaparin Sodium 40 MG/0.4ML injection Inject one syringe (0.4 mL) under the skin every 24 hours. 12 mL 08/25/2023 09/24/2023 ActiveNorethindrone Ac-Eth Estradiol (20 sources)EstrogenStart: 26-84-0042Fviiq: 01-09-2024 End: 72-67-0930uhsgvmcmxdxno-ethinyl estradiol (Loestrin 1/20, 21,) 1-20 MG-MCG tablet Indications: Encounter for surveillance of contraceptive pills Take 1 tablet by mouth Daily Take continuous. 84 tablet 4 01/09/2024 01/08/2025 Active Start: 08-24-2023 End: 77-29-4925rrqd 1 tablet by mouth once daily1 tablet, Oral, DAILY, First dose on 08/24/23 at 1215, Until DiscontinuedStart: 03-01-2023 End: 17-35-6365yjkw 1 tablet by mouth in the morningLoestrin 1/20, 21, 1-20 MG- MCG tablet Indications: Encounter for surveillance of contraceptive pills Take 1 tablet by mouth in the morning. Take continuous.. 84 tablet 4 03/01/2023 01/09/2024 Discontinued (Reorder)norethindrone-ethinyl estradiol (Loestrin 1/20, 21,) 1-20 MG-MCG tablet Take 1 tablet by mouth daily. Active{21 (ethinyl estradiol 0.035 MG / norgestimate 0.25 MG Oral Tablet) / 7 (inert ingredients 1 MG Oral Tablet) } Pack (2 sources)Progestin, Estrogentake 1 tablet by mouth every twenty-four hours Norgestimate-Eth Estradiol 0.25-35 MG-MCG 1 tablet Orally Once a day for 28 day(s) Rkpcvd97 actuat fluticasone furoate 0.2 mg/actuat / vilanterol 0.025 mg/actuat dry powder inhaler (1 source)Corticosteroid, beta2-Adrenergic Agonisttake 1 puff(s) by inhalation once dailyBreo Ellipta 200-25 MCG/INH 1 puff Inhalation Once a day Active Cgnizosizel-Rhhbqtmoy-Ryenpa (TRELEGY ELLIPTA IN) (7 sources)Qoouxovvliq-Gpvwybsjj-Bbbmaz (TRELEGY ELLIPTA IN) Inhale. Active Camuahgzqat-Qrccixtiu-Xkqkpj (Trelegy Ellipta) 200-62.5-25 MCG/ACT aerosol powder (15 sources)take 1 puff(s) by inhalation in the morning Uibrgaxlnus-Zdexvuaaa-Yyztvz (Trelegy Ellipta) 200-62.5-25 MCG/ACT aerosol powder Inhale 1 puff in the morning. Rx'd by Dr. Hewitt. Active Vhcdfmghgmu-Gllltfqxk-Gcbwfv 200-62.5-25 MCG/ACT Aerosol Powder, breath activated (2 sources)take 1 puff(s) by inhalation once frhwuKxhhejtayhm-Pynrqebqf-Ozcsry 200-62.5-25 MCG/ACT Aerosol Powder, breath activated Inhale 1 puff daily. Active Plwollieqmm-Huvmtfgcp-Vykozpfc (1 source)Start: 30-45-4325ewpdnjdlj 5 mg sublingual tablet (15 sources)Melatonin [address] 5 mg under the tongue as needed at bedtime (sleep issues). ActiveMultiple Vitamin (multivitamin) capsule (9 sources)take 1 capsule by mouth once dailyMultiple Vitamin (multivitamin) capsule Take 1 capsule by mouth daily. ActiveMultiple Vitamins-Minerals (MULTIVITAMIN GUMMIES ADULTS PO) (15 sources)take 1 tablet by mouth in the morningMultiple Vitamins-Minerals (MULTIVITAMIN GUMMIES ADULTS PO) Take 1 tablet by mouth in the morning. Active ondansetron 4 mg disintegrating oral tablet (2 sources)Serotonin-3 Receptor AntagonistStart: 08-25-2023 End: 85-95-4987szuf 1 tablet by mouth every eight hours as neededOndansetron 4 MG Tab Dispersible tablet Take 1 tablet by mouth every 8 hours as needed for Nausea /Vomiting for up to 3 days. 9 tablet 08/25/2023 08/28/2023 ActiveStart: 08-23-2023 End: 04-35-5546cpeg 4 mg intravenously every four hours as needed4 mg, Intravenous, EVERY 4 HOURS NEEDED, Starting on Sat08/23/23 at 1557, Until 08/25/23 at 1837, Nausea / Vomiting, 1st Line, Post-op/Post-ProcProbiotic Product (PROBIOTIC PO) (9 sources)take 1 tablet by mouth once dailyProbiotic Product (PROBIOTIC PO) Take 1 tablet by mouth daily. ActiveProbiotic Product (PROBIOTIC PO) Take by mouth. Activerimegepant 75 mg disintegrating oral tablet (3 sources)Start: 57-54-5950wnyf 1 tablet by mouth once daily as needed Rimegepant Sulfate (Nurtec) 75 MG tablet dispersible Indications: Episodic paroxysmal hemicrania, not intractable Take 75 mg by mouth Daily as needed (migraine) 10 tablet 01/05/2025 ActivetraMADol hydrochloride 50 mg oral tablet (5 sources)Opioid AgonistStart: 10-27-2018 End: 40-20-0438soqe 1 tablet by mouth every six hours as needed for paintraMADol 50 MG tablet Indications: Renal donor Take 1 tablet by mouth every 6 hours as needed for Moderate Pain (First line pain) for up to 7 days. 28 tablet 08/25/2023 Active Completed/Discontinued Medications MedicationDrug Class(es)DatesSig (Normalized)Sig (Original)cephalexin 500 mg oral capsule (2 sources)Cephalosporin AntibacterialStart: 10-27-2018 End: 81-15-1867phcm 1 capsule by mouth every six hoursCephalexin (Keflex) 500 mg capsule Discontinued 500 MG PO Q6H 28 October 27, 2018 12:00am February 12, 2024 1:21pmEstradiol-Norethindrone Acet 0.5-0.1 MG Oral Tablet (2 sources)Start: 45-78-3909Lydzddens-Norethindrone Acet 0.5-0.1 MG Oral Tablet TAKE 1 TABLET DAILY. Quantity: 0 Refills: 0 Ordered: 10-Jul-2021 Teodora Irizarry MDbeth Start : 10-Jul-2021 OuadndKamnxtfkufb-Cqavkwtfu-Oauisz 200-62.5-25 MCG/ACT AEPB 1 puff ++Patient supplied++ (1 source)Start: 08-24-2023 End: 31-93-5329uoto 1 puff(s) by inhalation once daily1 puff, Inhalation, DAILY, First dose on Sat08/24/23 at 1115, Until Discontinuedgabapentin 100 mg oral capsule (1 source)Anti-epileptic AgentStart: 08-23-2023 End: 21-10-5532vnle 100 mg by mouth once daily at gawmfhl128 mg, Oral, DAILY AT BEDTIME, First dose on Sat08/23/23 at 2100, Until Discontinued, Post-op/Post- ProcGadopiclenol SOLN 1-25 mL (1 source)Start: 06-24-2023 End: -25 mL, Intravenous, ONCE, 1 dose, [place] Sat06/24/23 [place] [address] ml heparin sodium, porcine 5000 unt/ml prefilled syringe (2 sources)Unfractionated Heparin, Anti-coagulantStart: 08-23-2023 End: 62-66-9695zrwvvr 5000 [IU] by subcutaneous injection every eight hours5,000 Units, Subcutaneous, EVERY 8 HOURS (0800/1600/2200), First dose on Sat08/23/23 at 1600, UntilDiscontinued, Post-op/Post-ProcStart: 08-23-2023 End: ,000 Units, Subcutaneous, SUMMER NANNY TO PROCEDURE, 1 dose, Starting on Sat08/23/23 [...] tablet (2 sources)Nonsteroidal Anti-inflammatory DrugStart: 10-22-2018 End: 22-63-6376sffd 1 tablet by mouth every six hours [...] source)Nonsteroidal Anti-inflammatory Drug, Cyclooxygenase InhibitorStart: 08-23-2023 End: 83-24-532926 mg, Intravenous, EVERY 6 HOURS, 8 doses, First dose on Sat08/23/23 at 1800, Last dose on Sat08/25/23 at 1200, Post-op/Post-Proc meclofenamate 100 mg oral capsule (2 sources)Start: 10-27-2018 End: 45-11-9512vmhn 1 capsule by mouth three times dailyMeclofenamate 100 mg capsule Discontinued 100 MG PO Three times daily 9 October 27, 2018 12:00am February 12, 2024 1:21pmmetroNIDAZOLE 500 mg oral tablet (2 sources)Nitroimidazole AntimicrobialStart: 10-27-2018 End: 89-66-5465gnpx 1 tablet by mouth twice dailyMetronidazole (Flagyl) 500 mg tablet Discontinued 500 MG PO Twice daily 14 October 27, 2018 12:00am February 12, 2024 1:21pmpromethazine hydrochloride 25 mg oral tablet (1 source)PhenothiazineStart: 08-25-2023 End: 65-28-4669obsv 1 dose by mouth once25 mg, Oral, ONCE, 1 dose, On Sat08/25/23 at 1300sennosides, long term 8.6 mg oral tablet (1 source)Start: 08-23-2023 End: 23-63-0003pyna 8.6 mg by mouth twice daily8.6 mg, Oral, 2 TIMES DAILY, First dose on Sat08/23/23 at 1700, Until Discontinued, Post-op/Post-Proc simethicone 80 mg chewable tablet (1 source)Start: 08-23-2023 End: 69-63-7291yovs 1 tablet by mouth every four hours as mg, Oral, EVERY 4 HOURS NEEDED, Starting on Sat08/23/23 at 1557, Until Sat08/25/23 at 1837, Gas, Post-op/Post-Wtzw9607 ml sodium chloride 9 mg/ml injection (4 sources)Start: 08-23-2023 End: 60-54-5497Tohhwuyjqla, at 100 mL/hr, CONTINUOUS, Starting on Sat08/23/23 at 1600, Until Sat08/24/23 at 0820, Post-op/Post-ProcStart: 06-24-2023 End: -250 mL, Intravenous, ONCE NEEDED, 1 dose, Starting on 06/24/23 at 1713, Until Sat06/24/23 at 1717, Flush, MR ProcedureStart: 06-10-2023 End: -100 mL, Intravenous, ONCE NEEDED, 1 dose, Starting on Sat06/10/23 at 1102, Until Sat06/10/23 at 1103, Flush, CT Procedureturmeric extract 500 mg oral capsule (14 sources) End: 35-60-8307dptq 1 tablet by mouth once dailyTurmeric 500 MG capsule Take 1 tablet by mouth 1 (one) time each day. 01/05/2025 Discontinued (Therapy completed)take 1 tablet by mouth once dailyTurmeric 500 MG capsule Take 1 tablet by mouth 1 (one) time each day. Active Problems Active Problems Problem ClassificationProblemDateDocumented DateEpisodic/ChronicAcquired foot deformities (2 sources)Bunion; Translations: [Bunion of right foot]EpisodicAcute and chronic tonsillitis (2 sources)Hypertrophy of tonsils; Translations: [Hypertrophy of tonsils]Chronic Asthma (18 sources)Asthma; Translations: [Asthma, unspecified type, unspecified]Onset: 491706-68-9728OfetzccMajtjwwiycpp of device; implant or graft (6 sources)Mechanical complication associated with orthopedic device; Translations: [Other mechanical complication of other internal orthopedic devices, implants and grafts, initial encounter]75-58-6222OlmnrqscMzxvvyrnoygwo and procreative management (2 sources)Oral contraception; Translations: [Encounter for surveillance of contraceptive pills]17-02-9687GmfvsmadRkzahzfykpiyk (16 sources)Endometriosis, unspecified; Translations: [Endometriosis (clinical)] Onset: 293317-68-0890TcjikmwFcfgavei; including migraine (5 sources)Episodic paroxysmal hemicrania; Translations: [Episodic paroxysmal hemicrania, not intractable]Onset: 885815-02-2468ZoyhjojQzwccdoh; including migraine (4 sources)Headache; Translations: [New onset headache]17-57-0372PjhdgaelLazl disorders (15 sources)Major depression, single episode; Translations: [Major depressive disorder, single episode, unspecified]Onset: 171836-72-9962Darljyr Nonspecific chest pain (1 source)Chest pain, unspecified; Translations: [Chest pain, unspecified]Onset: 17-82-5244NkjllsfkHangsqlsgvayqg (5 sources)Unspecified osteoarthritis, unspecified site; Translations: [Primary osteoarthritis, unspecified site]Onset: 05-53-7033TrvhelaFhajj aftercare (2 sources)Surgical follow-up; Translations: [Encounter for follow-up examination after completed treatment for conditions other than malignant neoplasm]82-49-6856WkvddpyjSgjps connective tissue disease (2 sources)Pain in limb; Translations: [Pain in left foot]EpisodicOther connective tissue disease (2 sources)Foot pain; Translations: [Pain in right foot]EpisodicOther connective tissue disease (6 sources)Pain in left foot; Translations: [Pain in left foot]06-03-2024 EpisodicOther female genital disorders (2 sources)Abnormal vaginal bleeding; Translations: [Abnormal uterine and vaginal bleeding, unspecified]80-99-9008EojvcelVrylafu on above:Problem List clean-up per request of Phys. EHR CmteOther gastrointestinal disorders (15 sources)Irritable bowel syndrome characterized by constipation; Translations: [Irritable bowel syndrome with constipation]Onset: 03-06-2023 21-36-2799LitspsfKspyq lower respiratory disease (5 sources)Other nonspecific abnormal finding of lung field; Translations: [OTH NONSPECIFIC ABN FIND LNG FIELD]Onset: 77-14-2440PsdlfthnPjdtv nervous system disorders (2 sources)Chronic pain; Translations: [Other chronic pain]ChronicOther nervous system disorders (15 sources)Chronic pain syndrome; Translations: [Chronic pain syndrome]Onset: 830929-46-6449YhlbpstYbydk screening for suspected conditions (not mental disorders or infectious disease) (8 sources)Cancer cervix screening status; Translations: [Encounter for screening for malignant neoplasm of cervix]07-25-7893PukekcizAzuxk upper respiratory infections (1 source)Chronic sinusitis, unspecified; Translations: [CHRONIC SINUSITIS UNSPECIFIED]Onset: 42-44-2137LufbhxgKzxjd upper respiratory infections (1 source)Acute bacterial sinusitis; Translations: [Acute sinusitis, unspecified]01-73-5227OntwjvwmEhgxnojp codes; unclassified (1 source)Periodic limb movement disorder; Translations: [PERIODIC LIMB MOVEMENT DISORDER]Onset: 94-68-1387GygwrawHbnumxra codes; unclassified (1 source)Hypersomnia, unspecified; Translations: [HYPERSOMNIA UNSPECIFIED] Onset: 82-54-8280JyarttqWkhqvtdy codes; unclassified (4 sources)Obstructive sleep apnea (adult) (pediatric); Translations: [OBSTRUCTIVE SLEEP APNEA]Onset: 83-88-9860JqeyqdnBpoquymp codes; unclassified (1 source)Idiopathic hypersomnia with long sleep time; Translations: [IDIO HYPERSOMNIA W/LONG SLEEP TIME]Onset: 76-87-3769XxpxsqnAtgegcvs codes; unclassified (6 sources)Periodic limb movement disorder; Translations: [Periodic limb movement disorder]Onset: 204667-15-2312CdbkmixOgiqpnxx codes; unclassified (15 sources)Hypersomnia; Translations: [Hypersomnia, unspecified]Onset: 081999-57-8682BxktpejGwkqtnvr codes; unclassified (9 sources)Periodic leg movements of sleep ; Translations: [Periodic limb movement disorder]Onset: 716074-98-0907AkxjhzkQszxzycv codes; unclassified (2 sources)Influenza vaccination declined; Translations: [Immunization not carried out because of patient refusal]31-30-4907UzlvwevtSsatqzo (1 source)SyncopeOnset: 14-13-9252Jzgqjlfp lupus erythematosus and connective tissue disorders (3 sources)Granulomatosis with polyangiitis; Translations: [Steffen's granulomatosis without renal involvement]Onset: 02-28-2021 Resolved: 03-72-6873SuifvpoPtbhxxpimtmf (2 sources)Chest pain, unspecified / R07.9(ICD-9)Onset: 79-61-5648Ymtxogd tract infections (2 sources)Acute cystitis; Translations: [Acute cystitis without hematuria] 10-96-0797OkknbiuzTqhzkjr on above:Problem List clean-up per request of Phys. EHR Cmte Past or Other Problems Problem ClassificationProblemDateDocumented DateEpisodic/ChronicImmunizations and screening for infectious disease (20 sources)Anti-nuclear factor positive; Translations: [Other and unspecified nonspecific immunological findings]Onset: 424111-00-5601LuasxblzCsnfl lower respiratory disease (15 sources)Multiple nodules of lung; Translations: [Other nonspecific abnormal finding of lung field]Onset: 240429-77-4112HxjbjlboRtsfkryp codes; unclassified (20 sources)Kidney donor; Translations: [Kidney donors]Onset: 08-10-2023 38-06-4898Rqsyacmx Results Test NameValueInterpretationReference RangeFacilityHMHP CBC WITH PLATELET NO DIFFERENTIALon 47-82-1466Mfaxccxhosk distribution width (RBC) [Ratio]12.1 %11.0 - 15.0 %[facility] HealthcareHematocrit (Bld) [Volume fraction]45.0 %36.0 - 48.0 %[facility] HealthcareHemoglobin (Bld) [Mass/Vol]14.5 g/dL12.0 - 16.0 g/dLSaint [facility] Hospital of [facility] Interpretation and review of laboratory resultsAbnormalMissouri Delta Medical Center (RBC) [Entitic mass]28.7 pg26.7 - 34.0 pgMissouri Baptist Hospital-SullivanHC (RBC) [Mass/Vol]32.2 g/dL 29.9 - 35.2 g/dLMissouri Baptist Hospital-SullivanV (RBC) [Entitic vol]88.9 fL81.0 - 99.0 fLSaint Joseph Hospital of KirkwoodPlatelet mean volume (Bld) [Entitic vol]9.0 fLLow9.5 - 13.5 fLSaint Francis Hospital & [facility] Services AZF976YescQTZOAudrain Medical Center RBC5.06NOAudrain Medical Center WBC8.2NOMS HealthcareCLINISYNCNOMS HealthcareCholesterol [Mass/volume] in Serum or Plasma Ordered By: Wes Chaves on 82-44-5483Iefgxxiexxg [Mass/Vol]193 mg/xNPzngdf632-732 [facility] CenterComment on above:Chol less than 200 mg/dl low riskChol 201-239 mg/dl borderline riskChol 240 mg/dl and greater high riskResult Comment: Chol less than 200 mg/dl low risk Chol 201-239 mg/dl borderline risk Chol 240 mg/dl and greater high riskPerformed By: #### LIPID, GLU #### [place] [address] USACholesterol in HDL [Mass/volume] in Serum or PlasmaOrdered By: Wes Chaves on 00-96-8213Gvawcxozsta in HDL [Mass/Vol]58 mg/kWIbsrsg77-26 [facility] CenterComment on above:HDL CHOL ATP-III CLASSIFICATION Cardiovascular RiskHDL > or equal to 60 mg/dL LOWHDL < 40 mg/dL HIGHResult Comment: HDL CHOL ATP-III CLASSIFICATION Cardiovascular Risk HDL > or equal to 60 mg/dL LOW HDL < 40 mg/dL HIGHPerformed By: #### LIPID, GLU #### [facility] [address] [place] [address] USACholesterol in LDL Calc [Mass/Vol]Ordered By: Wes Chaves on 07-01-5345Petledlnndc in LDL [Mass/Vol]114 mg/dLHigh0-100[facility] CenterComment on above:LDL ATP III CLASSIFICATIONLDL less than 100 mg/dL OptimalLDL 100-129 mg/dL Near or above gdnymhyCNQ015-368 mg/dL Borderline highLDL 160-189 mg/dL HighLDL greater than 189 mg/dL Very highCholesterol in VLDL Calc [Mass/Vol]Ordered By: Wes Chavse on 46-92-8329Kshtvojwjdq in VLDL [Mass/Vol]20 mg/dLOhiohealth Grant Medical CenterGlucose [Mass/volume] in Serum or PlasmaOrdered By: Wes Chaves on 87-99-3735Sxpknku [Mass/Vol]89 mg/dL Ymcubb30-966TsxkxkbwqOhiohealth Grant Medical CenterComment on above:ADA recommended reference rangeRandom Glucose Reference [...] reference rangePerformed By: #### LIPID, GLU #### [facility] [address] [place] [address] USALipid Panelon 86-35-5796TVT Cholesterol,Ozrspdrdck976 mg/dLHigh0-100The [facility] Physician GroupComment on above:Result Comment: LDL ATP III CLASSIFICATION LDL less than 100 mg/dL Optimal LDL 100-129 mg/dL Near or above optimal LDL 130-159 mg/dL Borderline high LDL 160-189 mg/dL High LDL greater than 189 mg/dL Very highPerformed By: #### LIPID, GLU #### [facility] [address] [place] [id number] USATriglyceride w/Nughdb167 mg/dLNormal0-149The [facility] Physician GroupComment on above:Result Comment: TRIG ATP III CLASSIFICATION TRIG less than 150 mg/dL Normal TRIG 150-199 mg/dL Borderline high TRIG 200-500 mg/dL High TRIG greater than 500 mg/dL Very high Standard traceable to the Center for Disease Conrtrol and Prevention (CDC) test method.Performed By: #### LIPID, GLU #### [place] [address] USAVLDL KIAWLYMELUP18 mg/dLNormalThMinidoka Memorial Hospital Physician GroupComment on above:Performed By: #### LIPID, GLU #### [place] [address] USASerum or plasma total cholesterol/high density lipoprotein (HDL) cholesterol mass ratOrdered By: Wes Chaves on 11-20-2024 Cholesterol.total/Cholesterol in HDL [Mass ratio]3.3 {ratio}Normal<5.0Ohio[facility] Medical CenterComment on above:Result Comment: PERFORMED BY: [place] [id number] PATHOLOGIST [employer] ADMINISTRATOR KADY NOGUERA M.D.Performed By: #### LIPID, GLU #### [place] [id number] USATriglyceride [Mass/volume] in Serum or PlasmaOrdered By: Wes Chaves on 08-87-7389Ajhiezlfwdtq [Mass/Vol]104 mg/dL0-149[facility] CenterComment on above:TRIG ATP III CLASSIFICATIONTRIG less than [...] noted. K-wire intact to the left 1st metatarsal.[facility] Study observation (narrative)[facility] KirkwoodCBC AND ELECTRONIC DIFFon 75-70-8134Nysisewbb (Bld) [#/Vol]0.08 10*3/uL0.00 - 0.15 K/uLOSU Genesis HospitalBasophils/100 WBC (Bld)1.2 %OSSelect Medical Ohiohealth Rehabilitation Hospital - DublinDifferential cell count method Nom (Bld)Electronic DifferentialOSU Genesis Hospital Eosinophils (Bld) [#/Vol]0.08 10*3/uL0.00 - 0.42 K/uLMercy Health Defiance Hospital Eosinophils/100 WBC (Bld)1.2 %[facility] HospitalErythrocyte distribution width (RBC) [Ratio]12.1 %10.8 - 14.9 %[facility] HospitalHematocrit (Bld) [Volume fraction]43.1 %34.9 - 44.3 %[facility] HospitalHemoglobin (Bld) [Mass/Vol]13.6 g/dL11.4 - 15.2 g/dLMercy Health Defiance HospitalImmature granulocytes (Bld) [#/Vol]K/uLNINF - 0.08 K/uLMercy Health Defiance HospitalImmature granulocytes/100 WBC (Bld)0.4 %[facility] HospitalInterpretation and review of laboratory resultsAbnormalOMercy Health Allen HospitalLymphocytes (Bld) [#/Vol]2.17 10*3/uL1.16 - 3.51 K/uLMercy Health Defiance HospitalLymphocytes/100 WBC (Bld)32.4 %[facility] HospitalH (RBC) [Entitic mass]28.4 pg25.9 - 33.9 pgOSU Middletown HospitalHC (RBC) [Mass/Vol]31.6 g/dL31.4 - 35.9 g/dLOSU Genesis HospitalMCV (RBC) [Entitic vol]90.0 fL79.6 - 97.7 [facility] Medical CenterMonocytes (Bld) [#/Vol]0.63 10*3/uL0.22 - 0.87 K/[facility]-FairhillMonocytes/100 WBC (Bld)9.4 %[facility] HospitalNeutrophils (Bld) [#/Vol]3.70 10*3/uL1.64 - 7.28 K/[facility]-FairhillNucleated RBC/100 WBC (Bld) [Ratio]0.0 %NINPomerene HospitalPlatelet mean volume (Bld) [Entitic vol]9.2 fL8.5 - 12.2 [facility] Medical CenterPlatelets (Bld) [#/Vol]482 10*3/cZXiof033 - 393 K/[facility]-FairhillRBC (Bld) [#/Vol] 4.79 10*6/uLCincinnati Shriners Hospitalegmented neutrophils/100 WBC (Bld)55.4 % [facility] HospitalWBC (Bld) [#/Vol]6.69 10*3/uL3.99 - 11.19 K/[facility] HospitalBasophils (Bld) [#/Vol]0.08 10*3/uLNormal0.00-0.15[facility] HospitalComment on above:Performed By: #### PTPTT #### [facility] (DEFAULT) [address] [address]Hvkuabdba/100 WBC (Bld)1.2 %NormalMarymount HospitalComment on above:Performed By: #### PTPTT #### [facility] (DEFAULT) [address] [address]KTWC STATUSElectronic DifferentialNormalOSt. Vincent HospitalComment on above:Performed By: #### PTPTT #### [facility] (DEFAULT) [address] [address]Cpiywarcjai (Bld) [#/Vol]0.08 10*3/uLNormal0.00-0.42[facility] HospitalComment on above:Performed By: #### PTPTT #### [facility] (DEFAULT) [address] [place] [address]Twgsgpjcadf/100 WBC (Bld)1.2 %[facility] HospitalComment on above:Performed By: #### PTPTT #### [facility] (DEFAULT) [address] [place] [address] 62916Zkgwfpnmsi (Bld) [Volume fraction]43.1 %Cygqjs83.9-44.3Marymount HospitalComment on above:Performed By: #### PTPTT #### [facility] (DEFAULT) [address] [place] [address] 00110Qjlvpkptbw (Bld) [Mass/Vol]13.6 g/dHThsubt45.4-15.2Marymount HospitalComment on above:Performed By: #### PTPTT #### [facility] (DEFAULT) [address] [place] [address] 81113Kmbjepxl Grans %0.4 %[facility] HospitalComment on above:Performed By: #### PTPTT #### [facility] (DEFAULT) [address] [place] [address] 77360Rjzupejc Grans Absolute<Normal<=0.08Marymount HospitalComment on above:Performed By: #### PTPTT #### [facility] (DEFAULT) [address] [place] [address] 93123Vjwxlyglezh (Bld) [#/Vol]2.17 10*3/uLNormal1.16-3.51Marymount HospitalComment on above:Performed By: #### PTPTT #### [facility] (DEFAULT) [address] [place] [address] 21476Cmobfadetwe/100 WBC (Bld)32.4 %NormalMarymount HospitalComment on above:Performed By: #### PTPTT #### [facility] (DEFAULT) [address] [place] [address] 14231COU (RBC) [Entitic vol]90.0 cXIspxbe85.6-97.7Marymount HospitalComment on above:Performed By: #### PTPTT #### [facility] (DEFAULT) [address] [place] [address] 69399Ntlv Cell Hgb28.4 ygSmxmlu43.9-33.9Marymount HospitalComment on above:Performed By: #### PTPTT #### [facility] (DEFAULT) [address] [place] [address] 26630Loxj Cell Hgb Conc31.6 g/lTUmhoqe64.4-35.9Marymount HospitalComment on above:Performed By: #### PTPTT #### [facility] (DEFAULT) [address] [place] [address] 96605Djgaxixbm (Bld) [#/Vol]0.63 10*3/uLNormal0.22-0.87Marymount HospitalComment on above:Performed By: #### PTPTT #### [facility] (DEFAULT) [address] [place] [address] 57209Brbzstmul/100 WBC (Bld)9.4 %NormalMarymount HospitalComment on above:Performed By: #### PTPTT #### [facility] (DEFAULT) [address] [place] [address] 79112Kcdkdvjoz RBC0.0 /100 WBCNormal<=0.2Marymount HospitalComment on above:Performed By: #### PTPTT #### [facility] (DEFAULT) [address] [place] [address] 87754Chzqisve mean volume (Bld) [Entitic vol]9.2 fLNormal8.5-12.2 Mary[facility] HospitalComment on above:Performed By: #### PTPTT #### [facility] (DEFAULT) [address] [place] [address] 20145Lhokajmic (Bld) [#/Vol]482 10*3/jSTsvn034-754GfnqMarymount HospitalComment on above:Performed By: #### PTPTT #### [facility] (DEFAULT) [address] [place] [address] 33515IVZ (Bld) [#/Vol]4.79 10*6/uLNormal3.91-5.04Marymount HospitalComment on above:Performed By: #### PTPTT #### [facility] (DEFAULT) [address] [place] [address] 73263YMG Cggsgpzruntc42.1 %Adkxsu52.8-14.9Marymount HospitalComment on above:Performed By: #### PTPTT #### [facility] (DEFAULT) [address] [place] [address] 72803Oaoq + Bands Auto55.4 %NormalMarymount HospitalComment on above:Performed By: #### PTPTT #### [facility] (DEFAULT) [address] [place] [address] 66755Oguo + Bands,Absolute Auto3.70 K/uLNormal1.64-7.28Marymount HospitalComment on above:Performed By: #### PTPTT #### [facility] (DEFAULT) [address] [place] [address] 63302VIW (Bld) [#/Vol]6.69 10*3/uLNormal3.99-11.19Mary[facility] HospitalComment on above:Performed By: #### PTPTT #### [facility] (DEFAULT) [address] [place] [address] 81624YDDI 7 (LYTES,BUN,CREA,GLUC)on 43-88-7104Ivtum gap [Moles/Vol] 12 mmol/L7 - 17 mmol/LOSU [facility] HospitalChloride [Moles/Vol]102 mmol/L98 - 108 mmol/[facility] HospitalCO2 [Moles/Vol]29 mmol/L21 - 31 mmol/[facility] HospitalCreatinine [Mass/Vol]1.19 mg/dL0.50 - 1.20 mg/dLMercy Health Defiance HospitaleGFR, CKD-EPI, Ffrtsd55- PINFOMercy Health Allen HospitalComment on above:Reported eGFR is based on the CKD-EPI 2020 equation using creatinine, age, and sex.Glucose [Mass/Vol]88 mg/dL70 - 99 mg/dLMercy Health Defiance Hospital Osmolality Calc [Osmolality]291OSSelect Medical Ohiohealth Rehabilitation Hospital - DublinPotassium [Moles/Vol]3.8 mmol/L3.5 - 5.0 mmol/[facility] Hospitalodium [Moles/Vol]139 mmol/L135 - 145 mmol/[facility] HospitalUrea nitrogen [Mass/Vol]17 mg/dL7 - 25 mg/dLMercy Health Defiance HospitalUrea nitrogen/Creatinine [Mass ratio]14 mg/mgMercy Medical CenterAnion gap [Moles/Vol]12 mmol/L Normal7-17Marymount HospitalComment on above:Performed By: #### CHM7 #### [facility] (DEFAULT) [address] [address]Mqiuodbs [Moles/Vol]102 mmol/AEwezlh95-849KmzxMarymount HospitalComment on above:Performed By: #### CHM7 #### [facility] (DEFAULT) [address] [place], [place] [address]XM9 [Moles/Vol]29 mmol/NDgjimd37-13QpjpMarymount HospitalComment on above:Performed By: #### CHM7 #### [facility] (DEFAULT) [address] 58[address]Lfcndnkzsr [Mass/Vol]1.19 mg/dLNormal0.50-1.20Marymount HospitalComment on above:Performed By: #### CHM7 #### [facility] (DEFAULT) [address] [place] [address] 31757NUI/1.73 sq M.predicted among non-blacks MDRD (S/P/Bld) [Vol rate/Area]61 mL/min/{1.73_m2}Normal>=60Marymount HospitalComment on above:Result Comment: Reported eGFR is based on the CKD-EPI 2020 equation using creatinine, age, and sex.Performed By: #### CHM7 #### [facility] (DEFAULT) [address] [place] [address] 06604Nxtzutb [Mass/Vol]88 mg/vNBbpclg50-73DvabMarymount HospitalComment on above:Performed By: #### CHM7 #### [facility] (DEFAULT) [address] [place] [address] 47129Asbxixgszo [Osmolality]291 mosm/ytMronho350-554ZsrmMarymount HospitalComment on above:Performed By: #### CHM7 #### [facility] (DEFAULT) [address] [place] [address] 40577Ycqhtjhkk [Moles/Vol]3.8 mmol/LNormal3.5-5.0Marymount HospitalComment on above:Performed By: #### CHM7 #### [facility] (DEFAULT) [address] [place] [address] 77933Ajvcqy [Moles/Vol]139 mmol/GMcnktx092-483CjxmMarymount HospitalComment on above:Performed By: #### CHM7 #### [facility] (DEFAULT) [address] [place] [address] 88244Ngsz nitrogen [Mass/Vol]17 mg/dLNormal7-25Marymount HospitalComment on above:Performed By: #### CHM7 #### [facility] (DEFAULT) [address] [place] [address] 13857Fzwt nitrogen/Creatinine [Mass ratio]14 mg/mgNormalOhio Ohiohealth Doctors Hospital Medical CenterComment on above:Performed By: #### CHM7 #### [facility] (DEFAULT) [address] [place], [place] [address]RXFARWWXUF REFLEX TO CULTURE PERFORMABLEon 09-18-2023 Appearance (U)ClearClearOMercy Health Allen HospitalBacteria LM Ql (Urine sed) ABSENTABSENTOSU Genesis HospitalColor (U)YellowYellowOSU Genesis HospitalEpithelial cells.squamous LM Ql (Urine sed)0-2/hpf0-2/hpf, 3-5/hpf = 1+[facility] HospitalGlucose Test strip (U) [Mass/Vol]NegativeNegativeMercy Health Defiance HospitalInterpretation and review of laboratory resultsAbOhioHealth Southeastern Medical CenterKetones (U) [Mass/Vol]NegativeNegativeOS[facility] Leukocyte esterase Test strip Ql (U)TraceAbnormalNegativeMercy Health Defiance HospitalNitrite Ql (U)NegativeNegativeMercy Health Defiance HospitalpH (U)7.0 [pH]5.0 - 7.0OS[facility] HospitalProtein (U) [Mass/Vol]NegativeNegativeOSU Genesis HospitalRBC (U) [#/Vol]NegativeNegativeOSU Genesis HospitalRBC LM.HPF (Urine sed) [#/Area]0-2OSU [facility]ain Hospitalpecific gravity (U) [Rel density]1.0081.001 - 1.035OS[facility] HospitalUrobilinogen (U) [Mass/Vol] 0.2 E.U./dL0.2 E.U/dL, 1.0 E.U/dLOSU Genesis HospitalWBC LM.HPF (Urine sed) [#/Area]0 - 5OS[facility] HospitalOSU Genesis HospitalAppearance (U) ClearNoalCGalion Community HospitalComment on above: Performed By: #### [id number] #### [facility] (DEFAULT) [address] [place], [place] [address]TiylizmrEGYNKLOvrpckSBJONITntgMarymount HospitalComment on above:Performed By: #### [id number] #### [facility] (DEFAULT) [address] [place] [address] 65380Nwtae UrineNegativeNormalNegCleveland Clinic Mentor HospitalComment on above:Performed By: #### [id number] #### [facility] (DEFAULT) [address] [place] [address] 17703Sitxb (U)YellowNormalYellowMarymount HospitalComment on above:Performed By: #### [id number] #### [facility] (DEFAULT) [address] [place] [address] 71693Zrdpxlm Ql (U)NegativeNormalNegCleveland Clinic Mentor HospitalComment on above:Performed By: #### [id number] #### [facility] (DEFAULT) [address] [place] [address] 23540Qcubumu Ql (U)NegativeNormalNegCleveland Clinic Mentor HospitalComment on above:Performed By: #### [id number] #### [facility] (DEFAULT) [address] [place] [address] 80752Ezjirhozh esterase Test strip Ql (U)TraceAbnormalNegCleveland Clinic Mentor HospitalComment on above:Performed By: #### [id number] #### [facility] (DEFAULT) [address] [place] [address] 74078Puxuekwl UrineNegativeNormalNegCleveland Clinic Mentor HospitalComment on above:Performed By: #### [id number] #### [facility] (DEFAULT) [address] [place] [address] 30407dI (U)7.0 [pH]Normal5.0-7.0Marymount HospitalComment on above:Performed By: #### [id number] #### [facility] (DEFAULT) [address] [place] [address] 99893Enwchfd UrineNegativeNormalNegCleveland Clinic Mentor HospitalComment on above:Performed By: #### [id number] #### [facility] (DEFAULT) [address] [place] [address] 08645YMR Axuqm8-7Rnwvmt7-0UcvfMarymount HospitalComment on above:Performed By: #### [id number] #### [facility] (DEFAULT) [address] [place] [address] 53591Hcllxeun [place] Urine1.670Yjowqh5.001-1.035Marymount HospitalComment on above:Performed By: #### [id number] #### [facility] (DEFAULT) [address] [place] [address] 73193Ofvxhqam/Epithelial Cells0-2/hpfNormal0-2/hpf, 3-5/hpf = 1+ Marymount HospitalComment on above:Performed By: #### [id number] #### [facility] (DEFAULT) [address] [place] [address] 44752Jpnwnroyzrem Urine0.2 E.U./dLNormal0.2 E.U/dL, 1.0 E.U/dLMarymount HospitalComment on above:Performed By: #### [id number] #### [facility] (DEFAULT) [address] [place] [address] 96251LHA Urine0 - 0Umdklv9 - 5Marymount HospitalComment on above:Performed By: #### [id number] #### [facility] (DEFAULT) [address] [place] [address] 19980PDX CREAon 92-11-0287Groxxumotq [Mass/Vol]1.02 mg/dL0.50 - 1.20 mg/dLMercy Health Defiance HospitaleGFR, CKD-EPI, Tfffhk03- PINFOSU Genesis HospitalComment on above:Reported eGFR is based on the CKD-EPI 2020 equation using creatinine, age, and sex.Urea nitrogen [Mass/Vol]14 mg/dL7 - 25 mg/dLMercy Health Defiance HospitalUrea nitrogen/Creatinine [Mass ratio]14 mg/mgOSU Genesis HospitalOSU Genesis HospitalCreatinine [Mass/Vol]1.02 mg/dL Normal0.50-1.20Mary[facility] HospitalComment on above: Performed By: #### CHM7 #### [facility] (DEFAULT) [address] [place] [address] 68199LOP/1.73 sq M.predicted among non-blacks MDRD (S/P/Bld) [Vol rate/Area]73 mL/min/{1.73_m2}Normal>=60Mary[facility] HospitalComment on above:Result Comment: Reported eGFR is based on the CKD-EPI 2020 equation using creatinine, age, and sex.Performed By: #### CHM7 #### [facility] (DEFAULT) [address] [place] [address] 46293Xhjh nitrogen [Mass/Vol]14 mg/dLNormal7-25Mary[facility] HospitalComment on above:Performed By: #### CHM7 #### [facility] (DEFAULT) [address] [place] [address] 93151Gpzu nitrogen/Creatinine [Mass ratio]14 mg/mgNoalOSt. Vincent HospitalComment on above:Performed By: #### CHM7 #### [facility] (DEFAULT) [address] [place] [address] 37760XMUHOJG AURIS SCREEN BY PCROrdered By: Tuan Liu on 00-07-3196Esbwhaz auris Screen by PCRNot detectedNot DetectedU Genesis HospitalInterpretation and review of laboratory resultsNormLakeHealth Beachwood Medical CenterThis test was performed using a real-time PCR assay. This test was developed, and its performance characteristics determined by [facility]. It has not been cleared or approved [...] by [facility]. It has not been cleared or approved by the FDA. The laboratory is regulated under CLIA as qualified to perform high-complexity testing. This test is used for clinical purposes. It should not be regarded as investigational or for research. [facility] CenterBUN CREAon 08-24-2023 Creatinine [Mass/Vol]1.16 mg/dL0.50 - 1.20 mg/dLMercy Health Defiance HospitaleGFR, CKD-EPI, Bkowxb80- PINFOSU Genesis HospitalComment on above:Reported eGFR is based on the CKD-EPI 2021 equation using creatinine, age, and sex.Urea nitrogen [Mass/Vol]12 mg/dL7 - 25 mg/dLMercy Health Defiance HospitalUrea nitrogen/Creatinine [Mass ratio]10 mg/mgMercy Medical CenterCreatinine [Mass/Vol]1.16 mg/dLNormal0.50-1.20Mary[facility] HospitalComment on above:Performed By: #### BCR #### [facility] (DEFAULT) [address] [place] [address] 19354GTW/1.73 sq M.predicted among non-blacks MDRD (S/P/Bld) [Vol rate/Area]63 mL/min/{1.73_m2}Normal>=60Mary[facility] HospitalComment on above:Result Comment: Reported eGFR is based on the CKD-EPI 2021 equation using creatinine, age, and sex.Performed By: #### BCR #### [facility] (DEFAULT) [address] [place], [place] [address]Mqly nitrogen [Mass/Vol]12 mg/dLNormal7-25Mary[facility] HospitalComment on above:Performed By: #### BCR #### [facility] (DEFAULT) [address] [place], [place] [address]Msxc nitrogen/Creatinine [Mass ratio]10 mg/mgNormalOhiThe Surgical Hospital at SouthwoodsComment on above:Performed By: #### BCR #### [facility] (DEFAULT) [address] [place] [address] 17345BFYJKYKNXP & HEMATOCRITon 52-32-2856Ubwbqwvweo (Bld) [Volume fraction]39.9 %34.9 - 44.3 %[facility] HospitalHemoglobin (Bld) [Mass/Vol] 12.8 g/dL11.4 - 15.2 g/dLMercy Health Defiance HospitalInterpretation and review of laboratory resultsNoQueen of the Valley Hospital Hematocrit (Bld) [Volume fraction]39.9 %Wkhnvv59.9-44.3Mary[facility] HospitalComment on above:Performed By: #### CHM7 #### [facility] (DEFAULT) [address] [place] [address] 39491Tqngvcskse (Bld) [Mass/Vol]12.8 g/hPYeszxo30.4-15.2Mary[facility] HospitalComment on above:Performed By: #### CHM7 #### [facility] (DEFAULT) [address] [place] [address] 34374ZFVU HCG, URINE (POC DEVICE)on 45-65-4308Hvxa HCG ( test) Ql (U)NegativeNegativeMercy Health Defiance HospitalInterpretation and review of laboratory resultsNoSt. Mary's Medical CenterTest performed at address of the patient encounter.[facility] CenterCANDIDA AURIS SCREEN BY PCRon [id number] auris Screen by PCRNot detectedNormal Not DetectedMarymount HospitalComment on above:Order Comment: This test was performed using a real-time PCR assay. This test was developed, and its performance characteristics determined by [facility]. It has not been cleared or approved [...] by [facility]. It has not been cleared or approved by the FDA. The laboratory is regulated under CLIA as qualified to perform high-complexity testing. This test is used for clinical purposes. It should not be regarded as investigational or for research.Performed By: #### RUBENS AURIS SCREEN BY PCR #### [facility] (DEFAULT) [address] [place] [address] 24222QLCMQQD RHYTHM (SCANNED)on 25-66-2128QCFMercy Health Defiance Hospital No Panel Informationon 56-60-0863Mwvgrn [facility] HospitalOSU Genesis HospitalPRE-TX LIVING DONOR SERUM SAMPLEon 61-84-9498Dfkbdd [facility] HospitalComment on above: Performed By: #### PTXSER #### [facility] (DEFAULT) [address] [place] [address] 94290Vbayu Comment: Ok to use EDTA tube.Performed By: #### PTPTT #### [facility] (DEFAULT) [address] [place] [address] 56827RS Unspecified body regionOrdered By: Unassigned Pacs on 96-62-0500FZDMercy Health Defiance Hospital Work Phone: [place] Unspecified body regionon 25-41-9601Eeuvircqh Study observation (narrative)[facility] HospitalBETA HCG, QUANT, BLOODon 00-54-7804VXL (Quant) Serum<2.6[facility] Comment on above:Result Comment: Non-: <10 [...] malignant disease.Performed By: #### PTPTT #### [facility] (DEFAULT) [address] [place], [place] [address]UTULICZwb 21-07-1875Hjeiqcv [Mass/Vol]9.4 mg/dL8.6 - 10.5 mg/dLMercy Health Defiance HospitalCalcium [Mass/Vol]9.4 mg/dLNormal8.6-10.5Mary[facility] HospitalComment on above:Performed By: #### PTPTT #### [facility] (DEFAULT) [address] [place], [place] [address]FQT,PLATELETSon 16-06-0095Nuvvolcqzsb distribution width (RBC) [Ratio]12.1 %10.8 - 14.9 %[facility] HospitalHematocrit (Bld) [Volume fraction]47.1 %High34.9 - 44.3 %[facility] HospitalHemoglobin (Bld) [Mass/Vol]14.8 g/dL11.4 - 15.2 g/dLMercy Health Defiance HospitalInterpretation and review of laboratory resultsAbnormLakeHealth Beachwood Medical CenterMCH (RBC) [Entitic mass]27.8 pg25.9 - 33.9 pgMercy Health Defiance HospitalMCHC (RBC) [Mass/Vol]31.4 g/dL31.4 - 35.9 g/dLMercy Health Defiance HospitalMCV (RBC) [Entitic vol]88.5 fL79.6 - 97.7 [facility]-Titus Medical CenterPlatelet mean volume (Bld) [Entitic vol]9.6 fL 8.5 - 12.2 [facility] Medical CenterPlatelets (Bld) [#/Vol]351 10*3/uL150 - 393 K/uLU Genesis HospitalRBC (Bld) [#/Vol]5.32 10*6/uLHighU Genesis HospitalWBC (Bld) [#/Vol]7.52 10*3/uL3.99 - 11.19 K/uLOSU Genesis HospitalOSU Genesis HospitalHematocrit (Bld) [Volume fraction]47.1 %High 34.9-44.3[facility] HospitalComment on above:Performed By: #### PTPTT #### [facility] (DEFAULT) [address] [place] [address] 76037Yuhcoaqtdg (Bld) [Mass/Vol]14.8 g/yFNlhpru81.4-15.2[facility] HospitalComment on above:Performed By: #### PTPTT #### [facility] (DEFAULT) [address] [place] [address] 95595YYG (RBC) [Entitic vol]88.5 hELywvzl22.6-97.7Mary[facility] HospitalComment on above:Performed By: #### PTPTT #### [facility] (DEFAULT) [address] [place] [address] 31308Dffa Cell Hgb27.8 klQvaabi62.9-33.9Mary[facility] HospitalComment on above:Performed By: #### PTPTT #### [facility] (DEFAULT) [address] [place] [address] 91212Izyz Cell Hgb Conc31.4 g/uKFmuaon38.4-35.9[facility] HospitalComment on above:Performed By: #### PTPTT #### [facility] (DEFAULT) [address] [place] [address] 50286Ggkfmwol mean volume (Bld) [Entitic vol]9.6 fLNormal8.5-12.2 [facility] HospitalComment on above:Performed By: #### PTPTT #### [facility] (DEFAULT) [address] [place] [address] 46762Rdmvtgvfi (Bld) [#/Vol]351 10*3/nPAcfayy463-487YiixMarymount HospitalComment on above:Performed By: #### PTPTT #### [facility] (DEFAULT) [address] [place], [place] [address]WRB (Bld) [#/Vol]5.32 10*6/uLHigh3.91-5.04Mary[facility] HospitalComment on above:Performed By: #### PTPTT #### [facility] (DEFAULT) [address] [place], [place] [address]TBP Xztfwqbzkiwm43.1 %Ubuomu82.8-14.9Mary[facility] HospitalComment on above:Performed By: #### PTPTT #### [facility] (DEFAULT) [address] [place], [place] [address]IPJ (Bld) [#/Vol]7.52 10*3/uLNormal3.99-11.19Mary[facility] HospitalComment on above:Performed By: #### PTPTT #### [facility] (DEFAULT) [address] [place] [address] 03413CRQK 7 (LYTES,BUN,CREA,GLUC)on 35-64-4684Lhhwb gap [Moles/Vol] 14 mmol/L7 - 17 mmol/[facility] HospitalChloride [Moles/Vol]105 mmol/L98 - 108 mmol/[facility] HospitalCO2 [Moles/Vol]25 mmol/L21 - 31 mmol/[facility] HospitalCreatinine [Mass/Vol]0.80 mg/dL0.50 - 1.20 mg/dLMercy Health Defiance HospitaleGFR, CKD-EPI, Female- PINFOMercy Health Allen HospitalComment on above:Reported eGFR is based on the CKD-EPI 2020 equation using creatinine, age, and sex.Glucose [Mass/Vol]100 mg/gNXcit72 - 99 mg/dLMercy Health Defiance Hospital Interpretation and review of laboratory resultsAbnoSt. Mary's Medical Center Osmolality Calc [Osmolality]293OS[facility] HospitalPotassium [Moles/Vol]4.0 mmol/L3.5 - 5.0 mmol/[facility] Hospitalodium [Moles/Vol]140 mmol/L135 - 145 mmol/LOSU [facility] HospitalUrea nitrogen [Mass/Vol]14 mg/dL7 - 25 mg/dLOSU Genesis HospitalUrea nitrogen/Creatinine [Mass ratio]18 mg/mgOSU Genesis HospitalAnion gap [Moles/Vol]14 mmol/LNormal7-17[facility] HospitalComment on above:Performed By: #### PTPTT #### [facility] (DEFAULT) [address] [place] [address] 24004Iwfaztny [Moles/Vol]105 mmol/HYwvqdj87-785MmhrMarymount HospitalComment on above:Performed By: #### PTPTT #### [facility] (DEFAULT) [address] [place] [address] 62017PV5 [Moles/Vol]25 mmol/ZMvxkay05-64ExxqMarymount HospitalComment on above:Performed By: #### PTPTT #### [facility] (DEFAULT) [address] [place] [address] 98223Uqupylfujz [Mass/Vol]0.80 mg/dLNormal0.50-1.20[facility] HospitalComment on above:Performed By: #### PTPTT #### [facility] (DEFAULT) [address] [place] [address] 24796eFQT, CKD-EPI, Female>Normal>=60Mary[facility] HospitalComment on above:Result Comment: Reported eGFR is based on the CKD-EPI 1 equation using creatinine, age, and sex.Performed By: #### PTPTT #### [facility] (DEFAULT) [address] [place] [address] 76792Lenigjd [Mass/Vol]100 mg/tPFwbi93-00ZgmqMarymount HospitalComment on above:Performed By: #### PTPTT #### [facility] (DEFAULT) [address] [place] [address] 34337Attfpnsbbq [Osmolality]293 mosm/hoRcopwn984-460WvrqMarymount HospitalComment on above:Performed By: #### PTPTT #### [facility] (DEFAULT) [address] [place] [address] 33320Lbyyirpsq [Moles/Vol]4.0 mmol/LNormal3.5-5.0Mary[facility] HospitalComment on above:Performed By: #### PTPTT #### [facility] (DEFAULT) [address] [place] [address] 45715Skvhqb [Moles/Vol]140 mmol/CAalmjb556-510ZqikMarymount HospitalComment on above:Performed By: #### PTPTT #### [facility] (DEFAULT) [address] [place] [address] 02307Rtmc nitrogen [Mass/Vol]14 mg/dLNormal7-25Mary[facility] HospitalComment on above:Performed By: #### PTPTT #### [facility] (DEFAULT) [address] [place] [address] 48401Dlup nitrogen/Creatinine [Mass ratio]18 mg/mgNoSelect Medical Cleveland Clinic Rehabilitation Hospital, AvonComment on above:Performed By: #### PTPTT #### [facility] (DEFAULT) [address] [place] [address] 39818EWA IGG/IGM TOTAL - CIBCon 54-00-4763FVG Antibody (total IgG/IgM)NegativeTrumbull Memorial HospitalComment on above:Result Comment: [id number] Testing performed by [address] [place] [address]Zgmwtqgjr By: #### PTPTT #### [facility] (DEFAULT) [address] [place] [address] 17310UYMSMB PERFOMABLEon 27-29-9435CAR [id number] Memorial HospitalComment on above:Result Comment: Testing performed by [address], [place] [address]Aqoofcwpr By: #### [id number] #### [facility] (DEFAULT) [address] [place] [address] 00148Krmspm Antibody (T. cruzi)NegativeTrumbull Memorial HospitalComment on above:Result Comment: Testing performed by [address], [place] [address]Dkefoccwh By: #### [id number] #### [facility] (DEFAULT) [address] [place] [address] 29583JXV CARY (IDT)NegativeTrumbull Memorial HospitalComment on above:Result Comment: Testing performed by [address], [place] [address]Eeugfidjv By: #### [id number] #### [facility] (DEFAULT) [address] [place] [address]MNY CARY (IDT)NegativeTrumbull Memorial HospitalComment on above:Result Comment: Testing performed by [address], [place] [address]Atepmaipm By: #### [id number] #### [facility] (DEFAULT) [address] [place] [address] 37902Fsonjfrcb B Core AntibodyNegativeTrumbull Memorial HospitalComment on above:Result Comment: Testing performed by [address], [place] [address]Zbbqnfpae By: #### [id number] #### [facility] (DEFAULT) [address] [address]Mwpwseryj B Surface AntigenNegativeTrumbull Memorial HospitalComment on above:Result Comment: Testing performed by [address], [place] [address]Rchqfqzhm By: #### [id number] #### [facility] (DEFAULT) [address] [address]Huznshyko C Virus AntibodyNegativeTrumbull Memorial HospitalComment on above:Result Comment: Testing performed by [address], [place] [address]Nwfvtskhv By: #### [id number] #### [facility] (DEFAULT) [address] [place] [address] 40261DNK CARY (IDT)NegativeTrumbull Memorial HospitalComment on above:Result Comment: Testing performed by [address] [place] [address]Arbxytruu By: #### [id number] #### [facility] (DEFAULT) [address] [place] [address]98[address]ZMR-0/2/O AntibodyNegativeTrumbull Memorial HospitalComment on above:Result Comment: Testing performed by [address], [place] [address]Sbepeykfu By: #### [id number] #### [facility] (DEFAULT) [address] [address]Yadp Nile Virus CARY (IDT)NegativeTrumbull Memorial HospitalComment on above:Result Comment: Testing performed by [address], [place] [address]Bzxvyedeq By: #### [id number] #### [facility] (DEFAULT) [address] [address]KMA VCA IGG ABon 30-55-9915XFB capsid IgG Ql (S)Positive AbnormalNegativeMercy Health Defiance HospitalInterpretation and review of laboratory resultsAbnoSt. Mary's Medical CenterOSSelect Medical Ohiohealth Rehabilitation Hospital - DublinEBV VCA IgG AntibodyPositiveAbnormalNegativeOhMercy Health St. Charles Hospital Comment on above:Performed By: #### PTPTT #### [facility] (DEFAULT) [address] [place] [address]XQP ( test) QlOrdered By: Cathy Lubin on 08-12-2023 HCG.beta subunit [Moles/Vol]mIU/mLMercy Health Defiance HospitalComment on above:Non- : <10 mIU/mL Postmenopause: <10 mIU/mL Male: <10 mIU/mL FEMALE GESTATIONAL AGE 2-4 Weeks: 39.1-8,388 mIU/mL 5-6 Weeks: 861-88,769 mIU/mL 6-8 Weeks: 8,636-218,085 mIU/mL 8-10 Weeks: 18,700-244,467 mIU/mL 10-12 Weeks: 23,143-181,899 mIU/mL 13-27 Weeks: 6,303-97,171 mIU/mL 24-40 Weeks: 4,360-74,883 mIU/mL Test results cannot be interpreted as absolute evidence for the presence or absence of malignant disease. [facility] HospitalMAGNESIUMon 35-32-1082Yzhyaayqx [Mass/Vol]1.8 mg/dL1.6 - 2.6 mg/dLMercy Health Defiance HospitalMagnesium [Mass/Vol]1.8 mg/dLNormal1.6-2.6 [facility] HospitalComment on above:Performed By: #### PTPTT #### [facility] (DEFAULT) [address] [address]Os Panel Informationon 58-15-7162Iaafotjtdbudat and review of laboratory resultsNormWestlake Outpatient Medical Center PHOSPHATE, INORGANICon 17-89-3045Ntblgducv [Mass/Vol]2.7 mg/dL2.2 - 4.6 mg/dLMercy Health Defiance HospitalPhosphorous2.7 mg/dLNormal2.2-4.6[facility] HospitalComment on above:Performed By: #### PTPTT #### [facility] (DEFAULT) [address] [address]JH,INR,PTTon 70-81-2219kKKA Coag (PPP) [Time]26.0 [facility] - AndersonINR Coag (Bld) [Relative time]1.0 {INR}0.9 - 1.1[facility] HospitalInterpretation and review of laboratory resultsNoSt. Mary's Medical CenterPT Coag (PPP) [Time]13.2 [facility] HospitalaPTT Coag (Bld) [Time]26.0 rOtwcrd63.0-34.3[facility]ner Medical CenterComment on above:Performed By: #### PTPTT #### [facility] (DEFAULT) [address] [address]UTC Coag (PPP) [Relative time]1.0 {INR}Normal0.9-1.1[facility] HospitalComment on above:Performed By: #### PTPTT #### [facility] (DEFAULT) [address] [address]OM Coag (PPP) [Time]13.2 lKuiktv72.9-14.2Mary[facility] HospitalComment on above:Performed By: #### PTPTT #### [facility] (DEFAULT) [address] [address]RTU (CIBC)on 71-23-9965Ljvrrbvqt (PK-TP)NegativeTrumbull Memorial HospitalComment on above:Result Comment: [id number] Testing performed by [facility] Blood [address] [place] [address]Awitfzitd By: #### XRPR #### [facility] (DEFAULT) [address] [address]LTSF AND SCREEN - PREADMISSIONon 07-99-4740COE/RH(D) TYPE PositiveTrumbull Memorial HospitalComment on above: Performed By: #### XMPO #### [facility] (DEFAULT) [address] [address]NAMFQLAVQQ REFLEX TO CULTURE PERFORMABLEon 08-12-2023 Appearance (U)ClearClearOMercy Health Allen HospitalBacteria LM Ql (Urine sed) ABSENTABSENTOSSelect Medical Ohiohealth Rehabilitation Hospital - DublinColor (U)YellowYellowMercy Health Defiance HospitalEpithelial cells.squamous LM Ql (Urine sed)0-2/hpf0-2/hpf, 3-5/hpf = 1+[facility] HospitalGlucose Test strip (U) [Mass/Vol]NegativeNegativeMercy Health Defiance HospitalInterpretation and review of laboratory resultsAbnormalOSU Genesis HospitalKetones (U) [Mass/Vol]NegativeNegativeOSU [facility] HospitalLeukocyte esterase Test strip Ql (U)TraceAbnormalNegativeOSU Genesis HospitalNitrite Ql (U)NegativeNegativeOSSelect Medical Ohiohealth Rehabilitation Hospital - DublinpH (U)7.0 [pH]5.0 - 7.0OS[facility] HospitalProtein (U) [Mass/Vol]NegativeNegativeOSU [facility] HospitalRBC (U) [#/Vol]NegativeNegativeOSU [facility] HospitalRBC LM.HPF (Urine sed) [#/Area]0-2OSU [facility]ain Hospitalpecific gravity (U) [Rel density]1.0071.001 - 1.035OS[facility] HospitalUrobilinogen (U) [Mass/Vol]0.2 E.U./dL0.2 E.U/dL, 1.0 E.U/dLOSU Genesis HospitalWBC LM.HPF (Urine sed) [#/Area]0 - 5OS[facility] HospitalOSU [facility] Appearance (U)ClearNormalClearMarymount HospitalComment on above:Performed By: #### CHM7 #### [facility] (DEFAULT) [address] [place] [address]AbmdoxwiOUWAQAVijvylYIZQJSImphMarymount HospitalComment on above:Performed By: #### CHM7 #### [facility] (DEFAULT) [address] [place] [address]Ttjqk UrineNegativeNormalNegativeMarymount HospitalComment on above:Performed By: #### CHM7 #### [facility] (DEFAULT) [address] [place] [address]Idogv (U)YellowNormalYellowMarymount HospitalComment on above:Performed By: #### CHM7 #### [facility] (DEFAULT) [address] [place] [address]Sptxrhx Ql (U)NegativeNormalNegativeMarymount HospitalComment on above:Performed By: #### CHM7 #### [facility] (DEFAULT) [address] [place] [address]Aefhvhh Ql (U)NegativeNormalNegativeMarymount HospitalComment on above:Performed By: #### CHM7 #### [facility] (DEFAULT) [address] [place] [address]Bcmjynsqf esterase Test strip Ql (U)TraceAbnormalNegCleveland Clinic Mentor HospitalComment on above:Performed By: #### CHM7 #### [facility] (DEFAULT) [address] [place] [address]Mlxiursz UrineNegativeNormalNegCleveland Clinic Mentor HospitalComment on above:Performed By: #### CHM7 #### [facility] (DEFAULT) [address] [place] [address] 02176bU (U)7.0 [pH]Normal5.0-7.0[facility] HospitalComment on above:Performed By: #### CHM7 #### [facility] (DEFAULT) [address] [place] [address]Jdtahjl UrineNegativeNormalNegCleveland Clinic Mentor HospitalComment on above:Performed By: #### CHM7 #### [facility] (DEFAULT) [address] [place] [address]NIL Twaeh8-3Oleqji3-6YqerMarymount HospitalComment on above:Performed By: #### CHM7 #### [facility] (DEFAULT) [address] [place] [address]Kfauoxsy [place] Urine1.374Gsxkmc0.001-1.035Mary[facility] HospitalComment on above:Performed By: #### CHM7 #### [facility] (DEFAULT) [address] [place] [address]Iktniffq/Epithelial Cells0-2/hpfNormal0-2/hpf, 3-5/hpf = 1+ [facility] HospitalComment on above:Performed By: #### CHM7 #### [facility] (DEFAULT) [address] [place] [address]Aevgifkkzjhu Urine0.2 E.U./dLNormal0.2 E.U/dL, 1.0 E.U/dLMarymount HospitalComment on above:Performed By: #### CHM7 #### [facility] (DEFAULT) [address] [place], [place] [address]KXD Urine0 - 2Sscqtu2 - 5Marymount HospitalComment on above:Performed By: #### CHM7 #### [facility] (DEFAULT) [address] [place] [address]MR CHEST PA AND LATERAL 2 VIEWSon 37-88-7188MO CHEST PA AND LATERAL 2 VIEWSEXAM: XR [...] I have reviewed and approved this report. NormalMarymount HospitalXR Chest PA and Lateralon 12-06-4332AFKRAZLDTB: No acute cardiopulmonary disease I personally viewed [...] I have reviewed and approved this report. [facility] Hospital - DublinRadiology Study observation (narrative)[facility] HospitalXR Chest PA and LateralOrdered By: Sabrina Silvestre on 21-64-1956DXZMercy Health Defiance Hospital Work Phone: mr Abdomen WO and [...] Normal. Bones: Benign hemangiomas. No aggressive lesion RADIOLOGYGeBlanka barton MD - 06/25/2023 EXAM: MRI ABDOMEN WITH [...] be a small FNH or a shunt. [facility] HospitalMR Abdomen WO and W contrast IVOrdered By: Blanka Mcgraw on 03-60-4519QPUMercy Health Defiance Hospital Work Phone: MR Abdomen WO and W contrast Charlene 67-83-0996Hqgerrdzo Study observation (narrative)[facility] HospitalXR Chest PA and Lateralon 01-13-2566QSBBCLLKTY: No acute cardiopulmonary disease RADIOLOGYEXAM: XR CHEST [...] Normal IMPRESSION IMPRESSION: No acute cardiopulmonary disease [facility] HospitalRadiology Study observation (narrative)[facility] HospitalXR Chest PA and LateralOrdered By: Sabrina Silvestre on 52-17-7056COZ [facility] Work Phone: HLM TYPING (SOLID ORGAN)on 77-77-2449HS7,6[facility] HospitalDPA1*01:03[facility] HospitalDPA11-[facility] DPB1* DKQ6551:01[facility] HospitalDPB1*YUO3C27:01[facility] HospitalDQA1*01:02[facility] HospitalDQA1*YZS8734:01[facility] HospitalDQB18,6[facility] HospitalDQB1*03:02[facility] HospitalDQB1* - ITB2799:02[facility] HospitalDR4,15[facility] HospitalDR51,52,53 53,51[facility] HospitalDRB1*04:01[facility] HospitalDRB1* - DRB11 15:01[facility] HospitalDRB4*01:03[facility] HospitalDRB5*01:01[facility] HospitalHLA A*02:01[facility] HospitalHLA A* - HLAAA31:01[facility] HospitalHLA B*13:02[facility] HospitalHLA B* - DZASPB88:01[facility] HospitalHLA C*03:03[facility] HospitalHLA C* - HLACC06:02OSSelect Medical Ohiohealth Rehabilitation Hospital - DublinHLA INTERPRETATIONLISTED AMBIGUITIES ARE NOT EXCLUDED: DPB1*1315:01 DPB1*1321:03/1321:03/1435:03/1443:01QOSSelect Medical Ohiohealth Rehabilitation Hospital - DublinComment on above: Testing performed by NGS (next-generation [...] need for FDA approval.Testing performed by the [facility] Clinical Histocompatibility Laboratory. [facility] number: [id number]. CLIA number: [id number], Director: Jamal Jim, PhD, F([facility]). HLA-A High resolution Nom (Bld/Tiss)2,31[facility] HospitalHLA-B SBT High resolution Nom (Bld/Tiss)13,62[facility] HospitalHLA-C SBT High resolution Nom (Bld/Tiss)9,6[facility] University HospitalCA 125on 19-62-4628Vazmfo Ag 125 Qn17 [arb'U]/mLNINF - 30 U/mLMercy Health Defiance Hospital Comment on above:This test was performed on the Siem[employer] IM Immunoassay platform which is a 2-step sandwich chemiluminescent immunoassay. It is important to note that assays using different manufacturers and/or methods may not be comparable.Interpretation and review of laboratory resultsNormalOSU Cooper University HospitalCEAon 65-92-5416Nlcaodffvauddoxp Ag [Mass/Vol]ng/mLNINF - 5.0 ng/mLMercy Health Defiance HospitalComment on above:This test was performed on the Siemens [employer] IM Immunoassay platform which is a 2-step sandwich chemiluminescent immunoassay. It is important to note that assays using different manufacturers and/or methods may not be comparable. Interpretation and review of laboratory resultsNoSt. Mary's Medical Center OSU Genesis HospitalOXALATE, 24HR URINEon 36-88-9597Fcirdrsomz duration (U) 24 hOSU Genesis HospitalOxalate (24H U) [Mass/Time]27.3[facility] HospitalOxalate (24H U) [Moles/Time]0.31[facility] HospitalComment on above: ADDITIONAL INFORMATION This test has been modified from the manager of disaster recovery's instructions. Its performance characteristics were determined by [facility] in a manner consistent with CLIA requirements. This test has not been cleared or approved by the U.S. Food and Drug Administration. Specimen volume (24H U)4.387 LOSSelect Medical Ohiohealth Rehabilitation Hospital - DublinComment on above: Test Performed by: [place] [address] Community Engagement Specialist: Brennan Cummings M.D. Ph.D.; CLIA# [id number] [facility] HospitalDLIDON PERFOMABLEon 56-29-0605PWN [id number] Health Defiance HospitalComment on above:Testing performed by [address] [place] [address] [place] Antibody (T. cruzi)NegativeMercy Health Defiance HospitalComment on above: Testing performed by [address] [place] [address] HBV CARY (IDT)NegativeMercy Health Defiance HospitalComment on above:Testing performed by [address] [place] [address] HCV CARY (IDT)NegativeMercy Health Defiance HospitalComment on above:Testing performed by [address] [place] [address] Hepatitis B Core AntibodyNegativeMercy Health Defiance HospitalComment on above: Testing performed by [address] [place] [address] Hepatitis B Surface AntigenNegativeMercy Health Defiance HospitalComment on above: Testing performed by [address] [place] [address] Hepatitis C Virus AntibodyNegativeMercy Health Defiance HospitalComment on above: Testing performed by [address] [place] [address] HIV CARY (IDT)NegativeMercy Health Defiance HospitalComment on above:Testing performed by [address] [place] [address] HIV-1/2/O AntibodyNegativeMercy Health Defiance HospitalComment on above:Testing performed by [address] [place] [address] West Nile Virus CARY (IDT)NegativeMercy Health Defiance HospitalComment on above: Testing performed by [address] [place] [address] [facility] HospitalLaboratory - Chemistry and Chemistry - challengeon 67-63-6365Xbhbymp (24H U) [Mass/Time]439[facility] HospitalComment on above: ADDITIONAL INFORMATION This test was developed and its performance characteristics determined by [facility] in a manner consistent with CLIA requirements. This test has not been cleared or approved by the U.S. Food and Drug Administration. Laboratory - Specimen informationon 79-05-9072Kerccmnzke duration (U)24 [facility] Hospitalpecimen volume (24H U)4.387 [facility] Comment on above: Test Performed by: [facility] - [address] [address] Community Engagement Specialist: Brennan Cummings M.D. Ph.D.; CLIA# [id number] No Panel Informationon 82-62-3374NOQMercy Health Defiance HospitalNo Panel Information Ordered By: Juide Reeves on 42-60-8727FSL Antibody (total IgG/IgM)Negative [facility] HospitalComment on above:[id number] Testing performed by [address] [place] [address] OSSelect Medical Ohiohealth Rehabilitation Hospital - DublinRPR (CIBC)on 77-66-8478Xhikqblzg (PK-TP)NegativeOSSelect Medical Ohiohealth Rehabilitation Hospital - DublinComment on above:[id number] Testing performed by [address] [place] [address] OSSelect Medical [facility] Rehabilitation Hospital - DublinCBC AND ELECTRONIC DIFFon 12-56-7551Oawlkhkrh (Bld) [#/Vol]0.07 10*3/uL0.00 - 0.15 K/uLOSSelect Medical Ohiohealth Rehabilitation Hospital - DublinBasophils/100 WBC (Bld)0.8 %[facility] HospitalDifferential cell count method Nom (Bld) Electronic DifferentialOSSelect Medical Ohiohealth Rehabilitation Hospital - DublinEosinophils (Bld) [#/Vol]K/uL 0.00 - 0.42 K/uLMercy Health Defiance HospitalEosinophils/100 WBC (Bld)0.0 %[facility] HospitalErythrocyte distribution width (RBC) [Ratio]12.2 %10.8 - 14.9 %[facility] HospitalHematocrit (Bld) [Volume fraction]47.4 %High34.9 - 44.3 %[facility] HospitalHemoglobin (Bld) [Mass/Vol]15.3 g/iTWtol71.4 - 15.2 g/dLMercy Health Defiance HospitalImmature granulocytes (Bld) [#/Vol]0.05 10*3/uLNINF - 0.08 K/uLMercy Health Defiance HospitalImmature granulocytes/100 WBC (Bld)0.6 %[facility] HospitalInterpretation and review of laboratory resultsAbnormalOSU Genesis HospitalLymphocytes (Bld) [#/Vol]1.96 10*3/uL 1.16 - 3.51 K/uLOSU [facility] HospitalLymphocytes/100 WBC (Bld)21.9 %[facility] HospitalH (RBC) [Entitic mass]28.8 pg25.9 - 33.9 pgOSSelect Medical Ohiohealth Rehabilitation Hospital - DublinMCHC (RBC) [Mass/Vol]32.3 g/dL31.4 - 35.9 g/dLMercy Health Defiance HospitalMCV (RBC) [Entitic vol]89.3 fL79.6 - 97.7 [facility] Monocytes (Bld) [#/Vol]0.49 10*3/uL0.22 - 0.87 K/[facility] Monocytes/100 WBC (Bld)5.5 %[facility] HospitalNeutrophils (Bld) [#/Vol] 6.39 10*3/uL1.64 - 7.28 K/[facility] Cleveland-FairhillNucleated RBC/100 WBC (Bld) [Ratio]0.0 %NINPomerene HospitalPlatelet mean volume (Bld) [Entitic vol]9.1 fL8.5 - 12.2 [facility] Medical CenterPlatelets (Bld) [#/Vol]439 10*3/tXAkqg867 - 393 K/[facility] Cleveland-FairhillRBC (Bld) [#/Vol]5.31 10*6/uL HighCincinnati Shriners Hospitalegmented neutrophils/100 WBC (Bld)71.2 %[facility] HospitalWBC (Bld) [#/Vol]8.96 10*3/uL3.99 - 11.19 /[facility] HospitalHCG ( test) Ql 50-25-1220ONS.beta subunit [Moles/Vol]3.9 mmol/LmIU/mLMercy Health Defiance HospitalComment on above: Non-: <10 mIU/mL Postmenopause: <10 mIU/mL Male: <10 mIU/mL FEMALE GESTATIONAL AGE 2-4 Weeks: 39.1-8,388 mIU/mL 5-6 Weeks: 861-88,769 mIU/mL 6-8 Weeks: 8,636-218,085 mIU/mL 8-10 Weeks: 18,700-244,467 mIU/mL 10-12 Weeks: 23,143-181,899 mIU/mL 13-27 Weeks: 6,303-97,171 mIU/mL 24-40 Weeks: 4,360-74,883 mIU/mL Test results cannot be interpreted as absolute evidence for the presence or absence of malignant disease. [facility] HospitalLaboratory - Chemistry and Chemistry - challengeon 51-38-4919Srumhmv DL <= 20 mg/L (24H U) [Mass/Time][facility] Comment on above:Not CalculatedAlbumin DL <= 20 mg/L (U) [Mass/Vol]mg/Lmg/LOSU [facility] HospitalCreatinine (24H U) [Mass/Vol]34.14 mg/dLOSU [facility] HospitalCreatinine (24H U) [Mass/Vol]1.50OSU [facility] Hospitalodium (24H U) [Moles/Vol]50 mmol/LOSU [facility] Hospitalodium (24H U) [Moles/Vol]219OS[facility] HospitalCalcium (24H U) [Mass/Time]5.3 mg/dLOSSelect Medical Ohiohealth Rehabilitation Hospital - DublinCalcium (24H U) [Mass/Time]232.5OS[facility] HospitalUrate (24H U) [Mass/Time]0.8[facility] HospitalUrate (U) [Mass/Vol]18.9 mg/dLMercy Health Defiance HospitalCreatinine [Mass/Vol]0.65 mg/dL0.50 - 1.20 mg/dLMercy Health Defiance HospitalAverage glucose Estimated from glycated hemoglobin (Bld) [Mass/Vol]88 mg/dLMercy Health Defiance HospitalAlbumin DL <= 20 mg/L (U) [Mass/Vol]mg/Lmg/LOSU [facility] HospitalAlbumin/Creatinine DL <= 20 mg/L (U) [Ratio][facility] HospitalComment on above:Not CalculatedCreatinine (24H U) [Mass/Vol]38.96 mg/dLMercy Health Defiance HospitalCreatinine (24H U) [Mass/Vol]39.32 mg/dLMercy Health Defiance HospitalAlbumin [Mass/Vol]4.7 g/dL3.5 - 5.0 g/dLMercy Health Defiance Hospital ALP [Catalytic activity/Vol]50 U/L32 - 126 U/LOSU [facility] HospitalALT [Catalytic activity/Vol]22 U/L9 - 48 U/[facility] HospitalAnion gap [Moles/Vol]15 mmol/L7 - 17 mmol/[facility] HospitalAST [Catalytic activity/Vol]25 U/L10 - 39 U/[facility] HospitalBilirubin [Mass/Vol]0.5 mg/dLNINF - 1.5 mg/dLOSU Genesis HospitalBilirubin.direct [Mass/Vol]0.1 mg/dLNINF - 0.3 mg/dLOSSelect Medical Ohiohealth Rehabilitation Hospital - DublinCalcium [Mass/Vol]9.6 mg/dL8.6 - 10.5 mg/dLOSSelect Medical [facility] Rehabilitation Hospital - DublinChloride [Moles/Vol]101 mmol/L98 - 108 mmol/L [facility] HospitalCO2 [Moles/Vol]26 mmol/L21 - 31 mmol/[facility] HospitalCreatinine [Mass/Vol]0.65 mg/dL0.50 - 1.20 mg/dLOSSelect Medical [facility] Rehabilitation Hospital - DublinGamma glutamyl transferase [Catalytic activity/Vol]16 U/L8 - 64 U/[facility] HospitalGlucose [Mass/Vol]85 mg/dL70 - 99 mg/dLMercy Health Defiance HospitalLDH Lactate to pyruvate reaction [Catalytic activity/Vol]178 U/L100 - 190 U/[facility] HospitalMagnesium [Mass/Vol]2.0 mg/dL1.6 - 2.6 mg/dLOSSelect Medical [facility] Rehabilitation Hospital - DublinOsmolality Calc [Osmolality]288[facility] Phosphate [Mass/Vol]3.0 mg/dL2.2 - 4.6 mg/dLOSSelect Medical [facility] Rehabilitation Hospital - DublinPotassium [Moles/Vol]3.6 mmol/L3.5 - 5.0 mmol/[facility] HospitalProtein [Mass/Vol] 8.2 g/dL6.4 - 8.3 g/dLOSHighland District Hospitalodium [Moles/Vol]138 mmol/L135 - 145 mmol/LOSU [facility] HospitalUrea nitrogen [Mass/Vol]15 mg/dL7 - 25 mg/dL [facility] HospitalUrea nitrogen/Creatinine [Mass ratio]23 mg/mgOSU Genesis HospitalUrate [Mass/Vol]3.4 mg/dL2.8 - 6.0 mg/dLOSSelect Medical [facility] Dublin pH (U)7.0 [pH]5.0 - 7.0OSHighland District Hospitalpecific gravity (U) [Rel density]1.0071.001 - 1.035OS[facility] HospitalUrobilinogen (U) [Mass/Vol] 0.2 E.U./dL0.2 E.U/dL, 1.0 E.U/dLMercy Health Defiance HospitalLaboratory - Chemistry and Chemistry - challengeOrdered By: Nora Langford on 00-89-6645Alchdmc (24H U) [Mass/Time][facility] HospitalComment on above: Not Calculated Laboratory - Coagulationon 54-75-9707kKYU Coag (PPP) [Time]27.2 [facility] - AndersonINR Coag (Bld) [Relative time]0.9 {INR}0.9 - 1.1[facility] HospitalPT Coag (PPP) [Time]12.4 [facility] AndersonLaboratory - Fertility testingOrdered By: Nora Langford on 93-65-2069Whqxzdoy volume (Deon)4387 mLMercy Health Defiance HospitalLaboratory - Fertility testingon 53-89-6335Dkfgptkf volume (Deon)4387 mLCincinnati Shriners Hospitalpecimen volume (Deon)4387 mLCincinnati Shriners Hospitalpecimen volume (Deon)4387 mLMercy Health Defiance HospitalLaboratory - Hematology and Cell countson 99-54-1594QjH6k (Bld) [Mass fraction]4.7 %4.7 - 5.6 %OSSelect Medical Ohiohealth Rehabilitation Hospital - DublinLaboratory - Microbiology and Antimicrobial susceptibilityon 86-03-1180BOF capsid IgG Ql (S)PositiveAbnormalNegativeOSSelect Medical [facility] Rehabilitation Hospital - DublinLaboratory - Specimen informationOrdered By: Nora Langford on 98-44-8787Obehouebpn interval from baseline (Specimen) [Time]24hrs [facility] HospitalLaboratory - Specimen informationon 06-10-2023 Collection interval from baseline (Specimen) [Time]24hrsOSU Genesis HospitalCollection interval from baseline (Specimen) [Time]24hrsOSU [facility] HospitalCollection interval from baseline (Specimen) [Time]24hrsOSU [facility] HospitalAppearance (U)ClearClearOSU Genesis HospitalColor (U)Yellow YellowOSU [facility] HospitalLaboratory - UrinalysisOrdered By: Nora Langford on 79-49-5473Bblitgt Unsp time (U) [Mass/Vol]mg/dLmg/dLOSU [facility] HospitalLaboratory - UrinalysisOrdered By: Pawel Ruffin on 06-10-2023 Protein Unsp time (U) [Mass/Vol]mg/dLmg/dLOSU [facility] HospitalLaboratory - Urinalysison 07-57-5981Vbntlswk LM Ql (Urine sed)ABSENTABSENTOSU Genesis HospitalEpithelial cells.squamous LM Ql (Urine sed)0-2/hpf0-2/hpf, 3-5/hpf = 1+[facility] HospitalGlucose Test strip (U) [Mass/Vol]NegativeNegativeOSU Genesis HospitalKetones (U) [Mass/Vol]NegativeNegativeOSU [facility] HospitalLeukocyte esterase Test strip Ql (U)NegativeNegativeOSU [facility] HospitalNitrite Ql (U)NegativeNegativeOSU [facility] HospitalProtein (U) [Mass/Vol]NegativeNegativeOSU [facility] HospitalRBC (U) [#/Vol]Negative NegativeOSU [facility] HospitalRBC LM.HPF (Urine sed) [#/Area]0-2[facility] HospitalWBC LM.HPF (Urine sed) [#/Area]0 - 5[facility] HospitalNo Panel InformationOrdered By: Nora Langford on 35-19-8852ZFO [facility] HospitalNo Panel Informationon 16-55-8884VYA [facility] HospitalOSCooper University HospitalInterpretation and review of laboratory resultsAbnoQueen of the Valley HospitalCystatin C0.79 mg/L0.51 - 1.05 mg/LOSU [facility] HospitalEGFR BY CYS C AND CREATININE, [id number]- [facility] CampusComment on above:Reported eGFR is based on the CKD-EPI 202 equation using cystatin C, creatinine, age, and sex. Interpretation and review of laboratory resultsNoLos Angeles Community Hospital of NorwalkABO/RH(D) TYPEPositiveOSSelect Medical Ohiohealth Rehabilitation Hospital - DublinOSSelect Medical Ohio[facility] Rehabilitation Hospital - DublinOSU Cooper University HospitalThe reference range has not been established for random urine specimens. The test result should be integrated into the clinical context for interpretation.[facility] HospitalOSSelect Medical [facility] Rehabilitation Hospital - DublineGFR, CKD-EPI, Female- [facility] CampusComment on above:Reported eGFR is based on the CKD-EPI 2021 equation using creatinine, age, and sex.Interpretation and review of laboratory resultsNormWestlake Outpatient Medical CenterInterpretation and review of laboratory resultsNoQueen of the Valley HospitalInterpretation and review of laboratory resultsNoQueen of the Valley HospitalInterpretation and review of laboratory resultsNoQueen of the Valley HospitalNo Panel InformationOrdered By: Pawel Ruffin on 09-95-0715Gla reference range has not been established for random urine specimens. The test result should be i ntegrated into the clinical context for interpretation.Kindred HospitalCalcium [Mass/volume] in Serum or PlasmaOrdered By: Wes Chaves on 53-10-6183Owbtffe [Mass/Vol]9.5 mg/dL8.6-10.3FCincinnati VA Medical CenterCarbon dioxide, total [Moles/volume] in Serum or PlasmaOrdered By: Wes Chaves on 45-47-0385TA4 [Moles/Vol]25.9 mmol/L21.0-31.0Ohio[facility] Grant Medical CenterChloride [Moles/volume] in Serum or PlasmaOrdered By: Wes Chaves on 67-53-0133Zfcsmhbr [Moles/Vol]104 mmol/Z45-657NykzztyivOhiohealth Grant Medical CenterCholesterol [Mass/volume] in Serum or PlasmaOrdered By: Wes Chaves on 33-12-0876Rlhukigfmfw [Mass/Vol]181 mg/rJ138-865WdbpivpsgOhiohealth Grant Medical CenterComment on above:Chol less than 200 mg/dl low riskChol 201-239 mg/dl borderline riskChol 240 mg/dl and greater high riskCholesterol in LDL Calc [Mass/Vol]Ordered By: Wes Chaves on 78-83-0612Syjhvxnvwot in LDL [Mass/Vol]107 mg/dL0-100Ohiohealth Grant Medical CenterComment on above:LDL ATP III CLASSIFICATIONLDL less than 100 mg/dL OptimalLDL 100-129 mg/dL Near or above gidmiolGIF217-777 mg/dL Borderline highLDL 160-189 mg/dL HighLDL greater than 189 mg/dL Very highCholesterol in VLDL Calc [Mass/Vol]Ordered By: Wes Chaves on 01-39-0052Oaytxwrioph in VLDL [Mass/Vol]16 mg/dLOhiohealth Grant Medical CenterCreatinine [Mass/volume] in Serum or PlasmaOrdered By: Wes Chaves on 94-96-8384Ddgyaakawk [Mass/Vol]0.82 mg/dL0.60-1.20Ohio[facility] Medical CenterGlucose [Mass/volume] in Serum or PlasmaOrdered By: Wes Chaves on 42-19-0817Ykujael [Mass/Vol]77 mg/fU65-082VnqlewifnOhiohealth Grant Medical Center Comment on above:ADA recommended reference rangeRandom Glucose Reference Range is dependent on time and content of last meal. Glucose of more than 200 mg/dL in a nonstressed, ambulatory subject supports the diagnosisof Diabetes Mellitus.No Panel InformationOrdered By: Wes Chaves on 00-84-4360Nvaxehszt GFR (CKD-EPI)> 60.0 mL/MinOhiohealth Grant Medical CenterPharmacy Creatinine Clearance (Chem N/AFCincinnati VA Medical CenterPotassium [Moles/volume] in Serum or Plasma Ordered By: Wes Chaves on 39-32-4139Skcbddqqf [Moles/Vol]4.4 mmol/L3.5-5.1 Tuscarawas Hospitalerum or plasma anion gap determinationOrdered By: Wes Chaves on 18-27-7795Lirtx gap [Moles/Vol]12.5 mmol/L6.0-15.0Tuscarawas Hospitalerum or plasma high density lipoprotein (HDL) cholesterol measurementOrdered By: Wes Chaves on 29-99-1719Hhhtozkwbdu in HDL [Mass/Vol]58 mg/uS24-03HvuslitbzOhiohealth Grant Medical CenterComment on above:HDL CHOL ATP-III CLASSIFICATION Cardiovascular RiskHDL > or equal to 60 mg/dL LOWHDL < 40 mg/dL HIGHSerum or plasma total cholesterol/high density lipoprotein (HDL) cholesterol mass ratOrdered By: Wes Chaves on 11-22-2022 Cholesterol.total/Cholesterol in HDL [Mass ratio]3.1 {ratio}<5.0Tuscarawas Hospitalodium [Moles/volume] in Serum or PlasmaOrdered By: Wes Chaves on 81-95-2846Pedzgu [Moles/Vol]138 mmol/P113-612MoedarsfjOhiohealth Grant Medical CenterTriglyceride [Mass/volume] in Serum or PlasmaOrdered By: Wes Chaves on 79-71-1171Dkclnxejdkpm [Mass/Vol]82 mg/dL0-149[facility] Comment on above:TRIG ATP III CLASSIFICATIONTRIG less than 150 mg/dL NormalTRIG 150-199 mg/dL Borderline highTRIG 200-500 mg/dL High TRIG greater than 500 mg/dL Very highStandard traceable to the Center for Disease Conrtrol and Prevention (CDC) test method.Urea nitrogen [Mass/volume] in Serum or PlasmaOrdered By: Wes Chaves on 98-47-0242Yxsm nitrogen [Mass/Vol]12 mg/dL7-25Ohio[facility] Medical CenterCOMPLEMENT C1Qon 37-34-0564Cgwqgpzjzo C1q, Xeccrnziynli68.5 mg/dL Amtjph79.3-20.5The [facility] [place] [facility] HospitalComment on above:Performed By: #### COMPC1 #### [facility] [place] [facility] [address] [place] [address] Dr. Rose Marie FoxNicol QUAL W/QUANT REFELXon 25-09-1561Ltywmlfoqvga, Ql, Serum, RflxCommentNormalNone detectedThe Cincinnati Children's Hospital Medical Centerment on above: Result Comment: None Detected at 72 hours This test was developed and its performance characteristics determined by [facility]. It has not been cleared or approved by the Food and Drug Administration.Performed By: #### CRYOGLO ####[facility] [place] [facility] [address] [address]. Rose Marie Robles IMMUNOGLOBULIN E, TOTALon 34-21-7543Vpfmrlokphaznp E, Total9 IU/mLNormal6-495The [facility] on above:Performed By: #### IGETOT #### [facility] [place] [facility] [address] [address] [address] Rose Marie Zurita TOTAL ISO ENZYMESon 21-18-7085VQ-BB0 %Bneujr0Nab [facility] on above:Performed By: #### CK ISO #### [facility] [place] [facility] [address] [address] [address] Rose Marie Zurita-MB0 %Normal0-3The [facility] on above:Performed By: #### CK ISO #### [facility] [place] [facility] [address] [address] [address] Rose Marie Zurita-MM100 %Lghsle05-524Awi [facility] [place] [facility] HospitalCommunson healthcare [facility]istee hospital on above: Performed By: #### CK ISO #### [facility] [place] [facility] [address] [address] [address] Rose Marie RoblesCreatine Kinase,Total,Serum94 U/YXlqppl27-006Jdf [facility] on above:Performed By: #### CK ISO #### [facility] [place] [facility] [address] [address] [address] Rose Marie Causey Type 10 %NormalNot ObservedThe [facility] on above:Performed By: #### CK ISO #### [facility] [place] [facility] [address] [address] [address] Rose Marie Causey Type 20 %NormalNot ObservedThe [facility] [place] [facility] HospitalComment on above:Performed By: #### CK ISO #### [facility] [place] [facility] [address] [address] [address] Rose Marie Matos SUBCLASSES (1-4) AND TOTALon 35-74-0460XiY, Subclass 1700 mg/mYPxykyo029-567Koa [facility] on above:Performed By: #### IGGSB #### [facility] [place] [facility] [address] [address] [address] Rose Marie Matos, Subclass 2436 mg/hRBeyejl618-212Qiq [facility] [place] [facility] HospitalComment on above:Performed By: #### IGGSB #### [facility] [place] [facility] [address] [address] [address] Rose Marie Matos, Subclass 358 mg/hLJmdwjk40-183Ztd [facility] Medical Centerment on above:Performed By: #### IGGSB #### [facility] [place] [facility] [address] [address] [address] Rose Marie Matos, Subclass 429 mg/dLNormal2-96The [facility] [place] [facility] HospitalComment on above:Performed By: #### IGGSB #### [facility] [place] [facility] [address] [address] [address] Rose Marie RoblesImmunoglobulin G, Qn, Awamp4719 mg/mLOwajvp833-7014Blh [facility] [place] [facility] HospitalCommunson healthcare [facility]istee hospital on above:Performed By: #### IGGSB #### [facility] [place] [facility] [address] [address] [address] Rose Marie RoblesALDOLASEon 18-25-8582Dxykabrw5.1 U/LCritically low3.3-10.3The [facility] [place] [facility] HospitalComment on above:Performed By: #### ALDOLAS #### [facility] [place] [facility] [address] [address] [address] Rose Marie RoblesC3 and C4 COMPLEMENTon 26-01-3206Atfameymit C3, Xfapr405 mg/dL Manzxm04-775Nsu [facility] [place] [facility] HospitalCommunson healthcare [facility]istee hospital on above:Performed By: #### CSUITE ####[facility] [place] [facility] [address] [address]Dr. Rose Marie Rosenbergplement C4, Serum15 mg/nXPfjjvq47-99Gtl [facility] [place] [facility] HospitalComment on above:Performed By: #### CSUITE ####[facility] [place] [facility] [address] [address]Dr. Rose Marie RoblesCOMPLEMENT TOTAL (CH50)on 60-70-7241Birvhobufa, Total (CH50)53 U/mLNormal>41The [facility] [place] [facility] HospitalComment on above:Result Comment: Age Male Female [...] of range values.Performed By: #### CH50T #### [facility] [place] [facility] [address] [place] [address] Dr. Rose Marie MedellinPATITIS PANEL, ACUTEon 58-26-1617YTzXp ScreenNegativeNormal NegativeThe [facility] [place] [facility] HospitalComment on above:Performed By: #### HEPACUT #### [facility] [place] [facility] [address] [place] [address] Dr. Rose Marie RoblesHCV AB<0.8Xuesre5.0-0.9The [facility] [place] [facility] HospitalCommunson healthcare manist[facility] hospital on above: Performed By: #### HEPACUT #### [facility] [place] [facility] [address] [place] [address] Dr. Rose Marie Vincent A Ab, IgMNegativeNormalNegativeThe [facility] [place] [facility] HospitalComment on above:Performed By: #### HEPACUT #### [facility] [place] [facility] [address] [place] [address] Dr. Rose Marie Falcon Core Ab, IgMNegativeNormalNegativeThe [facility] [place] [facility] Comment on above:Performed By: #### HEPACUT #### [facility] [place] [facility] [address] [place] [address] Dr. Rose Marie RoblesInterpretation:CommentNormalThAshtabula County Medical CenterComment on above:Result Comment: Negative Not infected with HCV, unless recent infection is suspected or other evidence exists to indicate HCV infection.Performed By: #### HEPACUT #### [facility] [place] [facility] [address] [place], [place] [address] Dr. Rose Marie RoblesIMMUNOGLOBULIN IGA QUANTITIAVEon 07-27-4289Wtogidfhadrach A, Qn, Xqjpk302 mg/rPWjmcai01-551Goy [facility] [place] [facility] HospitalComment on above:Performed By: #### IMIGAQN #### [facility] [place] [facility] [address] [place], [place] [address] Dr. Rose Marie RoblesIMMUNOGLOBULIN IGM QUANTITATIVEon 76-73-3839Uhewawqtgsjtjs M, Qn, Hciwh411 mg/xDUvbwgf10-537Nhi [facility] [place] [facility] HospitalComment on above:Performed By: #### IMIGMQN ####[facility] [place] [facility] [address] [place], [place] [address]ToDr. Rose Marie RoblesCT CHEST WO CONon 34-28-5989RM CHEST WO CONEXAMINATION: CT CHEST WO CON [...] Electronically authenticated by: VALENCIA KEMP Date: 2021-12-26 21:30[facility] Medical CenterURINALYSISon 27-88-3298Aksfnezbtb (U)CLEARNormalCLEAREast Mountain HospitalComment on above:Performed By: #### UA #### [facility] [address] [place], [place] [address]Vfujyazbl Ql (U)NegativeNormalNEGATIVEEast Mountain HospitalComment on above:Performed By: #### UA #### [facility] [address] [place], [place] [address]Jjbuf (U)YELLOWNormalSTRAW,YELLOWEast Mountain Hospital Comment on above:Performed By: #### UA #### [facility] [address] [place], [place] [address]Iorvxxi Ql (U)NegativeNormalNEGATIVEEast Mountain HospitalComment on above:Performed By: #### UA #### [facility] [address] [place], [place] [address]Ezwqjfisal Ql (U)NegativeNormalNEGATIVEEast Mountain HospitalComment on above:Performed By: #### UA #### [facility] [address] [place], [place] [address]Emexofz Ql (U)5 (TRACE)AbnormalNEGATIVEEast Mountain HospitalComment on above:Performed By: #### UA #### [facility] [address] [place], [place] [address]Scbibkhea esterase Test strip Ql (U)NegativeNormalNEGATIVEEast Mountain HospitalComment on above:Performed By: #### UA #### [facility] [address] [place], [place] [address]Sebohnq Ql (U)NegativeNormalNEGATIVEEast Mountain HospitalComment on above:Performed By: #### UA #### [facility] [address] [place], [place] [address]xG (U)6.0 [pH]Normal5.0 - 8.0[facility] Comment on above:Performed By: #### UA #### [facility] [address] [place], [place] [address]Fokprpq Ql (U)NegativeNormalNEGATIVEEast Mountain HospitalComment on above:Performed By: #### UA #### [facility] [address] [place], [place] [address]Krxiocxj gravity (U) [Rel density]1.765Nftcav3.005 - 1.035East Mountain HospitalComment on above:Performed By: #### UA #### [facility] [address] [place], [place] [address]Rtpvsclpplnv (U) [Mass/Vol]mg/dLNormal0.0 - 1.9East Mountain HospitalComment on above:Performed By: #### UA #### [facility] [address] 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 [...] Antonella Ritchie; 07/10/2021 4:32:03 PM Current Meds [facility] (more content not included)...NormalUH TouchworksUrinalysison 07-11-2021 Color (U)YELLOWSee Below-[facility] 150 Work Phone: Comment on above:Reference Range: STRAW,YELLOWGlucose Ql (U)NegativeNEGATIVEMP-[facility]oryUniversity [facility] 150 Work Phone: Ketones Ql (U)5 (TRACE)AbnormalNEGATIVEMP-[facility]Saint [facility] 150 Work Phone: Leukocyte esterase Test strip Ql (U)NegativeNEGATIVE MP-[facility] 150 Work Phone: pH (U)6.0 [pH]5.0 - 8.0MP-[facility] 150 Work Phone: Protein (U) [Mass/Vol]NegativeNEGATIVEMP-[facility] 150 Work Phone: RBC (U) [#/Vol]NegativeNEGATIVE-[facility] 150 Work Phone: Specific gravity (U) [Rel density]1.020 1See Below- [facility] 150 Work Phone: Comment on above:Reference Range: 1.005 - 1.035 UrinalysisNegativeNEGATIVEMP-[facility] 150 Work Phone: Urinalysis<2.00.0 - 1.9MP-[facility] 150 Work Phone: [phone]-UlwhspwrxUnc [facility] 150 Work Phone: CNPNon [phone] (RHEUMN) CHRYSTAL TERAN ([id number]) 1985 F Date Time Provider Department 05/01/21 QUINN LEVIN During your visit today, we recorded the following information about you: Sonya Jaquez Ma 05/01/2021 3:[address] Zhu, The patient is calling for her next treatment steps. Please call her at [phone] (home) Thank you Quinn Garza MD 05/02/2021 [...] Fully Assessed Reason for Visit: Patient Question [0586] Prescriptions as of 05/02/2021 - Biotin 10,000 mcg cap - cholecalciferol (VITAMIN D-3) 5,000 unit tab - Cyanocobalamin 2,000 mcg TbER Take 1 tablet by mouth once daily. - BREO ELLIPTA 200-25 mcg/dose inhaler - ibuprofen (MOTRIN) 600 mg tablet 600 mg. - Lacto no.76/Bifido/FOS/larch (WOMEN'S PROBIOTIC ORAL) - Norethindrone Acet-Ethinyl Est 1-20 mg-mcg per tablet - affza-2o-dpu-epa-fish oil 600-1,200 mg cap - multivitamin (MULTIPLE VITAMIN ORAL) Take 1 tablet by mouth once daily. - TURMERIC ORAL - MULTIVITAMIN TAB Take one(1) tablet daily. Problem List As Of Date 05/01/2021 Noted Resolved Anemia [D64.9] 01/03/2009 Encounter Status:Closed by QUINN LEVIN on 05/02/21NoHighland District HospitalCNPNon [id number] (RHEUMN) CHRYTSAL TERAN ([id number]) 1985 F Date Time Provider Department 04/27/21 FRANDY GARZAQUINN During your visit today, we recorded the [...] Acet-Ethinyl Est 1-20 mg-mcg per tablet - wuzyf-4q-bqx-epa-fish oil 600-1,200 mg cap - multivitamin (MULTIPLE VITAMIN ORAL) Take 1 tablet by mouth once daily. - TURMERIC ORAL - MULTIVITAMIN TAB Take one(1) tablet daily. Problem List As Of Date 04/27/2021 Noted Resolved Anemia [D64.9] 01/03/2009 Encounter Status:Closed by MIREILLE MARX on 04/27/21NoHighland District HospitalCNPNTelephone (RHEUMN) CHRYSTAL TERAN ([id number]) 1985 F Date Time Provider Department 04/27/21 FRANDY GARZAQUINN During your visit today, we recorded the following information about you: Mireille Hopkinsshantell Sung 04/27/2021 8:28 AM Signed Patient has been identified by name and date of : Yes . Patient calling for :results. Patient was calling to discuss her CT results (scanned into [employer]) Pharmacy has been updated: Yes . [facility] Return call needed: Patient is expecting a call back. Can be reached at phone number listed below.. Patient can be reached at : [phone] Allergies As of Date: 04/27/2021 (No Known [...] Acet-Ethinyl Est 1-20 mg-mcg per tablet - hmuag-1u-zjp-epa-fish oil 600-1,200 mg cap - multivitamin (MULTIPLE VITAMIN ORAL) Take 1 tablet by mouth once daily. - TURMERIC ORAL - MULTIVITAMIN TAB Take one(1) tablet daily. Problem List As Of Date 04/27/2021 Noted Resolved Anemia [D64.9] 01/03/2009 Encounter Status:Closed by MIREILLE MARX on 05/24/21[facility] CHEST WO CONon 70-29-7777IF CHEST WO CONCT CHEST WITHOUT CONTRAST CLINICAL: [...] Electronically authenticated by: SHIVANI KENDRICK Date: 2021-04-15 11:[address] [place] [address] SINUSES WO CONon 54-84-3904QO SINUSES WO CONCT SINUS WITHOUT CONTRAST COMPARISON: [...] Electronically authenticated by: ANDRE RED Date: 2021-04-15 15:19[facility] Medical CenterAnti-Neutro.Cyto.Abon 12-54-3557OWVY InterpretationPositive for P-ANCA pattern by confirmatory indirect immunofluorescence and by multiplex flow immunoassay for Myeloperoxidase. Clinical correlation is required.Normal [facility] Hospital DaytonComment on above:Performed By: #### TSH, CBCDIF, WSR, CANBLL, PANBLL, CMP, CRP, ANCA #### [place] [address] V-ANCA FluorescenceNegativeNormalNegativeKindred Hospital Dayton Comment on above:Performed By: #### TSH, CBCDIF, WSR, CANBLL, PANBLL, CMP, CRP, ANCA #### [place] [address] Jcuelyxwovxkudx Ab>8.0High<1.0[facility] Hospital DaytonComment on above:Performed By: #### TSH, CBCDIF, WSR, CANBLL, PANBLL, CMP, CRP, ANCA #### [place] [address] G-ANCA FluorescencePositiveCritically abnormalNegativeCleMercy Health Fairfield HospitalComment on above:Performed By: #### TSH, CBCDIF, WSR, CANBLL, PANBLL, CMP, CRP, ANCA #### [place] [address] Fqgbycwntw-3 Ab<0.2Normal<1.0[facility] on above:Performed By: #### TSH, CBCDIF, WSR, CANBLL, PANBLL, CMP, CRP, ANCA #### [place] [address] Alrae ReviewReviewed by Felix Pradhan, Ph.D, D(ABMLI)Normal [facility] on above:Performed By: #### TSH, CBCDIF, WSR, CANBLL, PANBLL, CMP, CRP, ANCA #### [place] [address] G-Reactive Proteinon 44-29-7144IRM [Mass/Vol]mg/LNormal<0.9CMadison Health on above:Performed By: #### TSH, CBCDIF, WSR, CANBLL, PANBLL, CMP, CRP, ANCA #### [place] [address] ALKNV Reflexon 33-24-9964ECKCI ReflexBilled for services performed NormalBarnesville Hospital on above:Performed By: #### TSH, CBCDIF, WSR, CANBLL, PANBLL, CMP, CRP, ANCA #### [place] [address] TMP and Differentialon 89-08-1693Eac Baso0.05 k/uLNormal<0.11 [facility] on above:Performed By: #### TSH, CBCDIF, WSR, CANBLL, PANBLL, CMP, CRP, ANCA #### [place] [address] Gtw Eosin<0.03Normal<0.46[facility] on above: Performed By: #### TSH, CBCDIF, WSR, CANBLL, PANBLL, CMP, CRP, ANCA #### [place] [address] Tlq Mono0.44 k/uLNormal<0.87[facility] on above:Performed By: #### TSH, CBCDIF, WSR, CANBLL, PANBLL, CMP, CRP, ANCA #### [place] [address] Crw Neut4.28 k/uLNormal1.45-7.50[facility] on above:Performed By: #### TSH, CBCDIF, WSR, CANBLL, PANBLL, CMP, CRP, ANCA #### [place] [address] Enlplzzf nRBC<0.01Normal<0.01[facility] on above:Performed By: #### TSH, CBCDIF, WSR, CANBLL, PANBLL, CMP, CRP, ANCA #### [place] [address] Paujqqxdt/100 WBC (Bld)0.8 %NormalBarnesville Hospital on above:Performed By: #### TSH, CBCDIF, WSR, CANBLL, PANBLL, CMP, CRP, ANCA #### [place] [address] BCGNGCstr DiffNormalCMadison Health on above: Performed By: #### TSH, CBCDIF, WSR, CANBLL, PANBLL, CMP, CRP, ANCA #### [place] [address] Fneejmdzvfd/100 WBC (Bld)0.2 %NormalKindred Hospital Dayton Comment on above:Performed By: #### TSH, CBCDIF, WSR, CANBLL, PANBLL, CMP, CRP, ANCA #### [place] [address] Arrdooafboy distribution width (RBC) [Ratio]12.8 %Webyio57.5-15.0 [facility] on above:Performed By: #### TSH, CBCDIF, WSR, CANBLL, PANBLL, CMP, CRP, ANCA #### [place] [address] Awbejicopw (Bld) [Volume fraction]45.3 %Imoztg77.0-46.0[facility] on above:Performed By: #### TSH, CBCDIF, WSR, CANBLL, PANBLL, CMP, CRP, ANCA #### [place] [id number] Qfyylpverf (Bld) [Mass/Vol]13.8 g/jJXwfusp71.5-15.5CCoshocton Regional Medical Centerment on above:Performed By: #### TSH, CBCDIF, WSR, CANBLL, PANBLL, CMP, CRP, ANCA #### [place] [address] Mkvgykqlpfb (Bld) [#/Vol]1.84 10*3/uLNormal1.00-4.00[facility] on above:Performed By: #### TSH, CBCDIF, WSR, CANBLL, PANBLL, CMP, CRP, ANCA #### [place] [address] Afwqaaqdjtr/100 WBC (Bld)27.7 %NormalKindred Hospital Dayton Comment on above:Performed By: #### TSH, CBCDIF, WSR, CANBLL, PANBLL, CMP, CRP, ANCA #### [place] [address] LPS76.9 qPXpiyub21.0-34.0[facility] on above: Performed By: #### TSH, CBCDIF, WSR, CANBLL, PANBLL, CMP, CRP, ANCA #### [place] [address] ZSCY (RBC) [Mass/Vol]30.5 g/kEUzgvhs73.5-36.0[facility] on above:Performed By: #### TSH, CBCDIF, WSR, CANBLL, PANBLL, CMP, CRP, ANCA #### [place] [address] [place] [address] PTP (RBC) [Entitic vol]91.5 hUOskxrl95.0-100.0[facility] on above:Performed By: #### TSH, CBCDIF, WSR, CANBLL, PANBLL, CMP, CRP, ANCA #### [place] [address] Mdrhnalqq/100 WBC (Bld)6.6 %NormalBarnesville Hospital on above:Performed By: #### TSH, CBCDIF, WSR, CANBLL, PANBLL, CMP, CRP, ANCA #### [place] [address] Oqhqzqypiyj/100 WBC (Bld)64.7 %NormalKindred Hospital Dayton Comment on above:Performed By: #### TSH, CBCDIF, WSR, CANBLL, PANBLL, CMP, CRP, ANCA #### [place] [address] MWLHk7.0 /100 SAGXkhjuz8UjhqmgbevBarnesville Hospital on above: Performed By: #### TSH, CBCDIF, WSR, CANBLL, PANBLL, CMP, CRP, ANCA #### [place] [address] Rbgjldjw mean volume (Bld) [Entitic vol]9.6 fLNormal9.0-12.7 [facility] on above:Performed By: #### TSH, CBCDIF, WSR, CANBLL, PANBLL, CMP, CRP, ANCA #### [place] [address] Qtmeddtrn (Bld) [#/Vol]426 10*3/bCFpzm225-621VnqavizthBarnesville Hospital on above:Performed By: #### TSH, CBCDIF, WSR, CANBLL, PANBLL, CMP, CRP, ANCA #### [facility] [address] [place] [address] LWA (Bld) [#/Vol]4.95 10*6/uLNormal3.90-5.20[facility] on above:Performed By: #### TSH, CBCDIF, WSR, CANBLL, PANBLL, CMP, CRP, ANCA #### [facility] [address] [place] [address] AIP (Bld) [#/Vol]6.64 10*3/uLNormal3.70-11.00[facility] on above:Performed By: #### TSH, CBCDIF, WSR, CANBLL, PANBLL, CMP, CRP, ANCA #### [facility] [place] [address] ZOPRao 59-26-8697BCTKFscveu Visit (RHEUMN) CHRYSTAL TERAN ([id number]) 1985 F Date Time Provider Department 04/07/21 8:00 AM QUINN LEVIN During your visit today, we recorded the following information about you: Temperature Pulse Blood pressure Weight 99 degrees 89/minute 116/69 61.7 kg Height 1.575 m Quinn Garza MD 04/11/2021 2:42 PM Signed Chrystal Teran is a 35 year old female. Consultation was requested by Dr. 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 Jan 2021: first visit with fish inspector; she had PFTs: mildly abnormal suggestive of [...] vomiting, diarrhea URINARY: negative for, dysuria, hematuria TESTICULAR/SEXUAL HEALTH PHYSICIAN: negative for, pain, swelling, genital lesions or [...] Acet-Ethinyl Est 1-20 mg-mcg per tablet - swexy-1d-vuj-epa-fish oil 600-1,200 mg cap - multivitamin (MUL (more content not included)...NormalMer[facility] Health [facility] Metabolic Panelon 64-78-3168Uwuuvmc [Mass/Vol]4.3 g/dLNormal 3.9-4.9CMadison Health on above:Performed By: #### TSH, CBCDIF, WSR, CANBLL, PANBLL, CMP, CRP, ANCA #### [facility] [address] [place], [place] [address] ALP [Catalytic activity/Vol]58 U/MHejuga69-605KeksdxllwBarnesville Hospital on above:Performed By: #### TSH, CBCDIF, WSR, CANBLL, PANBLL, CMP, CRP, ANCA #### [place] [address] EGS [Catalytic activity/Vol]21 U/LNormal7-38[facility] on above:Performed By: #### TSH, CBCDIF, WSR, CANBLL, PANBLL, CMP, CRP, ANCA #### [place] [address] Kqkar gap [Moles/Vol]11 mmol/LNormal9-18[facility] Comment on above:Performed By: #### TSH, CBCDIF, WSR, CANBLL, PANBLL, CMP, CRP, ANCA #### [place] [address] YLM [Catalytic activity/Vol]27 U/JOpiiom66-07McxrpuqlfBarnesville Hospital on above:Performed By: #### TSH, CBCDIF, WSR, CANBLL, PANBLL, CMP, CRP, ANCA #### [place] [address] Uwvihcyib [Mass/Vol]0.2 mg/dLNormal0.2-1.3CMercy Health St[facility] Comment on above:Performed By: #### TSH, CBCDIF, WSR, CANBLL, PANBLL, CMP, CRP, ANCA #### [place] [address] Bsmolfb [Mass/Vol]9.3 mg/dLNormal8.5-10.2CMercy Health St. [facility] Comment on above:Performed By: #### TSH, CBCDIF, WSR, CANBLL, PANBLL, CMP, CRP, ANCA #### [address] [address] Ijyekoyv [Moles/Vol]106 mmol/THoso31-059XzdlabcotKindred Hospital Dayton Comment on above:Performed By: #### TSH, CBCDIF, WSR, CANBLL, PANBLL, CMP, CRP, ANCA #### [place] [address] [place] [address] IW2 [Moles/Vol]24 mmol/TTpsivs63-60UzcfamiwlKindred Hospital DaytonComment on above:Performed By: #### TSH, CBCDIF, WSR, CANBLL, PANBLL, CMP, CRP, ANCA #### [place] [address] Vkkppdexfj [Mass/Vol]0.75 mg/dLNormal0.58-0.96[facility] DaytonComment on above:Performed By: #### TSH, CBCDIF, WSR, CANBLL, PANBLL, CMP, CRP, ANCA #### [place] [address] dOXG- Amer.>60NormalCleveland Unc Hospitals Hillsborough CampusCommunson healthcare manistee hospital on above:Performed By: #### TSH, CBCDIF, WSR, CANBLL, PANBLL, CMP, CRP, ANCA #### [place] [id number] sMUD-All Other Races>60NormalClevelWashington Regional Medical CenterCommunson healthcare manistee hospital on above:Result Comment: eGFR (Estimated GFR) Units [...] WSR, CANBLL, PANBLL, CMP, CRP, ANCA #### [facility] [address] [place] [id number] [phone] [Mass/Vol]96 mg/hHSghpjj64-82ZiltcvnvkKindred Hospital Dayton Comment on above:Result Comment: The [place] Diabetes Association (ADA) provides guidance for cutoff [...] Standards of Medical Care in Diabetes 2016, [place] Diabetes Association. Diabetes Care. 2016.39(Suppl 1).Performed By: #### TSH, CBCDIF, WSR, CANBLL, PANBLL, CMP, CRP, ANCA #### [facility] [address] [place] [address] Rfqkgugnb [Moles/Vol]4.1 mmol/LNormal3.7-5.1CMercy Health St. Vincent Medical CenterComment on above:Performed By: #### TSH, CBCDIF, WSR, CANBLL, PANBLL, CMP, CRP, ANCA #### [facility] [address] [place], [place] [address] [phone] [Mass/Vol]7.1 g/dLNormal6.3-8.0[facility] Comment on above:Performed By: #### TSH, CBCDIF, WSR, CANBLL, PANBLL, CMP, CRP, ANCA #### [place] [address] [place] [address] Eyauxe [Moles/Vol]141 mmol/ALqvlyr774-984AetxcspfeKindred Hospital Dayton Comment on above:Performed By: #### TSH, CBCDIF, WSR, CANBLL, PANBLL, CMP, CRP, ANCA #### [place] [address] Yzit nitrogen [Mass/Vol]11 mg/dLNormal7-21[facility] Comment on above:Performed By: #### TSH, CBCDIF, WSR, CANBLL, PANBLL, CMP, CRP, ANCA #### [place] [address] PJYAI Reflexon 05-50-3274BYIVJ ReflexBilled for services performed NormalKindred Hospital DaytonComment on above:Performed By: #### TSH, CBCDIF, WSR, CANBLL, PANBLL, CMP, CRP, ANCA #### [place] [address] Vxv Rate Westergrenon 25-28-4536Hck Rate Westergren2 mm/hrNormal0-20 [facility] on above:Performed By: #### TSH, CBCDIF, WSR, CANBLL, PANBLL, CMP, CRP, ANCA #### [place] [address] XGCet 64-45-5711WWQ Qn1.770 m[IU]/LNormal0.270-4.200[facility] on above:Result Comment: If the patient is , TSH reference range varies by gestational period: First Trimester (weeks 9-12): 0.180-2.990 mcIU/mL Second Trimester: 0.110-3.980 mcIU/mL Third Trimester: 0.480-4.710 mcIU/mL Garcia Stuart et al. A Practical Approach for the Verifications and Determination of Site- and Trimester-Specific Reference Intervals for Thyroid Function tests in . Thyroid, 2019:29:3:412-420.Juan E, et al. 2017 Guidelines of the [place] Thyroid Association for the Diagnosis and Management of Thyroid Disease during and the . Thyroid, 2017:27:3:315-389. Performed By: #### TSH, CBCDIF, WSR, CANBLL, PANBLL, CMP, CRP, ANCA #### [facility] [address] [place], [place] [address] ITAIeq 14-24-1210TJWBHvpogylgl (RHEUMN) CHRYSTAL TERAN ([id number]) 1985 F Date Time Provider Department 04/04/21 QUINN LEVIN During your visit today, we recorded the following information about you: Mireille Sung 04/04/2021 12:18 PM Signed Records received from Dr. Hewitt at [facility] for upcoming appt w/ Dr. Frandy Garza [...] 01/03/2009 Encounter Status:Closed by MIREILLE MARX on 04/04/21NoHighland District HospitalCNPNon [id number] (ORQ) CHRYSTAL TERAN ([id number]) 1985 F Date Time Provider Department 02/22/21 [...] OTHER PROVIDER PLEASE CALL TO SCHEDULE Radha Estrellita 02/28/2021 12:25 PM Signed Patient is scheduled as requested below. Allergies As of Date: 02/22/2021 (No Known Allergies) Date Reviewed: 07/07/2009 Reviewed by: Rosa Isela Mitchell Ma - Reviewed Reason for Visit: Appointment [186] Prescriptions as of 03/01/2021 - MULTIVITAMIN TAB Take one(1) tablet daily. Problem List As Of Date 02/22/2021 Noted Resolved Anemia [D64.9] 01/03/2009 Encounter Status:Closed by FARTUN HENNING on 03/01/21NoHighland District Hospital Vital Signs Date TimeVital SignValuePerforming ZwhhhwvoiYsnqtupp07-75-6428 10:03040Body vdigvw556.5 cmSandra Marr DO Work Phone: [employer]Lqgnafdrcs65-05-1968 10:03-0400Body mass index (BMI) [Ratio]25.68 kg/s3Hbtmecsandy Christopher-Dorian DO Work Phone: noChina PharmaHubLiiuxghssd35-97-9390 10:03-0400Body uitvww13.69 kgSasandy Marr DO Work Phone: [employer]Zbiancxzge79-69-9378 10:03-0400Diastolic blood auaudzqb56 mm[Hg]Fatou Christopher-[place]ville DO Work Phone: [facility]woodNcjisprhey89-90-9611 10:03-0400Heart rate81 /min Fatou Christopher-[place] DO Work Phone: [facility] KirkwoodQykuutiwrt65-46-7156 10:03-6009KdB4% (BldA) [Mass fraction]98 %Fatou Christopher-[place] DO Work Phone: [facility] KirkwoodFckpnringw01-19-5081 10:03-0400Systolic blood yaxtaehr823 mm[Hg]Fatou Christopher-[place]ville DO Work Phone: [facility] KirkwoodCkoelsofaq84-37-9717 15:35-0500Body mass index (BMI) [Ratio]25.2 kg/m1Kvmzjo Christopher-[place] DO Work Phone: [facility] KirkwoodYkamyisxul95-43-1605 15:35-0500Body rslphy84.51 kgSaanalisara Christopher-[place] DO Work Phone: [facility] KirkwoodJxtxrlgyic89-84-3376 15:35-0500Diastolic blood irmylysn41 mm[Hg]Fatou Christopher-[place] DO Work Phone: [facility] KirkwoodUsodvbmlmh86-71-6478 15:35-0500Heart rate77 /min Fatou Christopher-[place] DO Work Phone: [facility] KirkwoodFblocoqslg27-75-2630 15:35-8076XtO7% (BldA) [Mass fraction]98 %Fatou Christopher-[place] DO Work Phone: [place] [address]Fxadosvpnk06-25-6947 15:35-0500Systolic blood psfqkobr900 mm[Hg]Fatou Christopher-[place]ville DO Work Phone: [place] [address]Vkjgrnnhlj23-13-5495 15:48-0400Body mass index (BMI) [Ratio]24.87 kg/p0Dbklrfho Rinkes DO Work Phone: noCedar County Memorial HospitalXgoeikkfau70-21-8400 15:48-0400Body kqergt44.69 kgKathleen Rinkes DO Work Phone: [facility] KirkwoodQdhztqapze87-10-9823 15:48-0400Diastolic blood senxcego97 mm[Hg]May Thomas DO Work Phone: [facility] KirkwoodLctqwldlph47-26-3723 15:48-0400Systolic blood irivptmu816 mm[Hg]May Thomas DO Work Phone: [facility] KirkwoodSbbcuigzjk04-06-2296 09:48-0400Body mass index (BMI) [Ratio]23.65 kg/m2Tayla Mazariegos MD, PhD Work Phone: 1(894)[address] [place], [place] 2641907-10-2024 09:48-0400Body oxevmwxnyhd79.6 [degF]Tayla Mzaariegos MD, PhD Work Phone: 1(634)[address] [place], [place] 2641907-10-2024 09:48-0400Body vxsolu86.65 kgTayla Mazariegos MD, PhD Work Phone: 1(657)[address] [place], [place] 2641907-10-2024 09:48-0400 Diastolic blood mm[Hg]Tayla Mazariegos MD, PhD Work Phone: 1(902)[address] [place], [place] 2641907-10-2024 09:48-0400Heart cpat188 /minTayla Mazariegos MD, PhD Work Phone: 1(252)[address] [place], [place] 2641907-10-2024 09:48-0400Systolic blood nambsdco629 mm[Hg]Tayla Mazariegos MD, PhD Work Phone: 1(261)[address] [place], [place] 2641906-16-2024 10:46-0400Body .81 [degF]Bebeto MCFADDEN Work Phone: 1(066)[address] [place], [place] 2641906-16-2024 10:46-0400 Diastolic blood qjhibzym45 mm[Hg]Bebeto MCFADDEN Work Phone: 1(540)[address] [place], [place] 2641906-16-2024 10:46-0400Heart rate76 /minBebeto MCFADDEN Work Phone: 1(640)[address] [place], [place] 2641906-16-2024 10:46-0400 Respiratory rate12 /minBebeto MCFADDEN Work Phone: 1(477)[address] [place], [place] 2641906-16-2024 10:46-1454SzA8% (BldA) [Mass fraction]97 %Bebeto MCFADDEN Work Phone: 1(978)[address] [place], [place] 2641906-16-2024 10:46-0400Systolic blood nbeibpgf904 mm[Hg]Bebeto MCFADDEN Work Phone: 1(296)[address] [place], [place] 2641906-14-2024 07:42-0400Body orcjks971.5 cmNaeamon MCFADDEN Work Phone: 1(702)[address] [place], [place] 2641906-14-2024 07:42-0400Body mass index (BMI) [Ratio]23.59 kg/v7GpzhxbfBebeto MCFADDEN Work Phone: 1(127)[address] [place], [place] 2641906-14-2024 07:42-0400Body xwjazv99.51 kgNaeamon MCFADDEN Work Phone: 1(665)[address] [place], [place] 2641906-03-2024 09:00-0400 Diastolic blood hgnnpkca78 mm[Hg][facility] Pre Op Donor [facility]06-03-2024 09:00-0400Systolic blood zuwzixbn174 mm[Hg][facility] Pre Op Donor [facility]06-03-2024 08:56-0400Body mass index (BMI) [Ratio]23.92 kg/h0Amyyfr Pre Op Donor [facility]06-03-2024 08:56-0400Body zogwtbyyvty19.49 [degF][facility] Pre Op Donor [facility]06-03-2024 08:56-0400Body piwidt14.33 kgRobert [facility]. [facility]06-03-2024 08:56-0400Heart ddjc929 /minRobert F. [facility]04-15-2024 17:10-0400Diastolic blood asoohwby57 mm[Hg]Tayla Mazariegos MD, PhD Work Phone: 1(146)[address] [place], [place] 2641904-15-2024 17:10-0400Systolic blood cprjketa814 mm[Hg]Tayla Mazariegos MD, PhD Work Phone: 1(323)[address] [place], [place] 2641904-01-2024 08:28-0400 Diastolic blood isqxtksw43 mm[Hg]Mir Bagley MD Work Phone: 1(327)[address] [place], [place] 2641904-01-2024 08:28-0400Heart rate95 /minToevens Bagley MD Work Phone: 1(330)[address] [place], [place] 2641904-01-2024 08:28-0400Systolic blood ravpcuqq997 mm[Hg]Mir Bagley MD Work Phone: 1(897)[address] [place], [place] 2641904-01-2024 08:27-0400Body lbayoa984.5 cmTyonatan Bagley MD Work Phone: 1(685)[address] [place], [place] 2641904-01-2024 08:27-0400Body mass index (BMI) [Ratio]24.66 kg/m2Mir Bagley MD Work Phone: 1(871)[address] [place], [place] 2641904-01-2024 08:27-0400Body cdzeoqsotyb63.2 [degF]Mir Bagley MD Work Phone: 1(996)[address] [place], [place] 2641904-01-2024 08:27-0400Body nudkbr89.15 kgToevens Bagley MD Work Phone: 1(906)[address] [place], [place] 2641904-01-2024 07:28-0400 Diastolic blood mm[Hg]Tayla Mazariegos MD, PhD Work Phone: 1(884)[address] [place], [place] 2641904-01-2024 07:28-0400Heart mtfc694 /minTayla Mazariegos MD, PhD Work Phone: 1(209)[address] [place] [address] Lyoyyn76-11-4984 07:28-0400Systolic blood ongskafo693 mm[Hg]Tayla Mazariegos MD, PhD Work Phone: 1(241)[address] [place], [place] 2641904-01-2024 07:25-0400Body vrqocy940.5 Jordin Mazariegos MD, PhD Work Phone: 1(340)[address] [place], [place] 2641904-01-2024 07:25-0400Body mass index (BMI) [Ratio]24.66 kg/m2Tayla Mazariegos MD, PhD Work Phone: 1(596)[address] [place], [place] 2641904-01-2024 07:25-0400Body cnzxwfbyitf46.2 [degF]Tayla Mazariegos MD, PhD Work Phone: 1(822)[address] [place], [place] 2641904-01-2024 07:25-0400Body ellkmh51.15 kgTayla Mazariegos MD, PhD Work Phone: 1(700)[address] [place], [place] 2641905-03-2022 16:08-0400 Diastolic blood zndotlzs21 mm[Hg]Tonia Terrie Morin Work Phone: [phone]-Eqafuw Internal [facility] Work Phone: 1(953) 444-431305-03-2022 16:08-0400Systolic blood mm[Hg] Tonia Terrie AbramsMorin Work Phone: [phone]-Wiqikq Internal [facility] Work Phone: 1(504) 943-426805-03-2022 15:57-0400Body dwvzxa637.48 cmRoxanne B Morin Work Phone: mp035-0961ZH-Pwnvmh [facility] Work Phone: 1(629) 123-708505-03-2022 15:57-0400Body mass index (BMI) [Ratio] 24.51 kg/r4Uyubssp B Morin Work Phone: mp270-2583MP-Lvlavu [facility] Work Phone: 1(734) 231-784305-03-2022 15:57-0400Body surface area Derived from formula1.61 r1VxdolqsTonia Morin Work Phone: mp534-3784MA-DgqvewB[facility] Work Phone: 1(997) 511-163805-03-2022 15:57-0400Body xltxew08.78 kgRoxanum Morin Work Phone: mp856-5087GB-DvtotxBaptist Health [facility] Work Phone: 1(590) 817-370912-21-2021 16:00-0500Body woepks328.48 cmRoxanfroy Morin Other [employer] Other 12-21-2021 16:00-0500Body mass index (BMI) [Ratio] 24.43 kg/i6CnoiouyTonia Morin Other [employer] Other 12-21-2021 16:00-0500Body abenweaezry65.8 [degF] Tonia Morin Other [employer] Other 12-21-2021 16:00-0500Body zalzpp45.6 kgTonia Morin Other [employer] Other 12-21-2021 16:00-0500Diastolic blood mm[Hg] Tonai Morin Other [employer] Other 12-21-2021 16:00-0500Respiratory rate18 /minTonia Morin Other [employer] Other 12-21-2021 16:00-9510XaJ1% (BldA) [Mass fraction]98 % Tonia Morin Other [employer] Other 12-21-2021 16:00-0500Systolic blood mm[Hg] Tonia Mikel Other [employer] Other Encounters Encounter DateEncounter TypeCare ProviderFacilityStart: 01-06-2025 End: 38-68-7114Bxdywhiso Result EncounterSand Nakul Christopher-[place] DO Work Phone: noms External Department UnsolicitedStart: 01-06-2025 End: 72-96-9866Jzabxjitj Result EncounterSandra Mota Christopher-[place] DO Work Phone: noms External Department UnsolicitedStart: 01-05-2025 End: 43-68-4415Xmefny outpatient visit 25 minutesSandra Mota Christopher-[place] DO Work Phone: NOP[facility] Internal MedicineComment on above:New onset headache (Primary Dx); Positive P-ANCA titer; Elevated platelet count; Episodic paroxysmal hemicrania, not intractable; Kidney donorStart: 01-05-2025 End: 86-60-2802cbzwepesfwJENSGC D CHRISTOPHER-EMERYNot AvailableStart: 11-20-2024 End: 67-89-7994Lkflffzn ReferredBryflakito Bowser DO-[facility] [address] Work Phone: start: 11-20-2024 End: 12-85-2820xxgsyfnzhxPqcwqjg B Mkiel DO Work Phone: [facility] Work Phone: Start: 07-09-2024 End: 38-78-8079Xivuao flowsRadha Fowler DPM Work Phone: noms [facility] PODIATRYStart: 07-09-2024 End: 47-45-2172Yqacbh Jeffrey Fowler DPM Work Phone: noms [facility] PODIATRYStart: 07-09-2024 End: 58-13-2818Jcocnz follow up visit related to original Alice Fowler DPM Work Phone: noms [facility] PODIATRYComment on above:Mechanical complication associated with orthopedic device, initial encounter (Primary Dx); Left foot pain; Surgery follow-up examinationStart: 07-09-2024 End: 75-15-7202cgitgxucllGIDJVRJND H SMITHNot AvailableStart: 07-02-2024 End: 20-80-4751Uwwcpi flowsBekahneo Fowler DPM Work Phone: noms [facility] PODIATRYStart: 07-02-2024 End: 37-80-7436Dwjquc flowsheetAfshanneo Fowler DPM Work Phone: noms [facility] PODIATRYStart: 07-02-2024 End: 39-43-8968Ejeavjw encounter procedureCasharneo Fowler DPM Work Phone: noms [facility] PODIATRYComment on above:Mechanical complication associated with orthopedic device, initial encounter (Primary Dx); Left foot painStart: 07-02-2024 End: 62-78-0205rcfhmmpsgyMHSLKXJZU H SMITHNot AvailableStart: 06-02-2024 End: 97-68-3787Msopwk outpatient new 30 minutesCasharneo Fowler DPM Work Phone: noms [facility] PODIATRYComment on above:Mechanical complication associated with orthopedic device, initial encounter ([facility]) (Primary Dx); Left foot painStart: 06-02-2024 End: 13-19-7512dslvcpbavxFEIZJQUVF H SMITHNot AvailableStart: 02-25-2024 End: 70-38-3545Lmphumn encounter statusSasandy Marr DO Work Phone: [facility] Work Phone: Start: 02-25-2024 End: 80-84-5494Jyslummv preventive med est patient 18-39 yrsSasandy Alarcon DO Work Phone: noms [facility] IMComment on above:Encounter for preventative adult health care examination (Primary Dx); Influenza vaccination declined; Kidney donorStart: 02-25-2024 End: 99-97-3016khppkekjxxIZWOSI D WEAVER-EMERYNot AvailableStart: 01-09-2024 End: 24-24-9758Vykhbwg encounter statusMay Thomas DO Work Phone: noIN HealthcareStart: 01-09-2024 End: 58-75-6013Zeyjjcfb preventive med est patient 18-39 yrsKathleen E William DO Work Phone: noms [facility] OBComment on above:Encounter for gynecological examination without abnormal finding; Screening for malignant neoplasm of cervix; Encounter for surveillance of contraceptive pillsStart: 01-09-2024 End: 60-42-7827tykjaztqweZJTWYALW E RINKESNot AvailableStart: 09-18-2023 End: 70-43-3847Ixhcjn follow up visit related to original Nino Mazariegos MD, PhD Work Phone: [facility] CenterComment on above:Donor, kidney (Primary Dx)Start: 04-21-6812zqrwdyrmwx SELF SELFFacility:[facility] CENTERtart: 08-23-2023 End: 88-86-5773Puetlfxhma and management of inpatientNavdtheresa MCFADDEN Work Phone: [phone] on above:Kidney donorStart: 08-12-2023 ambulatorySASANDY MARRFacility:[facility] CENTERtart: 08-12-2023 End: 42-72-8798Pgzqvgzvwg hospital visit by Guerrero Mazariegos MD, PhD Work Phone: Imaging DoanComment on above:ArrivedStart: 08-12-2023 End: 85-51-8734Clnxvghq Support [facility]counterOs[facility] Donor ClinicComclovis [facility] HospitalComment on above:Kidney donor (Primary Dx)Start: 65-41-7644qhwdqylhujWPMDNJ WEAVER-EMERYFacility:[facility]ENTERtart: 06-24-2023 End: 03-35-7598Yvuwqlvmxl hospital visit by Guerrero Mazariegos MD, PhD Work Phone: Imaging [facility] Outpatient CareComment on above:ArrivedStart: 06-10-2023 End: 58-26-7829Jnkjfn outpatient new 60 minutesToevens Bagley MD Work Phone: [facility]Bar[facility] RoadComment on above:Kidney living donor evaluation, pre-op (Primary Dx); Kidney donorStart: 06-10-2023 End: 28-34-7726Ftjgwgs encounter statusMir Bagley MD Work Phone: [facility] Work Phone: Start: 06-10-2023 End: 46-45-4738Ahxcynt encounter Bela Mazariegos MD, PhD Work Phone: [facility]plant [facility]–Bar[facility] RoadComment on above:Kidney donor (Primary Dx)Start: 06-10-2023 End: 50-39-1676Rjnwvuadkn hospital visit by Guerrero Mazariegos MD, PhD Work Phone: Imaging DoanComment on above:ArrivedStart: 11-22-2022 End: 97-17-9641zjkahtxcypTW Tonia Morin Work Phone: [facility] Work Phone: Start: 11-22-2022 End: 00-27-8241Iuoaxocx ReferredDO Tonia Morin Work Phone: [facility] Work Phone: start: 04-16-2022 End: 48-52-2812opukodpdqhGlytegj Rogers Other [facility] [employer] Other Start: 28-19-1933Rarpvvzvj encounterTonia Winchester Ramone Primary CareStart: 02-24-2022 End: 63-55-7165sshuvwadcmBLINGQ SAMSAFacility:J1Kfgmj: 01-30-2022 End: 02-67-0206aczzkrvestNIFIYA HARBOR-[facility]CLA MEDICAL CENTERSAFacility:H1Aknot: 12-26-2021 End: 75-28-5722eaemtixwyxNCEODS SAMSAFacility:N8Icsiq: 05-98-7461Tzdfl Update Toniaanum Morin Work Phone: [phone]-Rglgenivl [facility] Work Phone: Start: 24-13-8926Tlemalr encounter procedureTonia Morin Work Phone: [phone]-Vvkkep Internal Medicine-[facility] Work Phone: Start: 33-24-5247Kyncogjly for general adult medical examination without abnormal findingsAultman Alliance Community Hospitaltart: 04-15-2021 End: 75-17-4145grqcgqnklhOWIDCF SAMSAFacility:A2Volar: 04-15-2021 End: 43-30-1302Pypldaach for general adult medical examination without abnormal findingsNATANOOP HARBOR-UCLA MEDICAL CENTERFacility:D5Pfudk: 02-28-2021 End: 52-05-3693sfogkestsdAomrevr Rogers Other [place] [employer] Other Start: 54-69-4075Benbnbrwo for general adult medical examination without abnormal findingsTonia Pack Primary CareStart: 94-16-3291Bfjubksw preventive med est patient 18-39 yrsRoxanum Pack Primary CareStart: 54-22-0277Dcumupw encounter procedureMILITTLEHENNY DENNEYNicol Facility:[id number] Procedures DateProcedureProcedure DetailPerforming ClinicianStart: 94-00-4083BRZS CBC WITH PLATELET NO DIFFERENTIALSasandy Marr DO Work Phone: Start: 99-46-2247Wcwprrnwss examination foot 2 views Jaelyn KOHLERM Work Phone: start: 19-65-9846MBY AND ELECTRONIC DIFFTayla Mazariegos MD, PhD Work Phone: Start: 08-94-2731Oasavaml blood count with white cell differential, automatedTayla Mazariegos MD, PhD Work Phone: Start: 81-50-0109Gnyjgizxpl bloodTayla Mazariegos MD, PhD Work Phone: Start: 73-03-8491Icwfb dip stick/tablet reagent auto microscopyTayla Mazariegos MD, PhD Work Phone: Start: 52-22-2473Mzrrgoqfic bloodBebeto MCFADDEN Work Phone: Start: 04-34-3654Gzsjg count hematocritSteven Llanos MD Work Phone: Start: 54-71-4795ETAJLCM AURIS SCREEN BY Ruby Cantu FLOORING SALES MANAGER-PERSONNEL MANAGER Work Phone: Start: 12-42-2304NW Unspecified body regionPamelyaneli Barragan MD Work Phone: Start: 94-33-8671VQUMMJU RHYTHMOther OtherStart: 86-99-7117QWT-[place] LIVING DONOR ACD SAMPLE (TISSUE TYPING)Anum Marsh PA-C Work Phone: Start: 29-16-0277MFU-[place] LIVING DONOR SERUM SAMPLEAnum ISABEL-C Work Phone: Start: 37-40-8139Ynhaeewjirpl chorionic qualitative Bebeto MCFADDEN Work Phone: Start: 87-78-4800Modmnyaryy exam chest 2 Prince Mazariegos MD, PhD Work Phone: Start: 13-09-6414Jkgpfhhs Parker MARR Comment on above:Performed By: #### XMPO #### [facility] ([facility]) [address] [place] [id number]: 56-91-9714Aeaawnro do-bahena eb virus viral capsid vcParish Mazariegos MD, PhD Work Phone: Start: 39-07-7451Fashp of magnesiumTayla Mazariegos MD, PhD Work Phone: Start: 42-47-6226Lyfxf dip stick/tablet reagent auto microscopyAmer Kandi GARNER, PhD Work Phone: Start: 58-46-4160Nzu abdomen w/o & w/contrast material Tayla Mazariegos MD, PhD Work Phone: Start: 53-36-0042Msylouguwb exam chest 2 viewsToevens Bagley MD Work Phone: Start: 92-35-6144RCU AND ELECTRONIC DIFFToevens Bagley MD Work Phone: Start: 74-11-8568Pmknyulv blood count with white cell differential, automatedMir Bagley MD Work Phone: Start: 27-70-0926Ayshvfbwzjsip metabolic panelMir Bagley MD Work Phone: Start: 23-75-9643Jkf class i&ii low hla-a -b -c -drb1/3/4/5&dqbAmer Kandi GARNER, PhD Work Phone: Start: 89-84-3315Jflxqmsfxfn tumor antigen quantitative ca 125Amer Kandi GARNER, PhD Work Phone: Start: 75-24-4347NZP LIVING DONORToevens Bagley MD Work Phone: Start: 34-04-1804Owmwx dip stick/tablet reagent auto microscopyToevens Bagley MD Work Phone: Start: 11-46-1666Onvwnzwoyud observation [Identifier] in Cervix by Cyto stainMay Thomas DO Work Phone: appendectomyRoxannanthony Morin Work Phone: TonsillectomyRoxanum Morin Work Phone: Plan of Treatment DateCare ActivityDetailAuthorStart: 26-71-8702Pvxfwlddi for malignant neoplasm of cervixNOMS HealthcareStart: 36-30-1640Lrxitdukl for malignant neoplasm of cervixPap SmearNOMS HealthcareStart: 08-25-2025 End: 84-51-9044Jmahnrc encounter procedureNOMS SWS OBStart: 06-28-2025 End: 00-97-9104RASHZTLD CBC WITHOUT DIFF ([facility])HEMOGRAM CBC WITHOUT DIFF ([facility]) Lab Routine Positive P-ANCA titer Elevated platelet count Expected: 06/28/2025 (Approximate), Expires: 01/05/2026[facility] Work Phone: Comment on above:Expected: 06/28/2025 (Approximate), Expires: 01/05/2026Start: 02-25-2025 End: 17-66-0565Yhadsbc encounter procedureNOIN SWS IMStart: 02-10-2025 End: 12-00-5420Tupicyu encounter nryolooxx25/03/2025 3:30 PM EST Office Visit [facility] [address] [place] [phone] May Thomas DO [address] [place] [address] RAFY MOULTONNStart: 01-05-2025 End: 01-05-2026 reactive protein [Mass/volume] in Serum or PlasmaC-reactive protein Lab Routine Positive P-ANCA titer New onset headache Expected: 01/05/2025 (Approximate), Expires: 01/05/2026[facility] HealthcareComment on above: Expected: 01/05/2025 (Approximate), Expires: 01/05/2026Start: 01-05-2025 End: 37-30-0949Gjwoisnfdmfpp metabolic 2000 panel - Serum or PlasmaComprehensive metabolic panel Lab Routine Elevated platelet count Kidney donor Expected: 01/05/2025(Approximate), Expires: 01/05/2026[facility] HealthcareComment on above: Expected: 01/05/2025 (Approximate), Expires: 01/05/2026Start: 01-05-2025 End: 08-39-8019Eivsegqfhsw sedimentation rateSedimentation rate, automated Lab Routine Positive P-ANCA titer New onset headache Expected: 01/05/2025, Expires: 01/05/2026NOMS HealthcareComment on above:Expected: 01/05/2025, Expires: 01/05/2026Start: 01-05-2025 End: 70-44-8538QZ Brain WO and W contrast IVMR brain w and wo contrast routine Imaging Routine Positive P-ANCA titer Elevated platelet count New onset headache Expected: 01/05/2025, Expires: 01/05/2026NOMS HealthcareComment on above: Expected: 01/05/2025, Expires: 01/05/2026Start: 01-05-2025 End: 81-16-1358Rojrfxoewga [Units/volume] in Serum or PlasmaTSH Lab Routine Positive P-ANCA titer Elevated platelet count New onset headache Kidney donor Expected: 01/05/2025 (Approximate), Expires: 01/05/2026[facility] HealthcareComment on above:Expected: 01/05/2025 (Approximate), Expires: 01/05/2026Start: 11-09-2024 COVID-19 Vaccine ( season)COVID-19 Vaccine ( season)[facility] HealthcareStart: 02-43-6781Aalcqxwfa vaccinationNOMS HealthcareStart: 07-09-2024 End: 29-17-0859Vbtuqwk encounter procedureNOMS SWS PODIATRYComment on above: ArrivedStart: 07-02-2024 End: 72-53-4722Tvogzaf encounter lvnejzjts76/24/2025 8:45 AM EDT Office Visit [facility] [address] [place] [phone] Jaelyn Fowler DPM [address] [place] [address] ArrivedNOMS SWS PODIATRYComment on above:ArrivedStart: 02-25-2024 End: 68-84-9805Tqueqeo encounter vokujzpwd74/17/2024 3:00 PM EST Office Visit [facility] [address] [place] [address] Fatou Branes, DO [address] [place] [address] [facility] SWS IMStart: 42-23-5550Egsxxzlre vaccination Influenza Vaccine (#1)NOMS HealthcareComment on above:Postponed from 11/10/2023 (Patient Refused)Start: 83-55-9759Dewfyefej vaccinationMercy Health Defiance Hospital Start: 09-18-2023 End: 59-57-6780ZWQYVAQVNI REFLEX TO CULTUREMercy Health Defiance HospitalComment on above:Expected: 09/18/2023, Expires: 09/17/2024Start: 09-18-2023 End: 56-25-4409Enenske encounter wpvofzftz25/10/2024 10:00 AM EDT Office Visit [facility] [address] [place] [address] Natanael Kay MD, PhD [address] [place] [address] [facility] 08-23-2023 End: 36-19-7535Peyzckyixor donor nephrectomy living donorDONOR NEPHRECTOMY LIVING DONOR LAPAROSCOPIC Kidney [facility]/23/2023 [facility] Start: 08-23-2023 End: 28-74-4428Xwqvetvrsf and management of inpatientBASUComment on above:Kidney donorDONOR NEPHRECTOMY LIVING DONOR LAPAROSCOPICStart: 08-12-2023 End: 15-13-1573MCT IGG/IGM TOTAL - [facility] Work Phone: Comment on above:Expected: 08/12/2023, Expires: 08/11/2024Start: 08-12-2023 End: 18-75-2043QUPWL T&B FLOW CROSSMATCHMercy Health Defiance HospitalComment on above:Expected: 08/12/2023, Expires: 08/11/2024Start: 08-12-2023 End: 83-39-3105Mngltrrn ECGECG ECG Routine Kidney donor Expected: 08/12/2023, Expires: 08/11/2024OSSelect [facility] DublinComment on above:Expected: 08/12/2023, Expires: 08/11/2024Start: 08-12-2023 End: 05-87-1691WQO LIVING DONOROSU Genesis HospitalComment on above: Expected: 08/12/2023, Expires: 08/11/2024Start: 08-12-2023 End: 82-97-3589LBOQ AND SCREEN - PREADMISSIONTYPE AND SCREEN - PREADMISSION Blood Bank Routine Kidney donor Expected: 08/12/2023, Expires: 08/11/2024Mer[facility] Def[facility] HospitalComment on above:Expected: 08/12/2023, Expires: 08/11/2024 Start: 08-12-2023 End: 30-43-1958TULYVWPECM REFLEX TO CULTUREMercy Health Defiance HospitalComment on above:Expected: 08/12/2023, Expires: 08/11/2024Start: 71-44-0218Lvecdagdbw hospital visit by gzhwxeqjm50/15/2024 7:40 PM EDT Hospital Encounter Imaging [facility] [address] [place] [address] Tayla Mazariegos MD, PhD [address] [place] [phone] Imaging [facility] HealthcareStart: 06-10-2023 End: 95-48-2029OX Chest PA and LateralXR CHEST PA AND LATERAL 2 VIEWS Imaging Routine Kidney donor Expected: 06/10/2023, Expires: 05/26/2024Mer[facility] Defiance HospitalComment on above:Expected: 06/10/2023, Expires: 05/26/2024Start: 05-27-2023 End: 61-37-1637RPTKF T&B FLOW CROSSMATCHDONOR T&B FLOW CROSSMATCH Lab Routine Kidney donor Expected: 05/27/2023, Expires: 05/26/2024[facility] Comment on above:Expected: 05/27/2023, Expires: 05/26/2024Start: 05-27-2023 End: 46-65-2785HHN TYPING (SOLID ORGAN)HLA TYPING (SOLID ORGAN) Lab Routine Kidney donor Expected: 05/27/2023, Expires: 05/26/2024[facility] Comment on above:Expected: 05/27/2023, Expires: 05/26/2024Start: 05-27-2023 End: 74-98-1492Sfvkyhai ECGECG ECG Routine Kidney donor Expected: 05/27/2023, Expires: 05/26/2024[facility] Work Phone: Comment on above:Expected: 05/27/2023, Expires: 05/26/2024Start: 96-13-3104BYFMI-19 VACCINE ( season)COVID-19 VACCINE ( season)[facility]art: 63-62-5239Ckpweyv vaccinationTETANUSOSHighland District Hospitaltart: 57-45-2830Tnfhktsay for malignant neoplasm of cervixCERVICAL CANCER SCREENING DISCUSSIONOSHighland District Hospitaltart: 68-85-7599Jeblcdydx B Vaccines (1 of 3 - 19+ 3-dose series) Hepatitis B Vaccines (1 of 3 - 19+ 3-dose series)NOM HealthcareStart: 58-94-9686Keacwxqcyblb Vaccine: Pediatrics (0 to 5 Years) and At-Risk Patients (6 to 64 Years) (1 of 2 - PCV)Pneumococcal Vaccine: Pediatrics (0 to 5 Years) and At-Risk Patients (6 to 64 Years) (1 of 2 - PCV)[facility]OM[facility] HealthcareStart: 91-49-0255Pptga diphtheria, tetanus and acellular pertussis (DTaP) vaccination TDAP (ADULT)[facility] Hospitaltart: 72-49-2619BQV screeningHIV SCREENING DISCUSSIONOSHighland District Hospitaltart: 01-32-1373Qklktpy of varicella vaccinationVaricella Vaccines (1 of 2 - 13+ 2-dose series)[facility] HealthcareStart: 22-29-1721ZXhN/Tdap/Td Vaccines (2 - Tdap)DTaP/Tdap/Td Vaccines (2 - Tdap)[facility] HealthcareStart: 54-87-7174DXE Vaccines (1 of 1 - Standard series)MMR Vaccines (1 of 1 - Standard series)[facility] HealthcareStart: 19-40-4277Eqcfufjzx C screening HEPATITIS C VIRUS SCREENINGOSSelect Medical [facility] End: 90-58-3292YA angiography of renal arteryOSSelect Medical [facility] Work Phone: Comment on above:1 Occurrences starting 06/09/2023 until 06/09/2023LIDON PERFOMABLEDLIDON PERFOMABLE Lab Routine Kidney donor 08/12/2023 10:50 [facility] T[facility]B FLOW CROSSMATCHDONOR T&B FLOW CROSSMATCH Lab Routine Kidney donor 06/10/2023 10:47 AM [facility]EX[facility] 24 HR URINE TUBEEXTRA 24 HR URINE TUBE Lab Routine Kidney donor 06/10/2023 10:47 AM [facility] HospitalEXTRA MICROEXTRA MICRO Fluids Routine Donor, kidney 09/18/2023 10:04 AM [facility] EXTRA MICROEXTRA MICRO Fluids Routine Kidney donor 08/12/2023 10:50 AM [facility] HospitalEXTRA TUBESEXTRA TUBES Lab Routine Kidney donor 06/10/2023 10:47 AM [facility] HospitalHLA TYPING (SOLID ORGAN)HLA TYPING (SOLID ORGAN) Lab Routine Kidney donor 06/10/2023 10:47 AM [facility] OXALATE, 24HR URINEOXALATE, 24HR URINE Fluids Routine Kidney donor 06/10/2023 10:47 AM [facility] HospitalReagin Ab [Presence] in Serum by RPRRPR ([facility]) Lab Routine Kidney donor 08/12/2023 10:50 AM [facility] SENDOUT TEST MISCELLANEOUS LABCORPSENDOUT TEST MISCELLANEOUS [facility] Lab Routine Screening for malignant neoplasm of cervix Ordered: 01/09/2024[facility] Work Phone: comment on above:Ordered: 01/09/2024 Immunizations Immunization DateImmunizationNotesCare JbukmmluAqazlmpw28-20-9573dmvmi papilloma virus vaccine, quadrivalentKathleen Rinkes DO Work Phone: [facility]woodSbsnwjveci78-76-1892donge papilloma virus vaccine, quadrivalentKathleen Rinkes DO Work Phone: [facility] KirkwoodNzalzpvnqt18-53-2485uiezn papilloma virus vaccine, quadrivalentKathleen Rinkes DO Work Phone: [facility] KirkwoodEhiklusghv07-19-0175oncdmrobi virus vaccine, unspecified formulationTayla Mazariegos MD, PhD Work Phone: [facility] HospitalPhssww01-80-7101ypmnminjb B vaccine, pediatric or pediatric/adolescent dosageRoxanne B Mikel Work Phone: [phone]-Ghpakd [facility] Work Phone: [phone] B vaccine, pediatric or pediatric/adolescent dosageRoxanne B Mikel Work Phone: [phone]-Qjiqtk [facility] Work Phone: [phone]dsvqeo B vaccine, pediatric or pediatric/adolescent dosageRoxanne B Mikel Work Phone: [phone]-Gwvocy [facility] Work Phone: [phone]elroej, mumps and rubella virus vaccine Tonia Morin Work Phone: [phone]-Kltdbl [facility] Work Phone: [phone]uinm and diphtheria toxoids, adsorbed, preservative free, for adult use (5 Lf of tetanus toxoid and 2 Lf of diphtheria toxoid)Toniaanum Morin Work Phone: [phone]-Sukdly [facility] Work Phone: [phone]c, tetanus toxoids and pertussis vaccineDebbieanum Morin Work Phone: [phone]-Vykzay [facility] Work Phone: [phone] 112-551104557039-07-4616zevfznaut poliovirus vaccine, live, oral Tonia B Mikel Work Phone: [phone]-Cyrvcx [facility] Work Phone: [phone]uxozuj, tetanus toxoids and pertussis vaccineRoxanne B Morin Work Phone: [phone]-Byvwnc [facility] Work Phone: [phone]bdyshx poliovirus vaccine, live, oral Tonia B Morin Work Phone: [phone]-MegvbeBaptist Health [facility] Work Phone: [phone]lrhrubut influenzae type b vaccine, HbOC conjugateRoxanne B Mikel Work Phone: [phone]-YgpsmaBaptist Health Wolfson [facility]'S Hospital Work Phone: [phone]hagz, mumps and rubella virus vaccine Tonia B Mikel Work Phone: [phone]-KtkssbBaptist Health Wolfson [facility]'S Hospital Work Phone: [phone]qg, tetanus toxoids and pertussis vaccineRoxanne B Morin Work Phone: [phone]-PfwvekBaptist Health Wolfson [facility]'S Hospital Work Phone: [phone]nepdcp, tetanus toxoids and pertussis vaccineRoxanne B Morin Work Phone: [phone]-Ayfvmw [facility] Work Phone: [phone]bllom poliovirus vaccine, live, oral Tonia B Mikel Work Phone: [phone]-RkuxokBaptist Health Wolfson [facility]'S Hospital Work Phone: [phone]jvdzaq, tetanus toxoids and pertussis vaccineRoxanne B Morin Work Phone: [phone]-EckbjdBaptist Health [facility] Work Phone: [phone]bcppo poliovirus vaccine, live, oral Tonia Morin Work Phone: [phone]-Thzotu [facility] Work Phone: Payers DatePayer CategoryPayerChester County Hospitaly [id number]-rdp [id number] [id number] Health Insurance 1..[id number].615036.92819-92-6793Yedfzph61-03-9787 [id number] 2.0.1.869349.3.57[id number] 2.840.1.734245.3.57[id number] 2.0.1.468438.3.57[id number] 2.840.1.587016.3.57[id number] 2.0.1.946911.3.57[id number] 2.16840.1.715457.3.57[id number] 2.16840.1.336207.3.57[id number] 2.16840.1.346355.3.57[id number] 2.16840.1.742847.3.57[id number] 2.16.840.1.012016.3.57[id number] 2.16.840.1.175148.3.579.2.649592-98-1616Dtulzbg21366858296366-09-5072Mdpcsms [id number] 2.16.840.1.047037.3.57[id number] 2.16.840.1.950121.3.57[id number] 2.16.840.1.716627.3.57[id number] 2.16.840.1.971584.3.579.2.594UnknownHCAP/HFA/FAP [id number] 00631b78-fd1p-545s-0p2w-[id number] 2.16.840.1.937595.3.579.2.531 Social History DateTypeDetailFacilityStart: 05-10-2023 End: 96-20-7749Veoae a smokerNever a smokerWest [place] [employer] Other Start: 05-10-2023 End: 96-21-0760Jaa Assigned At [facility] [employer] Other Start: 10-27-2018 End: 16-73-0912Ifowewf smoking status NHISNever smoked tobacco (finding) [facility]: 21-68-6756Jrh Assigned At [facility]art: 11-08-2022 End: 11-37-8098Xkivawb use and exposureSmokeless tobacco non-userOSU [facility] Hospitaltart: 06-10-2023 End: 26-77-1926Pzwwusarn beverage intakeEx-drinker (finding)[facility]art: 75-11-2557Ysd assigned at birthNot on fileOSSelect Medical [facility] Start: 93-07-7992Cghgumo CommentCaffeine intake: noneNOMS HealthcareStart: 21-00-9671Gxgsda identityIdentifies as female gender (finding)[facility] Start: 57-82-5353Ucqnkf orientationHeterosexual (finding)[facility] HealthcareSex Female (finding)[facility]art: 58-93-5603Iytyjeljf beverage intakeLifetime non-drinker (finding)[facility] HealthcareStart: 43-06-0967Tcf FemaleSaint Joseph Hospital of [facility] Clinical Notes 02-28-2021 to 01-05-2025 Note Date & PebsFpxjFpswtpne24-94-4309 History of Present illness Narrative* Fatou Marr DO - 01/05/2025 1:36 PM EDTAssociated Problem(s): [...] see is insurance will cover. 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 Will get labs and MRI (with and without contrast) to better assess for evidence of inflammation * Fatou Marr DO - 01/05/2025 9:45 AM EDT Images from the original note were not included. Subjective Patient ID: Chrystal Maosn (: 1985) is a 39 y.o. female who presents for Migraine. HPI: Chrystal is being seen for an acute visit today. She scheduled the appt to discuss (migraine) headaches. She does not currently have documented hx of Migraines/headaches. Today, she reports she has been having headaches for several years, but has mainly discussed with her SEXUAL HEALTH PHYSICIAN as she has seemed to correlate the [...] UT) capsule 1 capsule, Every 24 hours Nnriyzghwsc-Wrsqgyrhh-Nuttkj (Trelegy Ellipta) 200-62.5-25 MCG/ACT aerosol powder 1 puff, Daily Melatonin 5 mg, Nightly PRN Multiple Vitamins-Minerals (MULTIVITAMIN GUMMIES ADULTS PO) 1 tablet, Daily norethindrone-ethinyl estradiol (Loestrin ,) 1-20 MG-MCG tablet 1 tablet, Oral, [...] lb 6.4 oz SpO2 98% BMI 25.68 kg/m Physical Exam Constitutional: General: She is not [...] inflammation Relevant Orders HEMOGRAM CBC WITHOUT DIFF ([facility]) TSH Sedimentation rate, automated C-reactive protein MR [...] count Relevant Orders HEMOGRAM CBC WITHOUT DIFF ([facility]) Comprehensive metabolic panel TSH MR brain w [...] done Influenza Vaccine (1) 11/09/2024 COVID-19 Vaccine ( - season) Never done Cervical Cancer Screening [...] the visit. -Follow up with Dr. Fatou Marr in about 7 weeks (around 02/25/2025), annual preventive visit as previously scheduled. Fatou Marr D.O. Board Certified Truck Striker [1] No Known Allergies [2] Patient Active [...] none Drug use: Never documented in this encounterSaint Joseph Hospital of KirkwoodGvodhxqtls78-77-2845 History of Present illness Narrative* Jaelyn Fowler [...] tolerated. RTC: as needed. documented in this [facility]04-24-2025 History of Present illness Narrative* Jaelyn Fowler [...] 1-2 weeks for recheck. documented in this encounterSaint Joseph Hospital of KirkwoodVyddnpaupf73-01-0977 History of Present illness Narrative* Jaelyn Fowler [...] once approved with insurance. documented in this [facility]12-17-2024 History of Present illness Narrative* Fatou Marr, [...] UT) capsule 1 capsule, Every 24 hours Hmvefqrxruc-Iwdbyyrso-Eygiua (Trelegy Ellipta) 200-62.5-25 MCG/ACT aerosol powder 1 [...] Preventive visit. Fatou Marr D.O. Board Certified Truck Striker documented in this encounterSaint Joseph Hospital of KirkwoodBnwvywakkx92-80-6843 History of Present illness Narrative* May Thomas [...] Review Audit Reviewed by Milli Wilde MA (Bridge Gang Worker) on 01/09/24 at 1545 Medication Order Taking? Sig Documenting Provider Last Dose Status acetaminophen (Tylenol) 325 MG tablet [id number] No Take 325 mg by mouth every 6 (six) hours. Take two tablets as needed Historical ProviderMD Taking Active albuterol HFA 90 mcg/act inhaler [id number] No Inhale 2 puffs every 4 (four) hours if needed for wheezing or shortness of breath. Rx'd by Dr. Hewitt Historical ProviderMD Taking Active ascorbic acid (Vitamin C) 500 MG tablet [id number] No Take 500 mg by mouth in the morning. Fatou Marr, DO Taking Active cholecalciferol (Vitamin D-3) 25 MCG (1000 UT) capsule [id number] No Take 1 capsule by mouth 1 (one) time each day at the same time. Historical ProviderMD Taking Active Coccepgudxz-Nofkozzit-Cyxwsr (Trelegy Ellipta) 200-62.5-25 MCG/ACT aerosol powder [id number] No Inhale 1 puff in the morning. Rx'd by Dr. Hewitt. Historical ProviderMD Taking Active Loestrin 1/20, 21, 1-20 MG-MCG tablet [id number] No Take 1 tablet by mouth in the morning. Take continuous.. May Thomas, DO Taking Active Melatonin 5 MG sublingual tablet [id number] No Place 5 mg under the tongue as needed at bedtime (sleep issues). Historical Provider, Taking Active Multiple Vitamins-Minerals (MULTIVITAMIN GUMMIES ADULTS PO) [id number] No Take 1 tablet by mouth in the morning. Historical Provider, Taking Active Turmeric 500 MG capsule [id number] No Take 1 tablet by mouth 1 [...] 08/23/2023 IR INJECTION NERVE BLOCK PELVIC LAPAROSCOPY 2019 Diagnostic laparoscopy PELVIC LAPAROSCOPY 2013 Diagnostic laparoscopy [...] 21,) 1-20 MG-MCG tablet documented in this encounterSaint Joseph Hospital of KirkwoodFhtgksrplo51-68-2228 History of Present illness Narrative* Prema Herrera [...] skin every 24 hours. 12 mL 0 Rwrghjmnrcq-Ndsvsmayt-Rhavqx 200-62.5-25 MCG/ACT Aerosol Powder, breath activated Inhale [...] call with any needs. documented in this encounterMer[facility]07-10-2024 Instructions* Patient Instructions* Prema Herrera RN [...] for your amazing gift!!! documented in this encounterMercy Health Defiance Hospital06-16-2024 Nurse Note* Nursing Notes - Crystal Cao RN - 08/25/2023 3:54 PM EDT AVS reviewed with pt and family. All questions and concerns answered and addressed. Pt discharged with all personal belongings, accompanied by RN and family, via wheelchair. No barriers to discharge at this time. [facility]06-16-2024 Miscellaneous Notes* Nursing Notes - Crystal [...] protein powders and other protein supplements, encouraged terminal computer operator hydration, Encouraged to contact donor transplant team [...] PM EDT Ms. Mason was admitted to [address] [place] [address]. On admission to [facility], from PACU a dual RN initial assessment [...] Laparoscopic left donor nephrectomy SURGEON: Gamaliel Drake, BOGDAN Fellow- Steven Llanos MD ANESTHESIA: General endotracheal. 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] PROCEDURE PERFORMED Procedure(s) (LRB): DONOR NEPHRECTOMY LIVING DONOR LAPAROSCOPIC (Left) PRIMARY CLOSURE Yes INTRAOPERATIVE FINDINGS No abnormalities SURGEON Surgeons and Role: * BOGDAN Drake - Primary ANESTHESIOLOGIST Anesthesiologist: Cher Cash MD; Chino Andrews MD GOODYEAR STITCHER: Leila Gallo APRN-GOODYEAR STITCHER; Aristides George APRN-VAL SURGICAL STAFF Sustainable Design Consultant: Titus Traore RN Relief Sustainable Design Consultant: Sweta Cleary RN Scrub Person: Kyle Elkins Resident Assisting: Manish Naranjo MD Fellow: Steven Llanos MD COMPLICATIONS None ESTIMATED BLOOD LOSS 100 ml SPECIMENS No specimen sent * No specimens in log * [facility] BOGDAN Drake August 23, 2023 2:14 PM * Nursing Notes - Tonie Avalos RN - 08/23/2023 9:29 AM EDT Report given to Beverly Sharpe RN SPR documented in this encounterMercy Health Defiance Hospital06-16-2024 History of Present illness Narrative* Socorro Rodriguez - 08/25/2023 12:29 PM EDT Images from the original note were not included. [facility] Note: Bedside Delivery Documentation The following prescription(s) were delivered to the nurse's station, Nurse Crystal Cao RN . [facility] ([place]) [phone] [facility] [phone] [facility] Bedside Delivery [phone] [facility] [phone] [facility] Delivery [phone] [facility] [phone] [facility] [phone] [place] [phone] [place] [phone] * Sabrina Kellogg [facility] - 08/25/2023 12:01 PM EDT Images from the original note were not included. [facility] Note: Non-Verbal Med Rec [facility] received the following discharge prescription(s): Total cost is $0. I have reviewed the Discharge Rx Reconciliation Report. The discharge prescription(s) will be delivered to the patient on 08/25/2023. Sabrina Kellogg [facility] ([place]) [phone] [facility] [phone] [facility] Bedside Delivery [phone] [facility] [phone] [facility] [phone] [facility] [phone] [facility] [phone] [place] [phone] [place] [phone] * BOB Colmenares - 08/25/2023 11:45 AM EDT MOOSE called pt in order to follow-up with her regarding her recent donation. Pt donated to her friend on 08/23/2023. MOOSE left pt a message requesting a return call. Mere Lind EVP MARKETING,PAIN COORDINATOR Independent Living Donor Advocate [phone] * Manish Naranjo MD - 08/25/2023 5:40 [...] fellow, advanced practice provider and/or resident, physician assistant fitness manager, transplant pharmacy, discharge planning and nursing. Manish [...] RN - 08/24/2023 4:47 PM EDT Clinical Weatherization Field Technician (CCM) Post-Operative Assessment of Discharge Needs for Living Donor Assessment Patient presented to hospital for kidney donation surgery on 08/23/23. She is independent with activities of daily living, including driving. Patient's primary support person at discharge will be spouse and mother. [facility] did review demographicsheet with the patient to confirm accuracy. Outside services: Not Applicable Provided by: Not Applicable Durable medical equipment: None. Medical supplies: None. Patient Care Team: Fatou Marr DO as PCP - General (Internal Medicine) Other [facility] as PCP - Tong Setter (Transplant) Financial Patient is employed full-time. Patient denies financial concerns related to taking time off from work related to her organ donation. Post-Operative Appointments & Medications Follow-Up Appointments scheduled by the [facility] in the [facility]. [facility] has reviewed the patient's chart to confirm appointments are reflected. Patient was reminded to fruit picker discharge transplant medications from the outpatient [facility]. Discharge Plan Prior to admission she was living with her . Patient will discharge home with the support ofher and mother. Patient will not need transportation assistance home at discharge. Patient assessment does not identify needs by the clinical director case at this time. Reconsult Case Management if discharge needs arise. Gardenia BRADFORD RN Clinical Weatherization Field Technician Please note that I am a float director case and may not cover the same service every day. Please call the main Case Management office at [phone] for up-to-date coverage. Verified patients identity using date of . Appropriate PPE utilized. * Dipika Arellano RD - 08/24/2023 10:02 AM EDT NUTRITION CONSULT FOR DONOR NEPHRECTOMYASSESSMENT & EDUCATION Nutrition Plan of Care/DISCHARGE PLAN Continue current diet order; Monitor return of bowel function adj bowel regimen intermediate teacher avoid protein powders and other protein supplements, encouraged terminal computer operator hydration, Encouraged to contact donor transplant team [...] Thanks Dipika Arellano, MS, RD, LD Pager: [phone] For up to date coverage please see WebVulevúhange schedule for Dietitian Laborer Vegetable Farm or Dietitian Weekends/Holidays Schedule. Thank you. 08/24/23Pt [...] (adm wt: 58.5 kg) Energy Requirements (kcal/day): 0249-3589 Kcal/k-33 Protein Requirements (g/day): 45-70 Protein (g/kg): [...] fellow, advanced practice provider and/or resident, physician assistant fitness manager, transplant pharmacy, discharge planning and nursing. Manish [...] please do not hesitate to page the director of recreation therapy resident (on WebExchange, search Transplant > director of recreation therapy now > Resident Consult Days TRR OR Resident Evenings and Weekends [Evenings start at 5pm except start at 6pm] ). Stephie Jon MD PGY-2 General Surgery [phone] * Radha Cosby, [facility] - 08/23/2023 3:38 PM EDT Department of Pharmacy Transplant Note Patient: Chrystal Mason Room/Bed: [facility] Chrystal Mason is s/p donor nephrectomy on [...] team. Name: Radha Cosby RPH Phone #: [phone] Date/Time: 08/23/2023 3:39 PM * Sheyla Ceronalba - 08/22/2023 3:49 PM EDTSummary: Pharmacy Med [...] cholecalciferol PO TO 1,000 unit cap daily. fdwgkxzghyt-eexypxkeb-ezsujw IN, inhale TO 200-62.5-25 mcg/act, inhale 1 puff daily. Probiotic product PO TO take 1 cap daily. OARRs Report: Has been reviewed. Medications that need removed from Outside Medication Reconciliation list: Please remove all medications. Please feel free to contact me with any further questions. Name: Sheyla Adkins Phone #: [phone] Date/Time: 08/22/2023 3:50 PM Time Spent: 10 minutes Associated attestation - Radha Cosby RPH - 08/22/2023 4:04 PM EDT Department of Pharmacy Admission Medication Reconciliation Note Patient: Chrystal Mason Room/Bed: Room/bed info not found I have reviewed the home medication list with the Bilingual Social Worker. The home medication list status is: complete. All changes to the home medication list have been updated in IHIS. Updated BIOMATERIALS ENGINEER Med List: Cannot display prior to admission medications because the patient has not been admitted in this contact. Please feel free to contact me with any further questions. Name: Radha Cosby Pablito Phone #: [phone] Date/Time: 08/22/2023 4:04 PM [facility] Plan of care note* Plan of Care - Dipika Arellano RD - 08/24/2023 10:48 AM EDT Problem: Oral Intake Inadequate Goal: Improved Oral Intake Outcome: Progressing Nutrition Plan of Care/DISCHARGE PLAN Continue current diet order; Monitor return of bowel function adj bowel regimen intermediate teacher avoid protein powders and other protein supplements, encouraged alf hydration, Encouraged to contact donor transplant team [...] this will act as their discharge recommendations [facility] Nurse Note* Nursing Notes - Zakia Moya RN - 08/23/2023 4:29 PM EDT Ms. Mason was admitted to [address] [place] [address]. On admission to [facility], from PACU a dual RN initial assessment [...] belt at bedside Education on falls provided. [facility] Discharge instructions* Discharge Instructions* Yesica Alas, FLOORING SALES MANAGER-CAMPUS REP - 08/23/2023 3:22 PM EDT TO CONTACT US: To reach a Coordinator: Call the PreTransplant Office [phone] (8:00am -4:00pm) After hours call the PreTransplant [...] sent through Care Everywhere. * Anticoagulant: Injectable (Namibian) [facility] Nurse Surgical operation note* Titus Traore RN - 08/23/2023 2:47 PM EDT Report given to Roseanna FIRESTOP/CONTAINMENT WORKER. All questions answered. Patient to be transported to PACU with anesthesia. [facility] Nurse Note* Titus Traore RN - 08/23/2023 2:47 PM EDT Report given to Roseanna FIRESTOP/CONTAINMENT WORKER. All questions answered. Patient to be transported to PACU with anesthesia. [facility] Surgery Postoperative evaluation and management note* Op [...] throughout the case. 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] PROCEDURE PERFORMED Procedure(s) (LRB): DONOR NEPHRECTOMY LIVING DONOR LAPAROSCOPIC (Left) PRIMARY CLOSURE Yes INTRAOPERATIVE FINDINGS No abnormalities SURGEON Surgeons and Role: * BOGDAN Drake - Primary ANESTHESIOLOGIST Anesthesiologist: Cher Cash MD; Chino Andrews MD GOODYEAR STITCHER: Leila Gallo APRN-GOODYEAR STITCHER; ALMA Barney SURGICAL STAFF Sustainable Design Consultant: Titus Traore RN Relief Sustainable Design Consultant: Sweta Cleary RN Scrub Person: Kyle Elkins Resident Assisting: Manish Naranjo MD Fellow: Steven Llanos MD COMPLICATIONS None ESTIMATED BLOOD LOSS 100 ml SPECIMENS No specimen sent * No specimens in log * [facility] BOGDAN Drake August 23, 2023 2:14 PM [facility] Note* Nursing Notes - Tonie Avalos RN - 08/23/2023 9:29 AM EDT Report given to Beverly Sharpe RN SPR [facility] History and physical note* Manish Naranjo MD [...] acid (VITAMIN C) 500 mg, Oral, DAILY Tehkzooxeqq-Rlskzaszr-Sumzpr 200-62.5-25 MCG/ACT Aerosol Powder, breath activated 1 [...] Naranjo MD Department of General Surgery Pager: [phone] Associated attestation - Bebeto Balderrama MBBS - 08/23/2023 11:01 AM EDT I saw and examined Chrystal Mason on 08/23/2023 prior to surgery. The risks and benefits of donor nephrectomy were discussed. I explained the potential complications that may occur during/after donornephrectomy that include but are not limited to bleeding, infection, need for additional procedures. BOGDAN Drake [facility] History and physical note* Manish Naranjo [...] acid (VITAMIN C) 500 mg, Oral, DAILY Ayhpzutbirf-Pgscqqkoq-Jdjkki 200-62.5-25 MCG/ACT Aerosol Powder, breath activated 1 [...] Naranjo MD Department of General Surgery Pager: [phone] Associated attestation - Bebeto Balderrama MBBS - 08/23/2023 11:01 AM EDT I saw and examined Chrystal Mason on 08/23/2023 prior to surgery. The risks and benefits of donor nephrectomy were discussed. I explained the potential complications that may occur during/after donornephrectomy that include but are not limited to bleeding, infection, need for additional procedures. BOGDAN Drake [facility] History of Present illness Narrative* Chino [...] yrs post donation Donor notified that The [facility] Transplant program is required to obtain a living donor blood specimen at surgery to store the specimen for 10 years, only to be used for investigation of potential donor-derived disease. * BOB Colmenares - 08/12/2023 9:00 AM EDT MOOSE met with this 38 y.o. Female who is scheduled to be a kidney donor to her friend on 08/23/2023. 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 MOOSE reviewed health care power of traffic law attorney (HCPOA) information with pt and provided her with the documents. MOOSE discussed Legal Next Of Kin. MOOSE discussed that by designating a HCPOA, this allows for her to name a person to act on her behalf to make health care decisions if she was unable to make the decision herself. MOOSE explained that designating a HCPOA is only for health care decisions and not financial power of traffic law attorney. MOOSE advised HCPOA does not have to [...] call with any needs. documented in this [facility]06-03-2024 Instructions* Patient Instructions* Chino Sweeney RN - [...] finished. Once discharged from the hospital, our director of recreation therapy coordinator can be reached after 4pm or [...] for discharge - [facility] ([facility], [address]) Donor [...] not apply lotions, perfumes, deodorants, or nail panamanian. Do not shave the surgical site yourself. [...] Where can you learn more? Go to http://www.Craft Dragon.[facility].edu/patiented. Enter A490 in the search box to learn more about 'Laparoscopic Nephrectomy: Before Your Surgery.' Interested in seeing a video go to [email or web address] Dragon.Open [email or web address]/videolibrary to see all video content. Current as of: October 20, 2018 Content Version: 12.5 Context app. Care instructions adapted under license by your healthcare professional. If you have questions about a medical condition or this instruction, always ask your healthcare professional. Context app disclaims any warranty or liability for your [...] or dog food bags, or a vacuum telephone cleaner. Hold a pillow over the cuts [...] taking a prescription pain medicine, take an qvyi-tvg-kqkimpp medicine that your doctor recommends. Read and [...] Where can you learn more? Go to http://www.Craft Dragon.[facility].edu/patiented. Enter L270 in the search box to learn more about 'Laparoscopic Nephrectomy: What to Expect at Home.' Interested in seeing a video go to https://Craft Dragon.[facility].edu/videolibrary to see all video content. Current as of: October 20, 2018 Content Version: 12. Context app. Care instructions adapted under license by your healthcare professional. If you have questions about a medical condition or this instruction, always ask your healthcare professional. Context app disclaims any warranty or liability for your [...] if you feel better. [facility] History of Present illness Narrative* ROSALIO Garcia - 06/10/2023 10:00 AM EDT Transplant Donor Psychosocial Evaluation Demographics: Patient is a 38 y.o., White, female who presented for a Kidney donor transplant evaluation.Patient completed evaluation with spouse. Patient was AOx4. The [facility] psychosocial assessment consentform has been signed and this health and social care teacher informed patient confidentiality. Patient does demonstrate the ability to make informed decisions. vacuum worker educated patient on the benefits of havingadvanced directives. Patient identifies with ORIENTAL ORTHODOX jewish. Patient confirms being a [place] Citizen. Patient's preferred language is Namibian. Patient identifies as an MYRANDA donor and her relationship to recipient is friend. Education: Patient's highest level of education is an Associate's degree in applied science (BIOMATERIALS ENGINEER). She denies a history of developmental delay [...] primary support team will include spouse (Vinicio Young). Additional support includes her mother (61) who [...] Full-Time. 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 DELICIA Garcia, ROSALIO-S Outpatient Transplant Fruit Dryer [facility] [address] [place], [place] [address] [email or web address] * Chino Sweeney RN - [...] CTA today during evaluation. Social work, KIKE, energy advisor and transplant surgeon also evaluated this patient. 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 She understands everything, all questions [...] and coordination of care. Mir Bagley M.D. pricing supervisor Wood Patternmaker Apprentice, Kidney and Pancreas Transplantation documented in this encounterMer[facility] Instructions* Patient Instructions* Chino Sweeney RN - 06/10/2023 10:00 AM EDT Images from the original note were not included. You have been seen in the living donor evaluation clinic. Your living donor coordinators are Cl, they can be reached at [phone] for questions during the donation process. You [...] not apply lotions, perfumes, deodorants, or nail panamanian. Do not shave the surgical site yourself. [...] Where can you learn more? Go to http://www.Craft Dragon.[facility].edu/patiented. Enter A490 in the search box to learn more about 'Laparoscopic Nephrectomy: Before Your Surgery.' Interested in seeing a video go to https://Craft Dragon.[employer] Englishu.edu/videolibrary to see all video content. Current as of: October 20, 2018 Content Version: 12.5 Context app. Care instructions adapted under license by your healthcare professional. If you have questions about a medical condition or this instruction, always ask your healthcare professional. Context app disclaims any warranty or liability for your [...] or dog food bags, or a vacuum telephone cleaner. Hold a pillow over the cuts [...] taking a prescription pain medicine, take an mapf-fbh-emznreu medicine that your doctor recommends. Read and [...] Where can you learn more? Go to http://www.Craft Dragon.[facility].edu/patiented. Enter L270 in the search box to learn more about 'Laparoscopic Nephrectomy: What to Expect at Home.' Interested in seeing a video go to https://Craft Dragon.[employer] Englishu.edu/videolibrary to see all video content. Current as of: October 20, 2018 Content Version: 12.5 Context app. Care instructions adapted under license by your healthcare professional. If you have questions about a medical condition or this instruction, always ask your healthcare professional. Context app disclaims any warranty or liability for your [...] if you feel better. documented in this [facility] History of Present illness Narrative* Chino [...] oral and IV medications as well as CONDUIT CLEANER if needed. I explained to her that the natural history of endometriosis and the possibility of flare after donations. * BOB Colmenares - 06/10/2023 7:30 AM EDT LIVING DONOR ADVOCATE ASSESSMENT vacuum worker requested as Living Donor Advocate for patient who is a potential kidney donor. The potential recipient is her friend. Pt met her friend when she worked with her friend's 15 years ago. Pt's friend has since moved away, but they have remained in contact. This health and social care teacher met with patient and discussed her motivations, [...] will not be shared with the recipient. MOOSE comments: none TRUE Patient understands she has [...] for the schools. 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 She has enough ill time to cover her leave, but she hopes to donate when she is on break. Pt denied that donating would cause her a financial hardship. Living Donor Advocate concerns: LDA did not identify any concerns and supports this patient s decision to donate. documented in this encounterMer[facility]04[facility] Instructions* Patient Instructions* Chino Sweeney RN - 06/10/2023 7:30 AM EDT [facility] NoteHNO ID: [id number] Author: Quinn Garza MD Service: ? Author Type: Physician Type: Progress Notes Filed: 04/11/2021 2:42 PM Note Text: Chrystal Teran is a 35 year old female. Consultation was requested by Dr. 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 Jan 2021: first visit with fish inspector; she had PFTs: mildly abnormal suggestive of [...] vomiting, diarrhea URINARY: negative for, dysuria, hematuria TESTICULAR/SEXUAL HEALTH PHYSICIAN: negative for, pain, swelling, genital lesions or [...] Acet-Ethinyl Est 1-20 mg-mcg per tablet - dlleg-3e-vjv-epa-fish oil 600-1,200 mg cap - multivitamin (MULTIPLE VITAMIN ORAL) Take 1 tablet by mouth once daily. - TURMERIC ORAL - MULTIVITAMIN TAB Take one(1) tablet daily. No current facility-administered medications for this visit. ALLERGIES: Patient has no known allergies. SOCIAL HISTORY: Social History Tobacco Use (more content not included)...[facility]12-21-2021 Evaluation note* Encounter Date Diagnosis Assessment Notes Treatment Notes Treatment Clinical Notes Feb, Wellness examination (ICD-10 - Z 00.00) Age appropriate screening & recommendations reviewed & discussed with patient. Feb,Granulomatosis with polyangiitis (ICD-10 - M31.30) See HPI for details on dx. Since last seen patient has been dx with Wegeners. She is seeing pulm, doing well. [employer] Other Evaluation noteNo InformationNort ZipMatch Other Evaluation noteNo assessment information available [facility] Work Phone: Evaluation note* Diagnosis Kidney donor [facility] Diagnosis Kidney donor- Primary [facility]* Diagnosis Kidney living donor evaluation, pre-op- Primary Kidney donor [facility] Diagnosis Kidney donor [facility] Diagnosis Kidney donor [facility] Diagnosis Kidney donor Kidney donor [facility] Diagnosis Kidney donor- Primary Renal donor Kidney donor [facility]* Diagnosis Donor, kidney- Primary Kidney donor [facility]* Diagnosis Encounter for preventative adult health care examination- Primary Periodic limb movement disorder Multiple pulmonary nodules Other diseases of lung, not elsewhere classified Irritable bowel syndrome with predominant constipation Mild intermittent asthma without complication ([facility]) Encounter for gynecological examination without abnormal finding Screening for malignant neoplasm of cervix Screening for malignant neoplasm of the cervix Encounter for surveillance of contraceptive pills documented in this encounter [facility]* Diagnosis Kidney donor- Primary Kidney donor Kidney donor [facility]* Diagnosis Encounter for preventative adult health care examination- Primary Periodic limb movement disorder Multiple pulmonary nodules Other diseases of lung, not elsewhere classified Irritable bowel syndrome with predominant constipation Mild intermittent asthma without complication (CMS/HCC) Encounter for preventative adult health care examination- Primary Influenza vaccination declined Kidney donor documented in this encounter [facility] Healthcare[facility]* Diagnosis Encounter for preventative adult health care examination- Primary Periodic limb movement disorder Multiple pulmonary nodules Other diseases of lung, not elsewhere classified Irritable bowel syndrome with predominant constipation Mild intermittent asthma without complication (CMS/HCC) Mechanical complication associated with orthopedic device, initial encounter (CMS/HCC)- Primary Left foot pain Pain in soft tissues of limb documented in this encounter [facility] HealthcareEvaluation note* Diagnosis Encounter for preventative adult health care examination- Primary Periodic limb movement disorder Multiple pulmonary nodules Other diseases of lung, not elsewhere classified Irritable bowel syndrome with predominant constipation Mild intermittent asthma without complication (CMS/HCC) Mechanical complication associated with orthopedic device, initial encounter- Primary Left foot pain Pain in soft tissues of limb documented in this encounter [facility] HealthcareEvaluation note* Diagnosis Encounter for preventative adult [...] following unspecified surgery documented in this encounter [facility] HealthcareEvaluation note* Diagnosis Encounter for preventative adult health care examination- Primary Periodic limb movement disorder Multiple pulmonary nodules Other diseases of lung, not elsewhere classified Irritable bowel syndrome with predominant constipation Mild intermittent asthma without complication (HCC) New onset headache- Primary Headache Positive P-ANCA titer Elevated platelet count Essential thrombocythemia Episodic paroxysmal hemicrania, not intractable Kidney donor documented in this encounter [facility] HealthcareHistory general Narrative - Reported* Type Description Date Medical History Polycystic ovaries Medical HistoryEndometriosisMedical HistoryBunionsMedical HistoryGranulomatosis with polyangitis (Steffen's)Surgical Historylaparoscopy for cyst removal on [id number] HistoryLaparoscopy for endometriosis10/2018Surgical History Tonsilectomy05/2020Hospitalization Historysee above [employer] Other History of Present illness Narrative* She [...] SH - nonsmoker. No EtOH. No drugs [facility] Work Phone: Reason for referral (narrative)* (Routine)Specialty Diagnoses / ProceduresReferred By ContactReferred To Contact [address] [place] [address] Referral IDStatusReasonStart DateExpiration DateVisits RequestedVisits Authorized * Radiology (Routine) - New RequestSpecialtyDiagnoses / ProceduresReferred By ContactReferred To Contact Procedures [facility] ANESTHESIA Jhonathan Santos MD [address] [place] [address] Referral IDStatusReasonStart DateExpiration DateVisits RequestedVisits [id number] [facility]No reason for referral information availableWilson Health Work Phone: Summary Purpose Family History Unknown Family Member Name Dates Details Family [...] of colon Unknown motherEndometriosisUnknowngrandparentMalignant neoplasmUnknown Advance Directives Advance Directive Response Recorded Date/ Time Advance Directives No November 2:24pm TypeDate RecordedPatient RepresentativeExplanationHealthCare Power of Golf Club Facer 08/23/2023 6:54 AMAdvance Directives/Living Will08/23/2023 6:54 AMDate Activated Date InactivatedComments08/23/2023 7:39 AMTypeDate RecordedPatient Sheet Metal Shop Helper ExplanationHealthCare Power of Attorney08/23/2023 6:54 AMAdvance Directives/Living [...] Complaint and Reason for Visit Chief Complaint [facility] wellness Chief Complaint Admit Date wellness screen November 20, 2024 8:04am Reason for Referral SpecialtyDiagnoses / ProceduresReferred By ContactReferred To Contact Diagnoses Kidney donor Procedures ECG Tayla Mazariegos MD, PhD [address] [place] [address] Referral IDStatusReasonStart DateExpiration DateVisits RequestedVisits [id number] / Procedures Referred By ContactReferred To Contact Diagnoses Kidney donor Procedures MRI ABDOMEN WITH AND WITHOUT CONTRAST MD MRI, ABDOMEN, COMBO Tayla Mazariegos MD, PhD [address] [place] [address] Referral IDStatusReasonStart DateExpiration DateVisits RequestedVisits [id number] / Procedures Referred By ContactReferred To Contact Diagnoses Kidney donor Procedures ECG Mir Bagley MD [address] [place] [address] Referral IDStatusReasonStart DateExpiration DateVisits RequestedVisits [id number] / Procedures Referred By ContactReferred To Contact Diagnoses Kidney donor Procedures CT ANGIO LIVING KIDNEY DONOR MD CT ANGIO, PELVIS, COMBO, INCL IMAGE PROC Tayla Mazariegos MD, PhD [address] [place] [address] Referral IDStatusReasonStart DateExpiration DateVisits RequestedVisits [id number]/29/20243/[id number] Additional Source Comments INFORMATION SOURCE (unrecogn ized section and content) DATE CREATED AUTHOR 02/23/2018 [facility] DATE CREATED AUTHOR AUTHOR'S ORGANIZ ATION 06/01/2021 [facility] DATE CREATED AUTHOR AUTHOR'S ORGANIZ ATION 07/13/2021 [facility] DATE CREATED AUTHOR AUTHOR'S ORGANIZ ATION 08/02/2021 [facility] DATE CREATED AUTHOR AUTHOR'S ORGANIZ ATION 03/04/2022 [facility] DATE CREATED AUTHOR AUTHOR'S ORGANIZ ATION 06/28/2024 [facility] DATE CREATED AUTHOR AUTHOR'S ORGANIZ ATION 11/22/2024 [facility] DATE CREATED AUTHOR AUTHOR'S ORGANIZ ATION 01/06/2025 [facility] EPIC REASON FOR VISIT (unrecogniz ed section and content) SpecialtyDiagnoses / ProceduresReferred By ContactReferred To Contact Diagnoses Kidney donor Procedures CT ANGIO LIVING KIDNEY DONOR MD CT ANGIO, PELVIS, COMBO, INCL IMAGE PROC Tayla Mazariegos MD, PhD [address] [place] [address] Referral IDStatusReasonStart DateExpiration DateVisits RequestedVisits [id number]/29/[id number] Donor EvaluationReasonCommentsKidney Donor EvaluationSpecialtyDiagnoses / Procedures Referred By ContactReferred To Contact Diagnoses Kidney donor Procedures MRI ABDOMEN WITH AND WITHOUT CONTRAST MD MRI, ABDOMEN, COMBO Tayla Mazariegos MD, PhD [address] [place] [address] Referral IDStatusReasonStart DateExpiration DateVisits RequestedVisits [id number] / Procedures Referred By ContactReferred To Contact Diagnoses Kidney donor Kidney donor [Z52.4] Procedures MD LAPAROSCOPY DONOR NEPHRECTOMY LIVING DONOR DONOR NEPHRECTOMY LIVING DONOR LAPAROSCOPIC Natanael Kay MD, PhD [address] [place] [address] [facility] [address] [place] [address] Referral IDStatusReasonStart DateExpiration DateVisits RequestedVisits [id number] Donor Follow-upReasonComments Gynecologic ExamPt donated Kidney 08/2023. Pt would like to discuss control.Pt happy with current OCP. Menses silent with OCP, take OCP continuously. Denies bowel/bladder/breast concerns.ReasonCommentsAnnual Adult Preventive VisitReasonCommentsMigraine Care Teams (unrecognized sec tion and content) Team Status: Active Member Role Status Dates Tonia Morin , Primary Care Provider Active Team Status: Inactive Member Role Status Dates Tonia Morin , Primary Care Provider Active Wes Chaves , DO CHCAttending ProviderActiveTeam MemberRelationshipSpecialty Start DateEnd Date [facility], Other [address] [place] [address] PCP - Transplant CoordinatorTransplant04/16/23 Fatou Marr DO [address] [place] [address] PCP - GeneralInternal Medicine06/10/23Team MemberRelationshipSpecialtyStart Date End Date [facility] Other [address] [place] [address] PCP - Transplant CoordinatorTransplant04/16/23 Fatou Marr DO [address] [place] [address] PCP - GeneralInternal Medicine06/10/23Team MemberRelationshipSpecialtyStart Date End Date [facility] [address] [place] [address] PCP - Transplant CoordinatorTransplant04/16/23 Fatou Marr DO [address] [place] [address] PCP - GeneralInternal Medicine06/10/23Team MemberRelationshipSpecialtyStart Date End Date [facility] Other [address] [place] [phone] PCP - Transplant CoordinatorTransplant04/16/23 Fatou Marr DO [address] [place] [address] PCP - GeneralInternal Medicine06/10/23Team MemberRelationshipSpecialtyStart Date End Date [facility] Other [address] [place] [phone] PCP - Transplant CoordinatorTransplant04/16/23 Fatou Marr DO [address] [place] [address] PCP - GeneralInternal Medicine06/10/23Team MemberRelationshipSpecialtyStart Date End Date [facility] Other [address] [place] [phone] PCP - Transplant CoordinatorTransplant04/16/23 Fatou Marr DO [address] [place] [address] PCP - GeneralInternal Medicine06/10/23Team MemberRelationshipSpecialtyStart Date End Date [facility] Other [address] [place] [address] PCP - Transplant CoordinatorTransplant04/16/23 Fatou Marr DO [address] [place] [address] PCP - GeneralInternal Medicine06/10/23Team MemberRelationshipSpecialtyStart Date End Date [facility] [address] [place] [address] PCP - Transplant CoordinatorTransplant04/16/23 Fatou Marr DO [address] [place] [address] PCP - GeneralInternal Medicine06/10/23Team MemberRelationshipSpecialtyStart Date End Date Fatou Marr DO PCP - GeneralInternal Medicine10/15/22 Fatou Marr DO [address] [place] [address] PCP - Medical [place]11/10/1511Team MemberRelationshipSpecialty Start DateEnd Date [facility], Other [address] [place] [address] PCP - Transplant CoordinatorTransplant04/16/23 Fatou Marr DO [address] [place] [address] PCP - GeneralInternal Medicine06/10/23Team MemberRelationshipSpecialtyStart Date End Date Fatou Marr DO [address] [place] [address] PCP - GeneralInternal Medicine10/15/22 Fatou Marr DO [address] [place] [address] PCP - Medical [place] [employer]11/10/1511Team MemberRelationshipSpecialty Start DateEnd Date Fatou Marr DO [address] [place] [address] [facility] - [facility]10/15/22 Fatou Marr DO [address] [place] [address] PCP - [facility]11/10/1511Team MemberRelationshipSpecialty Start DateEnd Date Fatou Marr DO [address] [place] [address] PCP - [facility]10/15/22 Fatou Marr DO [address] [place] [address] PCP - [facility] Commercial11/10/1511 Team Status: Inactive Member Role Status Dates Tonia Morin DO Primary Care Provider Active Start: November 20, 2024 End: November 20norm MCGHEE DO CHCAttending ProviderActive Start: November 20, 2024 End: November 20, 2024Team MemberRelationshipSpecialtyStart DateEnd Date Fatou Marr DO [address] [place] [address] PCP - [facility]10/15/22 Fatou Marr DO [address] [place] [address] PCP - [facility] [place] [employer]11/10/1511Team MemberRelationshipSpecialty Start DateEnd Date Fatou Marr DO [address] [place] [address] PCP - GeneralInternal Medicine10/15/22 Fatou Marr DO [address] [place] [address] PCP - Medical [place]11/10/1511 Goals (unrecognized section and content) Goals may [...] RN) * 2344 (Given - Provider: Yesica Stallworth, CHANDRAKANT) * 0624 (Given - Provider: Yesica Stallworth [...] (Given - Provider: Zakia Moya RN) * 09 (Given - Provider: Crystal Cao RN) * 1700 (Canceled Entry - Provider: System Discharge - Comment: Automatically canceled at discontinue of medication order) Jlbmevzujjj-Kgkuzmnhn-Jthhyp 200-62.5-25 MCG/ACT AEPB 1 puff ++Patient supplied++ 1 puff, Inhalation, DAILY, First dose on Sat08/24/23 at 1115, Until Discontinued * 0900 (Given - Provider: Zakia Moya RN - Comment: Pt took after getting the okay from Dr. Mazariegos. Took prior to RN entering room) * 09 (Given - Provider: Crystal Cao RN) Gabapentin (NEURONTIN) capsule 100 mg 100 mg, Oral, DAILY AT BEDTIME, First dose on Sat08/23/23 at 2100, Until Discontinued, Post-op/Post-Proc * 2018 (Given - Provider: Yesica Stallworth RN) * 193 (Given - Provider: Yesica Stallworth [...] (Given - Provider: Zakia Moya RN) * 221 (Given - Provider: Yesica Stallworth RN) * 09 (Given - Provider: Crystal Cao RN) * 1600 (Canceled Entry - Provider: System Discharge - Comment: Automatically canceled at discontinue of medication order) Ketorolac (TORADOL) injection 15 mg (COMPLETED) 15 mg, Intravenous, EVERY 6 HOURS, 8 doses, First dose on Sat08/23/23 at 1800, Last dose on 08/25/23 at 1200, Post-op/Post-Proc * 1734 (Given - [...] 0926 (Given - Provider: Crystal Cao RN) Promethazine (PHENERGAN) tablet 25 mg (COMPLETED) 25 mg, Oral, ONCE, 1 dose, On 08/25/23 at 1300 * 1533 (Given - Provider: Crystal Cao RN) Scopolamine (TRANSDERM-SCOP) patch 1 patch(Linked Group 1) 1 patch, Transdermal, ONCE, 1 dose, On Sat08/23/23 at 0945, Apply patch to site behind the ear. Rotate sites for each application. Do not cut or alter patch. Each patch delivers 1 mg over 72 hours., Pre-op/Pre-Proc * 0938 (Patch Applied - Provider: Anum Wyatt RN) * 1637 (Due: Patch Removed - Provider: System Discharge - Comment: Time automatically adjusted from order being discontinued) Senna (SENOKOT) tablet 8.6 mg 8.6 mg, Oral, 2 TIMES DAILY, First dose on Sat08/23/23 at 1700, Until Discontinued, Post-op/Post-Proc * 1734 (Given - Provider: Zakia Moya RN) * 0831 (Given - Provider: Zakia Moya, CHANDRAKANT) * 1701 (Given - Provider: Zakia Moya, CHANDRAKANT) * 0926 (Given - Provider: Crystal Cao RN) * 1700 (Canceled Entry - Provider: System Discharge - Comment: Automatically canceled at discontinue of medication order) Medication Order/ Sodium chloride 0.9% IV solution (CANCELED) Intravenous, at 75 mL/hr, CONTINUOUS, Starting on Sat08/23/23 at 0745, Until Sat08/23/23 at 1550, Pre-op/Pre-Proc * 0835 ($$New Bag$$ - Provider: Tonie Avalos, CHANDRAKANT) * 1626 (Stopped - Provider: Zakia Moya RN) Sodium chloride 0.9% IV solution (CANCELED) Intravenous, at 100 mL/hr, CONTINUOUS, Starting on Sat08/23/23 at 1600, Until Sat08/24/23 at 0820, Post-op/Post-Proc * 1612 ($$New Bag$$ - Provider: Batool Corado, CHANDRAKANT) * 2320 (Rate/Dose Verify - Provider: Zakia Moya, CHANDRAKANT) * 0618 (Stopped - Provider: Zakia Moya, CHANDRAKANT) * 0618 ($$New Bag$$ - Provider: Yesica Stallworth RN) * 0833 (Stopped - Provider: Zakia Moya, CHANDRAKANT) Medication Order/ ceFAZolin (ANCEF) 2 g in dextrose 100 mL premix IVPB (COMPLETED) 2 g, Intravenous, Administer over 30 Minutes, SUMMER NANNY TO PROCEDURE, 1 dose, Starting on Sat08/23/23at 0739, Until Sat08/23/23 at 1218, Other, surgical prophylaxis, Initiate antibiotic [id number] minutes prior to surgical incision and complete administration prior to surgical incision., Pr e-op/Pre-Proc * 1203 ($$New Bag$$ - Provider: Aristides George APRN-GOODYEAR STITCHER) Heparin injection 5,000 Units (COMPLETED) 5,000 Units, Subcutaneous, SUMMER NANNY TO PROCEDURE, 1 dose, Starting on Sat08/23/23 at 0739, Until Sat08/23/23 at 1142, Other, Pre-op/Pre-Proc * 1142 (Given - Provider: Isabel Snell RN) HYDROmorphone (DILAUDID) injection 0.5 mg (CANCELED) 0.5 mg, Intravenous, EVERY 10 MINUTES NEEDED, 8 doses, Starting on Sat08/23/23 at 1453, Until 08/23/23 at 1550, Moderate Pain, Severe Pain, May [...] Post-op/Post-Proc * 2130 (Given - Provider: Yesica Stallworth RN) * 2222 (Given - Provider: Yesica Stallworth RN) [...] BE BASED ON THE PRIMARY CLINICAL RECORDS. [facility] provides no warranty or guarantee of the accuracy or completeness of information in this document.
== END 2025-01-15 13:35 | disposition home or self-care (01) ==
LOC: MRI 13:34
PROVIDERS: PCP Internal Medicine; Visit Provider Internal Medicine
DX: R79.89 Other specified abnormal findings of blood chemistry (principal); R51.9 Headache, unspecified; I77.82 Antineutrophilic cytoplasmic antibody [ANCA] vasculitis
CPT/HCPCS: 70553; A9575